=== PATIENT | male | born 1950 | race African-American/Black ===

== ENCOUNTER 2017-07-03 13:07 | Observation (INO) | payer MEDICARE, MEDICAID ==
[2017-07-03 13:38] LABS: #Lymphocytes 1.5 thou/uL (1.20-3.40); #Monocytes 0.5 thou/uL (0.11-0.59); #Neutrophils 3.2 thou/uL (1.40-6.50); %Basophils 0.4 % (0.0-1.0); %Eosinophils 0.8 % (0.0-10.0); %Lymphocytes 28.9 % (21.0-51.0); %Monocytes 8.6 % (0.0-10.0); Mean Platelet Volume 9.6 fL (7.4-10.4); Red Blood Cell (RBC) Count 4.31 mill/uL (4.70-6.10); White Blood Cell (WBC) Count 5.2 thou/uL (4.8-10.8)
--- NOTE | 2017-07-03 13:42 | RAD ---
PORTABLE CHEST: HISTORY: Chest pain. COMPARISON: Comparison is 2-view exam of 05/25/17. FINDINGS: The lungs are clear of infiltrate. Heart is mildly prominent in size. No evidence of vascular conge stion or edema. IMPRESSION: No evidence of acute process. POS: [facility]
[2017-07-03 14:09] LABS: ALT (SGPT) 27 U/L (8-55); AST (SGOT) 34 U/L (5-34); Alkaline Phosphatase 63 U/L (40-150); Anion Gap 11 mmol/L (10-20); BUN (Urea Nitrogen) 14 mg/dL (8.4-25.7); CK (CPK) 75 U/L (30-200); Calc. Creatinine Clearance 0 mL/min (70-130); Calcium 9.1 mg/dL (7.8-10.44); Carbon Dioxide 25 mmol/L (23-31); Chloride 107 mmol/L (98-107); Estimated GFR-MDRD 62; Globulin 3.3 g/dL (2.4-3.5); Protein, Total 6.8 g/dL (5.8-8.1)
[2017-07-03 14:34] LABS: Troponin I 0.034 ng/mL (< 0.028)
[2017-07-03] MEDS ORDERED: Furosemide 40 MG/4 ML VIAL ONE (15:49)
[2017-07-03 16:43] LABS: Acetaminophen Less than 6.0 mcg/mL (10.0-30.0); Salicylate Less than 8.0 mg/dL (15.0-30.0)
[2017-07-03 17:01] LABS: Amphetamine Not Detected (NotDetected); Methadone Not Detected (NotDetected); Methamphetamine Not Detected (NotDetected)
[2017-07-03 17:17] LABS: Troponin I 0.044 ng/mL (< 0.028)
[2017-07-03] MEDS ORDERED: traZODone HCl 50 MG TAB PO PRN (18:14)
[2017-07-03] MEDS ORDERED: Acetaminophen 500 MG TAB PO PRN (18:19)
[2017-07-03] MEDS ORDERED: Nitroglycerin 0.4 MG TAB (25 Tab Bottle) SL PRN (18:22)
[2017-07-03] MEDS ORDERED: methylPREDNISolone Sod Succ/PF 125 MG/2 ML VIAL IVP SCH (18:30)
[2017-07-03] MEDS: Mometasone/Formoterol 120 PUFF INHALER INH SCH (18:33)
[2017-07-03] MEDS: Atorvastatin Calcium 20 MG TAB PO SCH (19:45)
[2017-07-03] MEDS: Enoxaparin Sodium 40 MG/0.4 ML SYRINGE SC SCH (19:46)
[2017-07-03] MEDS: busPIRone HCl 10 MG TAB PO SCH (19:46)
[2017-07-03] MEDS: Gabapentin 300 MG CAP PO SCH (19:47)
[2017-07-03] MEDS: hydrOXYzine 25 MG TAB PO SCH (19:47)
[2017-07-03 20:33] LABS: Troponin I 0.039 ng/mL (< 0.028)
--- NOTE | 2017-07-03 23:47 | HP ---
PRIMARY CARE PHYSICIAN: Dr. Sid Rae. CHIEF COMPLAINT: Shortness of breath and chest pain. HISTORY OF PRESENT ILLNESS: The patient states for the last 1-2 weeks, he has had increasing shortne ss of breath and some substernal chest pain. He has a longstanding heart history including need for AICD placement, which he has delayed several times and has established care with Dr. Forbes on an out patient basis and is being followed by Dr. Osborne on an outpatient basis for his chronic obstructive pu lmonary disease. He states in the last week here, he has attempted a self-management with increase i n Lasix from 40 to 60 mg. He has not noted any lower extremity edema. Denies any fever or chills. Denies any productive sputum, currently. The patient states he continues to have some issues with sd s home health oxygen he normally wears on a p.r.n. basis, predominantly at nighttime. FORMAL REVIEW OF SYSTEMS: No fevers, no chills. Positive shortness of breath with exertion. Positi ve wheeze. Positive tobacco exposure. Patient currently smoking, no productive sputum. No abdomina l pain. Positive chest pain. No lower extremity edema. No dysuria. No urinary frequency. No skin breakdown. REVIEW OF THE PAST FAMILY, MEDICAL AND SOCIAL HISTORY: Includes COPD, hypertension, GERD, osteoarthr itis, seasonal allergies, recurrent, major depression, anxiety, anemia of chronic disease, home healt h oxygen, insomnia, neuropathy of left lower extremity, systolic congestive heart failure, tobacco ab use, opacified pupil right eye, erectile dysfunction, CKD stage 3, history of cocaine abuse and speed abuse, history of opioid dependency and glaucoma. PAST SURGICAL HISTORY: Here in [place], right hand abscess to tendon sheath and osteomyeliti s, status post drainage at the [facility] in [place] on 09/2016 to right thumb. SOCIAL HISTORY: The patient is living with his sister and his children socially. LISTED ALLERGIES: NIACIN. MEDICATIONS AT HOME: Carvedilol 12.5 mg 1 tab p.o. b.i.d., digoxin 125 mcg 1 tab p.o. q. day, baby a spirin 81 mg, trazodone 50 mg at bedtime 1 tab p.o. q. day, pantoprazole 40 mg 1 tab p.o. q. day, esc italopram 10 mg 1 tab p.o. q. day, ferrous sulfate 325 mg 1 tab p.o. q. day, naproxen sodium 500 mg 1 tab p.o. b.i.d. p.r.n. pain, buspirone 15 mg 1 tab p.o. b.i.d., furosemide 40 mg b.i.d. 1 tab p.o. q . day, Advair 250/50 mcg per actuation 1 inhalation p.o. b.i.d., Flonase 50 mcg 1 inhalation per nost ril twice daily, gabapentin 300 mg 1 tab p.o. b.i.d., atorvastatin 20 mg 1 tab p.o. q. day, Klor-Con 20 mEq 1 tab p.o. q. day, Combigan 0.2%-0.5% solution 1 gtt each eye twice daily, Spiriva 18 mcg inha lation q. day and Ventolin 90 mcg 2 puffs p.r.n. shortness of breath. LABORATORY AND IMAGING WORK: White blood cell count of 5.2, hemoglobin of 14.3 and platelet count of 169. D-dimer of 0.3. Sodium of 139, potassium of 4.4, CO2 of 25, creatinine of 1.38 and glucose of 103. AST is 34, ALT is 27, CK-MB of 1.6. BNP of 3100. Troponin 0.034, second troponin 0.044. UDS is negative. No plasma alcohol, acetaminophen or salicylates either. Chest x-ray without acute car diopulmonary events. No evidence of vascular congestion or edema. PHYSICAL EXAMINATION: VITAL SIGNS: Review of vital signs on arrival to the floor, temperature of 97.5, pulse of 62, respir atory rate of 18, oxygen saturation 97% on 2 liters nasal cannula and blood pressure 116/63. GENERAL: The patient is alert and oriented, in no acute distress. HEENT: Head is normocephalic and atraumatic. Extraocular movements are intact. Right pupil is opac ified. Oral mucosa is moist. NECK: Supple. HEART: Regular rate and rhythm. No murmurs auscultated. LUNGS: With bilateral wheezes all lung bunn. No rhonchi, rales or crackles. ABDOMEN: Soft and nontender. Positive bowel sounds throughout. EXTREMITIES: Lower extremities without cyanosis or edema. SKIN: Without breakdown with multiple tattoos. NEUROLOGIC: The patient is alert and oriented x3, no focal deficits. Speech is normal. The patient mostly labile with some depressed mood given social situation regarding family. ASSESSMENT: Chronic obstructive pulmonary disease exacerbation, systolic congestive heart failure, p resent on admission, depression, anxiety, dependent on home oxygen, elevated troponin, chronic kidney disease stage 2-3, tobacco abuse and other illicit drug use. PLAN: The patient has the poor ability to follow up with Pulmonology and Cardiology on an outpatient basis. We will get cardiology's input while he is inpatient. Observation at this point in time, al ternating troponins for any further evaluation. The patient has been scheduled for automatic implant able cardioverter-defibrillator placement 2 times in the past and he has left AMA or not followed up for placement. Last ejection fraction unknown, I believe 15% to 20%. He has received an additional echocardiogram with Dr. Forbes. IV Lasix given in the Emergency Department. His BNP is likely near his baseline given no signs of volume overload on exam during scheduled DuoNebs with IV Solu-Medrol x 1 with initiation of prednisone in the a.m. and continuation of other breathing treatments. Consulti case management for aid with setting up his home oxygen, he states he is out of his portable oxyge n canister. At this point in time, has compressor at home medication and had to seek accommodations to keep the power on due to his family members not being able to pay the bills for the power. Report edly, his sister just got arrested for shoplifting at [facility] regarding additional difficulties of so cial situation at home. If the patient's respiratory status deteriorates, we would consider a consul tation with Pulmonology; has seen Dr. Osborne on outpatient basis recently and if the patient's breathin g status stabilizes and no apparent NC under process, would likely be a candidate for discharge home soon.
[2017-07-04 04:48] LABS: #Lymphocytes 0.5 thou/uL (1.20-3.40); #Monocytes 0.1 thou/uL (0.11-0.59); %Eosinophils 0.2 % (0.0-10.0); %Lymphocytes 11.4 % (21.0-51.0); %Monocytes 2.3 % (0.0-10.0); Hematocrit 43.4 % (42.0-52.0); Mean Platelet Volume 9.9 fL (7.4-10.4); Red Blood Cell (RBC) Count 4.41 mill/uL (4.70-6.10); White Blood Cell (WBC) Count 4.6 thou/uL (4.8-10.8)
[2017-07-04 04:53] LABS: Digoxin Less than 0.15 ng/mL (0.8-2.0)
[2017-07-04 04:54] LABS: ALT (SGPT) 22 U/L (8-55); AST (SGOT) 23 U/L (5-34); Alkaline Phosphatase 66 U/L (40-150); Anion Gap 9 mmol/L (10-20); BUN (Urea Nitrogen) 17 mg/dL (8.4-25.7); Bilirubin, Total 0.9 mg/dL (0.2-1.2); Calc. Creatinine Clearance 51 mL/min (70-130); Calcium 9.1 mg/dL (7.8-10.44); Carbon Dioxide 28 mmol/L (23-31); Chloride 103 mmol/L (98-107); Estimated GFR-MDRD 56; Globulin 3.1 g/dL (2.4-3.5); Protein, Total 6.7 g/dL (5.8-8.1)
[2017-07-04] MEDS: Mometasone/Formoterol 120 PUFF INHALER INH SCH ×2 (06:52→19:53)
[2017-07-04] MEDS ORDERED: Spiriva 18 MCG CAP (Box of 5 Caps) INH SCH (07:00)
[2017-07-04] MEDS: Aspirin 325 MG TAB PO SCH (08:38)
[2017-07-04] MEDS: Carvedilol 6.25 MG TAB PO SCH ×2 (08:39→17:20)
[2017-07-04] MEDS: predniSONE 20 MG TAB PO SCH (08:39)
[2017-07-04] MEDS: Furosemide 20 MG TAB PO SCH ×2 (08:39→15:16)
[2017-07-04] MEDS: Escitalopram Oxalate 10 mg Tablet PO SCH (08:40)
[2017-07-04] MEDS: Digoxin 0.125 MG TAB PO SCH (08:40)
[2017-07-04] MEDS: busPIRone HCl 10 MG TAB PO SCH ×2 (08:42→19:38)
[2017-07-04] MEDS: Gabapentin 300 MG CAP PO SCH ×2 (08:42→19:38)
[2017-07-04] MEDS: Azithromycin 250 MG TAB PO SCH (08:42)
[2017-07-04] MEDS: Potassium Chloride 20 MEQ TAB PO SCH (08:42)
[2017-07-04] MEDS: Brimonidine Tartrate 0.2% Ophth Soln 5 ml Bottle EA EYE SCH (11:48)
[2017-07-04] MEDS: HYDROcodone/Acetaminophen 5/325 mg Tablet PO PRN ×2 (11:48→19:41)
[2017-07-04] MEDS: Timolol 0.5% Ophth Soln 5 ml Bottle EA EYE SCH (11:49)
--- NOTE | 2017-07-04 13:04 | PRG ---
DATE OF SERVICE: 07/04/2017 SUBJECTIVE: The patient is sitting up in bed. Reports improved breathing, but still having shortnes s of breath. He denies chest pain at this time. PHYSICAL EXAMINATION: VITAL SIGNS: Temperature is 97.4, pulse 65, respirations 20, oxygen saturation 96% on 2 liters and b lood pressure 133/77. GENERAL: Alert and oriented, in no acute distress. HEENT: Normocephalic. Pupils equally round and react to light. Extraocular muscles intact. Moist mucous membranes. HEART: Regular rate and rhythm. No murmurs. LUNGS: Positive for mild diffuse wheezes. No rales. ABDOMEN: Soft, nontender, bowel sounds heard throughout. EXTREMITIES: No cyanosis, clubbing or edema. SKIN: No rashes or lesions. LABORATORY DATA: White blood cell count 4.6, hemoglobin 14.6, hematocrit 43.4, platelets 153. Sodium 137, potassium 3.2, chloride 103, carbon dioxide 28, BUN 17, creatinine 1.51, glucose 285, tricia cium 9.1, total bilirubin 0.9, AST 23, ALT 22, alkaline phosphatase 66. CK-MB 1.6, troponin 0.034, 0 .044, 0.039. BNP 3180, total protein 6.7, albumin 3.6, globulin 3.1. Drug screen negative. ASSESSMENT AND PLAN: 1. Chronic obstructive pulmonary disease exacerbation. Continue oral steroids, antibiotics and oxyg en as needed. 2. Chronic systolic congestive heart failure. 3. Chronic kidney disease stage 3. 4. Extensive history of drug use, drug screen was negative on this admission. DISPOSITION: The patient's symptoms on this admission more likely due to COPD exacerbation. However , he does have severe CHF and has been advised to have an AICD placed, but he has deferred. He has s een Dr. Forbes in the past. His BNP is up to greater than 3000 on this admission, which may be contr ibuting to his symptoms, but he does not appear to be fluid overloaded at this time. We have asked C ardiology to evaluate him while he is here.
[2017-07-04 17:26] VITALS: BMI 21.2
[2017-07-04] MEDS: Atorvastatin Calcium 20 MG TAB PO SCH (19:38)
[2017-07-04] MEDS: Enoxaparin Sodium 40 MG/0.4 ML SYRINGE SC SCH (19:38)
[2017-07-04] MEDS: hydrOXYzine 25 MG TAB PO SCH (19:39)
[2017-07-05] MEDS: Mometasone/Formoterol 120 PUFF INHALER INH SCH (07:05)
--- NOTE | 2017-07-05 08:10 | CON ---
DATE OF CONSULTATION: 07/04/2017 HISTORY: Humberto Sandhu is a pleasant 67-year-old black male with history of heart failure for several years. He apparently has syncopal episode 1 year ago in [place], [place]. He has undergone multiple cardiac catheterizations , is already has been told that he did not have any significant coronary artery disease. He also was placed on LifeVest, which he wore up until 4 or 5 months ago. He moved to this area approximately 3 months ago. He now is admitted with shortness of breath and pressure in his chest that seems to be somewhat pleuritic in nature. He had borderline cardiac enzymes and consultation was requested. PAST MEDICAL HISTORY: COPD on home oxygen, hypertension, GERD, arthritis, anxiety, depression, systolic dysfunction, history of cocaine abuse and methamphetamine abuse, glaucoma, chronic kidney disease. OPERATIONS: Drainage of her right hand abscess. MEDICATIONS: At home include carvedilol 12.5 b.i.d. (he stopped lisinopril due to hypotension) buspirone 15 mg daily, Durezol eyedrops, digoxin 0.125 daily, Lexapro 10 mg daily, ferrous sulfate 325 daily, Flovent daily, furosemide 40 mg daily, gabapentin 300 b.i.d., naproxen 500 b.i.d., Protonix 40 daily, KCl 20 mEq daily, and trazodone 50 at bedtime. ALLERGIES: NIACIN. SOCIAL HISTORY: Continues to intermittently smoke. FAMILY HISTORY: Negative for coronary artery disease. PHYSICAL EXAMINATION: VITAL SIGNS: 115/71, pulse 63. HEENT: PERRL. CHEST: Reveal expiratory wheezing bilaterally. CARDIOVASCULAR: S1 and S2 are normal, without any S3, S4 or murmurs. ABDOMEN: Normal bowel sounds, without tenderness, organomegaly. EXTREMITIES: Revealed no clubbing, cyanosis, or edema. NEUROLOGIC: Grossly intact. SKIN: Warm and dry. LABORATORY DATA: EKG revealed normal sinus rhythm, low voltage, possible septal infarction. Sodium 137, potassium 3.2, chloride 103, carbon dioxide 28, BUN is 17, creatinine 1.51, glucose 285, troponin I 0.044, CK-MB is normal. BNP 3180.1, hemoglobin 14.6, hematocrit 43.4, white count 4600, platelets 153, 000. IMPRESSION: 1. Chronic obstructive pulmonary disease exacerbation. 2. Severe left ventricular dysfunction with ejection fraction in the office 1 month ago of 15-20%, arrangements have been made for him to see Dr. Tavares for ICD placement; however, he states that he "chickened out" and does not wish to have an ICD placed. 3. Hypertension. 4. Gastroesophageal reflux disease. 5. Currently, no significant coronary artery disease on catheterizations in the past according to the patient. RECOMMENDATIONS: Mr. Sandhu has apparently canceled when he had ICD scheduled and essentially does not wish to have 1 placed. At the present time, his breathing has improved with intravenous steroids and increased neb treatments. I do not feel that it is minimally elevated, troponin I's need to be further evaluated and probably related to demand ischemia. JONATHAN
[2017-07-05] MEDS: Gabapentin 300 MG CAP PO SCH (08:31)
[2017-07-05] MEDS: Digoxin 0.125 MG TAB PO SCH (08:31)
[2017-07-05] MEDS: Escitalopram Oxalate 10 mg Tablet PO SCH (08:31)
[2017-07-05] MEDS: Furosemide 20 MG TAB PO SCH (08:31)
[2017-07-05] MEDS: Azithromycin 250 MG TAB PO SCH (08:32)
[2017-07-05] MEDS: Aspirin 325 MG TAB PO SCH (08:32)
[2017-07-05] MEDS: Timolol 0.5% Ophth Soln 5 ml Bottle EA EYE SCH (08:32)
[2017-07-05] MEDS: Carvedilol 6.25 MG TAB PO SCH (08:32)
[2017-07-05] MEDS: predniSONE 20 MG TAB PO SCH (08:32)
[2017-07-05] MEDS: busPIRone HCl 10 MG TAB PO SCH (08:32)
[2017-07-05] MEDS: Potassium Chloride 20 MEQ TAB PO SCH (08:32)
[2017-07-05] MEDS: Brimonidine Tartrate 0.2% Ophth Soln 5 ml Bottle EA EYE SCH (08:33)
[2017-07-05 11:34] VITALS: BP 104/72; TEMP 98.6
--- NOTE | 2017-07-05 18:49 | DIS ---
DATE OF DISCHARGE: 07/03/2017 DATE OF DISCHARGE: 07/05/2017 PRIMARY CARE PHYSICIAN: Dr. Sid Rae. ADMISSION DIAGNOSES: 1. Chronic obstructive pulmonary disease exacerbation. 2. Chronic systolic congestive heart failure. 3. Anxiety. 4. Indeterminate troponins. DISCHARGE DIAGNOSES: 1. Chronic obstructive pulmonary disease exacerbation, improved. 2. Chronic systolic congestive heart failure. 3. Chronic kidney disease stage 3. 4. Extensive history of drug use. CONSULTS: Dr. James, Cardiology. PROCEDURES: None. DISCHARGE MEDICATIONS: 1. Continue home medications. 2. Azithromycin 250 mg p.o. q. day for 3 more days. 3. Prednisone 40 mg p.o. q. day for 5 more days. 4. [place] 10/325 mg p.o. b.i.d. p.r.n. severe pain, quantity 15. HOSPITAL COURSE: This is a 67-year-old black male with past medical history of COPD, CHF, CKD, exten sive history of drug use, who presented to the emergency room with shortness of breath for a couple o f weeks. He did have wheezing on exam. He was given IV steroids and continued oral steroids. Prior to discharge, his wheezing resolved as well as his shortness of breath and cough. As for his chronic congestive heart failure, he was not fluid overloaded on this hospital visit. He has been advised to have an AICD placed, but has refused. Dr. James did see him on this hospital admission and again discussed with him his severe heart failure. The patient continues to refuse con tinued treatment for this. DISPOSITION: Stable. DISCHARGE INSTRUCTIONS: 1. Discharged to home. 2. Activity: Ad rashmi. 3. Diet: Heart healthy. 4. Followup: Follow up visit with Dr. Rae in 7-10 days.
== END 2017-07-05 12:45 | disposition home or self-care (01) ==
LOC: ERS 13:07 → 2SW 16:05
PROVIDERS: ADMIT Family Medicine; ATTEND Family Medicine
DX: J44.1 Chronic obstructive pulmonary disease with (acute) exacerbation (principal); I13.0 Hypertensive heart and chronic kidney disease with heart failure and stage 1 through stage 4 chronic kidney disease, or unspecified chronic kidney disease; I50.22 Chronic systolic (congestive) heart failure; N18.3 Chronic kidney disease, stage 3 (moderate); F14.10 Cocaine abuse, uncomplicated; F17.200 Nicotine dependence, unspecified, uncomplicated; M19.90 Unspecified osteoarthritis, unspecified site; K21.9 Gastro-esophageal reflux disease without esophagitis; G47.00 Insomnia, unspecified; Z88.8 Allergy status to other drugs, medicaments and biological substances; Z79.899 Other long term (current) drug therapy
CPT/HCPCS: 71010; 80053 ×2; 80162; 80306; 80307; 82550; 82553; 83880; 84484 ×2; 85025 ×2; 85379; 93005; 94640 ×8; 94760; 96372 ×2; 96374; 96375; 99285; G0378; 36415; J1650; J1940; J2930; J7506; J7620

== ENCOUNTER 2017-07-23 21:38 | Emergency (ER) | payer MEDICARE, MEDICAID ==
[2017-07-23] MEDS ORDERED: Proparacaine 0.5% Opth 15 ML BOT ONE (23:05)
[2017-07-23] MEDS ORDERED: Fluorescein Opthalmic Strip ONE (23:05)
[2017-07-23] MEDS ORDERED: Ketorolac Tromethamine 30 MG/ML VIAL ONE (23:33)
[2017-07-23] MEDS ORDERED: Ciprofloxacin 0.3% Ophth Drops 2.5 ml Bottle EA EYE SCH (23:45)
== END 2017-07-23 23:57 | disposition home or self-care (01) ==
LOC: ERS 21:38
DX: H10.9 Unspecified conjunctivitis (principal); I11.0 Hypertensive heart disease with heart failure; I50.9 Heart failure, unspecified; E78.5 Hyperlipidemia, unspecified; J43.9 Emphysema, unspecified; F41.9 Anxiety disorder, unspecified; F17.210 Nicotine dependence, cigarettes, uncomplicated
CPT/HCPCS: 36415; 71045; 80053; 80306; 80307; 81003; 82550; 82553; 83880; 84484; 85025; 85610; 85730; 93005; 96372; 96374; J1885

== ENCOUNTER 2017-07-25 19:41 | Emergency (ER) | payer MEDICARE, MEDICAID ==
[2017-07-25] MEDS ORDERED: Fluorescein Opthalmic Strip ONE (21:46)
[2017-07-25] MEDS ORDERED: Proparacaine 0.5% Opth 15 ML BOT ONE (21:46)
[2017-07-25] MEDS ORDERED: Ketorolac Tromethamine 30 MG/ML VIAL ONE (21:55)
== END 2017-07-25 22:45 | disposition home or self-care (01) ==
LOC: ERS 19:41
DX: H16.001 Unspecified corneal ulcer, right eye (principal); H10.9 Unspecified conjunctivitis; I11.0 Hypertensive heart disease with heart failure; I50.9 Heart failure, unspecified; J44.9 Chronic obstructive pulmonary disease, unspecified; F41.9 Anxiety disorder, unspecified; F17.210 Nicotine dependence, cigarettes, uncomplicated; E78.5 Hyperlipidemia, unspecified
CPT/HCPCS: 96372; J1885

== ENCOUNTER 2017-08-01 16:13 | Inpatient (IN) | payer MEDICARE, MEDICAID ==
[2017-08-01] MEDS ORDERED: Nitroglycerin 0.4 MG TAB (25 Tab Bottle) ONE (16:34)
[2017-08-01] MEDS ORDERED: Nitroglycerin 50 MG/250 ML BOT 0 ML ONE (16:35)
[2017-08-01 16:39] LABS: #Eosinphils 0.1 thou/uL (0.0-0.7); #Lymphocytes 1.5 thou/uL (1.20-3.40); #Monocytes 0.9 thou/uL (0.11-0.59); #Neutrophils 4.3 thou/uL (1.40-6.50); %Basophils 0.2 % (0.0-1.0); %Eosinophils 1.6 % (0.0-10.0); %Lymphocytes 22.4 % (21.0-51.0); %Monocytes 12.7 % (0.0-10.0); %Neutrophils 63.2 % (42.0-75.0); Hemoglobin 13.5 g/dL (14.0-18.0); Mean Corpuscular HGB CONC 32.5 g/dL (32.0-36.0); Mean Corpuscular Hemoglobin 32.6 pg (27.0-31.0); Mean Platelet Volume 7.5 fL (7.4-10.4); Platelet Count 300 thou/uL (130-400); RBC Distribution Width 12.8 % (11.5-14.5); Red Blood Cell (RBC) Count 4.14 mill/uL (4.70-6.10); White Blood Cell (WBC) Count 6.8 thou/uL (4.8-10.8)
[2017-08-01] MEDS ORDERED: Insulin Regular 300 UNITS/3 ML VIAL ONE (16:43)
[2017-08-01] MEDS ORDERED: Sodium Bicarb 50 MEQ/50 ML Abboject 8.4% SYRINGE ONE (16:43)
[2017-08-01] MEDS ORDERED: Dextrose 50% Abboject 50 ML SYRINGE ONE (16:43)
[2017-08-01] MEDS ORDERED: Calcium Chloride 1 GM/10 ML Abboject SYRINGE ONE (16:43)
[2017-08-01] MEDS ORDERED: Amiodarone In Dextrose 200 ML IVPB SCH ×2 (16:45→18:00)
[2017-08-01] MEDS ORDERED: Calcium Gluc 4.6 MEQ/10 ML (100 MG/ML) ONE (16:46)
[2017-08-01] MEDS ORDERED: Albuterol Sulfate 2.5 mg/3 ml Neb ONE (16:50)
[2017-08-01] MEDS ORDERED: Albuterol Sulfate 2.5 mg/0.5 ml Neb ONE (16:50)
[2017-08-01 16:58] LABS: ALT (SGPT) 23 U/L (8-55); AST (SGOT) 27 U/L (5-34); Albumin 3.9 g/dL (3.4-4.8); Alkaline Phosphatase 68 U/L (40-150); Anion Gap 15 mmol/L (10-20); BUN (Urea Nitrogen) 10 mg/dL (8.4-25.7); Bilirubin, Total 1.4 mg/dL (0.2-1.2); CK (CPK) 166 U/L (30-200); Calc. Creatinine Clearance 0 mL/min (70-130); Calcium 9.5 mg/dL (7.8-10.44); Carbon Dioxide 29 mmol/L (23-31); Chloride 99 mmol/L (98-107); Estimated GFR-MDRD 69; Globulin 3.6 g/dL (2.4-3.5); Glucose 100 mg/dL (80-115); Lipase 11 U/L (8-78); Potassium 3.5 mmol/L (3.5-5.1); Protein, Total 7.5 g/dL (5.8-8.1); Sodium 139 mmol/L (136-145)
[2017-08-01 17:00] LABS: CKMB 2.1 ng/mL (0-6.6); Troponin I 0.064 ng/mL (< 0.028)
[2017-08-01] MEDS ORDERED: Potassium Chloride 20 MEQ/100 ML PREMIX BAG ONE (17:07)
--- NOTE | 2017-08-01 17:13 | RAD ---
CHEST ONE VIEW 08/01/17 HISTORY: Chest pain. COMPARISON: CHEST ONE VIEW 07/23/17. The heart size is enlarged. There are air space opacities in both lung bases. Nodular density is pres ent in the left lung base. No pneumothorax. Right upper lobe and right middle lobe air space opacities are also present. IMPRESSION: 1. Concern for multifocal air space opacities in the lower lobe and right middle lobe. Followup recommended. 2. Cardiomegaly. 3. Nodular density left lung base may represent calcified granuloma versus prominent nipple shad ow. POS: [facility]
[2017-08-01] MEDS ORDERED: CCU Electrolyte Replacement 1 EACH FS SCH (18:00)
[2017-08-01] MEDS ORDERED: cefTRIAXone\\ROCEPHIN 1 GM in Sodium Chloride 0.9% 100 ML IVPB SCH (18:00)
[2017-08-01] MEDS ORDERED: Potassium Phosphate 9 MMOL in Sodium Chloride 0.9% 100 ML IVPB PRN (18:16)
[2017-08-01] MEDS ORDERED: Potassium Phosphate 12 MMOL in Sodium Chloride 0.9% 250 ML 250 ML IV PRN (18:16)
[2017-08-01] MEDS ORDERED: Potassium Phosphate 15 MMOL in Sodium Chloride 0.9% 250 ML 250 ML IV PRN (18:16)
[2017-08-01] MEDS ORDERED: Magnesium 2 GM/NS 0.9% 100 ML 2 GM in Premix Bag 1 BAG IVPB PRN (18:16)
[2017-08-01] MEDS ORDERED: Potassium Chloride 20 MEQ TAB PO PRN (18:16)
[2017-08-01] MEDS ORDERED: CCU ELECTROLYTE REPLACEMENT PROTOCOL FS PRN (18:16)
[2017-08-01] MEDS ORDERED: Magnesium Oxide 400 MG TAB PO PRN ×2 (18:16)
[2017-08-01] MEDS ORDERED: Potassium Chloride 40 MEQ in Sodium Chloride 0.9% 250 ML 250 ML IVPB PRN (18:16)
[2017-08-01] MEDS ORDERED: Ondansetron HCl/PF 4 MG/2 ML Vial IVP PRN (19:42)
[2017-08-01] MEDS ORDERED: D5 1/2 NS w/20 mEq KCL 1,000 ML IV SCH (19:45)
[2017-08-01] MEDS ORDERED: Amiodarone HCl 150 MG, Admixture Fee 1 EACH in Dextrose 5% in Water 100 ML IVPB SCH (19:45)
[2017-08-01] MEDS ORDERED: Nitroglycerin 2% Ointment 1 INCH/1 GM Packet TOP SCH (19:45)
[2017-08-01 19:47] VITALS: BMI 21.7
[2017-08-01] MEDS: Gabapentin 300 MG CAP PO SCH (19:57)
[2017-08-01] MEDS: traZODone HCl 50 MG TAB PO SCH ×2 (19:57→20:13)
[2017-08-01] MEDS: cefTRIAXone\\ROCEPHIN 1 GM, Syringe 0.4 ML in Sterile Water 9.6 ML SLOW IVP SCH (20:29)
[2017-08-01 20:30] LABS: Troponin I 0.059 ng/mL (< 0.028)
--- NOTE | 2017-08-01 20:48 | HP ---
PRIMARY CARE PHYSICIAN: Sid Rae MD CHIEF COMPLAINT: Chest pain, shortness of breath. HISTORY OF PRESENT ILLNESS: This is a 67-year-old gentleman with a long history of coronary artery disease with severely depressed left ventricular ejection fraction, a long history of COPD, history of homelessness, history of drug abuse, who presented to the emergency department with the worsening chest pain and shortness of breath. He has been to the emergency department several times over the past 1 week. He was seen in the ER on 07/23/2017 due to chest pain. He was found to have an abnormal chest x-ray on that visit with evidence of nonspecific densities in the lung bases. He was treated in the ED and sent home. He was to follow up with Dr. Rae, prior to this admission. He states that he had become more and more short of breath at home and not able to manage and now, he is being brought into the hospital for further evaluation. In the emergency department, he was found to have abnormal rhythm. He has a history of severely depressed left ventricular ejection fraction. He was told to wear a LifeVest from Electrophysiology and was planning on having an ICD placed when he decided to refuse that and removed the LifeVest. He understands the possible consequences of not wearing a LifeVest and not having an ICD placed including and he continues to refuse pursuing this at this time. PAST MEDICAL HISTORY: COPD, end-stage coronary artery disease with severely decreased left ventricular, chronic kidney disease stage 3, history of cocaine and amphetamine abuse, history of opioid dependency, history of glaucoma, right eye blindness, depression and anxiety, anemia of chronic disease, neuropathy of the left lower extremity. PAST SURGICAL HISTORY: Abscess of his right hand repair with osteomyelitis status post drainage at the [facility] to his right thumb in 09/2016, repeated cardiac catheterizations. He also states that he was told he needed a stent place, but he refused that as well. MEDICATIONS: Include carvedilol 12.5 mg b.i.d., digoxin 125 mcg daily, aspirin 81 mg daily, trazodone 50 mg at bedtime, pantoprazole 40 mg daily, Lexapro 10 mg daily, ferrous sulfate 325 mg daily, naproxen p.r.n. pain, buspirone 15 mg b.i.d., furosemide 40 mg b.i.d., Advair 250/50 b.i.d., Flonase daily, gabapentin 300 mg b.i.d., atorvastatin 20 mg daily, Klor-Con 20 mEq daily, eyedrops, Spiriva 18 mcg daily. SOCIAL HISTORY: Lives with a roommate. He is single. He does have 3 children. FAMILY HISTORY: Mother , father of possible diabetes, possible blood clot, states he has siblings with heart disease as well. REVIEW OF SYSTEMS: As per the history of present illness. General: Denies any recent fevers, chills. HEENT: Positive blindness in the right eye. Denies congestion. Denies headache. Cardiac: As per the history of present illness. He admits to chest pains, admits to shortness of breath. Positive palpitations, see last cardiac consultation from the last hospitalization in June. Pulmonary: Positive cough, positive shortness of breath, no hemoptysis. Uncertain of TB exposure. Gastrointestinal: No nausea, vomiting, abdominal pain, melena, or hematochezia. Genitourinary: He has a history of a ventral hernia, which causes some pain when he is coughing. Neurologic: Positive history of neuropathy. Psychiatric: Positive depression. Positive anxiety. Positive history of drug use. Musculoskeletal: Positive joint pains. OBJECTIVE: VITAL SIGNS: Temperature is afebrile, heart rate 80-90 and irregular, respirations 15-20, blood pressure 130 over 80s. GENERAL: He is awake and alert. Speech is clear. Mucosa is moist. He has opacity in his right cornea. NECK: Supple. HEART: Irregular with ectopy. LUNGS: With scattered rhonchi, positive for expiratory wheezes. Decreased breath sounds throughout. ABDOMEN: He does have a palpable ventral hernia, soft, nontender, nondistended. No hepatosplenomegaly. EXTREMITIES: No clubbing, cyanosis, or edema. Has 2+ peripheral pulses bilaterally. LABORATORY DATA: White blood cell count 6.8, hemoglobin and hematocrit 13.5 and 41.6 with microcytic indices, platelets of 300. Sodium 139, potassium 3.5, chloride 99, CO2 of 29, BUN and creatinine 10 and 1.27 with a GFR of 69, serum glucose of 100. Lactic acid 2.6, total bilirubin slightly elevated at 1.4, calcium of 9.5. AST and ALT are normal. Creatinine kinase was normal. Troponins are indeterminate of 0.04 and 0.06. Lipase was normal. TSH was normal. Influenza was negative. Chest x-ray compared to 1 week ago, revealed a right upper lobe and right middle lobe airspace opacities concerning for multifocal airspace opacities in the lower lobe and right middle lobe, cardiomegaly. ASSESSMENT: This is a 67-year-old gentleman with end-stage heart disease and severe chronic obstructive pulmonary disease, now with bilateral pneumonia. PLAN: 1. Pneumonia. We will admit due to his severe COPD and episodes of hypoxemia, we will admit him to the ICU. I will continue IV antibiotics, albuterol therapy , as well as steroids. 2. Severe left ventricular dysfunction with ejection fraction of less than 20% , now with arrhythmias. He refuses ICD placement with Dr. Tavares, recently. We will continue with an amiodarone drip as per Dr. Wasserman. 3. Hypertension is stable. We will continue meds. 4. History of gastroesophageal reflux disease. We will continue Protonix prophylactically. 5. Disposition. Will assure a safe place of discharge. He may need placement. CODE STATUS: After a discussion, at this time, the patient desires FULL CODE. MTDD
[2017-08-01] MEDS ORDERED: Amiodarone 200 MG TAB PO SCH (21:00)
[2017-08-01] MEDS ORDERED: FLU VACC TS2017-18 (>65YR) 0.5 ML SYRINGE IM ONE (21:00)
[2017-08-01] MEDS ORDERED: Carvedilol 6.25 MG TAB PO SCH (21:00)
[2017-08-01] MEDS ORDERED: Azithromycin 500 MG in Sodium Chloride 0.9% 250 ML 250 ML IVPB SCH (21:00)
[2017-08-01 21:02] LABS: Lactic Acid 0.9 mmol/L (0.5-2.2)
[2017-08-01] MEDS ORDERED: DOPamine 400 MG/D5W 250 ML 250 ML ONE (21:18)
[2017-08-01] MEDS ORDERED: DOBUTamine 500 mg/250 ml 250 ML ONE (21:19)
[2017-08-01] MEDS ORDERED: Diazepam 10 MG/2 ML SYRINGE IVP SCH (22:15)
[2017-08-01 22:39] LABS: Actual Bicarbonate (HCO3a) 23.1 mEq/L (22-26); Base Excess (BEa) -2.7 mEq/L (0 (+/-) 2.5); CO2 Tension 44.3 mmHg (35.0-45.0); O2 Tension (PaO2) 65.5 mmHg (80.0-100.0); pH, Arterial 7.34 (7.35-7.45)
[2017-08-01 22:40] LABS: Calcium, Ionized 1.1 mmol/L (1.12-1.30); Hematocrit-ABG 36.8 % (42.0-52.0); Hemoglobin (Hb) 12.1 g/dL (14.0-18.0); Puncture Site RRAD
--- NOTE | 2017-08-01 23:51 | RAD ---
CHEST ONE VIEW 08/01/17 HISTORY: Central line placement. COMPARISON: Chest one view same day. FINDINGS: Interval placement of the internal jugular central venous catheter with the tip at the inferior SVC. Worsening right lower and mid lung air space opacities. Heart size is enlarged. IMPRESSION: 1. Worsening air space opacities concerning for pneumonia. 2. Satisfactory position of the central venous catheter without complication. POS: [facility]
[2017-08-02 00:03] LABS: Troponin I 0.061 ng/mL (< 0.028)
[2017-08-02] MEDS: Amiodarone HCl 450 MG, Admixture Fee 1 EACH in Dextrose 5% in Water 250 ML IVPB SCH ×2 (00:22→14:39)
--- NOTE | 2017-08-02 01:09 | CON ---
DATE OF CONSULTATION: 08/01/2017 REASON FOR CONSULTATION: Cardiomyopathy and nonsustained VT. PRIMARY CARE PROVIDER: Dr. Dwayne Herrera. Total critical care time 50 minutes. HISTORY OF PRESENT ILLNESS: Mr. Sandhu is an unfortunate 67-year-old gentleman who was seen and evalu ated by Dr. Emory James in June. He has a history of nonischemic cardiomyopathy. He has ref used ICD placement in the past. He recently presented with increased shortness of breath, and palpit ations. He also has a history of continued cocaine and amphetamine use. He describes PND and orthop ankit. He states he has worn a LifeVest for over 3 months in the past. When it came time for ICD plac ement, he refused. PAST MEDICAL HISTORY: As above including COPD, glaucoma, right eye blindness, neuropathy, anemia. HOME MEDICATIONS: Include carvedilol, digoxin, aspirin, trazodone, pantoprazole, Lexapro, iron sulfa te, naproxen, buspirone, furosemide, Flonase, atorvastatin, and Spiriva. SOCIAL HISTORY: He is single with 3 children. REVIEW OF SYSTEMS: Ten point review of systems is reviewed and as above, otherwise negative. PHYSICAL EXAMINATION: GENERAL: Patient is a pleasant male/female who is in no acute distress. The patient does appear older than stated age. VITAL SIGNS: Blood pressure 121/97, pulse 89, temperature 98.1. NEUROLOGIC: The patient is alert and oriented times 3 with no focal neurologic deficits. HEENT: Sclerae without icterus. Mouth has moist mucous membranes with normal pallor. NECK: No JVD. Carotid upstroke brisk. No bruits bilaterally. LUNGS: Clear to auscultation with unlabored respirations. BACK: No scoliosis or kyphosis. CARDIAC: Regular rate and rhythm with normal S1 and S2. No S3 or S4 noted. No significant rubs, murmurs, thrills, or gallops noted throughout the precordium. PMI is not displa christiana. There is no parasternal heave. ABDOMEN: Soft, nontender, nondistended. No peritoneal signs present. No hepatosplenomegaly. No abnormal striae. EXTREMITIES: 2+ femoral and 2+ dorsalis pedis pulses. No cyanosis, clubbing, or edema. SKIN: No gross abnormalities. PERTINENT LABORATORY DATA: Hemoglobin 13.5. Peak troponin 0.064. Lactic acid 0.9, hemoglobin 13.5, white blood cell count 6.8. ER COURSE: Patient was given a dose of IV amiodarone with improvement in PVCs. He continued to have PVCs while in the ICU and was given additional dose of 150 mg amiodarone. IMPRESSION: 1. Nonischemic cardiomyopathy. 2. Nonsustained ventricular tachycardia. 3. Noncompliance. 4. Cocaine and amphetamine use. RECOMMENDATIONS: Patient has been given a total of 300 mg of amiodarone. We would recommend continu ed amiodarone drip. He would likely benefit from ICD placement. I did discuss this with Mr. Sandhu. He is amenable to ICD placement. We will continue to monitor closely in the ICU. ADDENDUM: I was called 3 hours after and came in to see Mr. Sandhu. He was refusing all treatment. His ABG revealed a pH of 7.3 with CO2 of 44 and pO2 of 65. He stated he was having difficulty breath ing. His lungs appeared clear. He was bradycardic and hypotensive. He did receive a dose of Coreg 12.5 mg x1. This has now been held. He will start dopamine/dobutamine at 5 and 5. I did disc uss continued treatment with Mr. Sandhu. The patient appears ambivalent and not committed to treatmen t. He did state to the nurses he wanted to be DNR, but could not make a decision when I discussed th e same issue with Mr. Sandhu. We will continue treatment. He appears to be of sound mind and at this point, he is able to make his own decisions and will honor his wishes. If he decides to not proceed with any further therapy, we will need to cease. As long as he continues to comply, we will continu e to treat him aggressively.
[2017-08-02] MEDS: DOBUTamine 500 mg/250 ml 500 MG in Premix Bag 1 BAG IVPB SCH ×3 (03:41→21:03)
[2017-08-02 05:39] LABS: #Eosinphils 0.1 thou/uL (0.0-0.7); #Monocytes 0.9 thou/uL (0.11-0.59); #Neutrophils 6.1 thou/uL (1.40-6.50); %Basophils 0.1 % (0.0-1.0); %Eosinophils 0.9 % (0.0-10.0); %Lymphocytes 12.7 % (21.0-51.0); %Monocytes 10.9 % (0.0-10.0); %Neutrophils 75.4 % (42.0-75.0); Hemoglobin 11.4 g/dL (14.0-18.0); Mean Corpuscular HGB CONC 32.1 g/dL (32.0-36.0); Mean Corpuscular Hemoglobin 32.1 pg (27.0-31.0); Mean Platelet Volume 7.9 fL (7.4-10.4); Platelet Count 226 thou/uL (130-400); RBC Distribution Width 12.7 % (11.5-14.5); Red Blood Cell (RBC) Count 3.55 mill/uL (4.70-6.10); White Blood Cell (WBC) Count 8.1 thou/uL (4.8-10.8)
[2017-08-02 05:53] LABS: ALT (SGPT) 23 U/L (8-55); AST (SGOT) 39 U/L (5-34); Albumin 3.3 g/dL (3.4-4.8); Alkaline Phosphatase 100 U/L (40-150); Anion Gap 10 mmol/L (10-20); BUN (Urea Nitrogen) 10 mg/dL (8.4-25.7); Bilirubin, Total 0.9 mg/dL (0.2-1.2); Calc. Creatinine Clearance 71 mL/min (70-130); Calcium 8.7 mg/dL (7.8-10.44); Carbon Dioxide 32 mmol/L (23-31); Chloride 101 mmol/L (98-107); Estimated GFR-MDRD 82; Glucose 128 mg/dL (80-115); Protein, Total 6.3 g/dL (5.8-8.1); Sodium 140 mmol/L (136-145)
[2017-08-02 05:58] LABS: Potassium 2.9 mmol/L (3.5-5.1)
[2017-08-02] MEDS: Potassium Chloride 40 MEQ in Premix Bag 1 BAG IVPB PRN (06:04)
[2017-08-02 06:11] LABS: HIV (1/2) Antibody/Antigen Non-Reactive (NonReactive); HIV 1/2 INDEX 0.21 S/CO (<1.00)
--- NOTE | 2017-08-02 06:46 | OP-2 ---
DATE OF PROCEDURE: 07/22/2017 PROCEDURE: Internal jugular central line placement. INDICATION: Multiple medication administration. We were consulted by Dr. Herrera. PROCEDURE TALENT ADVISOR: Dr. Mejia and Dr. Lida Navas. ATTENDING PHYSICIAN: Dr. Shelton. CONSENT: Consent was obtained from Mr. Sandhu prior to the procedure. Indications, risks and benefit s were explained at length. The procedure was performed emergently and the permission was implied be cause of the emergent nature. PROCEDURE SUMMARY: The [facility] central line insertion practices form was completed by an independent obs erver starting with the first hand wash prior to starting sterile technique. A time-out was massiel philippe. My hands were washed medially prior to procedure. I wore a surgical cap, mask with protective ey ewear, full gown and sterile gloves throughout the procedure. The patient was placed in Trendelenbur g per physician. Right chest region was prepped using chlorhexidine scrub and draped in sterile fash ion using a 3/4 sheet draped in sterile towels. Medial and lateral heads of the sternocleidomastoid muscle were identified as were the carotid pulse. Internal jugular vein was identified using ultraso und. Anesthesia was achieved over the vein using 1% lidocaine using real time out of plain guidance, introducer needle was inserted into the internal jugular vein under direct ultrasound visualization. Venous blood was withdrawn. The syringe was removed and a guidewire was advanced into the introduc er needle. Guidewire was visualized in the internal jugular vein by ultrasound. A small incision wa s made at the skin surface with a scalpel and the introducer needle was exchanged for a dilator over the guidewire. After appropriate dilatation was obtained, the dilator was exchanged over the wire fo r a central venous catheter. The wire was removed and the catheter was sutured in place at 18 cm. A sterile SorbaView shield was placed over the catheter at the insertion site. The patient tolerated the procedure without any hemodynamic compromise. At time of procedure completion, all ports were as pirated and flushed properly. Post-procedure chest x-ray is pending at this time. Estimated blood l oss is 10 mL.
[2017-08-02] MEDS: Timolol 0.5% Ophth Soln 5 ml Bottle EA EYE SCH (08:58)
[2017-08-02] MEDS: Brimonidine Tartrate 0.2% Ophth Soln 5 ml Bottle EA EYE SCH (08:58)
[2017-08-02] MEDS: DIFLUPREDNATE EA EYE SCH (08:58)
[2017-08-02] MEDS: BOT EA EYE SCH (08:58)
[2017-08-02] MEDS: busPIRone HCl 10 MG TAB PO SCH (09:00)
[2017-08-02] MEDS: predniSONE 20 MG TAB PO SCH (09:00)
[2017-08-02] MEDS: Gabapentin 300 MG CAP PO SCH ×2 (09:00→21:04)
[2017-08-02] MEDS: Escitalopram Oxalate 10 mg Tablet PO SCH (09:01)
[2017-08-02] MEDS: Ferrous Sulfate 325 MG TAB PO SCH (09:01)
[2017-08-02] MEDS: Furosemide 40 MG TAB PO SCH (09:01)
[2017-08-02] MEDS: Digoxin 0.125 MG TAB PO SCH (09:01)
--- NOTE | 2017-08-02 11:48 | RAD ---
PORTABLE UPRIGHT FRONTAL CHEST: Date: 08/02/17 COMPARISON: 08/01/17. HISTORY: Pneumonia. FINDINGS: Diffuse nonspecific increased interstitial densities are noted, stable. There is improved aeration wi thin the lateral aspect of the mid right lung zone and in the right lung base. Stable right vascular catheter. Stable prominence of cardiac silhouette. No lobar consolidation or alveolar edema. IMPRESSION: Diffuse nonspecific interstitial prominence. Improved aeration in the mid right lung zone and right l izzy base. POS: [facility]
--- NOTE | 2017-08-02 11:55 | PRG ---
DATE OF SERVICE: 08/02/2017 PRIMARY CARE PHYSICIAN: Sid Rae M.D. SUBJECTIVE: The patient is feeling some better. He denies chest pain. He continues to have cough a nd shortness of breath. He tolerated the procedures last night and is now more agreeable to treatmen t and most therapies. Denied his buspirone this morning, but otherwise is taking all of his medicati ons. OBJECTIVE: VITAL SIGNS: Temperature 98.0, pulse of 75, respirations 22-23, blood pressure 103/66 on dobutamine and dopamine, and pulse ox is 99%. GENERAL: He is awake and alert. He is in no acute distress in bed. HEENT: Mucosa is moist. NECK: Supple. HEART: Regular rate and rhythm with ectopy with a 2/6 systolic ejection murmur. LUNGS: With rhonchi throughout, worse on the left side with expiratory wheezes. ABDOMEN: Soft. EXTREMITIES: With no edema. LABORATORY DATA: White blood cell count 8.1 thousand, hemoglobin and hematocrit 11.4 and 35.5 with m acrocytic indices, and platelets of 226. ABG last night revealed a pH of 7.34, pCO2 of 44, pO2 of 65 . Sodium 140, potassium low at 2.9, chloride 101, CO2 of 32, BUN and creatinine 10 and 1.09 with a G FR of 82. Serum glucose of 128. AST and ALT were normal. Albumin of 3.3. Chest x-ray today is pen ding. ASSESSMENT AND PLAN: 1. This is a 67-year-old gentleman with a history of chronic obstructive pulmonary disease and end-s tage heart disease with severely depressed left ventricular ejection fraction, now with bilateral pne umonia. We will continue antibiotics, albuterol, oxygen therapy and steroids. 2. Severe cardiomyopathy with nonsustained ventricular tachycardia, on amiodarone. I appreciate Dr. Wasserman's evaluation and assistance. I will continue ICU monitoring at this time. 3. Depression and anxiety. We will continue his medications and monitor closely. 4. Noncompliance. I discussed with patient and family the importance of his therapy.
[2017-08-02] MEDS: DOPamine 400 MG/D5W 250 ML 250 ML IVPB SCH (14:09)
--- NOTE | 2017-08-02 19:15 | CON ---
DATE OF CONSULTATION: 08/02/2017 HISTORY OF PRESENT ILLNESS: Mr. Humberto Sandhu is a 67-year-old gentleman who sees Dr. Rae, in [facility], who presented yesterday with chest pain and shortness of breath and grossly purulent sp utum green to yellow. No fever or chills. He carries the diagnoses of COPD, CHF and hypertension, but he states that the pain was left-sided wi th pressure without any nausea or vomiting. X-ray yesterday shows a right-sided infiltrate and cardi omegaly. He was seen by cardiology. Previous history of asthma and COPD, recent TB. PAST MEDICAL HISTORY: CHF, COPD, hypertension and high cholesterol. PAST SURGICAL HISTORY: A cyst in the hand. Multiple eyeshots in the right eye, he is legally blind in the right eye. MEDICINES: Prednisone 40, potassium 20, Protonix 40, Naprosyn, Neurontin 300, Lasix 40, Flovent 50, Lexapro 10, digoxin 0.25, Durezol eye drops and Coreg 12.5. His hospital here in June with diagnosis of chronic systolic failure and renal failure. He was discharged on a tapering dose of prednisone. at that time stated that his EF was measur ed at 15% to 20%. His AICD was planned, but apparently he declined. ALLERGIES: None. REVIEW OF SYSTEMS: Ten-point negative. PHYSICAL EXAMINATION: VITAL SIGNS: O2 sat is 95%, blood pressure 170/70, and respirations 18. CHEST: Reveal bilateral rhonchi, crackles. CARDIAC: S3. No gallop. ABDOMEN: Soft. LABORATORY DATA: White count 8,000, hemoglobin and hematocrit 11 and 35, platelet count is 226. PO2 was 65, pCO2 40, pH 7.37. Electrolytes are normal. Potassium 2.9. BUN and creatinine are normal. Human immunodeficiency virus was done, it was negative. IMPRESSION: 1. Chest pain, respiratory failure and congestive heart failure. 2. Right-sided pneumonia. 3. Chronic obstructive pulmonary disease. 4. Hypertension. 5. High cholesterol. 6. Legally blind, right eye. PLAN: Await input from cardiology. From a pulmonary standpoint of view, empiric antibiotics, neb treatments and steroids. We will follo w while in the ICU. He was started on Dobutrex, probably somewhere down the line, he is probably going to need an AICD as per the previous note, already on prednisone. Neb treatments. We will follow. Please note this is a consultation note, 70-minutes of my time of which 50% was spen t in direct patient care at the bedside.
[2017-08-02] MEDS: cefTRIAXone\\ROCEPHIN 1 GM, Syringe 0.4 ML in Sterile Water 9.6 ML SLOW IVP SCH (20:50)
[2017-08-02] MEDS: Doxycycline 100 MG CAP PO SCH (21:04)
[2017-08-02] MEDS: traZODone HCl 50 MG TAB PO SCH ×2 (21:05→21:13)
[2017-08-03] MEDS: Amiodarone HCl 450 MG, Admixture Fee 1 EACH in Dextrose 5% in Water 250 ML IVPB SCH ×2 (05:42→19:46)
[2017-08-03] MEDS: DOPamine 400 MG/D5W 250 ML 250 ML IVPB SCH (05:42)
[2017-08-03 05:58] LABS: #Lymphocytes 0.7 thou/uL (1.20-3.40); #Monocytes 0.7 thou/uL (0.11-0.59); %Basophils 0.1 % (0.0-1.0); %Eosinophils 0.2 % (0.0-10.0); %Lymphocytes 7.7 % (21.0-51.0); %Monocytes 7.6 % (0.0-10.0); %Neutrophils 84.3 % (42.0-75.0); Hemoglobin 11.4 g/dL (14.0-18.0); Mean Corpuscular HGB CONC 32.2 g/dL (32.0-36.0); Mean Corpuscular Hemoglobin 32.1 pg (27.0-31.0); Mean Corpuscular Volume 99.6 fl (80.0-94.0); Mean Platelet Volume 7.3 fL (7.4-10.4); Platelet Count 225 thou/uL (130-400); RBC Distribution Width 12.4 % (11.5-14.5); Red Blood Cell (RBC) Count 3.55 mill/uL (4.70-6.10); White Blood Cell (WBC) Count 9.5 thou/uL (4.8-10.8)
[2017-08-03 06:15] LABS: ALT (SGPT) 20 U/L (8-55); AST (SGOT) 21 U/L (5-34); Albumin 3.3 g/dL (3.4-4.8); Alkaline Phosphatase 87 U/L (40-150); Anion Gap 11 mmol/L (10-20); BUN (Urea Nitrogen) 9 mg/dL (8.4-25.7); Bilirubin, Total 0.8 mg/dL (0.2-1.2); Calc. Creatinine Clearance 66 mL/min (70-130); Calcium 9.1 mg/dL (7.8-10.44); Carbon Dioxide 31 mmol/L (23-31); Chloride 102 mmol/L (98-107); Estimated GFR-MDRD 77; Globulin 3.1 g/dL (2.4-3.5); Glucose 112 mg/dL (80-115); Potassium 3.5 mmol/L (3.5-5.1); Protein, Total 6.4 g/dL (5.8-8.1); Sodium 140 mmol/L (136-145)
[2017-08-03] MEDS: DOBUTamine 500 mg/250 ml 500 MG in Premix Bag 1 BAG IVPB SCH ×2 (07:21→23:52)
[2017-08-03] MEDS: Timolol 0.5% Ophth Soln 5 ml Bottle EA EYE SCH (08:04)
[2017-08-03] MEDS: Brimonidine Tartrate 0.2% Ophth Soln 5 ml Bottle EA EYE SCH (08:04)
[2017-08-03] MEDS: Furosemide 40 MG TAB PO SCH (08:13)
[2017-08-03] MEDS: predniSONE 20 MG TAB PO SCH (08:13)
[2017-08-03] MEDS: Escitalopram Oxalate 10 mg Tablet PO SCH (08:13)
[2017-08-03] MEDS: Gabapentin 300 MG CAP PO SCH ×2 (08:13→20:48)
[2017-08-03] MEDS: Digoxin 0.125 MG TAB PO SCH (08:13)
[2017-08-03] MEDS: Ferrous Sulfate 325 MG TAB PO SCH (08:13)
[2017-08-03] MEDS: Doxycycline 100 MG CAP PO SCH ×2 (08:14→20:48)
[2017-08-03] MEDS: busPIRone HCl 10 MG TAB PO SCH (08:14)
[2017-08-03] MEDS: DIFLUPREDNATE EA EYE SCH (08:14)
[2017-08-03] MEDS: BOT EA EYE SCH (08:14)
[2017-08-03] MEDS ORDERED: Morphine 4 MG/ML VIAL SLOW IVP PRN (08:50)
[2017-08-03] MEDS: Potassium Chloride 40 MEQ in Premix Bag 1 BAG IVPB PRN (10:18)
--- NOTE | 2017-08-03 17:28 | CON ---
DATE: 08/03/2017 ELECTROPHYSIOLOGY CONSULTATION REFERRING PHYSICIAN: Waldemar Wasserman M.D. I am seeing Mr. Humberto Sandhu at our [facility] ICU as an electrophysiology institutional nutrition consultant. His p roblems are: 1. Nonsustained ventricular tachycardia, now suppressed with amiodarone. 2. Episodes of bradycardia on amiodarone and Coreg, along with hypotension requiring dopamine and do butamine administration. 3. Chronic systolic congestive heart failure with ischemic cardiomyopathy. A. History of multiple catheterizations in the past and coronary artery disease as noted. B. Chronic history of low LVEF with prior recommendations of ICD implant, which he refused at that t alanis. C. Prior history of LifeVest use which was noncompliant with. 4. History of chronic obstructive pulmonary disease. 5. Remote history of drug use with cocaine, opioid dependency. No recent use according to the patie nt. 6. Stage III chronic kidney disease. 7. History of glaucoma and right eye blindness. 8. History of depression and anxiety. ALLERGIES: NIACIN. MEDICATIONS AT HOME: Included potassium chloride, carvedilol 12.5 twice a day, gabapentin, fluticaso ne, furosemide, Durezol, brimonidine, digoxin 125 mcg daily, Naprosyn, Protonix, Lexapro, Zithromax, prednisone, hydrocodone, Tylenol, and [place] daily p.r.n. SUBJECTIVE: Mr. Sandhu came to the ER with symptoms of chest tightness sensation and progressive dysp ankit. He has visited the ER several times over the last week, but mostly was treated as an outpatient and sent home. He at this time was found to have an abnormal rhythm, nonsustained ventricular arrhy thmia runs were noted. He had no stroke-like symptoms, no neurological deficits, no fever, chills or cough. No PND or orthopnea. At this time, rest of 12 point review of systems is noncontributory. OBJECTIVE DATA: VITAL SIGNS: Blood pressure 114/85, heart rate 95, respirations 20. Patient is afebrile. GENERAL: He is alert and oriented man in no apparent distress. NECK: Supple. Jugular veins are slightly distended. CHEST: Coarse with some wheezing. CARDIAC: Heart sounds are regular to rate and rhythm. I cannot hear a murmur or gallop. ABDOMEN: Benign. Bowel sounds are positive. EXTREMITIES: Lower extremities without edema, clubbing or cyanosis. Pulses are adequate. NEUROLOGIC: Patient is nonfocal. MUSCULOSKELETAL: No joint swelling or deformities. SKIN: Without rash. DATABASE AND LABORATORY DATA: The EKG is reviewed revealing sinus rhythm with rate of 108 beats per minute, frequent PVCs are noted, nonspecific intraventricular conduction delay 120 milliseconds are s een. Subsequent EKG is similar with more sinus rhythm, bigeminal PVCs are seen. The third EKG on reveals a sinus rhythm with Q-waves anteriorly, QRS duration of 102 milliseconds, QTC is 445 . Telemetry strips do reveal frequent PVCs and nonsustained ventricular arrhythmia runs are seen as well. LABORATORY DATA: White count of 9.5, hemoglobin 11.4, platelet count is 225, pH 7.34, pCO2 44, pO2 6 5. Sodium 140, potassium 3.5, BUN is 9, creatinine is 1.15, 2120. Chest x-rays from 08/02/2017 reveals diffuse nonspecific interstitial predominant variation of mid ri ght lung zone. ASSESSMENT AND PLAN: Mr. Sandhu is a pleasant 67-year-old man with prior history of congestive heart failure and likely ischemic cardiomyopathy with prior heart catheterization with history carrying end -stage coronary artery disease and also severe reduced left ventricular systolic function. Now he is admitted with progressive dyspnea and nonsustained ventricular arrhythmias and was loaded on amiodar one. He had only borderline troponin changes which could be in keeping with cardiomyopathy process. He has nonsustained acute ischemia. His fluid status is improving with continued diuresis. He is c urrently stabilizing on the initiated amiodarone, but still requiring some dobutamine and dopamine fo r support. Again, discussed the option of pacemaker defibrillator. I will review his elevated ejection fraction , but this gentleman has long-term history of cardiomyopathy and indeed has been recommended to have an ICD implantation in the past. He is more amenable to the idea whereas previously refused. Risks and benefits of the procedure were detailed. I have concerns about infections hence his poor social situation and mentioned pneumothorax which also could be an issue with his COPD, lead dislodgement, a nd appropriate shocks are all detailed. Hopefully he will be able to come off amiodarone and eventua lly has been ideal medication for him. Standard heart failure therapy to continue as before. Hopefully, we will be able to schedule him in near date.
--- NOTE | 2017-08-03 17:39 | PRG ---
DATE OF SERVICE: 08/03/2017 SUBJECTIVE: This morning, he is better. PHYSICAL EXAMINATION: VITAL SIGNS: Pulse 90, blood pressure 130/84, sats are 99%, respirations 24. His I's and O's have b een 3628 in and 4125 out. CHEST: Bilateral crackles. Expiration is prolonged. Minimal wheezing. CARDIAC: S3 gallop. ABDOMEN: Soft. LABORATORY DATA: White count 9000, H&H 11 and 33, platelet count normal. Electrolytes are normal. IMPRESSION: 1. Respiratory failure. 2. Congestive heart failure. 3. Chronic obstructive pulmonary disease. PLAN: 1. Continue Dobutrex. 2. Continue antibiotics. 3. Await input from Cardiology. 4. Will follow.
--- NOTE | 2017-08-03 17:44 | PRG ---
DATE OF SERVICE: 08/03/2017 HISTORY OF PRESENT ILLNESS: The patient remains stable on pressors and amiodarone drip, awaiting pos sible AICD placement, n.p.o. at midnight, echo pending. Dr. Tavares has been consulted. Cardiology and Critical Care following. The patient remained stable on nasal cannula. The patient states he has e ye irritation to his right eye. He has not been able to start all 3 of his eyedrops. He is currentl y missing reportedly Durezol. The patient had a followup with Dr. Davila later this week. We will contact his office for recommendations regarding patient's vision if any substitution needed to be ma de. No other interval concerns per nursing staff. PHYSICAL EXAMINATION: VITAL SIGNS: Heart rate of 86, blood pressure of 113/83, oxygen saturation 100% on 2 liters nasal ca nnula. GENERAL: The patient is alert, oriented, no acute distress. HEENT: Normocephalic, atraumatic. Right sclera injected with opacification of right pupil. Extraoc ular movements intact otherwise. Oral mucosa is moist. Nasal cannula in place. NECK: Supple. HEART: Regular rate and rhythm at time of exam. LUNGS: Coarse breath sounds bilaterally, end expiratory wheezes occasionally. ABDOMEN: Soft, nontender, positive bowel sounds throughout. Right jugular central line in place wit hout exudates or erythema. ABDOMEN: Soft, nontender, positive bowel sounds throughout. EXTREMITIES: Lower extremities without cyanosis or edema. LABORATORY DATA: White blood cell count of 9.5, hemoglobin of 11.4, platelet count of 225, neutrophi ls of 84%, bands 8. Potassium of 3.5, sodium of 140, chloride of 102, CO2 of 31, BUN of 9, creatinin e of 1.1, glucose of 112, calcium of 9.1, total bilirubin of 0.8, AST of 21, ALT of 20, serum albumin of 3.3. HIV antibody is negative. Sputum culture with gram positive. Blood cultures with no growt h to date of central venous peripheral line. ASSESSMENT AND PLAN: Right lobar pneumonia, community acquired; acute respiratory failure on oxygen via nasal cannula, systolic heart failure, severe chronic obstructive pulmonary disease, history of d rug abuse, noncompliance, nonsustained ventricular tachycardia. PLAN: Continue doxycycline and Rocephin for pneumonia on oxygen support for COPD with breathing nisa tments per Pulmonology, scheduled patient on steroids regarding his COPD treatment. The patient has been recommended AICD placement over the last 1-2 years, has been noncompliant and desired not to pro ceed with procedure. He states he is ready to do so now as itself is deteriorating, history of drug abuse including cocaine is recently several months ago. Patient states he has been methamphetamine f ree for the last year and a half, thus partaking cannabinoids and had prior pain contract with myself , which he was terminated secondary to drug abuse and he has received several doses of narcotics from the Emergency Department. At this point in time, we will cover his pain profile with morphine 2 mg q.4 hours. The patient is not known to abuse narcotics in the past. Regarding nonsustained ventricu lar tachycardia, the patient has been controlled on amiodarone drip to help support patient's systoli c heart failure. He has been controlled on dobutamine and management per Cardiology and Critical Car e/Pulmonology. Nursing staff requesting something for constipation, glycerin suppositories as riri lockhart is currently n.p.o. this a.m. p.r.n., may add orals as patient reinitiates diet. Awaiting possible AICD placement at this point in time. Continue the antibiotics and steroids.
[2017-08-03] MEDS: Mometasone/Formoterol 120 PUFF INHALER INH SCH (19:32)
[2017-08-03] MEDS: cefTRIAXone\\ROCEPHIN 1 GM, Syringe 0.4 ML in Sterile Water 9.6 ML SLOW IVP SCH (20:48)
[2017-08-04] MEDS: DOPamine 400 MG/D5W 250 ML 250 ML IVPB SCH (04:24)
[2017-08-04 05:30] LABS: #Lymphocytes 0.9 thou/uL (1.20-3.40); #Monocytes 1.1 thou/uL (0.11-0.59); #Neutrophils 7.9 thou/uL (1.40-6.50); %Basophils 0.1 % (0.0-1.0); %Eosinophils 0.3 % (0.0-10.0); %Lymphocytes 8.9 % (21.0-51.0); %Monocytes 10.6 % (0.0-10.0); %Neutrophils 80.1 % (42.0-75.0); Hemoglobin 10.9 g/dL (14.0-18.0); Mean Corpuscular HGB CONC 32.8 g/dL (32.0-36.0); Mean Corpuscular Hemoglobin 32.9 pg (27.0-31.0); Mean Platelet Volume 8.1 fL (7.4-10.4); Platelet Count 243 thou/uL (130-400); RBC Distribution Width 12.5 % (11.5-14.5); Red Blood Cell (RBC) Count 3.32 mill/uL (4.70-6.10); White Blood Cell (WBC) Count 9.9 thou/uL (4.8-10.8)
[2017-08-04 05:47] LABS: ALT (SGPT) 17 U/L (8-55); AST (SGOT) 16 U/L (5-34); Albumin 3.2 g/dL (3.4-4.8); Alkaline Phosphatase 80 U/L (40-150); Anion Gap 9 mmol/L (10-20); BUN (Urea Nitrogen) 13 mg/dL (8.4-25.7); Bilirubin, Total 0.8 mg/dL (0.2-1.2); Calc. Creatinine Clearance 68 mL/min (70-130); Calcium 9.1 mg/dL (7.8-10.44); Carbon Dioxide 33 mmol/L (23-31); Chloride 100 mmol/L (98-107); Estimated GFR-MDRD 79; Glucose 96 mg/dL (80-115); Potassium 3.9 mmol/L (3.5-5.1); Protein, Total 6.2 g/dL (5.8-8.1); Sodium 138 mmol/L (136-145)
[2017-08-04] MEDS: Amiodarone HCl 450 MG, Admixture Fee 1 EACH in Dextrose 5% in Water 250 ML IVPB SCH (09:01)
[2017-08-04] MEDS: Brimonidine Tartrate 0.2% Ophth Soln 5 ml Bottle EA EYE SCH (09:10)
[2017-08-04] MEDS: Timolol 0.5% Ophth Soln 5 ml Bottle EA EYE SCH (09:10)
[2017-08-04] MEDS: Doxycycline 100 MG CAP PO SCH ×2 (09:11→20:49)
[2017-08-04] MEDS: Furosemide 40 MG TAB PO SCH (09:11)
[2017-08-04] MEDS: Escitalopram Oxalate 10 mg Tablet PO SCH (09:11)
[2017-08-04] MEDS: Digoxin 0.125 MG TAB PO SCH (09:11)
[2017-08-04] MEDS: Ferrous Sulfate 325 MG TAB PO SCH (09:11)
[2017-08-04] MEDS: Gabapentin 300 MG CAP PO SCH ×2 (09:11→20:49)
[2017-08-04] MEDS: BOT EA EYE SCH (09:12)
[2017-08-04] MEDS: DIFLUPREDNATE EA EYE SCH (09:12)
[2017-08-04] MEDS: predniSONE 20 MG TAB PO SCH (09:13)
[2017-08-04] MEDS ORDERED: predniSONE 20 MG TAB PO SCH (09:15)
[2017-08-04] MEDS ORDERED: Amiodarone HCl 450 MG, Admixture Fee 1 EACH in Dextrose 5% in Water 250 ML IVPB SCH (10:26)
[2017-08-04] MEDS ORDERED: Amiodarone 200 MG TAB PO SCH (10:30)
[2017-08-04] MEDS ORDERED: PROPOFOL 200 MG/20 ML VIAL ONE (11:16)
[2017-08-04] MEDS ORDERED: PHENYLEPHRINE-NS 100 MCG/ML 10 ML SYRINGE ONE ×2 (11:16→14:17)
[2017-08-04] MEDS ORDERED: Ondansetron HCl/PF 4 MG/2 ML Vial ONE ×2 (11:16→14:17)
--- NOTE | 2017-08-04 11:59 | PRG ---
DATE OF SERVICE: 08/04/2017 SUBJECTIVE: This morning, awake, alert, responsive. No pain or shortness of breath, but he is still coughing. OBJECTIVE: VITAL SIGNS: Blood pressure 125/87, sats are 99 on 2 liters, respirations 18, pulse 80. I's and O's are 2148 in and 2795 out. CHEST: Reveals bilateral crackles. CARDIAC: Normal S1, S2. No gallops. ABDOMEN: Soft. No masses. LABORATORY DATA: White count 9000, H&H is 10 and 30, platelet count normal. Electrolytes are normal . IMPRESSION: Congestive heart failure, cardiomyopathy, supraventricular tachycardia, chronic obstruct brady pulmonary disease. PLAN: He is going to have an AICD done today. Thereafter, will start weaning some of his medication including his antibiotics. Will follow.
[2017-08-04] MEDS ORDERED: CEFAZOLIN/Water 2 GM/20 ML SYRINGE ONE (13:57)
[2017-08-04] MEDS ORDERED: CEFAZOLIN 1 GM VIAL ONE (13:57)
[2017-08-04] MEDS ORDERED: Gentamicin 80 MG/2 ML VIAL ONE (13:57)
[2017-08-04] MEDS ORDERED: Midazolam HCl 2 mg/2 ml Vial ONE (14:16)
[2017-08-04] MEDS ORDERED: Ketamine 50 MG/ML VIAL ONE (14:16)
[2017-08-04] MEDS ORDERED: Promethazine HCl 25 MG/ML VIAL ONE (14:17)
[2017-08-04] MEDS ORDERED: Propofol 1,000 MG/100 ML VIAL IV ONE (14:17)
[2017-08-04] MEDS: Mometasone/Formoterol 120 PUFF INHALER INH SCH ×2 (16:11→20:39)
[2017-08-04] MEDS: Cephalexin 250 MG CAP PO SCH ×2 (17:35→23:16)
[2017-08-04] MEDS: cefTRIAXone\\ROCEPHIN 1 GM, Syringe 0.4 ML in Sterile Water 9.6 ML SLOW IVP SCH (20:49)
[2017-08-04] MEDS: Amiodarone 200 MG TAB PO SCH (21:03)
--- NOTE | 2017-08-04 21:38 | PRG ---
DATE OF SERVICE: 08/04/2017 Time of exam prior to being taken back to microbiology lab technician. SUBJECTIVE: The patient states he feels comfortable with nasal cannula since been titrated off amiod arone and dobutamine drips and has remained stable per nursing report. Patient states he is willing to go through with the procedure. He has no acute complaints or questions. OBJECTIVE: VITAL SIGNS: Temperature 97.5, pulse of 62, respiratory rate of 16, oxygen saturation of 96% on 2 li ters nasal cannula, blood pressure 106/69. HEENT: Head is normocephalic, atraumatic. Extraocular movements are intact. Pupil opacified right with some inflamed sclerae. Oral mucosa is moist. Nasal cannula in place. NECK: Supple. Right jugular central line placed. HEART: Regular rate and rhythm at time of exam. LUNGS: With coarse breath sounds bilaterally. No active wheezes. ABDOMEN: Soft, nontender, positive bowel sounds throughout. EXTREMITIES: Lower extremities without cyanosis or edema. NEUROLOGIC: The patient is alert and oriented x3, no focal deficits. Speech is normal. LABORATORY DATA: White blood cell count of 9.9, hemoglobin of 10.9 preoperatively, platelets of 243. Sodium 138, potassium of 3.9, chloride of 100, BUN of 13, CO2 of 33, glucose of 79, calcium of 9.1, AST of 16, ALT of 17, albumin of 3.2, blood cultures x2 negative at 48 hours, Normal respiratory fl ora on sputum culture. ASSESSMENT AND PLAN: Community-acquired pneumonia. Continuing antibiotics. Patient has been titrat ed down on steroids, being followed by Pulmonology defaulting their recommendations. Nonsustained ve ntricular tachycardia with severely reduced ejection fraction. Repeat echo showed no blood clots, ej ection fraction 25-29%, likely placement of AICD with Electrophysiology and Cardiology today. The pa chantal's hypokalemia has been resolved. The patient's hypertension has been much improved off dobutam ine drip as above. The patient has continued on his cardiac medications. We will follow up on posto perative period once patient returns to PACU.
[2017-08-05] MEDS ORDERED: Acetaminophen/Codeine 30-300mg Tablet PO PRN (02:30)
[2017-08-05] MEDS: Cephalexin 250 MG CAP PO SCH ×3 (05:11→17:46)
[2017-08-05 05:51] LABS: Anion Gap 10 mmol/L (10-20); BUN (Urea Nitrogen) 17 mg/dL (8.4-25.7); Calc. Creatinine Clearance 60 mL/min (70-130); Calcium 8.9 mg/dL (7.8-10.44); Carbon Dioxide 32 mmol/L (23-31); Chloride 101 mmol/L (98-107); Estimated GFR-MDRD 67; Glucose 86 mg/dL (80-115); Potassium 4.3 mmol/L (3.5-5.1); Sodium 139 mmol/L (136-145)
[2017-08-05] MEDS ORDERED: CEFAZOLIN/Water 2 GM/20 ML SYRINGE ONE (06:45)
[2017-08-05] MEDS: Mometasone/Formoterol 120 PUFF INHALER INH SCH ×2 (07:04→18:15)
[2017-08-05] MEDS: Doxycycline 100 MG CAP PO SCH ×2 (10:07→20:33)
[2017-08-05] MEDS: Amiodarone 200 MG TAB PO SCH ×2 (10:07→20:33)
[2017-08-05] MEDS: Ferrous Sulfate 325 MG TAB PO SCH (10:07)
[2017-08-05] MEDS: Gabapentin 300 MG CAP PO SCH ×2 (10:07→20:33)
[2017-08-05] MEDS: predniSONE 20 MG TAB PO SCH (10:08)
[2017-08-05] MEDS: Digoxin 0.125 MG TAB PO SCH (10:09)
[2017-08-05] MEDS: Escitalopram Oxalate 10 mg Tablet PO SCH (10:09)
[2017-08-05] MEDS: Acetaminophen/Codeine 30-300mg Tablet PO PRN ×2 (10:09→15:35)
[2017-08-05] MEDS: Furosemide 40 MG TAB PO SCH (10:09)
[2017-08-05] MEDS: Timolol 0.5% Ophth Soln 5 ml Bottle EA EYE SCH (10:15)
[2017-08-05] MEDS: DIFLUPREDNATE EA EYE SCH (10:17)
[2017-08-05] MEDS: Brimonidine Tartrate 0.2% Ophth Soln 5 ml Bottle EA EYE SCH (10:17)
[2017-08-05] MEDS: BOT EA EYE SCH (10:17)
--- NOTE | 2017-08-05 10:53 | PRG ---
DATE OF SERVICE: 08/05/2017 REFERRING PHYSICIAN: Dr. Wasserman SUBJECTIVE: Mr. Sandhu is doing well one day after his ICD implant. OBJECTIVE DATA: VITAL SIGNS: The blood pressure is 107/69, heart rate 60, respirations 20, temperature 97.9 degrees Fahrenheit. GENERAL: Alert and oriented man in no apparent distress. NECK: Supple. Jugular veins not distended. CHEST: Coarse, no crackles. CARDIOVASCULAR: Heart sounds are regular to rate and rhythm. No murmur or gallop. ABDOMEN: Benign. Bowel sounds positive. EXTREMITIES: Lower extremities without edema, clubbing or cyanosis. Left precordial ICD insertion site is without reaction. DATABASE: Telemetry strips reveals sinus rhythm, AV conduction. No significant ventricular arrhythmias. The chest x-ray this morning reveals no pneumothorax, questionable RV lead position is seen. Interrogation of the ICD reveals no capture in the RV lead. ASSESSMENT AND PLAN: Mr. Sandhu is a 67-year-old man with prior history of congestive heart failure, chronic ischemic cardiomyopathy. This gentleman underwent dual-chamber ICD implantation yesterday without issues, this morning, though, the RV appears to be dislodged. No other complications noted. Our plan is to reposition the RV lead tomorrow, hence he already ate this am. Risks and benefits detailed. MTDD
--- NOTE | 2017-08-05 11:13 | PRG ---
DATE OF SERVICE: 08/05/2017 He is better. He had an AICD placed in yesterday. Less short of breath. PHYSICAL EXAMINATION: VITAL SIGNS: Blood pressure 107/69, sats 98% on 2 liters, temperature 97. His x-ray shows a small right-sided effusion. He is afebrile. CHEST: Chest revealed decreased breath sounds, no wheezing. CARDIAC: Normal S1-S2. No gallops. ABDOMEN: Soft. No masses. IMPRESSION: 1. Congestive heart failure. 2. Right pleural effusion. 3. Possibly pneumonia. PLAN: He is on doxycycline, low dose prednisone. Disposition as per Cardiology. Home in the next d ay or two.
--- NOTE | 2017-08-05 12:07 | RAD ---
CHEST ONE VIEW: History: CHF. Comparison: 08-01-17 FINDINGS: Heart size upper limits of normal. Right basilar airspace opacity is present. Improving right upper l obe airspace opacity. Right IJ central venous catheter tip near the atrial junction. There is a AICD/defibrillator with leads projecting over the right atrium and right ventricle. This i s new. IMPRESSION: Interval placement of AICD/pacer without complication. POS: [facility]
[2017-08-05] MEDS ORDERED: Albuterol Sulfate 1.25 MG/3 ML NEB NEB SCH (17:00)
[2017-08-05] MEDS: cefTRIAXone\\ROCEPHIN 1 GM, Syringe 0.4 ML in Sterile Water 9.6 ML SLOW IVP SCH (20:33)
[2017-08-05] MEDS: Morphine 4 MG/ML Carpuject SLOW IVP PRN (20:34)
--- NOTE | 2017-08-05 23:21 | PRG ---
DATE OF SERVICE: 08/05/2017 HISTORY OF PRESENT ILLNESS: The patient successfully underwent placement of AICD, however, on interrogation, possible loose lead was found. The patient reports that he will likely go back for reattachment or replacement to our OR likely tomorrow. He has no acute complaints other than some chest wall discomfort postoperatively. PHYSICAL EXAMINATION: VITAL SIGNS: Temperature of 98.2, pulse of 67, respiratory rate of 20, oxygen saturation 97% on 2 liters nasal cannula, blood pressure of 109/68. GENERAL: The patient is alert and oriented, in no acute distress. HEENT: Head is normocephalic, atraumatic. Extraocular movements are intact. Right pupil is opacified with erythematous sclera. A nasal cannula is in place. HEART: Regular rate and rhythm at the time of the exam. LUNGS: Bilateral inspiratory wheezes, expiratory wheezes on auscultation to lungs. ABDOMEN: Soft, nontender, positive bowel sounds throughout. EXTREMITIES: Lower extremities without cyanosis or edema. NEUROLOGIC: The patient is alert and oriented x3, no focal deficits. Speech is normal. ASSESSMENT AND PLAN: 1. Community-acquired pneumonia, continued on antibiotics, breathing treatments , and steroids. Pulmonology is following. 2. Nonsustained ventricular tachycardia and end-stage systolic heart failure, AICD placed, possible need to revise if unable to be interrogated per Cardiology. We will follow their recommendations. MTDD
[2017-08-06] MEDS: Cephalexin 250 MG CAP PO SCH ×5 (01:13→23:43)
[2017-08-06 06:42] LABS: #Lymphocytes 1.2 thou/uL (1.20-3.40); #Neutrophils 7.2 thou/uL (1.40-6.50); %Basophils 0.3 % (0.0-1.0); %Eosinophils 0.4 % (0.0-10.0); %Lymphocytes 12.3 % (21.0-51.0); %Monocytes 10.7 % (0.0-10.0); %Neutrophils 76.3 % (42.0-75.0); Hemoglobin 12.1 g/dL (14.0-18.0); Mean Corpuscular HGB CONC 31.7 g/dL (32.0-36.0); Mean Corpuscular Hemoglobin 32.5 pg (27.0-31.0); Mean Platelet Volume 8.3 fL (7.4-10.4); Platelet Count 288 thou/uL (130-400); RBC Distribution Width 12.6 % (11.5-14.5); Red Blood Cell (RBC) Count 3.71 mill/uL (4.70-6.10); White Blood Cell (WBC) Count 9.4 thou/uL (4.8-10.8)
[2017-08-06 06:59] LABS: ALT (SGPT) 12 U/L (8-55); AST (SGOT) 16 U/L (5-34); Albumin 3.3 g/dL (3.4-4.8); Alkaline Phosphatase 81 U/L (40-150); Anion Gap 16 mmol/L (10-20); BUN (Urea Nitrogen) 17 mg/dL (8.4-25.7); Bilirubin, Total 0.6 mg/dL (0.2-1.2); Calc. Creatinine Clearance 54 mL/min (70-130); Calcium 9.4 mg/dL (7.8-10.44); Carbon Dioxide 29 mmol/L (23-31); Chloride 101 mmol/L (98-107); Estimated GFR-MDRD 60; Globulin 3.3 g/dL (2.4-3.5); Glucose 77 mg/dL (80-115); Protein, Total 6.6 g/dL (5.8-8.1); Sodium 142 mmol/L (136-145)
[2017-08-06] MEDS ORDERED: CEFAZOLIN/Water 2 GM/20 ML SYRINGE ONE (07:24)
[2017-08-06] MEDS ORDERED: Fentanyl 100 MCG/2 ML VIAL ONE (07:25)
[2017-08-06] MEDS: Mometasone/Formoterol 120 PUFF INHALER INH SCH ×2 (08:11→20:02)
--- NOTE | 2017-08-06 08:38 | PRG ---
DATE OF SERVICE: 08/06/2017 HISTORY OF PRESENT ILLNESS: Following interrogation right ventricular lead was dislodged following A ICD placement. The patient is n.p.o. awaiting repositioning of lead later today with Cardiology and Electrophysiology. On telemetry review the patient had 19 beats of ventricular tachycardia just afte r midnight. The patient states he was sleeping, had no symptoms. He has no new concerns this brittni bass Reports he is breathing more easily and feels he has more energy at this point in time. PHYSICAL EXAMINATION: VITAL SIGNS: Temperature of 98.2, pulse of 57, respiratory rate of 18, oxygen saturation 98% on 2 li ters nasal cannula, blood pressure 107/68. LABORATORY DATA: White blood cell count 9.4, hemoglobin 12.1, platelet count of 288, creatinine slig ht elevation to 1.4, sodium 142, potassium 4.0, CO2 of 29, glucose of 77, calcium 9.4, AST of 16, ALT of 12. GENERAL: The patient is alert and oriented, in no acute distress. HEENT: Head is normocephalic, atraumatic. Extraocular movements are intact. Right pupil opacified with sclerae erythematous and inflamed. NECK: Supple. Line in place. Nasal cannula in place. Oral mucosa is moist. HEART: Regular rate and rhythm at time of exam. LUNGS: Bilateral lower lung bunn with end-expiratory wheezes, no rhonchi or rales. ABDOMEN: Soft, nontender, positive bowel sounds throughout. EXTREMITIES: Lower extremities without cyanosis or edema. NEUROLOGIC: The patient is alert and oriented x3, no focal deficits. Speech is normal. ASSESSMENT AND PLAN: 1. Right lobar pneumonia. Patient on oral doxycycline, steroids and breathing treatments. He mary ellen nues to wheeze. He has been also placed on Dulera while inpatient. Pulmonology has been following f rom the ICU. The patient is still requiring low dose of oxygen. We will likely wean following proce dure. 2. Ventricular tachycardia. Repositioning of AICD lead placement today per Cardiology. Disposition and recommendations per Cardiology. Currently on Keflex perioperative period. Maintaine d on oral amiodarone for the time being and digoxin. 3. Systolic congestive heart failure. As above for AICD placement. 4. Chronic obstructive pulmonary disease as above for pneumonia. We will continue to follow.
[2017-08-06] MEDS: predniSONE 20 MG TAB PO SCH (10:07)
[2017-08-06] MEDS: Ferrous Sulfate 325 MG TAB PO SCH (10:07)
[2017-08-06] MEDS: Escitalopram Oxalate 10 mg Tablet PO SCH (10:07)
[2017-08-06] MEDS: Doxycycline 100 MG CAP PO SCH ×2 (10:07→20:59)
[2017-08-06] MEDS: Amiodarone 200 MG TAB PO SCH ×2 (10:07→20:59)
[2017-08-06] MEDS: Gabapentin 300 MG CAP PO SCH ×2 (10:07→20:59)
[2017-08-06] MEDS: Furosemide 40 MG TAB PO SCH (10:08)
[2017-08-06] MEDS: Digoxin 0.125 MG TAB PO SCH (10:08)
[2017-08-06] MEDS: BOT EA EYE SCH (10:09)
[2017-08-06] MEDS: DIFLUPREDNATE EA EYE SCH (10:09)
--- NOTE | 2017-08-06 10:11 | CCL ---
DATE OF PROCEDURE: 08/06/2017 PROCEDURE: ICD lead revision. SURGEON: Dr. Yadiel Tavares REFERRING PHYSICIAN: Dr. Wasserman REASON FOR PROCEDURE: Mr. Sandhu is a 67-year-old man with history of longstanding cardiomyopathy and reduced LVEF who underwent dual-chamber ICD implantation on 08/04/2017, he developed acute RV lead d islodgement. He is here for repositioning of the RV lead. PROCEDURE: The patient received analgesia with Fentanyl and local analgesia with subcutaneous lidoca ine. After prepped and draped the left prepectoral ICD pocket was opened up, the ICD was removed. T he RV lead was also freed up and ------ demonstrated gross dislodgement of the RV lead into the right atrium. Following that, the fixation cord was retracted, the RV lead repositioned to the distal RV upper septum. The testing was performed demonstrating adequate RV testing numbers. The atrial threshold did not require moving, was at 0.5 volts at 0.4 milliseconds, impedance 418, PVs are 1.1, right ventricular threshold 0.75 volts at 0.4 milliseconds, impedance 418, the RVs are 7.4. No new leads were placed at this time. We previously placed 5076-52 right atrium, [id number] RV ana cristina d. Following that, the leads were again reattached to the pacemaker defibrillator. It was again gautam christiana back into the Tyrex antibiotic pouch, antibiotic irrigation was also performed in the pocket. Hem ostasis was obtained and the leads were sutured in place as well. Following that, the device was gautam christiana back into the pocket and was sutured also down to the prepectoral fascia with Ethibond suture. T he wound was closed with 3 layers of Vicryl and Dermabond was applied. Post procedure revealed no ch laura in the cardiac silhouette and adequate lead position. CONCLUSION: 1. Successful repositioning of a dislodged RV pacemaker defibrillator lead. 2. Adequate lead and device function noted post-procedure. 3. No complications appreciated. POS: [facility]
--- NOTE | 2017-08-06 11:24 | PRG ---
DATE OF SERVICE: 08/06/2017 SUBJECTIVE: Mr. Sandhu is doing better this morning, status post AICD. He denies any cough, chest pa in, or shortness of breath. His x-ray yesterday showed pretty much AICD in place, some cardiomegaly and nonspecific right-sided i nfiltrate. OBJECTIVE: CHEST: Reveals decreased breath sounds, no wheezing. CARDIAC: Normal S1, S2. No gallops. ABDOMEN: Soft, no masses. IMPRESSION: 1. Chronic obstructive pulmonary disease. 2. AICD. 3. Congestive heart failure. PLAN: From a Pulmonary standpoint of view, discharge home anytime. Follow with the primary care frederic bowers.
[2017-08-06] MEDS: Morphine 4 MG/ML Carpuject SLOW IVP PRN ×2 (12:38→18:21)
[2017-08-06] MEDS: Ondansetron HCl/PF 4 MG/2 ML Vial SLOW IVP PRN (23:03)
[2017-08-07] MEDS: Cephalexin 250 MG CAP PO SCH ×4 (05:32→17:05)
[2017-08-07] MEDS: Ondansetron HCl/PF 4 MG/2 ML Vial SLOW IVP PRN (05:45)
[2017-08-07] MEDS: Mometasone/Formoterol 120 PUFF INHALER INH SCH ×2 (08:20→19:17)
[2017-08-07] MEDS: BOT EA EYE SCH (08:48)
[2017-08-07] MEDS: DIFLUPREDNATE EA EYE SCH (08:48)
[2017-08-07] MEDS: Ferrous Sulfate 325 MG TAB PO SCH (08:49)
[2017-08-07] MEDS: Furosemide 40 MG TAB PO SCH (08:49)
[2017-08-07] MEDS: Escitalopram Oxalate 10 mg Tablet PO SCH (08:49)
[2017-08-07] MEDS: predniSONE 20 MG TAB PO SCH (08:49)
[2017-08-07] MEDS: Gabapentin 300 MG CAP PO SCH ×2 (08:49→21:13)
[2017-08-07] MEDS: Amiodarone 200 MG TAB PO SCH ×2 (08:49→21:13)
[2017-08-07] MEDS: Digoxin 0.125 MG TAB PO SCH (08:49)
[2017-08-07] MEDS: Doxycycline 100 MG CAP PO SCH ×2 (08:49→21:13)
--- NOTE | 2017-08-07 10:06 | PDOC.CTH ---
<Barbra Horvath - Last Filed: 08/07/17 13:07> Cardiology Progress Note - Subjective EP Progress Note Patient doing well overnight after RV lead repositioned. He reported some nausea with vomiting occurred yesterday but has since resolved. He denies any palpitation, heart racing, or chest pain. - ROS shortness of breath - Objective Vital Signs Temp Pulse Resp BP Pulse Ox 08/07/17 08:20 71 20 96 08/07/17 08:00 98.2 F 68 17 107/68 94 L 08/07/17 07:54 96 08/07/17 07:50 71 20 96 08/07/17 04:00 98.1 F 73 18 111/60 97 Weight 167 lb 08/06/17 08/07/17 08/08/17 06:59 06:59 06:59 Intake Total 1320 960 Output Total 2450 1300 Balance -1130 -340 - Physical Examination General/Neuro: alert & oriented x3, NAD Neck: no JVD present Lungs: unlabored respirations, other: (bilateral wheezes) Heart: RRR Abdomen: no HSM, NT/ND, soft - Labs Result Diagrams: 08/06/17 05:57 08/06/17 05:57 Troponin/CKMB - Assessment/Plan 1. Chronic congestive heart failure, non ischemic cardiomyopathy 2. Non Sustained Ventricular Tachycardia- suppressed with amiodarone, 19 beat VT run overnight on 08/06. Reduce Amiodarone to 200mg daily given underlying pulmonary disease. Hope to DC amio in 1 month 3. Dual chamber ICD inclusion 08/04 with RV lead revision on 08/06- pending device check today to confirm lead placement Ok for discharge from EP. Thank you for allowing us to participate in the care of this patient Discharge planning: Patient will need wound check with EP on 08/13 at 12:30 <Yadiel Tavares - Last Filed: 08/07/17 16:28> Cardiology Progress Note - Objective Vital Signs Temp Pulse Resp BP Pulse Ox 08/07/17 12:00 97.7 F 70 16 106/67 94 L 08/07/17 11:23 76 20 08/07/17 08:20 71 20 96 08/07/17 08:00 98.2 F 68 17 107/68 94 L 08/07/17 07:54 96 08/07/17 07:50 71 20 96 Weight 167 lb 08/06/17 08/07/17 08/08/17 06:59 06:59 06:59 Intake Total 1320 960 Output Total 2450 1300 Balance -1130 -340 - Labs Result Diagrams: 08/06/17 05:57 08/06/17 05:57 Troponin/CKMB CK-MB (CK-2) 2.1 ng/mL (0-6.6) 08/01/17 16:35 Troponin I 0.061 ng/mL (< 0.028) H 08/01/17 22:54 - Assessment/Plan I examined the patient and agree with the plan of Mrs Horvath.
--- NOTE | 2017-08-07 10:41 | PRG ---
DATE OF SERVICE: 08/07/2017 SUBJECTIVE: No shortness of breath. OBJECTIVE: VITAL SIGNS: Sats are 96% on room air, respiratory 20, temperature 98.5, blood pressure 107/68. CHEST: With no wheezing or crackles. CARDIAC: Normal S1, S2, no gallops. ABDOMEN: Soft, no masses. IMPRESSION: 1. Congestive cardiomyopathy status post AICD. 2. Respiratory failure. 3. Pneumonia. PLAN: The patient can be discharged home on present antibiotic. Follow up with primary care shilo hu
[2017-08-07] MEDS ORDERED: Carvedilol 3.125 MG TAB PO SCH (10:45)
[2017-08-07] MEDS: Acetaminophen/Codeine 30-300mg Tablet PO PRN (11:45)
[2017-08-07] MEDS ORDERED: Promethazine 25 MG TAB PO PRN (12:44)
[2017-08-07] MEDS: Carvedilol 3.125 MG TAB PO SCH (17:05)
[2017-08-07] MEDS: Famotidine 20 MG TAB PO SCH (21:13)
--- NOTE | 2017-08-07 23:09 | PRG ---
DATE OF SERVICE: 08/07/2017 HISTORY OF PRESENT ILLNESS: The patient states he had a bout of emesis with large breakfast this mor tony, reports heartburn following. He has had decreased appetite for lunch today. [facility] post-readjustment of right ventricular lead on AICD. AICD was successfully interrogated by [employer] and shown to be working perfectly. Cardiology and Pulmonolog y are happy for the patient to be ready for discharge. The patient has not ambulated significantly t ramon following emesis and interrogation. The patient reports he still is living with sister, has [employer], oxygen via compressor. At this point in time, has been weaned to room air and reports no s hortness of breath at rest. The patient has no other new complaints. PHYSICAL EXAMINATION: VITAL SIGNS: Temperature of 97.7, pulse of 70, respiratory rate of 16, oxygen saturation 94% on room air, blood pressure 106/67. GENERAL: The patient is alert, oriented, in no acute distress. HEENT: He is normocephalic, atraumatic. Right pupil opacified with erythematous sclera. NECK: Supple, nontender. HEART: Regular rate and rhythm at the time of exam. LUNGS: Clear to auscultation bilaterally. ABDOMEN: Soft, nontender. Positive bowel sounds throughout. EXTREMITIES: Lower extremities without cyanosis or edema. NEUROLOGIC: The patient is alert and oriented x3. No focal deficits. Speech is normal. ASSESSMENT AND PLAN: 1. Pneumonia. The patient is currently on oral antibiotics, room air, continuation of breathing raymundo atments and steroids for his baseline chronic obstructive pulmonary disease. The patient still has p .r.n. oxygen largely at night at home and would continue this upon discharge. 2. Ventricular tachycardia. No further reports of beats of V-tach. The patient had 19 beats prior to correct lead placement of AICD, which was interrogated today successfully. Cardiology recommendin g titration of amiodarone down and return to carvedilol. Blood pressure with standing. 3. Nausea and vomiting. We will titrate the patient's diet, cover with nausea medication, increase to Protonix plus Pepcid for additional coverage. If cardiac rehabilitation is unable to walk the pat ient tomorrow, we will have walking program to walk the patient. If the patient walks and eats, like ly will be discharged tomorrow in a.m.
[2017-08-08] MEDS: Acetaminophen/Codeine 30-300mg Tablet PO PRN (00:03)
[2017-08-08] MEDS: Cephalexin 250 MG CAP PO SCH ×3 (00:04→11:11)
[2017-08-08] MEDS: Mometasone/Formoterol 120 PUFF INHALER INH SCH (06:46)
[2017-08-08] MEDS: Escitalopram Oxalate 10 mg Tablet PO SCH (08:17)
[2017-08-08] MEDS: Furosemide 40 MG TAB PO SCH (08:17)
[2017-08-08] MEDS: Gabapentin 300 MG CAP PO SCH (08:17)
[2017-08-08] MEDS: predniSONE 20 MG TAB PO SCH (08:17)
[2017-08-08] MEDS: Ferrous Sulfate 325 MG TAB PO SCH (08:17)
[2017-08-08] MEDS: Famotidine 20 MG TAB PO SCH (08:17)
[2017-08-08] MEDS: Doxycycline 100 MG CAP PO SCH (08:17)
[2017-08-08] MEDS: Digoxin 0.125 MG TAB PO SCH (08:18)
[2017-08-08] MEDS: Amiodarone 200 MG TAB PO SCH (08:18)
[2017-08-08] MEDS: Carvedilol 3.125 MG TAB PO SCH (08:18)
[2017-08-08] MEDS: BOT EA EYE SCH (08:18)
[2017-08-08] MEDS: DIFLUPREDNATE EA EYE SCH (08:18)
[2017-08-08] MEDS ORDERED: Mag-Al 1200 mg/1200 mg/30 ML UDCUP PO SCH (15:00)
[2017-08-08 17:02] VITALS: BP 110/68; TEMP 97.9
--- NOTE | 2017-08-08 21:32 | DIS ---
DATE OF ADMISSION: 08/01/2017 DATE OF DISCHARGE: 08/08/2017 ADMITTING DIAGNOSES: Chest pain, shortness of breath. CONSULTATIONS: 1. Cardiology, Dr. Wasserman, I believe he saw him. 2. Electrophysiology, Dr. Tavares. 3. He also had a diagnosis of pneumonia and had consultation with Dr. Osborne, Pulmonology. DISCHARGE DIAGNOSES: 1. Chronic systolic congestive heart failure with nonischemic cardiomyopathy. 2. He had a nonsustained ventricular tachycardia. 3. He has a lobar pneumonia. PROCEDURE: He had a dual-chamber ICD placed. HOSPITAL COURSE: The patient is a 67-year-old black male, patient of Dr. Rae, with longstanding known history of heart disease as well as COPD and a history of cocaine and amphetamine abuse and op ioid dependency. During the hospital stay, he was found to have runs of SVT. He was put on antibiot ics and at the time of discharge, Dr. Osborne said it was okay just to be on Keflex for the next week. So, his discharge medications were going to be for Keflex 500 mg q.8 hours. He is also going to have Tylenol No. 3 for pain. Of note, Dr. Rae tried to send Tylenol No. 4 and the patient was told by the pharmacy today that that was not in stock, and the patient quickly requested hydrocodone. So, I have sent out a prescription for Tylenol No. 3, which is what he has been getting here in the hosp ital. He also will have a prescription for Protonix 40 mg once a day. His other medications include carvedilol 12.5 mg twice a day, digoxin 0.125 mg daily, aspirin 81 mg daily, iron 325 mg daily, [place] pro 10 mg daily, Lasix 40 mg twice a day. He has an Advair inhaler Diskus at home that he takes a pu ff twice a day, gabapentin 300 mg b.i.d., Lipitor 20 mg daily, potassium 20 mEq daily, Spiriva 18 mcg inhaled daily. The patient is to follow up with Dr. Tavares next , 08/13/2017. He is to call Dr. Rae's office early Thursday and make an appointment for later next week. He is to call Dr. Esperanza gutierrez's office and get an appointment in 2 weeks.
--- NOTE | 2017-08-27 19:05 | EKG ---
Test Reason : STAT Blood Pressure : / mmHG Vent. Rate : 067 BPM Atrial Rate : 067 BPM P-R Int : 174 ms QRS Dur : 102 ms QT Int : 422 ms P-R-T Axes : 027 088 -59 degrees QTc Int : 445 ms Normal sinus rhythm Low voltage QRS Possible Anterolateral infarct , age undetermined T wave abnormality, consider inferior ischemia Abnormal ECG When compared with ECG of 23-JUL-2017 09:39, (Unconfirmed) Premature ventricular complexes are no longer Present Premature supraventricular complexes are no longer Present Incomplete left bundle branch block is no longer Present Borderline criteria for Anterolateral infarct are now Present Confirmed by DR. Booker SUE ([id number]) on 08/27/2017 7:05:02 PM Referred By: Itz RODRIGUEZ Confirmed By:DR. Booker SUE
== END 2017-08-08 15:52 | disposition home or self-care (01) | DRG 245 ==
LOC: ERS 16:13 → CCU 17:20 → 2NO 08-04 15:47
PROVIDERS: ADMIT Family Medicine; ATTEND Family Medicine
PROC: 05HM33Z Insertion of Infusion Device into Right Internal Jugular Vein, Percutaneous Approach (ICD-10-PCS; 2017-08-01)
PROC: B543ZZA Ultrasonography of Right Jugular Veins, Guidance (ICD-10-PCS; 2017-08-01)
PROC: 0JH608Z Insertion of Defibrillator Generator into Chest Subcutaneous Tissue and Fascia, Open Approach (ICD-10-PCS; principal; 2017-08-04)
PROC: 0JH60PZ Insertion of Cardiac Rhythm Related Device into Chest Subcutaneous Tissue and Fascia, Open Approach (ICD-10-PCS; 2017-08-04)
PROC: 02WA3MZ Revision of Cardiac Lead in Heart, Percutaneous Approach (ICD-10-PCS; 2017-08-06)
PROC: 4B02XTZ Measurement of Cardiac Defibrillator, External Approach (ICD-10-PCS; 2017-08-06)
DX: I47.2 Ventricular tachycardia (principal); J96.20 Acute and chronic respiratory failure, unspecified whether with hypoxia or hypercapnia; I50.23 Acute on chronic systolic (congestive) heart failure; J18.9 Pneumonia, unspecified organism; I42.8 Other cardiomyopathies; I13.0 Hypertensive heart and chronic kidney disease with heart failure and stage 1 through stage 4 chronic kidney disease, or unspecified chronic kidney disease; N18.3 Chronic kidney disease, stage 3 (moderate); J44.0 Chronic obstructive pulmonary disease with (acute) lower respiratory infection; T82.120A Displacement of cardiac electrode, initial encounter; I25.10 Atherosclerotic heart disease of native coronary artery without angina pectoris; F41.9 Anxiety disorder, unspecified; F32.9 Major depressive disorder, single episode, unspecified; Y71.3 Surgical instruments, materials and cardiovascular devices (including sutures) associated with adverse incidents; Y92.239 Unspecified place in hospital as the place of occurrence of the external cause; E87.6 Hypokalemia; Z91.14 Patient's other noncompliance with medication regimen; H54.61 Unqualified visual loss, right eye, normal vision left eye; F14.10 Cocaine abuse, uncomplicated; F15.10 Other stimulant abuse, uncomplicated; E87.5 Hyperkalemia; F17.210 Nicotine dependence, cigarettes, uncomplicated
CPT/HCPCS: 33215; 33249; 36415; 36416; 71045; 80048; 80053; 82553; 82805; 83605; 83690; 83735; 84443; 84484; 85025; 87040; 87070; 87205; 87389; 93005; 93010; 93306; 93641; 93798; 94640; 96361; 96374; 96375; A4216; C1721; C1777; C1898; J0282; J0456; J0690; J0696; J1250; J1265; J1580; J1815; J2250; J2270; J2405; J2550; J2704; J3010; J3480; J3490; J7050; J7070; J7506; J7611; J7620

== ENCOUNTER 2017-08-25 15:17 | Emergency (ER) | payer MEDICARE, MEDICAID ==
[2017-08-25 16:18] LABS: #Eosinphils 0.1 thou/uL (0.0-0.7); #Lymphocytes 1.5 thou/uL (1.20-3.40); #Monocytes 0.7 thou/uL (0.11-0.59); #Neutrophils 2.5 thou/uL (1.40-6.50); %Eosinophils 2.9 % (0.0-10.0); %Lymphocytes 30.3 % (21.0-51.0); %Monocytes 14.5 % (0.0-10.0); %Neutrophils 51.3 % (42.0-75.0); Hemoglobin 13.5 g/dL (14.0-18.0); Mean Corpuscular HGB CONC 32.1 g/dL (32.0-36.0); Mean Corpuscular Hemoglobin 32.1 pg (27.0-31.0); Mean Platelet Volume 9.1 fL (7.4-10.4); Platelet Count 169 thou/uL (130-400); RBC Distribution Width 12.9 % (11.5-14.5); Red Blood Cell (RBC) Count 4.21 mill/uL (4.70-6.10); White Blood Cell (WBC) Count 4.8 thou/uL (4.8-10.8)
[2017-08-25 16:39] LABS: ALT (SGPT) 19 U/L (8-55); AST (SGOT) 31 U/L (5-34); Albumin 3.8 g/dL (3.4-4.8); Alkaline Phosphatase 73 U/L (40-150); Anion Gap 13 mmol/L (10-20); BUN (Urea Nitrogen) 14 mg/dL (8.4-25.7); Bilirubin, Total 0.8 mg/dL (0.2-1.2); CK (CPK) 79 U/L (30-200); Calc. Creatinine Clearance 0 mL/min (70-130); Carbon Dioxide 27 mmol/L (23-31); Chloride 104 mmol/L (98-107); Estimated GFR-MDRD 58; Globulin 3.5 g/dL (2.4-3.5); Glucose 89 mg/dL (80-115); Lipase 24 U/L (8-78); Potassium 3.4 mmol/L (3.5-5.1); Protein, Total 7.3 g/dL (5.8-8.1); Sodium 141 mmol/L (136-145)
[2017-08-25 16:42] LABS: CKMB 1.3 ng/mL (0-6.6)
--- NOTE | 2017-08-25 17:05 | RAD ---
CHEST ONE VIEW: 08/25/17 HISTORY: Chest pain. COMPARISON: 08/05/17. FINDINGS: The cardiac silhouette is magnified and enlarged. Pulmonary vasculature is upper limits of normal. Me diastinum is midline with a dual lead left subclavian cardiac electronic device. Linear atelectasis p rojects over the right lung base. Lungs are otherwise hyperinflated. No lobar consolidation or eviden ce of pneumothorax. hospital monitor leads overlie the chest. IMPRESSION: COPD. POS: [facility]
[2017-08-25] MEDS ORDERED: HYDROcodone/Acetaminophen 5/325 mg Tablet ONE (18:45)
--- NOTE | 2017-09-26 15:56 | EKG ---
Test Reason : Blood Pressure : / mmHG Vent. Rate : 063 BPM Atrial Rate : 063 BPM P-R Int : 000 ms QRS Dur : 200 ms QT Int : 566 ms P-R-T Axes : 000 -89 087 degrees QTc Int : 579 ms Ventricular-paced rhythm with frequent atrial-paced complexes in a pattern of bigeminy Abnormal ECG Confirmed by PATRICK BAILEY, SUNDAY ([id number]), associate entertainment editor NATHANIEL BUTCHER ([id number]) on 09/26/2017 3:55:43 PM Referred By: Confirmed By:SUNDAY NGUYEN MD
== END 2017-08-25 18:57 | disposition home or self-care (01) ==
LOC: ERS 15:17
DX: R07.89 Other chest pain (principal); I11.0 Hypertensive heart disease with heart failure; I50.9 Heart failure, unspecified; E78.5 Hyperlipidemia, unspecified; J44.9 Chronic obstructive pulmonary disease, unspecified; F41.9 Anxiety disorder, unspecified; F17.210 Nicotine dependence, cigarettes, uncomplicated; H17.9 Unspecified corneal scar and opacity
CPT/HCPCS: 36415; 71045; 80053; 82550; 82553; 83690; 84484; 85025; 93005

== ENCOUNTER 2017-09-09 12:07 | Inpatient (IN) | payer MEDICARE, MEDICAID ==
[2017-09-09] MEDS ORDERED: methylPREDNISolone Sod Succ/PF 125 MG/2 ML VIAL ONE (12:39)
[2017-09-09 12:54] LABS: #Eosinphils 0.1 thou/uL (0.0-0.7); #Lymphocytes 1.2 thou/uL (1.20-3.40); #Monocytes 0.5 thou/uL (0.11-0.59); #Neutrophils 2.7 thou/uL (1.40-6.50); %Basophils 0.9 % (0.0-1.0); %Eosinophils 2.1 % (0.0-10.0); %Lymphocytes 26.5 % (21.0-51.0); %Monocytes 10.1 % (0.0-10.0); %Neutrophils 60.4 % (42.0-75.0); Mean Corpuscular HGB CONC 31.7 g/dL (32.0-36.0); Mean Corpuscular Hemoglobin 31.2 pg (27.0-31.0); Mean Corpuscular Volume 98.4 fl (80.0-94.0); Mean Platelet Volume 10.3 fL (7.4-10.4); Platelet Count 151 thou/uL (130-400); RBC Distribution Width 12.5 % (11.5-14.5); Red Blood Cell (RBC) Count 4.48 mill/uL (4.70-6.10); White Blood Cell (WBC) Count 4.5 thou/uL (4.8-10.8)
[2017-09-09 13:04] LABS: INR-International Normal Ratio 1.1; Prothrombin Time 13.8 SEC (12.0-14.7)
[2017-09-09 13:23] LABS: CKMB 1.4 ng/mL (0-6.6)
[2017-09-09 13:46] LABS: ALT (SGPT) 28 U/L (8-55); AST (SGOT) 45 U/L (5-34); Albumin 3.8 g/dL (3.4-4.8); Alkaline Phosphatase 84 U/L (40-150); Anion Gap 15 mmol/L (10-20); BUN (Urea Nitrogen) 14 mg/dL (8.4-25.7); Calc. Creatinine Clearance 0 mL/min (70-130); Calcium 8.9 mg/dL (7.8-10.44); Carbon Dioxide 25 mmol/L (23-31); Chloride 102 mmol/L (98-107); Estimated GFR-MDRD 60; Globulin 3.6 g/dL (2.4-3.5); Glucose 145 mg/dL (80-115); Potassium 3.6 mmol/L (3.5-5.1); Protein, Total 7.4 g/dL (5.8-8.1); Sodium 138 mmol/L (136-145)
--- NOTE | 2017-09-09 14:37 | RAD ---
CHEST ONE VIEW: History: 67-year-old male with history of chest pain. FINDINGS: There is cardiomegaly. Increased linear and interstitial markings are noted bilaterally with some mor e confluent parenchymal change in the right lower lung zone, either the right middle lobe and/or righ t lower lobe, new from 2-6-18, certainly raising concern for developing pneumonia. The left lung appe ars stable. No significant pleural effusion although there is slight right costophrenic angle bluntin g. IMPRESSION: New interstitial and alveolar parenchymal changes in the right lower lung zone, either right middle l obe and/or right lower lobe pneumonia with slight right costophrenic angle blunting. Stable chronic c hanges. Stable cardiomegaly. POS: [facility]
[2017-09-09 15:08] LABS: Bilirubin Negative (Negative); Blood, Urine Negative (Negative); Clarity CLOUDY (Clear); Glucose, Urine (Dipstick) Negative (Negative); Leukocyte Negative (Negative); Nitrite Negative (Negative); Protein, Urine (Dipstick) Negative (Neg-Trace); Specific Gravity, Urine 1.008 (1.002-1.036); pH, Urine 6.5 (5.0-9.0)
[2017-09-09] MEDS ORDERED: Furosemide 20 MG/2 ML VIAL ONE (15:34)
[2017-09-09] MEDS ORDERED: Furosemide 40 MG/4 ML VIAL ONE (15:34)
[2017-09-09] MEDS ORDERED: HYDROcodone/Acetaminophen 5/325 mg Tablet ONE (15:34)
[2017-09-09] MEDS ORDERED: Potassium Chloride 20 MEQ TAB ONE (15:34)
[2017-09-09 17:10] LABS: Troponin I 0.044 ng/mL (< 0.028)
[2017-09-09] MEDS ORDERED: Ondansetron ODT 4 MG TAB SL PRN (17:13)
[2017-09-09] MEDS ORDERED: Acetaminophen 325 MG TAB PO PRN (17:13)
[2017-09-09] MEDS ORDERED: Ondansetron HCl/PF 4 MG/2 ML Vial IVP PRN (17:13)
[2017-09-09 17:24] VITALS: BMI 20.7
[2017-09-09] MEDS ORDERED: Prevnar 13-Val Conj/PF 0.5 ML SYRINGE IM ONE (18:45)
[2017-09-09] MEDS ORDERED: FLU VACC TS2017-18 (>65YR) 0.5 ML SYRINGE IM ONE (18:45)
[2017-09-09] MEDS: Mometasone/Formoterol 120 PUFF INHALER INH SCH (19:31)
[2017-09-09 20:13] LABS: Troponin I 0.031 ng/mL (< 0.028)
[2017-09-09] MEDS: Carvedilol 6.25 MG TAB PO SCH (21:27)
[2017-09-09] MEDS: Gabapentin 300 MG CAP PO SCH (21:27)
[2017-09-09] MEDS: cefTRIAXone\\ROCEPHIN 2 GM in Sodium Chloride 0.9% 100 ML IVPB SCH (21:27)
[2017-09-10 05:30] LABS: #Lymphocytes 0.5 thou/uL (1.20-3.40); #Monocytes 0.2 thou/uL (0.11-0.59); %Eosinophils 0.2 % (0.0-10.0); %Lymphocytes 10.4 % (21.0-51.0); %Monocytes 4.8 % (0.0-10.0); %Neutrophils 84.6 % (42.0-75.0); Hemoglobin 12.4 g/dL (14.0-18.0); Mean Corpuscular HGB CONC 32.7 g/dL (32.0-36.0); Mean Corpuscular Hemoglobin 32.2 pg (27.0-31.0); Mean Corpuscular Volume 98.4 fl (80.0-94.0); Platelet Count 134 thou/uL (130-400); RBC Distribution Width 12.2 % (11.5-14.5); Red Blood Cell (RBC) Count 3.85 mill/uL (4.70-6.10); White Blood Cell (WBC) Count 4.7 thou/uL (4.8-10.8)
[2017-09-10 05:37] LABS: ALT (SGPT) 20 U/L (8-55); AST (SGOT) 23 U/L (5-34); Albumin 3.3 g/dL (3.4-4.8); Alkaline Phosphatase 73 U/L (40-150); Anion Gap 11 mmol/L (10-20); BUN (Urea Nitrogen) 14 mg/dL (8.4-25.7); Bilirubin, Total 0.6 mg/dL (0.2-1.2); Calc. Creatinine Clearance 57 mL/min (70-130); Calcium 8.7 mg/dL (7.8-10.44); Carbon Dioxide 27 mmol/L (23-31); Chloride 101 mmol/L (98-107); Estimated GFR-MDRD 68; Globulin 2.9 g/dL (2.4-3.5); Glucose 192 mg/dL (80-115); Potassium 3.3 mmol/L (3.5-5.1); Protein, Total 6.2 g/dL (5.8-8.1); Sodium 136 mmol/L (136-145)
[2017-09-10] MEDS: Furosemide 40 MG/4 ML VIAL SLOW IVP SCH ×2 (05:39→13:34)
--- NOTE | 2017-09-10 05:58 | HP ---
DATE OF SERVICE: 09/09/2017 CHIEF COMPLAINT: Shortness of breath. HISTORY OF PRESENT ILLNESS: The patient is status post AICD placement for systolic CHF. He was supposed to see Dr. James today in office, found to have shortness of breath and instructed him to go emergency department. He has been unable to fill his COPD medication, states he has had no medications this morning including his normal Lasix. The patient is on p.r.n. oxygen at home for COPD, reports somewhat baseline sputum production, but increase in his shortness of breath, some relief with oxygen given in the emergency department and breathing treatment. The patient denies any fevers or chills, any changes in GI. FORMAL REVIEW OF SYSTEMS: No fevers, no chills, no runny nose or congestion. Positive cough, shortness of breath, positive wheeze, no abdominal pain, no diarrhea, no constipation. No lower extremity edema, no headache, no vision changes. Baseline decreased vision in the right eye. Allergies: codeine: puritis Meds: Pantoprazole 40mg Amiodarone 200mg Trazodone 50m prn qhs K-dur 20meq bid Gabapentin 300mg BID Albuterol 90mcg/act 2 puff q6 hr prn wheeze home oxygen 2L NC prn at night/day carvedilol 6.25mg bid breo ellipta 200-25mcg/inh Escitalopram 10mg hydroxyzine 25mg prn qhs furosemide 40mg bid ASA 81mg Past Med/Surg/Social: Right thumb osteomyelitis/abscess drainage. AICD placement Current smoker, hx of cocaine abuse Lives with nephew with poor heating Glaucoma COPD Chronic respiratory failure ED Systolic CHF seasonal allergies recurrent major depression Insomnia CKD III HTN GERD OA Anemia of chronic disease PHYSICAL EXAMINATION: VITAL SIGNS: On arrival to the floor, temperature of 98.3, pulse is 77, respiratory rate 20, oxygen saturation 98% on 2 liters nasal cannula, blood pressure 115/81. LABORATORY DATA: Review of laboratory work, white blood cell count of 4.5, hemoglobin of 4.0, platelet count 151. Neutrophil percent 60.4, INR of 1.1. Troponins x3, 0.04, 0.04, 0.03. BNP elevated at 3195, albumin of 3.8. Sodium of 138, potassium of 3.6, chloride of 102, CO2 of 25, BUN of 14, creatinine of 1.4, glucose of 145, total bilirubin of 1.0. AST of 45, ALT of 28. Urinalysis normal. Chest x-ray in comparison to recent postoperative films possible interstitial and parenchymal changes in the right lower lobe which may represent pneumonia. Other chronic changes regarding COPD are stable. PHYSICAL EXAMINATION: GENERAL: The patient is alert and oriented, no acute distress. HEENT: Head is normocephalic, atraumatic. Extraocular movements are intact. Right pupil is opacified. Nasal cannula in place. Oral mucosa is moist. NECK: Supple. HEART: Regular rate and rhythm, harsh systolic phase. LUNGS: With coarse breath sounds bilaterally. ABDOMEN: Soft, nontender, positive bowel sounds throughout. EXTREMITIES: Lower extremities without cyanosis or edema. NEUROLOGIC: The patient is alert and oriented x3, no focal deficits. Speech is normal. ASSESSMENT AND PLAN: Systolic congestive heart failure exacerbation, converting p.o. Lasix with IV Lasix. The patient missed several doses on an outpatient basis, likely related to increased shortness of breath on presentation. Restarting the patient's home medications regarding chronic obstructive pulmonary disease, unclear of exacerbation at this point in time. We will go ahead and start steroid burst as well as his normal respiratory regimen scheduled DuoNebs. Given possible findings of pneumonia despite no significant disturbance in fever profile, white blood count or left shift, we will cover with Rocephin at this point in time. We will follow patient's need for oxygen saturation and breathing profile. If he continue to remain short of breath, we will repeat x-ray in 1-2 days for progress. The patient is placed on telemetry. If any signs of disturbance on function of pacemaker, we will consult Cardiology. We will notify Dr. Tavares's office that patient is missing his appointment tomorrow. JONATHAN
[2017-09-10] MEDS: Mometasone/Formoterol 120 PUFF INHALER INH SCH ×2 (06:35→18:39)
[2017-09-10] MEDS: Carvedilol 6.25 MG TAB PO SCH ×2 (08:49→21:45)
[2017-09-10] MEDS: Escitalopram Oxalate 10 mg Tablet PO SCH (08:49)
[2017-09-10] MEDS: predniSONE 20 MG TAB PO SCH (08:49)
[2017-09-10] MEDS: Digoxin 0.125 MG TAB PO SCH (08:49)
[2017-09-10] MEDS: Atorvastatin Calcium 20 MG TAB PO SCH (08:49)
[2017-09-10] MEDS: Gabapentin 300 MG CAP PO SCH ×2 (08:49→21:44)
[2017-09-10] MEDS: Aspirin 81 mg Enteric Coated Tablet PO SCH (08:49)
[2017-09-10] MEDS: Amiodarone 200 MG TAB PO SCH (08:49)
[2017-09-10] MEDS: Enoxaparin Sodium 30 MG/0.3 ML SYRINGE SC SCH (08:49)
[2017-09-10] MEDS ORDERED: BOT EA EYE SCH (09:00)
[2017-09-10] MEDS ORDERED: DIFLUPREDNATE EA EYE SCH (09:00)
[2017-09-10] MEDS ORDERED: Brimonidine Tartrate 0.2% Ophth Soln 5 ml Bottle EA EYE SCH (09:00)
[2017-09-10] MEDS ORDERED: Timolol 0.5% Ophth Soln 5 ml Bottle EA EYE SCH (09:00)
[2017-09-10] MEDS: traMADol HCl 50 MG TAB PO PRN ×2 (11:29→21:44)
--- NOTE | 2017-09-10 16:00 | EKG ---
Test Reason : Blood Pressure : / mmHG Vent. Rate : 072 BPM Atrial Rate : 072 BPM P-R Int : 170 ms QRS Dur : 138 ms QT Int : 494 ms P-R-T Axes : -17 -36 203 degrees QTc Int : 540 ms Electronic atrial pacemaker Premature ventricular complexes Left axis deviation Non-specific intra-ventricular conduction block T wave abnormality, consider lateral ischemia Abnormal ECG Confirmed by ROSA DE LA ROSA ([id number]) on 09/10/2017 3:59:34 PM Referred By: MICHAEL Confirmed By:ROSA DE LA ROSA
[2017-09-10] MEDS: Potassium Chloride 20 MEQ TAB PO SCH (16:25)
[2017-09-10] MEDS ORDERED: hydrOXYzine 10 MG/5 ML UDCUP PO SCH (21:00)
[2017-09-10] MEDS: cefTRIAXone\\ROCEPHIN 2 GM in Sodium Chloride 0.9% 100 ML IVPB SCH (22:59)
--- NOTE | 2017-09-10 23:51 | PRG ---
DATE OF SERVICE: 09/10/2017 HISTORY OF PRESENT ILLNESS: The patient was improved breathing following steroids and Lasix, has res ponded well with scheduled breathing treatments. The patient denies any new complaints, was ambulati ng without oxygen around the unit without difficulty. He actually reports some dyspnea 100% oxygen w as slightly improved. Oxygen saturations above 90%. He states he has had difficulty with his living situation, now moved out of the home with his sister into the home with his nephew. He states that the heater does not function well and he was living in a situation, where the temperature was approxi mately 50 degrees on expiration occurred, but states he is much improved in the warmth of the [facility] currently. PHYSICAL EXAMINATION: VITAL SIGNS: Temperature of 97.5, pulse of 80, respiratory rate of 18, oxygen saturation 99% on 1.5 liters nasal cannula, blood pressure 109/80. LABORATORY DATA: White blood cell count of 4.7, hemoglobin 12.4, platelet count of 134, potassium of 3.3, magnesium of 1.8, creatinine of 1.2. Urine culture, no growth. Blood culture, no growth at 24 hours. GENERAL: The patient is alert and oriented, in no acute distress. HEENT: Normocephalic, atraumatic. Extraocular movements are intact. Right pupil is opacified. Ora l mucosa is moist. NECK: Supple. CARDIOVASCULAR: Heart regular rate and rhythm. No murmurs auscultated. Pacemaker in place to the l eft anterior chest wall. ABDOMEN: Soft, nontender, positive bowel sounds throughout. EXTREMITIES: Lower extremities without cyanosis or edema. NEUROLOGIC: The patient alert and oriented x3, no focal deficits. Speech is normal. ASSESSMENT AND PLAN: Systolic congestive heart failure, COPD, chronic bronchitis, suspected pneumoni a present on admission. Continuing Lasix, transition to oral. Continue breathing treatments, steroi ds, and Rocephin. Following up chest x-ray in a.m. We will consult case management to see if there is any assistance with his living situation available, but the patient likely nearing discharge jama kaplan tomorrow.
[2017-09-11 05:35] LABS: Anion Gap 13 mmol/L (10-20); BUN (Urea Nitrogen) 22 mg/dL (8.4-25.7); Calc. Creatinine Clearance 52 mL/min (70-130); Calcium 8.8 mg/dL (7.8-10.44); Carbon Dioxide 28 mmol/L (23-31); Chloride 100 mmol/L (98-107); Estimated GFR-MDRD 57; Glucose 166 mg/dL (80-115); Hemoglobin A1c 4.4 % (4.0-6.0); Potassium 3.5 mmol/L (3.5-5.1); Sodium 137 mmol/L (136-145)
[2017-09-11] MEDS: Mometasone/Formoterol 120 PUFF INHALER INH SCH (07:05)
[2017-09-11] MEDS ORDERED: Furosemide 40 MG TAB PO SCH (07:30)
--- NOTE | 2017-09-11 08:02 | RAD ---
PA AND LATERAL VIEWS CHEST: HISTORY: COPD, CHF. FINDINGS/IMPRESSION: Comparison is made with the exam of 09/09/17. Left-sided pacing device remains in place. The heart is enlarged. Chronic changes are seen. No lob ar consolidation, pneumothoraces, or emily pulmonary edema are identified. Small pleural effusions m ay be present. There are postop changes in the lower cervical spine. POS: [facility]
--- NOTE | 2017-09-11 08:10 | PQF ---
CLINICAL DOCUMENTATION IMPROVEMENT CLARIFICATION FORM: ICD-10 Updated PLEASE DO AN ADDENDUM TO THE PROGRESS NOTE WITH ANY DOCUMENTATION UPDATES OR ADDITIONS AND CARRY THROUGH TO DC SUMMARY. THANK YOU. DATE: 09/11 ATTN: DR. KEILY RODRIGUEZ Please exercise your independent, professional judgment in responding to the clarification form. Clinical indicators are provided on the bottom of this form for your review. Please check appropriate box(s): [ ] Pneumonia secondary to (specify organism / underlying disease) [ x ] Simple Pneumonia (community acquired - nosocomial) [ ] Bronchopneumonia [ ] Pneumonia of unknown etiology [ ] Other diagnosis [ ] Unable to determine For continuity of documentation, please document condition throughout progress notes and discharge summary. Thank You. CLINICAL INDICATORS - SIGNS / SYMPTOMS / LABS PHYSICIAN H&P DOCUMENTATION 09/09: IMAGING DATA: POSSIBLE INTERSTITIAL AND PARENCHYMAL CHANGES IN THE RLL WHICH MAY REPRESENT PNEUMONIA. ASSESSMENT & PLAN: GIVEN POSSIBLE FINDINGS OF PNEUMONIA DESPITE NO SIGNIFICANT DISTURBANCE IN FEVER PROFILE, WBC OR LEFT SHIFT, WE WILL COVER W/ROCEPHIN AT THIS POINT IN TIME. PROGRESS NOTE 09/10: ASSESSMENT & PLAN: ...SUSPECTED PNEUMONIA, PRESENT ON ADMISSION. ...CONTINUE BREATHING TREATMENTS, STEROIDS, & ROCEPHIN. RISK FACTORS COPD TOBACCO DEPENDENCE TREATMENTS: IV ANTIBIOTIC (ROCEPHIN 09/09 - PRESENT) RESPIRATORY TREATMENTS THANK YOU! Tabitha (This form is maintained as a part of the permanent medical record) 2014 [employer]. All Rights Reserved Tabitha Leger RN, BSN [email or web address] Office: [phone] [facility]
[2017-09-11] MEDS: Digoxin 0.125 MG TAB PO SCH (08:58)
[2017-09-11] MEDS: Atorvastatin Calcium 20 MG TAB PO SCH (08:59)
[2017-09-11] MEDS: Escitalopram Oxalate 10 mg Tablet PO SCH (08:59)
[2017-09-11] MEDS: predniSONE 20 MG TAB PO SCH (08:59)
[2017-09-11] MEDS: Gabapentin 300 MG CAP PO SCH (08:59)
[2017-09-11] MEDS: Aspirin 81 mg Enteric Coated Tablet PO SCH (09:00)
[2017-09-11] MEDS: Potassium Chloride 20 MEQ TAB PO SCH (09:00)
[2017-09-11] MEDS: Carvedilol 6.25 MG TAB PO SCH (09:00)
[2017-09-11] MEDS ORDERED: Brimonidine Tartrate 0.2% Ophth Soln 5 ml Bottle R EYE SCH (09:00)
[2017-09-11] MEDS: Enoxaparin Sodium 30 MG/0.3 ML SYRINGE SC SCH (09:01)
[2017-09-11] MEDS: Amiodarone 200 MG TAB PO SCH (09:01)
[2017-09-11] MEDS: traMADol HCl 50 MG TAB PO PRN (12:57)
[2017-09-11 13:11] VITALS: BP 118/86; TEMP 97.1
--- NOTE | 2017-09-13 22:44 | DIS ---
DATE OF ADMISSION: 09/09/2017 DATE OF DISCHARGE: 09/11/2017 CHIEF COMPLAINT: Shortness of breath. HISTORY OF PRESENT ILLNESS: On admission, the patient states he had acute increase in shortness of b reath. Has chronic respiratory failure secondary to chronic obstructive pulmonary disease and systol ic congestive heart failure, recently had AICD placed successfully in the last hospital admission in the last 2 months. Reports she has a transition from her sister living with this nephew, has poor ea ting and social situation, was unable to get access to his medications on pharmacy refill. This a.m. missed his a.m. dose of breathing treatment as well as Lasix, presented to emergency department, req uiring oxygen. He has home oxygen. HOSPITAL COURSE: Chest x-ray showed possible right lower lobe pneumonia and was treated with Rocephi n. Repeat chest x-ray, much improved. The patient continued on breathing treatments, steroids, IV L asix transitioned back to oral, potassium was replaced. Elevated troponin secondary to heart strain was stable. The patient additionally has a stable chronic kidney disease stage 3. The patient was t olerating ambulation around the unit without difficulty without oxygen prior to discharge. Discharge d home with Augmentin. DISCHARGE DIET: Heart healthy. DISCHARGE MEDICATIONS: Augmentin in addition to current home medications. The patient will follow up with myself, Sid Rae M.D., and PCP in the clinic in 7-10 days. Harjit zeng up with Cardiology and Pulmonology next month. The patient has been noncompliant with cardiac rehabilitation, states he does not have the funds or ride available to attend them. DISCHARGE CONDITION: Stable.
--- NOTE | 2017-10-03 14:22 | EKG ---
Test Reason : Blood Pressure : / mmHG Vent. Rate : 069 BPM Atrial Rate : 069 BPM P-R Int : 152 ms QRS Dur : 124 ms QT Int : 454 ms P-R-T Axes : 000 104 227 degrees QTc Int : 486 ms Normal sinus rhythm Lateral infarct , age undetermined Abnormal ECG Confirmed by SHELLY CANTU M.D. ([id number]), assignment desk editor NATHANIEL BUTCHER ([id number]) on 10/03/2017 2:21:35 PM Referred By: Confirmed By:SHELLY CANTU M.D.
== END 2017-09-11 15:53 | disposition home or self-care (01) | DRG 291 ==
LOC: ERS 12:07 → 2NO 15:27
PROVIDERS: ADMIT Family Medicine; ATTEND Family Medicine
DX: I13.0 Hypertensive heart and chronic kidney disease with heart failure and stage 1 through stage 4 chronic kidney disease, or unspecified chronic kidney disease (principal); J18.9 Pneumonia, unspecified organism; N17.9 Acute kidney failure, unspecified; J96.10 Chronic respiratory failure, unspecified whether with hypoxia or hypercapnia; Z99.81 Dependence on supplemental oxygen; N18.3 Chronic kidney disease, stage 3 (moderate); I50.23 Acute on chronic systolic (congestive) heart failure; J42 Unspecified chronic bronchitis; Z95.810 Presence of automatic (implantable) cardiac defibrillator; Z88.5 Allergy status to narcotic agent; Z79.82 Long term (current) use of aspirin; F17.210 Nicotine dependence, cigarettes, uncomplicated; F14.11 Cocaine abuse, in remission; H40.9 Unspecified glaucoma; F32.9 Major depressive disorder, single episode, unspecified; J30.2 Other seasonal allergic rhinitis; G47.00 Insomnia, unspecified; K21.9 Gastro-esophageal reflux disease without esophagitis; M19.90 Unspecified osteoarthritis, unspecified site; D63.8 Anemia in other chronic diseases classified elsewhere; E78.5 Hyperlipidemia, unspecified; F41.9 Anxiety disorder, unspecified
CPT/HCPCS: 36415; 71045; 71046; 80048; 80053; 81003; 82553; 83036; 83735; 83880; 84484; 85025; 85610; 87040; 87086; 87804; 90471; 90682; 93005; 93010; 94640; 96361; 96374; 96375; A4216; G0008; J0696; J1650; J1940; J2930; J7050; J7506; J7620; Q2036

== ENCOUNTER 2017-10-02 20:56 | Inpatient (IN) | payer MEDICARE, MEDICAID ==
[2017-10-02 21:25] LABS: #Eosinphils 0.1 thou/uL (0.0-0.7); #Lymphocytes 1.1 thou/uL (1.20-3.40); #Monocytes 0.6 thou/uL (0.11-0.59); #Neutrophils 2.8 thou/uL (1.40-6.50); %Basophils 0.6 % (0.0-1.0); %Eosinophils 1.1 % (0.0-10.0); %Lymphocytes 24.1 % (21.0-51.0); %Monocytes 13.6 % (0.0-10.0); %Neutrophils 60.5 % (42.0-75.0); Hemoglobin 12.9 g/dL (14.0-18.0); Mean Corpuscular HGB CONC 33.3 g/dL (32.0-36.0); Mean Corpuscular Hemoglobin 31.6 pg (27.0-31.0); Mean Corpuscular Volume 95.1 fl (80.0-94.0); Mean Platelet Volume 8.8 fL (7.4-10.4); Platelet Count 198 thou/uL (130-400); RBC Distribution Width 12.5 % (11.5-14.5); Red Blood Cell (RBC) Count 4.09 mill/uL (4.70-6.10); White Blood Cell (WBC) Count 4.6 thou/uL (4.8-10.8)
[2017-10-02] MEDS ORDERED: Albuterol Sulfate 2.5 mg/0.5 ml Neb ONE (21:41)
[2017-10-02 21:42] LABS: ALT (SGPT) 23 U/L (8-55); AST (SGOT) 35 U/L (5-34); Albumin 3.8 g/dL (3.4-4.8); Alkaline Phosphatase 75 U/L (40-150); Anion Gap 14 mmol/L (10-20); BUN (Urea Nitrogen) 14 mg/dL (8.4-25.7); Bilirubin, Total 1.1 mg/dL (0.2-1.2); CK (CPK) 86 U/L (30-200); Calc. Creatinine Clearance 0 mL/min (70-130); Calcium 8.7 mg/dL (7.8-10.44); Carbon Dioxide 25 mmol/L (23-31); Chloride 105 mmol/L (98-107); Estimated GFR-MDRD 69; Globulin 3.3 g/dL (2.4-3.5); Glucose 96 mg/dL (80-115); Potassium 3.3 mmol/L (3.5-5.1); Protein, Total 7.1 g/dL (5.8-8.1); Sodium 141 mmol/L (136-145)
[2017-10-02 21:49] LABS: CKMB 1.2 ng/mL (0-6.6); Troponin I 0.042 ng/mL (< 0.028)
--- NOTE | 2017-10-02 21:51 | RAD ---
FRONTAL RADIOGRAPH CHEST: 10/02/17 COMPARISON: 09/09/17. HISTORY: COPD, CHF, dyspnea. FINDINGS: Heart and mediastinal contours are stable. cardiac silhouette is prominent. Stable dual lead AICD not ed. No pneumothorax noted. There is increased linear density in the right lung base which may signify volume loss or mild infilt rate. IMPRESSION: Mild increased linear density in the right lung base as above. No lobar consolidation or alveolar torey ma. POS: EMILY
[2017-10-02] MEDS ORDERED: Nitroglycerin 2% Ointment 1 INCH/1 GM Packet ONE (22:08)
[2017-10-03 00:44] LABS: Troponin I 0.041 ng/mL (< 0.028)
[2017-10-03 00:52] VITALS: BMI 21.1
[2017-10-03] MEDS ORDERED: Ondansetron HCl/PF 4 MG/2 ML Vial IVP PRN (00:52)
[2017-10-03] MEDS ORDERED: Acetaminophen 325 MG TAB PO PRN (00:52)
[2017-10-03] MEDS ORDERED: Ondansetron ODT 4 MG TAB SL PRN (00:52)
[2017-10-03] MEDS ORDERED: Albuterol Sulfate 2.5 mg/3 ml Neb NEB PRN (00:52)
[2017-10-03] MEDS ORDERED: Aspirin 325 MG TAB PO SCH (09:00)
[2017-10-03] MEDS ORDERED: Prevnar 13-Val Conj/PF 0.5 ML SYRINGE IM ONE (09:00)
[2017-10-03] MEDS ORDERED: PROVENTIL INHALER 6.7 G (200 INHALATIONS) INH PRN (09:51)
[2017-10-03] MEDS ORDERED: Amiodarone 200 MG TAB PO SCH (11:30)
[2017-10-03] MEDS ORDERED: Ferrous Sulfate 325 MG TAB PO SCH (11:30)
[2017-10-03] MEDS ORDERED: Timolol 0.5% Ophth Soln 5 ml Bottle EA EYE SCH (11:30)
[2017-10-03] MEDS ORDERED: Escitalopram Oxalate 10 mg Tablet PO SCH (11:30)
[2017-10-03] MEDS ORDERED: Lisinopril 2.5 MG TAB PO SCH (11:30)
[2017-10-03] MEDS ORDERED: Potassium Chloride 20 MEQ TAB PO SCH (11:30)
[2017-10-03] MEDS ORDERED: Aspirin 81 mg Enteric Coated Tablet PO SCH (11:30)
[2017-10-03] MEDS ORDERED: Brimonidine Tartrate 0.2% Ophth Soln 5 ml Bottle EA EYE SCH (11:30)
[2017-10-03] MEDS ORDERED: Carvedilol 6.25 MG TAB PO SCH (11:30)
[2017-10-03] MEDS ORDERED: Gabapentin 300 MG CAP PO SCH (11:30)
--- NOTE | 2017-10-03 13:36 | HP ---
DATE OF ADMISSION: 10/03/2017 PRIMARY CARE PHYSICIAN: Dr. Sid Rae. CHIEF COMPLAINT: Cough and shortness of breath. HISTORY OF PRESENT ILLNESS: This is a 67-year-old gentleman with known COPD, known coronary artery d isease with end-stage cardiomyopathy, had a recent admission in 08/2017 for shortness of breath. He underwent AICD placement at that time. 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 Due to these conditions, his breathing worsened. He states he has had 3 days of worsening cough and shortness of breath. Last night, he had chest pain, which improved with nitroglycerin and presented to the emergency department. The patient is feeling some better no w after neb treatments. He states that he has a nebulizer at home, which he borrows from his nephew and uses about once a week. He is ruling out for an MT with no changes in his cardiac enzymes. Agree with admission for improvement of his breathing status and for social service evaluation. PAST MEDICAL HISTORY: 1. COPD is followed by Pulmonary. 2. Cardiomyopathy, status post AICD placement, followed by Dr. James. 3. Glaucoma. 4. Chronic respiratory failure. 5. Systolic congestive heart failure. 6. Major depression. 7. Chronic kidney disease, stage 3. 8. Hypertension. 9. Anemia of chronic disease. 10. Osteoarthritis. 11. Gastroesophageal reflux disease. MEDICATIONS: Include pantoprazole 40 mg daily, amiodarone 200 mg, trazodone 50 mg at bedtime p.r.n. sleep, K-Dur 20 mEq b.i.d., gabapentin 300 mg b.i.d., albuterol p.r.n., home oxygen at bedtime, carve dilol 6.25 mg b.i.d., Breo Ellipta 200/25 b.i.d., Lexapro 10 mg daily, hydroxyzine at bedtime p.r.n., furosemide 40 mg b.i.d., aspirin 81 mg daily. ALLERGIES: CODEINE. FAMILY HISTORY: Noncontributory. SOCIAL HISTORY: Remote smoking history. PAST SURGICAL HISTORY: Abscess with right hand repair due to osteomyelitis, had surgery 09/2016 at [facility], repeated cardiac catheterizations. REVIEW OF SYSTEMS: As per the history of present illness. General: He denies any recent fevers, ch ills, or recent illness. HEENT: Positive blindness in his right eye. Denies congestion. Denies he adache. Cardiac: As per the history of present illness. No palpitations. See last cardiac consult ation. Pulmonary: Positive cough, positive shortness of breath, no hemoptysis. Gastrointestinal: No nausea, vomiting, abdominal pain, melena, hematochezia. Genitourinary: History of ventral hernia , which causes some pain with coughing. Neurologic: No weakness, seizures, or syncope. PHYSICAL EXAMINATION: VITAL SIGNS: Temperature 98.5, pulse is 72, respirations 20, blood pressure 121/84, pulse ox is 100% on 2 liters nasal cannula. GENERAL: He is awake and alert with conversational dyspnea. NECK: Supple. Mucosa is moist. HEART: Regular rate and rhythm with 2/6 systolic ejection murmur. LUNGS: With decreased breath sounds. Positive expiratory wheezes, poor aeration. ABDOMEN: Soft, nontender. Positive ventral hernia with straining, but no rebound, no guarding. EXTREMITIES: No clubbing, cyanosis, or edema. A 2+ peripheral pulses. LABORATORY DATA: White blood cell count 4600, hemoglobin hematocrit 12.9 and 38.9 with macrocytic in dices, platelets of 198. Sodium 141, potassium 3.3, chloride 105, CO2 of 25, BUN and creatinine 14 a nd 1.26 with a GFR of 69, calcium of 8.7. Liver enzymes are normal. Troponin I 0.042, 0.041, 0.040. Chest x-ray revealed mild increased linear density in the right lung base. No other changes. ASSESSMENT AND PLAN: This is a 67-year-old gentleman with multiple medical problems, now with, 1. Exacerbation of his chronic obstructive pulmonary disease. We will continue nebulizer treatments . We will start IV steroids, oral antibiotics due to chronic obstructive pulmonary disease exacerbat ion. 2. Cardiomyopathy, stable. He ruled out for a myocardial infarction. It seems like his pains are m ore related to his lung disease due to worsening pain with cough and with position changes. We will continue amiodarone and aspirin. 3. Hypertension. We will continue his hypertensive. 4. Deep vein thrombosis prevention. We will start subcutaneous Lovenox. 5. Poor home conditions. I will consult case management for evaluation for home health. We will co nsider Adult Protective Services if necessary after their evaluation.
[2017-10-03] MEDS: Furosemide 40 MG TAB PO SCH (15:19)
[2017-10-03] MEDS: Mometasone/Formoterol 120 PUFF INHALER INH SCH (19:05)
[2017-10-03] MEDS: traZODone HCl 50 MG TAB PO SCH ×2 (20:53→20:57)
[2017-10-03] MEDS: Carvedilol 6.25 MG TAB PO SCH (20:54)
[2017-10-03] MEDS: Gabapentin 300 MG CAP PO SCH (20:54)
[2017-10-03] MEDS ORDERED: Furosemide 40 MG TAB PO SCH (21:00)
[2017-10-04 05:22] LABS: #Lymphocytes 0.4 thou/uL (1.20-3.40); #Monocytes 0.2 thou/uL (0.11-0.59); #Neutrophils 4.4 thou/uL (1.40-6.50); %Lymphocytes 7.8 % (21.0-51.0); %Neutrophils 88.1 % (42.0-75.0); Mean Corpuscular HGB CONC 31.7 g/dL (32.0-36.0); Mean Corpuscular Hemoglobin 31.1 pg (27.0-31.0); Mean Corpuscular Volume 98.2 fl (80.0-94.0); Mean Platelet Volume 9.2 fL (7.4-10.4); Platelet Count 188 thou/uL (130-400); RBC Distribution Width 12.3 % (11.5-14.5); Red Blood Cell (RBC) Count 3.87 mill/uL (4.70-6.10); White Blood Cell (WBC) Count 4.9 thou/uL (4.8-10.8)
[2017-10-04 05:45] LABS: ALT (SGPT) 19 U/L (8-55); AST (SGOT) 19 U/L (5-34); Albumin 3.3 g/dL (3.4-4.8); Alkaline Phosphatase 64 U/L (40-150); Anion Gap 13 mmol/L (10-20); BUN (Urea Nitrogen) 16 mg/dL (8.4-25.7); Bilirubin, Total 0.6 mg/dL (0.2-1.2); Calc. Creatinine Clearance 54 mL/min (70-130); Calcium 8.9 mg/dL (7.8-10.44); Carbon Dioxide 23 mmol/L (23-31); Chloride 102 mmol/L (98-107); Estimated GFR-MDRD 62; Globulin 2.9 g/dL (2.4-3.5); Glucose 311 mg/dL (80-115); Potassium 3.3 mmol/L (3.5-5.1); Protein, Total 6.2 g/dL (5.8-8.1); Sodium 135 mmol/L (136-145)
[2017-10-04] MEDS: Ferrous Sulfate 325 MG TAB PO SCH (07:40)
[2017-10-04] MEDS: Enoxaparin Sodium 40 MG/0.4 ML SYRINGE SC SCH (07:40)
[2017-10-04] MEDS: Aspirin 81 mg Enteric Coated Tablet PO SCH (07:40)
[2017-10-04] MEDS: Furosemide 40 MG TAB PO SCH ×2 (07:41→14:48)
[2017-10-04] MEDS: Amiodarone 200 MG TAB PO SCH (07:41)
[2017-10-04] MEDS: Carvedilol 6.25 MG TAB PO SCH ×2 (07:41→20:04)
[2017-10-04] MEDS: Atorvastatin Calcium 20 MG TAB PO SCH (07:42)
[2017-10-04] MEDS: Lisinopril 2.5 MG TAB PO SCH (07:42)
[2017-10-04] MEDS: Potassium Chloride 20 MEQ TAB PO SCH (07:42)
[2017-10-04] MEDS: Escitalopram Oxalate 10 mg Tablet PO SCH (07:42)
[2017-10-04] MEDS: Gabapentin 300 MG CAP PO SCH ×2 (07:42→20:04)
[2017-10-04] MEDS: Timolol 0.5% Ophth Soln 5 ml Bottle EA EYE SCH (07:50)
[2017-10-04] MEDS: Brimonidine Tartrate 0.2% Ophth Soln 5 ml Bottle EA EYE SCH (07:51)
[2017-10-04] MEDS: Mometasone/Formoterol 120 PUFF INHALER INH SCH ×2 (07:54→19:30)
[2017-10-04] MEDS ORDERED: BOT EA EYE SCH (09:00)
[2017-10-04] MEDS ORDERED: traZODone HCl 50 MG TAB PO SCH (09:00)
[2017-10-04] MEDS ORDERED: Ferrous Sulfate 325 MG TAB PO SCH (09:00)
[2017-10-04] MEDS ORDERED: DIFLUPREDNATE EA EYE SCH (09:00)
[2017-10-04] MEDS ORDERED: HumaLOG 300 UNITS/3 ML VIAL SC PRN (09:09)
--- NOTE | 2017-10-04 09:48 | PRG ---
DATE OF SERVICE: 10/04/2017 SUBJECTIVE: The patient has some improvement, but very little. He still continues to be short of br eath with walking to the bathroom and back. It takes him several minutes to catch his breath. He co mplains of cough, no fevers or chills. No nausea or vomiting. No longer has chest pain. He has fabiana e improvement with nebulizer treatments, but still does not have nebulizer at home. He is still conc erned about going home due to his living conditions. He states that he is not sure if the house is g oing to continue to stand. He is sleeping on the floor on blankets and carpets. States he has holes in his wall, awaiting Social Service Evaluation. PHYSICAL EXAMINATION: VITAL SIGNS: Temperature 98.2, pulse of 71, respirations 20, blood pressure 116/78, pulse ox 99% on 2 liters. GENERAL: He is awake and alert. Positive for conversational dyspnea. He is short of breath in his bed after walking to the bathroom and taking a shower. HEENT: Mucosa is moist. NECK: Supple. HEART: Distant. Regular rate and rhythm. LUNGS: With decreased breath sounds, prolonged inspiratory stage and shortened expirations, bilatera l wheezes, rare rhonchi. ABDOMEN: Flat, soft, nontender, nondistended. EXTREMITIES: No edema. LABORATORY DATA: Sodium 135, potassium 3.3, chloride 102, CO2 of 23, BUN and creatinine 16 and 1.38 with GFR of 62. Serum glucose was elevated at 311, again troponin I's are indeterminate. White bloo d cell count 4,900, hemoglobin and hematocrit 12.0 and 38 with macrocytic indices, platelets of 188. ASSESSMENT AND PLAN: 1. This is a 67-year-old gentleman with known severe chronic obstructive pulmonary disease, ischemic cardiomyopathy with decreased ejection fraction, admitted for chronic obstructive pulmonary disease exacerbation. 2. We will continue IV steroids, oral antibiotics, nebulizer treatments and oxygen therapy. I will consult Pulmonary for evaluation for further treatment. 3. Cardiomyopathy is stable status post automated implantable cardioverter-defibrillator placement. 4. Hypertension. We will continue medications and monitor. 5. Deep venous thrombosis prevention with subcutaneous Lovenox. 6. Anemia, chronic, microcytic. Continue to monitor. 7. Chronic kidney disease stage 2. We will monitor closely. 8. Disposition: Due to his poor home conditions and recurrent admissions, we will have case managem ent to do an evaluation and possible rehab placement versus home health. Consider Adult Protective S ervices if his living conditions are unsafe.
[2017-10-04] MEDS: predniSONE 20 MG TAB PO SCH (17:36)
--- NOTE | 2017-10-04 18:55 | CON ---
DATE OF CONSULTATION: 10/04/2017 Humberto Sandhu is a 67-year-old gentleman with severe COPD, congestive heart failure, recently had an AICD placed, and continues to smoke up to a half pack a day, presents with increased shortness of br eath. No chest pain, chills, sweats. Coughing up some relatively clear sputum. PAST MEDICAL HISTORY: Well and extensively outlined in his most recent hospital admission. Pertinent for CHF, pacemaker inserted and AICD, hypertension, high cholesterol, tobacco abuse, hypert ension, COPD, chronic bronchitis. Previous surgeries, recent AICD . MEDICATIONS: From home includes trazodone 50, hydroxyzine 25, potassium, Protonix, lisinopril, Levaq uin 500, gabapentin, Breo, Durezol eye drops for glaucoma, amiodarone 100. This admission, we started on steroids, Dulera, but no nebulizer treatments. ALLERGIES: He is allergic to CODEINE and NIACIN. Other additional previous surgery includes multiple surgeries on his eye. REVIEW OF SYSTEMS: Otherwise, extensive 10-point negative. Please note I reviewed his x-rays personally. PHYSICAL EXAMINATION: VITAL SIGNS: Sats 99 on 2 liters, respiratory rate 20, temperature 98, blood pressure 150/84. CHEST: Decreased breath sounds, no wheezing. CARDIAC: Normal S1 and S2, no gallops. ABDOMEN: Soft. No masses. LABORATORY DATA: Creatinine 1.38. X-ray shows no obvious infiltrates. White count 4000. IMPRESSION: 1. Chronic obstructive pulmonary disease excerebration with bronchitis. 2. Ongoing tobacco abuse. 3. Cardiomyopathy. 4. Legally blind. PLAN: I added Simona to his present treatment. Once again long-term counseling regarding his tobacco abuse issues. We will follow while in the hospital. This is a consultation note 70 minutes of which 50% was spent with direct patient care.
[2017-10-04] MEDS: traZODone HCl 50 MG TAB PO SCH (20:04)
[2017-10-05] MEDS: predniSONE 20 MG TAB PO SCH ×4 (00:42→18:19)
[2017-10-05 06:16] LABS: Anion Gap 16 mmol/L (10-20); BUN (Urea Nitrogen) 20 mg/dL (8.4-25.7); Calc. Creatinine Clearance 60 mL/min (70-130); Calcium 9.2 mg/dL (7.8-10.44); Carbon Dioxide 23 mmol/L (23-31); Chloride 104 mmol/L (98-107); Estimated GFR-MDRD 70; Glucose 140 mg/dL (80-115); Potassium 3.7 mmol/L (3.5-5.1); Sodium 139 mmol/L (136-145)
[2017-10-05] MEDS: Mometasone/Formoterol 120 PUFF INHALER INH SCH ×2 (07:07→18:29)
[2017-10-05] MEDS: Amiodarone 200 MG TAB PO SCH (08:10)
[2017-10-05] MEDS: Furosemide 40 MG TAB PO SCH ×2 (08:10→14:18)
[2017-10-05] MEDS: Escitalopram Oxalate 10 mg Tablet PO SCH (08:10)
[2017-10-05] MEDS: Atorvastatin Calcium 20 MG TAB PO SCH (08:10)
[2017-10-05] MEDS: Potassium Chloride 20 MEQ TAB PO SCH (08:10)
[2017-10-05] MEDS: Lisinopril 2.5 MG TAB PO SCH (08:12)
[2017-10-05] MEDS: Ferrous Sulfate 325 MG TAB PO SCH (08:13)
[2017-10-05] MEDS: Aspirin 81 mg Enteric Coated Tablet PO SCH (08:13)
[2017-10-05] MEDS: Carvedilol 6.25 MG TAB PO SCH ×2 (08:14→21:53)
[2017-10-05] MEDS: Timolol 0.5% Ophth Soln 5 ml Bottle EA EYE SCH (08:15)
[2017-10-05] MEDS: Enoxaparin Sodium 40 MG/0.4 ML SYRINGE SC SCH (08:15)
[2017-10-05] MEDS: Brimonidine Tartrate 0.2% Ophth Soln 5 ml Bottle EA EYE SCH (08:16)
[2017-10-05] MEDS: Gabapentin 300 MG CAP PO SCH ×2 (08:22→21:55)
--- NOTE | 2017-10-05 09:46 | PRG ---
DATE OF SERVICE: 10/05/2017 Humberto Sandhu is doing better. He is less short of breath, less coughing. PHYSICAL EXAMINATION: VITAL SIGNS: Blood pressure is 101/73, sats 96% on room air, respiration 24, temperature 98. CHEST: Chest revealed decreased breath sounds, no wheezing. CARDIAC: Normal S1-S2. No gallops. ABDOMEN: Soft, no masses. LABORATORY: Electrolytes are normal. IMPRESSION: 1. Congestive heart failure. 2. Chronic obstructive pulmonary disease exacerbation. 3. Ongoing tobacco abuse. PLAN: PT, nebs, diuretics. Supportive care. I will follow.
[2017-10-05] MEDS ORDERED: Acetaminophen 500 MG TAB PO PRN (17:46)
[2017-10-05] MEDS: traZODone HCl 50 MG TAB PO SCH (21:55)
[2017-10-06] MEDS: predniSONE 20 MG TAB PO SCH ×2 (00:05→05:36)
[2017-10-06] MEDS: Mometasone/Formoterol 120 PUFF INHALER INH SCH (07:10)
[2017-10-06] MEDS: Amiodarone 200 MG TAB PO SCH (08:11)
[2017-10-06] MEDS: Ferrous Sulfate 325 MG TAB PO SCH (08:11)
[2017-10-06] MEDS: Aspirin 81 mg Enteric Coated Tablet PO SCH (08:12)
[2017-10-06] MEDS: Brimonidine Tartrate 0.2% Ophth Soln 5 ml Bottle EA EYE SCH (08:12)
[2017-10-06] MEDS: Atorvastatin Calcium 20 MG TAB PO SCH (08:12)
[2017-10-06] MEDS: Carvedilol 6.25 MG TAB PO SCH (08:13)
[2017-10-06] MEDS: Furosemide 40 MG TAB PO SCH ×2 (08:14→14:43)
[2017-10-06] MEDS: Escitalopram Oxalate 10 mg Tablet PO SCH (08:14)
[2017-10-06] MEDS: Enoxaparin Sodium 40 MG/0.4 ML SYRINGE SC SCH (08:14)
[2017-10-06] MEDS: Potassium Chloride 20 MEQ TAB PO SCH (08:15)
[2017-10-06] MEDS: Gabapentin 300 MG CAP PO SCH (08:15)
[2017-10-06] MEDS: Lisinopril 2.5 MG TAB PO SCH (08:15)
[2017-10-06] MEDS: Timolol 0.5% Ophth Soln 5 ml Bottle EA EYE SCH (08:17)
--- NOTE | 2017-10-06 08:56 | PRG ---
DATE OF SERVICE: 10/05/2017 HISTORY OF PRESENT ILLNESS: The patient states he still has some chest tightness and some pain aroun d his pacemaker site and soreness. He reports he is breathing comfortably at rest on room air. Stil l slightly short of breath when up and about and has no new complaints. OBJECTIVE: VITAL SIGNS: Temperature of 97.9, pulse of 78, respiratory rate of 18, oxygen saturation of 97% on r oom air, and blood pressure of 109/82. LABORATORY DATA: Sodium 139, potassium of 3.7, CO2 of 23, creatinine of 1.25, and glucose of 114. PHYSICAL EXAMINATION: GENERAL: The patient is alert and oriented, in no acute distress. HEENT: Normocephalic, atraumatic. Extraocular movements are intact. Right pupil is opacified. NECK: Supple. HEART: Regular rate and rhythm. No murmurs are auscultated. LUNGS: End-expiratory wheezes bilaterally. No rubs or rhonchi. ABDOMEN: Soft, nontender, positive bowel sounds throughout. EXTREMITIES: Lower extremities without cyanosis or edema. NEUROLOGIC: The patient is alert and oriented x3. Normal speech. Moving all extremities. ASSESSMENT AND PLAN: Chronic obstructive pulmonary disease exacerbation, deconditioning, congestive heart failure, systolic, status post AICD placement. Continuing steroids, breathing treatments, and Levaquin. Continue patient's cardiac medications including Lipitor, baby aspirin, Lasix, potassium r eplacement, atenolol, and amiodarone. Plan to discontinue amiodarone approximately one month perico fr om AICD placement, which is coming quickly. Patient is compliant with his carvedilol outpatient. Frank cornejo with pending inpatient rehabilitation evaluation. Otherwise, possible home with home health is not accepted. Given patient reports of poor living conditions including roof and catherine issues, m ay consider Adult Protective Services consultation and the report. The patient was amicable to this, case management, following up with the patient in a.m. We will follow up the report and make an [place] Protective Services report not already done.
--- NOTE | 2017-10-06 10:12 | PRG ---
DATE OF SERVICE: 10/06/2017 This morning he is better. The patient said he is not ready to go home. PHYSICAL EXAMINATION: VITAL SIGNS: Stable. Blood pressure 113/78, sats 96% on room air, temperature 99. CHEST: No wheezing or crackles. HEART: Normal S1, S2. IMPRESSION: 1. Congestive heart failure. 2. Chronic obstructive pulmonary disease exacerbation, much improved. DISPOSITION: Home anytime. Pulmonary will follow at a distance.
[2017-10-06 14:42] VITALS: BP 123/87; TEMP 97.4
[2017-10-07] MEDS ORDERED: predniSONE 20 MG TAB PO SCH (09:00)
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
--- NOTE | 2017-10-24 21:16 | EKG ---
Test Reason : Blood Pressure : / mmHG Vent. Rate : 077 BPM Atrial Rate : 076 BPM P-R Int : 170 ms QRS Dur : 122 ms QT Int : 450 ms P-R-T Axes : 065 -50 002 degrees QTc Int : 509 ms Sinus rhythm Left axis deviation Septal infarct , age undetermined Non-specific intra-ventricular conduction delay Abnormal ECG Confirmed by ALISIA BAILEY, SHEY ([id number]), editorial manager NATHANIEL BUTCHER ([id number]) on 10/24/2017 9:15:50 PM Referred By: Confirmed By:SHEY CRUMP MD
== END 2017-10-06 16:35 | DRG 190 ==
LOC: ERS 20:56 → 2SW 22:30 → OBSVTOIN 10-03 09:47 → ONC 10-03 11:37
PROVIDERS: ADMIT Family Medicine; ATTEND Family Medicine
PROC: 3E0234Z Introduction of Serum, Toxoid and Vaccine into Muscle, Percutaneous Approach (ICD-10-PCS; principal; 2017-10-03)
DX: J44.1 Chronic obstructive pulmonary disease with (acute) exacerbation (principal); J96.20 Acute and chronic respiratory failure, unspecified whether with hypoxia or hypercapnia; I13.0 Hypertensive heart and chronic kidney disease with heart failure and stage 1 through stage 4 chronic kidney disease, or unspecified chronic kidney disease; I50.22 Chronic systolic (congestive) heart failure; D50.9 Iron deficiency anemia, unspecified; F17.210 Nicotine dependence, cigarettes, uncomplicated; D63.1 Anemia in chronic kidney disease; F32.9 Major depressive disorder, single episode, unspecified; I25.10 Atherosclerotic heart disease of native coronary artery without angina pectoris; I25.5 Ischemic cardiomyopathy; Z95.810 Presence of automatic (implantable) cardiac defibrillator; N18.3 Chronic kidney disease, stage 3 (moderate); K21.9 Gastro-esophageal reflux disease without esophagitis; Z59.1 Inadequate housing; H54.61 Unqualified visual loss, right eye, normal vision left eye; Z23 Encounter for immunization
CPT/HCPCS: 36415; 71045; 80048; 80053; 82553; 83735; 84484; 85025; 90471; 90670; 93005; 94640; 99406; G0009; G8978-GP-CI; G8979-GP-CI; G8980-GP-CI; G8987-GO-CJ; G8988-GO-CI; J1650; J2920; J7506; J7611; J7620

== ENCOUNTER 2017-11-03 13:34 | Emergency (ER) | payer MEDICARE, MEDICAID ==
[2017-11-03 14:36] LABS: Hemoglobin 13.4 g/dL (14.0-18.0); Mean Corpuscular HGB CONC 32.8 g/dL (32.0-36.0); Mean Corpuscular Hemoglobin 31.2 pg (27.0-31.0); Platelet Count 214 thou/uL (130-400); RBC Distribution Width 12.7 % (11.5-14.5); White Blood Cell (WBC) Count 6.2 thou/uL (4.8-10.8)
[2017-11-03] MEDS ORDERED: Morphine 4 MG/ML VIAL ONE (14:48)
[2017-11-03] MEDS ORDERED: Ondansetron ODT 4 MG TAB ONE (14:48)
[2017-11-03 14:54] LABS: Eosinophils 2 % (0-10); Lymphocytes 24 % (21-51); MDiff Complete? YES; Monocytes 6 % (0-10); Neutrophil 68 % (42-75); PLT Morphology Comment Appears Adequate
[2017-11-03 14:56] LABS: ALT (SGPT) 23 U/L (8-55); AST (SGOT) 23 U/L (5-34); Albumin 3.9 g/dL (3.4-4.8); Alkaline Phosphatase 80 U/L (40-150); Anion Gap 13 mmol/L (10-20); BUN (Urea Nitrogen) 17 mg/dL (8.4-25.7); Bilirubin, Total 0.9 mg/dL (0.2-1.2); CK (CPK) 51 U/L (30-200); Calc. Creatinine Clearance 0 mL/min (70-130); Calcium 9.6 mg/dL (7.8-10.44); Carbon Dioxide 26 mmol/L (23-31); Chloride 99 mmol/L (98-107); Estimated GFR-MDRD 73; Globulin 3.3 g/dL (2.4-3.5); Glucose 91 mg/dL (80-115); Lipase 94 U/L (8-78); Potassium 4.1 mmol/L (3.5-5.1); Protein, Total 7.2 g/dL (5.8-8.1); Sodium 134 mmol/L (136-145)
--- NOTE | 2017-11-03 14:59 | RAD ---
UPRIGHT PORTABLE CHEST 1 VIEW: Date: 11/03/17 HISTORY: 67-year-old male with history of dyspnea. COMPARISON: 10/02/17. FINDINGS: Left ICD. Monitor leads overlie the chest. Minimal cardiomegaly. Horizontal linear and parenchymal ch anges in the lung bases, stable from prior study. No confluent pneumonia, overt edema, or other acute process. IMPRESSION: Stable horizontal linear and parenchymal changes in the lung bases. Mild increased markings bilateral ly. Mild cardiomegaly. No significant new process. POS: CHRISTOPHER
[2017-11-03 15:07] LABS: Troponin I 0.016 ng/mL (< 0.028)
[2017-11-03] MEDS ORDERED: ISOVUE-370 76%-LOCM 1 ML ONE (16:12)
[2017-11-03] MEDS ORDERED: Iopamidol 370 76% 50 ML VIAL FS ONE (16:12)
[2017-11-03 17:22] LABS: Bilirubin Negative (Negative); Blood, Urine Negative (Negative); Clarity CLEAR (Clear); Glucose, Urine (Dipstick) Negative (Negative); Leukocyte Negative (Negative); Nitrite Negative (Negative); Protein, Urine (Dipstick) Negative (Neg-Trace); Specific Gravity, Urine 1.007 (1.002-1.036)
--- NOTE | 2017-11-03 20:09 | CT ---
CT OF THE ABDOMEN AND PELVIS WITH IV AND ENTERIC CONTRAST: 11/03/17 INDICATION: Middle abdominal pain for four days without nausea, vomiting and diarrhea. The patient has a history of being constipated. COMPARISON: None. FINDINGS: There is mild to moderate cardiomegaly. There is some subsegmental volume loss within both lower lobe s. There is partial visualization of pacemaker wires involving the right ventricle. There is some fatty infiltration of the liver. Respiratory motion artifact slightly limits evaluation of the upper abdomen. The adrenal glands and visualized kidneys appear within normal limits. There a re scattered vascular calcifications involving the abdominal and iliac vasculature. There is slight prominence of some loops of jejunum within the left upper quadrant which can be relat ed to enteric contrast filling; however, mild enteritis can have a similar appearance. There is a mil d amount of retained stool within the colon. No drainable fluid collection is evident. There is a nor mal appendix in the right lower quadrant of the abdomen. A small medicinal tablet is seen within the region of the cecum. The prostate is enlarged measuring 6.5 cm. There is dextroscoliosis of the lumbar spine. There is a bone island within the left aspect of L4. Th ere is partial sacralization of L5. 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 IMPRESSION: 1. Some slight distention of loops of small bowel within the left lower quadrant can reflect a m ild enteritis. No drainable fluid collection is evident. 2. Small amount of retained stool within the colon. 3. Mild fatty liver. 4. Prostate enlargement. 5. 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 POS: CHRISTOPHER
--- NOTE | 2017-11-05 19:58 | HP ---
HISTORY OF PRESENT ILLNESS: Humberto Sandhu is a 67-year-old male patient who moved here from [facility]. He has been sober for a year and a half with a past history of heroin addiction. He has s topped using drugs on his own. He had poor living conditions and was placed in [facility] recent admission. The patient has a cardiomyopathy, 15%-20% by recent echocardiogram, has been seei ng Dr. Forbes. The patient reports to have had a normal cardiac catheterization, but these records c annot be obtained from the [facility] as the patient does not remember which hospital this was perfo rmed. He presents with a supraumbilical mass that is bothersome to him. On exam, it seems to be a h ernia mass, but it is fixed and does not change with Valsalva. Recent CAT scan of the abdomen and pe lvis at [facility] two days ago was obtained and I do not appreciate a hernia mass on that C T scan. CAT scan was otherwise unremarkable. I have talked to Dr. Marilu Forbes who will see him in the office and obtain a cardiac stress test prior to undergoing exploration of his supraumbilical mi dline excising what is suspected to be a soft tissue mass, but repairing a small hernia hopefully und er IV sedation, local anesthesia as an outpatient. The patient has a history of reported CKD, but hi s renal function is normal on recent admission. The patient was escorted to Dr. Forbes's office to s chedule cardiac imaging preoperatively. PAST MEDICAL HISTORY: COPD; history of cardiomyopathy with AICD, followed by Dr. Marilu Forbes; deion estive heart failure, 15%-20% ejection fraction; hypertension; GERD; past history of drug abuse, sobe r for one and half years; history of V-tach nonsustained, amiodarone controlled; recently status post AICD lead replacement. TOBACCO: Half pack per day. ALLERGIES: CODEINE. MEDICATIONS: Furosemide 40 mg twice a day, Durezol one drop each eye daily, Combigan eyedrops b.i.d. , Lexapro 10 mg a day, ferrous sulfate 325 daily, Protonix 40 mg a day, aspirin 81 mg a day, atorvast atin 20 mg a day, lisinopril 2.5 mg daily, albuterol inhaler as needed, hydroxyzine, amiodarone 100 m g daily, carvedilol 6.25 mg b.i.d., Breo Ellipta 200/25 daily, gabapentin 300 mg b.i.d. REVIEW OF SYSTEMS: Ten-point noncontributory otherwise. The patient is followed by Dr. Rae. PHYSICAL EXAMINATION: VITAL SIGNS: Weight 168 pounds, height 73 inches, blood pressure 97/55, pulse 83, temperature 97 deg jon. HEAD, EARS, EYES, NOSE, AND THROAT: Unremarkable. LUNGS: Clear to auscultation. CARDIAC: Regular rate and rhythm without murmur or gallop. AICD, left chest. ABDOMEN: Soft, thin, nontender, no palpable mass except up from supraumbilical two fingerbreadths ab ove the umbilicus, is a soft tissue mass, it is slightly tender, it does not change with Valsalva sta nding. EXTREMITIES: Unremarkable. ASSESSMENT AND PLAN: 1. Soft tissue mass, supraumbilical. This is painful. He desires excision. We will obtain cardiac clearance. Once cardiac clearance is obtained, we will plan exploration, IV sedation, local anesthe ruchi, and hopefully general anesthetic will not be necessary, but we will await cardiac clearance. 2. Cardiomyopathy, 15%-20% ejection fraction, echocardiogram, 07/2017. I will await cardiac clearan ce from Dr. Forbes outpatient prior to initiating surgery treatment. 3. Nonsustained ventricular tachycardia, amiodarone control. 4. Automated implantable cardioverter defibrillator, left chest. 5. History of heroin addiction, avoid narcotics perioperatively.
--- NOTE | 2017-12-12 22:13 | EKG ---
Test Reason : E Blood Pressure : / mmHG Vent. Rate : 070 BPM Atrial Rate : 070 BPM P-R Int : 172 ms QRS Dur : 118 ms QT Int : 440 ms P-R-T Axes : 107 -46 056 degrees QTc Int : 475 ms Normal sinus rhythm Left axis deviation Pulmonary disease pattern Septal infarct , age undetermined Abnormal ECG Confirmed by PATRICK SANTOS D.O. ([id number]), material expeditor NATHANIEL BUTCHER ([id number]) on 12/12/2017 10:13:15 PM Referred By: VIRAJ Confirmed By:PATRICK SANTOS D.O.
== END 2017-11-03 19:59 | disposition home or self-care (01) ==
LOC: ERS 13:34
DX: K59.00 Constipation, unspecified (principal); E78.5 Hyperlipidemia, unspecified; I10 Essential (primary) hypertension; J44.9 Chronic obstructive pulmonary disease, unspecified; F41.9 Anxiety disorder, unspecified; F17.210 Nicotine dependence, cigarettes, uncomplicated; Z79.899 Other long term (current) drug therapy; Z79.891 Long term (current) use of opiate analgesic
CPT/HCPCS: 36415; 71045; 74177; 80053; 81003; 82550; 82553; 83690; 83880; 84484; 85025; 93005; 96374; J2270; Q0162

== ENCOUNTER 2018-05-14 06:36 | Day surgery (SDC) | payer MEDICARE, MEDICAID ==
[2018-05-13 12:43] VITALS: BMI 23.5
[~2018-05-14 06:36] MED LIST: Prevnar 13-Val Conj/PF 0.5 ML SYRINGE IM ONE
[2018-05-14 08:18] VITALS: BP 99/77; TEMP 97
[2018-05-14] MEDS ORDERED: Iopamidol-M 300 61% 15 ML VIAL ONE (10:46)
--- NOTE | 2018-05-14 12:27 | RAD ---
CERVICAL MYELOGRAM: Date: 05/14/18 INDICATION: Cervical pain. Prior cervical fusion procedure at C5-6. FINDINGS: Entry Level Management views show anterior plate and screws transfixing C5-6 with interbody fusion at this level. Dege nerative changes are prominent at C3-4 and C4-5. 15 mL Isovue-300M was injected into the spinal canal through a 22 gauge spinal needle at the L1 level under fluoroscopic observation. Patient was placed head-down and contrast flowed into the cervical c anal and confirmed with fluoroscopy. See post myelogram CT cervical spine for further characterization. EXPOSURE: Fluoro time: 3.4 minutes. 812 mGy*cm^2. PROCEDURE NOTE: The patient was placed prone on the fluoro table. The lower back was prepped and draped in a sterile manner. The patient has degenerative change in the lumbar spine with rotary scoliosis. Oblique positi on was necessary to straighten the vertebral bodies. The L1 level was chosen for puncture. Local anes thesia was administered with lidocaine and bicarb. A 22 gauge spinal needle was used to enter the spi nal canal using a paramidline approach from the left under fluoroscopic guidance. Clear CSF was recov ered. Isovue-300M was then injected under fluoroscopic observation. Patient was tilted head-down to a llow contrast to flow into the cervical spinal canal. The patient tolerated the procedure well and there were no problems or complications. The patient was sent to CT following the procedure for post myelogram CT cervical spine. POS: [facility]
--- NOTE | 2018-05-14 12:32 | CT ---
POST MYELOGRAM CT CERVICAL SPINE: Technique: Multiple axial tomograms were obtained though the cervical spine following a cervical myel ogram procedure. Indications: Cervical pain and radiculopathy. Post fusion procedure at C5-6 with degenerative changes in the cervical spine noted on wood heel attacher films. FINDINGS: Cervical vertebrae show moderate degenerative change. There is loss of disc space at C3-4 and C4-5 wi th anterior osteophytes. Slight anterolisthesis at C3-4 measured at approximately 3 mm. Minimal poste rior listhesis at C4-5 measured at 1-2 mm. Prior anterior fusion procedure at C5-6 with anterior plate and screws and interbody fusion. C2-3: Posterior disc bulge and spondylosis flattens the thecal sac and efface the anterior subarachno id space. No significant cord impingement. C3-4: Mild anterolisthesis as noted above with posterior disc bulge and spondylosis flattening the th ecal sac and effacing the anterior subarachnoid space. Mild foraminal stenosis secondary to facet and uncinate hypertrophy. C4-5: Posterior disc bulge and spondylosis is present. Diffuse disc bulge is slightly more pronounced paracentrally to the right and does impinge on the anterior cord producing slight flattening of the cord. Mild bilateral foraminal narrowing secondary to uncinate hypertrophy. C5-6: Posterior fusion. There is prominent bony spondylosis at C5-6 which impinges on the anterior co rd producing indentation of the anterior cord centrally. No significant foraminal stenosis. C6-7: Disc bulge and spondylosis impinge on the anterior cord. No significant foraminal stenosis. IMPRESSION: Post-operative and degenerative changes of the cervical spine. Disc bulge and spondolytic changes are prominent at C3-4, C4-5, and C6-7. There is impingement on the cord with foraminal stenosis as descr ibed above. Spondylosis at C5-6 at the site of prior fusion impinges on the cord, best appreciated o n axial images. POS: [facility]
== END 2018-05-14 10:10 | disposition home or self-care (01) ==
LOC: RAD 06:36
PROVIDERS: ATTEND Neurological Surgery
PROC: B01B1ZZ Fluoroscopy of Spinal Cord using Low Osmolar Contrast (ICD-10-PCS; principal; 2018-05-14)
DX: M47.22 Other spondylosis with radiculopathy, cervical region (principal); M50.11 Cervical disc disorder with radiculopathy, high cervical region; M48.02 Spinal stenosis, cervical region; M25.78 Osteophyte, vertebrae; J44.9 Chronic obstructive pulmonary disease, unspecified; K21.9 Gastro-esophageal reflux disease without esophagitis; M19.90 Unspecified osteoarthritis, unspecified site; F33.9 Major depressive disorder, recurrent, unspecified; E78.5 Hyperlipidemia, unspecified; G47.00 Insomnia, unspecified; F17.200 Nicotine dependence, unspecified, uncomplicated; I11.0 Hypertensive heart disease with heart failure; I50.9 Heart failure, unspecified; Z79.82 Long term (current) use of aspirin; Z79.899 Other long term (current) drug therapy; Z88.5 Allergy status to narcotic agent; Z98.1 Arthrodesis status; Z95.810 Presence of automatic (implantable) cardiac defibrillator
CPT/HCPCS: 62302; 72126

== ENCOUNTER 2018-06-18 21:17 | Inpatient (IN) | payer MEDICARE, MEDICAID ==
[2018-06-18] MEDS ORDERED: Albuterol Sulfate 2.5 mg/3 ml Neb ONE (22:04)
[2018-06-18 23:25] LABS: #Eosinphils 0.1 thou/uL (0.0-0.7); #Lymphocytes 1.2 thou/uL (1.20-3.40); #Monocytes 0.4 thou/uL (0.11-0.59); #Neutrophils 4.3 thou/uL (1.40-6.50); %Basophils 0.8 % (0.0-1.0); %Eosinophils 1.7 % (0.0-10.0); %Lymphocytes 19.8 % (21.0-51.0); %Monocytes 5.9 % (0.0-10.0); %Neutrophils 71.8 % (42.0-75.0); Hemoglobin 14.9 g/dL (14.0-18.0); Mean Corpuscular HGB CONC 34.9 g/dL (32.0-36.0); Mean Corpuscular Hemoglobin 33.9 pg (27.0-31.0); Mean Platelet Volume 9.5 fL (7.4-10.4); Platelet Count 131 thou/uL (130-400); RBC Distribution Width 12.4 % (11.5-14.5); Red Blood Cell (RBC) Count 4.39 mill/uL (4.70-6.10); White Blood Cell (WBC) Count 5.9 thou/uL (4.8-10.8)
--- NOTE | 2018-06-18 23:28 | RAD ---
SINGLE VIEW OF THE CHEST: 06/18/18 COMPARISON: 11/03/17 HISTORY: Shortness of breath that began yesterday. FINDINGS: Single view of the chest shows an enlarged cardiomediastinal silhouette. The pacemaker is unchanged i n position. There is no evidence of consolidation, mass, or pleural effusion. Hardware is seen in th e cervical spine. IMPRESSION: Cardiomegaly without evidence of acute cardiopulmonary disease. POS: H
[2018-06-18 23:47] LABS: ALT (SGPT) 28 U/L (8-55); AST (SGOT) 37 U/L (5-34); Albumin 4.2 g/dL (3.4-4.8); Alkaline Phosphatase 74 U/L (40-150); Anion Gap 14 mmol/L (10-20); BUN (Urea Nitrogen) 20 mg/dL (8.4-25.7); Bilirubin, Total 1.5 mg/dL (0.2-1.2); CK (CPK) 286 U/L (30-200); Calc. Creatinine Clearance 0 mL/min (70-130); Calcium 9.3 mg/dL (7.8-10.44); Carbon Dioxide 23 mmol/L (23-31); Chloride 105 mmol/L (98-107); Estimated GFR-MDRD 58; Globulin 3.7 g/dL (2.4-3.5); Glucose 108 mg/dL (80-115); Potassium 4.4 mmol/L (3.5-5.1); Protein, Total 7.9 g/dL (5.8-8.1); Sodium 138 mmol/L (136-145)
[2018-06-18 23:51] LABS: CKMB 4.2 ng/mL (0-6.6)
[2018-06-19] LABS: Troponin I 0.033 ng/mL (< 0.028)
[2018-06-19 03:34] LABS: Troponin I 0.025 ng/mL (< 0.028)
[2018-06-19 05:11] VITALS: BMI 23.6
[2018-06-19 07:11] LABS: Troponin I 0.032 ng/mL (< 0.028)
[2018-06-19 11:01] VITALS: BP 111/83; TEMP 98
--- NOTE | 2018-06-19 18:30 | HP ---
CHIEF COMPLAINT: Shortness of breath. HISTORY OF PRESENT ILLNESS: This is a 68-year-old black male patient of Dr. Sid Rae, who came to the emergency room in COPD exacerbation. Emergency room doctor noted that the patient had not been able to get his nebulizer medicines that he was prescribed by Dr. Rae, and when he went into exacerbation, all he had was an albuterol metered-dose inhaler and was not able to get good response from that. In the emergency room, he underwent several nebs and IV Solu-Medrol and they wanted him admitted for closer observation overnight. PAST MEDICAL HISTORY: Positive for COPD, hypertension, and systolic congestive heart failure. He is on home oxygen as needed. He has GERD and osteoarthritis. He has had severe depression in the past. He has chronic kidney disease, stage 3. He has a history of pupil abnormality of his right eye. He is also a recovered addict of multiple drugs including cocaine. PAST SURGICAL HISTORY: He had a neck surgery by Dr. Browne. He has had a right wrist surgery. He also had an AICD placed in July of this last year by Dr. Forbes. MEDICATIONS: 1. He is on carvedilol 6.25 mg twice a day. 2. Lasix 40 mg twice a day. 3. Potassium 20 mEq daily. 4. He takes tramadol 50 mg q.6 hours p.r.n. 5. He is on a nasal spray of fluticasone daily. 6. He is on ferrous sulphate 325 mg daily. 7. He is on Durezol 0.5% eye drop to his left eye twice a day. 8. He is on Travatan eye drop to left eye once a day. 9. He is on brimonidine eye drop to the left eye three times a day. 10. He is on Protonix 40 mg orally daily. 11. He is on gabapentin 300 mg twice a day. 12. He is on Lexapro 10 mg daily. 13. He is on hydroxyzine 25 mg twice a day. 14. He is on Lipitor 20 mg once a day. 15. He is on amiodarone 100 mg daily. SOCIAL HISTORY: He lives alone. Currently, not . He used to be in [employer] business in [place] and has since retried from that. FAMILY HISTORY: Relatively unknown. Both parents are , and he does not know of any diseases that they might have had. He does have siblings with hypertension, some heart disease, and one had a stroke. REVIEW OF SYSTEMS: Upon arriving to the hospital, he was short of breath, but did not have any fever, chills, or constipation. Vision is stable for him. No trouble chewing or swallowing. Denies any hemoptysis, just a terrible cough and feeling like he could not catch his breath. He denies any nausea or vomiting. No hematemesis. No melena. Denies any changes in bowel or bladder habits. Denies any abdominal pain. Denies any dysuria or hematuria. Denies any paresis or paresthesias. Denies any feelings of depression or anxiety. No suicidal or homicidal ideations. He denies any auditory or visual hallucinations. PHYSICAL EXAMINATION: VITAL SIGNS: On arrival in the ER, temperature 97.8, pulse 69, respirations 18, and blood pressure is 114/71. GENERAL: He is currently in no acute distress, sitting on the edge of the bed and walking around the room without any difficulty. Talking in full sentences. No respiratory difficulty. HEENT: Cranium is normocephalic and atraumatic. The right eye is clouded over, nonfunctional. Left eye pupil is reactive. Sclerae are clear, anicteric. Mucosa is pink and moist. NECK: Supple. No JVD. No bruits. No thyromegaly. Slightly decreased range of motion of the cervical spine. LUNGS: Show minimal wheezing, but good ventilatory effort. No rales or rhonchi. HEART: S1 and S2 with no rubs, murmurs, or gallops. ABDOMEN: Soft, nontender, and nondistended. No hepatosplenomegaly. Bowel sounds are hypoactive. EXTREMITIES: Show good palpable pulses in all four extremities. There is no paresis or paresthesias. Able to move all extremities easily. He does walk with a cane for a slight muscle weakness in, I believe, his right lower extremity. NEUROLOGIC: Other than the vision in the right eye and the paraesthesia in his right leg, he is grossly intact cranial nerves 2 through 12. LABORATORY DATA: His lab work on admission, white count was normal at 5.9, hemoglobin 14.9, hematocrit 42.5, and platelets are 131. Chemistries showed a sodium of 138, potassium 4.4, chloride 105, bicarbonate 23, BUN 20, creatinine 1.46. His glucose is only 108. AST is 137, ALT is 28. Creatine kinase slightly elevated at 286. Troponin was initially 0.03, second one was 0.025, and next one was 0.03. His beta natriuretic peptide is elevated at 1911, but his recent one just weeks ago was over 2000. ADMISSION DIAGNOSES: Chronic obstructive pulmonary disease exacerbation with known congestive heart failure, hypertension, hyperlipidemia, and chronic renal disease. PLAN: Plan is to admit him, use nebs throughout the course of the night and send him home quickly when he is able. Job ID: [id number]
--- NOTE | 2018-06-20 04:39 | DIS ---
DATE OF ADMISSION: 06/19/2018 DATE OF DISCHARGE: 06/19/2018 ADMIT DIAGNOSIS: Chronic obstructive pulmonary disease exacerbation. DISCHARGE DIAGNOSIS: Chronic obstructive pulmonary disease exacerbation. HOSPITAL COURSE: The patient is a 68-year-old black male, patient of Dr. Sid Rae, who came into the emergency with respiratory distress and was given multiple neb treatments and Solu-Medrol IV, was found to be much improved, but wanted to hold overnight from the ER doctor. They saw that his BNP was elevated, but it has actually improved from what it had been in the past recently, so came back to 1900, but it was 2100 few weeks or months prior. At time of discharge, the patient is no longer in any respiratory distress, breathing easily. He did state that the prescription that Dr. Rae had sent for him earlier in the week to the [facility], he could not pickup for some reason, he gave a couple of reasons; one being cost and the other one being [facility] mentioned that their machine was down, I am not sure what the specifics are of that, so I resent his prescription for the DuoNebs to the [facility] and he is informed of that. The patient will resume all his home medications and he will follow up with Dr. Rae early this week as he has an appointment already set to see him on 06/24. Job ID: [id number]
[2018-06-20] MEDS ORDERED: Prevnar 13-Val Conj/PF 0.5 ML SYRINGE IM ONE (09:00)
== END 2018-06-19 11:53 | disposition home or self-care (01) | DRG 191 ==
LOC: ERS 21:17 → ERHOLD 06-19 01:06 → IMCU/EMU 06-19 05:09
PROVIDERS: ADMIT Family Medicine; ATTEND Family Medicine
DX: J44.1 Chronic obstructive pulmonary disease with (acute) exacerbation (principal); I50.22 Chronic systolic (congestive) heart failure; I13.0 Hypertensive heart and chronic kidney disease with heart failure and stage 1 through stage 4 chronic kidney disease, or unspecified chronic kidney disease; J44.9 Chronic obstructive pulmonary disease, unspecified; I10 Essential (primary) hypertension; N18.3 Chronic kidney disease, stage 3 (moderate); M19.90 Unspecified osteoarthritis, unspecified site; Z99.81 Dependence on supplemental oxygen; F14.10 Cocaine abuse, uncomplicated; Z95.810 Presence of automatic (implantable) cardiac defibrillator; Z79.899 Other long term (current) drug therapy; Z79.82 Long term (current) use of aspirin; Z79.51 Long term (current) use of inhaled steroids
CPT/HCPCS: 36415; 71045; 80053; 82553; 83880; 84484; 85025; 93005; 94644; J7611

== ENCOUNTER 2018-07-15 21:52 | Observation (INO) | payer MEDICARE, MEDICAID ==
[2018-07-15] MEDS ORDERED: methylPREDNISolone Sod Succ/PF 125 MG/2 ML VIAL ONE (22:36)
--- NOTE | 2018-07-15 22:36 | RAD ---
SINGLE VIEW OF THE CHEST: 07/15/18 COMPARISON: 06/18/18 HISTORY: Dyspnea and chest pain. FINDINGS: Single view of the chest shows an enlarged but stable cardiomediastinal silhouette. The pacemaker is unchanged in position. There is no evidence of consolidation, mass, or pleural effusion. Hardware is seen in the cervical spine. IMPRESSION: No evidence of acute cardiopulmonary disease. POS: [facility]
[2018-07-15 23:15] LABS: #Eosinphils 0.1 thou/uL (0.0-0.7); #Lymphocytes 1.8 thou/uL (1.20-3.40); #Monocytes 0.9 thou/uL (0.11-0.59); #Neutrophils 5.3 thou/uL (1.40-6.50); %Basophils 0.6 % (0.0-1.0); %Eosinophils 1.1 % (0.0-10.0); %Lymphocytes 21.8 % (21.0-51.0); %Monocytes 10.3 % (0.0-10.0); %Neutrophils 65.7 % (42.0-75.0); Hemoglobin 14.7 g/dL (14.0-18.0); Mean Corpuscular HGB CONC 34.2 g/dL (32.0-36.0); Mean Corpuscular Hemoglobin 32.2 pg (27.0-31.0); Mean Corpuscular Volume 94.2 fL (78.0-98.0); Mean Platelet Volume 10.4 fL (7.4-10.4); Platelet Count 131 thou/uL (130-400); RBC Distribution Width 11.6 % (11.5-14.5); Red Blood Cell (RBC) Count 4.56 mill/uL (4.70-6.10)
[2018-07-15 23:20] LABS: ALT (SGPT) 31 U/L (8-55); AST (SGOT) 33 U/L (5-34); Albumin 4.1 g/dL (3.4-4.8); Alkaline Phosphatase 72 U/L (40-150); Anion Gap 12 mmol/L (10-20); BUN (Urea Nitrogen) 23 mg/dL (8.4-25.7); Bilirubin, Total 1.3 mg/dL (0.2-1.2); Calc. Creatinine Clearance 0 mL/min (70-130); Carbon Dioxide 25 mmol/L (23-31); Chloride 104 mmol/L (98-107); Estimated GFR-MDRD 50; Globulin 3.5 g/dL (2.4-3.5); Glucose 89 mg/dL (80-115); Potassium 3.4 mmol/L (3.5-5.1); Protein, Total 7.6 g/dL (5.8-8.1); Sodium 138 mmol/L (136-145)
[2018-07-15 23:40] LABS: CKMB 2.8 ng/mL (0-6.6)
[2018-07-16 02:31] LABS: Troponin I 0.041 ng/mL (< 0.028)
[2018-07-16 05:25] LABS: Troponin I 0.042 ng/mL (< 0.028)
[2018-07-16] MEDS ORDERED: Acetaminophen 500 MG TAB PO PRN (08:28)
[2018-07-16] MEDS ORDERED: hydrOXYzine 25 MG TAB PO PRN (08:33)
[2018-07-16] MEDS ORDERED: TRAVOPROST OP SCH (09:00)
[2018-07-16] MEDS: Ipratropium Bromide 2.5 ml Neb NEB SCH ×3 (11:02→23:21)
[2018-07-16] MEDS: Atropine Sulfate 1% Ophth Soln 5 ml Bottle EA EYE SCH ×4 (11:54→21:46)
[2018-07-16] MEDS ORDERED: predniSONE 20 MG TAB ONE (12:01)
[2018-07-16] MEDS: Amiodarone 200 MG TAB PO SCH (12:12)
[2018-07-16] MEDS: Atorvastatin Calcium 20 MG TAB PO SCH (12:12)
[2018-07-16] MEDS: Carvedilol 6.25 MG TAB PO SCH ×2 (12:13→21:44)
[2018-07-16] MEDS: Brimonidine Tartrate 0.2% Ophth Soln 5 ml Bottle EA EYE SCH (12:13)
[2018-07-16] MEDS: cefTRIAXone\\ROCEPHIN 2 GM in Sodium Chloride 0.9% 100 ML IVPB SCH (12:14)
[2018-07-16] MEDS: Ferrous Sulfate 325 MG TAB PO SCH (12:14)
--- NOTE | 2018-07-16 12:14 | HP ---
PRIMARY CARE PHYSICIAN: The patient's PCP is myself, Dr. Sid Rae. CHIEF COMPLAINT: Shortness of breath and weakness. HISTORY OF PRESENT ILLNESS: The patient lives at [facility] following discharge from [facility]. The patient states he has been out of his Lasix for approximately the last week and is complaining that his fellow residents are not sharing their Lasix, unclear why staff have not helped him facilitate refills. The patient's last three hospital admissions have all been secondary to the patient's inability to get medications at home. The patient has a difficult social situation as he had falling out with his relatives. Interestingly, the patient had ran away from [facility], where additional relatives live, the day before he was supposed to have his AICD placed approximately a couple years ago and established with myself. The patient finally did have AICD placed earlier this year, but has had multiple admissions secondary to medication cessation since he has been discharged from half-way. The patient then had an Adult Protective Services consultation prior to being placed in [facility] given his living situation with poor living conditions such as open breeze to outside, where his landlord did not fix that. He states that several family members have since moved into the room that he was in and have also struggled with respiratory status. At this point in time, the patient feels more comfortable following IV Solu-Medrol as well as breathing treatments. No note of Lasix being given. He was given an 81 mg of aspirin in the emergency department. The patient has not transitioned to floor yet. Review of past medical, social, and surgical history; ALLERGIES: INCLUDE CODEINE AND NIACIN. PAST MEDICAL HISTORY: The patient has COPD, hypertension, GERD, osteoarthritis, seasonal allergies, recurrent major depression, history of anemia secondary to chronic disease, hyperlipidemia, on home oxygen therapy p.r.n. at night, chronic pain. 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 MEDICATIONS: Include; 1. Albuterol sulfate rescue inhaler two puffs p.r.n. q.6 hours for cough and wheeze. 2. Incruse Ellipta one puff once daily. 3. Breo Ellipta one puff daily, high dose 200-25 mcg. 4. Aspirin 81 mg enteric-coated. 5. Amiodarone 100 mg once daily. 6. Pantoprazole 40 mg once daily. 7. Escitalopram 10 mg once daily. 8. Tessalon Perles 100 mg p.r.n. for cough. 9. Spironolactone 25 mg once daily. 10. Atorvastatin 20 mg once daily. 11. Potassium chloride 10 mEq once daily. 12. Carvedilol 6.25 mg twice daily. 13. Lasix 40 mg 1.5 tablets twice daily, total of 60 mg per dose. 14. Gabapentin 300 mg twice daily. 15. Hydroxyzine 25 mg p.r.n. for anxiety, panic, and sleep insomnia. 16. The patient has DuoNebs q.6 hours p.r.n. for exacerbation of cough and wheeze. PAST SURGICAL HISTORY: The patient has had prior neck surgery, prior hand surgery for osteomyelitis of right hand, ICD placement in July of 2017. SOCIAL HISTORY: The patient is currently not a smoker, living at [facility] with poor family support. LABORATORY DATA: Review of laboratory work; white blood cell count of 8.0, hemoglobin 14.7, platelet count 131. Sodium 138, potassium 3.4, chloride 104, creatinine of 1.66, estimated GFR of 50, calcium of 9.0, T bilirubin of 1.3, AST of 33, ALT of 31, BNP of 1397, albumin 4.1, troponins of 0.04, 0.04, 0.04 x3. REVIEW OF SYSTEMS: The patient denies any current chest pain at bedside. He is not short of breath on room air. He states he does have chills and some baseline muscle and joint pain. Denies any fevers. Reports positive for cough and wheeze, worsening. Denies any lower extremity edema. PHYSICAL EXAMINATION: VITAL SIGNS: On review of vital signs, not available in emergency department. GENERAL: The patient is alert and oriented, in no acute distress. HEENT: Head is normocephalic and atraumatic. Extraocular movements are intact. Right pupil is opacified. No nasal cannula in place. The patient is comfortable breathing. No retractions. HEART: Regular rate and rhythm. No murmurs auscultated. LUNGS: Right lower base with crackles to rhonchi. Left, clear. The patient is laying on his right side at the time of exam. ABDOMEN: Soft and nontender. Positive bowel sounds throughout. EXTREMITIES: Lower extremities without cyanosis or edema. The patient is alert and oriented x3. No focal deficits. Speech is normal. ASSESSMENT AND PLAN: Chronic obstructive pulmonary disease and congestive heart failure exacerbation. We will restart the patient's Lasix. Agree with a steroid burst. We will cover with p.r.n. and scheduled breathing treatments as well as antibiotic. We will attempt to contact [facility] with Case Management's help to see why the patient is not getting his refills and bouncing back to the emergency department and admission. We have struggled with this patient over the last three months with his refills since discharge from [facility]. The patient stabilizes very quickly; however, I do recognize the patient's intermediate troponin, however, given his severely reduced ejection fraction requiring automated implantable cardioverter-defibrillator placement and his chronic kidney disease stage 3, this is likely his chronic baseline strain. I will continue to follow however. Job ID: [id number]
[2018-07-16] MEDS: predniSONE 20 MG TAB PO SCH (12:15)
[2018-07-16] MEDS: Spironolactone 25 MG TAB PO SCH (12:15)
[2018-07-16] MEDS: Finasteride 5 MG TAB PO SCH (12:15)
[2018-07-16] MEDS: Gabapentin 300 MG CAP PO SCH ×2 (12:15→21:44)
[2018-07-16] MEDS: Latanoprost 0.005% Ophth Soln 2.5 ml Bottle EA EYE SCH (12:15)
[2018-07-16] MEDS: Timolol 0.5% Ophth Soln 5 ml Bottle EA EYE SCH (12:15)
[2018-07-16 14:25] LABS: Troponin I 0.023 ng/mL (< 0.028)
[2018-07-16 15:07] VITALS: BMI 23.8
[2018-07-16] MEDS: Furosemide 40 MG/4 ML VIAL SLOW IVP SCH ×2 (15:42→15:43)
[2018-07-16] MEDS: Azithromycin 500 MG in Sodium Chloride 0.9% 250 ML 250 ML IVPB SCH (15:44)
[2018-07-16] MEDS: Mometasone/Formoterol 120 PUFF INHALER INH SCH (19:12)
[2018-07-17 05:13] LABS: #Lymphocytes 0.9 thou/uL (1.20-3.40); #Monocytes 0.8 thou/uL (0.11-0.59); #Neutrophils 10.6 thou/uL (1.40-6.50); %Basophils 0.1 % (0.0-1.0); %Eosinophils 0.2 % (0.0-10.0); %Lymphocytes 7.3 % (21.0-51.0); %Monocytes 6.7 % (0.0-10.0); %Neutrophils 85.8 % (42.0-75.0); Hemoglobin 13.6 g/dL (14.0-18.0); Mean Corpuscular HGB CONC 33.6 g/dL (32.0-36.0); Mean Corpuscular Hemoglobin 32.1 pg (27.0-31.0); Mean Corpuscular Volume 95.3 fL (78.0-98.0); Mean Platelet Volume 9.8 fL (7.4-10.4); Platelet Count 144 thou/uL (130-400); RBC Distribution Width 11.7 % (11.5-14.5); Red Blood Cell (RBC) Count 4.25 mill/uL (4.70-6.10); White Blood Cell (WBC) Count 12.4 thou/uL (4.8-10.8)
[2018-07-17 05:47] LABS: ALT (SGPT) 25 U/L (8-55); AST (SGOT) 20 U/L (5-34); Albumin 3.5 g/dL (3.4-4.8); Alkaline Phosphatase 66 U/L (40-150); Anion Gap 14 mmol/L (10-20); BUN (Urea Nitrogen) 28 mg/dL (8.4-25.7); Bilirubin, Total 0.7 mg/dL (0.2-1.2); Calc. Creatinine Clearance 58 mL/min (70-130); Carbon Dioxide 22 mmol/L (23-31); Chloride 104 mmol/L (98-107); Estimated GFR-MDRD 60; Globulin 3.1 g/dL (2.4-3.5); Glucose 154 mg/dL (80-115); Potassium 3.9 mmol/L (3.5-5.1); Protein, Total 6.6 g/dL (5.8-8.1); Sodium 136 mmol/L (136-145)
[2018-07-17] MEDS: Furosemide 40 MG/4 ML VIAL SLOW IVP SCH ×2 (06:19→15:05)
[2018-07-17] MEDS ORDERED: Spiriva 18 MCG CAP (Box of 5 Caps) INH SCH (07:00)
[2018-07-17] MEDS: Ipratropium Bromide 2.5 ml Neb NEB SCH ×3 (07:22→19:46)
[2018-07-17] MEDS: Mometasone/Formoterol 120 PUFF INHALER INH SCH ×2 (07:30→19:46)
[2018-07-17] MEDS: cefTRIAXone\\ROCEPHIN 2 GM in Sodium Chloride 0.9% 100 ML IVPB SCH (09:15)
[2018-07-17] MEDS: Finasteride 5 MG TAB PO SCH (09:28)
[2018-07-17] MEDS: predniSONE 20 MG TAB PO SCH (09:28)
[2018-07-17] MEDS: Amiodarone 200 MG TAB PO SCH (09:29)
[2018-07-17] MEDS: Atorvastatin Calcium 20 MG TAB PO SCH (09:29)
[2018-07-17] MEDS: Gabapentin 300 MG CAP PO SCH ×2 (09:29→20:23)
[2018-07-17] MEDS: Potassium Chloride 10 MEQ TAB PO SCH (09:29)
[2018-07-17] MEDS: Spironolactone 25 MG TAB PO SCH (09:29)
[2018-07-17] MEDS: Carvedilol 6.25 MG TAB PO SCH ×2 (09:30→20:23)
[2018-07-17] MEDS: Ferrous Sulfate 325 MG TAB PO SCH (09:30)
[2018-07-17] MEDS: Timolol 0.5% Ophth Soln 5 ml Bottle EA EYE SCH (09:31)
[2018-07-17] MEDS: Brimonidine Tartrate 0.2% Ophth Soln 5 ml Bottle EA EYE SCH (09:31)
[2018-07-17] MEDS: Latanoprost 0.005% Ophth Soln 2.5 ml Bottle EA EYE SCH (09:32)
[2018-07-17] MEDS: Atropine Sulfate 1% Ophth Soln 5 ml Bottle EA EYE SCH (09:52)
[2018-07-17] MEDS: Azithromycin 500 MG in Sodium Chloride 0.9% 250 ML 250 ML IVPB SCH (11:27)
[2018-07-18] MEDS: Ipratropium Bromide 2.5 ml Neb NEB SCH ×3 (00:54→13:00)
[2018-07-18 05:32] LABS: Troponin I 0.028 ng/mL (< 0.028)
[2018-07-18] MEDS: Furosemide 40 MG/4 ML VIAL SLOW IVP SCH ×2 (06:11→14:03)
[2018-07-18] MEDS: Mometasone/Formoterol 120 PUFF INHALER INH SCH (07:53)
[2018-07-18] MEDS: Timolol 0.5% Ophth Soln 5 ml Bottle EA EYE SCH (10:18)
[2018-07-18] MEDS: Latanoprost 0.005% Ophth Soln 2.5 ml Bottle EA EYE SCH (10:18)
[2018-07-18] MEDS: Brimonidine Tartrate 0.2% Ophth Soln 5 ml Bottle EA EYE SCH (10:18)
[2018-07-18] MEDS: Finasteride 5 MG TAB PO SCH (10:19)
[2018-07-18] MEDS: Potassium Chloride 10 MEQ TAB PO SCH (10:20)
[2018-07-18] MEDS: Carvedilol 6.25 MG TAB PO SCH (10:20)
[2018-07-18] MEDS: predniSONE 20 MG TAB PO SCH (10:20)
[2018-07-18] MEDS: cefTRIAXone\\ROCEPHIN 2 GM in Sodium Chloride 0.9% 100 ML IVPB SCH (10:21)
[2018-07-18] MEDS: Spironolactone 25 MG TAB PO SCH (10:21)
[2018-07-18] MEDS: Ferrous Sulfate 325 MG TAB PO SCH (10:21)
[2018-07-18] MEDS: Amiodarone 200 MG TAB PO SCH (10:21)
[2018-07-18] MEDS: Atorvastatin Calcium 20 MG TAB PO SCH (10:21)
[2018-07-18] MEDS: Gabapentin 300 MG CAP PO SCH (10:21)
[2018-07-18] MEDS: Azithromycin 500 MG in Sodium Chloride 0.9% 250 ML 250 ML IVPB SCH (11:04)
[2018-07-18 11:54] VITALS: BP 106/77; TEMP 98.3
--- NOTE | 2018-07-19 02:42 | DIS ---
DATE OF ADMISSION: 07/16/2018 DATE OF DISCHARGE: 07/17/2018 ADMIT DIAGNOSES: Chronic obstructive pulmonary disease exacerbation and congestive heart failure exacerbation with social service complications. PRIMARY CARE PHYSICIAN: Sid Rae MD HISTORY OF PRESENT ILLNESS: This is a 68-year-old male who resides at individual apartments at [place]. He had difficulty obtaining his medicines because he could not get to the pharmacy after his discharge from the previous rehab he was in, one of the local nursing homes for rehab, and could not get to the pharmacy, ran out of medicines and then ended up in the ER with shortness of breath. He was easily diuresed. His nebulizer treatments were reinstated and he was doing well by the time of discharge. The discussion per Dr. Rae was then he would eventually need to change to a pharmacy that will deliver such as [facility]. Being it is a weekend, [facility] is not opened and it is also holiday not sure when that will able to start that process. The other issue was that he was evidently when they discharged him from the last rehab, not sure which snf it was either [facility] or [facility], but he was told that they had accidently instead of discharging him, they declared him and the social work case manager caseworker protective services here in the hospital thinks that has been corrected as we can pull up his account now which show that he has Medicaid. So, the plan today is to discharge him back to home with his sister, who was his econometrician to have her go and corn picker his Lasix and his medicines that he is needing at the [facility], which is where he is typically getting his medicines and then to follow up with Dr. Rae in the next week or so and get medicines switch over to a delivery pharmacy. The patient also is interested in going [facility], so we will start that process as well. Job ID: [id number]
== END 2018-07-18 14:21 | disposition home or self-care (01) ==
LOC: ERS 21:52 → ERHOLD 07-16 00:34 → 2SW 07-16 14:43
PROVIDERS: ADMIT Family Medicine; ATTEND Family Medicine
DX: J44.1 Chronic obstructive pulmonary disease with (acute) exacerbation (principal); I13.0 Hypertensive heart and chronic kidney disease with heart failure and stage 1 through stage 4 chronic kidney disease, or unspecified chronic kidney disease; E11.22 Type 2 diabetes mellitus with diabetic chronic kidney disease; N18.3 Chronic kidney disease, stage 3 (moderate); I50.20 Unspecified systolic (congestive) heart failure; D63.1 Anemia in chronic kidney disease; K21.9 Gastro-esophageal reflux disease without esophagitis; E78.5 Hyperlipidemia, unspecified; E11.40 Type 2 diabetes mellitus with diabetic neuropathy, unspecified; M19.90 Unspecified osteoarthritis, unspecified site; F32.9 Major depressive disorder, single episode, unspecified; F14.10 Cocaine abuse, uncomplicated; H40.9 Unspecified glaucoma; H54.61 Unqualified visual loss, right eye, normal vision left eye; G47.00 Insomnia, unspecified; Z88.5 Allergy status to narcotic agent; Z88.8 Allergy status to other drugs, medicaments and biological substances; Z95.810 Presence of automatic (implantable) cardiac defibrillator; Z79.82 Long term (current) use of aspirin; Z79.51 Long term (current) use of inhaled steroids; Z79.899 Other long term (current) drug therapy; Z98.890 Other specified postprocedural states
CPT/HCPCS: 71045; 80053 ×2; 82553; 83880; 84484 ×4; 85025 ×2; 87804 ×2; 93005; 94640 ×7; 94664; 96365; 96366 ×2; 96367; 96374; 96375 ×2; 96376 ×2; 99285; G0378 ×2; 36415; J0456; J0696; J1940; J2930; J7050; J7506; J7620

== ENCOUNTER 2018-07-19 10:07 | Emergency (ER) | payer MEDICARE, MEDICAID ==
--- NOTE | 2018-07-19 11:20 | RAD ---
RIGHT ANKLE RADIOGRAPHS 3 VIEWS: DATE: 07/19/2018. PROVIDED CHISTI Right ankle pain. FINDINGS: There is a focus of mineralization overlying the dorsal aspects of the talonavicular joint on the lat eral view that could reflect age-indeterminate avulsion fracture. No additional potential fracture i s evident. Alignment appears anatomic. Joint spaces appear preserved. Small plantar calcaneal enth esophyte. IMPRESSION: Small focus of ossification overlies the dorsal aspects of the talonavicular joint that may reflect a n age indeterminate avulsion fracture. POS: [facility]
[2018-07-19] MEDS ORDERED: HYDROcodone/Acetaminophen 5/325 mg Tablet ONE (11:53)
[2018-07-19] MEDS ORDERED: Ketorolac Tromethamine 30 MG/ML VIAL ONE (11:53)
== END 2018-07-19 12:39 | disposition home or self-care (01) ==
LOC: ERS 10:07
DX: S92.151A Displaced avulsion fracture (chip fracture) of right talus, initial encounter for closed fracture (principal); E78.5 Hyperlipidemia, unspecified; I11.0 Hypertensive heart disease with heart failure; I50.9 Heart failure, unspecified; J44.9 Chronic obstructive pulmonary disease, unspecified; F41.9 Anxiety disorder, unspecified; F17.210 Nicotine dependence, cigarettes, uncomplicated; W01.0XXA Fall on same level from slipping, tripping and stumbling without subsequent striking against object, initial encounter
CPT/HCPCS: 96372; J1885

== ENCOUNTER 2018-07-21 09:59 | Emergency (ER) | payer MEDICARE, OTHER ==
[2018-07-21] MEDS ORDERED: Ketorolac Tromethamine 30 MG/ML VIAL ONE (10:21)
== END 2018-07-21 11:36 | disposition home or self-care (01) ==
LOC: ERS 09:59
DX: M79.671 Pain in right foot (principal); E78.5 Hyperlipidemia, unspecified; I11.0 Hypertensive heart disease with heart failure; I50.9 Heart failure, unspecified; J44.9 Chronic obstructive pulmonary disease, unspecified; F41.9 Anxiety disorder, unspecified; F17.210 Nicotine dependence, cigarettes, uncomplicated
CPT/HCPCS: 96372; J1885

== ENCOUNTER 2018-10-29 15:11 | Inpatient (IN) | payer MEDICARE, MEDICAID ==
[2018-10-29 15:38] LABS: #Lymphocytes 1.2 thou/uL (1.20-3.40); #Monocytes 0.8 thou/uL (0.11-0.59); #Neutrophils 4.4 thou/uL (1.40-6.50); %Basophils 0.6 % (0.0-1.0); %Eosinophils 0.7 % (0.0-10.0); %Lymphocytes 18.6 % (21.0-51.0); %Neutrophils 68.2 % (42.0-75.0); Hemoglobin 15.3 g/dL (14.0-18.0); Mean Corpuscular HGB CONC 34.5 g/dL (32.0-36.0); Mean Corpuscular Hemoglobin 33.1 pg (27.0-31.0); Mean Corpuscular Volume 95.9 fL (78.0-98.0); Mean Platelet Volume 9.6 fL (7.4-10.4); Platelet Count 177 thou/uL (130-400); Red Blood Cell (RBC) Count 4.62 mill/uL (4.70-6.10); White Blood Cell (WBC) Count 6.4 thou/uL (4.8-10.8)
[2018-10-29 16:06] LABS: ALT (SGPT) 37 U/L (8-55); AST (SGOT) 37 U/L (5-34); Albumin 4.3 g/dL (3.4-4.8); Alkaline Phosphatase 72 U/L (40-150); Anion Gap 16 mmol/L (10-20); BUN (Urea Nitrogen) 26 mg/dL (8.4-25.7); Bilirubin, Total 1.6 mg/dL (0.2-1.2); Calc. Creatinine Clearance 0 mL/min (70-130); Calcium 9.4 mg/dL (7.8-10.44); Carbon Dioxide 24 mmol/L (23-31); Chloride 99 mmol/L (98-107); Estimated GFR-MDRD 39; Globulin 3.3 g/dL (2.4-3.5); Glucose 115 mg/dL (80-115); Lipase 17 U/L (8-78); Potassium 3.6 mmol/L (3.5-5.1); Protein, Total 7.6 g/dL (5.8-8.1); Sodium 135 mmol/L (136-145)
--- NOTE | 2018-10-29 18:33 | RAD ---
Chest one view HISTORY: Headache. Dyspnea. COMPARISON: 07/15/2018. FINDINGS: Cardiac silhouette is magnified by projection. Pulmonary vasculature is unremarkable. Media stinum is midline with a dual lead left subclavian cardiac electronic device and postoperative changes of the cervical spine. Lungs remain hyperinflated. Linear atelectasis at the lung bases. No l obar consolidation or evidence of pneumothorax. IMPRESSION: Pulmonary hyperinflation and other chronic-type findings are stable. No active cardiopulm onary abnormalities are demonstrated.
[2018-10-29] MEDS ORDERED: Ondansetron PF 4 MG/2 ML Vial ONE (18:46)
[2018-10-29 19:01] LABS: CKMB 1.8 ng/mL (0-6.6)
[2018-10-29] MEDS ORDERED: Aspirin 81 mg Enteric Coated Tablet ONE (19:55)
[2018-10-29 20:20] LABS: Bilirubin Negative (Negative); Blood, Urine Negative (Negative); Clarity CLEAR (Clear); Glucose, Urine (Dipstick) Negative (Negative); Leukocyte Negative (Negative); Nitrite Negative (Negative); Protein, Urine (Dipstick) Negative (Neg-Trace); Specific Gravity, Urine 1.008 (1.002-1.036); pH, Urine 6.5 (5.0-9.0)
[2018-10-29 21:25] LABS: Troponin I 0.069 ng/mL (< 0.028)
[2018-10-29] MEDS ORDERED: Acetaminophen 500 MG TAB ONE (21:31)
[2018-10-30 00:42] VITALS: BMI 23.8
[2018-10-30 00:42] LABS: Troponin I 0.067 ng/mL (< 0.028)
[2018-10-30] MEDS ORDERED: Sodium Chloride 0.9% 500 ML IVPB SCH (04:00)
[2018-10-30] MEDS ORDERED: hydrOXYzine 25 MG TAB PO PRN (04:29)
[2018-10-30] MEDS ORDERED: PROVENTIL INHALER 6.7 G (200 INHALATIONS) INH PRN (04:29)
[2018-10-30] MEDS: DOPamine 400 MG/D5W 250 ML 250 ML IVPB SCH ×2 (04:29→20:34)
[2018-10-30] MEDS ORDERED: Polyethylene Glycol 3350 17 GM Packet PO PRN (04:29)
[2018-10-30 06:00] LABS: Anion Gap 13 mmol/L (10-20); BUN (Urea Nitrogen) 26 mg/dL (8.4-25.7); Calc. Creatinine Clearance 42 mL/min (70-130); Calcium 8.4 mg/dL (7.8-10.44); Carbon Dioxide 25 mmol/L (23-31); Chloride 100 mmol/L (98-107); Estimated GFR-MDRD 42; Glucose 71 mg/dL (80-115); Potassium 3.4 mmol/L (3.5-5.1); Sodium 135 mmol/L (136-145)
--- NOTE | 2018-10-30 06:30 | HP ---
PRIMARY CARE PHYSICIAN: Dr. Sid Rae. CHIEF COMPLAINT: Episode of chest pain, recent episode of low blood pressure. HISTORY OF PRESENT ILLNESS: This is a 68-year-old gentleman with a long history of congestive heart failure, hypertension, COPD, chronic kidney disease, past history of cocaine abuse, noncompliance and homelessness, presents to the emergency department with episodes of chest pain. Looking back at his outpatient notes, the patient has had several episodes of low blood pressure, some shortness of breath on and off, episodes of congestive heart failure exacerbation. Recently had an echocardiogram in July 2018 with severely reduced left ventricular ejection fraction of 15% to 20%. He underwent an AICD placement by Dr. Tavares. He had been discussing with Dr. Rae as an outpatient for his low blood pressure. Recently had his diuretics changed from furosemide to torsemide by Dr. Forbes. He was seen in the emergency department last night with complaints of chest pain. His cardiac enzymes were at his baseline. His BNP was improved from before. He did have some improvement in his symptoms after a fluid bolus of 500 mL of normal saline. He is now denying any chest pain or shortness of breath. I was called to the floor due to his blood pressure being 76 systolic. The patient continues to be asymptomatic. He had some improvement with fluids and holding his morning diuresis. He denies chest pain or shortness of breath at this time. PAST MEDICAL HISTORY: COPD, hypertension, gastroesophageal reflux disease, osteoarthritis, history of allergies, history of recurrent major depression, anemia of chronic disease, hyperlipidemia, oxygen therapy at home, chronic pain, history of cocaine abuse, chronic kidney disease stage 3, chronic systolic heart failure, history of glaucoma, neuropathy. MEDICATIONS: Include, 1. Albuterol inhaler q.6 p.r.n. 2. Breo inhaler b.i.d. 3. Aspirin 81 mg daily. 4. Amiodarone 100 mg daily. 5. Pantoprazole 40 mg daily. 6. Lexapro 10 mg daily. 7. Tessalon Perles 100 mg p.r.n. 8. Spironolactone 25 mg daily. 9. Atorvastatin 20 mg daily. 10. Potassium chloride 10 mEq once daily. 11. Carvedilol 3.125 mg twice a day. New medicine is, 1. Torsemide twice a day, but he is unsure of dosage. 2. Gabapentin 300 mg b.i.d. 3. Hydroxyzine 25 mg t.i.d. p.r.n. anxiety. 4. DuoNebs p.r.n. cough and wheeze. PAST SURGICAL HISTORY: Neck surgery, hand surgery for osteomyelitis of the right hand, ICD placement in July of 2017. SOCIAL HISTORY: Currently nonsmoking, living at [facility]. Poor family support. In the past, had been living in [place], then in [place] and had to run away from [place] due to living situation there. REVIEW OF SYSTEMS: As per the history of present illness. HEENT: Positive vision loss in his right eye. Positive history of glaucoma. Denies congestion or runny nose at this time. Denies headache. CARDIAC: Denies chest pain now. History of chest pain or shortness of breath. PULMONARY: History of COPD. No cough or shortness of breath now. GI: No nausea, vomiting, abdominal pain. : Denies dysuria or hematuria. NEUROLOGIC: Positive weakness. Positive neuropathy. PHYSICAL EXAMINATION: VITAL SIGNS: Temperature 97.8, pulse of 74, respirations 16, blood pressure now 90/55, pulse ox 95% on 1 L nasal cannula. GENERAL: He is awake and alert, in no acute distress. He is comfortable in bed. HEENT: Mucosa is dry. NECK: Supple. HEART: Distant, but regular rate and rhythm. LUNGS: With decreased breath sounds. No wheeze, rales, or rhonchi. ABDOMEN: Soft. No hepatosplenomegaly. EXTREMITIES: No edema. LABORATORY DATA: White blood cell count 6400, hemoglobin and hematocrit 15.3 and 44.3, platelets of 177. Sodium 135, potassium 3.6, chloride 99, CO2 of 24, BUN and creatinine 26 and 2.09 with a GFR of 39, serum glucose of 115, calcium of 9.4, AST and ALT are stable. Troponin I 0.075, 0.069, 0.067. BNP of 426, where his baseline has been over 1000. Chest x-ray last night revealed pulmonary hyperinflation. Chronic findings are stable. ASSESSMENT AND PLAN: This is a 68-year-old gentleman with multiple medical problems including chronic congestive heart failure with decreased left ventricular ejection fraction, now admitted with chest pain and low blood pressure. 1. Chest pain. He is ruling out for myocardial infarction. We will recheck echocardiogram and consult Cardiology for further evaluation. 2. Severe hypotension. Holding his blood pressure medicines and diuretics. He has received a total of 1 L of fluid bolus. I will start low-dose dopamine. There is no bed availability in the ICU. We will continue to monitor on telemetry since he is clinically stable. . We will monitor closely. Recheck chest x-ray and BNP in the morning. 3. Cardiomyopathy with decreased left ventricular ejection fraction. I will likely need to restart his carvedilol and possibly a lower dose of his torsemide. We will continue to follow cautiously. 4. Stage 3 chronic kidney disease, likely worsened due to prerenal component. We will recheck labs in the morning. He appears to be slightly fluid depleted at this time. 5. Glaucoma. We will continue his medications. 6. Anxiety. Continue his antianxiety medicines and hydroxyzine p.r.n. 7. Gastrointestinal protection with pantoprazole. Job ID: [id number] MTDD
[2018-10-30] MEDS: Mometasone/Formoterol 120 PUFF INHALER INH SCH ×2 (09:15→19:46)
[2018-10-30] MEDS: Ondansetron PF 4 MG/2 ML Vial IVP PRN ×2 (09:15→20:34)
--- NOTE | 2018-10-30 09:17 | RAD ---
Chest AP view INDICATION: CHF COMPARISON: October 29, 2018 FINDINGS:The heart size is normal. No acute osseous abnormality is evident. Dual-lead pacemaker is u nchanged in position. Mild hyperinflation is stable. Bibasilar scarring is stable. IMPRESSION: Stable mild hyperinflation. Suspected scarring involving the lung bases are stable.
[2018-10-30] MEDS: Atropine Sulfate 1% Ophth Soln 5 ml Bottle EA EYE SCH ×3 (10:35→17:45)
[2018-10-30] MEDS: Brimonidine Tartrate 0.2% Ophth Soln 5 ml Bottle EA EYE SCH (10:35)
[2018-10-30] MEDS: Timolol 0.5% Ophth Soln 5 ml Bottle EA EYE SCH (10:36)
[2018-10-30] MEDS: Aspirin 81 mg Enteric Coated Tablet PO SCH (11:11)
[2018-10-30] MEDS: Amiodarone 200 MG TAB PO SCH (11:11)
[2018-10-30] MEDS: Escitalopram Oxalate 10 mg Tablet PO SCH (11:12)
[2018-10-30] MEDS: Loratadine 10 MG TAB PO SCH (11:12)
[2018-10-30] MEDS: Atorvastatin Calcium 20 MG TAB PO SCH (11:12)
[2018-10-30] MEDS: Multivitamin W/ Minerals 1 TAB PO SCH (11:12)
[2018-10-30] MEDS: Gabapentin 300 MG CAP PO SCH ×2 (11:12→20:33)
--- NOTE | 2018-10-30 13:28 | CON ---
DATE OF CONSULTATION: 10/30/2018 INDICATION FOR CONSULTATION/HISTORY OF PRESENT ILLNESS: A 68-year-old gentleman with a history of known nonischemic cardiomyopathy with severe decrease in left ventricular systolic function, who underwent an AICD implant in July and also had a lead revision of the right ventricular lead. He has had a long history of his cardiomyopathy, most likely due to history of illicit drug use in the past with cocaine and amphetamines. He has been having hypotension for quite some time. He has been followed by the [facility]. His medications have been adjusted and recently had further decrease in his Coreg and also increase in his diuretics, were changed to a different diuretic, but he said the doses, which was increased. He presents with nausea, vomiting, and hypotension. Also some chest discomfort. He has been having occasional cough. At this time, he is very comfortable. He may have had some dehydration. He does have chronic kidney disease, but his creatinine is slightly elevated at 1.96 and on admission, it was 2.09. His usual creatinine is somewhere around 1.5 down the average and he maybe slightly over diuresed after changing the diuretics and also with associated nausea, vomiting, and diarrhea. His cardiac enzymes are indeterminate, but most likely associated with his cardiomyopathy and I suspect he has chronically elevated cardiac enzymes. On review of his other visits, he has always had slightly elevated troponin I. At this time, he is comfortable. Echocardiogram has again been performed. Ejection fraction still remains less than 20%. The full report will follow. At this time, he is otherwise comfortable. Blood pressure has improved. His blood pressure now is 96/61 and early was 81/50. On review of the records from the [facility], he has always had systolic hypotension due to his severe cardiomyopathy and also associated with some of his medications. PAST MEDICAL HISTORY: Rather extensive for the end-stage severe cardiomyopathy and COPD. History of hypertension in the past, but now he is hypotensive. He has a history of gastroesophageal reflux disease. He has hypercholesterolemia, history of glaucoma, gastroesophageal reflux disease, anxiety, and a multitude of other medical issues and he is also status post AICD implant. He has had hand surgery and neck surgery. SOCIAL HISTORY: He continued to abuse marijuana. His last cocaine abuse was quite sometime ago. He said he had no longer smokes cigarettes after several months, but continues to smoke marijuana. He lives at [facility]. ALLERGIES: HE IS ALLERGIC TO CODEINE, DULOXETINE, AND MIRTAZAPINE WELL NIACIN. FAMILY HISTORY: Noncontributory. REVIEW OF SYSTEMS: A 12-point review of systems is relatively unremarkable except for what is noted in the history of present illness with the nausea, vomiting, diarrhea, and occasional chest discomfort and cough. PRESENT MEDICATIONS: Include; 1. Amiodarone 100 mg a day. 2. Aspirin 81 mg a day. 3. Lipitor 20 mg a day. 4. He is on ophthalmic drops. 5. He takes Lexapro. 6. Neurontin. 7. Claritin. 8. Multivitamins. 9. Protonix. 10. Nasal spray. 11. He is also on inhalers. 12. Atarax as needed. 13. Zofran as needed. 14. MiraLAX as needed. 15. He had also been on carvedilol 6.25 mg, it has been decreased down to 3.125 mg. 16. He has been on Lasix, has been changed recently to I believe another diuretic, torsemide, I think he was taking 60 mg a day. At this time, the diuretics have been held as well as the Coreg and he has been placed on dopamine to increase the blood pressure. PHYSICAL EXAMINATION: GENERAL: Reveals a well-developed, well-nourished gentleman, who is in no acute distress at this time. VITAL SIGNS: Blood pressure is 96/61, respiratory rate is 18, he is afebrile, and heart rate is 68. HEENT: Shows the head to be normocephalic and atraumatic. NECK: Carotid pulses are present, but are somewhat decreased. CHEST: His chest is actually clear, but he has late inspiratory wheezing throughout. CARDIOVASCULAR: Heart sounds are distant. I do not hear an S3 nor an S4. I do not hear any significant murmurs. He does have a well-healed surgical incision underneath the left infraclavicular area after an AICD implant. The incision is well healed. ABDOMEN: Soft and nontender. Positive bowel sounds are present. EXTREMITIES: Show no clubbing or cyanosis. Pedal pulses are decreased. Popliteal pulses are present, but are also decreased. NEUROLOGIC: He appears to be intact. LABORATORY DATA: Noted for the troponin I, which was a 0.075 on admission and is now 0.067. His BNP was 306. BUN was 26 with a creatinine 1.96 and potassium 3.4. Hemoglobin 15.3. EKG shows a normal sinus rhythm with interventricular conduction abnormality. He does have T-wave inversion in the inferolateral leads. I am uncertain if this is a change in his previous EKGs. We will try to evaluate his older EKGs to see if there has been any changes. I would not suspect though since he has a history of nonischemic cardiomyopathy. He has had several cardiac catheterizations in the past, has been told his coronaries were within normal limits. IMPRESSION AND PLAN: 1. Congestive heart failure exacerbation with most likely associated likely hypotension. He has hypertension with cardiomyopathy. He may be over diuresed. I would agree with the dopamine. We will hold off on his Coreg and diuretics at this time. The blood pressure should stabilize. He has chronic hypotension. 2. Chronic obstructive pulmonary disease. Unfortunately, he continues to smoke marijuana. He has chronic bronchitis. He continues to have wheezing. We will continue with his nebulizer treatments. 3. History of hypertension, which is now hypotensive associated with cardiomyopathy and medications. The patient is legally blind. 4. Chronic kidney disease. It appears to be worsening at this time, but hopefully this will improve after some volume replacement and better perfusion using dopamine. At this time, chest x-ray did not show any acute changes. I will continue to monitor the patient with you. We may need to decrease his diuretics on discharge. We will try to continue with his carvedilol. He also been on spironolactone. He may need to continue this medicine also, we will see how he does for his blood pressure is concerned. Job ID: [id number]
[2018-10-31] MEDS: Latanoprost 0.005% Ophth Soln 2.5 ml Bottle EA EYE SCH (03:01)
[2018-10-31] MEDS: Atropine Sulfate 1% Ophth Soln 5 ml Bottle EA EYE SCH ×4 (03:01→16:26)
[2018-10-31 05:43] LABS: #Eosinphils 0.1 thou/uL (0.0-0.7); #Lymphocytes 1.4 thou/uL (1.20-3.40); #Monocytes 0.6 thou/uL (0.11-0.59); #Neutrophils 3.4 thou/uL (1.40-6.50); %Basophils 0.5 % (0.0-1.0); %Monocytes 10.6 % (0.0-10.0); %Neutrophils 61.9 % (42.0-75.0); Hemoglobin 13.4 g/dL (14.0-18.0); Mean Corpuscular Hemoglobin 32.7 pg (27.0-31.0); Mean Corpuscular Volume 99.1 fL (78.0-98.0); Platelet Count 139 thou/uL (130-400); RBC Distribution Width 11.9 % (11.5-14.5); Red Blood Cell (RBC) Count 4.11 mill/uL (4.70-6.10); White Blood Cell (WBC) Count 5.4 thou/uL (4.8-10.8)
[2018-10-31 06:01] LABS: Anion Gap 13 mmol/L (10-20); BUN (Urea Nitrogen) 17 mg/dL (8.4-25.7); Calc. Creatinine Clearance 51 mL/min (70-130); Calcium 8.7 mg/dL (7.8-10.44); Carbon Dioxide 24 mmol/L (23-31); Chloride 101 mmol/L (98-107); Estimated GFR-MDRD 51; Glucose 135 mg/dL (80-115); Potassium 3.3 mmol/L (3.5-5.1); Sodium 135 mmol/L (136-145)
[2018-10-31] MEDS: Escitalopram Oxalate 10 mg Tablet PO SCH (09:05)
[2018-10-31] MEDS: Amiodarone 200 MG TAB PO SCH (09:05)
[2018-10-31] MEDS: Gabapentin 300 MG CAP PO SCH ×2 (09:05→21:59)
[2018-10-31] MEDS: Aspirin 81 mg Enteric Coated Tablet PO SCH (09:05)
[2018-10-31] MEDS: Multivitamin W/ Minerals 1 TAB PO SCH (09:05)
[2018-10-31] MEDS: Atorvastatin Calcium 20 MG TAB PO SCH (09:05)
[2018-10-31] MEDS: Brimonidine Tartrate 0.2% Ophth Soln 5 ml Bottle EA EYE SCH (09:07)
[2018-10-31] MEDS: Loratadine 10 MG TAB PO SCH (09:08)
[2018-10-31] MEDS: Timolol 0.5% Ophth Soln 5 ml Bottle EA EYE SCH (09:08)
[2018-10-31] MEDS: Mometasone/Formoterol 120 PUFF INHALER INH SCH ×2 (09:17→18:55)
[2018-10-31] MEDS: Potassium Chloride 20 MEQ TAB PO SCH (16:25)
--- NOTE | 2018-10-31 18:32 | PDOC.CTH ---
Cardiology Progress Note - Subjective The pt seen and examined. No overnight events. No cardiac complaints. - Objective Vital Signs Temp Pulse Resp BP Pulse Ox 10/31/18 16:00 98.9 F 65 20 85/59 L 92 L 10/31/18 12:00 98.6 F 67 16 100/64 92 L 10/31/18 09:10 102/72 10/31/18 09:08 67 10/31/18 08:00 95 10/31/18 07:58 98.8 F 67 16 75/55 L 95 Weight 182 lb 2 oz 10/30/18 10/31/18 11/01/18 06:59 06:59 06:59 Intake Total 2637 1140 Output Total 1840 835 Balance 797 305 - Physical Examination General/Neuro: alert & oriented x3 Neck: no JVD present Lungs: CTA Heart: RRR Abdomen: soft Extremities: other: (No edema) - Telemetry Telemetry Rhythm: SR - Labs Result Diagrams: 10/31/18 05:23 10/31/18 05:23 Troponin/CKMB CK-MB (CK-2) 1.8 ng/mL (0-6.6) 10/29/18 15:19 Troponin I 0.067 ng/mL (< 0.028) H 10/30/18 00:00 - Assessment/Plan 1. Hypotension 2/2 severe end stage CMY with EF 15-20% - S/p AICD placement; Dopamine is off now. cont. to monitor 2. Acute on Chronic Systolic HF - stable with RA; Not on BBlocker or JEANNIE/ARB 2/ 2 hypotensive 3. Hx of V tach - stable with Amiodarone 4. COPD - stable with RA 5. Hyperlipidemia - Not on statin 6. CKD stage 3 - stable 7. GERD - 8. Ilicit drug abuse - MAR reviewed Pt. seen and eval. by me. I agree with the A/P by the DRY BOX TENDER. * Escobar's pt Review of Systems - Review of Systems Constitutional: reports: no symptoms reported EENTM: reports: no symptoms reported Respiratory: reports: no symptoms reported Cardiac (ROS): reports: no symptoms reported ABD/GI: reports: no symptoms reported : reports: no symptoms reported Musculoskeletal: reports: no symptoms reported
[2018-11-01 05:56] LABS: Anion Gap 12 mmol/L (10-20); BUN (Urea Nitrogen) 15 mg/dL (8.4-25.7); Calc. Creatinine Clearance 59 mL/min (70-130); Calcium 8.4 mg/dL (7.8-10.44); Carbon Dioxide 26 mmol/L (23-31); Chloride 102 mmol/L (98-107); Estimated GFR-MDRD 60; Glucose 102 mg/dL (80-115); Potassium 3.6 mmol/L (3.5-5.1); Sodium 136 mmol/L (136-145)
[2018-11-01] MEDS: Mometasone/Formoterol 120 PUFF INHALER INH SCH (07:43)
[2018-11-01] MEDS: Latanoprost 0.005% Ophth Soln 2.5 ml Bottle EA EYE SCH (08:31)
[2018-11-01] MEDS: Atropine Sulfate 1% Ophth Soln 5 ml Bottle EA EYE SCH ×2 (08:31→09:03)
[2018-11-01] MEDS: Atorvastatin Calcium 20 MG TAB PO SCH (09:02)
[2018-11-01] MEDS: Aspirin 81 mg Enteric Coated Tablet PO SCH (09:02)
[2018-11-01] MEDS: Potassium Chloride 20 MEQ TAB PO SCH (09:02)
[2018-11-01] MEDS: Gabapentin 300 MG CAP PO SCH (09:02)
[2018-11-01] MEDS: Multivitamin W/ Minerals 1 TAB PO SCH (09:02)
[2018-11-01] MEDS: Loratadine 10 MG TAB PO SCH (09:02)
[2018-11-01] MEDS: Amiodarone 200 MG TAB PO SCH (09:02)
[2018-11-01] MEDS: Brimonidine Tartrate 0.2% Ophth Soln 5 ml Bottle EA EYE SCH (09:03)
[2018-11-01] MEDS: Timolol 0.5% Ophth Soln 5 ml Bottle EA EYE SCH (09:04)
[2018-11-01] MEDS: Escitalopram Oxalate 10 mg Tablet PO SCH (09:04)
--- NOTE | 2018-11-01 09:20 | PRG ---
DATE OF SERVICE: 10/31/2018 PRIMARY CARE PHYSICIAN: Sid Rae MD SUBJECTIVE: The patient is feeling better. He denies chest pain. Denies shortness of breath. Denies lightheadedness. He did have an episode of 5-beat V-tach yesterday when he refused to take his amiodarone. Otherwise, he states that he is feeling much better today than he has last few weeks. He has a good appetite. No nausea or vomiting. Positive bowel movements. He is ambulating in the friedman without difficulty. OBJECTIVE: VITAL SIGNS: Temperature 98.8, pulse of 67 to 79, respirations 16, blood pressure 75/55 to 100/67, and pulse ox is 95% on room air. GENERAL: He is awake and alert, in no acute distress. Speech is clear. HEENT: Mucosa is moist. NECK: Supple. HEART: Regular rate and rhythm, but distant. LUNGS: Clear bilaterally. EXTREMITIES: No edema. LABORATORY DATA: White blood cell count 5400, hemoglobin and hematocrit 13.4 and 40.7, platelets of 139. Sodium 135, potassium 3.3, chloride 101, CO2 of 24, BUN and creatinine are 17 and 1.64 with GFR of 51, serum glucose of 135, BNP of 306. Chest x-ray yesterday revealed hyperinflation, no sign of failure. ASSESSMENT AND PLAN: This is a 68-year-old gentleman with a history of cardiomyopathy with severely decreased left ventricular ejection fraction, noncompliance, admitted with chest pain and hypotension. 1. Chest pain. Long history of coronary artery disease. No sign of acute myocardial infarction. Appreciate Cardiology evaluation. 2. Cardiomyopathy with decreased left ventricular ejection fraction, appears to be stable, likely not to be able to restart his beta jose due to his hypotension. 3. Severe hypotension improved after fluids and IV dopamine as well as holding his antihypertensives and diuretics. He appears to be back at his baseline at this point. We will give a trial off dopamine and continue to monitor his blood pressure closely. He is asymptomatic even when his blood pressure drops. 4. Stage 3 chronic kidney disease, improved with fluid resuscitation. 5. Noncompliance. Discussed with the patient about the importance of taking his medications as directed. He states that he will take all of his medicines now. 6. Disposition. Hopefully, he will be able to discharge back to [place] tomorrow if he remained stable off dopamine drip. Job ID: [id number]
[2018-11-01 11:16] VITALS: BP 91/65; TEMP 97.5
--- NOTE | 2018-11-01 12:04 | PRG ---
DATE OF SERVICE: 11/01/2018 ADDENDUM: Mr. Sandhu appears to not have any idea what medicines he is taking for his heart. The pharmacy was called, it is a very confused mixture of medicines. It is not clear what he is actually taking. He will be discharged on the following, 1. Coreg 6.25 mg twice a day. 2. Torsemide 20 mg a day. 3. Losartan 25 mg a day. 4. Potassium 20 mEq a day. 5. Amiodarone 100 mg a day. 6. Aspirin 81 mg a day. The patient will be asked to bring all medicines with him to followups. Hopefully, he will be compliant with medications. Otherwise, long-term prognosis is poor with this degree of left ventricular dysfunction. Job ID: [id number]
--- NOTE | 2018-11-01 12:57 | DIS ---
DATE OF ADMISSION: 10/29/2018 DATE OF DISCHARGE: 11/01/2018 PRIMARY CARE PHYSICIAN: Sid Rae MD CHIEF COMPLAINT: Nausea, vomiting, and diarrhea. HISTORY OF PRESENT ILLNESS: The patient had several days of nausea, vomiting, and diarrhea. He called my office on Thursday. Stated he had not had any urination in 24 hours. He was instructed to go to the emergency department. [facility] and has interim home health. The patient was found to be grossly dehydrated with acute on chronic renal insufficiency. The patient has baseline history of systolic congestive heart failure status post AICD placement, and COPD has been stabilized since he has had his medications changed to [facility]. He had multiple hospitalizations over the winter, where he ran out of his medications and has poor family support. He was recently changed from furosemide by his occupational health nurse supervisor, Dr. James, to torsemide 3 tablets 20 mg daily. Traditionally has been on spironolactone as well, 25 mg daily. This along with nausea, vomiting, diarrhea causes the patient's decompensation. He responded well to IV fluids and holding his Lasix. No signs of volume overload prior to discharge. Instructed Home Health to do weekly weights, reporting any changes in weight, 5 pounds. Additionally, hold diuretics for additional 48 hours and then restart them. The patient has followup with myself, I believe the of this month. The patient will keep that. DISCHARGE CONDITION: Fair. Discharge back to assisted living. DISCHARGE DIET: Heart healthy. FOLLOWUP: Follow up with [facility]F Clinic as able once off home health. DISCHARGE MEDICATIONS: Include: 1. Carvedilol 3.125 mg twice daily. 2. ProAir 90 mcg p.r.n. two puffs for cough, wheeze. 3. Potassium chloride 10 mEq daily. 4. Hydroxyzine 25 mg p.r.n. twice daily for anxiety. 5. Gabapentin 600 mg twice daily. 6. Breo Ellipta 200-25 mcg daily. 7. Incruse Ellipta 62.5 mcg once daily. 8. Escitalopram 10 mg daily. 9. Atorvastatin 20 mg daily. 10. Baby aspirin 81 mg daily. 11. Losartan 25 mg daily. 12. Amiodarone 100 mg daily. 13. Torsemide and spironolactone as above, to be reinstituted in 2 further days. 14. The patient to restart his home glaucoma medications including Travatan 0.004% solution one drop in each eye daily. 15. Brimonidine tartrate 0.15% solution each eye 3 times a day. 16. Durezol 0.05% emulsion to each eye twice daily. 17. For a very short period of time, the patient was on pressors, however, has been stable without additional IV bolus for approximately 24 hours prior to discharge. The patient was ambulated with walking program. Job ID: [id number]
[2018-11-01] MEDS ORDERED: Carvedilol 6.25 MG TAB PO SCH (17:00)
[2018-11-02] MEDS ORDERED: Potassium Chloride 20 MEQ TAB PO SCH (08:00)
[2018-11-02] MEDS ORDERED: Losartan 25 MG TAB PO SCH (09:00)
[2018-11-02] MEDS ORDERED: Torsemide 20 MG TAB PO SCH (09:00)
== END 2018-11-01 16:30 | disposition home health service (06) | DRG 291 ==
LOC: ERS 15:11 → 2SE 20:08
PROVIDERS: ADMIT Family Medicine; ATTEND Family Medicine
PROC: 3E033XZ Introduction of Vasopressor into Peripheral Vein, Percutaneous Approach (ICD-10-PCS; principal; 2018-10-29)
DX: I13.0 Hypertensive heart and chronic kidney disease with heart failure and stage 1 through stage 4 chronic kidney disease, or unspecified chronic kidney disease (principal); I50.23 Acute on chronic systolic (congestive) heart failure; N17.9 Acute kidney failure, unspecified; J44.9 Chronic obstructive pulmonary disease, unspecified; E86.0 Dehydration; I25.10 Atherosclerotic heart disease of native coronary artery without angina pectoris; Z95.810 Presence of automatic (implantable) cardiac defibrillator; N18.3 Chronic kidney disease, stage 3 (moderate); D63.1 Anemia in chronic kidney disease; Z99.81 Dependence on supplemental oxygen; E78.00 Pure hypercholesterolemia, unspecified; I95.9 Hypotension, unspecified; G89.29 Other chronic pain; I42.8 Other cardiomyopathies; F41.9 Anxiety disorder, unspecified; Z91.14 Patient's other noncompliance with medication regimen; H40.9 Unspecified glaucoma; F15.188 Other stimulant abuse with other stimulant-induced disorder; M19.90 Unspecified osteoarthritis, unspecified site; R19.7 Diarrhea, unspecified; R11.2 Nausea with vomiting, unspecified; H54.8 Legal blindness, as defined in USA; E78.5 Hyperlipidemia, unspecified; K21.9 Gastro-esophageal reflux disease without esophagitis; Z88.8 Allergy status to other drugs, medicaments and biological substances; Z79.82 Long term (current) use of aspirin
CPT/HCPCS: 36415; 71045; 80048; 80053; 81003; 82550; 82553; 83690; 83880; 84484; 85025; 93005; 93306; 94640; 94664; 94760; 96361; 96374; J1265; J2405; J7620

== ENCOUNTER 2018-11-16 16:55 | Inpatient (IN) | payer MEDICARE, MEDICAID ==
[2018-11-16 18:31] LABS: #Basophils 0.1 thou/uL (0.0-0.2); #Eosinphils 0.1 thou/uL (0.0-0.7); #Lymphocytes 1.6 thou/uL (1.20-3.40); #Monocytes 0.8 thou/uL (0.11-0.59); #Neutrophils 4.8 thou/uL (1.40-6.50); %Basophils 1.2 % (0.0-1.0); %Lymphocytes 21.3 % (21.0-51.0); %Monocytes 10.4 % (0.0-10.0); %Neutrophils 66.1 % (42.0-75.0); Hemoglobin 16.6 g/dL (14.0-18.0); Mean Corpuscular HGB CONC 31.9 g/dL (32.0-36.0); Mean Corpuscular Hemoglobin 31.4 pg (27.0-31.0); Mean Corpuscular Volume 98.5 fL (78.0-98.0); Mean Platelet Volume 9.5 fL (7.4-10.4); Platelet Count 210 thou/uL (130-400); RBC Distribution Width 12.5 % (11.5-14.5); Red Blood Cell (RBC) Count 5.28 mill/uL (4.70-6.10); White Blood Cell (WBC) Count 7.3 thou/uL (4.8-10.8)
--- NOTE | 2018-11-16 18:34 | RAD ---
EXAM: CHEST ONE VIEW PORTABLE: 11/16/18 HISTORY: Shortness of breath. COMPARISON: 10/29/2018. FINDINGS: Left ICD. Monitor leads overlie the chest. Horizontal linear and parenchymal changes in the lung base s probably subsegmental atelectasis. No confluent pneumonia or overt edema. IMPRESSION: Left ICA. Horizontal linear and parenchymal changes in the lung bases, probably subsegmental atelecta sis. No evidence of pneumonia or acute edema. Atherosclerosis of the aorta. POS: RRE
[2018-11-16 18:49] LABS: ALT (SGPT) 36 U/L (8-55); AST (SGOT) 41 U/L (5-34); Albumin 5.1 g/dL (3.4-4.8); Alkaline Phosphatase 83 U/L (40-150); Anion Gap 21 mmol/L (10-20); BUN (Urea Nitrogen) 28 mg/dL (8.4-25.7); Bilirubin, Total 1.5 mg/dL (0.2-1.2); Calc. Creatinine Clearance 0 mL/min (70-130); Calcium 10.6 mg/dL (7.8-10.44); Carbon Dioxide 26 mmol/L (23-31); Chloride 95 mmol/L (98-107); Estimated GFR-MDRD 31; Glucose 91 mg/dL (80-115); Protein, Total 9.1 g/dL (5.8-8.1); Sodium 138 mmol/L (136-145)
[2018-11-16] MEDS ORDERED: Ondansetron PF 4 MG/2 ML Vial ONE ×2 (19:00→19:21)
[2018-11-16] MEDS ORDERED: methylPREDNISolone Sod Succ/PF 125 MG/2 ML VIAL ONE ×2 (19:00→19:21)
[2018-11-16 19:11] LABS: CKMB 1.2 ng/mL (0-6.6)
[2018-11-16] MEDS ORDERED: Furosemide 40 MG/4 ML VIAL ONE (20:12)
[2018-11-16] MEDS ORDERED: Aspirin Chewable 81 MG TAB ONE (20:12)
[2018-11-16 20:47] LABS: Bilirubin Negative (Negative); Blood, Urine Negative (Negative); Clarity CLEAR (Clear); Glucose, Urine (Dipstick) Negative (Negative); Leukocyte Negative (Negative); Nitrite Negative (Negative); Protein, Urine (Dipstick) Negative (Neg-Trace); Specific Gravity, Urine 1.006 (1.002-1.036); Urobilinogen 0.2 mg/dL (0.2-1.0)
[2018-11-16 22:27] LABS: Troponin I 0.075 ng/mL (< 0.028)
[2018-11-17 01:24] LABS: Troponin I 0.055 ng/mL (< 0.028)
[2018-11-17] MEDS ORDERED: PROVENTIL INHALER 6.7 G (200 INHALATIONS) INH PRN (07:56)
[2018-11-17] MEDS ORDERED: Acetaminophen 500 MG TAB PO PRN (07:59)
[2018-11-17] MEDS ORDERED: Bisacodyl 5 MG TAB PO PRN (07:59)
[2018-11-17] MEDS ORDERED: Benzonatate 100 MG CAP PO PRN (07:59)
[2018-11-17] MEDS ORDERED: Ondansetron ODT 4 MG TAB PO PRN (07:59)
[2018-11-17] MEDS ORDERED: Ondansetron PF 4 MG/2 ML Vial IVP PRN (07:59)
[2018-11-17] MEDS ORDERED: UMECLIDINIUM BROMIDE INH SCH (09:00)
[2018-11-17] MEDS ORDERED: Non-Formulary Item 1 EACH (Fluticasone/Vilanterol [Breo Ellipta] 1 INH) IH SCH (09:00)
[2018-11-17] MEDS ORDERED: Non-Formulary Item 1 EACH (Umeclidinium Bromide [Incruse Ellipta] 1 INH) IH SCH (09:00)
[2018-11-17] MEDS ORDERED: Non-Formulary Item 1 EACH (Gabapentin [Gabapentin] 600 MG) PO SCH (09:00)
[2018-11-17] MEDS ORDERED: predniSONE 20 MG TAB ONE (09:13)
[2018-11-17] MEDS: predniSONE 20 MG TAB PO SCH (09:23)
[2018-11-17] MEDS: Amiodarone 200 MG TAB PO SCH (09:23)
[2018-11-17] MEDS: Atorvastatin Calcium 20 MG TAB PO SCH (09:24)
[2018-11-17] MEDS: Gabapentin 300 MG CAP PO SCH ×2 (09:24→20:43)
[2018-11-17] MEDS: Aspirin 81 mg Enteric Coated Tablet PO SCH (09:24)
[2018-11-17] MEDS: Escitalopram Oxalate 10 mg Tablet PO SCH (09:24)
[2018-11-17 12:54] LABS: Anion Gap 20 mmol/L (10-20); BUN (Urea Nitrogen) 38 mg/dL (8.4-25.7); Calc. Creatinine Clearance 0 mL/min (70-130); Calcium 9.8 mg/dL (7.8-10.44); Carbon Dioxide 22 mmol/L (23-31); Chloride 96 mmol/L (98-107); Estimated GFR-MDRD 27; Glucose 134 mg/dL (80-115); Magnesium 2.4 mg/dL (1.6-2.6); Phosphorus 4.9 mg/dL (2.3-4.7); Potassium 3.7 mmol/L (3.5-5.1); Sodium 134 mmol/L (136-145)
[2018-11-17 12:56] LABS: Troponin I 0.076 ng/mL (< 0.028)
--- NOTE | 2018-11-17 13:56 | HP ---
The patient's PCP is myself, Dr. Sid Rae. CHIEF COMPLAINT: Shortness of breath. HISTORY OF PRESENT ILLNESS: The patient states that he was noticing increasing shortness of breath. He has a longstanding history of systolic heart failure, status post AICD placement and COPD. The patient states that being followed by the [facility]F Clinic. He contacted [facility], and was instructed to get an additional dose of Lasix. However, he stated that his traditional 40 mg of Lasix is not causing him to pee. He was recently swapped over to torsemide from furosemide without any benefit. His dry weights have slowly elevated up. The patient had a recent hospital admission with hypotension where majority of his blood pressure medications were removed. The patient was down to amiodarone and Coreg at his half dose prior to when he was a month ago. Blood pressures per assisted living 107/90. In the emergency department, it trended slightly down to 107/70. The patient states that when he was given an IV dose of Lasix 40 mg that he only peed one time in the last interval of 12 hours, remains in the emergency department, pending admission from last night. The patient states he did produce additional sputum production. However, once on oxygen and received breathing treatments and steroids, this morning he feels his lungs are clear. He states he is without any chest pain or shortness of breath at rest. On review of past medical, social, and surgical history; COPD, hypertension, GERD, osteoarthritis, major depression, anemia of chronic disease, hyperlipidemia, on home oxygen, chronic pain, history of illicit substance abuse including cocaine, CKD, stage 2 to 3, chronic systolic heart failure, glaucoma, diabetic neuropathy, echocardiogram was performed on last admission 10/30/2018, which showed ejection fraction of 15% to 20%. REVIEW OF SYSTEMS: No fevers. No chills. Positive cough. Positive shortness of breath. Chest pain prior to admission was positive, however, no longer at rest. Positive productive sputum. No runny nose or congestion. No headaches. No vision changes. Past his baseline, difficulty of vision of right eye. No diarrhea. No constipation. Positive nausea. No emesis. No abdomen pain. No lower extremity edema. No confusion. No headache. PHYSICAL EXAMINATION: VITAL SIGNS: Pulse was 75, blood pressure 107/70, and oxygen saturation of 98% on 2 L nasal cannula. GENERAL: The patient is alert and oriented, in no acute distress. HEENT: Head is normocephalic and atraumatic. Extraocular movements are intact. The right pupil is opacified at baseline. NECK: Supple. Nasal cannula in place. HEART: Regular rate and rhythm at the time of exam. No murmurs auscultated. LUNGS: Clear to auscultation bilaterally. No rubs, wheezes, or rhonchi. Lung bases are also clear. ABDOMEN: Soft, nontender. Positive bowel sounds throughout. EXTREMITIES: Lower extremities without cyanosis or edema. NEUROLOGIC: The patient is alert and oriented x3. No focal deficits. Speech is normal. REVIEW OF LABORATORY WORK: White blood cell count of 7.3, hemoglobin of 16.6, MCV of 98, platelet count of 210, neutrophil percent of 66. Sodium of 134, potassium of 4.0, CO2 of 26, BUN of 28, creatinine of 2.5, estimated GFR of 31, glucose of 91, calcium of 10.6, bilirubin of 1.5, AST of 41, and albumin of 5.1. Troponin x3 0.06, 0.07, and 0.05. BNP of 762. Regarding the patient's historical creatinine, 1 year ago 1.2 at baseline, this past fall risen to around 1.6, at discharge from last hospital admission 1.4. Urinalysis unremarkable. IMAGING DATA: Chest x-ray without signs of pneumonia. ASSESSMENT AND PLAN: Congestive heart failure exacerbation, systolic, acute kidney injury on chronic obstructive pulmonary disease, elevated troponin, hypertension, chronic pain, continuing on the patient's gabapentin and the SSRI. Holding blood pressure medications and diuretics at this point in time. Consulting Cardiology and Nephrology for recommendations on diuresis. We will likely need much higher dose of Lasix to compensate for his recent decline in renal function, which I suspect is secondary to hypotension, even though the patient has been taken off ACEs and ARBs and down dosed to simply low-dose Coreg. He still remains hypotensive likely signifying poor output from his heart. The patient states verbally that he was going to undergo on Thursday a readjustment of his automated implantable cardioverter-defibrillator, a wire placement, which may possibly be done as inpatient if Cardiology deems necessary. We will trend troponins in the meantime, continuing standard respiratory medications. The patient does not appear to be in a chronic obstructive pulmonary disease exacerbation this admission. We will not cover with antibiotics at this point in time. If the patient's spikes fever or lung sounds get worse or increase in productive sputum, we will cover with antibiotic. Job ID: [id number]
[2018-11-17 14:54] VITALS: BMI 22.6
[2018-11-17] MEDS: Mometasone/Formoterol 120 PUFF INHALER INH SCH (18:41)
--- NOTE | 2018-11-18 01:11 | CON ---
DATE OF CONSULTATION: 11/17/2018 CONSULTING PHYSICIAN: Dr. Rae. REASON FOR CONSULT: Acute kidney injury. REASON FOR ADMISSION: Shortness of breath. HISTORY OF PRESENT ILLNESS: A 68-year-old male with history of COPD, CHF, hyperlipidemia, hypertension, came to the hospital with shortness of breath, has been evaluated for CHF. The patient has been treated with CHF clinic. Also, he was found to have elevated creatinine and Nephrology was consulted. The patient is feeling better. He is short of breath with minimal exertion in his normal state, but denies any change from that. No chest pain or palpitation. No fever or chills. No nausea or vomiting. No diarrhea. No skin rash. No fever or chills. PAST MEDICAL HISTORY: Positive for CHF, hyperlipidemia, hypertension, COPD. PAST SURGICAL HISTORY: Cyst removal from right hand, pacemaker, and AICD placement. HOME MEDICATIONS: Include; 1. Lipitor. 2. Lasix. 3. Breo. 4. Carvedilol. 5. Ellipta. 6. Torsemide. 7. Spironolactone. 8. Klor-Con. 9. Pantoprazole. 10. Lisinopril. 11. Gabapentin. 12. Aspirin. 13. Amiodarone. 14. Albuterol. ALLERGIES: CODEINE, DULOXETINE, MIRTAZAPINE, NIACIN. SOCIAL HISTORY: No smoking, alcohol, or illicit drug abuse. FAMILY HISTORY: No history of kidney disease. REVIEW OF SYSTEMS: CONSTITUTIONAL: Negative for weight loss or gain, ability to conduct usual activities. SKIN: Negative for rash, itching. EYES: Negative for double vision, pain. ENT/MOUTH: Negative for nose bleeding, neck stiffness, pain, tenderness. CARDIOVASCULAR: Negative for palpitations, dyspnea on exertion, orthopnea. RESPIRATORY: Negative for shortness of breath, wheezing, cough, hemoptysis, fever or night sweats. GASTROINTESTINAL: Negative for poor appetite, abdominal pain, heartburn, nausea, vomiting, constipation, or diarrhea. GENITOURINARY: Negative for urgency, frequency, dysuria, nocturia. MUSCULOSKELETAL: Negative for pain, swelling. NEUROLOGIC/PSYCHIATRIC: Negative for anxiety, depression. ALLERGY/IMMUNOLOGIC: Negative for skin rash, bleeding tendency. PHYSICAL EXAMINATION: General: Reveals a well-built male, in no apparent distress. VITAL SIGNS: Temperature , pulse 71, respiratory rate 18, blood pressure 91/67. HEENT: Atraumatic, normocephalic. Oral mucosa is normal. NECK: Supple. CV: S1 and S2 heard. Rate and rhythm regular. RESPIRATORY: Clear. ABDOMEN: Soft. MUSCULOSKELETAL: 1+ edema. DERMATOLOGIC: No skin rash. NEUROLOGIC: Alert, awake. PSYCHIATRIC: Mood and affect normal. LABORATORY DATA: Hemoglobin 16.6. Potassium is 3.7, BUN is 38, creatinine is 2.8, bicarb is 22. BNP 762. ASSESSMENT AND PLAN: 1. Acute kidney injury on chronic kidney disease, stage 4, seems to be from cardiorenal syndrome. The patient seems euvolemic to me. I would recommend holding the diuretics, limiting fluid intake and salt intake and agree with holding JEANNIE inhibitor. 2. Cardiorenal syndrome. Follow with Cardiology . 3. Hyponatremia. Limit fluid intake. 4. Metabolic acidosis. 5. Mildly elevated troponin. 6. Elevated BNP. 7. Edema, controlled. 8. Hypotension. 9. Severe cardiomyopathy with EF of 10% to 15%. Long-term prognosis guarded. I would recommend holding diuretics for a day or so to monitor the renal function. Limit fluid intake. Avoid nephrotoxins. Renally dose all the medications. Medications reviewed. We will follow. Thank you for the consult. Job ID: [id number]
--- NOTE | 2018-11-18 02:32 | CON ---
DATE OF CONSULTATION: HISTORY OF PRESENT ILLNESS: Mr. Humberto Sandhu is a 68-year-old black male with long-standing history of nonischemic cardiomyopathy. He apparently has had cardiac catheterization in the past that did not reveal any significant coronary artery disease. For months in late 2016, he was encouraged to undergo ICD placement; however, he "chickened out." Ultimately, he underwent placement of a dual- chamber ICD. There was right ventricular lead dislodgement and this had to be repositioned. He most recently was admitted on October 29 with nausea, vomiting, and acute renal insufficiency. There was some question as to which medications he was actually taking. Ultimately, he was discharged and he states that [facility] has switched him to torsemide; however, this does not allow a good diuresis. On his last admission, his ejection fraction was 15% to 20% He now is admitted with increased shortness of breath and sputum production. He denies any chest discomfort. He has had chronically elevated troponin I's. PAST MEDICAL HISTORY: COPD, hypertension, GERD, hyperlipidemia, substance abuse including cocaine and methamphetamines, chronic kidney disease, diabetes. MEDICATIONS: 1. Albuterol 2 puffs q.6 hours p.r.n. 2. Amiodarone 100 daily. 3. Aspirin 325 daily. 4. Atorvastatin 20 daily. 5. Carvedilol 3.125 b.i.d. 6. Lexapro 10 mg daily. 7. Ferrous sulfate 325 daily. 8. Breo Ellipta one puff daily. 9. Furosemide 60 b.i.d., however, this has been changed to torsemide. 10. Gabapentin 600 b.i.d. 11. Atarax 25 PRN b.i.d. 12. Lisinopril 2.5 daily. 13. Cozaar 25 daily. 14. Protonix 40 daily. 15. KCl 10 mEq daily. 16. Spironolactone 25 daily. 17. Incruse Ellipta one puff daily. ALLERGIES: CODEINE, CYMBALTA, REMERON, AND NIACIN. SOCIAL HISTORY: He continues to smoke marijuana, apparently stopped smoking cigarettes. He does not drink. REVIEW OF SYSTEMS: Twelve-point review of systems is otherwise unremarkable. PHYSICAL EXAMINATION: VITAL SIGNS: Blood pressure 91/65, pulse of 71. HEENT: PERRL. NECK: Supple. CHEST: Reveals decreased breath sounds at the right base. CARDIOVASCULAR: S1 and S2 normal without any S3, S4, or murmurs. ABDOMEN: Normal bowel sounds without tenderness or organomegaly. EXTREMITIES: Revealed no clubbing, cyanosis, or edema. NEUROLOGIC: Grossly intact. DIAGNOSTIC STUDIES: EKG reveals normal sinus rhythm with left bundle-branch block pattern with QRS of 134 milliseconds. LABORATORY DATA: Hemoglobin 16.6, hematocrit 52.0, white count 7300, platelets 210,000. Sodium 134, potassium 3.7, chloride 96, carbon dioxide 22, BUN 38, creatinine 2.89. At the time of discharge of last admission 10 days ago, his creatinine was 1.58. Troponin-I is up to 0.076. BNP 762.8. IMPRESSION: 1. Increased shortness of breath and sputum production consistent with chronic obstructive pulmonary disease exacerbation. 2. With his elevated creatinine over his baseline, he may be somewhat dry. 3. Nonischemic cardiomyopathy. His last ejection fraction of 15% to 20%. Normal coronary arteries according to the patient from several catheterizations in the past. 4. Status post dual-chamber ICD. He has had a wide-complex QRS of 134 milliseconds. The patient states that he is to have an upgrade to biventricular ICD on November 19. 5. Hypertension, although blood pressure is low at times now. 6. Hypercholesterolemia. PLAN: [facility] will be performed to check on his volume status, but I doubt that he is significantly volume overloaded. He does have chronically elevated troponin I's and history of numerous cardiac catheterizations in the past with normal coronary arteries. The mildly elevated troponin-I's do not need to be further evaluated. We will follow the patient with you. Job ID: [id number] [facility]
[2018-11-18 06:09] LABS: Anion Gap 16 mmol/L (10-20); BUN (Urea Nitrogen) 48 mg/dL (8.4-25.7); Calc. Creatinine Clearance 29 mL/min (70-130); Calcium 9.1 mg/dL (7.8-10.44); Carbon Dioxide 25 mmol/L (23-31); Chloride 96 mmol/L (98-107); Estimated GFR-MDRD 28; Glucose 128 mg/dL (80-115); Potassium 3.3 mmol/L (3.5-5.1); Sodium 134 mmol/L (136-145)
[2018-11-18] MEDS: Mometasone/Formoterol 120 PUFF INHALER INH SCH (06:43)
[2018-11-18] MEDS ORDERED: Prevnar 13-Val Conj/PF 0.5 ML SYRINGE IM ONE (09:00)
--- NOTE | 2018-11-18 09:22 | PRG ---
DATE OF SERVICE: 11/18/2018 SUBJECTIVE: Mr. Sandhu was admitted to the hospital last night with some shortness of breath. There is no evidence of any congestive heart failure on the OptiVol. Again, he is confused about his medicines. OBJECTIVE: VITAL SIGNS: Blood pressure today is 99/73, pulse 74. LUNGS: Clear. CARDIAC: Normal S1, normal S2. OptiVol shows he is not in heart failure. ABDOMEN: Soft and nontender. EXTREMITIES: There is no edema. ASSESSMENT: 1. Severe cardiomyopathy. 2. He is scheduled for biventricular pacemaker defibrillator upgrade tomorrow. Okay with me to be released home to come in tomorrow for a device change. It is listed that he is taking spironolactone would not give him that medicine in view of his renal failure. 3. Congestive heart failure, cardiomyopathy, severe, but compensated. 4. Wide-complex rhythm. PLAN: He is scheduled for biventricular pacemaker defibrillator upgrade tomorrow. Job ID: [id number]
[2018-11-18] MEDS: predniSONE 20 MG TAB PO SCH (09:36)
[2018-11-18] MEDS: Gabapentin 300 MG CAP PO SCH (09:37)
[2018-11-18] MEDS: Amiodarone 200 MG TAB PO SCH (09:37)
[2018-11-18] MEDS: Escitalopram Oxalate 10 mg Tablet PO SCH (09:37)
[2018-11-18] MEDS: Atorvastatin Calcium 20 MG TAB PO SCH (09:37)
[2018-11-18] MEDS: Aspirin 81 mg Enteric Coated Tablet PO SCH (09:37)
[2018-11-18 11:31] VITALS: BP 101/70; TEMP 97.9
[2018-11-18] MEDS ORDERED: Amiodarone 200 MG TAB PO SCH (12:00)
--- NOTE | 2018-11-18 17:31 | PRG ---
DATE OF SERVICE: 11/18/2018 SUBJECTIVE: Patient was seen and examined at bedside and overnight events noted. Patient denies any shortness of breath or chest pain or palpitation. No history of nausea or vomiting or diarrhea or fever or chills or cramps. OBJECTIVE: GENERAL: This is a well-built male, in no apparent distress. VITAL SIGNS: Temperature 97.9. . HEENT: Atraumatic, normocephalic. Oral mucosa is moist. NECK: Supple. CARDIOVASCULAR: S1, S2 heard. Rate and rhythm regular. RESPIRATORY: Clear to auscultation. GASTROINTESTINAL: Abdomen is soft. MUSCULOSKELETAL: No tenderness. No edema. DERMATOLOGIC: No skin rash. NEUROLOGIC: Alert and awake and oriented x3. No focal neurologic deficits. Moving all the extremities. PSYCHIATRIC: Mood and affect normal. LABORATORY DATA: Potassium is 3.3, BUN is 40, and creatinine is 2.7. ASSESSMENT AND PLAN: 1. Acute kidney injury on chronic kidney disease, stage 4. 2. Cardiorenal syndrome. 3. Metabolic acidosis. 4. Elevated BNP. 5. Hypertension. 6. Monitor labs. Job ID: [id number]
--- NOTE | 2018-11-19 11:44 | DIS ---
DATE OF ADMISSION: 11/16/2018 DATE OF DISCHARGE: 11/18/2018 PRIMARY CARE PHYSICIAN: Sid Rae MD ADMITTING DIAGNOSIS: Shortness of breath and chest pain. HISTORY OF PRESENT ILLNESS: On admission, the patient presented to the emergency department for worsening sputum production, cough, shortness of breath and chest pain, has end-stage systolic heart failure status post AICD placement, reported to potentially be undergoing a lead movement of his AICD to get better concordant firing front and back wall to produce slightly better ejection fraction currently at 15% to 20% on last admission last month. The patient states that he has been followed by the CHF clinic, received an extra injection of Lasix as well as told to take an extra dose because he seemed to be slightly volume overloaded on his weights. However, this did not produce any urination. The patient was given a dose of IV Lasix in the emergency department and was also found to produce only one urination. The patient verbalized understanding during his hospital stay regarding his kidneys not working as they had previously. He had acute kidney injury last hospitalization and removal of the majority of his blood pressure medications except for carvedilol. He was maintained on amiodarone for heart rhythm maintenance. However, Nephrology was consulted and did confirm the patient seemed to be in cardiorenal syndrome as patient has struggled with hypotension recently. Dr. Forbes was consulted and did not feel patient needed any intervention given he had several heart catheterizations for indeterminate troponins and has no current coronary artery disease. This is all related to patient's congestive heart failure in his opinion and would benefit from lead placement change of his AICD on an outpatient basis on 11/19/[address] Tavares, confirmed with Dr. Tavares's office that the patient is stable to be seen on an outpatient basis rather than inpatient, as planned to undergo outpatient replacement change. Nephrology recommended complete removal of blood pressure medications as well as holding of any JEANNIE or ARB even though patient's ejection fraction is less than 40%, and place patient on fluid restriction and remove any diuretics at this point in time to monitor for patient's creatinine changer fixer time. When speaking with the patient, he states he would not at this point want to go on hospice but would if needed, want at least a trial of hemodialysis before he made up his final decision if that is what he would like to do if his kidneys continue to fail given his poor output of his heart producing hypotension and acute kidney injury on top of his chronic. The patient's COPD was at baseline. He takes p.r.n. oxygen at home, continued his breathing treatments. There is no need for antibiotics as chest x-ray was clear, as well as exam at bedside. DISCHARGE CONDITION: Guarded. DISCHARGE FOLLOWUP: Follow up with Dr. Tavares the next day, 11/19/2018; myself, 7 days; Dr. Forbes, 1-2 weeks plus Jennifer in the next 3-4 weeks. We will follow up on repeat BMP or CMP next week with Home Health. The patient will return to assisted living. Ambulate as tolerated. Oxygen as tolerated at night. Fluid restriction diet, heart healthy, 1500 mL daily. Job ID: [id number]
== END 2018-11-18 15:38 | disposition home health service (06) | DRG 683 ==
LOC: ERS 16:55 → ERHOLD 19:55 → 2NO 11-17 13:49
PROVIDERS: ADMIT Family Medicine; ATTEND Family Medicine
DX: N17.9 Acute kidney failure, unspecified (principal); I13.0 Hypertensive heart and chronic kidney disease with heart failure and stage 1 through stage 4 chronic kidney disease, or unspecified chronic kidney disease; E87.1 Hypo-osmolality and hyponatremia; E87.2 Acidosis; I42.8 Other cardiomyopathies; I50.22 Chronic systolic (congestive) heart failure; N18.4 Chronic kidney disease, stage 4 (severe); J44.9 Chronic obstructive pulmonary disease, unspecified; K21.9 Gastro-esophageal reflux disease without esophagitis; M19.90 Unspecified osteoarthritis, unspecified site; F32.9 Major depressive disorder, single episode, unspecified; E78.5 Hyperlipidemia, unspecified; G89.29 Other chronic pain; H40.9 Unspecified glaucoma; E11.40 Type 2 diabetes mellitus with diabetic neuropathy, unspecified; E11.22 Type 2 diabetes mellitus with diabetic chronic kidney disease; Z95.810 Presence of automatic (implantable) cardiac defibrillator; Z79.82 Long term (current) use of aspirin; Z88.5 Allergy status to narcotic agent; Z88.8 Allergy status to other drugs, medicaments and biological substances
CPT/HCPCS: 36415; 71045; 80048; 80053; 81003; 82553; 83735; 83880; 84100; 84484; 85025; 93005; 94640; 96361; 96374; 96375; J1940; J2405; J2930; J7512; J7620

== ENCOUNTER 2019-02-11 15:37 | Emergency (ER) | payer MEDICARE, MEDICAID ==
[2019-02-11 16:06] LABS: #Eosinphils 0.1 thou/uL (0.0-0.7); #Lymphocytes 1.5 thou/uL (1.20-3.40); #Monocytes 0.5 thou/uL (0.11-0.59); #Neutrophils 3.6 thou/uL (1.40-6.50); %Basophils 0.3 % (0.0-1.0); %Eosinophils 1.4 % (0.0-10.0); %Lymphocytes 26.1 % (21.0-51.0); %Monocytes 9.3 % (0.0-10.0); %Neutrophils 62.9 % (42.0-75.0); Hemoglobin 15.4 g/dL (14.0-18.0); Mean Corpuscular HGB CONC 34.5 g/dL (32.0-36.0); Mean Corpuscular Hemoglobin 31.8 pg (27.0-31.0); Mean Corpuscular Volume 92.3 fL (78.0-98.0); Mean Platelet Volume 10.1 fL (7.4-10.4); Platelet Count 156 thou/uL (130-400); RBC Distribution Width 12.1 % (11.5-14.5); Red Blood Cell (RBC) Count 4.83 mill/uL (4.70-6.10); White Blood Cell (WBC) Count 5.8 thou/uL (4.8-10.8)
[2019-02-11 16:26] LABS: ALT (SGPT) 27 U/L (8-55); AST (SGOT) 38 U/L (5-34); Alkaline Phosphatase 68 U/L (40-150); Anion Gap 15 mmol/L (10-20); BUN (Urea Nitrogen) 15 mg/dL (8.4-25.7); Bilirubin, Total 1.6 mg/dL (0.2-1.2); Calc. Creatinine Clearance 0 mL/min (70-130); Calcium 9.5 mg/dL (7.8-10.44); Carbon Dioxide 20 mmol/L (23-31); Chloride 107 mmol/L (98-107); Estimated GFR-MDRD 59; Globulin 3.6 g/dL (2.4-3.5); Glucose 135 mg/dL (80-115); Lipase 21 U/L (8-78); Potassium 3.8 mmol/L (3.5-5.1); Protein, Total 7.6 g/dL (5.8-8.1); Sodium 138 mmol/L (136-145)
[2019-02-11] MEDS ORDERED: HYDROcodone/Acetaminophen 10/325 mg Tablet ONE (17:47)
[2019-02-11] MEDS ORDERED: HYDROcodone/Acetaminophen 5/325 mg Tablet ONE (17:56)
[2019-02-11] MEDS ORDERED: Ondansetron PF 4 MG/2 ML Vial ONE (17:56)
[2019-02-11 19:05] LABS: Bilirubin Negative (Negative); Blood, Urine Negative (Negative); Clarity Clear (Clear); Glucose, Urine (Dipstick) Normal (Negative); Leukocyte Negative Leu/uL (Negative); Nitrite Negative (Negative); Protein, Urine (Dipstick) 30 mg/dL (Neg-Trace); Squamous Epithelial 0-3 HPF (0-3); Urobilinogen 3 mg/dL (Less than 2)
[2019-02-11 19:10] LABS: Bacteria/HPF None Seen HPF (None Seen); Sperm/HPF 4+ HPF (None Seen); WBC/HPF 0-3 HPF (0-3)
== END 2019-02-11 20:20 | disposition home or self-care (01) ==
LOC: ERS 15:37
DX: R11.2 Nausea with vomiting, unspecified (principal); R19.7 Diarrhea, unspecified; I11.0 Hypertensive heart disease with heart failure; I50.9 Heart failure, unspecified; J44.9 Chronic obstructive pulmonary disease, unspecified; F17.210 Nicotine dependence, cigarettes, uncomplicated; F41.9 Anxiety disorder, unspecified
CPT/HCPCS: 36415; 80053; 81003; 81015; 82274; 83690; 85025; 87045; 87046; 87324; 87449; 87899; 93005; 96361; 96374; J2405

== ENCOUNTER 2019-04-08 16:22 | Emergency (ER) | payer MEDICARE, OTHER ==
[2019-04-08 16:53] LABS: #Eosinphils 0.1 thou/uL (0.0-0.7); #Lymphocytes 1.1 thou/uL (1.20-3.40); #Monocytes 0.9 thou/uL (0.11-0.59); #Neutrophils 5.9 thou/uL (1.40-6.50); %Basophils 0.2 % (0.0-1.0); %Eosinophils 0.7 % (0.0-10.0); %Lymphocytes 14.2 % (21.0-51.0); %Monocytes 11.1 % (0.0-10.0); %Neutrophils 73.8 % (42.0-75.0); Hemoglobin 14.8 g/dL (14.0-18.0); Mean Corpuscular Hemoglobin 31.3 pg (27.0-31.0); Mean Corpuscular Volume 94.8 fL (78.0-98.0); Mean Platelet Volume 9.1 fL (7.4-10.4); Platelet Count 214 thou/uL (130-400); RBC Distribution Width 12.3 % (11.5-14.5); Red Blood Cell (RBC) Count 4.74 mill/uL (4.70-6.10)
--- NOTE | 2019-04-08 16:55 | RAD ---
EXAM: Portable chest PROVIDED CLINICAL HISTORY: Chest pain COMPARISON: 11/16/2018 FINDINGS: Cardiac and mediastinal silhouette is unchanged in appearance. Left subclavian cardiac pacing device is again noted with lead tips overlying the expected locations of RA, RV and coronary sinus. Bibasilar subsegmental atelectatic changes are demonstrated. No focal consolidation, pleural fluid or pneumothorax evident. IMPRESSION: No evidence for an acute cardiopulmonary process.
[2019-04-08 17:16] LABS: ALT (SGPT) 17 U/L (8-55); AST (SGOT) 28 U/L (5-34); Albumin 4.2 g/dL (3.4-4.8); Alkaline Phosphatase 73 U/L (40-150); Anion Gap 18 mmol/L (10-20); BUN (Urea Nitrogen) 18 mg/dL (8.4-25.7); Bilirubin, Total 1.1 mg/dL (0.2-1.2); CK (CPK) 86 U/L (30-200); Calc. Creatinine Clearance 0 mL/min (70-130); Calcium 9.2 mg/dL (7.8-10.44); Carbon Dioxide 20 mmol/L (23-31); Chloride 102 mmol/L (98-107); Estimated GFR-MDRD 45; Globulin 3.4 g/dL (2.4-3.5); Glucose 109 mg/dL (80-115); Lipase 24 U/L (8-78); Protein, Total 7.6 g/dL (5.8-8.1); Sodium 136 mmol/L (136-145)
[2019-04-08 17:36] LABS: CKMB 1.1 ng/mL (0-6.6)
[2019-04-08] MEDS ORDERED: Lidocaine 1% w/Epinephrine 1:100K 20 ML VIAL ONE (18:17)
--- NOTE | 2019-04-09 12:12 | EKG ---
Test Reason : Blood Pressure : / mmHG Vent. Rate : 078 BPM Atrial Rate : 078 BPM P-R Int : 122 ms QRS Dur : 156 ms QT Int : 470 ms P-R-T Axes : 013 060 -43 degrees QTc Int : 535 ms Electronic ventricular pacemaker Confirmed by PATRICK SANTOS D.O. ([id number]), health editor TOMY NDIAYE ([id number]) on 04/09/2019 12:12:14 PM Referred By: Confirmed By:PATRICK SANTOS D.O.
== END 2019-04-08 20:06 ==
LOC: ERS 16:22
DX: L02.211 Cutaneous abscess of abdominal wall (principal); L03.116 Cellulitis of left lower limb; I11.0 Hypertensive heart disease with heart failure; I50.9 Heart failure, unspecified; E78.5 Hyperlipidemia, unspecified; E78.00 Pure hypercholesterolemia, unspecified; J44.9 Chronic obstructive pulmonary disease, unspecified; F41.9 Anxiety disorder, unspecified; F17.210 Nicotine dependence, cigarettes, uncomplicated
CPT/HCPCS: 71045; 80053; 82550; 82553; 83690; 84484; 85025; 93005; J2001

== ENCOUNTER 2019-04-08 23:49 | Emergency (ER) | payer MEDICARE, OTHER ==
[2019-04-09 00:22] LABS: #Eosinphils 0.1 thou/uL (0.0-0.7); #Lymphocytes 1.3 thou/uL (1.20-3.40); #Neutrophils 6.8 thou/uL (1.40-6.50); %Basophils 0.2 % (0.0-1.0); %Eosinophils 0.7 % (0.0-10.0); %Lymphocytes 14.3 % (21.0-51.0); %Monocytes 11.1 % (0.0-10.0); %Neutrophils 73.8 % (42.0-75.0); Hemoglobin 13.6 g/dL (14.0-18.0); Mean Corpuscular HGB CONC 33.3 g/dL (32.0-36.0); Mean Corpuscular Hemoglobin 30.9 pg (27.0-31.0); Mean Corpuscular Volume 92.7 fL (78.0-98.0); Mean Platelet Volume 9.2 fL (7.4-10.4); Platelet Count 198 thou/uL (130-400); RBC Distribution Width 12.1 % (11.5-14.5); Red Blood Cell (RBC) Count 4.42 mill/uL (4.70-6.10); White Blood Cell (WBC) Count 9.3 thou/uL (4.8-10.8)
[2019-04-09 00:44] LABS: ALT (SGPT) 15 U/L (8-55); AST (SGOT) 21 U/L (5-34); Alkaline Phosphatase 67 U/L (40-150); Anion Gap 13 mmol/L (10-20); BUN (Urea Nitrogen) 20 mg/dL (8.4-25.7); Calc. Creatinine Clearance 0 mL/min (70-130); Calcium 9.2 mg/dL (7.8-10.44); Carbon Dioxide 24 mmol/L (23-31); Chloride 100 mmol/L (98-107); Estimated GFR-MDRD 38; Globulin 3.3 g/dL (2.4-3.5); Glucose 94 mg/dL (80-115); Potassium 3.4 mmol/L (3.5-5.1); Protein, Total 7.3 g/dL (5.8-8.1); Sodium 134 mmol/L (136-145)
[2019-04-09] MEDS ORDERED: Clindamycin/D5W 600 mg/50 ml Premix Bag ONE (01:11)
[2019-04-09 01:18] LABS: CKMB 1.2 ng/mL (0-6.6)
== END 2019-04-09 01:52 | disposition left against medical advice (07) ==
LOC: ERS 23:49
DX: I11.0 Hypertensive heart disease with heart failure (principal); I50.9 Heart failure, unspecified; N17.9 Acute kidney failure, unspecified; I95.9 Hypotension, unspecified; R79.89 Other specified abnormal findings of blood chemistry; E78.5 Hyperlipidemia, unspecified; E78.00 Pure hypercholesterolemia, unspecified; J44.9 Chronic obstructive pulmonary disease, unspecified; F41.9 Anxiety disorder, unspecified; F17.210 Nicotine dependence, cigarettes, uncomplicated; Z79.899 Other long term (current) drug therapy
CPT/HCPCS: 36415; 80053; 82553; 83605; 83880; 84484; 93005; J3490

== ENCOUNTER 2019-04-09 12:14 | Inpatient (IN) | payer MEDICARE, MEDICAID ==
[2019-04-09 13:06] LABS: #Lymphocytes 1.1 thou/uL (1.20-3.40); #Neutrophils 5.3 thou/uL (1.40-6.50); %Basophils 0.3 % (0.0-1.0); %Eosinophils 0.5 % (0.0-10.0); %Lymphocytes 14.3 % (21.0-51.0); %Monocytes 13.3 % (0.0-10.0); %Neutrophils 71.6 % (42.0-75.0); Hemoglobin 13.7 g/dL (14.0-18.0); Mean Corpuscular HGB CONC 32.9 g/dL (32.0-36.0); Mean Corpuscular Hemoglobin 31.1 pg (27.0-31.0); Mean Corpuscular Volume 94.6 fL (78.0-98.0); Mean Platelet Volume 8.9 fL (7.4-10.4); Platelet Count 183 thou/uL (130-400); White Blood Cell (WBC) Count 7.4 thou/uL (4.8-10.8)
--- NOTE | 2019-04-09 13:10 | RAD ---
EXAM: Portable chest PROVIDED CLINICAL HISTORY: Generalized weakness COMPARISON: 04/08/2019 FINDINGS: Significant interval change with respect to the prior examination is not apparent. IMPRESSION: As above.
[2019-04-09 13:30] LABS: ALT (SGPT) 17 U/L (8-55); AST (SGOT) 21 U/L (5-34); Albumin 4.2 g/dL (3.4-4.8); Alkaline Phosphatase 70 U/L (40-150); Anion Gap 15 mmol/L (10-20); BUN (Urea Nitrogen) 22 mg/dL (8.4-25.7); Bilirubin, Total 1.3 mg/dL (0.2-1.2); Calc. Creatinine Clearance 0 mL/min (70-130); Calcium 9.1 mg/dL (7.8-10.44); Carbon Dioxide 26 mmol/L (23-31); Chloride 98 mmol/L (98-107); Estimated GFR-MDRD 40; Glucose 94 mg/dL (80-115); Potassium 3.3 mmol/L (3.5-5.1); Protein, Total 7.2 g/dL (5.8-8.1); Sodium 136 mmol/L (136-145)
[2019-04-09 13:51] LABS: CKMB 1.4 ng/mL (0-6.6)
[2019-04-09] MEDS ORDERED: Aspirin Chewable 81 MG TAB ONE (13:57)
[2019-04-09] MEDS ORDERED: Nitroglycerin 2% Ointment 1 INCH/1 GM Packet ONE (13:57)
[2019-04-09] MEDS ORDERED: Furosemide 20 MG/2 ML VIAL ONE (14:45)
[2019-04-09] MEDS ORDERED: Potassium Chloride 20 MEQ TAB ONE (14:45)
[2019-04-09 14:47] LABS: Bilirubin Negative (Negative); Blood, Urine Negative (Negative); Clarity Clear (Clear); Glucose, Urine (Dipstick) Normal (Negative); Leukocyte Negative Leu/uL (Negative); Nitrite Negative (Negative); Protein, Urine (Dipstick) Negative (Neg-Trace); Urobilinogen Normal mg/dL (Less than 2)
[2019-04-09] MEDS ORDERED: Ondansetron PF 4 MG/2 ML Vial IVP PRN (16:43)
[2019-04-09] MEDS ORDERED: Ondansetron ODT 4 MG TAB SL PRN (16:43)
[2019-04-09 16:46] LABS: Troponin I 0.031 ng/mL (< 0.028)
[2019-04-09 20:12] LABS: Troponin I 0.031 ng/mL (< 0.028)
[2019-04-10] MEDS ORDERED: Vancomycin HCl 1 GM in Premix Bag 1 BAG IVPB SCH (14:00)
[2019-04-10] MEDS: Furosemide 20 MG/2 ML VIAL SLOW IVP SCH (14:54)
--- NOTE | 2019-04-10 16:14 | HP ---
CHIEF COMPLAINT: Shortness of breath. HISTORY OF PRESENT ILLNESS: This is a 69-year-old black male who came in to the ER for shortness of breath and chest discomfort. He initially came in the night before around 11 o'clock and midnight, and was going to be admitted, but then left AMA, and then came back later that afternoon said he had an emergency and had to run. He also has wounds on the left side of his abdomen and left upper thigh, that were fluctuant and abscessed and they were drained in the ER. Cultures were pending. The patient was just admitted and discharged in the hospital in November of this year for a CHF exacerbation. PAST MEDICAL HISTORY: Positive for CHF, COPD, hypertension, GERD, arthritis, major depression, anemia of chronic disease, hyperlipidemia, on and off O2 supplementation need, history of chronic renal disease stage 2 to 3, history of drug use including cocaine, history of glaucoma, diabetic neuropathy. Echos performed in October of this year showed an ejection fraction of 15% to 20%. PAST SURGICAL HISTORY: No listing of surgical history. ALLERGIES: 1. CODEINE. 2. CYMBALTA. 3. REMERON. 4. NIACIN. MEDICATIONS: 1. Entresto 49/51 one twice a day. 2. Amiodarone 100 mg daily. 3. Protonix 40 mg daily. 4. 325 mg aspirin daily. 5. Iron 325 daily. 6. Gabapentin 600 mg twice a day. 7. He is supposed to have a Breo Ellipta outside of here. I do not see that currently on his med list. 8. He had also been prescribed Lexapro 10 mg a day prior, but I do not see that on his current med list. 9. He had been prescribed carvedilol 3.125 twice a day. I do not see that on his current med list. 10. He had been on atorvastatin 20 mg a day. I do not see that on his current med list. So there are several medicines that he had been prescribed in the past that he is not taking currently and that also includes spironolactone 25 mg daily. SOCIAL HISTORY: The patient still engages in marijuana abuse. Denies alcohol. Denies current smoking of regular cigarettes. REVIEW OF SYSTEMS: He denies any fever or chills. Denied any troubles with visions, troubles with chewing or swallowing. No headache. Denies any hemoptysis. Denies any nausea, vomiting, diarrhea, constipation, abdominal pain, melena, or hematochezia. Denies any dysuria or hematuria. Denies any paresis or paresthesias. Denies any auditory or visual hallucinations. No homicidal or suicidal ideations. Denies any depressive symptoms. IMAGING STUDIES: On his current visit, his chest x-ray was done in the ER. PHYSICAL EXAMINATION: VITAL SIGNS: Showed a temperature of 98.2, pulse in the 70s, respiratory rate 14 to 20, saturating 95% on room air. BP is in 90s/60s. GENERAL: On exam, he is alert, awake, pleasant, oriented x3, conversive, cooperative, lying in bed comfortably, able to reposition without any difficulty. Does state he is hungry. HEENT: Shows a clotted right eye. Otherwise, mucosa is pink and not pale, moist. He has dental caries. NECK: Supple. No JVD. No bruits. No thyromegaly. HEART: S1, S2. No rubs, murmurs, or gallops. I am not appreciating any heaves or lifts. LUNGS: Clear to auscultation bilaterally. No rales, rhonchi, or wheezes. ABDOMEN: Soft, nontender, nondistended. Bowel sounds are hypoactive. He does have a covered dressing over an abscess and cellulitis in his left lower abdomen closer to the flank. MUSCULOSKELETAL: The erythema was outlined with a marker in the ER and that erythema is now well inside the marker. Same for a similar situation on his left upper thigh. Dressing in place and the erythema is well inside the marker that was placed around the original site of erythema in the ER. GENITOURINARY: Deferred. EXTREMITIES: Palpable pulses in all four extremities. No cyanosis, clubbing, or edema. LABORATORY DATA: White count 7.4, hemoglobin is 13.7, platelet count is a 182,000, neutrophils 71.5%, lymphocytes at 14.3%. Chemistries shows sodium 136, potassium 3.3, chloride 98, bicarb 26, BUN is 22, creatinine is 2.04, GFR is 40. AST is 21, ALT is 17, CK-MB 1.4. His troponin was initially 0.37, but then became 0.31 x2. His beta natriuretic peptide is 738. Serum albumin is normal at 4.2. normal at 3.0. His urine was uneventful with no evidence of infection and no protein leakage. ASSESSMENT: Congestive heart failure exacerbation with cellulitis with known stage II possibly III chronic renal disease and chronic obstructive pulmonary disease and hypertension and significant congestive heart failure, systolic, with a last known ejection fraction of 15% to 20% from spring of this year. PLAN: Admit. Give him some diuresis and he is on vanc. Awaiting for the culture results and we will switch to p.o.'s once we have those. Dr. Rae will assume after the weekend. Job ID: [id number]
[2019-04-10] MEDS: Gabapentin 300 MG CAP PO SCH (21:16)
[2019-04-10] MEDS: Sacubitril 49 MG/Valsartan 51 MG TABLET PO SCH (21:18)
[2019-04-11] MEDS: Furosemide 20 MG/2 ML VIAL SLOW IVP SCH ×2 (05:45→13:02)
[2019-04-11 05:49] LABS: #Eosinphils 0.1 thou/uL (0.0-0.7); #Lymphocytes 1.1 thou/uL (1.20-3.40); #Monocytes 0.6 thou/uL (0.11-0.59); #Neutrophils 2.6 thou/uL (1.40-6.50); %Basophils 0.7 % (0.0-1.0); %Eosinophils 1.5 % (0.0-10.0); %Lymphocytes 24.9 % (21.0-51.0); %Monocytes 13.1 % (0.0-10.0); %Neutrophils 59.8 % (42.0-75.0); Hemoglobin 12.7 g/dL (14.0-18.0); Mean Corpuscular HGB CONC 32.2 g/dL (32.0-36.0); Mean Corpuscular Hemoglobin 30.4 pg (27.0-31.0); Mean Corpuscular Volume 94.3 fL (78.0-98.0); Mean Platelet Volume 8.9 fL (7.4-10.4); Platelet Count 173 thou/uL (130-400); RBC Distribution Width 11.7 % (11.5-14.5); Red Blood Cell (RBC) Count 4.18 mill/uL (4.70-6.10); White Blood Cell (WBC) Count 4.4 thou/uL (4.8-10.8)
[2019-04-11 06:09] LABS: Anion Gap 10 mmol/L (10-20); BUN (Urea Nitrogen) 16 mg/dL (8.4-25.7); CRP (Inflammatory) 1.96 mg/dL (= or < 0.5); Calc. Creatinine Clearance 63 mL/min (70-130); Calcium 8.7 mg/dL (7.8-10.44); Carbon Dioxide 25 mmol/L (23-31); Chloride 103 mmol/L (98-107); Estimated GFR-MDRD 65; Glucose 149 mg/dL (80-115); Potassium 3.2 mmol/L (3.5-5.1); Sodium 135 mmol/L (136-145)
[2019-04-11] MEDS ORDERED: Magnesium 2 GM/50 ML 2 GM in Premix Bag 1 BAG IVPB SCH (07:15)
[2019-04-11] MEDS ORDERED: Potassium Chloride 20 MEQ TAB PO SCH (09:00)
[2019-04-11] MEDS: Sacubitril 49 MG/Valsartan 51 MG TABLET PO SCH (10:46)
[2019-04-11] MEDS: Gabapentin 300 MG CAP PO SCH ×2 (10:47→20:53)
[2019-04-11] MEDS: Aspirin 325 mg Enteric Coated Tablet PO SCH ×2 (10:47→10:48)
[2019-04-11] MEDS: Potassium Chloride 20 MEQ TAB PO SCH (10:48)
[2019-04-11] MEDS: Amiodarone 200 MG TAB PO SCH (10:48)
[2019-04-11] MEDS: Ferrous Sulfate 325 MG TAB PO SCH (10:48)
[2019-04-11] MEDS ORDERED: Acetaminophen 500 MG TAB PO PRN (12:41)
[2019-04-11] MEDS: Ipratropium Bromide 2.5 ml Neb NEB SCH ×3 (12:52→23:05)
[2019-04-11] MEDS: cefTRIAXone\\ROCEPHIN 2 GM in Sodium Chloride 0.9% 100 ML IVPB SCH (12:58)
[2019-04-11] MEDS: HYDROcodone/Acetaminophen 10/325 mg Tablet PO PRN ×2 (12:59→20:53)
[2019-04-11 13:35] LABS: Vancomycin, Trough 8.3 ug/mL
[2019-04-11] MEDS: Vancomycin HCl 1.5 GM in Sodium Chloride 0.9% 250 ML 300 ML IVPB SCH (15:00)
[2019-04-11] MEDS: Carvedilol 3.125 MG TAB PO SCH (17:51)
[2019-04-11] MEDS: Mometasone/Formoterol 120 PUFF INHALER INH SCH (18:45)
[2019-04-11 19:01] LABS: Amphetamine Not Detected (NotDetected); Barbiturates Screen Not Detected (NotDetected); Benzodiazepine Screen Not Detected (NotDetected); Cocaine Metabolite Screen Not Detected (NotDetected); Medtox Control Line Valid? VALID (VALID); Medtox Reader # READER 4; Methadone Not Detected (NotDetected); Methamphetamine Not Detected (NotDetected); Opiate Screen Detected (NotDetected); Oxycodone Screen Not Detected (NotDetected); Phencyclidine (PCP) Not Detected (NotDetected); THC/Cannabinoid Screen Detected (NotDetected); Tricyclic Screen Not Detected (NotDetected)
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
--- NOTE | 2019-04-11 21:30 | CON ---
DATE OF CONSULTATION: HISTORY OF PRESENT ILLNESS: Humberto Sandhu is a 69-year-old black male who is followed with Dr. Forbes in the past. He has a longstanding history of nonischemic cardiomyopathy. Apparently, he had a cardiac catheterization in the past, which did not reveal any significant coronary artery disease. It took some time to convince him to undergo ICD placement because he "chickened out." Dual-chamber ICD was placed and ultimately he had right ventricular lead dislodgement and that had to be repositioned. He then developed left bundle-branch block and ultimately he underwent upgrade to a biventricular ICD. This was sometime in November. He states that his breathing and energy level did improve after that. He now is admitted with increased shortness of breath. It is of note that, he was on carvedilol 3.125 b.i.d. in the past that is not amongst his current medicines. His last ejection fraction was 15% to 20%. PAST MEDICAL HISTORY: COPD, hypertension, GERD, hyperlipidemia, substance abuse including cocaine and methamphetamines, chronic kidney disease, diabetes. ALLERGIES: CODEINE, CYMBALTA, REMERON, AND NIACIN. CURRENT MEDICATIONS: 1. Amiodarone 100 mg daily. 2. Entresto 49/51 b.i.d. 3. Aspirin 325 daily. 4. Ferrous sulfate 325 daily. 5. Gabapentin 600 mg b.i.d. 6. Pantoprazole 40 daily. 7. He also was placed on torsemide 20 mg every day according to the [facility] records, but again this is not amongst his current medications. SOCIAL HISTORY: He continues to smoke marijuana. He stopped smoking cigarettes. He does not drink. REVIEW OF SYSTEMS: A 12-point review of systems is otherwise unremarkable. PHYSICAL EXAMINATION: VITAL SIGNS: Blood pressure 109/68, pulse of 68. HEENT: PERRL. NECK: Supple. CHEST: Clear. CARDIAC: S1 and S2 normal without any S3, S4, or murmurs. ABDOMEN: Normal bowel sounds without tenderness. EXTREMITIES: Reveal no clubbing, cyanosis, or edema. NEUROLOGIC: Grossly intact. SKIN: Warm and dry. LABORATORY DATA: EKG reveals atrial sensing, biventricular pacing. Hemoglobin 12.7, hematocrit 39.4, white count 4400, platelets 173,000. Sodium 135, potassium 3.2, chloride 103, carbon dioxide 25, BUN 16, creatinine 1.33. Troponin I 0.031 (chronically elevated troponin I). BNP 1077.4. IMPRESSION: 1. Nonischemic cardiomyopathy. Torsemide and carvedilol are not amongst his current medications. 2. Status post upgrade to biventricular ICD. 3. Hypertension. 4. Hypercholesterolemia. PLAN: [facility] will be performed to re-evaluate his volume status. His creatinine is much lower than previously, probably because he is not on the torsemide. Currently, he is on Lasix 20 mg IV b.i.d. since being admitted. Also carvedilol has been restarted. We will follow the patient with you. Job ID: [id number] MTDD
[2019-04-12] MEDS: Furosemide 20 MG/2 ML VIAL SLOW IVP SCH ×2 (05:36→13:52)
[2019-04-12 06:12] LABS: Eosinophils 3 % (0-10); Hemoglobin 13.4 g/dL (14.0-18.0); Lymphocytes 21 % (21-51); MDiff Complete? YES; Mean Corpuscular HGB CONC 33.4 g/dL (32.0-36.0); Mean Corpuscular Volume 92.8 fL (78.0-98.0); Mean Platelet Volume 10.1 fL (7.4-10.4); Metamyelocyte 1 % (0-0); Monocytes 11 % (0-10); Neutrophil 64 % (42-75); Platelet Count 147 thou/uL (130-400); Platelet Morphology Comment Appears Adequate; RBC Distribution Width 11.8 % (11.5-14.5); Red Blood Cell (RBC) Count 4.33 mill/uL (4.70-6.10); White Blood Cell (WBC) Count 5.1 thou/uL (4.8-10.8)
[2019-04-12 06:17] LABS: Anion Gap 13 mmol/L (10-20); BUN (Urea Nitrogen) 15 mg/dL (8.4-25.7); Calc. Creatinine Clearance 60 mL/min (70-130); Carbon Dioxide 22 mmol/L (23-31); Chloride 103 mmol/L (98-107); Estimated GFR-MDRD 59; Glucose 90 mg/dL (80-115); Potassium 3.8 mmol/L (3.5-5.1); Sodium 134 mmol/L (136-145)
[2019-04-12] MEDS: Ipratropium Bromide 2.5 ml Neb NEB SCH ×3 (06:43→18:35)
[2019-04-12] MEDS: Mometasone/Formoterol 120 PUFF INHALER INH SCH ×2 (06:50→18:42)
[2019-04-12] MEDS: Gabapentin 300 MG CAP PO SCH ×2 (08:46→20:59)
[2019-04-12] MEDS: Aspirin 325 mg Enteric Coated Tablet PO SCH (08:46)
[2019-04-12] MEDS: Carvedilol 3.125 MG TAB PO SCH ×2 (08:46→18:12)
[2019-04-12] MEDS: Amiodarone 200 MG TAB PO SCH (08:47)
[2019-04-12] MEDS: Ferrous Sulfate 325 MG TAB PO SCH (08:47)
[2019-04-12] MEDS: Potassium Chloride 20 MEQ TAB PO SCH (08:47)
[2019-04-12] MEDS: HYDROcodone/Acetaminophen 10/325 mg Tablet PO PRN ×2 (08:50→13:59)
[2019-04-12] MEDS: cefTRIAXone\\ROCEPHIN 2 GM in Sodium Chloride 0.9% 100 ML IVPB SCH (13:52)
[2019-04-12] MEDS: Vancomycin HCl 1.5 GM in Sodium Chloride 0.9% 250 ML 300 ML IVPB SCH (14:51)
--- NOTE | 2019-04-12 17:41 | PRG ---
DATE OF SERVICE: 04/12/2019 HISTORY OF PRESENT ILLNESS: After making medication changes recommended by congestive heart failure nurse, Cardiology had no further recommendations. I do agree long-term patient would be better served on torsemide and Entresto; however, blood pressures were not tolerating that, did not make formal recommendation to change to torsemide instead of furosemide while inpatient. We will default to any further medication changes to Cardiology from that standpoint. The patient has been slowly weaned off nasal cannula except for while he is sleeping, which is his baseline at home given his COPD and CHF history. White blood cell count of 5.1 this morning, hemoglobin of 13.4. Creatinine of 1.4, sodium of 134, potassium improved with replacement yesterday of 3.8. UDS did come back with positive cannabinoids, opiates. The patient did report that he got a prescription from Dr. Serrano's office regarding Tylenol No. 3s. Does have a history of codeine intolerance. Does report that he sometimes will see things, which were improved by "taking narcotics." PHYSICAL EXAMINATION: VITAL SIGNS: Temperature of 97.7, pulse of 61, respiratory rate of 18, oxygen saturation 94% on room air, and blood pressure 113/70. GENERAL: The patient is alert and oriented, in no acute distress. HEENT: Head is normocephalic and atraumatic. Extraocular movements are intact. Oral mucosa is moist. Eye exam, his right pupil is opacified, which is his baseline. NECK: Supple. HEART: Regular rate and rhythm. AICD is intact to left chest wall. LUNGS: Clear to auscultation bilaterally. No rubs or wheezes. ABDOMEN: Soft, nontender. Positive bowel sounds throughout. Left abdomen wound continues without fluctuance, is still indurated and heme-crusted. Left thigh, no longer producing purulent material. No erythema or induration extending much improved following Rocephin initiation yesterday. Gauze overlay intact to both areas prior to examination. NEUROLOGIC: The patient is alert and oriented x3. No focal deficits. Speech is normal. ASSESSMENT AND PLAN: 1. Congestive heart failure exacerbation abscess to soft tissue of abdomen and thigh. 2. Chronic kidney disease, stage 3. 3. Chronic obstructive pulmonary disease. 4. Hypokalemia. 5. Hypotension, slow improvement on all fronts. Continuing vancomycin and Rocephin for another 24 hours, likely change to oral agent for 24 hours prior to discharge following that. As above, we would default to any further medication changes recommended by Cardiology. Otherwise, planning to discharge the patient to home on prior home medications and follow up with [facility]. The patient appears to be baseline regarding his chronic obstructive pulmonary disease history with p.r.n. oxygen at night. Does report that his dry weight is typically several pounds lower than what it is currently. We will continue to follow along. Job ID: [id number]
[2019-04-13] MEDS: Ipratropium Bromide 2.5 ml Neb NEB SCH ×4 (00:13→18:20)
[2019-04-13 05:28] LABS: Anion Gap 15 mmol/L (10-20); BUN (Urea Nitrogen) 15 mg/dL (8.4-25.7); Calc. Creatinine Clearance 52 mL/min (70-130); Calcium 9.2 mg/dL (7.8-10.44); Carbon Dioxide 23 mmol/L (23-31); Chloride 103 mmol/L (98-107); Estimated GFR-MDRD 54; Glucose 102 mg/dL (80-115); Potassium 4.2 mmol/L (3.5-5.1); Sodium 137 mmol/L (136-145)
[2019-04-13] MEDS: Furosemide 20 MG/2 ML VIAL SLOW IVP SCH ×2 (06:07→13:31)
[2019-04-13] MEDS: Mometasone/Formoterol 120 PUFF INHALER INH SCH ×2 (07:09→18:22)
[2019-04-13] MEDS: Potassium Chloride 20 MEQ TAB PO SCH (08:58)
[2019-04-13] MEDS: Gabapentin 300 MG CAP PO SCH ×2 (08:59→20:52)
[2019-04-13] MEDS: Aspirin 325 mg Enteric Coated Tablet PO SCH (08:59)
[2019-04-13] MEDS: Ferrous Sulfate 325 MG TAB PO SCH (08:59)
[2019-04-13] MEDS: Amiodarone 200 MG TAB PO SCH (08:59)
[2019-04-13] MEDS: HYDROcodone/Acetaminophen 10/325 mg Tablet PO PRN ×2 (09:01→13:47)
--- NOTE | 2019-04-13 13:25 | PRG ---
DATE OF SERVICE: 04/13/2019 SUBJECTIVE: Mr. Sandhu states he is feeling okay, but his oxygen saturations are low at times. He is receiving intravenous antibiotics as well as intravenous furosemide. OBJECTIVE: VITAL SIGNS: Blood pressure 103/66, pulse 70 and it is regular. LUNGS: Clear. CARDIAC: Normal S1 and normal S2. ABDOMEN: Soft and nontender. EXTREMITIES: There is no edema. ASSESSMENT: 1. Congestive heart failure, systolic, chronic, with severely depressed left ventricular function. 2. Cellulitis. 3. Relatively low blood pressure. PLAN: 1. Try to resume Entresto at least at low dose tomorrow. 2. Continue IV diuretics. 3. We will follow with you. Job ID: [id number]
[2019-04-13] MEDS: cefTRIAXone\\ROCEPHIN 2 GM in Sodium Chloride 0.9% 100 ML IVPB SCH (13:28)
[2019-04-13 13:52] LABS: Vancomycin, Trough 16.8 ug/mL
[2019-04-13] MEDS: Vancomycin HCl 1.5 GM in Sodium Chloride 0.9% 250 ML 300 ML IVPB SCH (15:00)
[2019-04-13] MEDS: Sulfameth/Trimethoprim DS 800-160mg TAB PO SCH (20:52)
[2019-04-13] MEDS: Cephalexin 250 MG CAP PO SCH (20:52)
--- NOTE | 2019-04-13 23:54 | PRG ---
DATE OF SERVICE: 04/13/2019 HISTORY OF PRESENT ILLNESS: The patient continues slow progress regarding diuretics. Cardiology is recommending shift back to [facility] from [facility]. The patient has struggled with hypotensive episodes throughout hospitalization. The patient is using p.r.n. oxygen while sleeping, which is at baseline at home. Regarding his COPD and CHF status, the patient has no additional acute complaints. Denies any fevers. Reports his wounds are progressing with wound care slowly. No new drainage per patient. PHYSICAL EXAMINATION: VITAL SIGNS: Temperature of 98.0, pulse of 65, oxygen saturation of 92% on room air, blood pressure 104/65, respiratory rate of 18. GENERAL: The patient is alert and oriented, in no acute distress. HEENT: Head is normocephalic and atraumatic. Extraocular movements are intact. Opacified pupil to right side at the patient's baseline. Oral mucosa is moist. NECK: Supple. HEART: Regular rate and rhythm at the time of exam. No murmurs auscultated. No rubs or wheezes to lungs bilaterally. ABDOMEN: Soft other than induration surrounding the abscess site to left abdomen. Induration only. No fluctuance. I and D was performed. It is heme-crusted with no active exudates. Left thigh without any extending erythema, pallor, or induration. Bandages still intact from last change. Yesterday, he had no further purulent discharge. The patient denies any discharge with wound care changing today. Creatinine of 1.5, potassium of 4.2, sodium 137. ASSESSMENT AND PLAN: Congestive heart failure exacerbation, chronic obstructive pulmonary disease, hypotension, abscess with soft tissue cellulitis infection. The patient is progressing slowly, but steadily. The patient is continued on Lasix, likely will be discharged with home torsemide. Returning back to [facility] as long as blood pressures keep up. We will plan to bridge patient this evening on orals with Bactrim and Keflex for both strep and staph coverage as no blood cultures grew out anything. We will look to hopefully deescalate IV antibiotics tomorrow after additional doses, potentially look at discharge if the patient is stable on Thursday. Continuing Dulera and DuoNeb p.r.n. regarding COPD and p.r.n. oxygen at night and while sleeping. Currently using hydrocodone for pain control with wound care. The patient is on baseline of gabapentin regarding chronic pain, given his multiple histories of drug abuse including cocaine, most currently cannabinoids. Have no plans to continue on outpatient basis narcotics. Job ID: [id number]
[2019-04-14] MEDS: Ipratropium Bromide 2.5 ml Neb NEB SCH ×4 (00:17→18:47)
[2019-04-14 04:48] LABS: #Eosinphils 0.1 thou/uL (0.0-0.7); #Lymphocytes 1.2 thou/uL (1.20-3.40); #Monocytes 0.6 thou/uL (0.11-0.59); #Neutrophils 3.4 thou/uL (1.40-6.50); %Basophils 0.2 % (0.0-1.0); %Eosinophils 2.3 % (0.0-10.0); %Lymphocytes 23.1 % (21.0-51.0); %Monocytes 10.5 % (0.0-10.0); %Neutrophils 63.9 % (42.0-75.0); Hemoglobin 12.6 g/dL (14.0-18.0); Mean Corpuscular HGB CONC 33.8 g/dL (32.0-36.0); Mean Corpuscular Hemoglobin 31.9 pg (27.0-31.0); Mean Corpuscular Volume 94.4 fL (78.0-98.0); Mean Platelet Volume 9.9 fL (7.4-10.4); Platelet Count 142 thou/uL (130-400); RBC Distribution Width 11.8 % (11.5-14.5); Red Blood Cell (RBC) Count 3.95 mill/uL (4.70-6.10); White Blood Cell (WBC) Count 5.3 thou/uL (4.8-10.8)
[2019-04-14 05:05] LABS: Anion Gap 11 mmol/L (10-20); BUN (Urea Nitrogen) 15 mg/dL (8.4-25.7); Calc. Creatinine Clearance 60 mL/min (70-130); Calcium 8.8 mg/dL (7.8-10.44); Carbon Dioxide 24 mmol/L (23-31); Chloride 103 mmol/L (98-107); Estimated GFR-MDRD 63; Glucose 86 mg/dL (80-115); Potassium 3.9 mmol/L (3.5-5.1); Sodium 134 mmol/L (136-145)
[2019-04-14] MEDS: Furosemide 20 MG/2 ML VIAL SLOW IVP SCH ×2 (05:43→17:10)
[2019-04-14] MEDS: Mometasone/Formoterol 120 PUFF INHALER INH SCH ×2 (07:29→18:50)
[2019-04-14] MEDS ORDERED: Potassium Chloride 20 MEQ TAB PO SCH (08:00)
[2019-04-14] MEDS: Sulfameth/Trimethoprim DS 800-160mg TAB PO SCH ×2 (08:15→20:40)
[2019-04-14] MEDS: Gabapentin 300 MG CAP PO SCH ×2 (08:16→20:40)
[2019-04-14] MEDS: Cephalexin 250 MG CAP PO SCH ×2 (08:16→20:39)
[2019-04-14] MEDS: Aspirin 325 mg Enteric Coated Tablet PO SCH (08:17)
[2019-04-14] MEDS: Ferrous Sulfate 325 MG TAB PO SCH (08:17)
[2019-04-14] MEDS: Amiodarone 200 MG TAB PO SCH (08:17)
[2019-04-14] MEDS: HYDROcodone/Acetaminophen 10/325 mg Tablet PO PRN ×2 (11:22→20:43)
[2019-04-14] MEDS: Vancomycin HCl 1.5 GM in Sodium Chloride 0.9% 250 ML 300 ML IVPB SCH (13:21)
--- NOTE | 2019-04-14 18:00 | PRG ---
DATE OF SERVICE: 04/14/2019 HISTORY OF PRESENT ILLNESS: The patient continues to have labile blood pressures, not fully tolerating Entresto at this point in time, although ordered. He still requiring nasal cannula when sleeping p.r.n., although no documented desaturations at this point in time. The patient appears at his baseline for CHF and COPD. Case Management is working for wound care with interim home health orders as well as continued physical therapy evaluation. The patient resides at [place] at this point in time. Plan to return the patient there. The patient's wounds are progressing well to left abdomen and thigh. The patient has tolerated oral Bactrim and Keflex at this point in time transitioning from IV Rocephin and vancomycin. Review of vital signs; O2 saturations of 93% on room air, temperature of 97.9, pulse of 64, respiratory rate of 16, and blood pressure 109/72. Creatinine of 1.3, sodium of 134, and potassium of 3.9. PHYSICAL EXAMINATION: GENERAL: The patient is alert and oriented, in no acute distress. HEENT: Head is normocephalic and atraumatic. Extraocular movements are intact. Right pupil is opacified. Nasal cannula in place at the time of my exam. Oral mucosa is moist. NECK: Supple. HEART: Regular rate and rhythm at the time of exam. No murmurs auscultated. LUNGS: Clear to auscultation bilaterally. No rubs or wheezes. ABDOMEN: Soft and nontender. Positive bowel sounds throughout. SKIN: Left abdomen wound site with softening and induration. No fluctuance. No erythema or pallor. Heme crust and dressing overlying intact. Left thigh with no extending erythema, pallor, or induration. Wound covered with gauze and intact. EXTREMITIES: Lower extremities without cyanosis or edema. NEUROLOGIC: The patient alert and oriented x3. No focal deficits. Speech is normal. ASSESSMENT AND PLAN: Congestive heart failure exacerbation. The patient returning back toward baseline, although remains hypotensive, not fully tolerating his quality metric medications such as Entresto. He has not been able to tolerate beta jose secondarily as well. Per Cardiology rather have the patient on Entresto than beta-jose. I would rather have the patient on torsemide on outpatient basis than furosemide, currently transitioning from furosemide IV to oral. The patient's kidneys remain fragile, chronic kidney disease stage 3. We will transition vancomycin to oral agents, Bactrim and Keflex as above. The patient's hypokalemia is resolved, although given trend may discharge the patient on 40 mEq daily. Chronic obstructive pulmonary disease appears at baseline. Continuing Dulera and p.r.n. breathing treatments. The patient appears to be using his home Incruse at bedside, although Spiriva has been ordered. If the patient's blood pressure tolerates Entresto, likely discharge tomorrow. Job ID: [id number]
--- NOTE | 2019-04-14 19:16 | PRG ---
DATE OF SERVICE: 04/14/2019 SUBJECTIVE: Mr. Sandhu is feeling better. His breathing is improved. OBJECTIVE: VITAL SIGNS: His blood pressure 109/72, pulse 64 and regular. LUNGS: Clear. CARDIAC: Normal S1, normal S2. ASSESSMENT: 1. Cellulitis. 2. Congestive heart failure, systolic, chronic, improved. PLAN: Continue current medical regimen. He is now on oral diuretics. Job ID: [id number]
[2019-04-15] MEDS: Ipratropium Bromide 2.5 ml Neb NEB SCH ×4 (00:21→19:25)
[2019-04-15] MEDS: HYDROcodone/Acetaminophen 10/325 mg Tablet PO PRN (05:58)
[2019-04-15] MEDS: Furosemide 20 MG TAB PO SCH ×2 (05:59→14:42)
[2019-04-15] MEDS: Mometasone/Formoterol 120 PUFF INHALER INH SCH ×2 (06:46→19:25)
[2019-04-15] MEDS: Amiodarone 200 MG TAB PO SCH (09:44)
[2019-04-15] MEDS: Sulfameth/Trimethoprim DS 800-160mg TAB PO SCH ×2 (09:44→21:08)
[2019-04-15] MEDS: Gabapentin 300 MG CAP PO SCH ×2 (09:44→21:07)
[2019-04-15] MEDS: Potassium Chloride 20 MEQ TAB PO SCH (09:44)
[2019-04-15] MEDS: Aspirin 325 mg Enteric Coated Tablet PO SCH (09:44)
[2019-04-15] MEDS: Ferrous Sulfate 325 MG TAB PO SCH (09:44)
[2019-04-15] MEDS: Cephalexin 250 MG CAP PO SCH ×2 (09:52→21:42)
--- NOTE | 2019-04-15 10:18 | PRG ---
DATE OF SERVICE: 04/15/2019 SUBJECTIVE: Mr. Sandhu is breathing well. He has no chest pain or pressure, but he states he is really having a lot trouble voiding. OBJECTIVE: VITAL SIGNS: Blood pressure 110/69, pulse 63 and regular. LUNGS: Clear. CARDIAC: Normal S1, normal S2. ASSESSMENT: 1. Congestive heart failure, systolic, chronic, stable. 2. Cellulitis, being treated. 3. Difficulty voiding. PLAN: 1. Check urinary residual. 2. Back on initial home dose of Entresto. 3. Tolerating diuretics well. No further recommendations from a cardiac standpoint. Job ID: [id number]
[2019-04-15 10:30] LABS: Bacteria/HPF None Seen HPF (None Seen); Bilirubin Negative (Negative); Blood, Urine Negative (Negative); Clarity Clear (Clear); Glucose, Urine (Dipstick) Normal (Negative); Leukocyte Negative Leu/uL (Negative); Nitrite Negative (Negative); Protein, Urine (Dipstick) Negative (Neg-Trace); RBC/HPF 0-3 HPF (0-3); Squamous Epithelial None Seen HPF (0-3); Urobilinogen Normal mg/dL (Less than 2); WBC/HPF 0-3 HPF (0-3)
[2019-04-15] MEDS ORDERED: Tamsulosin HCl 0.4 MG CAP PO SCH (10:54)
[2019-04-15] MEDS: Zolpidem Tartrate 5 MG TAB PO SCH (21:08)
[2019-04-16] MEDS: Ipratropium Bromide 2.5 ml Neb NEB SCH ×4 (01:19→19:14)
[2019-04-16 05:16] LABS: #Eosinphils 0.1 thou/uL (0.0-0.7); #Lymphocytes 1.6 thou/uL (1.20-3.40); #Monocytes 0.7 thou/uL (0.11-0.59); #Neutrophils 4.6 thou/uL (1.40-6.50); %Basophils 0.4 % (0.0-1.0); %Eosinophils 1.8 % (0.0-10.0); %Lymphocytes 23.1 % (21.0-51.0); %Monocytes 10.1 % (0.0-10.0); %Neutrophils 64.6 % (42.0-75.0); Mean Corpuscular HGB CONC 33.6 g/dL (32.0-36.0); Mean Corpuscular Hemoglobin 31.5 pg (27.0-31.0); Mean Corpuscular Volume 93.8 fL (78.0-98.0); Mean Platelet Volume 9.8 fL (7.4-10.4); Platelet Count 180 thou/uL (130-400); RBC Distribution Width 12.2 % (11.5-14.5); Red Blood Cell (RBC) Count 4.43 mill/uL (4.70-6.10); White Blood Cell (WBC) Count 7.1 thou/uL (4.8-10.8)
[2019-04-16 05:55] LABS: ALT (SGPT) 18 U/L (8-55); AST (SGOT) 26 U/L (5-34); Albumin 3.8 g/dL (3.4-4.8); Alkaline Phosphatase 71 U/L (40-110); Anion Gap 16 mmol/L (10-20); BUN (Urea Nitrogen) 21 mg/dL (8.4-25.7); Bilirubin, Total 0.9 mg/dL (0.2-1.2); Calc. Creatinine Clearance 40 mL/min (70-130); Carbon Dioxide 21 mmol/L (23-31); Chloride 101 mmol/L (98-107); Estimated GFR-MDRD 41; Glucose 82 mg/dL (80-115); Potassium 4.7 mmol/L (3.5-5.1); Protein, Total 7.8 g/dL (5.8-8.1); Sodium 133 mmol/L (136-145)
[2019-04-16] MEDS: Mometasone/Formoterol 120 PUFF INHALER INH SCH ×2 (08:00→19:16)
[2019-04-16] MEDS ORDERED: Furosemide 40 MG TAB PO SCH (09:00)
[2019-04-16] MEDS ORDERED: Furosemide 20 MG TAB PO SCH (09:00)
[2019-04-16] MEDS: Cephalexin 250 MG CAP PO SCH ×2 (09:15→21:11)
[2019-04-16] MEDS: Potassium Chloride 20 MEQ TAB PO SCH (09:16)
[2019-04-16] MEDS: Amiodarone 200 MG TAB PO SCH (09:16)
[2019-04-16] MEDS: Gabapentin 300 MG CAP PO SCH ×2 (09:16→21:11)
[2019-04-16] MEDS: Sulfameth/Trimethoprim DS 800-160mg TAB PO SCH ×2 (09:16→21:11)
[2019-04-16] MEDS: Tamsulosin HCl 0.4 MG CAP PO SCH (09:16)
[2019-04-16] MEDS: Ferrous Sulfate 325 MG TAB PO SCH (09:16)
[2019-04-16] MEDS: Aspirin 325 mg Enteric Coated Tablet PO SCH (09:17)
[2019-04-16 13:47] LABS: Anion Gap 15 mmol/L (10-20); BUN (Urea Nitrogen) 23 mg/dL (8.4-25.7); Calc. Creatinine Clearance 38 mL/min (70-130); Calcium 9.1 mg/dL (7.8-10.44); Carbon Dioxide 22 mmol/L (23-31); Chloride 101 mmol/L (98-107); Estimated GFR-MDRD 39; Glucose 102 mg/dL (80-115); Sodium 133 mmol/L (136-145)
[2019-04-16] MEDS: Zolpidem Tartrate 5 MG TAB PO SCH (21:12)
--- NOTE | 2019-04-16 23:22 | PRG ---
DATE OF SERVICE: 04/16/2019 HISTORY OF PRESENT ILLNESS: The patient's creatinine elevated following urinary obstruction, which resolved with Mcgraw catheter. His blood pressures remained low after titrating to Entresto b.i.d. and continuation on Lasix. The patient states he feels much better, however, after taking an Ambien and getting a good night's sleep. We are attempting to discontinue Mcgraw later today and see if the patient needs a catheterization again. Vital signs; temperature of 98.0, pulse of 87, respiratory rate of 16, oxygen saturation 99% on 2 L nasal cannula while sleeping, and blood pressure 100/68. Creatinine trended following urinary obstruction from 1.3 to 1.96 to 2.0 this afternoon. PHYSICAL EXAMINATION: GENERAL: The patient is alert and oriented, in no acute distress. HEENT: Head is normocephalic and atraumatic. Extraocular movements are intact. Right pupil is opacified. Oral mucosa is moist. NECK: Supple. HEART: Regular rate and rhythm at time of exam. No murmurs are auscultated. LUNGS: Clear to auscultation bilaterally. No rubs or wheezes. ABDOMEN: Soft, nontender. Positive bowel sounds throughout. Resolved erythema and induration of both abdomen and left thigh wounds. Dressing intact over incision and drainage sites. No evidence beyond mild serous discharge present. LOWER EXTREMITIES: Without cyanosis or edema. NEUROLOGIC: The patient is alert and oriented x3. No focal deficits. Speech is normal. ASSESSMENT AND PLAN: Cellulitis, largely resolved. We will complete out antibiotic course over the weekend and then discontinue antibiotics. Attempting to separate Entresto and Lasix out, but we will trend the creatinine. Hopefully, we will be able to titrate BP medications as well as Lasix back up and discharge the patient hopefully in the next two days. If renal function is not improving, may look at consulting Nephrology or Urology depending on the patient retaining any further urine. I feel Mcgraw catheter has alleviated the patient's acute kidney injury as far as causes. The patient will be discharged with home health, physical therapy, wound care, and nursing back to [place] unless he decompensates further. The patient has systolic heart failure with AICD in place and chronic kidney disease, stage 3 at baseline. Job ID: [id number]
[2019-04-17] MEDS: Ipratropium Bromide 2.5 ml Neb NEB SCH ×4 (00:14→18:19)
[2019-04-17 05:26] LABS: Anion Gap 18 mmol/L (10-20); BUN (Urea Nitrogen) 27 mg/dL (8.4-25.7); Calc. Creatinine Clearance 34 mL/min (70-130); Calcium 8.6 mg/dL (7.8-10.44); Carbon Dioxide 16 mmol/L (23-31); Chloride 102 mmol/L (98-107); Estimated GFR-MDRD 34; Glucose 135 mg/dL (80-115); Potassium 4.8 mmol/L (3.5-5.1); Sodium 131 mmol/L (136-145)
[2019-04-17] MEDS: Mometasone/Formoterol 120 PUFF INHALER INH SCH ×2 (06:46→18:18)
[2019-04-17] MEDS: Ferrous Sulfate 325 MG TAB PO SCH (08:23)
[2019-04-17] MEDS: Midodrine HCl 5 MG TAB PO SCH ×3 (08:23→20:22)
[2019-04-17] MEDS: Aspirin 325 mg Enteric Coated Tablet PO SCH (08:24)
[2019-04-17] MEDS: Gabapentin 300 MG CAP PO SCH ×2 (08:24→20:23)
[2019-04-17] MEDS: Amiodarone 200 MG TAB PO SCH (08:24)
[2019-04-17] MEDS: Sulfameth/Trimethoprim DS 800-160mg TAB PO SCH ×2 (08:24→20:23)
[2019-04-17] MEDS: Furosemide 40 MG/4 ML VIAL SLOW IVP SCH ×2 (08:24→08:46)
[2019-04-17] MEDS: Potassium Chloride 20 MEQ TAB PO SCH (08:24)
[2019-04-17] MEDS: Tamsulosin HCl 0.4 MG CAP PO SCH (08:24)
[2019-04-17] MEDS: Furosemide 80 MG TAB PO SCH (08:56)
[2019-04-17] MEDS: HYDROcodone/Acetaminophen 10/325 mg Tablet PO PRN ×2 (08:59→20:30)
[2019-04-17] MEDS: Cephalexin 250 MG CAP PO SCH ×2 (09:43→20:22)
[2019-04-17 13:39] LABS: Anion Gap 16 mmol/L (10-20); BUN (Urea Nitrogen) 30 mg/dL (8.4-25.7); Calc. Creatinine Clearance 29 mL/min (70-130); Calcium 9.2 mg/dL (7.8-10.44); Carbon Dioxide 19 mmol/L (23-31); Chloride 100 mmol/L (98-107); Estimated GFR-MDRD 28; Glucose 135 mg/dL (80-115); Sodium 130 mmol/L (136-145)
--- NOTE | 2019-04-17 18:13 | ULT ---
RENAL ULTRASOUND: History: Acute renal insufficiency. FINDINGS: Real-time imaging of the right and left kidneys were performed. Right kidney measures 9.9 and the lef t kidney 8.5 cm in size. No signs of cysts, mass, or obstruction. The bladder is not distended as there is a catheter in place. The prostate appears somewhat enlarged. IMPRESSION: Mild cortical thinning in both kidneys. No obstruction or mass. POS: CHRISTOPHER
--- NOTE | 2019-04-17 19:13 | PRG ---
DATE OF SERVICE: 04/17/2019 HISTORY OF PRESENT ILLNESS: The patient required in and out catheterization overnight, was unable to tolerate discontinue of Mcgraw even despite initiation of tamsulosin. Creatinine is worsening. The patient states he still feels fine, but verbalizes understanding that it is difficult for him to urinate without Mcgraw catheter. Verbalized understanding regarding Nephrology and Urology workups prior to discharge. The patient's blood pressure continues to be labile on the low side. The patient did tolerate all of his medications today with the addition of midodrine with regard to his Entresto and Lasix. Vital signs; temperature of 97.6, pulse of 61, respiratory rate of 20, oxygen saturation 93% on room air, and blood pressure of 93/60. Sodium 131, potassium of 4.8, creatinine of 2.3, rechecked at 1 o'clock today went up to 2.7. Renal ultrasound was ordered per Nephrology's recommendations. No acute obstruction or masses. Mild cortical thinning bilaterally. PHYSICAL EXAMINATION: GENERAL: The patient is alert and oriented, in no acute distress. HEENT: Head is normocephalic and atraumatic. Extraocular movements are intact. Right pupil is opacified, which is his baseline. Oral mucosa is moist. NECK: Supple. HEART: Regular rate and rhythm. No murmurs auscultated. LUNGS: Clear to auscultation bilaterally. No rubs or wheezes. ABDOMEN: Soft and nontender. Positive bowel sounds throughout. No palpable bladder. EXTREMITIES: Lower extremities without cyanosis or edema. Wounds are well covered. Dressings intact in abdomen and left thigh. No extending erythema, pallor, or fluctuance. NEUROLOGIC: The patient is alert and oriented x3. No focal deficits. Speech is normal. ASSESSMENT AND PLAN: Congestive heart failure exacerbation, abscess, chronic kidney disease stage 3 with acute renal insufficiency on top of that, chronic obstructive pulmonary disease, hypokalemia which is currently resolved, hypotension improved with midodrine, urinary obstruction treating with Mcgraw catheter. I feel acute renal insufficiency is likely secondary to obstruction from prostate, but cannot rule out acute cardiorenal syndrome seeking Nephrology's input there and likely, we will send the patient home with Mcgraw catheter to be established with Urology. Hopefully, he can be evaluated while inpatient and see if they agree with current management to follow up outpatient. We will continue to trend creatinine otherwise and continue current medications. Goal of possible to have the patient tolerating Lasix twice daily and Entresto twice daily. We will see if can titrate tomorrow. We will continue tamsulosin, otherwise the time being. The patient's lungs are at his baseline with p.r.n. oxygen at night. We will look to discontinue antibiotics likely tomorrow as completion of therapy. Job ID: [id number]
[2019-04-17] MEDS: Zolpidem Tartrate 5 MG TAB PO SCH (20:23)
--- NOTE | 2019-04-17 20:51 | CON ---
DATE OF CONSULTATION: REASON FOR CONSULTATION: Elevated creatinine. HISTORY OF PRESENT ILLNESS: This is a very pleasant 69-year-old gentleman, who presented to the hospital for shortness of breath on April 09. His creatinine baseline was 2, improved to 1.3 and has increased to 2.7 today. The patient has been hypotensive on and off. The patient did not receive any nephrotoxic medication. PAST MEDICAL HISTORY: Include CHF, COPD, GERD, arthritis, depression, anemia, CKD, glaucoma, diabetic neuropathy, EF 50%. ALLERGIES: REVIEWED. HOME MEDICATIONS: List reviewed. HOSPITAL MEDICATIONS: Reviewed. REVIEW OF SYSTEMS: A 15-point review of system was performed and negative except for positives noted above. GENERAL: HEAD: NECK: No swelling or lumps. NOSE: No epistaxis or discharge. EYES: No diplopia or pain. RESPIRATORY: CARDIOVASCULAR: GASTROINTESTINAL: /TABLE FILLER: MUSCULOSKELETAL: No joint pain. NEUROPSYCHIATRIC SYSTEMS: No suicidal ideation. No ideation. SKIN: Denies any rash or ulcer. CONSTITUTIONAL: No fever or chills. PHYSICAL EXAMINATION: GENERAL: The patient is awake and alert. VITAL SIGNS: Afebrile, pulse 75, breathing 16, blood pressure 90/60. GENERAL APPEARANCE AND MENTAL STATUS: Fair. HEAD/NECK: Normocephalic. Atraumatic. EYES: EOMI. No deformity. EARS: Clear. No ulcers. NOSE: Intact. No lesions. MOUTH: Clear. No discharge. THROAT: Clear. No exudate. LUNGS: Clear. No crackles. CARDIAC: S1, S2. No rub. ABDOMEN: Benign. Bowel sounds positive. GENITALIA/RECTUM: Mcgraw absent. BACK/EXTREMITIES: Edema 0+. NEUROLOGICAL: Alert and motor intact. SKIN: LYMPHATICS: LABORATORY DATA: Creatinine is 2.7. ASSESSMENT AND PLAN: 1. Acute kidney injury with chronic kidney disease, most likely due to decreased effective arterial blood volume. No indication for dialysis. The patient has cardiorenal syndrome. We will follow renal imaging. 2. Hypertension, stable. 3. Anemia, stable. 4. Medication based on GFR appropriate. 5. No indication for dialysis. Job ID: [id number]
[2019-04-18] MEDS: Ipratropium Bromide 2.5 ml Neb NEB SCH ×6 (00:14→23:37)
[2019-04-18 05:18] LABS: Anion Gap 16 mmol/L (10-20); BUN (Urea Nitrogen) 40 mg/dL (8.4-25.7); Calc. Creatinine Clearance 22 mL/min (70-130); Calcium 8.8 mg/dL (7.8-10.44); Carbon Dioxide 19 mmol/L (23-31); Chloride 99 mmol/L (98-107); Estimated GFR-MDRD 21; Glucose 94 mg/dL (80-115); Potassium 4.7 mmol/L (3.5-5.1); Sodium 129 mmol/L (136-145)
[2019-04-18] MEDS: Mometasone/Formoterol 120 PUFF INHALER INH SCH ×2 (07:40→18:55)
[2019-04-18] MEDS: Gabapentin 300 MG CAP PO SCH ×2 (07:55→20:20)
[2019-04-18] MEDS: Furosemide 80 MG TAB PO SCH (07:56)
[2019-04-18] MEDS: Amiodarone 200 MG TAB PO SCH (07:56)
[2019-04-18] MEDS: Tamsulosin HCl 0.4 MG CAP PO SCH (07:56)
[2019-04-18] MEDS: Potassium Chloride 20 MEQ TAB PO SCH (07:56)
[2019-04-18] MEDS: Aspirin 325 mg Enteric Coated Tablet PO SCH (07:56)
[2019-04-18] MEDS: Ferrous Sulfate 325 MG TAB PO SCH (07:57)
[2019-04-18] MEDS: Midodrine HCl 5 MG TAB PO SCH ×3 (07:57→20:20)
--- NOTE | 2019-04-18 09:21 | PRG ---
DATE OF SERVICE: 04/18/2019 HISTORY OF PRESENT ILLNESS: The patient continues to sleep well with adventism of Ambien as continuing to tolerate once daily Entresto and Lasix. However, the patient failed trial off Mcgraw catheter for urinary obstruction, and Mcgraw catheter was replaced. Ultrasound of kidneys was performed and largely unremarkable with consultation by Nephrology. Urology consultation for likely prostate obstruction is pending, however for the time being, the patient appears to be stable from a urinary standpoint with Mcgraw catheter. The patient has no acute complaints overnight. Dressings to abdomen and thigh wound are intact. The patient denies any fevers or chills. With regard to the patient's COPD, p.r.n. oxygen and evening overall napping continues, however, the patient has slept without it last night, and he appears to be at his baseline regarding his COPD without any significant sputum production. Temperature of 97.8, pulse of 69, respiratory rate of 18, oxygen saturation 95% on room air, and blood pressure of 92/60. LABORATORY WORK: Sodium of 129; potassium of 4.7; BUN of 40, up from 30; creatinine 3.5, up from 2.7; and glucose of 94. PHYSICAL EXAMINATION: GENERAL: The patient is alert and oriented, in no acute distress. HEENT: Head is normocephalic and atraumatic. Extraocular movements are intact. Right pupil is opacified, followed by Dr. Serrano for this. Oral mucosa is moist. HEART: Regular rate and rhythm at time of exam. No murmurs are auscultated. LUNGS: Clear to auscultation bilaterally. No rubs or wheezes. ABDOMEN: Protuberant, soft, and nontender. Positive bowel sounds throughout. Left lower abdomen wound dressing intact, no induration, pallor, or erythema surrounding. Left thigh wound with dressing intact, no erythema, pallor, or induration surrounding. : Mcgraw catheter in place. EXTREMITIES: Lower extremities without cyanosis or edema. NEUROLOGIC: The patient is alert and oriented x3. No focal deficits. Speech is normal. ASSESSMENT AND PLAN: 1. Currently, the patient is transitioned from simple congestive heart failure exacerbation and cardiorenal syndrome with acute renal insufficiency on chronic, the patient's baseline prior this year was chronic kidney disease stage 3. The patient has completed 1 week of antibiotic course between IV vancomycin and Rocephin, transitioned to Keflex and Bactrim, have discontinued today with no signs of fever. Wound simply needs to be closed status post I and D on abscess from emergency department on admission. 2. Chronic obstructive pulmonary disease, the patient is on Dulera and Spiriva equivalent, I believe, the patient is taking his Anoro from home at bedside or continued p.r.n. breathing treatments and nightly oxygen p.r.n. 1 to 2 L. The patient remains largely hypotensive secondary to the cardiorenal syndrome and a severely reduced ejection fraction. The patient does have an automatic implantable cardioverter-defibrillator placement in the last year, which appears to be functioning normally. Cardiology's wishes were to get on b.i.d. Entresto, however, his blood pressure was not holding, currently tolerating once daily, did initiate low-dose midodrine to see if he would continue to tolerate, may consider increasing to twice daily Entresto if the patient's blood pressure will tolerate and Nephrology agrees. 3. Urinary obstruction, pending consultation from Urology. At this point in time, the patient appears to be stable on Mcgraw catheter, failed trial of discontinued Mcgraw catheter, required an in and out and then Mcgraw was replaced. The patient does not need any other causes for his cardiorenal syndrome to worsen. At this point in time from, yesterday, Dr. Esparza was not recommending need for hemodialysis, the patient verbalized understanding regarding trend of the patient's kidney function. He states he is unsure if he would want dialysis in the future, but would think about it. He was in this position in the hospitalization earlier this year in October to November, I believe. His answer at that point in time was he would have to try the dialysis before he would see if you would continue it. The patient is on tamsulosin for suspected benign prostatic hyperplasia with obstructive symptoms. 4. 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 The patient states he last got his narcotics that were found on UDS on admission from Dr. Serrano's office. I did not call Dr. Serrano's office to verify, however, he did report that the cannabis found on admission was from his brother. The patient's sister has been found to abuse other patients' narcotics, so for disposition planning would recommend limited controlled substances. For this point in time while inpatient using hydrocodone which the patient has done well with. He does have a listed allergy of codeine. However, the patient is taking this prior to wound care changes. DISPOSITION: We will still need to trend creatinine and see if Nephrology, Urology have any further recommendations for plan. If not, may be a candidate for short-term SNF placement to continue monitoring of renal function, continue wound care. This patient will need daily blood draws for some time going forward. We are coming upon the transition from [facility] to [facility], will check out with Dr. Rust later today after speaking with Dr. Edwards, medical billing representative for transition orders. Job ID: [id number]
--- NOTE | 2019-04-18 10:28 | PRG ---
DATE OF SERVICE: 04/18/2019 SUBJECTIVE: Patient was seen and examined at bedside and overnight events noted. Patient denies any shortness of breath or chest pain or palpitation. No history of nausea or vomiting or diarrhea or fever or chills or cramps. OBJECTIVE: GENERAL: This is a well-built male, in no apparent distress. VITAL SIGNS: Temperature 97.9. Heart rate 69. Respiratory rate 18. Blood pressure 92/60. HEENT: Atraumatic, normocephalic. Oral mucosa is moist NECK: Supple. CARDIOVASCULAR: S1, S2 heard. Rate and rhythm regular. RESPIRATORY: Clear to auscultation. GASTROINTESTINAL: Abdomen is soft. MUSCULOSKELETAL: No tenderness. No edema. DERMATOLOGIC: No skin rash. NEUROLOGIC: Alert and awake and oriented X3. No focal neurologic deficits. Moving all the extremities. PSYCHIATRIC: Mood and affect normal. LABORATORY DATA: Potassium 4.7, BUN is 40, and creatinine is 3.5. ASSESSMENT AND PLAN: 1. Acute kidney injury on chronic kidney disease stage 4. Creatinine getting worse. Allergies to medications. We will hold Entresto. Recommend holding Lasix for a few days. 2. Continue on midodrine. We will hold Entresto and also Bactrim for now. 3. Use Lasix p.r.n. 4. Cardiorenal syndrome as above. 5. Anemia. 6. Hypotension. 7. No acute indication for dialysis where creatinine is getting worse, so to hold Lasix with close monitoring. Use Lasix p.r.n. Hold Entresto and Bactrim. Job ID: [id number]
[2019-04-18 11:35] VITALS: BMI 23.0
[2019-04-19] MEDS: Zolpidem Tartrate 5 MG TAB PO SCH ×2 (02:34→20:16)
[2019-04-19] MEDS: Mometasone/Formoterol 120 PUFF INHALER INH SCH ×2 (06:55→17:51)
[2019-04-19] MEDS: Ipratropium Bromide 2.5 ml Neb NEB SCH ×3 (06:56→17:53)
[2019-04-19] MEDS: Potassium Chloride 20 MEQ TAB PO SCH (08:07)
[2019-04-19] MEDS: Midodrine HCl 5 MG TAB PO SCH ×3 (08:07→20:15)
[2019-04-19] MEDS: Tamsulosin HCl 0.4 MG CAP PO SCH (08:08)
[2019-04-19] MEDS: Amiodarone 200 MG TAB PO SCH (08:08)
[2019-04-19] MEDS: Aspirin 325 mg Enteric Coated Tablet PO SCH (08:08)
[2019-04-19] MEDS: Ferrous Sulfate 325 MG TAB PO SCH (08:08)
[2019-04-19 08:50] LABS: Anion Gap 18 mmol/L (10-20); BUN (Urea Nitrogen) 50 mg/dL (8.4-25.7); Calc. Creatinine Clearance 21 mL/min (70-130); Calcium 9.5 mg/dL (7.8-10.44); Carbon Dioxide 19 mmol/L (23-31); Chloride 102 mmol/L (98-107); Estimated GFR-MDRD 19; Glucose 110 mg/dL (80-115); Potassium 5.8 mmol/L (3.5-5.1); Sodium 133 mmol/L (136-145)
[2019-04-19] MEDS: HYDROcodone/Acetaminophen 10/325 mg Tablet PO PRN (15:03)
[2019-04-19] MEDS ORDERED: Sodium Chloride 0.9% 1,000 ML IV SCH (17:00)
--- NOTE | 2019-04-19 17:12 | PRG ---
DATE OF SERVICE: 04/19/2019 SUBJECTIVE: Patient was seen and examined at bedside and overnight events noted. Patient denies any shortness of breath or chest pain or palpitation. No history of nausea or vomiting or diarrhea or fever or chills or cramps. OBJECTIVE: GENERAL: This is a well-built male, in no apparent distress. VITAL SIGNS: Temperature 98.1. Heart rate 67. Respiratory rate 16. Blood pressure 104/72. HEENT: Atraumatic, normocephalic. Oral mucosa is moist NECK: Supple. CARDIOVASCULAR: S1, S2 heard. Rate and rhythm regular. RESPIRATORY: Clear to auscultation. GASTROINTESTINAL: Abdomen is soft. MUSCULOSKELETAL: No tenderness. No edema. DERMATOLOGIC: No skin rash. NEUROLOGIC: Alert and awake and oriented X3. No focal neurologic deficits. Moving all the extremities. PSYCHIATRIC: Mood and affect normal. LABORATORY DATA: Potassium is 5.8, BUN is 50, and creatinine is 3.83. ASSESSMENT AND PLAN: 1. Acute kidney injury on chronic kidney disease stage 4. Creatinine getting worse. 2. Edema. We will hold Lasix. 3. Cardiorenal syndrome. 4. Anemia. 5. Hypertension. 6. Hyperkalemia. We will medically treat it. Limit fluid intake. Avoid nephrotoxins and we will continue to hold nephrotoxins including Entresto and Lasix for now. Job ID: [id number]
--- NOTE | 2019-04-20 00:52 | CON ---
DATE OF CONSULTATION: 04/19/2019 CHIEF COMPLAINT: Shortness of breath. HISTORY OF PRESENT ILLNESS: Mr. Sandhu is a very pleasant 69-year-old gentleman with past medical history of cardiomyopathy and chronic kidney disease, who presents to [facility] on 04/09/2019, with shortness of breath. The patient was diagnosed of having congestive heart failure with acute exacerbation and was admitted to medical unit with telemetry for further evaluation. The patient's previous ejection fraction was reported at 15%. Cardiology consultation was requested, please see full consultation and progress notes for details. Cardiology recommending diuretic therapy. The patient with renal insufficiency, Nephrology consultation was requested, please see full consultation and progress notes for details. The patient was adequately diuresed, though he developed acute kidney injury on chronic kidney disease and Nephrology recommending cessation of diuretic therapy and nephrotoxins. Internal Medicine consultation was requested on 04/19/2019, as the patient was transferred to hospital admitting service. I found the patient on the medical unit. He is lying in bed, in no apparent distress. The patient is breathing well on room air. The patient has a Mcgraw catheter in place, and he states that it is causing him discomfort and he would like it removed. I informed the patient that Mcgraw catheter is in place as he has been aggressively diuresed and urine that is unable to be voided can backup on his kidneys and worsen renal function and his renal function is already severely impaired. The patient's family at bedside, many questions were asked, all answered in detail. PAST MEDICAL HISTORY: Congestive heart failure, chronic kidney disease, hypertension, atrial fibrillation, BPH, frequent episodes of obstructive uropathy, insomnia, and osteoarthritis. HOME MEDICATIONS: 1. Sacubitril/valsartan one tablet p.o. b.i.d. 2. Aspirin 325 mg one tablet p.o. daily. 3. Amiodarone 100 mg one tablet p.o. daily. 4. Protonix 40 mg one tablet p.o. daily. 5. Ferrous sulfate 325 mg one tablet p.o. daily. 6. Gabapentin 600 mg one tablet p.o. b.i.d. ALLERGIES: CODEINE, DULOXETINE, MIRTAZAPINE, AND NIACIN. REVIEW OF SYSTEMS: A 10-point review of systems was performed and negative aside from what was mentioned in history of present illness. PHYSICAL EXAMINATION: VITAL SIGNS: Blood pressure 104/72, O2 saturation 95% on room air, respirations 16, pulse was 67, and temperature 98.1 degrees. GENERAL APPEARANCE: The patient is well developed, well nourished, alert, and cooperative. The patient appears in no acute distress. HEENT: Head is normocephalic and atraumatic. Pupils are equally round and reactive to light and accommodation. External auditory canals and tympanic membranes are clear. Hearing is grossly intact. Oral cavities/tonsils are without inflammation or exudates. CARDIAC: S1 and S2 present. No appreciated murmurs. No rubs. No gallops. LUNGS: Clear to auscultation bilaterally. No wheezes, rales, or rhonchi. ABDOMEN: Soft, nontender, nondistended without focal guarding or rigidity. No appreciated masses. MUSCULOSKELETAL: Adequate alignment of spine. Range of motion intact to spine and extremities grossly. No appreciated erythema or tenderness of the joints. EXTREMITIES: No significant peripheral edema. Peripheral pulses intact. NEUROLOGIC: Cranial nerves 2 through 12 are grossly intact. Strength and sensation are symmetric and intact bilaterally. SKIN: Skin is normal in color, texture, and turgor without lesions or rashes. PSYCHIATRIC: Mental examination revealed the patient is oriented to person, place, and time. The patient is able to demonstrate good judgment and reason. No hallucinations, abnormal affect, or abnormal behaviors were observed. LABORATORY DATA: WBC 7.1, RBC 4.4, hemoglobin 14.0, hematocrit 41.6, and platelets of 180. Sodium 133, potassium 5.8, chloride 102, carbon dioxide 19, anion gap of 18, blood urea nitrogen 50, creatinine 3.8, estimated GFR 19, glucose 110, and calcium 9.5. Urinalysis is negative for infection or blood. Toxicology positive for opiates and cannabinoids. RADIOGRAPHIC IMAGING: Renal ultrasound: Impression; mild cortical thinning in both kidneys. No obstruction or mass - please see full report for details. ASSESSMENT/PLAN: 1. Acute kidney injury on chronic kidney disease. Nephrology consultation, recommendations appreciated. Please see full consultation and progress notes from Nephrology. The patient with aggressive diuresis for heart failure exacerbation, now with acute kidney injury. Diuretic therapy has been suspended per Nephrology. Nephrotoxic medications have been stopped including Bactrim and gabapentin, which have been shown to cause problems in renal insufficiency. The patient on fluid restrictions. We will continue to monitor and if does not significantly improve, the patient may require hemodialysis. There are no statin indications for dialysis at this time. 2. Congestive heart failure with acute exacerbation. The patient's ejection fraction is 15%, at baseline. Cardiology consultation requested, please see full consultation and progress notes for details. Cardiology recommending no acute interventions further at this time. The patient has been effectively diuresed and is now breathing well on room air. Once renal function is normalized, the patient may be evaluated for discharge home. 3. Obstructive uropathy. Mcgraw catheter in place. The patient on BPH medications already. Mcgraw catheter relieving obstruction, and there are no obvious hydronephrosis or masses seen on renal ultrasound. 4. Hypotension, on chronic midodrine. 5. Gastroesophageal reflux disease, on Protonix. 6. Chronic iron-deficiency anemia, on iron replacement therapy. 7. Neuropathy. 8. Osteoarthritis. 9. Insomnia. 10. BPH. Greater than 70 minutes spent coordinating care and admitting process. Job ID: [id number]
[2019-04-20] MEDS: Ipratropium Bromide 2.5 ml Neb NEB SCH ×2 (01:11→06:39)
[2019-04-20] MEDS: Mometasone/Formoterol 120 PUFF INHALER INH SCH (06:36)
[2019-04-20 07:44] LABS: Anion Gap 15 mmol/L (10-20); BUN (Urea Nitrogen) 39 mg/dL (8.4-25.7); Calc. Creatinine Clearance 30 mL/min (70-130); Calcium 9.1 mg/dL (7.8-10.44); Carbon Dioxide 22 mmol/L (23-31); Chloride 104 mmol/L (98-107); Estimated GFR-MDRD 30; Glucose 94 mg/dL (80-115); Sodium 136 mmol/L (136-145)
[2019-04-20] MEDS: Ferrous Sulfate 325 MG TAB PO SCH (09:02)
[2019-04-20] MEDS: Tamsulosin HCl 0.4 MG CAP PO SCH (09:02)
[2019-04-20] MEDS: Midodrine HCl 5 MG TAB PO SCH (09:03)
[2019-04-20] MEDS: Aspirin 325 mg Enteric Coated Tablet PO SCH (09:05)
[2019-04-20] MEDS: Amiodarone 200 MG TAB PO SCH (09:05)
--- NOTE | 2019-04-20 10:55 | PQF ---
DATE: 04-19-19 ATTN: DR. KEILY RODRIGUEZ Please exercise your independent, professional judgment in responding to the clarification form. Clinical indicators are provided on the bottom of this form for your review Please check appropriate box(s): [ ] Hyponatremia please specify etiology, if known [ x ] Insignificant Lab Values [ ] Other diagnosis [ ] Unable to determine In addition, please specify: Present on Admission (POA): [ ] Yes [ ] No [ x ] Unable to determine CLINICAL INDICATORS - SIGNS / SYMPTOMS / LABS: SODIUM: 04-11-19: 135 04-12-19: 134 04-14-19: 134 04-16-19: 133 04-16-19: 133 04-17-19: 131 04-18-19: 129 04-19-19: 133 RISK FACTORS: CONSULT NOTE DR. WILKS 04-18-19: FANG WITH CKD TREATMENTS: MONITORING LABS 04-09-19 TO 04-19-19 ER NOTES 04-09-19: NS IVF (This form is maintained as a part of the permanent medical record) 2014 [employer] All Rights Reserved [email or web address] Office: [phone] [employer]
--- NOTE | 2019-04-20 11:15 | PRG ---
DATE OF SERVICE: 04/20/2019 SUBJECTIVE: Patient was seen and examined at bedside and overnight events noted. Patient denies any shortness of breath or chest pain or palpitation. No history of nausea or vomiting or diarrhea or fever or chills or cramps. OBJECTIVE: GENERAL: This is a well-built male, in no apparent distress. VITAL SIGNS: Temperature 97.8. Heart rate 76. Respiratory rate 20. Blood pressure 95/53. HEENT: Atraumatic, normocephalic. Oral mucosa is moist NECK: Supple. CARDIOVASCULAR: S1, S2 heard. Rate and rhythm regular. RESPIRATORY: Clear to auscultation. GASTROINTESTINAL: Abdomen is soft. MUSCULOSKELETAL: No tenderness. No edema. DERMATOLOGIC: No skin rash. NEUROLOGIC: Alert and awake and oriented X3. No focal neurologic deficits. Moving all the extremities. PSYCHIATRIC: Mood and affect normal. LABORATORY DATA: Potassium 5.0, BUN is 39, and creatinine is 2.6. ASSESSMENT AND PLAN: 1. Acute kidney injury, much better. 2. Chronic kidney disease, stage 3. 3. Edema. 4. Cardiorenal syndrome. 5. Anemia. 6. Hypertension. 7. Hyperkalemia, better. Limit potassium intake. Potassium stopped. Renal function is better. Avoid nephrotoxins. We will follow. Job ID: [id number]
[2019-04-20 13:11] VITALS: BP 122/79; TEMP 98.1
--- NOTE | 2019-04-21 02:08 | DIS ---
DATE OF ADMISSION: 04/09/2019 DATE OF DISCHARGE: 04/20/2019 REASON FOR HOSPITALIZATION: Shortness of breath. SIGNIFICANT FINDINGS: The patient was found to be in acute on chronic congestive heart failure. The patient also developed acute kidney injury. PROCEDURES PERFORMED/TREATMENTS RENDERED: The patient received appropriate medical therapy by Internal Medicine, Cardiology, and Nephrology - please see full consultation and progress notes for full details. CONDITION ON DISCHARGE: Stable. SPECIFIC INSTRUCTIONS FOR THE PATIENT/FAMILY: 1. The patient is recommended to take all medications as directed, to be re-evaluated by primary care physician in the next 5 to 7 days. 2. The patient recommended to monitor his water intake and all fluids and consume no more than 1.5 L in a day. 3. The patient is recommended to take control of his congestive heart failure to avoid future exacerbations. 4. The patient recommended to return to acute care hospital immediately if signs or symptoms return, worsen, or any other new symptoms occur. HOME MEDICATIONS: 1. Aspirin 325 mg one tablet p.o. daily. 2. Amiodarone 100 mg one tablet p.o. daily. 3. Protonix 40 mg one tablet p.o. daily. 4. Ferrous sulfate 325 mg one tablet p.o. daily. 5. Tamsulosin 0.45 mg one tablet p.o. daily. 6. Entresto 49/51 one tablet p.o. b.i.d. 7. Dulera two puffs p.o. b.i.d. 8. Midodrine 2.5 mg one tablet p.o. t.i.d. 9. Acetaminophen 1000 mg one tablet p.o. q.6 hours p.r.n. pain. 10. Lasix 20 mg one tablet p.o. daily. HOSPITAL COURSE: Mr. Sandhu is a pleasant 69-year-old gentleman who presented to [facility] on 04/10/2019, please see full history and physical and consultation notes from specialists for full details. The patient was diagnosed with acute congestive heart failure with unknown ejection fraction of 15%. The patient was evaluated by Cardiology and placed on appropriate diuretic and cardiomyopathy regimen. With maximum medical therapy, the patient's shortness of breath did improve and he was weaned off all supplemental oxygen. The patient receiving diuretic therapy for several days. Did develop acute kidney injury and a Nephrology consultation was requested, please see full consultation and progress notes for details. Cardiology and Nephrology in agreement that the patient was adequately diuresed and diuretic therapy was suspended. The patient was recommended safe for discharge by all specialists on 04/20/2019. The patient does have a history of benign prostate hypertrophy and has had episodes of urinary obstruction in the past. For this, the patient did require a Mcgraw catheter and this allowed adequate diuresis of the patient. Mcgraw catheter was removed on 04/20/2019 per Nephrology and the patient had successful voiding challenge. He was able to void without difficulties and the urinary bladder was confirmed to be draining on postvoid residuals. The patient was recommended safe for discharge with close followup in the outpatient setting. The patient recommended to follow up with primary care physician in the next 5 to 7 days. The patient recommended to follow up with Cardiology in the next 1 to 2 weeks. The patient recommended to follow up with Nephrology in the next 1 to 2 weeks. The patient recommended to return to acute care hospital immediately if signs or symptoms return, worsen, or any other new symptoms occur. TIME SPENT: Greater than 37 minutes spent coordinating care and discharge process for this patient. Job ID: [id number]
== END 2019-04-20 13:31 | disposition home health service (06) | DRG 291 ==
LOC: ERS 12:14 → 2NO 15:00 → T4-A 04-15 18:50
PROVIDERS: ADMIT Family Medicine; ATTEND Family Medicine
DX: I13.0 Hypertensive heart and chronic kidney disease with heart failure and stage 1 through stage 4 chronic kidney disease, or unspecified chronic kidney disease (principal); I50.23 Acute on chronic systolic (congestive) heart failure; L03.311 Cellulitis of abdominal wall; L03.116 Cellulitis of left lower limb; L02.416 Cutaneous abscess of left lower limb; N17.9 Acute kidney failure, unspecified; N18.4 Chronic kidney disease, stage 4 (severe); N13.8 Other obstructive and reflux uropathy; L02.211 Cutaneous abscess of abdominal wall; I42.8 Other cardiomyopathies; E78.5 Hyperlipidemia, unspecified; E78.00 Pure hypercholesterolemia, unspecified; J44.9 Chronic obstructive pulmonary disease, unspecified; F41.9 Anxiety disorder, unspecified; K21.9 Gastro-esophageal reflux disease without esophagitis; M19.90 Unspecified osteoarthritis, unspecified site; D63.1 Anemia in chronic kidney disease; E11.22 Type 2 diabetes mellitus with diabetic chronic kidney disease; E11.40 Type 2 diabetes mellitus with diabetic neuropathy, unspecified; E87.6 Hypokalemia; I95.9 Hypotension, unspecified; F32.9 Major depressive disorder, single episode, unspecified; H40.9 Unspecified glaucoma; G47.00 Insomnia, unspecified; N40.1 Benign prostatic hyperplasia with lower urinary tract symptoms; E87.5 Hyperkalemia; Z88.8 Allergy status to other drugs, medicaments and biological substances; Z95.1 Presence of aortocoronary bypass graft; Z95.810 Presence of automatic (implantable) cardiac defibrillator; Z88.5 Allergy status to narcotic agent; Z88.1 Allergy status to other antibiotic agents; Z87.891 Personal history of nicotine dependence; Z79.82 Long term (current) use of aspirin; Z79.899 Other long term (current) drug therapy
CPT/HCPCS: 10061; 36415; 71045; 76770; 80048; 80053; 80202; 80306; 81001; 81003; 82550; 82553; 83605; 83690; 83735; 83880; 84484; 85025; 86140; 87040; 93005; 93290; 93798; 94640; 94760; 96365; 96375; 99214; G0463; J0696; J1940; J2001; J3370; J3475; J3490; J7050; J7620

== ENCOUNTER 2019-04-27 13:28 | Inpatient (IN) | payer MEDICARE, MEDICAID ==
[2019-04-27 14:31] LABS: #Lymphocytes 1.2 thou/uL (1.20-3.40); #Monocytes 0.6 thou/uL (0.11-0.59); #Neutrophils 3.2 thou/uL (1.40-6.50); %Basophils 0.5 % (0.0-1.0); %Eosinophils 0.8 % (0.0-10.0); %Lymphocytes 23.3 % (21.0-51.0); %Monocytes 11.6 % (0.0-10.0); %Neutrophils 63.8 % (42.0-75.0); Hemoglobin 13.4 g/dL (14.0-18.0); Mean Corpuscular HGB CONC 33.7 g/dL (32.0-36.0); Mean Corpuscular Hemoglobin 31.8 pg (27.0-31.0); Mean Corpuscular Volume 94.4 fL (78.0-98.0); Mean Platelet Volume 8.4 fL (7.4-10.4); Platelet Count 221 thou/uL (130-400); RBC Distribution Width 12.3 % (11.5-14.5); Red Blood Cell (RBC) Count 4.21 mill/uL (4.70-6.10)
[2019-04-27 14:53] LABS: ALT (SGPT) 18 U/L (8-55); AST (SGOT) 22 U/L (5-34); Alkaline Phosphatase 69 U/L (40-110); Anion Gap 14 mmol/L (10-20); BUN (Urea Nitrogen) 30 mg/dL (8.4-25.7); Bilirubin, Total 0.6 mg/dL (0.2-1.2); Calc. Creatinine Clearance 0 mL/min (70-130); Calcium 8.9 mg/dL (7.8-10.44); Carbon Dioxide 19 mmol/L (23-31); Chloride 106 mmol/L (98-107); Estimated GFR-MDRD 56; Globulin 3.6 g/dL (2.4-3.5); Glucose 87 mg/dL (80-115); Protein, Total 7.6 g/dL (5.8-8.1); Sodium 135 mmol/L (136-145)
[2019-04-27 15:15] LABS: CKMB 1.5 ng/mL (0-6.6)
[2019-04-27 15:16] LABS: Bilirubin Negative (Negative); Blood, Urine Negative (Negative); Clarity Clear (Clear); Glucose, Urine (Dipstick) Normal (Negative); Leukocyte Negative Leu/uL (Negative); Nitrite Negative (Negative); Protein, Urine (Dipstick) Negative (Neg-Trace); Urobilinogen Normal mg/dL (Less than 2)
--- NOTE | 2019-04-27 15:47 | RAD ---
PORTABLE CHEST: 04/27/19 HISTORY: Syncope. COMPARISON: 04/09/19 study. Heart size appears slightly enlarged with a pacemaker present. Some linear scarring in the lung bases . No focal infiltrates. IMPRESSION: Linear scarring in both lung bases with some mild cardiomegaly. No acute changes. Stable chest. POS: [facility]
[2019-04-27] MEDS ORDERED: Senokot S 8.6-50 MG TAB PO PRN (17:07)
[2019-04-27] MEDS ORDERED: Acetaminophen 325 MG TAB PO PRN (17:07)
[2019-04-27 17:51] LABS: Troponin I 0.012 ng/mL (< 0.028)
[2019-04-27 18:17] VITALS: BMI 23.8
[2019-04-27] MEDS: Famotidine 20 MG TAB PO SCH (20:53)
[2019-04-27 20:56] LABS: Troponin I 0.037 ng/mL (< 0.028)
--- NOTE | 2019-04-28 03:41 | HP ---
PRIMARY CARE PHYSICIAN: Dr. Rae. CHIEF COMPLAINT: Syncope. HISTORY OF PRESENT ILLNESS: Mr. Sandhu is a very pleasant 69-year-old male, who reported to the emergency room via EMS after he had a syncopal episode in the hallway of the PCP's office. The patient reports that his medications were filled wrong at the pharmacy and he went to his PCP to get the issue corrected. The patient reports that he took the wrong medications on Thursday. The patient reports that he was recently discharged from this facility. Record showed that he was admitted on 04/09/2019 and discharged on 04/20/2019. He was here for acute on chronic congestive heart failure and acute kidney injury. His last echocardiogram done in October of 2018, showed an EF of 15% to 20%; diastolic dysfunction, has a pacemaker AICD, left atrium moderately dilated, mild mitral regurgitation, mild aortic regurgitation, mild tricuspid regurgitation. He was discharged on 04/20 with following medications; 1. Aspirin 325 mg p.o. once a day. 2. Amiodarone 100 mg p.o. once a day. 3. Protonix 40 mg p.o. once a day. 4. Ferrous sulfate 325 p.o. daily. 5. Flomax 0.4 p.o. daily. 6. Entresto 49/51 one tab p.o. b.i.d. 7. Dulera two puffs p.o. b.i.d. 8. Midodrine 2.5 mg p.o. t.i.d. 9. Tylenol 1000 mg q.6 hours as needed. 10. Lasix 20 mg p.o. tablet daily. The patient went to his PCP, Dr. Rae on discharge. Dr. Rae has the following medications on his home med list from the office that he brought with him today. 1. Ondansetron 4 mg p.o. once a day p.r.n. nausea. 2. Amiodarone 100 mg p.o. once a day. 3. Lasix 20 mg p.o. tablet daily once a day. 4. Midodrine 2.5 mg one tablet three times a day. 5. Flomax 0.4 mg once a day. 6. Aspirin 325 mg p.o. once a day. 7. Protonix 40 mg p.o. once a day. 8. Tylenol Extra Strength 500 mg q.6 hours as needed. 9. Breo Ellipta 200/25 one puff once a day. 10. Incruse Ellipta 62.5 one inhalation once a day. 11. ProAir HFA two puffs q.4 hours as needed. 12. DuoNeb inhalation q.6 hours as needed. There is no mention of restarting his Entresto. ALLERGIES: CODEINE AND NIACIN. REVIEW OF SYSTEMS: The patient reports syncope. Denies any other symptoms. All systems reviewed and are negative unless mentioned in the HPI. PHYSICAL EXAMINATION: VITAL SIGNS: Blood pressure 104/76, pulse is 69, respirations are 14, temperature is 98.4, and pO2 sats are 100% on room air. CONSTITUTIONAL: The patient is alert and oriented to person, place, and time. There is no apparent distress. HEENT: Head is atraumatic and normocephalic. Eyes, pupils are equally round and reactive to light. Extraocular muscles are intact. ENT; mouth exam is normal. Mucous membranes are moist. NECK: Normal range of motion. Trachea is midline. RESPIRATORY: Chest breath sounds are clear. Chest expansion is equal. CARDIOVASCULAR: Regular rate and rhythm. Heart sounds are normal. ABDOMEN: Nontender. Bowel sounds are heard. BACK: Normal range of motion. No CVA tenderness. EXTREMITIES: Upper extremities; normal inspection, normal range of motion. Radial pulses are normal. Lower extremities; normal inspection, normal range of motion. Pedal pulses are equal. No edema is noted. NEUROLOGIC: The patient is oriented to person, place, and time. Speech is normal. SKIN: Warm, dry, and normal in color. LABORATORY DATA: EKG in the emergency room shows normal sinus rhythm, beats per minute 73 with short MS and occasional PVCs, conduction with nonspecific intraventricular conduction delay, axis is right. ST segments and T-waves are normal. Chest x-ray shows linear scarring in both lung bases with some mild cardiomegaly and no acute changes. Urine was negative. Troponin was indeterminate at 0.040. Sodium is little low at 135, carbon dioxide 19, BUN 30, creatinine 1.52. Creatinine actually is improved from the last time, it was checked yesterday on the 8th at 1.72 and on 04/20/2019, it was 2.61. PLAN/ASSESSMENT: 1. Syncope. In the context, I think there were some issues reconciling medications, what he was discharged on 04/20 is not what he is currently supposed to be taking per Dr. Rae's office. The patient does have an EF of known 15% to 20%. We have asked Cardiology to consult to help with straighten out the home medications if he is supposed to be on something different than what is listed currently by his PCP's office. Last echo was done in October. We have asked to have his AICD interrogated. We will repeat lab values in the morning. We will check orthostatic vitals. 2. History of some anemia. We will continue the iron tablets. 3. History of orthostatic hypotension. Restart the midodrine. 4. Deep venous thrombosis and gastrointestinal prophylaxis have been started. 5. Case was discussed with Dr. Bucio, who agrees with plan. Job ID: [id number]
[2019-04-28 04:32] LABS: #Eosinphils 0.1 thou/uL (0.0-0.7); #Lymphocytes 1.1 thou/uL (1.20-3.40); #Monocytes 0.5 thou/uL (0.11-0.59); #Neutrophils 2.2 thou/uL (1.40-6.50); %Basophils 0.5 % (0.0-1.0); %Eosinophils 2.1 % (0.0-10.0); %Lymphocytes 28.6 % (21.0-51.0); %Monocytes 12.9 % (0.0-10.0); %Neutrophils 55.9 % (42.0-75.0); Hemoglobin 12.7 g/dL (14.0-18.0); Mean Corpuscular HGB CONC 33.6 g/dL (32.0-36.0); Mean Corpuscular Hemoglobin 31.7 pg (27.0-31.0); Mean Corpuscular Volume 94.4 fL (78.0-98.0); Mean Platelet Volume 8.4 fL (7.4-10.4); Platelet Count 209 thou/uL (130-400); RBC Distribution Width 12.2 % (11.5-14.5)
[2019-04-28 04:54] LABS: Anion Gap 10 mmol/L (10-20); BUN (Urea Nitrogen) 23 mg/dL (8.4-25.7); Calc. Creatinine Clearance 65 mL/min (70-130); Calcium 8.5 mg/dL (7.8-10.44); Carbon Dioxide 24 mmol/L (23-31); Chloride 105 mmol/L (98-107); Estimated GFR-MDRD 68; Glucose 89 mg/dL (80-115); Potassium 3.6 mmol/L (3.5-5.1); Sodium 135 mmol/L (136-145)
[2019-04-28] MEDS ORDERED: FLU VACC TS2019-20(65YR UP)/PF 180 MCG/0.5 ML SYRINGE IM ONE (09:00)
[2019-04-28] MEDS: Famotidine 20 MG TAB PO SCH ×2 (10:00→19:50)
[2019-04-28] MEDS ORDERED: Zolpidem Tartrate 5 MG TAB PO PRN (12:11)
[2019-04-28] MEDS ORDERED: Tamsulosin HCl 0.4 MG CAP PO SCH (13:00)
[2019-04-28] MEDS ORDERED: Aspirin 325 MG TAB PO SCH (13:00)
[2019-04-28] MEDS ORDERED: Furosemide 20 MG TAB PO SCH (13:00)
[2019-04-28] MEDS ORDERED: Amiodarone 200 MG TAB PO SCH (13:00)
[2019-04-28] MEDS ORDERED: Sacubitril 49 MG/Valsartan 51 MG TABLET PO SCH (13:00)
[2019-04-28] MEDS ORDERED: Ferrous Sulfate 325 MG TAB PO SCH (13:00)
[2019-04-28] MEDS: Midodrine HCl 5 MG TAB PO SCH ×2 (16:05→21:01)
[2019-04-28] MEDS ORDERED: Calcium Carbonate 500 MG ChewTAB PO PRN (18:22)
--- NOTE | 2019-04-28 18:38 | PRG ---
DATE OF SERVICE: 04/28/2019 SUBJECTIVE: Mr. Sandhu with an episode of orthostatic hypotension and syncope yesterday. There are no dysrhythmias on the monitor. There may have been some confusion about how he is taking his medicines. He has a lot of trouble keeping him straight it appears. OBJECTIVE: VITAL SIGNS: Blood pressure 113/71 and pulse 74. LUNGS: Clear. CARDIAC: Normal S1 and normal S2. ABDOMEN: Soft and nontender. EXTREMITIES: No edema. ASSESSMENT: 1. Advanced dilated cardiomyopathy. 2. Orthostatic hypotension. PLAN: 1. I would stop furosemide. 2. If the medicines can be unchanged, okay to me to be released home tomorrow. Job ID: [id number]
[2019-04-28] MEDS: Mag-Al 1200 mg/1200 mg/30 ML UDCUP PO PRN (18:44)
--- NOTE | 2019-04-28 18:58 | PRG ---
DATE OF SERVICE: 04/28/2019 SUBJECTIVE: A 69-year-old male with recent hospitalization for congestive heart failure, presented to the hospital after a syncopal episode in the hallway of the PCP's office. Please note that the patient was not taking his medications appropriately. He denies any chest discomfort, shortness of breath, or palpitations at this time. No fever or chills reported. He denies any hematemesis or melena. REVIEW OF SYSTEMS: As discussed above. Telemetry monitoring by my review showed paced rhythm. OBJECTIVE: VITAL SIGNS: Temperature 98.1, pulse of 65, respirations of 14, blood pressure of 117/69. Orthostatic vitals were negative. O2 saturation 99% on room air. GENERAL: A 69-year-old male, in no apparent distress. LUNGS: Clear to auscultation bilaterally. No wheezing, rales, or rhonchi. HEART: S1 and S2 present. Regular rate and rhythm. ABDOMEN: Soft, nontender. Bowel sounds present. EXTREMITIES: No calf tenderness. NEUROLOGIC: Grossly nonfocal. LABORATORY FINDINGS: WBC 4.0 with hemoglobin 12.7, hematocrit 37.7, platelet 209. Creatinine on admission 1.52, repeat was 1.27. Sodium 135. Troponin 0.040 with normal CK-MB. CURRENT MEDICATIONS: Reviewed. IMPRESSION: 1. Syncopal episode secondary to hypotension. Please note, the patient was not taking his medication appropriately. 2. Chronic systolic and diastolic heart failure, ejection fraction 15% to 20% range, status post AICD. 3. Chronic hypotension, on midodrine. 4. Acute kidney injury on chronic kidney disease stage 2. 5. Hyponatremia. 6. Type 2 myocardial infarction. 7. Chronic anemia. 8. Benign prostatic hypertrophy. 9. Paroxysmal atrial fibrillation, on amiodarone. 10. Gastroesophageal reflux disease. 11. Chronic insomnia. PLAN: We will resume his home medications including amiodarone, aspirin, ferrous sulfate, midodrine, Protonix, Entresto, and Flomax. Cardiology has been consulted. We will recheck labs in a.m. We will consult cardiac rehab. Orthostatic vitals have been negative. Plan was discussed with the patient and the family at the bedside, they stated understanding. Job ID: [id number]
[2019-04-28] MEDS: Donnatal Elixir 16.2 MG/5 ML UDCUP PO PRN (21:01)
--- NOTE | 2019-04-28 21:02 | CT ---
CT Abdomen Pelvis W Con History: Severe abdominal pain Comparison: CT abdomen and pelvis October 2017 Findings: Mild scarring lung bases. No pericardial effusion. Left ventricular dilatation. Liver is unremarkable as well as the gallbladder and spleen. Mild pancreatic atrophy. Prostate is enlarged. No hydronephrosis. Celiac trunk and superior mesenteric arteries are patent. Mi ld tortuosity of the aorta following the curvature of the spine with moderate dextro scoliosis thoracolumbar spine. Avascular necrosis both femoral heads without articular surface depression. There is unformed stool within the ascending colon. The appendix is visualized and is normal. No free intraperitoneal gas or fluid. No retroperitoneal periaortic adenopathy. There is a focal high -grade 50-60% stenosis proximal right femoral artery for a length of 3 mm. Impression: No acute inflammatory process within the abdomen or pelvis.
[2019-04-28] MEDS: Sacubitril 49 MG/Valsartan 51 MG TABLET PO SCH (21:49)
--- NOTE | 2019-04-28 23:34 | PDOC.EVN ---
Event Note - Event Note Event Note: Patient seen due to complaints of severe abdominal pain. he states had started earlier and progressed through the night. His abdominal exam was benign, good bowel sounds, soft, diffusely tender. CT scan of the abdomen was done and is negative. Will defer further work-up to the day team.
[2019-04-29] MEDS: Donnatal Elixir 16.2 MG/5 ML UDCUP PO PRN (00:55)
[2019-04-29] MEDS ORDERED: Ketorolac Tromethamine 30 MG/ML VIAL ONE (01:22)
[2019-04-29 05:51] LABS: ALT (SGPT) 16 U/L (8-55); AST (SGOT) 18 U/L (5-34); Albumin 3.6 g/dL (3.4-4.8); Alkaline Phosphatase 65 U/L (40-110); Anion Gap 11 mmol/L (10-20); BUN (Urea Nitrogen) 19 mg/dL (8.4-25.7); Bilirubin, Total 0.8 mg/dL (0.2-1.2); Calc. Creatinine Clearance 60 mL/min (70-130); Calcium 8.5 mg/dL (7.8-10.44); Carbon Dioxide 23 mmol/L (23-31); Chloride 103 mmol/L (98-107); Estimated GFR-MDRD 63; Globulin 3.2 g/dL (2.4-3.5); Glucose 102 mg/dL (80-115); Potassium 3.6 mmol/L (3.5-5.1); Protein, Total 6.8 g/dL (5.8-8.1); Sodium 133 mmol/L (136-145)
[2019-04-29] MEDS ORDERED: Tamsulosin HCl 0.4 MG CAP PO SCH (09:00)
[2019-04-29] MEDS ORDERED: Ferrous Sulfate 325 MG TAB PO SCH (09:00)
[2019-04-29] MEDS ORDERED: Furosemide 20 MG TAB PO SCH (09:00)
[2019-04-29] MEDS: Aspirin 325 MG TAB PO SCH ×2 (09:42→11:28)
[2019-04-29] MEDS: Famotidine 20 MG TAB PO SCH ×2 (09:43→20:48)
[2019-04-29] MEDS: Amiodarone 200 MG TAB PO SCH (09:43)
[2019-04-29] MEDS: Midodrine HCl 5 MG TAB PO SCH ×3 (09:44→20:47)
[2019-04-29] MEDS: Sacubitril 49 MG/Valsartan 51 MG TABLET PO SCH (09:44)
[2019-04-29] MEDS ORDERED: Dicyclomine 10 MG CAP PO PRN (10:08)
[2019-04-29] MEDS ORDERED: Simethicone Chewable 80 MG TAB PO PRN (10:08)
[2019-04-29 11:00] LABS: Lactic Acid 1.1 mmol/L (0.5-2.2)
[2019-04-29] MEDS: Morphine 2 MG/ML SYRINGE SLOW IVP PRN ×2 (14:09→22:39)
--- NOTE | 2019-04-29 15:20 | PRG ---
DATE OF SERVICE: 04/29/2019 Mr. Humberto Sandhu was hypotensive, just sitting today, 87/60, dropped to 80/60 standing. Recommended decreasing Entresto dose to 24/ twice a day. He cannot tolerate beta-blockers due to hypotension. He is on midodrine also to help the blood pressure and he is asked to be on tamsulosin to help empty his bladder. Long-term prognosis is guarded to poor. The patient is released home at this point. Diagnosis of orthostatic hypotension secondary to severe cardiomyopathy and medical therapy. Job ID: [id number]
[2019-04-29] MEDS: Tamsulosin HCl 0.4 MG CAP PO SCH (20:48)
--- NOTE | 2019-04-29 21:51 | PDOC.HOSPP ---
- Subjective Encounter Date: 04/29/19 Encounter Time: 08:00 Subjective: Patient seen and examined for Syncope. Overnight events noted. RUQ abd pain improving. - Objective Vital Signs & Weight: Vital Signs (12 hours) Temp Pulse Pulse Pulse Resp BP BP 04/29/19 20:48 04/29/19 19:36 98.4 F 56 L 14 04/29/19 15:55 97.1 F L 68 16 04/29/19 12:00 98.5 F 69 16 04/29/19 10:38 66 66 98/66 99/69 BP Pulse Ox Pulse Ox 04/29/19 20:48 97 04/29/19 19:36 103/67 97 04/29/19 15:55 106/74 99 04/29/19 12:00 106/77 97 04/29/19 10:38 97 Weight Weight 180 lb 14.4 oz I&O: 04/28/19 04/29/19 04/30/19 06:59 06:59 06:59 Intake Total 240 1310 720 Output Total 300 1250 550 Balance -60 60 170 Result Diagrams: 04/28/19 04:26 04/29/19 05:09 Radiology Reviewed by me: Yes (CT abd - neg) EKG Reviewed by me: Yes (Tele paced) Hospitalist ROS - Review of Systems Respiratory: denies: cough, dry, shortness of breath, hemoptysis, SOB with excertion, pleuritic pain, sputum, wheezing, other Cardiovascular: denies: chest pain, palpitations, orthopnea, paroxysmal noc. dyspnea, edema, light headedness, other Gastrointestinal: reports: abdominal pain. denies: nausea, vomiting, diarrhea, constipation, melena, hematochezia - Medication Medications: Active Medications Generic Name Dose Route Start Last Admin Trade Name Freq PRN Reason Stop Dose Admin Acetaminophen 650 mg 04/27/19 17:07 04/28/19 18:13 Tylenol PO 650 mg Q4H PRN Administration Headache/Fever/Mild Pain (1-3) Al Hydroxide/Mg Hydroxide 30 ml 04/28/19 18:22 04/28/19 18:44 Maalox PO 30 ml Q6H PRN Administration Heartburn or Indigestion Amiodarone HCl 100 mg 04/29/19 09:00 04/29/19 09:43 Cordarone PO 100 mg DAILY MOOK Administration Aspirin 325 mg 04/29/19 09:00 04/29/19 11:28 Aspirin PO 325 mg DAILY MOOK Administration Calcium Carbonate 1,000 mg 04/28/19 18:22 04/28/19 18:45 Tums PO 1,000 mg Q4H PRN Administration Heartburn or Indigestion Dicyclomine HCl 10 mg 04/29/19 10:08 04/29/19 11:28 Bentyl PO 10 mg QID PRN Administration GI spasm Famotidine 20 mg 04/27/19 21:00 04/29/19 20:48 Pepcid PO 20 mg BID MOOK Administration Midodrine 2.5 mg 04/28/19 15:00 04/29/19 20:47 Proamatine PO 2.5 mg TID MOOK Administration Morphine Sulfate 2 mg 04/28/19 20:15 04/29/19 14:09 Morphine SLOW IVP 2 mg Q4H PRN Administration Moderate Pain (4-6) Sacubitril/Valsartan 1 tab 04/29/19 21:00 04/29/19 20:48 Entresto 24 Mg-26 Mg Tablet PO 1 tab BID MOOK Administration Simethicone 80 mg 04/29/19 10:08 04/29/19 11:28 Mylicon Chewable PO 80 mg PCHS PRN Administration Gas Pain Sodium Chloride 10 ml 04/27/19 17:07 04/29/19 14:11 Flush - Normal Saline IVF 10 ml PRN PRN Administration Saline Flush Tamsulosin HCl 0.4 mg 04/29/19 21:00 04/29/19 20:48 Flomax PO 0.4 mg HS MOOK Administration Zolpidem Tartrate 5 mg 04/28/19 12:11 04/28/19 21:04 Ambien PO 5 mg HS PRN Administration Insomnia - Exam General Appearance: NAD Neck: supple, no JVD Heart: RRR, no gallops Respiratory: CTAB, no rales Gastrointestinal: soft, non-distended, normal bowel sounds, no guarding, no rigidity Gastrointestinal - other findings: mild RUQ tend Extremities: no cyanosis Hosp A/P - Plan IMPRESSION: 1. Syncopal episode secondary to hypotension. (patient was not taking his medication appropriately.) 2. Abd pain - ?etio - CT abd neg, labs ok 3. Chronic systolic and diastolic heart failure, ejection fraction 15% to 20% range, s/p AICD. 4. Acute kidney injury on chronic kidney disease stage 5. Hyponatremia. 6. Type 2 myocardial infarction. 7. Chronic anemia. 8. Benign prostatic hypertrophy. 9. Paroxysmal atrial fibrillation, on amiodarone. 10. Gastroesophageal reflux disease. 11. Chronic insomnia. 12. Chronic hypotension, on midodrine. PLAN: Check RUQ USG AM labs Change Flomax to HS Consider reducing Entresto dose Cont other meds
[2019-04-30 04:24] LABS: #Eosinphils 0.1 thou/uL (0.0-0.7); #Lymphocytes 1.4 thou/uL (1.20-3.40); #Monocytes 0.5 thou/uL (0.11-0.59); #Neutrophils 1.9 thou/uL (1.40-6.50); %Basophils 1.1 % (0.0-1.0); %Eosinophils 2.5 % (0.0-10.0); %Lymphocytes 35.4 % (21.0-51.0); %Monocytes 12.6 % (0.0-10.0); %Neutrophils 48.4 % (42.0-75.0); Hemoglobin 12.3 g/dL (14.0-18.0); Mean Corpuscular HGB CONC 33.7 g/dL (32.0-36.0); Mean Corpuscular Hemoglobin 31.4 pg (27.0-31.0); Mean Corpuscular Volume 93.4 fL (78.0-98.0); Mean Platelet Volume 8.7 fL (7.4-10.4); Platelet Count 189 thou/uL (130-400); RBC Distribution Width 12.1 % (11.5-14.5); Red Blood Cell (RBC) Count 3.91 mill/uL (4.70-6.10)
[2019-04-30 04:41] LABS: ALT (SGPT) 15 U/L (8-55); AST (SGOT) 18 U/L (5-34); Albumin 3.4 g/dL (3.4-4.8); Alkaline Phosphatase 57 U/L (40-110); Anion Gap 13 mmol/L (10-20); BUN (Urea Nitrogen) 17 mg/dL (8.4-25.7); Bilirubin, Total 0.7 mg/dL (0.2-1.2); Calc. Creatinine Clearance 61 mL/min (70-130); Calcium 8.5 mg/dL (7.8-10.44); Carbon Dioxide 22 mmol/L (23-31); Chloride 105 mmol/L (98-107); Estimated GFR-MDRD 64; Globulin 3.1 g/dL (2.4-3.5); Glucose 94 mg/dL (80-115); Potassium 3.5 mmol/L (3.5-5.1); Protein, Total 6.5 g/dL (5.8-8.1); Sodium 136 mmol/L (136-145)
--- NOTE | 2019-04-30 07:39 | ULT ---
Sonogram right upper quadrant HISTORY: Right upper quadrant pain. FINDINGS: Echogenic stones with shadowing are present within the incompletely distended gallbladder. Patient was reportedly tender over the gallbladder fossa at the time of the exam. Common duct is dilated at 1.0 cm. No internal stones are reliably demonstrated. Liver is unremarkable. No free fluid in the abdomen. IMPRESSION: Cholelithiasis. Findings of acute cholecystitis include positive sonographic Smalls sign and dilated common bile duct. Clinical correlation regarding other signs and symptoms of acute cholecystitis is required
[2019-04-30] MEDS: Piperacillin/Tazobactam 3.375 GM in Sodium Chloride 0.9% 100 ML IVPB SCH ×3 (09:59→22:12)
[2019-04-30] MEDS: Amiodarone 200 MG TAB PO SCH (11:09)
[2019-04-30] MEDS: Midodrine HCl 5 MG TAB PO SCH ×3 (11:10→22:14)
[2019-04-30] MEDS: Famotidine 20 MG TAB PO SCH ×2 (11:10→22:15)
--- NOTE | 2019-04-30 11:57 | CON ---
DATE OF CONSULTATION: 04/30/2019 CHIEF COMPLAINT: Abdominal pain. HISTORY OF PRESENT ILLNESS: This is a 69-year-old male who presented with abdominal pain and syncope, seen in the emergency room where he was found to have upper abdominal pain. He had an ultrasound showing gallstones and evidence of acute cholecystitis. He also has a dilated common bile duct at 1 cm. He did not have gallbladder wall thickening or pericholecystic fluid. I have been consulted for cholecystectomy. Please note, he has a history of severe cardiomyopathy and is hypotensive even on standing and he has been seen by Dr. Forbes during this hospitalization. His pain is slightly improved today. PAST MEDICAL HISTORY: Includes severe cardiomyopathy, diastolic heart dysfunction, BPH, and GERD. PAST SURGICAL HISTORY: Includes neck surgery and pacemaker. ALLERGIES: CODEINE, DULOXETINE, MIRTAZAPINE, AND NIACIN. MEDICATIONS: Medicines taken daily, see long list. PHYSICAL EXAMINATION: VITAL SIGNS: Blood pressure is 96/62, pulse 69, respirations are 20. He is afebrile. HEENT: Sclerae anicteric. Oropharynx clear. NECK: No lymphadenopathy. CHEST: Coarse breath sounds. HEART: Regular rate. ABDOMEN: Soft. He is slightly tender in the upper abdomen. No abdominal or inguinal hernias. EXTREMITIES: No ischemic or edema to extremities. LABORATORY DATA: White blood cell count is 4, hemoglobin 12, and platelet count is 189. Sodium 136, potassium 3.5, and creatinine 1.35. Liver function tests are normal. Ultrasound shows gallstones. ASSESSMENT: 1. Ultrasound showing gallstones with pain in the right upper quadrant on exam, but no secondary signs of cholecystitis. He does have a dilated common bile duct. 2. Severe cardiomyopathy. PLAN: There would be no plans for surgery in Mr. Sandhu. He is not a candidate for surgery. If his symptoms persist, I would recommend that we place order for CT-guided cholecystostomy tube. Due to his significant end-stage heart disease and poor prognosis, he is never going to be a candidate for an operative procedure for his gallbladder. We will follow on an as-needed basis. Job ID: [id number]
[2019-04-30] MEDS: Morphine 2 MG/ML SYRINGE SLOW IVP PRN (20:48)
--- NOTE | 2019-04-30 21:52 | PDOC.HOSPP ---
- Subjective Encounter Date: 04/30/19 Encounter Time: 09:30 Subjective: Patient seen and examined for Syncope. RUQ pain improving. No nausea. No other complaints. No overnight events - Objective Vital Signs & Weight: Vital Signs (12 hours) Temp Pulse Pulse Pulse Resp BP BP 04/30/19 16:05 97.7 F 69 18 04/30/19 13:05 88 72 92/68 04/30/19 11:25 96.9 F L 44 L 20 123/71 04/30/19 10:00 BP BP Pulse Ox Pulse Ox Pulse Ox 04/30/19 16:05 99/64 96 04/30/19 13:05 98 97 04/30/19 11:25 100/66 96/63 99 04/30/19 10:00 95 Weight Weight 179 lb 12.8 oz I&O: 04/29/19 04/30/19 05/01/19 06:59 06:59 06:59 Intake Total 9190 002 8169 Output Total 1250 1425 625 Balance 60 -465 430 Result Diagrams: 04/30/19 04:05 04/30/19 04:05 EKG Reviewed by me: Yes (Tele paced) Hospitalist ROS - Review of Systems Respiratory: denies: cough, dry, shortness of breath, hemoptysis, SOB with excertion, pleuritic pain, sputum, wheezing, other Cardiovascular: denies: chest pain, palpitations, orthopnea, paroxysmal noc. dyspnea, edema, light headedness, other - Medication Medications: Active Medications Generic Name Dose Route Start Last Admin Trade Name Freq PRN Reason Stop Dose Admin Acetaminophen 650 mg 04/27/19 17:07 04/28/19 18:13 Tylenol PO 650 mg Q4H PRN Administration Headache/Fever/Mild Pain (1-3) Al Hydroxide/Mg Hydroxide 30 ml 04/28/19 18:22 04/28/19 18:44 Maalox PO 30 ml Q6H PRN Administration Heartburn or Indigestion Amiodarone HCl 100 mg 04/29/19 09:00 04/30/19 11:09 Cordarone PO 100 mg DAILY MOOK Administration Aspirin 325 mg 04/29/19 09:00 04/29/19 11:28 Aspirin PO 325 mg DAILY MOOK Administration Calcium Carbonate 1,000 mg 04/28/19 18:22 04/28/19 18:45 Tums PO 1,000 mg Q4H PRN Administration Heartburn or Indigestion Dicyclomine HCl 10 mg 04/29/19 10:08 04/29/19 11:28 Bentyl PO 10 mg QID PRN Administration GI spasm Famotidine 20 mg 04/27/19 21:00 04/30/19 11:10 Pepcid PO 20 mg BID MOOK Administration Piperacillin Sod/Tazobactam 100 mls @ 200 mls/hr 04/30/19 09:00 04/30/19 14: 44 Sod 3.375 gm/ Sodium Chloride IVPB 100 mls 0300,0900,1500,2100 MOOK Administration Midodrine 2.5 mg 04/28/19 15:00 04/30/19 15:47 Proamatine PO Not Given TID MOOK Morphine Sulfate 2 mg 04/28/19 20:15 04/30/19 20:48 Morphine SLOW IVP 2 mg Q4H PRN Administration Moderate Pain (4-6) Pantoprazole Sodium 40 mg 04/29/19 09:00 04/30/19 11:11 Protonix PO 40 mg DAILY MOOK Administration Sacubitril/Valsartan 1 tab 04/29/19 21:00 04/30/19 11:34 Entresto 24 Mg-26 Mg Tablet PO 1 tab BID MOOK Administration Simethicone 80 mg 04/29/19 10:08 04/29/19 11:28 Mylicon Chewable PO 80 mg PCHS PRN Administration Gas Pain Sodium Chloride 10 ml 04/27/19 17:07 04/29/19 14:11 Flush - Normal Saline IVF 10 ml PRN PRN Administration Saline Flush Tamsulosin HCl 0.4 mg 04/29/19 21:00 04/29/19 20:48 Flomax PO 0.4 mg HS MOOK Administration Zolpidem Tartrate 5 mg 04/28/19 12:11 04/28/19 21:04 Ambien PO 5 mg HS PRN Administration Insomnia - Exam General Appearance: NAD Neck: supple, no JVD Heart: RRR, no gallops Respiratory: CTAB, no rales Gastrointestinal: soft, non-distended, normal bowel sounds, no guarding, no rigidity Gastrointestinal - other findings: minimal RUQ tenderness Hosp A/P - Plan DVT proph w/SCDs IMPRESSION: 1. Syncopal episode secondary to hypotension. (patient was not taking his medication appropriately.) 2. ?Acute Cholecystitis with Cholelithiasis 3. Chronic systolic and diastolic heart failure, ejection fraction 15% to 20% range, s/p AICD. 4. Acute kidney injury on chronic kidney disease stage 5. Hyponatremia. 6. Type 2 myocardial infarction. 7. Chronic anemia. 8. Benign prostatic hypertrophy. 9. Paroxysmal atrial fibrillation, on amiodarone. 10. Gastroesophageal reflux disease. 11. Chronic insomnia. 12. Chronic hypotension, on midodrine. PLAN: Gen surg consult Add IV Zosyn Cont Entresto and other meds AM labs
[2019-04-30] MEDS: Tamsulosin HCl 0.4 MG CAP PO SCH (22:18)
[2019-05-01] MEDS: Piperacillin/Tazobactam 3.375 GM in Sodium Chloride 0.9% 100 ML IVPB SCH ×4 (02:49→21:51)
[2019-05-01 06:42] LABS: Eosinophils 2 % (0-10); Hemoglobin 12.5 g/dL (14.0-18.0); Lymphocytes 34 % (21-51); MDiff Complete? YES; Mean Corpuscular HGB CONC 34.1 g/dL (32.0-36.0); Mean Corpuscular Hemoglobin 31.6 pg (27.0-31.0); Mean Corpuscular Volume 92.6 fL (78.0-98.0); Mean Platelet Volume 9.3 fL (7.4-10.4); Monocytes 14 % (0-10); Neutrophil 50 % (42-75); Platelet Count 174 thou/uL (130-400); RBC Distribution Width 12.2 % (11.5-14.5); Red Blood Cell (RBC) Count 3.96 mill/uL (4.70-6.10); White Blood Cell (WBC) Count 3.6 thou/uL (4.8-10.8)
[2019-05-01 06:52] LABS: ALT (SGPT) 15 U/L (8-55); AST (SGOT) 20 U/L (5-34); Albumin 3.4 g/dL (3.4-4.8); Alkaline Phosphatase 55 U/L (40-110); Anion Gap 12 mmol/L (10-20); BUN (Urea Nitrogen) 14 mg/dL (8.4-25.7); Bilirubin, Total 0.8 mg/dL (0.2-1.2); Calc. Creatinine Clearance 55 mL/min (70-130); Calcium 8.6 mg/dL (7.8-10.44); Carbon Dioxide 22 mmol/L (23-31); Chloride 105 mmol/L (98-107); Estimated GFR-MDRD 59; Globulin 3.3 g/dL (2.4-3.5); Glucose 74 mg/dL (80-115); Lipase 30 U/L (8-78); Potassium 3.6 mmol/L (3.5-5.1); Protein, Total 6.7 g/dL (5.8-8.1); Sodium 135 mmol/L (136-145)
[2019-05-01] MEDS: Amiodarone 200 MG TAB PO SCH (10:02)
[2019-05-01] MEDS: Famotidine 20 MG TAB PO SCH ×2 (10:03→21:52)
[2019-05-01] MEDS: Aspirin 325 MG TAB PO SCH (10:03)
[2019-05-01] MEDS: Midodrine HCl 5 MG TAB PO SCH ×3 (10:04→21:52)
--- NOTE | 2019-05-01 12:51 | PDOC.HOSPP ---
- Subjective Encounter Date: 05/01/19 Encounter Time: 12:40 Subjective: f/u s/p syncope likely iatrogenic and abd pain with cholelithiasis on Zosyn. Gen surgery recommending conservative mgmt and no surgical intervention due to severe cardiomyopathy. - Objective Vital Signs & Weight: Vital Signs (12 hours) Temp Pulse Resp BP BP BP BP 05/01/19 11:30 97.8 F 77 18 87/55 L 88/56 L 99/61 05/01/19 07:44 97.0 F L 72 12 89/58 L 05/01/19 02:57 97.6 F 62 18 98/71 Pulse Ox 05/01/19 11:30 97 05/01/19 07:44 97 05/01/19 02:57 96 Weight Weight 174 lb I&O: 04/30/19 05/01/19 05/02/19 06:59 06:59 06:59 Intake Total 960 1055 Output Total 1425 625 Balance -465 430 Result Diagrams: 05/01/19 05:04 05/01/19 05:04 Additional Labs: Laboratory Tests 04/27/19 04/28/19 04/29/19 14:20 04:26 05:09 Hgb 13.4 L 12.7 L Creatinine 1.37 H Lactic Acid Lipase 04/29/19 04/29/19 04/30/19 10:26 10:26 04:05 Hgb Creatinine 1.35 H Lactic Acid 1.1 Lipase 35 04/30/19 05/01/19 04:05 05:04 Hgb 12.3 L Creatinine Lactic Acid Lipase 30 EKG Reviewed by me: Yes (Tele - V-paced) Hospitalist ROS - Medication Medications: Active Medications Generic Name Dose Route Start Last Admin Trade Name Freq PRN Reason Stop Dose Admin Acetaminophen 650 mg 04/27/19 17:07 04/28/19 18:13 Tylenol PO 650 mg Q4H PRN Administration Headache/Fever/Mild Pain (1-3) Al Hydroxide/Mg Hydroxide 30 ml 04/28/19 18:22 04/28/19 18:44 Maalox PO 30 ml Q6H PRN Administration Heartburn or Indigestion Amiodarone HCl 100 mg 04/29/19 09:00 05/01/19 10:02 Cordarone PO 100 mg DAILY MOOK Administration Aspirin 325 mg 04/29/19 09:00 05/01/19 10:03 Aspirin PO 325 mg DAILY MOOK Administration Calcium Carbonate 1,000 mg 04/28/19 18:22 04/28/19 18:45 Tums PO 1,000 mg Q4H PRN Administration Heartburn or Indigestion Dicyclomine HCl 10 mg 04/29/19 10:08 04/29/19 11:28 Bentyl PO 10 mg QID PRN Administration GI spasm Famotidine 20 mg 04/27/19 21:00 05/01/19 10:03 Pepcid PO 20 mg BID MOOK Administration Piperacillin Sod/Tazobactam 100 mls @ 200 mls/hr 04/30/19 09:00 05/01/19 10: 02 Sod 3.375 gm/ Sodium Chloride IVPB 100 mls 0300,0900,1500,2100 MOOK Administration Midodrine 2.5 mg 04/28/19 15:00 05/01/19 10:04 Proamatine PO 2.5 mg TID MOOK Administration Morphine Sulfate 2 mg 04/28/19 20:15 04/30/19 20:48 Morphine SLOW IVP 2 mg Q4H PRN Administration Moderate Pain (4-6) Pantoprazole Sodium 40 mg 04/29/19 09:00 05/01/19 10:04 Protonix PO 40 mg DAILY MOOK Administration Sacubitril/Valsartan 1 tab 04/29/19 21:00 05/01/19 10:04 Entresto 24 Mg-26 Mg Tablet PO 1 tab BID MOOK Administration Simethicone 80 mg 04/29/19 10:08 04/29/19 11:28 Mylicon Chewable PO 80 mg PCHS PRN Administration Gas Pain Sodium Chloride 10 ml 04/27/19 17:07 04/29/19 14:11 Flush - Normal Saline IVF 10 ml PRN PRN Administration Saline Flush Tamsulosin HCl 0.4 mg 04/29/19 21:00 04/30/19 22:18 Flomax PO 0.4 mg HS MOOK Administration Zolpidem Tartrate 5 mg 04/28/19 12:11 04/28/19 21:04 Ambien PO 5 mg HS PRN Administration Insomnia - Exam General Appearance: NAD Eye: PERRL, anicteric sclera ENT: normocephalic atraumatic, no oropharyngeal lesions Neck: supple, symmetric, no JVD, no thyromegaly, no lymphadenopathy Heart: RRR, no gallops, no rubs, normal peripheral pulses Respiratory: no wheezes Respiratory - other findings: diminished in bases Gastrointestinal: soft, non-distended, normal bowel sounds Gastrointestinal - other findings: mild TTP in mid-epigastric region Extremities: no cyanosis, no clubbing, no edema Skin: normal turgor, no lesions Neurological: cranial nerve grossly intact, no new deficit Musculoskeletal: normal tone, generalized weakness Psychiatric: normal affect, A&O x 3 Hosp A/P (1) Syncope due to orthostatic hypotension Code(s): I95.1 - ORTHOSTATIC HYPOTENSION Status: Acute Plan: Stable currently, continue Midodrine, serial BP monitoring, adjust BP regimen as clinically indicated (2) Acute cholecystitis Code(s): K81.0 - ACUTE CHOLECYSTITIS Status: Acute Plan: Suspected, continue Zosyn, pain control, appreciate Gen surgery recs, no plan for surgical intervention due to Cardiomyopathy (3) Acute kidney injury superimposed on chronic kidney disease Code(s): N17.9 - ACUTE KIDNEY FAILURE, UNSPECIFIED; N18.9 - CHRONIC KIDNEY DISEASE, UNSPECIFIED Status: Acute Plan: Improved, avoid nephrotoxic meds and limit contrast exposure (4) Paroxysmal atrial fibrillation Code(s): I48.0 - PAROXYSMAL ATRIAL FIBRILLATION Status: Acute Plan: SR and V-pacing - Plan plan discussed w/ family, continue antibiotics, licensed social worker, out of bed/ ambulate, DVT proph w/SCDs Stable currently Continue Zosyn IV OOB/ambulate D/C Morphine Sulfate Start Tramadol AM lab: CMP, CBC
[2019-05-01] MEDS ORDERED: traMADol HCl 50 MG TAB PO PRN (13:03)
[2019-05-01] MEDS: Tamsulosin HCl 0.4 MG CAP PO SCH (21:52)
[2019-05-01] MEDS: Mag-Al 1200 mg/1200 mg/30 ML UDCUP PO PRN (23:44)
[2019-05-02] MEDS: Piperacillin/Tazobactam 3.375 GM in Sodium Chloride 0.9% 100 ML IVPB SCH ×4 (02:15→21:18)
[2019-05-02 06:00] LABS: #Eosinphils 0.1 thou/uL (0.0-0.7); #Lymphocytes 1.3 thou/uL (1.20-3.40); #Monocytes 0.5 thou/uL (0.11-0.59); %Basophils 0.5 % (0.0-1.0); %Eosinophils 2.5 % (0.0-10.0); %Lymphocytes 33.2 % (21.0-51.0); %Monocytes 11.7 % (0.0-10.0); %Neutrophils 52.1 % (42.0-75.0); Hemoglobin 11.7 g/dL (14.0-18.0); Mean Corpuscular HGB CONC 34.1 g/dL (32.0-36.0); Mean Corpuscular Hemoglobin 32.2 pg (27.0-31.0); Mean Corpuscular Volume 94.3 fL (78.0-98.0); Mean Platelet Volume 8.4 fL (7.4-10.4); Platelet Count 176 thou/uL (130-400); RBC Distribution Width 12.2 % (11.5-14.5); Red Blood Cell (RBC) Count 3.64 mill/uL (4.70-6.10); White Blood Cell (WBC) Count 3.8 thou/uL (4.8-10.8)
[2019-05-02 06:21] LABS: ALT (SGPT) 14 U/L (8-55); AST (SGOT) 18 U/L (5-34); Albumin 3.3 g/dL (3.4-4.8); Alkaline Phosphatase 51 U/L (40-110); Anion Gap 11 mmol/L (10-20); BUN (Urea Nitrogen) 15 mg/dL (8.4-25.7); Bilirubin, Total 0.6 mg/dL (0.2-1.2); Calc. Creatinine Clearance 51 mL/min (70-130); Calcium 8.2 mg/dL (7.8-10.44); Carbon Dioxide 22 mmol/L (23-31); Chloride 107 mmol/L (98-107); Estimated GFR-MDRD 52; Glucose 87 mg/dL (80-115); Potassium 3.6 mmol/L (3.5-5.1); Protein, Total 6.3 g/dL (5.8-8.1); Sodium 136 mmol/L (136-145)
[2019-05-02] MEDS: Famotidine 20 MG TAB PO SCH ×2 (09:53→21:20)
[2019-05-02] MEDS: Amiodarone 200 MG TAB PO SCH (09:54)
[2019-05-02] MEDS: Aspirin 325 MG TAB PO SCH (09:54)
[2019-05-02] MEDS: Midodrine HCl 5 MG TAB PO SCH ×3 (09:55→21:19)
[2019-05-02] MEDS ORDERED: guaiFENesin/Dextromethorphan 10 ML UDCUP PO PRN (11:24)
[2019-05-02] MEDS: Guaifenesin DM 100-10/5 ML UDCUP PO PRN (14:30)
--- NOTE | 2019-05-02 17:50 | PDOC.HOSPP ---
- Subjective Encounter Date: 05/02/19 Encounter Time: 17:45 Subjective: f/u for acute cholecystitis tx conservatively with Zosyn. No planned surgical intervention due to cardiomyopathy. States some cough/SOB and uses home inhalers. Quit smoking 1 year ago. - Objective Vital Signs & Weight: Vital Signs (12 hours) Temp Pulse Resp BP BP BP BP 05/02/19 15:18 97.6 F 64 20 96/68 05/02/19 10:57 97.7 F 59 L 17 91/61 05/02/19 08:28 98.0 F 75 18 98/70 95/66 99/63 Pulse Ox 05/02/19 15:18 97 05/02/19 10:57 94 L 05/02/19 08:28 98 Weight Weight 179 lb I&O: 05/01/19 05/02/19 05/03/19 06:59 06:59 06:59 Intake Total 1055 1796 Output Total 625 1600 Balance 430 196 Result Diagrams: 05/02/19 05:35 05/02/19 05:35 Additional Labs: Laboratory Tests 04/27/19 04/28/19 04/29/19 14:20 04:26 05:09 Hgb 13.4 L 12.7 L Creatinine 1.37 H Lactic Acid Lipase 04/29/19 04/29/19 04/30/19 10:26 10:26 04:05 Hgb Creatinine 1.35 H Lactic Acid 1.1 Lipase 35 04/30/19 05/01/19 04:05 05:04 Hgb 12.3 L Creatinine Lactic Acid Lipase 30 EKG Reviewed by me: Yes (Tele - V-pacing) Hospitalist ROS - Medication Medications: Active Medications Generic Name Dose Route Start Last Admin Trade Name Freq PRN Reason Stop Dose Admin Acetaminophen 650 mg 04/27/19 17:07 04/28/19 18:13 Tylenol PO 650 mg Q4H PRN Administration Headache/Fever/Mild Pain (1-3) Al Hydroxide/Mg Hydroxide 30 ml 04/28/19 18:22 05/01/19 23:44 Maalox PO 30 ml Q6H PRN Administration Heartburn or Indigestion Amiodarone HCl 100 mg 04/29/19 09:00 05/02/19 09:54 Cordarone PO 100 mg DAILY MOOK Administration Aspirin 325 mg 04/29/19 09:00 05/02/19 09:54 Aspirin PO 325 mg DAILY MOOK Administration Calcium Carbonate 1,000 mg 04/28/19 18:22 04/28/19 18:45 Tums PO 1,000 mg Q4H PRN Administration Heartburn or Indigestion Dicyclomine HCl 10 mg 04/29/19 10:08 04/29/19 11:28 Bentyl PO 10 mg QID PRN Administration GI spasm Famotidine 20 mg 04/27/19 21:00 05/02/19 09:53 Pepcid PO 20 mg BID MOOK Administration Guaifenesin/Dextromethorphan 10 ml 05/02/19 14:22 05/02/19 14:30 Robitussin Dm PO 10 ml Q6H PRN Administration Cough Piperacillin Sod/Tazobactam 100 mls @ 200 mls/hr 04/30/19 09:00 05/02/19 14: 30 Sod 3.375 gm/ Sodium Chloride IVPB 100 mls 0300,0900,1500,2100 MOOK Administration Midodrine 2.5 mg 04/28/19 15:00 05/02/19 15:15 Proamatine PO 2.5 mg TID MOOK Administration Pantoprazole Sodium 40 mg 04/29/19 09:00 05/02/19 09:55 Protonix PO 40 mg DAILY MOOK Administration Sacubitril/Valsartan 1 tab 04/29/19 21:00 05/02/19 09:55 Entresto 24 Mg-26 Mg Tablet PO 1 tab BID MOOK Administration Simethicone 80 mg 04/29/19 10:08 04/29/19 11:28 Mylicon Chewable PO 80 mg PCHS PRN Administration Gas Pain Sodium Chloride 10 ml 04/27/19 17:07 04/29/19 14:11 Flush - Normal Saline IVF 10 ml PRN PRN Administration Saline Flush Tamsulosin HCl 0.4 mg 04/29/19 21:00 05/01/19 21:52 Flomax PO 0.4 mg HS MOOK Administration Tramadol HCl 50 mg 05/01/19 13:03 05/01/19 21:54 Ultram PO 50 mg Q6H PRN Administration Moderate Pain (4-6) Zolpidem Tartrate 5 mg 04/28/19 12:11 04/28/19 21:04 Ambien PO 5 mg HS PRN Administration Insomnia - Exam General Appearance: NAD, awake alert Eye: PERRL, anicteric sclera ENT: normocephalic atraumatic, no oropharyngeal lesions Neck: supple, symmetric, no JVD, no thyromegaly, no lymphadenopathy Heart: RRR, no gallops, no rubs, normal peripheral pulses Respiratory: wheezes Respiratory - other findings: few coarse sounds in bases bilat Gastrointestinal: soft, non-tender, non-distended, normal bowel sounds, no palpable masses, no guarding Extremities: no cyanosis, no clubbing, no edema Skin: normal turgor, no lesions Neurological: cranial nerve grossly intact, no new deficit Musculoskeletal: normal tone, generalized weakness Psychiatric: normal affect, A&O x 3 Hosp A/P (1) Syncope due to orthostatic hypotension Code(s): I95.1 - ORTHOSTATIC HYPOTENSION Status: Acute Plan: Hold all antihypertensives, may need to titrate Entrest, continue Midodrine 2.5mg TID (2) Acute cholecystitis Code(s): K81.0 - ACUTE CHOLECYSTITIS Status: Acute Plan: Suspected, continue Zosyn, conservative mgmt, no surgical intervention recommended (3) Acute kidney injury superimposed on chronic kidney disease Code(s): N17.9 - ACUTE KIDNEY FAILURE, UNSPECIFIED; N18.9 - CHRONIC KIDNEY DISEASE, UNSPECIFIED Status: Acute Plan: Slow improvement, avoid nephrotoxic meds and limit contrast, serial creatinine (4) Paroxysmal atrial fibrillation Code(s): I48.0 - PAROXYSMAL ATRIAL FIBRILLATION Status: Acute Plan: V-paced, continue ASA/Amiodarone - Plan continue antibiotics, PT/OT, social work specialist, out of bed/ambulate, DVT proph w/ SCDs Stable currently Continue Zosyn IV OOB/ambulate D/C Morphine Sulfate Start Tramadol AM lab: CMP, CBC Likely home in 24h to [place]
[2019-05-02] MEDS: Mometasone/Formoterol 120 PUFF INHALER INH SCH (18:52)
[2019-05-02] MEDS: Tamsulosin HCl 0.4 MG CAP PO SCH (21:20)
[2019-05-03] MEDS: Piperacillin/Tazobactam 3.375 GM in Sodium Chloride 0.9% 100 ML IVPB SCH ×4 (03:03→21:07)
[2019-05-03] MEDS: Guaifenesin DM 100-10/5 ML UDCUP PO PRN ×3 (03:10→17:58)
[2019-05-03 05:34] LABS: Anion Gap 12 mmol/L (10-20); BUN (Urea Nitrogen) 11 mg/dL (8.4-25.7); Calc. Creatinine Clearance 53 mL/min (70-130); Calcium 7.9 mg/dL (7.8-10.44); Carbon Dioxide 19 mmol/L (23-31); Chloride 108 mmol/L (98-107); Estimated GFR-MDRD 55; Glucose 136 mg/dL (80-115); Potassium 3.2 mmol/L (3.5-5.1); Sodium 136 mmol/L (136-145)
[2019-05-03] MEDS: Mometasone/Formoterol 120 PUFF INHALER INH SCH ×2 (07:09→18:54)
[2019-05-03] MEDS: Aspirin 325 MG TAB PO SCH (09:35)
[2019-05-03] MEDS: Famotidine 20 MG TAB PO SCH ×2 (09:35→21:07)
[2019-05-03] MEDS: Midodrine HCl 5 MG TAB PO SCH (09:35)
[2019-05-03] MEDS: Amiodarone 200 MG TAB PO SCH (09:35)
[2019-05-03] MEDS ORDERED: Potassium Chloride 20 MEQ TAB PO SCH (11:15)
--- NOTE | 2019-05-03 18:20 | PDOC.HOSPP ---
- Subjective Encounter Date: 05/03/19 Encounter Time: 09:00 Subjective: f/u for acute cholecystitis managed with IV abx. Feels better overall. Less SOB today. BP low per nursing overnight but asymptomatic. - Objective Vital Signs & Weight: Vital Signs (12 hours) Temp Pulse Resp BP BP BP BP 05/03/19 15:32 97.8 F 77 23 H 87/61 L 87/65 L 89/61 L 05/03/19 14:11 76 14 05/03/19 11:33 109/48 L 82/63 L 85/54 L 05/03/19 11:13 97.9 F 80 16 85/58 L 05/03/19 10:24 73 16 05/03/19 07:30 98.2 F 62 18 83/54 L 05/03/19 07:10 Pulse Ox 05/03/19 15:32 97 05/03/19 14:11 98 05/03/19 11:33 05/03/19 11:13 97 05/03/19 10:24 97 05/03/19 07:30 98 05/03/19 07:10 96 Weight Weight 181 lb 9.6 oz I&O: 05/02/19 05/03/19 05/04/19 06:59 06:59 06:59 Intake Total 1796 1250 Output Total 1600 1400 Balance 196 -150 Result Diagrams: 05/02/19 05:35 05/03/19 04:39 Additional Labs: Laboratory Tests 04/27/19 04/28/19 04/29/19 14:20 04:26 05:09 Hgb 13.4 L 12.7 L Creatinine 1.37 H Lactic Acid Lipase 04/29/19 04/29/19 04/30/19 10:26 10:26 04:05 Hgb Creatinine 1.35 H Lactic Acid 1.1 Lipase 35 04/30/19 05/01/19 04:05 05:04 Hgb 12.3 L Creatinine Lactic Acid Lipase 30 EKG Reviewed by me: Yes (Tele - SR) Hospitalist ROS - Medication Medications: Active Medications Generic Name Dose Route Start Last Admin Trade Name Freq PRN Reason Stop Dose Admin Acetaminophen 650 mg 04/27/19 17:07 04/28/19 18:13 Tylenol PO 650 mg Q4H PRN Administration Headache/Fever/Mild Pain (1-3) Al Hydroxide/Mg Hydroxide 30 ml 04/28/19 18:22 05/01/19 23:44 Maalox PO 30 ml Q6H PRN Administration Heartburn or Indigestion Albuterol/Ipratropium 3 ml 05/02/19 19:00 05/03/19 14:11 Duoneb NEB 3 ml [id number] MOOK Administration Amiodarone HCl 100 mg 04/29/19 09:00 05/03/19 09:35 Cordarone PO 100 mg DAILY MOOK Administration Aspirin 325 mg 04/29/19 09:00 05/03/19 09:35 Aspirin PO 325 mg DAILY MOOK Administration Calcium Carbonate 1,000 mg 04/28/19 18:22 04/28/19 18:45 Tums PO 1,000 mg Q4H PRN Administration Heartburn or Indigestion Dicyclomine HCl 10 mg 04/29/19 10:08 04/29/19 11:28 Bentyl PO 10 mg QID PRN Administration GI spasm Famotidine 20 mg 04/27/19 21:00 05/03/19 09:35 Pepcid PO 20 mg BID MOOK Administration Guaifenesin/Dextromethorphan 10 ml 05/02/19 14:22 05/03/19 17:58 Robitussin Dm PO 10 ml Q6H PRN Administration Cough Piperacillin Sod/Tazobactam 100 mls @ 200 mls/hr 04/30/19 09:00 05/03/19 15: 31 Sod 3.375 gm/ Sodium Chloride IVPB 100 mls 0300,0900,1500,2100 MOOK Administration Mometasone Furoate/Formoterol Fumar 2 puff 05/02/19 18:30 05/03/19 07:09 Dulera 200 Mcg/5 Mcg Inhaler INH Not Given BID-RT MOOK Pantoprazole Sodium 40 mg 04/29/19 09:00 05/03/19 09:35 Protonix PO 40 mg DAILY MOOK Administration Sacubitril/Valsartan 1 tab 04/29/19 21:00 05/03/19 09:35 Entresto 24 Mg-26 Mg Tablet PO 1 tab BID MOOK Administration Simethicone 80 mg 04/29/19 10:08 04/29/19 11:28 Mylicon Chewable PO 80 mg PCHS PRN Administration Gas Pain Sodium Chloride 10 ml 04/27/19 17:07 04/29/19 14:11 Flush - Normal Saline IVF 10 ml PRN PRN Administration Saline Flush Tamsulosin HCl 0.4 mg 04/29/19 21:00 05/02/19 21:20 Flomax PO 0.4 mg HS MOOK Administration Tramadol HCl 50 mg 05/01/19 13:03 05/01/19 21:54 Ultram PO 50 mg Q6H PRN Administration Moderate Pain (4-6) Zolpidem Tartrate 5 mg 04/28/19 12:11 04/28/19 21:04 Ambien PO 5 mg HS PRN Administration Insomnia - Exam General Appearance: NAD, awake alert Eye: anicteric sclera ENT: normocephalic atraumatic, no oropharyngeal lesions Neck: supple, symmetric, no JVD, no thyromegaly, no lymphadenopathy Heart: RRR, no gallops, no rubs, normal peripheral pulses Respiratory: CTAB Respiratory - other findings: few scattered rhonchi Gastrointestinal: soft, non-tender, non-distended, normal bowel sounds, no palpable masses Extremities: no cyanosis, no clubbing, no edema Skin: normal turgor, no lesions Neurological: cranial nerve grossly intact, no new deficit Musculoskeletal: normal tone, generalized weakness Psychiatric: normal affect, A&O x 3 Hosp A/P (1) Syncope due to orthostatic hypotension Code(s): I95.1 - ORTHOSTATIC HYPOTENSION Status: Acute Plan: Increase Midodrine 5mg TID (2) Acute cholecystitis Code(s): K81.0 - ACUTE CHOLECYSTITIS Status: Acute Plan: Continue IV Zosyn another 24h (3) Acute kidney injury superimposed on chronic kidney disease Code(s): N17.9 - ACUTE KIDNEY FAILURE, UNSPECIFIED; N18.9 - CHRONIC KIDNEY DISEASE, UNSPECIFIED Status: Acute Plan: Improved slowly, continue to avoid nephrotoxic meds and limit contrast (4) Paroxysmal atrial fibrillation Code(s): I48.0 - PAROXYSMAL ATRIAL FIBRILLATION Status: Acute - Plan continue antibiotics, PT/OT, addiction social worker, out of bed/ambulate, DVT proph w/ SCDs Stable currently Continue Zosyn IV OOB/ambulate D/C Morphine Sulfate Start Tramadol Repeat Orthostatic vitals Likely home in 24h to [place]
[2019-05-03] MEDS: Tamsulosin HCl 0.4 MG CAP PO SCH (21:07)
[2019-05-04] MEDS: Piperacillin/Tazobactam 3.375 GM in Sodium Chloride 0.9% 100 ML IVPB SCH ×2 (03:04→09:32)
[2019-05-04] MEDS: Mometasone/Formoterol 120 PUFF INHALER INH SCH (07:12)
--- NOTE | 2019-05-04 08:48 | PRG ---
DATE OF SERVICE: 05/04/2019 SUBJECTIVE: Mr. Sandhu is doing well. No chest pain or pressure. Yesterday, he was taken off the midodrine. OBJECTIVE: VITAL SIGNS: Blood pressure 95/57 earlier and most recently 104/67 and pulse 77. LUNGS: Clear. CARDIAC: Normal S1 and normal S2. ASSESSMENT: 1. Advanced congestive heart failure systolic, chronic, nonischemic cardiomyopathy. 2. Previous defibrillator. 3. History of orthostatic hypotension. 4. The patient has a lot of trouble being compliant with his medications, trouble keeping them straight. PLAN: 1. He has been taken off the midodrine. 2. The only heart medicine at this time is Entresto 24/ twice a day. 3. He takes tamsulosin 0.4 mg at bedtime. Otherwise, he cannot urinate. He cannot tolerate beta blockers due to hypotension. Hopefully, can be able to tolerate this low dose of Entresto. We have not given him any diuretics at this point, if he gets a little bit volume depleted, he has syncope. Long-term prognosis appears guarded to poor. The patient also has not been very compliant and in terms of keeping his medicines straight. Okay to me to be released home. Job ID: [id number]
[2019-05-04] MEDS: Amiodarone 200 MG TAB PO SCH (09:33)
--- NOTE | 2019-05-04 09:33 | DIS ---
DATE OF ADMISSION: 04/29/2019 DATE OF DISCHARGE: 05/03/2019 DISCHARGE DIAGNOSES: 1. Status post syncopal episode secondary to orthostatic hypotension, likely iatrogenic. 2. Acute cholecystitis, mild with cholelithiasis, medically managed. 3. 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 4. Acute kidney injury on chronic kidney disease stage 3. 5. Chronic orthostatic hypotension. CONSULTATIONS: 1. Dr. Forbes with Cardiology Service. 2. Dr. Collins with General Surgery Service. PERTINENT LABORATORY AND X-RAY FINDINGS: Creatinine ranged between 1.27 to 1.60. Estimated GFR ranged between 52 to 68. Magnesium level 2.0. Troponin I ranged between 0.012 to 0.040. CBC showed a white blood cell count ranged between 3.6 to 5.0, hemoglobin ranged between 11.7 to 13.4. Portable chest x-ray dated 04/27/2019, showed bibasilar scarring with mild cardiomegaly. CT of the abdomen and pelvis dated 04/28/2019, showed no acute inflammatory process within the abdomen or pelvis. Abdominal ultrasound dated 04/30/2019, showed cholelithiasis with findings suggestive of acute cholecystitis without common bile duct obstruction. HOSPITAL COURSE: The patient was initially admitted to the telemetry unit after presenting status post syncopal episode. The patient with a chronic history of orthostatic hypotension, on chronic midodrine. The patient underwent extensive evaluation including metabolic and radiographic imaging. The patient was discontinued on Lasix and decreased on Entresto to 24/26 mg b.i.d. The patient was also increased on midodrine to 5 mg t.i.d. The patient was also evaluated for potential mild acute cholecystitis including General Surgery consultation. The patient was not deemed an appropriate candidate for any surgical intervention due to his severe cardiomyopathy and high risk of complications with surgical intervention. The patient was placed on IV Zosyn throughout the hospital course and clinically stabilized without return of abdominal pain. The patient was advanced to regular oral intake and tolerated without difficulty. The patient was noted with labile blood pressures including hypotension, however, remained essentially asymptomatic during the hospital course. Current recommendations are to continue midodrine titrated to clinical response. I have examined the patient at time of discharge and discussed followup instructions. The patient verbalized understanding and in agreement, ready for discharge on 05/03/2019. DISCHARGE MEDICATIONS: 1. Amiodarone 100 mg p.o. daily. 2. Aspirin 325 mg p.o. daily. 3. Ferrous sulfate 325 mg p.o. daily. 4. Protonix 40 mg p.o. daily. 5. Ambien 5 mg p.o. at bedtime. 6. Ciprofloxacin 500 mg p.o. b.i.d. x7 days. 7. Flagyl 500 mg p.o. t.i.d. x7 days. 8. DuoNeb 3 mL nebulized q.4 hours p.r.n. 9. Midodrine 5 mg p.o. t.i.d. 10. Dulera 2 puffs inhaled b.i.d. 11. Entresto 24/26 mg 1 tablet p.o. b.i.d. 12. Flomax 0.4 mg p.o. daily. FOLLOWUP: The patient may follow up with his primary care provider, Dr. Sid Rae within 7 days of discharge. The patient will follow up with the [facility] after discharge. CONDITION ON DISCHARGE: Fair. ACTIVITY: Ad-rashmi. Rolling walker for ambulation. DIET: Heart healthy. CODE STATUS: Full. DISPOSITION: Discharged to [facility] Living with Home Health Services with [facility] on 05/03/2019. TIME SPENT: Total time preparing and coordinating discharge, 35 minutes. Job ID: [id number]
[2019-05-04] MEDS: Famotidine 20 MG TAB PO SCH (09:36)
[2019-05-04] MEDS: Aspirin 325 MG TAB PO SCH (09:36)
[2019-05-04 11:20] VITALS: BP 103/68; TEMP 97.4
--- NOTE | 2019-05-05 08:00 | PQF ---
LAZARUS DAVALOS CHARLES DO [id number] CLINICAL DOCUMENTATION CLARIFICATION FORM: POST DISCHARGE Addendum to original discharge summary date: ____ Late entry note date: __ DATE: 05-05-2019 ATTN:Eric Lindsay Please exercise your independent, professional judgment in responding to the clarification form. Clinical indicators are provided on the bottom of this form for your review Can you please specify whether Type 2 myocardial infarction is ruled in or ruled out during this encounter? Please check appropriate box(s) to clarify if the following diagnosis has been ruled in or ruled out: Type 2 myocardial infarction [ ] Ruled in diagnosis [ ] Continue to treat [ ] Resolved [ x ] Ruled out diagnosis [ ] Cannot rule out diagnosis [ ] Other diagnosis please specify: [ ] Unable to determine For continuity of documentation, please document condition throughout progress notes and discharge summary. Thank You. CLINICAL INDICATORS: HP 04/[address] Griffith reported to ER after he had a syncopal episode PN 04/[address] Forbes advanced dilated cardiomyopathy PN 04/[address] Rust Type 2 myocardial infarction PN 04/[address] Rust syncopal episode secondary to hypotension DS 05/[address] Pantojachronic combined systolic and diastolic CHF RISK FACTOR: HP 04/28 AICD HP 04/28-CHF PN 04/28- Dilated cardiomyopathy PN 04/28- Paroxysmal afib PN 04/28- CKD TREATMENTS: PN- Cardio Consult Imaging- Chest Xray MAR 04/28 Amiodarone 100 mg PO MAR 04/28 Morphine 2 mg IV (This form is maintained as a part of the permanent medical record) 2014 [employer] All Rights Reserved [email or web address] [not provided] MTDD
--- NOTE | 2019-05-05 09:08 | DIS ---
DATE OF ADMISSION: 04/29/2019 DATE OF DISCHARGE: 05/04/2019 ADDENDUM: HOSPITAL COURSE: The patient's discharge was held for approximately 24 hours for blood pressure monitoring in the context of orthostatic hypotension. The patient was discontinued on midodrine to assess blood pressure response for approximately 24 hours. The patient's blood pressure did remain essentially stable with current levels at 104/67. The patient has remained asymptomatic and Cardiology is recommending discontinuation of midodrine for home. The patient continues on Entresto 24/26 mg b.i.d. and will continue indefinitely. Due to the patient's hypotension, the patient is unable to tolerate beta-jose therapy or diuretics with overall guarded prognosis. The patient has remained clinically stable and I have examined the patient at the time of discharge and discussed followup instructions. The patient verbalized understanding and agreement and ready for discharge on 05/04/2019. Please see dictated discharge summary 05/03/2019 for full details and medication reconciliation. Please note midodrine has been discontinued. Job ID: [id number]
== END 2019-05-04 15:15 | DRG 315 ==
LOC: ERS 13:28 → 2SW 17:42 → OBSVTOIN 04-29 12:37 → 2NO 04-30 20:14
PROVIDERS: ADMIT Internal Medicine; ATTEND Internal Medicine
DX: I95.89 Other hypotension (principal); I42.0 Dilated cardiomyopathy; I50.42 Chronic combined systolic (congestive) and diastolic (congestive) heart failure; I13.0 Hypertensive heart and chronic kidney disease with heart failure and stage 1 through stage 4 chronic kidney disease, or unspecified chronic kidney disease; N17.9 Acute kidney failure, unspecified; E87.1 Hypo-osmolality and hyponatremia; K80.00 Calculus of gallbladder with acute cholecystitis without obstruction; E78.5 Hyperlipidemia, unspecified; E78.00 Pure hypercholesterolemia, unspecified; J42 Unspecified chronic bronchitis; F41.9 Anxiety disorder, unspecified; F17.210 Nicotine dependence, cigarettes, uncomplicated; D63.1 Anemia in chronic kidney disease; N40.0 Benign prostatic hyperplasia without lower urinary tract symptoms; N18.3 Chronic kidney disease, stage 3 (moderate); I48.0 Paroxysmal atrial fibrillation; K21.9 Gastro-esophageal reflux disease without esophagitis; F51.04 Psychophysiologic insomnia; K83.8 Other specified diseases of biliary tract; Z88.5 Allergy status to narcotic agent; Z88.8 Allergy status to other drugs, medicaments and biological substances; Z79.899 Other long term (current) drug therapy; Z79.82 Long term (current) use of aspirin; Z95.810 Presence of automatic (implantable) cardiac defibrillator; Z23 Encounter for immunization
CPT/HCPCS: 36415; 36416; 71045; 74177; 76705; 80048; 80053; 81003; 82553; 83605; 83690; 83735; 84484; 85025; 90471; 90662; 93005; 93798; G0008; J1885; J2270; J2543; J3490; J7620

== ENCOUNTER 2019-06-17 11:50 | Emergency (ER) | payer MEDICARE, MEDICAID ==
[2019-06-17 12:33] LABS: #Basophils 0.1 thou/uL (0.0-0.2); #Eosinphils 0.1 thou/uL (0.0-0.7); #Lymphocytes 1.1 thou/uL (1.20-3.40); #Monocytes 0.5 thou/uL (0.11-0.59); #Neutrophils 3.1 thou/uL (1.40-6.50); %Basophils 1.6 % (0.0-1.0); %Eosinophils 1.7 % (0.0-10.0); %Lymphocytes 22.9 % (21.0-51.0); %Monocytes 10.7 % (0.0-10.0); Hemoglobin 14.1 g/dL (14.0-18.0); Mean Corpuscular HGB CONC 32.6 g/dL (32.0-36.0); Mean Corpuscular Hemoglobin 31.4 pg (27.0-31.0); Mean Corpuscular Volume 96.4 fL (78.0-98.0); Mean Platelet Volume 9.6 fL (7.4-10.4); Platelet Count 168 thou/uL (130-400); RBC Distribution Width 12.4 % (11.5-14.5); Red Blood Cell (RBC) Count 4.47 mill/uL (4.70-6.10); White Blood Cell (WBC) Count 4.9 thou/uL (4.8-10.8)
--- NOTE | 2019-06-17 12:51 | RAD ---
Chest AP view INDICATION: Chest pain COMPARISON: April 27, 2019 FINDINGS: Lungs:Stable bibasilar scarring. Cardiac silhouette:The cardiomediastinal silhouette appears within normal limits. Pulmonary vasculature:Normal Pleural spaces:No pleural effusion or pneumothorax is demonstrated. Upper abdomen:No abnormality seen. Osseous structures: Osteonecrosis of both humeral heads is stable. There is scattered degenerative an d osteoarthritic change present. Additional findings:Stable AICD. IMPRESSION: No acute cardiopulmonary abnormality.
[2019-06-17 13:12] LABS: ALT (SGPT) 27 U/L (8-55); AST (SGOT) 35 U/L (5-34); Alkaline Phosphatase 75 U/L (40-110); Anion Gap 14 mmol/L (10-20); BUN (Urea Nitrogen) 11 mg/dL (8.4-25.7); Bilirubin, Total 0.7 mg/dL (0.2-1.2); Calc. Creatinine Clearance 0 mL/min (70-130); Calcium 8.7 mg/dL (7.8-10.44); Carbon Dioxide 27 mmol/L (23-31); Chloride 105 mmol/L (98-107); Estimated GFR-MDRD 62; Globulin 3.2 g/dL (2.4-3.5); Glucose 105 mg/dL (80-115); Lipase 21 U/L (8-78); Potassium 3.7 mmol/L (3.5-5.1); Protein, Total 7.2 g/dL (5.8-8.1); Sodium 142 mmol/L (136-145)
[2019-06-17] MEDS ORDERED: Furosemide 20 MG/2 ML VIAL ONE (15:48)
== END 2019-06-17 16:33 | disposition home or self-care (01) ==
LOC: ERS 11:50
DX: I11.0 Hypertensive heart disease with heart failure (principal); I50.9 Heart failure, unspecified; E78.5 Hyperlipidemia, unspecified; E78.00 Pure hypercholesterolemia, unspecified; J44.9 Chronic obstructive pulmonary disease, unspecified; F41.9 Anxiety disorder, unspecified; F17.210 Nicotine dependence, cigarettes, uncomplicated; Z79.899 Other long term (current) drug therapy; Z79.51 Long term (current) use of inhaled steroids; Z79.82 Long term (current) use of aspirin
CPT/HCPCS: 36415; 71045; 80053; 83690; 83880; 84484; 85025; 93005; 96374; J1940

== ENCOUNTER 2019-07-29 11:43 | Inpatient (IN) | payer MEDICARE, MEDICAID ==
[2019-07-29 12:34] LABS: Hemoglobin 13.2 g/dL (14.0-18.0); Mean Corpuscular HGB CONC 33.3 g/dL (32.0-36.0); Mean Corpuscular Hemoglobin 31.5 pg (27.0-31.0); Mean Corpuscular Volume 94.6 fL (78.0-98.0); Mean Platelet Volume 10.3 fL (7.4-10.4); Platelet Count 122 thou/uL (130-400); RBC Distribution Width 11.9 % (11.5-14.5); Red Blood Cell (RBC) Count 4.21 mill/uL (4.70-6.10); White Blood Cell (WBC) Count 3.5 thou/uL (4.8-10.8)
[2019-07-29] MEDS ORDERED: predniSONE 20 MG TAB ONE (12:51)
[2019-07-29 12:54] LABS: ALT (SGPT) 26 U/L (8-55); AST (SGOT) 39 U/L (5-34); Albumin 3.8 g/dL (3.4-4.8); Alkaline Phosphatase 67 U/L (40-110); Anion Gap 10 mmol/L (10-20); BUN (Urea Nitrogen) 12 mg/dL (8.4-25.7); Band 2 % (5-11); Bilirubin, Total 1.6 mg/dL (0.2-1.2); Calc. Creatinine Clearance 0 mL/min (70-130); Calcium 8.4 mg/dL (7.8-10.44); Carbon Dioxide 27 mmol/L (23-31); Chloride 104 mmol/L (98-107); Estimated GFR-MDRD 58; Globulin 2.7 g/dL (2.4-3.5); Glucose 99 mg/dL (80-115); Large Platelets SLIGHT; Lymphocytes 9 % (21-51); MDiff Complete? YES; Monocytes 17 % (0-10); Neutrophil 58 % (42-75); Platelet Morphology Comment Appears Decreased; Potassium 3.2 mmol/L (3.5-5.1); Protein, Total 6.5 g/dL (5.8-8.1); RBC Morphology Normal; Reactive Lymphocytes 12 % (0-10); Sodium 138 mmol/L (136-145)
--- NOTE | 2019-07-29 13:02 | RAD ---
PORTABLE CHEST 1 VIEW: DATE: 07/29/2019. TIME: 12:21 PM. HISTORY: Cough. FINDINGS: Comparison is made with the exam of 06/17/2019. Left side AICD remains in place. The heart size is stable. The aorta is tortuous. The lungs are ex panded with stable chronic changes. No focal areas of consolidation, pneumothoraces, or pleural effu sions are seen. There is no evidence of emily pulmonary edema. IMPRESSION: No acute process. POS: TPC
[2019-07-29] MEDS ORDERED: Albuterol Sulfate 2.5 mg/3 ml Neb ONE ×2 (13:25)
[2019-07-29] MEDS ORDERED: Albuterol Sulfate 2.5 mg/0.5 ml Neb ONE (13:25)
[2019-07-29] MEDS ORDERED: Furosemide 100 MG/10 ML VIAL ONE (13:32)
[2019-07-29] MEDS ORDERED: Ketorolac Tromethamine 30 MG/ML VIAL ONE (13:32)
[2019-07-29] MEDS ORDERED: Potassium Chloride 20 MEQ TAB ONE (13:32)
[2019-07-29] MEDS ORDERED: cefTRIAXone\\ROCEPHIN 2 GM VIAL ONE (13:32)
[2019-07-29] MEDS ORDERED: Sodium Chloride 0.9% 100 ML ONE (13:32)
--- NOTE | 2019-07-29 15:18 | PDOC.HHP ---
Hospitalist HPI - History of Present Illness shortness of breath, coughing for the past 3 days History of Present Illness: 69yo M w/ MHx of COPD and CHFrEF (15-20%, AICD in place) presents to the hospital with shortness of breath and cough for the past week. Started having dry cough about a week ago, and three days ago started producing sputum and becoming progressively short of breath. Endorses taking all medications but has history of nonadherence and based on external records, didn't have enough refills to renew all medications. ED Course: In the ED, was supplemented with oxygen, received respiratory treatments, prednisone and was started on azithromycin. Hospitalist ROS - Review of Systems Constitutional: denies: fever, chills, sweats, weakness, malaise, other Eyes: denies: pain, vision change, conjunctivae inflammation, eyelid inflammation, redness, other ENT: denies: ear pain, ear discharge, nose pain, nose discharge, nose congestion , mouth pain, mouth swelling, throat pain, throat swelling, other Respiratory: reports: cough, shortness of breath, sputum. denies: dry, hemoptysis, SOB with excertion, pleuritic pain, wheezing, other Cardiovascular: denies: chest pain, palpitations, orthopnea, paroxysmal noc. dyspnea, edema, light headedness, other Gastrointestinal: denies: nausea, vomiting, abdominal pain, diarrhea, constipation, melena, hematochezia, other Genitourinary: denies: dysuria, frequency, incontinence, hematuria, retention, other Musculoskeletal: denies: neck pain, shoulder pain, arm pain, back pain, hand pain, leg pain, foot pain, other Neurological: denies: weakness, numbness, incoordination, change in speech, confusion, seizures, other All other systems reviewed; all pertinent +/- noted in HPI/Subj Hospitalist History - Past Medical History Cardiac: reports: AFIB, CHF, Syncope Pulmonary: reports: COPD [employer]: denies: no pertinent history, Carpal Tunnel Syndrome, CVA, Dementia, Migraine, Peripheral neuropathy, Seizure, TIA, Vertigo, Other Gastrointestinal: reports: GERD. denies: no pertinent history, Constipation, Diverticulosis, GI bleed, Gastritis, Hemorrhoids, Inflam bowel disease, Irritable bowel disease, Peptic ulcer disease, Other Heme/Onc: reports: Iron deficiency anemia. denies: no pertinent history, Anemia NOS, B12 deficiency, Cancer, Hemochromatosis, Sickle cell disease, Sickle cell trait, Other Hepatobiliary: denies: no pertinent history, Cirrhosis, Cholelithiasis, Hep A/B/ C, Other Psych: reports: Addictions. denies: no pertinent history, Anxiety, Bipolar, Depression, Panic, Psychosis, Schizophrenia, Other Renal/: reports: Acute renal failure - Past Surgical History Past Surgical History: reports: Other Other Surgical History: AICD placement - Family History Family History: reports: hypertension - Social History Smoking Status: Former smoker Tobacco Type: cigarettes Alcohol: reports: Rare Drugs: reports: marijuana Living Situation: Alone Domestic Violence: Negative - Exam General Appearance: NAD, awake alert ENT: normocephalic atraumatic, no oropharyngeal lesions, moist mucosa Neck: supple, symmetric, no JVD Heart: RRR, no murmur, no gallops, no rubs, normal peripheral pulses Heart - other findings: left upper thorax scar where AICD placed; no signs of infection Respiratory: no wheezes, no tachypnea Respiratory - other findings: reduced breath sounds throughout; minimal right lower field inspiratory ral Gastrointestinal: soft, non-tender, non-distended, normal bowel sounds, no palpable masses, no hepatomegaly, no splenomegaly, no bruit Extremities: no cyanosis, no clubbing, no edema Musculoskeletal: normal tone, normal strength, no muscle wasting Hospitalist Results - Labs Result Diagrams: 07/29/19 12:24 07/29/19 12:24 Lab results: WBC 3.5 thou/uL (4.8-10.8) L 07/29/19 12:24 Hgb 13.2 g/dL (14.0-18.0) L 07/29/19 12:24 Hct 39.8 % (42.0-52.0) L 07/29/19 12:24 MCV 94.6 fL (78.0-98.0) 07/29/19 12:24 Plt Count 122 thou/uL (130-400) L 07/29/19 12:24 Band Neuts % (Manual) 2 % (5-11) L 07/29/19 12:24 Sodium 138 mmol/L (136-145) 07/29/19 12:24 Potassium 3.2 mmol/L (3.5-5.1) L 07/29/19 12:24 Chloride 104 mmol/L (98-107) 07/29/19 12:24 Carbon Dioxide 27 mmol/L (23-31) 07/29/19 12:24 BUN 12 mg/dL (8.4-25.7) 07/29/19 12:24 Creatinine 1.47 mg/dL (0.7-1.3) H 07/29/19 12:24 Glucose 99 mg/dL (80-115) 07/29/19 12:24 Calcium 8.4 mg/dL (7.8-10.44) 07/29/19 12:24 Total Bilirubin 1.6 mg/dL (0.2-1.2) H 07/29/19 12:24 AST 39 U/L (5-34) H 07/29/19 12:24 ALT 26 U/L (8-55) 07/29/19 12:24 Alkaline Phosphatase 67 U/L (40-110) 07/29/19 12:24 Troponin I 0.021 ng/mL (< 0.028) 07/29/19 12:24 B-Natriuretic Peptide 1232.5 pg/mL (0-100) H 07/29/19 12:24 Serum Total Protein 6.5 g/dL (5.8-8.1) 07/29/19 12:24 Albumin 3.8 g/dL (3.4-4.8) 07/29/19 12:24 - Radiology Interpretation Chest x-ray Status: image reviewed by la Hospitalist H&P A/P - Problem (1) COPD exacerbation Code(s): J44.1 - CHRONIC OBSTRUCTIVE PULMONARY DISEASE W (ACUTE) EXACERBATION Status: Acute Assessment and Plan: likely due to viral pneumonia or medication nonadherence improved after treatment in the ED -continue prednisone, azithromycin, respiratory treatments (2) Heart failure with reduced ejection fraction, NYHA class IV Code(s): I50.20 - UNSPECIFIED SYSTOLIC (CONGESTIVE) HEART FAILURE Status: Acute Assessment and Plan: EF 15-20 (10/2019) but euvolemic on exam -previously on midodrine and lasix but held due to low blood pressure and orthostatic hypotension -increased BNP likely due to sacubitril and cannot be used to guide therapy -continue home meds -follow I/O -monitor for signs and symptoms of decompensation (3) Orthostatic hypotension Code(s): I95.1 - ORTHOSTATIC HYPOTENSION Status: Acute Assessment and Plan: patient recently taken off midodrine after orthostatic hypotension resolved -will assess patient's orthostats prior to discharge
[2019-07-29 15:42] VITALS: BMI 24.3
[2019-07-29] MEDS ORDERED: Azithromycin 500 MG VIAL ONE (15:52)
[2019-07-29] MEDS: predniSONE 20 MG TAB PO SCH ×2 (16:24→16:52)
[2019-07-29 17:37] LABS: #Lymphocytes 0.2 thou/uL (1.20-3.40); #Monocytes 0.1 thou/uL (0.11-0.59); #Neutrophils 2.7 thou/uL (1.40-6.50); %Basophils 1.3 % (0.0-1.0); %Eosinophils 0.2 % (0.0-10.0); %Lymphocytes 5.5 % (21.0-51.0); %Monocytes 4.5 % (0.0-10.0); %Neutrophils 88.6 % (42.0-75.0); Hemoglobin 13.3 g/dL (14.0-18.0); Mean Corpuscular HGB CONC 32.8 g/dL (32.0-36.0); Mean Corpuscular Hemoglobin 31.1 pg (27.0-31.0); Mean Platelet Volume 10.4 fL (7.4-10.4); Platelet Count 119 thou/uL (130-400); RBC Distribution Width 11.8 % (11.5-14.5); Red Blood Cell (RBC) Count 4.27 mill/uL (4.70-6.10); White Blood Cell (WBC) Count 3.1 thou/uL (4.8-10.8)
[2019-07-29 17:50] LABS: Anion Gap 16 mmol/L (10-20); BUN (Urea Nitrogen) 12 mg/dL (8.4-25.7); Calc. Creatinine Clearance 51 mL/min (70-130); Calcium 8.4 mg/dL (7.8-10.44); Carbon Dioxide 21 mmol/L (23-31); Chloride 103 mmol/L (98-107); Estimated GFR-MDRD 51; Glucose 193 mg/dL (80-115); Sodium 137 mmol/L (136-145)
[2019-07-29 17:54] LABS: Potassium 2.9 mmol/L (3.5-5.1)
[2019-07-29] MEDS ORDERED: Potassium Chloride 20 MEQ TAB PO SCH (18:15)
[2019-07-29] MEDS: Ipratropium Bromide 2.5 ml Neb NEB SCH (19:20)
[2019-07-29 20:31] LABS: Amphetamine Not Detected (NotDetected); Barbiturates Screen Not Detected (NotDetected); Benzodiazepine Screen Not Detected (NotDetected); Cocaine Metabolite Screen Not Detected (NotDetected); Medtox Control Line Valid? VALID (VALID); Medtox Reader # READER 4; Methadone Not Detected (NotDetected); Methamphetamine Not Detected (NotDetected); Opiate Screen Not Detected (NotDetected); Oxycodone Screen Not Detected (NotDetected); Phencyclidine (PCP) Not Detected (NotDetected); THC/Cannabinoid Screen Detected (NotDetected); Tricyclic Screen Not Detected (NotDetected)
[2019-07-29] MEDS: Zolpidem Tartrate 5 MG TAB PO SCH (20:43)
[2019-07-29] MEDS: Heparin 5,000 UNITS/ML VIAL SC SCH (20:43)
[2019-07-29] MEDS: Acetaminophen 325 MG TAB PO PRN (22:12)
[2019-07-30] MEDS: Ipratropium Bromide 2.5 ml Neb NEB SCH ×4 (00:36→18:23)
[2019-07-30] MEDS ORDERED: Potassium Chloride 20 MEQ TAB PO SCH (02:00)
[2019-07-30 06:40] LABS: Anion Gap 15 mmol/L (10-20); BUN (Urea Nitrogen) 16 mg/dL (8.4-25.7); Calc. Creatinine Clearance 54 mL/min (70-130); Calcium 8.5 mg/dL (7.8-10.44); Carbon Dioxide 21 mmol/L (23-31); Chloride 105 mmol/L (98-107); Estimated GFR-MDRD 55; Glucose 110 mg/dL (80-115); Magnesium 1.9 mg/dL (1.6-2.6); Potassium 4.7 mmol/L (3.5-5.1); Sodium 136 mmol/L (136-145)
[2019-07-30] MEDS: Amiodarone 200 MG TAB PO SCH (08:48)
[2019-07-30] MEDS: Heparin 5,000 UNITS/ML VIAL SC SCH ×2 (08:48→20:16)
[2019-07-30] MEDS: Aspirin 325 MG TAB PO SCH (08:48)
[2019-07-30] MEDS: Tamsulosin HCl 0.4 MG CAP PO SCH (08:48)
[2019-07-30] MEDS: Azithromycin 250 MG TAB PO SCH (08:48)
[2019-07-30] MEDS: Ferrous Sulfate 325 MG TAB PO SCH (08:48)
--- NOTE | 2019-07-30 10:08 | PDOC.HOSPP ---
- Subjective Encounter Date: 07/30/19 Encounter Time: 07:00 Subjective: No overnight events. This morning, feels better overall and is breathing well on room air. However, endorses dyspnea on ambulation that is worse than baseline. - Objective Vital Signs & Weight: Vital Signs (12 hours) Temp Pulse Resp BP Pulse Ox 07/30/19 07:21 84 15 100 07/30/19 03:52 98.3 F 81 18 115/76 96 07/30/19 00:36 82 16 100 07/30/19 00:16 97.6 F 70 18 111/79 97 Weight Weight 184 lb 1 oz I&O: 07/29/19 07/30/19 07/31/19 06:59 06:59 06:59 Intake Total 490 Output Total 325 Balance 165 Result Diagrams: 07/29/19 17:19 07/30/19 06:10 Hospitalist ROS - Review of Systems Constitutional: denies: fever, chills, sweats, weakness, malaise, other Respiratory: reports: cough, dry, SOB with excertion Cardiovascular: denies: chest pain, palpitations, orthopnea, paroxysmal noc. dyspnea, edema, light headedness, other Gastrointestinal: denies: nausea, vomiting, abdominal pain, diarrhea, constipation, melena, hematochezia, other Genitourinary: denies: dysuria, frequency, incontinence, hematuria, retention, other Neurological: denies: weakness, numbness, incoordination, change in speech, confusion, seizures, other - Medication Medications: Active Medications Generic Name Dose Route Start Last Admin Trade Name Freq PRN Reason Stop Dose Admin Acetaminophen 650 mg 07/29/19 21:42 07/29/19 22:12 Tylenol PO 650 mg Q4H PRN Administration Pain Amiodarone HCl 100 mg 07/30/19 09:00 07/30/19 08:48 Cordarone PO 100 mg DAILY MOOK Administration Aspirin 325 mg 07/30/19 09:00 07/30/19 08:48 Aspirin PO 325 mg DAILY MOOK Administration Azithromycin 500 mg 07/30/19 09:00 07/30/19 08:48 Zithromax PO 500 mg DAILY MOOK Administration Ferrous Sulfate 325 mg 07/30/19 09:00 07/30/19 08:48 Feosol PO 325 mg DAILY MOOK Administration Heparin Sodium (Porcine) 5,000 units 07/29/19 21:00 07/30/19 08:48 Heparin SC Not Given BID [facility] Ipratropium [place] 2.5 ml 07/29/19 19:00 07/30/19 07:21 Atrovent NEB 2.5 ml [id number] MOOK Administration Pantoprazole Sodium 40 mg 07/30/19 09:00 07/30/19 08:48 Protonix PO 40 mg DAILY MOOK Administration Sacubitril/Valsartan 1 tab 07/29/19 21:00 07/30/19 08:57 Entresto 24 Mg-26 Mg Tablet PO Not Given BID MOOK Tamsulosin HCl 0.4 mg 07/30/19 09:00 07/30/19 08:48 Flomax PO 0.4 mg DAILY MOOK Administration Zolpidem Tartrate 5 mg 07/29/19 21:00 07/29/19 20:43 Ambien PO 5 mg HS MOOK Administration - Exam General Appearance: NAD, awake alert Heart: RRR, no murmur, no gallops, no rubs, normal peripheral pulses Respiratory: normal chest expansion, no tachypnea, rales, wheezes Gastrointestinal: soft, non-tender, non-distended, normal bowel sounds, no palpable masses, no hepatomegaly, no splenomegaly, no bruit Hosp A/P (1) COPD exacerbation Code(s): J44.1 - CHRONIC OBSTRUCTIVE PULMONARY DISEASE W (ACUTE) EXACERBATION Status: Acute Plan: patient improving; breathing and saturating well on RA -on ambulation, shortness of breath worse than baseline continue azithro, prednisone (d2); continue breathing treatments (2) Heart failure with reduced ejection fraction, NYHA class IV Code(s): I50.20 - UNSPECIFIED SYSTOLIC (CONGESTIVE) HEART FAILURE Status: Chronic Plan: euvolemic; no signs or symptoms of decompensation continue home medications (3) Orthostatic hypotension Code(s): I95.1 - ORTHOSTATIC HYPOTENSION Status: Acute Plan: patient not endorsing lightheadedness on ambulation -will continue to monitor
[2019-07-30] MEDS ORDERED: Furosemide 20 MG TAB PO SCH (15:00)
[2019-07-30] MEDS: Zolpidem Tartrate 5 MG TAB PO SCH (20:25)
[2019-07-31] MEDS: Ipratropium Bromide 2.5 ml Neb NEB SCH ×3 (00:34→12:23)
[2019-07-31] MEDS: Acetaminophen 325 MG TAB PO PRN (04:38)
[2019-07-31] MEDS: Azithromycin 250 MG TAB PO SCH (09:42)
[2019-07-31] MEDS: Amiodarone 200 MG TAB PO SCH (09:43)
[2019-07-31] MEDS: Tamsulosin HCl 0.4 MG CAP PO SCH (09:43)
[2019-07-31] MEDS: Aspirin 325 MG TAB PO SCH (09:43)
[2019-07-31] MEDS: Heparin 5,000 UNITS/ML VIAL SC SCH (09:43)
[2019-07-31] MEDS: Ferrous Sulfate 325 MG TAB PO SCH (09:44)
[2019-07-31 13:56] VITALS: BP 120/65; TEMP 98.5
--- NOTE | 2019-08-01 10:43 | DIS ---
DATE OF ADMISSION: 07/29/2019 DATE OF DISCHARGE: 07/31/2019 HOSPITAL COURSE: Mr. Sandhu is a 69-year-old male with a history of COPD and medications, who presented with shortness of breath and cough for the past week. He started having a dry cough about a week ago when 3 days prior to presentation started producing sputum and becoming progressively short of breath and thus taking all medications, but has history of nonadherence and based on external records, did not have enough refills to renew all medications. In the ED, he was commenced with oxygen, received respiratory treatments, and treatment for COPD exacerbation was started with prednisone and azithromycin. During the following couple of days, the patient improved. He was hemodynamically stable, breathing, and saturating well on room air. Prior to discharge, he was breathing and saturating well while ambulating and did not require supplementary oxygen. PHYSICAL EXAMINATION: VITAL SIGNS: Unremarkable. GENERAL APPEARANCE: In no apparent distress. Awake and alert. HEART: Regular rate and rhythm. No murmurs. No gallop. No rubs. No peripheral edema. RESPIRATORY: No wheezing or tachypnea. There were reduced breath sounds throughout with minimal right lower filed inspiratory rales. GI: Soft, nontender, nondistended. Normal bowel sounds. EXTREMITIES: There was no cyanosis or clubbing. MUSCULOSKELETAL: Normal tone. Normal strength. No muscle wasting. IMPRESSION AND PLAN: This is a 69-year-old male, who presents with chronic obstructive pulmonary disease exacerbation. 1. Chronic obstructive pulmonary disease exacerbation likely due to viral pneumonia medications nonadherence, was treated with azithromycin and prednisone and improved after the second hospital day, was discharged, hemodynamically stable, breathing and saturating well during the ambulation. Plan; continue prednisone and azithromycin for 4 more days. The patient extensively educated regarding his respiratory treatment as well as medication adherence. The patient's family also communicated regarding importance of adherence and followup appointments with primary care physician and log buncher. 1. Heart failure with reduced ejection fraction, NYHA class IV. Based on echo from October of 2018, his ejection fraction was about 15% to 20%. However, the patient was euvolemic throughout hospital stay. Previously, on midodrine and Lasix, but held it due to low blood pressure and orthostatic hypotension. On presentation, had increased BNP, but likely due to sacubitril, BNP during treatment with sacubitril cannot guide treatment. During this inpatient stay, the patient did not show signs of hypervolemia and did not require Lasix treatment. The plan was the patient was educated regarding treatment with Lasix only when had signs of hypervolemia. The patient was scheduled for followup appointment with his log buncher. 1. Orthostatic hypotension. The patient was recently taken off midodrine after orthostatic hypotension resolved. During hospital stay, the patient did not exhibit any signs of orthostatic hypotension, lightheadedness, or presyncope. The plan is to continue current medications with p.r.n. Lasix, which the patient and his log buncher will decide whether to continue or discontinue. Job ID: [id number]
== END 2019-07-31 13:49 | disposition home health service (06) | DRG 190 ==
LOC: ERS 11:43 → T4-B 15:35
PROVIDERS: ADMIT Internal Medicine; ATTEND Internal Medicine
DX: J44.1 Chronic obstructive pulmonary disease with (acute) exacerbation (principal); J12.9 Viral pneumonia, unspecified; I50.22 Chronic systolic (congestive) heart failure; I11.0 Hypertensive heart disease with heart failure; J44.0 Chronic obstructive pulmonary disease with (acute) lower respiratory infection; Z95.810 Presence of automatic (implantable) cardiac defibrillator; I48.91 Unspecified atrial fibrillation; K21.9 Gastro-esophageal reflux disease without esophagitis; Z87.891 Personal history of nicotine dependence; I95.1 Orthostatic hypotension; Z91.14 Patient's other noncompliance with medication regimen
CPT/HCPCS: 36415; 71045; 80048; 80053; 80306; 83735; 83880; 84484; 85025; 93005; 94640; 94644; 94660; 96365; 96375; J0456; J0696; J1644; J1885; J1940; J3490; J7512; J7611; J7620

== ENCOUNTER 2019-07-31 23:42 | Observation (INO) | payer MEDICARE, MEDICAID ==
[2019-07-31] MEDS ORDERED: Albuterol Sulfate 2.5 mg/0.5 ml Neb ONE (23:53)
[2019-07-31] MEDS ORDERED: Albuterol Sulfate 2.5 mg/3 ml Neb ONE (23:53)
[2019-08-01 00:28] LABS: #Lymphocytes 1.2 thou/uL (1.20-3.40); #Monocytes 0.5 thou/uL (0.11-0.59); #Neutrophils 2.1 thou/uL (1.40-6.50); %Basophils 0.5 % (0.0-1.0); %Eosinophils 0.9 % (0.0-10.0); %Lymphocytes 31.8 % (21.0-51.0); %Monocytes 13.2 % (0.0-10.0); %Neutrophils 53.6 % (42.0-75.0); Hemoglobin 13.6 g/dL (14.0-18.0); Mean Corpuscular HGB CONC 32.7 g/dL (32.0-36.0); Mean Corpuscular Hemoglobin 31.9 pg (27.0-31.0); Mean Corpuscular Volume 97.4 fL (78.0-98.0); Mean Platelet Volume 9.8 fL (7.4-10.4); Platelet Count 117 thou/uL (130-400); RBC Distribution Width 11.9 % (11.5-14.5); Red Blood Cell (RBC) Count 4.27 mill/uL (4.70-6.10); White Blood Cell (WBC) Count 3.9 thou/uL (4.8-10.8)
[2019-08-01 00:50] LABS: ALT (SGPT) 21 U/L (8-55); AST (SGOT) 29 U/L (5-34); Albumin 3.8 g/dL (3.4-4.8); Alkaline Phosphatase 64 U/L (40-110); Anion Gap 13 mmol/L (10-20); BUN (Urea Nitrogen) 16 mg/dL (8.4-25.7); Bilirubin, Total 1.4 mg/dL (0.2-1.2); Calc. Creatinine Clearance 0 mL/min (70-130); Calcium 8.4 mg/dL (7.8-10.44); Carbon Dioxide 25 mmol/L (23-31); Chloride 105 mmol/L (98-107); Estimated GFR-MDRD 53; Glucose 94 mg/dL (80-115); Potassium 3.8 mmol/L (3.5-5.1); Protein, Total 6.8 g/dL (5.8-8.1); Sodium 139 mmol/L (136-145)
[2019-08-01 01:11] LABS: CKMB 2.7 ng/mL (0-6.6)
[2019-08-01] MEDS ORDERED: Furosemide 40 MG/4 ML VIAL ONE (01:20)
[2019-08-01] MEDS ORDERED: Albuterol Sulfate 2.5 mg/3 ml Neb NEB PRN (02:25)
[2019-08-01 02:39] VITALS: BMI 24.0
[2019-08-01] MEDS ORDERED: Acetaminophen 325 MG TAB PO PRN (02:51)
[2019-08-01] MEDS ORDERED: Senokot S 8.6-50 MG TAB PO PRN (02:51)
[2019-08-01] MEDS ORDERED: Zolpidem Tartrate 5 MG TAB PO PRN (02:52)
[2019-08-01 04:25] LABS: #Lymphocytes 0.8 thou/uL (1.20-3.40); #Monocytes 0.5 thou/uL (0.11-0.59); #Neutrophils 2.7 thou/uL (1.40-6.50); %Basophils 0.4 % (0.0-1.0); %Eosinophils 0.8 % (0.0-10.0); %Lymphocytes 20.6 % (21.0-51.0); %Monocytes 11.8 % (0.0-10.0); %Neutrophils 66.5 % (42.0-75.0); Hemoglobin 13.2 g/dL (14.0-18.0); Mean Corpuscular HGB CONC 33.6 g/dL (32.0-36.0); Mean Corpuscular Volume 95.5 fL (78.0-98.0); Mean Platelet Volume 10.2 fL (7.4-10.4); Platelet Count 124 thou/uL (130-400); RBC Distribution Width 11.7 % (11.5-14.5); Red Blood Cell (RBC) Count 4.13 mill/uL (4.70-6.10)
[2019-08-01 04:45] LABS: Anion Gap 14 mmol/L (10-20); BUN (Urea Nitrogen) 15 mg/dL (8.4-25.7); Calc. Creatinine Clearance 55 mL/min (70-130); Calcium 8.3 mg/dL (7.8-10.44); Carbon Dioxide 25 mmol/L (23-31); Chloride 102 mmol/L (98-107); Estimated GFR-MDRD 57; Glucose 96 mg/dL (80-115); Sodium 138 mmol/L (136-145)
[2019-08-01 04:51] LABS: Troponin I 0.017 ng/mL (< 0.028)
--- NOTE | 2019-08-01 05:38 | HP ---
CHIEF COMPLAINT: Shortness of breath. HISTORY OF PRESENT ILLNESS: The patient is a very pleasant 69-year-old male with a history of systolic heart failure, COPD, and hypertension, who presents to the hospital with worsening shortness of breath. The patient was recently discharged from the hospital on 07/31, comes right back into the hospital with complaints of worsening shortness of breath. He denies any chest tightness, any nausea, vomiting, or diarrhea. The patient was seen in the ER and was noted to have a significantly elevated BNP, mildly elevated troponins, and chest x-ray indicated significant amount of pulmonary edema. PAST MEDICAL HISTORY: 1. He has a history of heart failure, systolic. 2. Hyperlipidemia. 3. COPD. 4. Hypertension. 5. Chronic bronchitis and high cholesterolemia. PAST SURGICAL HISTORY: He has had an AICD placed. He has had cyst removed from his hand . SOCIAL HISTORY: He denies any alcohol use. He is a former smoker. Smoked about 2 packs a day. Denies any recreational drug use. He is a full code, lives with his family. ALLERGIES: HE HAS ALLERGIES TO CODEINE, DULOXETINE, MIRTAZAPINE, AND NIACIN. MEDICATIONS: He is on, 1. Lasix 20 mg daily. 2. Pantoprazole 40 mg daily. 3. Aspirin 81 mg daily. 4. Amiodarone 100 mg daily. 5. Entresto 24-26 one p.o. b.i.d. 6. Iron 325 daily. 7. Gabapentin 600 mg b.i.d. 8. Tamsulosin 0.4 twice a day. REVIEW OF SYSTEMS: All negative except for the ones mentioned above in the HPI. PHYSICAL EXAMINATION: VITAL SIGNS: Temperature of 98.6, 99% on 2 L, 93 pulse rate, and blood pressure 119/89. GENERAL: He is awake, alert, and oriented x3. Does not appear in distress. HEENT: Normocephalic and atraumatic. No lymphadenopathy noted. Pupils are equal and reactive to light. CV: S1 and S2 present. No murmurs, rubs, or gallops. LUNGS: He has significant rhonchi heard all over. No wheezing heard. ABDOMEN: Soft and nontender. Bowel sounds are present x2. EXTREMITIES: No edema. Pedal pulses are present x2. NEUROVASCULAR: There are no focal deficits noted. SKIN: No cuts, lesions, or bruises noted. LABORATORY RESULTS: Sodium of 139, potassium of 3.8, BUN of 16, and creatinine of 1.58. His BNP is 2195. His troponin is 0.070. His hematology; WBCs of 4.0, hemoglobin of 13.2, hematocrit of 39.5, and his platelets are 124. He did have a chest x-ray, according to my interpretation appears to have significant pulmonary vascular congestions bilaterally. ASSESSMENT AND PLAN: The patient is a very pleasant 69-year-old male, who presents to the hospital with complaints of shortness of breath. 1. Shortness of breath, most likely secondary to [id number] systolic heart failure. His last echocardiogram was in October of 2018. A repeat echocardiogram at that time. His ejection fraction was 15% to 20%, and he had some mild mitral regurgitation and mild aortic regurgitation. I will start him on some IV diuretics. Also, I will also continue to treat his possible chronic obstructive pulmonary disease exacerbation that he was recently discharged from the hospital with some IV steroids and also DuoNeb. 2. Mildly elevated troponins. Again, I will check an echocardiogram for better evaluation. Currently, the patient does not have any chest pain. He did have some chest pain earlier. 3. Chronic kidney disease, stage 3, stable. Continue to monitor. 4. Hypertension. We will continue home medications. 5. DVT prophylaxis, we will put the patient on SCDs or a subcu Lovenox. Job ID: [id number]
[2019-08-01] MEDS ORDERED: Mometasone/Formoterol 120 PUFF INHALER INH SCH (06:30)
[2019-08-01 07:37] LABS: Troponin I 0.073 ng/mL (< 0.028)
--- NOTE | 2019-08-01 08:30 | RAD ---
CHEST 1 VIEW: Date: 08/01/2019 HISTORY: Shortness of breath. COMPARISON: 07/29/2019. FINDINGS: There is some increased bilateral vascular congestion with some interstitial changes developing in th e infrahilar regions and lung bases becoming somewhat more prominent than the prior study. No new con fluent pneumonia or overt edema. IMPRESSION: Worsening increased markings bilaterally and bilateral vascular congestion. No new confluent pneumoni a. Less inspiratory effort. Continue short-term follow-up. POS: TPC
[2019-08-01] MEDS ORDERED: Furosemide 40 MG/4 ML VIAL SLOW IVP SCH (09:00)
[2019-08-01] MEDS ORDERED: Enoxaparin Sodium 40 MG/0.4 ML SYRINGE SC SCH (09:00)
[2019-08-01] MEDS ORDERED: Ferrous Sulfate 325 MG TAB PO SCH (09:00)
[2019-08-01] MEDS ORDERED: Aspirin 325 MG TAB PO SCH (09:00)
[2019-08-01] MEDS ORDERED: predniSONE 50 MG TAB PO SCH (09:00)
[2019-08-01] MEDS ORDERED: Tamsulosin HCl 0.4 MG CAP PO SCH (09:00)
[2019-08-01] MEDS ORDERED: Potassium Chloride 20 MEQ TAB PO SCH (09:00)
[2019-08-01] MEDS ORDERED: methylPREDNISolone Sod Succ 40 MG VIAL IVP SCH (09:00)
[2019-08-01] MEDS ORDERED: Amiodarone 200 MG TAB PO SCH (09:00)
[2019-08-01 11:58] VITALS: BP 112/77; TEMP 97.5
--- NOTE | 2019-08-02 10:45 | DIS ---
DATE OF ADMISSION: 08/01/2019 DATE OF DISCHARGE: 08/01/2019 DISCHARGE DIAGNOSES: 1. Acute on chronic systolic congestive heart failure. 2. Shortness of breath. 3. Mildly elevated troponins, chronic, not quality audit representative of an acute change. 4. Chronic kidney disease stage 3. 5. Hypertension. HISTORY: The patient is a 69-year-old male, who has just been in the hospital with what appeared to be COPD exacerbation and was discharged home. States he was only there for a few hours when he felt increasing shortness of breath and returned to the hospital where he had an emergency room evaluation, which included a chest x-ray which showed some increased markings consistent with vascular congestion. He had an elevated BNP over 1999. He was felt to have acute on chronic systolic congestive heart failure with a known prior ejection fraction of about 15% to 20%. He was diuresed in the emergency department and was very rapidly feeling substantially better. He was observed through the day, had stable vital signs, felt comfortable getting up and around and had a followup appointment in the [facility] that same afternoon and was felt to be stable for discharge. PHYSICAL EXAMINATION: VITAL SIGNS: At time of discharge, temperature 97.5, pulse 73 to 90, respirations 22, O2 saturation 97% on room air, BP 112/77. GENERAL: He was awake and alert. HEART: Regular. LUNGS: Clear. ABDOMEN: Benign. DISPOSITION: The patient is discharged to home. He is to be on a heart healthy, low-sodium diet. ACTIVITY: As tolerated. He will continue with his usual home medications with no changes. He will follow up with Sid Rae in 7 days. He has an appointment with Lindsey Lenz at the [facility] this afternoon. They can follow up with Dr. Marilu Forbes as well. He can return to the hospital at anytime should he have the need to do so. Job ID: [id number]
== END 2019-08-01 12:21 | disposition home or self-care (01) ==
LOC: ERS 23:42 → 2SW 08-01 02:18
PROVIDERS: ADMIT Internal Medicine; ATTEND Internal Medicine
DX: R06.02 Shortness of breath (principal); I13.0 Hypertensive heart and chronic kidney disease with heart failure and stage 1 through stage 4 chronic kidney disease, or unspecified chronic kidney disease; I50.20 Unspecified systolic (congestive) heart failure; N18.3 Chronic kidney disease, stage 3 (moderate); J42 Unspecified chronic bronchitis; E78.5 Hyperlipidemia, unspecified; E78.00 Pure hypercholesterolemia, unspecified; Z95.810 Presence of automatic (implantable) cardiac defibrillator; Z79.82 Long term (current) use of aspirin; Z79.899 Other long term (current) drug therapy; Z87.891 Personal history of nicotine dependence; Z88.5 Allergy status to narcotic agent; Z88.8 Allergy status to other drugs, medicaments and biological substances
CPT/HCPCS: 71045; 80048; 80053; 82553; 83880; 84484 ×2; 85025 ×2; 93290; 94640 ×3; 96372; 96374; 96375; 96376; 99285; 99406; G0378 ×2; G0463; 36415; 99214; J1650; J1940; J2920; J7611; J7620

== ENCOUNTER 2019-08-30 09:12 | Emergency (ER) | payer MEDICARE, OTHER ==
--- NOTE | 2019-08-30 10:24 | RAD ---
EXAM: Single view of the chest HISTORY: Nausea vomiting and diarrhea COMPARISON: 08/01/2019 FINDINGS: Single view of the chest shows an enlarged but stable cardiomediastinal silhouette. The pa cemaker is unchanged in position. There is atelectasis in the left lung base. There is no evidence of consolidation, mass, or pleural effusion. Hardware seen in the cervical spine. IMPRESSION: Cardiomegaly
[2019-08-30 10:29] LABS: ALT (SGPT) 20 U/L (8-55); AST (SGOT) 29 U/L (5-34); Albumin 4.1 g/dL (3.4-4.8); Alkaline Phosphatase 70 U/L (40-110); Anion Gap 16 mmol/L (10-20); BUN (Urea Nitrogen) 24 mg/dL (8.4-25.7); Bilirubin, Total 1.6 mg/dL (0.2-1.2); Calc. Creatinine Clearance 0 mL/min (70-130); Calcium 9.2 mg/dL (7.8-10.44); Carbon Dioxide 20 mmol/L (23-31); Chloride 106 mmol/L (98-107); Estimated GFR-MDRD 56; Glucose 90 mg/dL (80-115); Lipase 22 U/L (8-78); Potassium 4.4 mmol/L (3.5-5.1); Protein, Total 7.1 g/dL (5.8-8.1); Sodium 138 mmol/L (136-145)
[2019-08-30 10:32] LABS: #Lymphocytes 0.9 thou/uL (1.20-3.40); #Monocytes 0.6 thou/uL (0.11-0.59); #Neutrophils 6.2 thou/uL (1.40-6.50); %Basophils 0.3 % (0.0-1.0); %Eosinophils 0.6 % (0.0-10.0); %Lymphocytes 11.5 % (21.0-51.0); %Monocytes 7.1 % (0.0-10.0); %Neutrophils 80.5 % (42.0-75.0); Hemoglobin 14.8 g/dL (14.0-18.0); Mean Corpuscular HGB CONC 32.7 g/dL (32.0-36.0); Mean Corpuscular Hemoglobin 32.3 pg (27.0-31.0); Mean Platelet Volume 9.9 fL (7.4-10.4); Platelet Count 145 thou/uL (130-400); RBC Distribution Width 12.6 % (11.5-14.5); Red Blood Cell (RBC) Count 4.56 mill/uL (4.70-6.10); White Blood Cell (WBC) Count 7.7 thou/uL (4.8-10.8)
[2019-08-30 11:39] LABS: Clarity Clear (Clear)
[2019-08-30 11:40] LABS: Bilirubin Negative (Negative); Blood, Urine Negative (Negative); Glucose, Urine (Dipstick) Normal (Negative); Leukocyte Negative Leu/uL (Negative); Nitrite Negative (Negative); Protein, Urine (Dipstick) 10 mg/dL (Neg-Trace); Urobilinogen 3 mg/dL (Less than 2)
--- NOTE | 2019-09-03 17:02 | EKG ---
Test Reason : Blood Pressure : / mmHG Vent. Rate : 075 BPM Atrial Rate : 075 BPM P-R Int : 000 ms QRS Dur : 192 ms QT Int : 478 ms P-R-T Axes : 104 151 -45 degrees QTc Int : 533 ms Ventricular-paced rhythm with occasional Premature ventricular complexes Abnormal ECG Confirmed by JESS GENTILE [id number]), editorial clerk TOMY NDIAYE ([id number]) on 09/03/2019 5:01:32 PM Referred By: Confirmed By:JESS GENTILE
== END 2019-08-30 12:36 | disposition home or self-care (01) ==
LOC: ERS 09:12
DX: I47.2 Ventricular tachycardia (principal); J44.9 Chronic obstructive pulmonary disease, unspecified; E78.5 Hyperlipidemia, unspecified; E78.00 Pure hypercholesterolemia, unspecified; F41.9 Anxiety disorder, unspecified; F17.210 Nicotine dependence, cigarettes, uncomplicated; I11.0 Hypertensive heart disease with heart failure; I50.9 Heart failure, unspecified; Z79.899 Other long term (current) drug therapy; Z79.82 Long term (current) use of aspirin; Z79.51 Long term (current) use of inhaled steroids
CPT/HCPCS: 36415; 71045; 80053; 81003; 83690; 84484; 85025; 93005

== ENCOUNTER 2019-10-03 10:01 | Day surgery (SDC) | payer MEDICARE, MEDICAID ==
[2019-09-30 08:30] VITALS: BMI 24.3
[~2019-10-03 10:01] MED LIST changes: +Lidocaine 1% PF 5 ML VIAL ONE; +PROPOFOL 200 MG/20 ML VIAL ONE; -Prevnar 13-Val Conj/PF 0.5 ML SYRINGE IM ONE
--- NOTE | 2019-10-03 12:34 | OP ---
DATE OF PROCEDURE: 10/03/2019 PROCEDURES PERFORMED: 1. Colonoscopy with biopsy. 2. Polypectomy. 3. Submucosal injection. INDICATIONS FOR PROCEDURE: Screening for malignant neoplasm of the colon, positive Cologuard. DESCRIPTION OF PROCEDURE: After the risks and benefits of the procedure were explained to the patient, including risks of bleeding, infection, perforation, reactions to anesthesia, aspiration, and/or pain, informed consent was obtained. The patient was then taken to the endoscopy suite where he was placed in the left lateral decubitus position followed by introduction of deep sedation via propofol and anesthesia support. Once adequate sedation was adequately sedated, a digital rectal examination was performed followed by introduction of the standard colonoscope, which was then advanced to the terminal ileum without difficulty. The quality of the prep was poor with a large amount of retained solid stool seen in the cecum, ascending, transverse, and sigmoid colons, limiting visualization of the colonic mucosa. The patient tolerated the procedure well with no immediate perioperative complications. Upon conclusion of the procedure, all equipment was removed from the patient and he was transferred to Day Stay in satisfactory condition. FINDINGS: Digital rectal exam: Normal findings were seen on external examination. Colon findings: Normal-appearing mucosa was seen within the terminal ileum as well as at the ileocecal valve; however, a large amount of retained solid stool was seen in the cecum, ascending colon, transverse colon, and sigmoid colon, significantly limiting visualization of the colonic mucosa including visualization of the appendiceal orifice. Of the mucosa seen, normal-appearing mucosa was seen within the cecum and the proximal ascending colon; however, a large polypoid mass was seen in the distal ascending colon, measuring approximately 3 to 4 cm in diameter and extending between more than one fold within the colon itself. Given the increased size and situation of this particular polypoid mass, endoscopic resection was unfeasible. Therefore, multiple biopsies were taken of this mass and placed in a specimen jar for further evaluation. Submucosal injection with Grace ink/spot was then performed at both the proximal and distal ends of the polypoid mass for further evaluation/surgical resection. Normal-appearing mucosa was then seen in the transverse colon. Three polyps, measuring 4 to 6 mm in size, were seen in the descending colon and completely removed with hot snare polypectomy. They were retrieved and placed in a specimen jar for evaluation. Two additional polyps, measuring 1 to 2 mm in size, were seen in the descending colon and fulgurated using the tip of the monopolar probe. Again, retained stool was seen within the sigmoid colon, but otherwise normal-appearing mucosa in this region. Normal-appearing mucosa was then seen within the rectum with small internal hemorrhoids seen on rectal retroflexion. IMPRESSION: 1. A 3 to 4 cm ascending colonic mass, concerning for malignancy, status post biopsy and tattoo placement. 2. Three 4 to 6 mm descending colon polyps, status post hot snare polypectomy. 3. Two additional 1 to 2 mm descending colon polyps, status post fulguration with monopolar probe. 4. Small internal hemorrhoids. 5. Retained solid stool seen in the cecum, ascending, transverse, and sigmoid colon, limiting visualization. RECOMMENDATIONS: 1. We will follow up on the biopsy results and the polypectomy results. 2. Given the increased size of the ascending colonic polyp, he will most likely need surgical resection. I will order CT scans of the chest, abdomen, and pelvis today for possible staging for possible colonic malignancy and referral to the colorectal surgeon for possible resection if nonmetastatic. 3. Would hold any anticoagulation for the next 48 hours given the biopsies and polypectomies performed today. 4. Would repeat the colonoscopy in 6 to 12 months to complete visualization of the colonic mucosa for any additional polyps. 5. Would recommend a higher fiber diet given the presence of internal hemorrhoids. Job ID: [id number]
[2019-10-03] MEDS ORDERED: Iopamidol 370 76% 100 ML VIAL ONE (13:37)
--- NOTE | 2019-10-03 14:25 | CT ---
CT OF THE CHEST, ABDOMEN AND PELVIS WITH IV CONTRAST INDICATION: Staging evaluation for colon cancer COMPARISON: CT the abdomen and pelvis dated April 28, 2019 FINDINGS: CHEST: Lungs: There is scattered paraseptal and centrilobular emphysema. There is subsegmental atelectasis i nvolving both lower lobes Pleural space: No effusion. Mediastinum: No pathologically enlarged lymph nodes are evident. Axilla: No pathologically enlarged lymph nodes. ABDOMEN: Liver: No focal lesion. Gallbladder: Cholelithiasis Pancreas: Normal. Adrenal glands: Normal. Spleen: Normal. Kidneys and ureters: Normal. No hydronephrosis. Vasculature: There are mild vascular calcifications seen involving the visualized vasculature. Lymph nodes:No lymphadenopathy. Free fluid in abdomen:No free fluid is evident. PELVIS: Small and large bowel: There is a mild amount retained stool within the sigmoid colon and rectum. Sma ll bowel is of normal caliber Appendix:Normal Bladder: Normal. Rectal and perirectal soft tissues:Normal. Reproductive structures: Prostate is enlarged measuring 6.4 cm Free fluid in pelvis: No free fluid is evident. Lymphadenopathy pelvis: No lymphadenopathy is evident. Osseous structures: There is osteonecrosis of both femoral heads, right greater than left without jabari dence of subchondral collapse. There is dextroscoliosis of the lumbar spine. There is a bone island within the left aspect of L4. No suspicious osteolytic or osteoblastic lesion is identified. There is healed rib deformities involving the posterior left 10th and 11th ribs. There is scattered degenerative and osteoarthritic changes. Soft tissues:Normal. IMPRESSION: 1. No CT evidence of metastatic disease in the chest, abdomen or pelvis. 2. Moderate emphysema 3. Cholelithiasis. 4. Prostate enlargement. 5. Osteonecrosis of both femoral heads without evidence of subchondral collapse
== END 2019-10-03 14:52 | disposition home or self-care (01) ==
LOC: SDC 10:01
PROVIDERS: ATTEND Internal Medicine
PROC: 0DBK8ZX Excision of Ascending Colon, Via Natural or Artificial Opening Endoscopic, Diagnostic (ICD-10-PCS; principal; 2019-10-03)
PROC: 0DBM8ZX Excision of Descending Colon, Via Natural or Artificial Opening Endoscopic, Diagnostic (ICD-10-PCS; 2019-10-03)
PROC: 0D5M8ZZ Destruction of Descending Colon, Via Natural or Artificial Opening Endoscopic (ICD-10-PCS; 2019-10-03)
PROC: 3E0H8GC Introduction of Other Therapeutic Substance into Lower GI, Via Natural or Artificial Opening Endoscopic (ICD-10-PCS; 2019-10-03)
DX: D12.2 Benign neoplasm of ascending colon (principal); D12.4 Benign neoplasm of descending colon; K64.8 Other hemorrhoids; K59.09 Other constipation; F41.9 Anxiety disorder, unspecified; J45.909 Unspecified asthma, uncomplicated; N40.0 Benign prostatic hyperplasia without lower urinary tract symptoms; I13.0 Hypertensive heart and chronic kidney disease with heart failure and stage 1 through stage 4 chronic kidney disease, or unspecified chronic kidney disease; N18.9 Chronic kidney disease, unspecified; I50.9 Heart failure, unspecified; I25.2 Old myocardial infarction; K21.9 Gastro-esophageal reflux disease without esophagitis; E78.00 Pure hypercholesterolemia, unspecified; Z86.73 Personal history of transient ischemic attack (TIA), and cerebral infarction without residual deficits; Z87.891 Personal history of nicotine dependence; Z79.82 Long term (current) use of aspirin; Z79.899 Other long term (current) drug therapy; Z88.5 Allergy status to narcotic agent; Z88.8 Allergy status to other drugs, medicaments and biological substances
CPT/HCPCS: 36415; 71260; 74177; 82565; 88305; J2001; J2704; Q9967

== ENCOUNTER 2019-10-05 15:56 | Emergency (ER) | payer MEDICARE, MEDICAID ==
[2019-10-05 17:10] LABS: Bilirubin Negative (Negative); Blood, Urine 1+ (Negative); Clarity Clear (Clear); Glucose, Urine (Dipstick) Normal (Negative); Leukocyte 25 Leu/uL (Negative); Nitrite Negative (Negative); Protein, Urine (Dipstick) 10 mg/dL (Neg-Trace); RBC/HPF 0-3 HPF (0-3); Squamous Epithelial None Seen HPF (0-3)
[2019-10-05 17:28] LABS: #Eosinphils 0.1 thou/uL (0.0-0.7); #Lymphocytes 1.2 thou/uL (1.20-3.40); #Monocytes 0.4 thou/uL (0.11-0.59); #Neutrophils 2.7 thou/uL (1.40-6.50); %Basophils 0.7 % (0.0-1.0); %Eosinophils 1.3 % (0.0-10.0); %Lymphocytes 27.3 % (21.0-51.0); %Monocytes 8.6 % (0.0-10.0); %Neutrophils 62.1 % (42.0-75.0); Hemoglobin 13.4 g/dL (14.0-18.0); Mean Corpuscular HGB CONC 33.5 g/dL (32.0-36.0); Mean Corpuscular Hemoglobin 32.4 pg (27.0-31.0); Mean Corpuscular Volume 96.8 fL (78.0-98.0); Mean Platelet Volume 9.9 fL (7.4-10.4); Platelet Count 148 thou/uL (130-400); Red Blood Cell (RBC) Count 4.14 mill/uL (4.70-6.10); White Blood Cell (WBC) Count 4.3 thou/uL (4.8-10.8)
[2019-10-05 17:41] LABS: Bacteria/HPF Rare-Few HPF (None Seen); Sperm/HPF 3+ HPF (None Seen)
[2019-10-05 17:48] LABS: ALT (SGPT) 22 U/L (8-55); AST (SGOT) 27 U/L (5-34); Albumin 3.8 g/dL (3.4-4.8); Alkaline Phosphatase 58 U/L (40-110); Anion Gap 14 mmol/L (10-20); BUN (Urea Nitrogen) 13 mg/dL (8.4-25.7); Bilirubin, Total 1.1 mg/dL (0.2-1.2); Calc. Creatinine Clearance 0 mL/min (70-130); Calcium 8.8 mg/dL (7.8-10.44); Carbon Dioxide 23 mmol/L (23-31); Chloride 104 mmol/L (98-107); Estimated GFR-MDRD 49; Globulin 2.8 g/dL (2.4-3.5); Glucose 153 mg/dL (80-115); Protein, Total 6.6 g/dL (5.8-8.1); Sodium 138 mmol/L (136-145)
== END 2019-10-05 19:46 | disposition home or self-care (01) ==
LOC: ERS 15:56
DX: K62.5 Hemorrhage of anus and rectum (principal); E78.5 Hyperlipidemia, unspecified; E78.00 Pure hypercholesterolemia, unspecified; I10 Essential (primary) hypertension; J44.9 Chronic obstructive pulmonary disease, unspecified; F17.210 Nicotine dependence, cigarettes, uncomplicated; F41.9 Anxiety disorder, unspecified
CPT/HCPCS: 36415; 80053; 81003; 81015; 82274; 85025; 86850; 86900; 86901; 99283

== ENCOUNTER 2019-11-12 00:18 | Emergency (ER) | payer MEDICARE, OTHER ==
[2019-11-12] MEDS ORDERED: Ondansetron PF 4 MG/2 ML Vial ONE ×2 (00:35→01:47)
[2019-11-12 00:50] LABS: #Lymphocytes 0.9 thou/uL (1.20-3.40); #Monocytes 0.8 thou/uL (0.11-0.59); #Neutrophils 7.4 thou/uL (1.40-6.50); %Basophils 0.3 % (0.0-1.0); %Eosinophils 0.4 % (0.0-10.0); %Lymphocytes 9.4 % (21.0-51.0); %Monocytes 8.9 % (0.0-10.0); %Neutrophils 80.9 % (42.0-75.0); Hemoglobin 15.6 g/dL (14.0-18.0); Mean Corpuscular HGB CONC 33.3 g/dL (32.0-36.0); Mean Corpuscular Hemoglobin 31.7 pg (27.0-31.0); Mean Corpuscular Volume 95.2 fL (78.0-98.0); Mean Platelet Volume 9.1 fL (7.4-10.4); Platelet Count 184 thou/uL (130-400); RBC Distribution Width 11.4 % (11.5-14.5); Red Blood Cell (RBC) Count 4.92 mill/uL (4.70-6.10); White Blood Cell (WBC) Count 9.1 thou/uL (4.8-10.8)
[2019-11-12 01:12] LABS: ALT (SGPT) 16 U/L (8-55); AST (SGOT) 22 U/L (5-34); Albumin 4.2 g/dL (3.4-4.8); Alkaline Phosphatase 66 U/L (40-110); Anion Gap 16 mmol/L (10-20); BUN (Urea Nitrogen) 15 mg/dL (8.4-25.7); Bilirubin, Total 1.1 mg/dL (0.2-1.2); Calc. Creatinine Clearance 0 mL/min (70-130); Calcium 9.4 mg/dL (7.8-10.44); Carbon Dioxide 19 mmol/L (23-31); Chloride 106 mmol/L (98-107); Estimated GFR-MDRD 47; Globulin 3.5 g/dL (2.4-3.5); Glucose 120 mg/dL (80-115); Lipase 26 U/L (8-78); Potassium 3.2 mmol/L (3.5-5.1); Protein, Total 7.7 g/dL (5.8-8.1); Sodium 138 mmol/L (136-145)
--- NOTE | 2019-11-12 08:42 | CT ---
PRELIMINARY REPORT/DIRECT RADIOLOGY/EMERGENTY AFTER-HOURS PROCEDURE CT abdomen and pelvis without contrast: Comparison: None Findings: Linear densities in volume loss in the lung bases. Cholelithiasis. No evidence of cholecystitis or biliary obstruction. No hydronephrosis or symptomatic urinary calculus. The margins of the pancreas are indistinct. There may be mild edema around the pancreas. The solid organs are otherwise unremarkable within the limits of a noncontrast study. No bowel obstruction, free fluid, free air, abscess or diverticulitis. Small umbilical hernia contains only fat. Atherosclerosis. No aneurysm. Enlarged prostate gland. Normal size urinary bladder. Normal appendix. Degenerative change in the lumbar spine with convex right scoliosis. Impression: Possible pancreatitis. No significant fluid collection. Slightly nodular liver. Correlate clinically for liver disease. Scarring or subsegmental atelectasis in the lung bases. FINAL REPORT: FINDINGS: I agree with the preliminary report provided. 1. There is some reticulation surrounding the liver which may reflect sequellae of a mild pancreatiti s. Recommend correlation with the clinical examination and laboratory evaluation. 2. Cholelithiasis. 3. Prostate enlargement. 4. Osteonecrosis of both femoral heads. 5. Dextroscoliosis of the lumbar spine with bone island at the L4 vertebral body. POS: [facility]
== END 2019-11-12 03:30 | disposition home or self-care (01) ==
LOC: ERS 00:18
DX: R11.2 Nausea with vomiting, unspecified (principal); J44.9 Chronic obstructive pulmonary disease, unspecified; F17.210 Nicotine dependence, cigarettes, uncomplicated; E78.5 Hyperlipidemia, unspecified; E78.00 Pure hypercholesterolemia, unspecified; I11.0 Hypertensive heart disease with heart failure; I50.9 Heart failure, unspecified; Z79.899 Other long term (current) drug therapy; Z79.82 Long term (current) use of aspirin
CPT/HCPCS: 36415; 74176; 80053; 83605; 83690; 85025; 96361; 96374; 96376; J2405

== ENCOUNTER 2019-11-30 05:58 | Day surgery (SDC) | payer MEDICARE, MEDICAID ==
[2019-11-28 11:34] VITALS: BMI 24.3
[2019-11-30] MEDS ORDERED: Lidocaine 1% (PF) 30 ML VIAL ONE (08:58)
[2019-11-30] MEDS ORDERED: Iopamidol 370 76% 100 ML VIAL ONE (09:15)
[2019-11-30] MEDS ORDERED: traMADol HCl 50 MG TAB PO PRN (10:37)
[2019-11-30] MEDS ORDERED: Acetaminophen/Codeine 30-300mg Tablet PO PRN ×2 (10:37)
[2019-11-30] MEDS ORDERED: Nitroglycerin 0.4 MG TAB (25 Tab Bottle) SL PRN (10:37)
[2019-11-30] MEDS ORDERED: Sodium Chloride 0.9% 1,000 ML IV SCH (10:37)
--- NOTE | 2019-12-01 04:02 | DIS ---
DATE OF ADMISSION: 11/30/2019 DATE OF DISCHARGE: 11/30/2019 HOSPITAL COURSE: Mr. Sandhu underwent outpatient cardiac catheterization today, reveals ejection fraction is 15%. The end-diastolic pressure is 26. He has a severe global hypokinesis. He has 40% to 50% mid LAD lesion, 40% to 50% mid right coronary lesion. These are nonobstructive and are not the source of his severe cardiomyopathy. ASSESSMENT: 1. Severe cardiomyopathy. 2. Nonobstructive coronary artery disease. 3. Preoperative evaluation. PLAN: The patient will be at increased risk for complications from a cardiac standpoint with surgery. If the patient absolutely needs the surgery in an essential fashion, surgery could be done. He would not be prohibitive risk as he does not have ischemic coronary lesions, but there will be some increased risk of congestive heart failure or hypotension perioperatively, especially postoperatively. We will discuss with Dr. Adhikari. Job ID: [id number]
== END 2019-11-30 15:32 | disposition home or self-care (01) ==
LOC: CCL 05:58
PROVIDERS: ATTEND Internal Medicine Cardiovascular Disease
PROC: 4A023N7 Measurement of Cardiac Sampling and Pressure, Left Heart, Percutaneous Approach (ICD-10-PCS; principal; 2019-11-30)
PROC: B2111ZZ Fluoroscopy of Multiple Coronary Arteries using Low Osmolar Contrast (ICD-10-PCS; 2019-11-30)
DX: I25.10 Atherosclerotic heart disease of native coronary artery without angina pectoris (principal); I42.9 Cardiomyopathy, unspecified; I13.0 Hypertensive heart and chronic kidney disease with heart failure and stage 1 through stage 4 chronic kidney disease, or unspecified chronic kidney disease; N18.3 Chronic kidney disease, stage 3 (moderate); I50.22 Chronic systolic (congestive) heart failure; E78.00 Pure hypercholesterolemia, unspecified; F32.9 Major depressive disorder, single episode, unspecified; I44.7 Left bundle-branch block, unspecified; I47.1 Supraventricular tachycardia; I48.0 Paroxysmal atrial fibrillation; E87.6 Hypokalemia; Z79.82 Long term (current) use of aspirin; Z79.899 Other long term (current) drug therapy; Z88.8 Allergy status to other drugs, medicaments and biological substances; Z88.5 Allergy status to narcotic agent
CPT/HCPCS: 76942; 93458; C1769; J1644; J2001; Q9967

== ENCOUNTER 2019-12-16 06:31 | Outpatient (CLI) | payer MEDICARE, MEDICAID, OTHER ==
[2019-12-16 14:05] LABS: #Eosinphils 0.1 thou/uL (0.0-0.7); #Lymphocytes 1.3 thou/uL (1.20-3.40); #Monocytes 0.5 thou/uL (0.11-0.59); #Neutrophils 3.3 thou/uL (1.40-6.50); %Basophils 0.7 % (0.0-1.0); %Eosinophils 1.4 % (0.0-10.0); %Lymphocytes 25.3 % (21.0-51.0); %Monocytes 9.8 % (0.0-10.0); %Neutrophils 62.8 % (42.0-75.0); Hemoglobin 15.1 g/dL (14.0-18.0); Mean Corpuscular HGB CONC 31.8 g/dL (32.0-36.0); Mean Corpuscular Hemoglobin 31.6 pg (27.0-31.0); Mean Corpuscular Volume 99.3 fL (78.0-98.0); Mean Platelet Volume 10.7 fL (7.4-10.4); Platelet Count 146 thou/uL (130-400); RBC Distribution Width 12.1 % (11.5-14.5); Red Blood Cell (RBC) Count 4.77 mill/uL (4.70-6.10); White Blood Cell (WBC) Count 5.3 thou/uL (4.8-10.8)
[2019-12-16 14:09] LABS: Hemoglobin A1c 4.5 % (4.0-6.0)
[2019-12-16 14:25] LABS: Anion Gap 16 mmol/L (10-20); BUN (Urea Nitrogen) 15 mg/dL (8.4-25.7); Calc. Creatinine Clearance 0 mL/min (70-130); Calcium 9.4 mg/dL (7.8-10.44); Carbon Dioxide 26 mmol/L (23-31); Chloride 103 mmol/L (98-107); Estimated GFR-MDRD 47; Glucose 114 mg/dL (80-115); Potassium 3.8 mmol/L (3.5-5.1); Sodium 141 mmol/L (136-145)
--- NOTE | 2019-12-16 15:15 | RAD ---
PA AND LATERAL VIEWS CHEST: HISTORY: Preoperative evaluation. COMPARISON: 08/30/2009. FINDINGS: A left-sided pacing device remains in place. The heart size is borderline. The aorta is tortuous. The lungs are expanded without lobar consolidation, pneumothoraces, or pleural effusions. Postop jatinder nges of metallic hardware in the lower cervical spine were again seen. IMPRESSION: No acute process. POS: [facility]
[2019-12-16 17:52] LABS: SARS-CoV-2 MS2 Positive; SARS-CoV-2 N Gene Negative; SARS-CoV-2 S Gene Negative; SARS-CoV-2 orf1ab Negative
== END 2019-12-16 06:32 | disposition home or self-care (01) ==
LOC: LABBT 06:31
PROVIDERS: ATTEND Specialist
DX: Z01.818 Encounter for other preprocedural examination (principal); Z11.59 Encounter for screening for other viral diseases; K63.89 Other specified diseases of intestine
CPT/HCPCS: 71046; 80048; 83036; 85025; 93005; U0003; 87635; 93010

== ENCOUNTER 2019-12-30 15:48 | Emergency (ER) | payer MEDICARE, MEDICAID ==
[~2019-12-30 15:48] MED LIST changes: +Iopamidol 370 76% 50 ML VIAL FS ONE; +Iopamidol-370 76% 500 ML 1 ML ONE; -Lidocaine 1% PF 5 ML VIAL ONE; -PROPOFOL 200 MG/20 ML VIAL ONE
--- NOTE | 2019-12-30 17:07 | RAD ---
SINGLE VIEW OF THE CHEST: Comparison: 12-20-2019 History: Swelling and chest pain. FINDINGS: Single view of the chest shows an enlarged but stable cardiomediastinal silhouette. The pacemaker is unchanged in position. There is no evidence of consolidation, mass, or pleural effusion. The central line has been removed. Hardware is seen in the cervical spine. IMPRESSION: Cardiomegaly without evidence of acute cardiopulmonary disease. POS: [facility]
[2019-12-30 17:13] LABS: Hemoglobin 13.4 g/dL (14.0-18.0); Mean Corpuscular HGB CONC 31.4 g/dL (32.0-36.0); Mean Corpuscular Hemoglobin 30.5 pg (27.0-31.0); Mean Corpuscular Volume 97.3 fL (78.0-98.0); Mean Platelet Volume 9.2 fL (7.4-10.4); Platelet Count 208 thou/uL (130-400); RBC Distribution Width 12.1 % (11.5-14.5); Red Blood Cell (RBC) Count 4.39 mill/uL (4.70-6.10)
[2019-12-30] MEDS ORDERED: Fentanyl 100 MCG/2 ML VIAL ONE (17:25)
[2019-12-30 17:35] LABS: Eosinophils 5 % (0-10); Lymphocytes 34 % (21-51); MDiff Complete? YES; Monocytes 5 % (0-10); Neutrophil 55 % (42-75); Platelet Clumps SLIGHT; Platelet Morphology Comment Appears Adequate; RBC Morphology Normal
[2019-12-30 17:54] LABS: ALT (SGPT) 15 U/L (8-55); AST (SGOT) 24 U/L (5-34); Albumin 3.9 g/dL (3.4-4.8); Alkaline Phosphatase 51 U/L (40-110); Anion Gap 13 mmol/L (10-20); BUN (Urea Nitrogen) 15 mg/dL (8.4-25.7); Bilirubin, Total 0.6 mg/dL (0.2-1.2); CK (CPK) 120 U/L (30-200); Calc. Creatinine Clearance 0 mL/min (70-130); Calcium 8.8 mg/dL (7.8-10.44); Carbon Dioxide 23 mmol/L (23-31); Chloride 105 mmol/L (98-107); Estimated GFR-MDRD 49; Globulin 3.5 g/dL (2.4-3.5); Glucose 88 mg/dL (80-115); Lipase 20 U/L (8-78); Potassium 3.9 mmol/L (3.5-5.1); Protein, Total 7.4 g/dL (5.8-8.1); Sodium 137 mmol/L (136-145)
[2019-12-30 18:16] LABS: CKMB 1.1 ng/mL (0-6.6)
--- NOTE | 2019-12-30 18:41 | CT ---
CT ABDOMEN WITH CONTRAST CT PELVIS WITH CONTRAST: DATE: 12/30/2019 HISTORY: 69-year-old male with left abdominal pain and swelling, and bloody diarrhea COMPARISON: 11/12/2019 TECHNIQUE: IV injection of iodinated contrast media: administered. Oral contrast media:Administered FINDINGS: Rim calcified 13 mm gallstone in proximal gallbladder body near neck. No excessive gallbladder lumen distention. Dextroscoliosis of lumbar spine and multilevel high-grade degenerative disc disease. Osteoblastic les ion at left side of one of the lower lumbar vertebral bodies, unchanged. Atherosclerosis without aneurysm of abdominal aorta. No major pathology identified involving liver, kidneys, spleen, adrenals , or pancreas. New finding of truncation of the ascending colon, now with suture line. The anastomosed distal ileum is dilated up to 3.5 cm distally, including at the anastomosis, but tapers p roximally 2 small caliber. Rest of the small bowel is normal in caliber. Redundant sigmoid colon. No evidence of colonic diverticulitis. No pleural effusion, ascites, or pneumoperitoneum. Very enlarg ed prostate gland superiorly displaces the bladder base. The bladder is filled with more urine on the current CT compared to the previous, and this reveals a approximately 1.5 cm soft tissue attenuat ion nodule at midline at the bladder base, at the interface between the urinary bladder and prostate gland. IMPRESSION: 1) status post right hemicolectomy 2) benign prostatic hyperplasia (BPH). The presence of this does not necessarily rule out prostate ca ncer. 3) small round 1.5 cm nodule at the interface between urinary bladder and prostate gland. Possibiliti es include superior extension of the BPH, prostate cancer, and bladder cancer. Recommend urology consultation. 4) lumbar spondylosis and scoliosis. 5) no acute findings
[2019-12-30 19:01] LABS: Bilirubin Negative (Negative); Blood, Urine Negative (Negative); Clarity Clear (Clear); Glucose, Urine (Dipstick) Normal (Negative); Leukocyte Negative Leu/uL (Negative); Nitrite Negative (Negative); Protein, Urine (Dipstick) Negative (Neg-Trace); Urobilinogen Normal mg/dL (Less than 2)
[2019-12-30 19:43] LABS: Lactic Acid 0.7 mmol/L (0.5-2.2)
== END 2019-12-30 20:11 | disposition left against medical advice (07) ==
LOC: ERS 15:48
DX: G89.18 Other acute postprocedural pain (principal); R10.84 Generalized abdominal pain; I11.0 Hypertensive heart disease with heart failure; I50.9 Heart failure, unspecified; E78.5 Hyperlipidemia, unspecified; J44.9 Chronic obstructive pulmonary disease, unspecified; E78.00 Pure hypercholesterolemia, unspecified; Z87.891 Personal history of nicotine dependence
CPT/HCPCS: 36415; 71045; 74177; 80053; 81003; 82550; 82553; 83605; 83690; 84484; 85025; 86850; 86900; 86901; 87040; 87086; 93005; 96361; 96374; J3010

== ENCOUNTER 2019-12-30 20:29 | Observation (INO) | payer MEDICARE, MEDICAID ==
[2019-12-30 22:38] LABS: Troponin I 0.034 ng/mL (< 0.028)
[2019-12-30 23:25] VITALS: BMI 24.6
[2019-12-30] MEDS: Dextrose 5 %-0.45 % NaCl 1,000 ML IV SCH (23:30)
--- NOTE | 2019-12-31 01:31 | CON ---
DATE OF CONSULTATION: CHIEF COMPLAINT: Abdominal pain. HISTORY OF PRESENT ILLNESS: This is a 69-year-old male, who 10 days ago underwent a laparoscopic right hemicolectomy for colon cancer. He was discharged 6 days ago. He said that 4 days ago he started having abdominal pain and abdominal swelling. No nausea or vomiting. His bowels are functioning well. He had a bowel movement. Passed flatus today. He denies fever. The pain is described as constant and located primarily in the upper abdomen, but it migrates to lower. He was hypotensive in the emergency room, but responded to fluids. PAST MEDICAL HISTORY: COPD, congestive heart failure, hypertension, gastroesophageal reflux, hyperlipidemia, home O2, depression. PAST SURGICAL HISTORY: He has had ICD pacemaker placement, hand surgery, and recent colon surgery. MEDICATIONS: 1. ProAir. 2. Iron. 3. Tamsulosin. 4. Albuterol. 5. Aspirin. 6. Entresto. 7. Lasix. 8. Protonix. 9. Gabapentin. SOCIAL HISTORY: He uses marijuana. No alcohol. Former smoker. ALLERGIES: TO NIACIN AND CODEINE. FAMILY HISTORY: Noncontributory. PHYSICAL EXAMINATION: VITAL SIGNS: Temperature 97.5, pulse 71, blood pressure 110/81. GENERAL: He is awake, alert, lying on his side. HEENT: Unremarkable. LUNGS: Clear. HEART: Regular rate and rhythm. ABDOMEN: Somewhat distended. He has a healing incision in right upper quadrant and several laparoscopic incisions. I do not feel any hernias. He has bowel sounds present. LABORATORY DATA: His white count is 5, H and H 13 and 42, platelet count 208. Electrolytes fine. Troponin is elevated at 0.034. CT scan of the abdomen shows no free air. No free fluid. A little bit of dilatation of the terminal ileum, gallstone. ASSESSMENT: Hypotensive episode, worrisome for cardiac origin. I am not entirely sure what is causing his abdominal pain. I do not see evidence of a catastrophic surgical abdomen. PLAN: I recommend medical evaluation and admission. We will follow. Job ID: [id number]
[2019-12-31] MEDS ORDERED: HYDROcodone/Acetaminophen 5/325 mg Tablet PO PRN ×2 (01:34)
--- NOTE | 2019-12-31 02:01 | HP ---
CHIEF COMPLAINT: Postoperative abdominal pain. HISTORY OF PRESENT ILLNESS: Mr. Sandhu is a 69-year-old male who recently underwent colectomy by Dr. Adhikari, presents to the emergency room with abdominal pain that started postoperatively, got worse today. The patient came to the emergency room earlier today, and initially he was hypotensive with systolic blood pressure in the 70s, the patient was given an IV fluid bolus, blood pressure improved. CT of the abdomen showed postoperative changes and incidental lesion between the bladder and the prostate. The patient signed against medical advice because he said that he has to go to something at his house. He came back with persistence of the abdominal pain. ED nurse practitioner discussed the case with Dr. Adhikari, surgeon, who advised to admit the patient under Medical Service, and consult the surgeon incident response coordinator for further management. Incidentally, the patient had troponin of 0.03. The patient denies chest pain. The patient has a history of congestive heart failure, COPD, hypertension, pacemaker/AICD. The patient is being admitted to hospital for further management. PAST MEDICAL HISTORY: 1. Congestive heart failure. 2. Pacemaker/AICD. 3. Hyperlipidemia. 4. Hypertension. 5. COPD. 6. Colonic malignancy/precancerous? PAST SURGICAL HISTORY: 1. Recent hemicolectomy. 2. AICD/pacemaker. 3. Cyst removed from the right hand. SOCIAL HISTORY: Denies alcohol drinking. He smokes cigarettes. He is a former smoker. Quit smoking one year ago. FAMILY HISTORY: Reviewed and noncontributory. HOME MEDICATIONS: Please see home medication reconciliation form for updated medications. ALLERGIES: ALLERGIC TO CODEINE, DULOXETINE, MIRTAZAPINE, NIACIN. REVIEW OF SYSTEMS: Review of 14 systems negative except what is mentioned in the history of present illness. PHYSICAL EXAMINATION: GENERAL: The patient is awake, alert, in moderate distress. VITAL SIGNS: Blood pressure currently is 90/55, pulse is 71, respiratory rate is 17, temperature 97.5, oxygen saturations 98% on room air. HEAD AND NECK: Normocephalic and atraumatic. NECK: Supple. No JVD. CHEST: Fair bilateral air entry. HEART: Distant heart sounds. ABDOMEN: Mildly distended with lower abdominal tenderness. Bowel sounds present. NEUROLOGIC: Awake, alert, oriented x3. No focal deficits. PSYCH: Unable to assess. EXTREMITIES: No clubbing, no cyanosis. LABORATORY DATA: WBC 5.0, hemoglobin 13.4, platelets 208. Sodium is 137, potassium 3.9, BUN is 15, creatinine is 1.7. Troponin 0.03. BNP 1952. CT abdomen and pelvis as mentioned above in the history of present illness. ASSESSMENT: 1. Acute abdominal pain, postoperative. 2. Recent hemicolectomy. 3. Indeterminate troponin, denies chest pain. 4. Borderline low blood pressure. 5. Congestive heart failure. 6. Pacemaker/automatic implantable cardioverter-defibrillator. 7. Chronic obstructive pulmonary disease. 8. History of hypertension. 9. Bladder/prostate lesion, significant? PLAN: 1. Admit to IMCU. Case was discussed with the ED. We will upgrade him to IMCU to monitor for symptoms and low blood pressure. 2. We will give another fluid IV bolus for low blood pressure. 3. Surgeon consulted for evaluation and further management. The ED staff consulted with Dr. Adhikari who advised to consult surgeon incident response coordinator. 4. Pain management with close monitoring of vital signs and pulse oximetry. The patient requires high dose of IV opiates. 5. Keep the patient n.p.o. for now. 6. Serial troponins. 7. Reconcile home medications. 8. DVT prophylaxis as appropriate. 9. Expected length of stay at least 1 midnight if patient is stable and cleared by surgeon. Job ID: [id number]
[2019-12-31 07:50] VITALS: BP 101/77
[2019-12-31] MEDS ORDERED: Aspirin 325 mg Enteric Coated Tablet PO SCH (09:00)
[2019-12-31] MEDS ORDERED: Famotidine/PF 20 mg/2ml Vial SLOW IVP SCH (09:00)
[2019-12-31 09:51] LABS: #Eosinphils 0.1 thou/uL (0.0-0.7); #Lymphocytes 1.1 thou/uL (1.20-3.40); #Monocytes 0.4 thou/uL (0.11-0.59); #Neutrophils 2.2 thou/uL (1.40-6.50); %Basophils 0.4 % (0.0-1.0); %Eosinophils 3.8 % (0.0-10.0); %Lymphocytes 27.8 % (21.0-51.0); %Monocytes 9.2 % (0.0-10.0); %Neutrophils 58.8 % (42.0-75.0); Hemoglobin 12.2 g/dL (14.0-18.0); Mean Corpuscular HGB CONC 32.4 g/dL (32.0-36.0); Mean Corpuscular Hemoglobin 31.3 pg (27.0-31.0); Mean Corpuscular Volume 96.6 fL (78.0-98.0); Mean Platelet Volume 9.2 fL (7.4-10.4); Platelet Count 205 thou/uL (130-400); White Blood Cell (WBC) Count 3.8 thou/uL (4.8-10.8)
--- NOTE | 2019-12-31 10:00 | PRG ---
DATE OF SERVICE: 12/31/2019 SUBJECTIVE: The patient states he is feeling a lot better. Pain is better. No nausea or vomiting. His bowels are working. He is hungry, wants to be fed. OBJECTIVE: VITAL SIGNS: On exam, temperature 97.4, pulse 61, blood pressure 101/77. GENERAL: He looks good. LUNGS: Clear. ABDOMEN: Soft, nondistended, and nontender. Good bowel sounds. The incision is healing well. ASSESSMENT: Doing well. PLAN: Clear liquids, advance as tolerated. Discharge when stable from medical service. Job ID: [id number]
[2019-12-31 10:15] LABS: ALT (SGPT) 11 U/L (8-55); AST (SGOT) 17 U/L (5-34); Albumin 3.4 g/dL (3.4-4.8); Alkaline Phosphatase 44 U/L (40-110); Anion Gap 13 mmol/L (10-20); BUN (Urea Nitrogen) 11 mg/dL (8.4-25.7); Bilirubin, Total 0.7 mg/dL (0.2-1.2); Calc. Creatinine Clearance 59 mL/min (70-130); Calcium 7.9 mg/dL (7.8-10.44); Carbon Dioxide 24 mmol/L (23-31); Chloride 107 mmol/L (98-107); Estimated GFR-MDRD 60; Globulin 2.7 g/dL (2.4-3.5); Glucose 85 mg/dL (80-115); Potassium 3.7 mmol/L (3.5-5.1); Protein, Total 6.1 g/dL (5.8-8.1); Sodium 140 mmol/L (136-145)
[2019-12-31 10:16] LABS: Troponin I 0.044 ng/mL (< 0.028)
[2019-12-31] MEDS: Dextrose 5 %-0.45 % NaCl 1,000 ML IV SCH (11:27)
[2019-12-31 12:34] VITALS: TEMP 96.9
--- NOTE | 2019-12-31 14:19 | CON ---
DATE OF CONSULTATION: 12/31/2019 REASON FOR CONSULTATION: Bladder mass. CHIEF COMPLAINT: Abdominal pain. HISTORY OF PRESENT ILLNESS: This is a 69-year-old male who is 11 days out from laparoscopic right hemicolectomy for colon cancer. He was readmitted yesterday for pain and abdominal swelling. CT scan was obtained, showing enlarged prostate with small mass emanating from the prostate at the bladder neck. In speaking to the patient, his pain is much improved today and he is tolerating regular diet. He tells me that he has no urinary symptoms under normal conditions. Episode of post-op retention this past fall after cholecystectomy. He is currently taking tamsulosin. No history of gross hematuria. No family history of prostate cancer. Seen by me after his episode of retention. PAST MEDICAL HISTORY: 1. CHF. 2. Hypertension. 3. Hyperlipidemia. 4. Depression. 5. Reflux. 6. COPD. SURGICAL HISTORY: 1. Colectomy as above. 2. Hand surgery. 3. Pacemaker. MEDICATIONS: Reviewed, pertinent for tamsulosin. SOCIAL HISTORY: Former smoker. No substance abuse. ALLERGIES: NIACIN AND CODEINE. FAMILY HISTORY: Reviewed, negative for prostate cancer. REVIEW OF SYSTEMS: Ten-point review of systems is negative except as mentioned above. PHYSICAL EXAMINATION: VITAL SIGNS: Afebrile, vitals stable overnight. GENERAL: No acute distress, conversant. HEAD: Normocephalic and atraumatic. NECK: Supple. Trachea midline. EYES: Extraocular movements intact. Sclerae are nonicteric. LUNGS: Breathing unlabored. Symmetric chest expansion. HEART: Regular rate and rhythm. ABDOMEN: No appreciable distention. Mild tenderness to palpation. Laparoscopic incision is healing well. No suprapubic or flank tenderness. : Normal phallus and testicles. Prostate exam deferred until time of cystoscopy. EXTREMITIES: Without clubbing, cyanosis, or edema. NEUROLOGIC: Alert and oriented x3. PSYCHIATRIC: Normal mood and affect. LABORATORY VALUES: Reviewed this morning. White count 3.8 and hemoglobin 12.2. Creatinine 1.43. Urinalysis negative for blood. IMAGING STUDIES: Reviewed, showing enlarged prostate with what appears to be a median lobe protruding into the bladder, although bladder pathology certainly cannot be entirely excluded. ASSESSMENT AND PLAN: Enlarged prostate with lower urinary tract symptoms, possible bladder mass. The patient has no history of gross hematuria or microscopic hematuria on recent urinalysis. I see no reason to proceed with emergent cystoscopy. This is very likely a median lobe protruding from the prostate into the bladder; however, cystoscopy will be performed in my office around 3 weeks from now to ensure that this is indeed the case. TIME SPENT: Greater than 50 minutes spent in the patient's care. Job ID: [id number] MTDD
--- NOTE | 2019-12-31 21:11 | DIS ---
DATE OF ADMISSION: 12/30/2019 DATE OF DISCHARGE: 12/31/2019 DISCHARGE DIAGNOSES: 1. Abdominal pain, postoperative. 2. Hypertension. 3. Systolic congestive heart failure, chronic. 4. Chronic obstructive pulmonary disease. DISCHARGE MEDICATIONS: 1. Amiodarone 100 mg orally daily. 2. Aspirin 325 mg orally daily. 3. Lexapro 10 mg orally daily. 4. Ferrous sulfate 325 mg orally daily. 5. Breo Ellipta 200/25 mcg inhaled daily. 6. Lasix 30 mg orally daily for edema. 7. [place] 5 one tablet q.4 hours as needed for pain. 8. DuoNeb 3 mL q.4 hours as needed shortness of breath or wheezing. 9. Pantoprazole 40 mg orally daily. 10. Entresto 24 mg/26 mg tablet orally twice daily. 11. Tamsulosin 0.4 mg orally daily. 12. Ambien 5 mg orally nightly as needed for insomnia. HISTORY OF PRESENT ILLNESS AND BRIEF HOSPITAL COURSE: The patient is a 69-year-old male with history of COPD, nonobstructive coronary artery disease, cardiomyopathy with low ejection fraction, and recent laparoscopic right hemicolectomy for colon cancer, who presented to the hospital with complaints of abdominal pain that he has been experiencing since his surgery. He was also found to be borderline hypotensive. The patient was managed with gentle IV hydration leading to improvement in his blood pressure. Surgery Service consulted and CT scan of the abdomen and pelvis was performed, which did not show any acute abnormalities. The patient's diet was advanced gradually and he was cleared to be discharged by Surgery as his pain is not explained by any acute abnormality. His troponin level was found to be slightly elevated at 0.034, which is chronic for him given his low EF. Recommend outpatient followup with PCP in 1 week. Job ID: [id number]
== END 2019-12-31 12:50 | disposition home or self-care (01) ==
LOC: ERS 20:29 → IMCU/EMU 21:31
PROVIDERS: ADMIT Surgery; ATTEND Surgery
DX: G89.18 Other acute postprocedural pain (principal); R10.10 Upper abdominal pain, unspecified; I11.0 Hypertensive heart disease with heart failure; I50.22 Chronic systolic (congestive) heart failure; J44.9 Chronic obstructive pulmonary disease, unspecified; E78.5 Hyperlipidemia, unspecified; K21.9 Gastro-esophageal reflux disease without esophagitis; I95.9 Hypotension, unspecified; F32.9 Major depressive disorder, single episode, unspecified; N40.1 Benign prostatic hyperplasia with lower urinary tract symptoms; I25.10 Atherosclerotic heart disease of native coronary artery without angina pectoris; I42.9 Cardiomyopathy, unspecified; Z87.891 Personal history of nicotine dependence; Z79.82 Long term (current) use of aspirin; Z79.899 Other long term (current) drug therapy; Z88.5 Allergy status to narcotic agent; Z88.8 Allergy status to other drugs, medicaments and biological substances; Z90.49 Acquired absence of other specified parts of digestive tract; Z95.810 Presence of automatic (implantable) cardiac defibrillator
CPT/HCPCS: 71045; 74177; 80053 ×2; 81003; 82550; 82553; 83605; 83690; 84484 ×3; 85025 ×2; 86850; 86900; 86901; 87040; 87086; 93005; 96360; 96361; 96374; 99284; G0378 ×3; 36415; J3010; Q9967; S0028

== ENCOUNTER 2020-01-16 18:31 | Emergency (ER) | payer MEDICARE, MEDICAID ==
[~2020-01-16 18:31] MED LIST changes: +Iopamidol 370 76% 100 ML VIAL ONE; -Iopamidol 370 76% 50 ML VIAL FS ONE; -Iopamidol-370 76% 500 ML 1 ML ONE
[2020-01-16] MEDS ORDERED: Ibuprofen 800 MG TAB ONE (20:29)
[2020-01-16 20:43] LABS: #Eosinphils 0.1 thou/uL (0.0-0.7); #Lymphocytes 1.2 thou/uL (1.20-3.40); #Monocytes 0.6 thou/uL (0.11-0.59); #Neutrophils 3.8 thou/uL (1.40-6.50); %Basophils 0.7 % (0.0-1.0); %Eosinophils 1.5 % (0.0-10.0); %Monocytes 9.7 % (0.0-10.0); %Neutrophils 67.1 % (42.0-75.0); Hemoglobin 12.7 g/dL (14.0-18.0); Mean Corpuscular HGB CONC 33.4 g/dL (32.0-36.0); Mean Corpuscular Hemoglobin 32.5 pg (27.0-31.0); Mean Corpuscular Volume 97.2 fL (78.0-98.0); Mean Platelet Volume 10.2 fL (7.4-10.4); Platelet Count 160 thou/uL (130-400); RBC Distribution Width 12.7 % (11.5-14.5); Red Blood Cell (RBC) Count 3.89 mill/uL (4.70-6.10); White Blood Cell (WBC) Count 5.7 thou/uL (4.8-10.8)
[2020-01-16] MEDS ORDERED: Morphine 2 MG/ML SYRINGE ONE (20:45)
[2020-01-16 21:13] LABS: ALT (SGPT) 15 U/L (8-55); AST (SGOT) 19 U/L (5-34); Albumin 3.8 g/dL (3.4-4.8); Alkaline Phosphatase 66 U/L (40-110); Anion Gap 12 mmol/L (10-20); BUN (Urea Nitrogen) 14 mg/dL (8.4-25.7); Calc. Creatinine Clearance 0 mL/min (70-130); Calcium 8.9 mg/dL (7.8-10.44); Carbon Dioxide 24 mmol/L (23-31); Chloride 105 mmol/L (98-107); Estimated GFR-MDRD 57; Globulin 3.1 g/dL (2.4-3.5); Glucose 86 mg/dL (80-115); Potassium 3.4 mmol/L (3.5-5.1); Protein, Total 6.9 g/dL (5.8-8.1); Sodium 138 mmol/L (136-145)
[2020-01-16] MEDS ORDERED: Ondansetron PF 4 MG/2 ML Vial ONE (21:27)
--- NOTE | 2020-01-16 22:33 | CT ---
CT Abdomen Pelvis W Con History: Abdominal pain Comparison: CT abdomen and pelvis December 30, 2019 Findings: Small right pleural effusion. Linear atelectasis within both lung bases. Left lower lobe bu lla. There is cholelithiasis. Mild atrophy of the pancreas. Aortic contour is nonaneurysmal. No dilated loops of large or small bowel. Ileocolic anastomosis is i ntact. Prostate is enlarged. Small fat-containing umbilical hernia. No free intraperitoneal gas or fluid. No hydronephrosis. Mild dextro scoliosis lumbar spine, degenerative in nature. Bone island of L4. 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 Impression: 1. Low-grade stranding in the right subhepatic space likely postsurgical in nature and less likely se quelae of cholecystitis of the gallbladder is not distended and there is new surgical scar along the right lower quadrant of the abdomen. 2. Cholelithiasis. 3. No evidence for bowel obstruction. Intact ileocolic anastomosis. 4. Small right pleural effusion and bibasilar atelectasis.
== END 2020-01-16 23:47 | disposition home or self-care (01) ==
LOC: ERS 18:31
DX: R10.31 Right lower quadrant pain (principal); R10.11 Right upper quadrant pain; E78.5 Hyperlipidemia, unspecified; E78.00 Pure hypercholesterolemia, unspecified; I10 Essential (primary) hypertension; J44.9 Chronic obstructive pulmonary disease, unspecified; F17.210 Nicotine dependence, cigarettes, uncomplicated; Z79.82 Long term (current) use of aspirin; Z79.899 Other long term (current) drug therapy
CPT/HCPCS: 36415; 74177; 80053; 85025; 93005; 96374; 96375; J2270; J2405; Q9967

== ENCOUNTER 2020-02-16 00:27 | Emergency (ER) | payer MEDICARE, MEDICAID ==
[2020-02-16] MEDS ORDERED: Ondansetron PF 4 MG/2 ML Vial ONE (01:01)
[2020-02-16] MEDS ORDERED: Albuterol 200 PUFF (6.7GM INHALER) ONE (01:01)
[2020-02-16 01:35] LABS: #Eosinphils 0.1 thou/uL (0.0-0.7); #Lymphocytes 0.7 thou/uL (1.20-3.40); #Monocytes 0.7 thou/uL (0.11-0.59); #Neutrophils 4.5 thou/uL (1.40-6.50); %Basophils 0.7 % (0.0-1.0); %Eosinophils 2.1 % (0.0-10.0); %Lymphocytes 11.8 % (21.0-51.0); %Monocytes 11.5 % (0.0-10.0); Mean Corpuscular HGB CONC 33.9 g/dL (32.0-36.0); Mean Corpuscular Hemoglobin 32.2 pg (27.0-31.0); Mean Corpuscular Volume 94.9 fL (78.0-98.0); Mean Platelet Volume 10.3 fL (7.4-10.4); Platelet Count 193 thou/uL (130-400); Red Blood Cell (RBC) Count 3.73 mill/uL (4.70-6.10); White Blood Cell (WBC) Count 6.1 thou/uL (4.8-10.8)
[2020-02-16 01:57] LABS: ALT (SGPT) 11 U/L (8-55); AST (SGOT) 17 U/L (5-34); Albumin 3.7 g/dL (3.4-4.8); Alkaline Phosphatase 59 U/L (40-110); Anion Gap 12 mmol/L (10-20); BUN (Urea Nitrogen) 13 mg/dL (8.4-25.7); Calc. Creatinine Clearance 0 mL/min (70-130); Calcium 8.6 mg/dL (7.8-10.44); Carbon Dioxide 23 mmol/L (23-31); Chloride 106 mmol/L (98-107); Estimated GFR-MDRD 62; Globulin 3.2 g/dL (2.4-3.5); Glucose 90 mg/dL (80-115); Potassium 3.2 mmol/L (3.5-5.1); Protein, Total 6.9 g/dL (5.8-8.1); Sodium 138 mmol/L (136-145)
--- NOTE | 2020-02-16 07:49 | RAD ---
Final report by Dr. Monet Emergency after-hours study RADIOGRAPH CHEST ONE VIEW RADIOGRAPH ABDOMEN 2 VIEWS: DATE: 02/16/2020 HISTORY: 70-year-old male with dyspnea, nausea, vomiting, and chills. COMPARISON: 12/30/2019 Chest radiograph. No recent abdominal radiograph. FINDINGS: New small focal nodular density with ill-defined margins at right lower lung zone. Left subclavian AI CD remains. Ectasia and tortuosity of thoracic aorta. New small bilateral pleural effusions. No pulmonary edema. No pneumothorax. Possible hyperinflation suggestive of COPD. Cardiac size upper limi ts of normal. Mild pulmonary venous congestion. Nonobstructive bowel gas pattern. There are air-fluid levels in some nondilated bowel loops. No pneum operitoneum. Dextroscoliosis of lumbar spine with high-grade lumbar spondylosis. No evidence of organomegaly. No major disagreement with preliminary report by direct radiology. IMPRESSION: 1) new small bilateral pleural effusions. 2) new small focal nodular infiltrate versus fluid trapped in fissure on the right. Recommend follow- up. 3) no evidence of bowel obstruction
== END 2020-02-16 05:27 | disposition home or self-care (01) ==
LOC: ERS 00:27
DX: J44.1 Chronic obstructive pulmonary disease with (acute) exacerbation (principal); I11.0 Hypertensive heart disease with heart failure; I50.9 Heart failure, unspecified; E78.5 Hyperlipidemia, unspecified; E78.00 Pure hypercholesterolemia, unspecified; F17.210 Nicotine dependence, cigarettes, uncomplicated; Z79.899 Other long term (current) drug therapy
CPT/HCPCS: 74022; 80053; 85025; 93005; 96361; 96374; J2405

== ENCOUNTER 2020-02-18 14:02 | Inpatient (IN) | payer MEDICARE, MEDICAID ==
[2020-02-18 14:32] LABS: #Eosinphils 0.1 thou/uL (0.0-0.7); #Lymphocytes 0.9 thou/uL (1.20-3.40); #Monocytes 0.6 thou/uL (0.11-0.59); #Neutrophils 4.9 thou/uL (1.40-6.50); %Basophils 0.5 % (0.0-1.0); %Eosinophils 1.3 % (0.0-10.0); %Monocytes 9.7 % (0.0-10.0); %Neutrophils 74.6 % (42.0-75.0); Hemoglobin 12.2 g/dL (14.0-18.0); Mean Corpuscular Hemoglobin 32.3 pg (27.0-31.0); Mean Corpuscular Volume 95.2 fL (78.0-98.0); Mean Platelet Volume 9.1 fL (7.4-10.4); Platelet Count 201 thou/uL (130-400); Red Blood Cell (RBC) Count 3.78 mill/uL (4.70-6.10); White Blood Cell (WBC) Count 6.5 thou/uL (4.8-10.8)
--- NOTE | 2020-02-18 14:42 | RAD ---
XR Chest 1 View Portable History: Dyspnea Comparison: Radiograph prior day Findings: Progressive consolidation right lower lobe. Also left lower lobe airspace opacities. No pne umothorax. Cardiac device is similar. Impression: Progressive consolidation of the lower lobes.
[2020-02-18] MEDS ORDERED: Albuterol 200 PUFF (6.7GM INHALER) ONE (14:48)
[2020-02-18] MEDS ORDERED: cefTRIAXone\\ROCEPHIN 2 GM VIAL ONE (15:05)
[2020-02-18] MEDS ORDERED: Dexamethasone 10 MG/ML VIAL ONE (15:05)
[2020-02-18] MEDS ORDERED: Azithromycin 500 MG VIAL ONE (15:06)
[2020-02-18 15:08] LABS: ALT (SGPT) 10 U/L (8-55); AST (SGOT) 16 U/L (5-34); Albumin 3.7 g/dL (3.4-4.8); Alkaline Phosphatase 61 U/L (40-110); Anion Gap 12 mmol/L (10-20); BUN (Urea Nitrogen) 11 mg/dL (8.4-25.7); Bilirubin, Total 1.2 mg/dL (0.2-1.2); CK (CPK) 98 U/L (30-200); Calc. Creatinine Clearance 0 mL/min (70-130); Calcium 8.4 mg/dL (7.8-10.44); Carbon Dioxide 23 mmol/L (23-31); Chloride 107 mmol/L (98-107); Estimated GFR-MDRD 62; Globulin 2.9 g/dL (2.4-3.5); Glucose 120 mg/dL (80-115); Potassium 3.4 mmol/L (3.5-5.1); Protein, Total 6.6 g/dL (5.8-8.1); Sodium 139 mmol/L (136-145)
[2020-02-18 15:20] LABS: CKMB 0.9 ng/mL (0-6.6)
--- NOTE | 2020-02-18 17:10 | HP ---
PRIMARY CARE PHYSICIAN: Dr. Humberto Rae. REASON FOR ADMISSION: CHF and COPD exacerbation. HISTORY OF PRESENT ILLNESS: A 70-year-old male, who has end-stage cardiomyopathy with EF 15% to 20% as well as diastolic dysfunction, who has AICD in place. The patient came to the emergency room for evaluation of increasing shortness of breath. The patient reports that he has chronic shortness of breath, but for last 2 to 3 days, he is experiencing more short of breath. He does not have any lower extremity edema, but he has orthopnea and sometimes PND. The patient always has dyspnea on exertion. He denies any chest pain, palpitations, nausea, vomiting, syncope, or dizziness. In the emergency room, the patient's blood pressure was marginal 104/75, and he was tachypneic. He was saturating 96% on room air, and he has no lower extremity edema. Routine blood test done today in the emergency room showed elevated BNP with BNP 3413.2 which was double than previous. His troponin is also in indeterminate range. This patient has been evaluated with cardiac catheterization in November 2019. At that time, the patient was found with nonobstructive CAD, and medical therapy was recommended. The patient reports that he is taking medication as prescribed. In the emergency room today, x-ray of chest is showing progressive consolidation of lower lobes. COVID-19 test has been sent from the emergency room. The patient also has increasing shortness of breath. The patient does not have any classic exposure with COVID. REVIEW OF SYSTEMS: CONSTITUTIONAL: Negative for weight loss or gain, ability to conduct usual activities. SKIN: Negative for rash, itching. EYES: Negative for double vision, pain. ENT/MOUTH: Negative for nose bleeding, neck stiffness, pain, tenderness. CARDIOVASCULAR: Negative for palpitations, dyspnea on exertion, orthopnea. RESPIRATORY: Negative for shortness of breath, wheezing, cough, hemoptysis, fever or night sweats. GASTROINTESTINAL: Negative for poor appetite, abdominal pain, heartburn, nausea, vomiting, constipation, or diarrhea. GENITOURINARY: Negative for urgency, frequency, dysuria, nocturia. MUSCULOSKELETAL: Negative for pain, swelling. NEUROLOGIC/PSYCHIATRIC: Negative for anxiety, depression. ALLERGY/IMMUNOLOGIC: Negative for skin rash, bleeding tendency. All review of systems reviewed with the patient, but negative except as mentioned in the HPI. PAST MEDICAL HISTORY: 1. Nonischemic cardiomyopathy with EF 15% to 20%. 2. Chronic systolic and diastolic heart failure. 3. Hypertension. 4. Dyslipidemia. 5. Benign enlargement of prostate. 6. COPD. PAST SURGICAL HISTORY: 1. Cyst removed from right hand. 2. AICD placement. 3. Intestinal surgery. PAST PSYCHIATRIC HISTORY: Anxiety and depression. SOCIAL HISTORY: The patient has a history of marijuana abuse. He denies any current alcohol abuse. He denies any smoking. FAMILY HISTORY: No strong family history of premature coronary artery disease, stroke, or cancer. EMERGENCY ROOM COURSE: Reviewed. Medications given in the emergency room: 1. Dexamethasone 10 mg. 2. Rocephin 2 g. 3. Azithromycin 500 mg. 4. Proventil HFA 2 puffs. CURRENT HOME MEDICATIONS: 1. Lasix 40 mg daily. 2. Aspirin 81 mg daily. 3. Flomax 0.4 mg daily. 4. Amiodarone 100 mg p.o. daily. 5. Breo Ellipta inhalation daily. 6. Ventolin inhaler q.6 hourly p.r.n. 7. Entresto one tablet twice daily. 8. Aspirin 325 mg p.o. daily. 9. Lexapro 10 mg daily. 10. DuoNeb q.6 hourly. 11. [place] 5 one tablet q.4 hourly p.r.n. 12. Protonix 40 mg p.o. daily. 13. Ferrous sulfate 325 mg p.o. daily. ALLERGIES: 1. CODEINE. 2. CYMBALTA. 3. REMERON. 4. NIACIN. PHYSICAL EXAMINATION: VITAL SIGNS: Blood pressure 104/75, pulse 76, respiratory rate 25, temperature 98.9, saturation 96% on room air. Weight 81.6 kg. GENERAL: The patient is currently alert, awake, chronically ill, in no obvious acute distress. HEENT: Head; normocephalic, atraumatic. Eyes; pupils are round and reactive to light. Extraocular muscle intact. 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 ENT; oropharynx within normal limits. Moist mucous membranes. Pallor mucous membranes. No pharyngeal erythema. No exudate. NECK: Elevated JVD noted. No thyromegaly. No carotid bruit. LUNGS: Bibasilar rales noted, air entry reduced at bases, tachypnea noted, no accessory muscles of respiration in use. CARDIAC: S1 and S2 appear regular, systolic murmur noted, no gallop, no rub. ABDOMEN: Soft, bowel sounds present, nontender, nondistended. No organomegaly. No mass. BACK: Unremarkable. No CVA tenderness. EXTREMITIES: Upper extremities, passive movement of all joints normal. Lower extremities; no edema, good distal pulsation. SKIN: No skin rash. HEMATOLOGICAL: No lymphadenopathy. PSYCHIATRIC: Normal affect. SIGNIFICANT LABORATORY DATA: EKG showing pacemaker rhythm. Chest x-ray showing progressive consolidation of lower lobes. CBC: WBC 6.5, hemoglobin 12.2, platelets 201. BMP: Sodium 139, potassium 3.4, chloride 107, carbon dioxide 23, BUN 11, creatinine 1.38, glucose 120, calcium 8.4. LFT: AST 16, ALT 10, alkaline phosphatase 61, albumin 3.7. CK 98, CK-MB was 0.9, troponin I is 0.051, BNP 3413. ASSESSMENT AND PLAN: 1. Bilateral consolidation, suspecting bacterial versus viral. We will do COVID-19 screening test to rule out COVID pneumonia. We will treat with empiric cefepime and doxycycline 100 mg p.o. twice daily. Follow up on culture results. 2. Demand ischemia, type 2 myocardial infarction. We will do serial cardiac enzymes x2 to rule out acute coronary syndrome. Telemetry admission. Continue aspirin 325 mg p.o. daily. 3. Acute on chronic systolic and diastolic congestive heart failure. The patient has currently relatively low blood pressure. I doubt the patient will tolerate any significant medication, and that is why we will consult Cardiology to consider dobutamine drip on him to improve inotropic function. At this point, we will continue the Lasix 20 mg IV b.i.d. If blood pressure permits, then we will continue with Entresto. We will repeat labs tomorrow. We will monitor input/output chart and replace electrolytes accordingly. 4. Hypokalemia. We will continue to give potassium chloride 40 mEq p.o. one time dose, and we will repeat labs tomorrow including magnesium. 5. Chronic obstructive pulmonary disease exacerbation. We will continue the patient's home inhaler, DuoNeb q.6 hourly, and dexamethasone 6 mg p.o. daily. 6. Chronic kidney disease stage 3. We will monitor renal function. 7. Benign enlargement of prostate. We will continue Flomax 0.4 mg p.o. daily. 8. Chronic anemia. Continue ferrous sulfate 325 mg p.o. daily. 9. Gastroesophageal reflux disease. Continue Protonix 40 mg p.o. daily. 10. Anxiety and depression. Continue Lexapro 10 mg p.o. daily. 11. Deep venous thrombosis prophylaxis, heparin 5000 units subcu twice daily. 12. Gastrointestinal prophylaxis, Protonix 40 mg p.o. daily. CODE STATUS: The patient is full code. DISPOSITION PLAN: Based on clinical course. Plan of care discussed with the patient in detail. Job ID: [id number]
[2020-02-18] MEDS ORDERED: DOBUTamine 500 mg/250 ml 250 ML ONE (17:15)
[2020-02-18] MEDS ORDERED: hydrALAZINE 20 MG/ML VIAL SLOW IVP PRN (17:24)
[2020-02-18] MEDS ORDERED: Loratadine 10 MG TAB PO PRN (17:24)
[2020-02-18] MEDS ORDERED: HYDROcodone/Acetaminophen 5/325 mg Tablet PO PRN (17:24)
[2020-02-18] MEDS ORDERED: Loperamide HCl 2 MG CAP PO PRN ×2 (17:24)
[2020-02-18] MEDS ORDERED: Diabetic Tussin 200 MG/10 ML UDCUP PO PRN (17:24)
[2020-02-18] MEDS ORDERED: Calcium Carbonate 500 MG ChewTAB PO PRN (17:24)
[2020-02-18] MEDS ORDERED: Bisacodyl 10 MG SUPP PR PRN ×2 (17:24)
[2020-02-18] MEDS ORDERED: Cepastat Lozenges 1 LOZ PO PRN (17:24)
[2020-02-18] MEDS ORDERED: Zolpidem Tartrate 5 MG TAB PO PRN (17:24)
[2020-02-18] MEDS ORDERED: Sodium Chloride 0.65% Nasal 44 ML BOT EA NARE PRN (17:24)
[2020-02-18] MEDS ORDERED: Potassium Chloride 20 MEQ TAB PO SCH (17:24)
[2020-02-18] MEDS ORDERED: Senokot S 8.6-50 MG TAB PO PRN (17:24)
[2020-02-18] MEDS ORDERED: DOBUTamine 500 mg/250 ml 250 ML IVPB SCH (17:30)
[2020-02-18 17:55] LABS: Troponin I 0.043 ng/mL (< 0.028)
[2020-02-18 17:57] LABS: SARS-CoV-2 NAA Rapid Test Not Detected (NotDetected)
[2020-02-18] MEDS ORDERED: Potassium Chloride 20 MEQ TAB ONE (18:46)
[2020-02-18] MEDS ORDERED: Acetaminophen 325 MG TAB ONE (20:10)
[2020-02-18] MEDS: Acetaminophen 325 MG TAB PO PRN (20:13)
[2020-02-18 20:17] LABS: Bacteria/HPF None Seen HPF (None Seen); Bilirubin Negative (Negative); Blood, Urine Negative (Negative); Clarity Clear (Clear); Glucose, Urine (Dipstick) Normal (Negative); Ketone, Urine Negative (Negative); Leukocyte Negative Leu/uL (Negative); Nitrite Negative (Negative); Protein, Urine (Dipstick) Negative (Neg-Trace); RBC/HPF 0-3 HPF (0-3); Specific Gravity, Urine 1.015 (1.002-1.036); Squamous Epithelial None Seen HPF (0-3); WBC/HPF 0-3 HPF (0-3)
[2020-02-18 20:38] LABS: Troponin I 0.037 ng/mL (< 0.028)
[2020-02-19] MEDS: Mometasone 200 MCG/Formoterol 5 MCG 120 PUFF INHALER INH SCH ×3 (04:11→19:14)
[2020-02-19] MEDS: Ipratropium Bromide 2.5 ml Neb NEB SCH ×5 (04:12→19:11)
[2020-02-19 04:42] LABS: #Lymphocytes 0.3 thou/uL (1.20-3.40); #Monocytes 0.1 thou/uL (0.11-0.59); #Neutrophils 3.2 thou/uL (1.40-6.50); %Eosinophils 0.2 % (0.0-10.0); %Lymphocytes 8.1 % (21.0-51.0); %Monocytes 3.8 % (0.0-10.0); %Neutrophils 87.9 % (42.0-75.0); Hemoglobin 11.2 g/dL (14.0-18.0); Mean Corpuscular HGB CONC 31.9 g/dL (32.0-36.0); Mean Corpuscular Volume 94.2 fL (78.0-98.0); Mean Platelet Volume 9.9 fL (7.4-10.4); Platelet Count 205 thou/uL (130-400); RBC Distribution Width 11.9 % (11.5-14.5); Red Blood Cell (RBC) Count 3.74 mill/uL (4.70-6.10); White Blood Cell (WBC) Count 3.6 thou/uL (4.8-10.8)
[2020-02-19] MEDS: Cefepime 1 GM in Sodium Chloride 0.9% 100 ML IVPB SCH ×2 (04:49→16:13)
[2020-02-19] MEDS: Doxycycline 100 MG CAP PO SCH ×3 (04:54→21:26)
[2020-02-19] MEDS: Heparin 5,000 UNITS/ML VIAL SC SCH ×3 (04:54→21:26)
[2020-02-19 05:08] LABS: Anion Gap 12 mmol/L (10-20); BUN (Urea Nitrogen) 12 mg/dL (8.4-25.7); Calc. Creatinine Clearance 58 mL/min (70-130); Calcium 8.5 mg/dL (7.8-10.44); Carbon Dioxide 24 mmol/L (23-31); Chloride 105 mmol/L (98-107); Estimated GFR-MDRD 64; Glucose 252 mg/dL (80-115); Magnesium 1.9 mg/dL (1.6-2.6); Potassium 3.6 mmol/L (3.5-5.1); Sodium 137 mmol/L (136-145)
[2020-02-19] MEDS: Furosemide 20 MG/2 ML VIAL SLOW IVP SCH ×2 (05:21→13:14)
[2020-02-19] MEDS: Dexamethasone 4 MG TAB PO SCH (09:39)
[2020-02-19] MEDS: Amiodarone 200 MG TAB PO SCH (09:40)
[2020-02-19] MEDS: Ferrous Sulfate 325 MG TAB PO SCH (09:40)
[2020-02-19] MEDS: Escitalopram Oxalate 10 mg Tablet PO SCH (09:41)
[2020-02-19] MEDS: Aspirin 325 MG TAB PO SCH (09:41)
[2020-02-19] MEDS: Tamsulosin HCl 0.4 MG CAP PO SCH (09:41)
--- NOTE | 2020-02-19 11:07 | PDOC.HOSPP ---
- Subjective Encounter Date: 02/19/20 Encounter Time: 07:00 Subjective: Patient seen and examined bedside today, no overnight event, no new complaint, he is feeling better than yesterday, - Objective Vital Signs & Weight: Vital Signs (12 hours) Temp Pulse Resp BP Pulse Ox 02/19/20 09:37 99 02/19/20 07:24 97.6 F 71 13 109/77 99 02/19/20 06:38 63 12 02/19/20 06:35 63 12 02/19/20 05:15 97.9 F 77 18 110/78 02/19/20 04:13 99 02/19/20 03:00 99 02/19/20 02:05 97.8 F 83 24 H 115/80 99 Weight Weight 174 lb 1.6 oz I&O: 02/18/20 02/19/20 02/20/20 06:59 06:59 06:59 Output Total 600 Balance -600 Result Diagrams: 02/19/20 04:09 02/19/20 04:09 EKG Reviewed by me: Yes Hospitalist ROS - Review of Systems Constitutional: denies: fever, chills, sweats, weakness, malaise, other Respiratory: reports: shortness of breath, SOB with excertion. denies: cough, dry, hemoptysis, pleuritic pain, sputum, wheezing, other Cardiovascular: denies: chest pain, palpitations, orthopnea, paroxysmal noc. dyspnea, edema, light headedness, other Gastrointestinal: denies: nausea, vomiting, abdominal pain, diarrhea, constipation, melena, hematochezia, other Genitourinary: denies: dysuria, frequency, incontinence, hematuria, retention, other Musculoskeletal: denies: neck pain, shoulder pain, arm pain, back pain, hand pain, leg pain, foot pain, other Skin: denies: rash, lesions, kenn, bruising, other - Medication Medications: Active Medications Generic Name Dose Route Start Last Admin Trade Name Freq PRN Reason Stop Dose Admin Acetaminophen 650 mg 02/18/20 17:24 02/18/20 20:13 Tylenol PO 650 mg Q4H PRN Administration Headache/Fever/Mild Pain (1-3) Amiodarone HCl 100 mg 02/19/20 09:00 02/19/20 09:40 Cordarone PO 100 mg DAILY MOOK Administration Aspirin 325 mg 02/19/20 09:00 02/19/20 09:41 Aspirin PO 325 mg DAILY MOOK Administration Dexamethasone 6 mg 02/19/20 08:00 02/19/20 09:39 Decadron PO 6 mg QAM-WM MOOK Administration Doxycycline Hyclate 100 mg 02/18/20 21:00 02/19/20 09:42 Vibramycin PO 100 mg BID MOOK Administration Escitalopram Oxalate 10 mg 02/19/20 09:00 02/19/20 09:41 Lexapro PO 10 mg DAILY MOOK Administration Ferrous Sulfate 325 mg 02/19/20 08:00 02/19/20 09:40 Feosol PO 325 mg QAM-WM [facility] Administration Furosemide 20 mg 02/19/20 06:00 02/19/20 05:21 Lasix SLOW IVP 20 mg 0600,1400 MOOK Administration Heparin Sodium (Porcine) 5,000 units 02/18/20 21:00 02/19/20 09:42 Heparin SC 5,000 units BID MOOK Administration Cefepime HCl 1 gm/ Sodium 100 mls @ 200 mls/hr 02/19/20 03:00 02/19/20 04:49 Chloride IVPB 100 mls 0300,1500 MOOK Administration Ipratropium [place] 2.5 ml 02/18/20 19:00 02/19/20 06:35 Atrovent NEB 2.5 ml [id number] MOOK Administration Mometasone Furoate/Formoterol Fumar 2 puff 02/18/20 18:30 02/19/20 06:38 Dulera 200 Mcg/5 Mcg Inhaler INH 2 puff BID-RT MOOK Administration Pantoprazole Sodium 40 mg 02/19/20 09:00 02/19/20 09:41 Protonix PO 40 mg DAILY MOOK Administration Sacubitril/Valsartan 1 tab 02/18/20 21:00 02/19/20 09:41 Entresto 24 Mg-26 Mg Tablet PO 1 tab BID MOOK Administration Tamsulosin HCl 0.4 mg 02/19/20 09:00 02/19/20 09:41 Flomax PO 0.4 mg DAILY MOOK Administration - Exam General Appearance: NAD, awake alert Eye: PERRL, anicteric sclera ENT: normocephalic atraumatic, no oropharyngeal lesions Neck: supple, symmetric, no thyromegaly, JVD Heart: RRR, no murmur, no gallops, no rubs Respiratory: no wheezes, no ronchi, rales Respiratory - other findings: Basal rales noted Gastrointestinal: soft, non-tender, non-distended, normal bowel sounds Extremities: no cyanosis, no clubbing, no edema Skin: normal turgor, no lesions Neurological: no focal deficits Musculoskeletal: normal tone, normal strength Psychiatric: normal affect, normal behavior Hosp A/P - Plan old records reviewed/req, continue antibiotics, respiratory therapy Assessment Bilateral consolidation community-acquired pneumonia Demand ischemia due to type II myocardial infarction Acute on chronic systolic and diastolic congestive heart failure exacerbation, Nonischemic cardiomyopathy with AICD in place Hypokalemia COPD exacerbation CKD stage III Benign enlargement of prostate Chronic anemia Gastroesophageal reflux disease Anxiety and depression Plan COVID-19 test is negative, patient is on empiric cefepime and doxycycline for pneumonia Troponin remained stable, Continue Lasix, cardiac medication as tolerated based on his hemodynamics Cardiology has been consulted Potassium has been replaced and corrected His TSH is very low so there so I will check free T4 and free T3
[2020-02-19 11:44] LABS: Free T4 (Free Thyroxine) 1.35 ng/dL (0.70-1.48)
--- NOTE | 2020-02-19 13:02 | CON ---
DATE OF CONSULTATION: 02/19/2020 REASON FOR CONSULTATION: Heart failure. PRIMARY CONSUMER MARKETING ANALYST: Dr. Julius Forbes. HISTORY OF PRESENT ILLNESS: Mr. Sandhu is a pleasant, 70-year-old, gentleman, who comes to the hospital for shortness of breath. He has a history of nonischemic cardiomyopathy, EF at around 15% to 20%, AICD was placed in 2018. He admits to eating a little more salt than normal. He has been getting more short of breath in the last few days with PND and orthopnea. He came in and was found to have a very elevated BNP, so he was admitted for heart failure exacerbation, diuresed overnight, and already feeling better, still not quite back to baseline though. PAST MEDICAL HISTORY: 1. Nonischemic cardiomyopathy, EF at 15% to 20%. 2. Hypertension. 3. Hyperlipidemia. 4. BPH. 5. COPD. SURGICAL HISTORY: 1. Cyst removed from right hand. 2. AICD placement in 2018. 3. Hemicolectomy for nonresectable polyp. SOCIAL HISTORY: Multiple different drug uses in the past, thought to be cause for his cardiomyopathy, currently only uses marijuana. No tobacco or alcohol. FAMILY HISTORY: Noncontributory. OUTPATIENT MEDICATIONS: 1. Incruse Ellipta inhalations daily. 2. Tamsulosin. 3. Entresto 24/26 b.i.d. 4. Pantoprazole 40 mg a day. 5. DuoNebs p.r.n. 6. Lasix 30 mg a day p.r.n. 7. Breo Ellipta. 8. Ferrous sulfate. 9. Aspirin 325 a day. 10. Amiodarone 100 mg a day. 11. Ambien p.r.n. ALLERGIES: 1. CODEINE. 2. CYMBALTA. 3. REMERON. 4. NIACIN. REVIEW OF SYSTEMS: A 12-point review of systems was done and was found to be negative other than stated in the history of present illness. PHYSICAL EXAMINATION: VITAL SIGNS: Temperature 97.5, pulse 67, respiratory rate 20, saturating 98% on 2 L nasal cannula, blood pressure 106/77. GENERAL: Awake, alert, and oriented x3, in no distress. HEENT: Normocephalic and atraumatic. NECK: Supple with JVD up to about 12 cm of water. LUNGS: Have mild crackles at bases. CARDIOVASCULAR: S1 and S2. No S3 or S4. There is a grade 2/6 systolic murmur at the right upper sternal border. ABDOMEN: Soft. Positive bowel sounds. EXTREMITIES: No edema. SKIN: Warm and dry. LABORATORY DATA: Laboratory work was reviewed. CBC with a white count of 6, hemoglobin of 12, hematocrit of 36, and platelet count of 201. Chemistries were unremarkable. Creatinine was 1.38 on admission, 1.35 after diuresis. Troponin was 0.05, 0.04, 0.03, consistent with demand ischemia. Free T4 and free T3 were normal. TSH was low. UA was unremarkable. COVID PCR was not detected. Chest x-ray on admission, bilateral lower lobe consolidation versus edema. ASSESSMENT: 1. Acute on chronic systolic heart failure. 2. Substance abuse. 3. Presence of an AICD. PLAN: 1. Continue IV diuresis. 2. IV antibiotics per primary team. 3. Continue home regimen with amiodarone and aspirin as well as sacubitril. 4. No obvious AICD therapies delivered as far as he can tell. We will interrogate defibrillator. Thank you for letting us participate in the care of your patient. Dr. James , his primary pcat instructor will follow up in the morning. Job ID: [id number] [facility]
[2020-02-19 13:47] LABS: Amphetamine Not Detected (NotDetected); Benzodiazepine Screen Not Detected (NotDetected); Cocaine Metabolite Screen Not Detected (NotDetected); Medtox Reader # READER 4; Methadone Not Detected (NotDetected); Methamphetamine Not Detected (NotDetected); Opiate Screen Not Detected (NotDetected); Phencyclidine (PCP) Not Detected (NotDetected); THC/Cannabinoid Screen Detected (NotDetected); Tricyclic Screen Not Detected (NotDetected)
[2020-02-19 13:48] LABS: Barbiturates Screen Not Detected (NotDetected); Medtox Control Line Valid? VALID (VALID); Oxycodone Screen Not Detected (NotDetected)
[2020-02-19] MEDS: Acetaminophen 325 MG TAB PO PRN (21:26)
[2020-02-19] MEDS: Metoclopramide HCl 10 MG/2 ML VIAL IVP PRN (21:29)
[2020-02-20] MEDS: Ipratropium Bromide 2.5 ml Neb NEB SCH ×4 (00:13→18:18)
[2020-02-20] MEDS: Cefepime 1 GM in Sodium Chloride 0.9% 100 ML IVPB SCH ×2 (03:41→15:08)
[2020-02-20] MEDS: Furosemide 20 MG/2 ML VIAL SLOW IVP SCH ×2 (05:55→13:46)
[2020-02-20] MEDS: Mometasone 200 MCG/Formoterol 5 MCG 120 PUFF INHALER INH SCH ×2 (06:47→18:13)
[2020-02-20] MEDS: Escitalopram Oxalate 10 mg Tablet PO SCH (09:26)
[2020-02-20] MEDS: Amiodarone 200 MG TAB PO SCH (09:26)
[2020-02-20] MEDS: Dexamethasone 4 MG TAB PO SCH (09:26)
[2020-02-20] MEDS: Ferrous Sulfate 325 MG TAB PO SCH (09:26)
[2020-02-20] MEDS: Tamsulosin HCl 0.4 MG CAP PO SCH (09:26)
[2020-02-20] MEDS: Heparin 5,000 UNITS/ML VIAL SC SCH ×2 (09:27→21:18)
[2020-02-20] MEDS: Aspirin 325 MG TAB PO SCH (09:27)
[2020-02-20] MEDS: Doxycycline 100 MG CAP PO SCH ×2 (09:27→21:17)
--- NOTE | 2020-02-20 10:21 | PDOC.HOSPP ---
- Subjective Encounter Date: 02/20/20 Encounter Time: 07:10 Subjective: Patient seen and examined bedside today, patient feeling much better, he is still on 2 to 3 L nasal cannula oxygen, - Objective Vital Signs & Weight: Vital Signs (12 hours) Temp Pulse Resp BP Pulse Ox 02/20/20 07:20 93 L 02/20/20 07:00 97.8 F 75 18 97/68 93 L 02/20/20 03:39 97.8 F 68 18 105/79 98 02/20/20 00:13 96 02/19/20 23:49 97.8 F 69 22 H 94/69 96 Weight Weight 176 lb 8 oz I&O: 02/19/20 02/20/20 02/21/20 06:59 06:59 06:59 Intake Total 720 780 Output Total 1300 1060 Balance -580 -280 Result Diagrams: 02/19/20 04:09 02/19/20 04:09 EKG Reviewed by me: Yes Hospitalist ROS - Review of Systems Constitutional: denies: fever, chills, sweats, weakness, malaise, other Eyes: denies: pain, vision change, conjunctivae inflammation, eyelid inflammation, redness, other ENT: denies: ear pain, ear discharge, nose pain, nose discharge, nose congestion , mouth pain, mouth swelling, throat pain, throat swelling, other Respiratory: reports: shortness of breath, SOB with excertion. denies: cough, dry, hemoptysis, pleuritic pain, sputum, wheezing, other Cardiovascular: denies: chest pain, palpitations, orthopnea, paroxysmal noc. dyspnea, edema, light headedness, other Gastrointestinal: denies: nausea, vomiting, abdominal pain, diarrhea, constipation, melena, hematochezia, other Genitourinary: denies: dysuria, frequency, incontinence, hematuria, retention, other Musculoskeletal: denies: neck pain, shoulder pain, arm pain, back pain, hand pain, leg pain, foot pain, other - Medication Medications: Active Medications Generic Name Dose Route Start Last Admin Trade Name Freq PRN Reason Stop Dose Admin Acetaminophen 650 mg 02/18/20 17:24 02/19/20 21:26 Tylenol PO 650 mg Q4H PRN Administration Headache/Fever/Mild Pain (1-3) Amiodarone HCl 100 mg 02/19/20 09:00 02/20/20 09:26 Cordarone PO 100 mg DAILY MOOK Administration Aspirin 325 mg 02/19/20 09:00 02/20/20 09:27 Aspirin PO 325 mg DAILY MOOK Administration Dexamethasone 6 mg 02/19/20 08:00 02/20/20 09:26 Decadron PO 6 mg QAM-WM MOOK Administration Doxycycline Hyclate 100 mg 02/18/20 21:00 02/20/20 09:27 Vibramycin PO 100 mg BID MOOK Administration Escitalopram Oxalate 10 mg 02/19/20 09:00 02/20/20 09:26 Lexapro PO 10 mg DAILY MOOK Administration Ferrous Sulfate 325 mg 02/19/20 08:00 02/20/20 09:26 Feosol PO 325 mg QAM-WM [facility] Administration Furosemide 20 mg 02/19/20 06:00 02/20/20 05:55 Lasix SLOW IVP 20 mg 0600,1400 MOOK Administration Heparin Sodium (Porcine) 5,000 units 02/18/20 21:00 02/20/20 09:27 Heparin SC 5,000 units BID [facility] Administration Cefepime HCl 1 gm/ Sodium 100 mls @ 200 mls/hr 02/19/20 03:00 02/20/20 03:41 Chloride IVPB 100 mls 0300,1500 MOOK Administration Ipratropium [place] 2.5 ml 02/18/20 19:00 02/20/20 06:48 Atrovent NEB Not Given [id number] [facility] Metoclopramide HCl 5 mg 02/18/20 17:24 02/19/20 21:29 Reglan IVP 5 mg Q6H PRN Administration Nausea/Vomiting Mometasone Furoate/Formoterol Fumar 2 puff 02/18/20 18:30 02/20/20 06:47 Dulera 200 Mcg/5 Mcg Inhaler INH 2 puff BID-RT [facility] Administration Pantoprazole Sodium 40 mg 02/19/20 09:00 02/20/20 09:26 Protonix PO 40 mg DAILY MOOK Administration Sacubitril/Valsartan 1 tab 02/18/20 21:00 02/20/20 09:26 Entresto 24 Mg-26 Mg Tablet PO 1 tab BID [facility] Administration Tamsulosin HCl 0.4 mg 02/19/20 09:00 08/03/20 09:26 Flomax PO 0.4 mg DAILY MOOK Administration - Exam General Appearance: NAD, awake alert Eye: PERRL, anicteric sclera ENT: normocephalic atraumatic, no oropharyngeal lesions Neck: supple, symmetric, no JVD, no thyromegaly Heart: RRR, no murmur, no gallops, no rubs Respiratory: no wheezes, no ronchi Respiratory - other findings: Bibasilar rales reduced Gastrointestinal: soft, non-tender, non-distended, normal bowel sounds Extremities: no cyanosis, no clubbing, no edema Skin: normal turgor, no lesions Neurological: no focal deficits Musculoskeletal: normal tone, normal strength Psychiatric: normal affect, normal behavior Hosp A/P - Plan old records reviewed/req Assessment Bilateral consolidation community-acquired pneumonia Demand ischemia due to type II myocardial infarction Acute on chronic systolic and diastolic congestive heart failure exacerbation, Nonischemic cardiomyopathy with AICD in place Hypokalemia COPD exacerbation CKD stage III Benign enlargement of prostate Chronic anemia Gastroesophageal reflux disease Anxiety and depression Plan Continue cefepime and doxycycline empirically Continue amiodarone Continue Lasix Continue respiratory therapy Continue Decadron Echocardiography reviewed consistent with 10 to 15% EF, cardiology will follow up on this patient and decide further treatment plan If patient continues to do well then expecting discharge in next 24 to 48 hours.
[2020-02-20 10:34] VITALS: BMI 22.9
[2020-02-20] MEDS: Metoclopramide HCl 10 MG/2 ML VIAL IVP PRN (21:17)
[2020-02-20] MEDS: Acetaminophen 325 MG TAB PO PRN (21:25)
[2020-02-21] MEDS: Ipratropium Bromide 2.5 ml Neb NEB SCH ×2 (00:07→07:01)
[2020-02-21] MEDS: Cefepime 1 GM in Sodium Chloride 0.9% 100 ML IVPB SCH (04:15)
[2020-02-21] MEDS: Furosemide 20 MG/2 ML VIAL SLOW IVP SCH (06:23)
[2020-02-21] MEDS: Mometasone 200 MCG/Formoterol 5 MCG 120 PUFF INHALER INH SCH (07:00)
[2020-02-21 07:23] VITALS: TEMP 97.3
--- NOTE | 2020-02-21 08:40 | PRG ---
DATE OF SERVICE: 02/21/2020 SUBJECTIVE: Mr. Sandhu states he is feeling fine. No chest pain. He is not short of breath. OBJECTIVE: VITAL SIGNS: Blood pressure 109/76, pulse 70 and it is regular. LUNGS: Clear anteriorly and posteriorly. CARDIAC: Normal S1, normal S2. There is no murmur, rub, or gallop. ABDOMEN: Soft, nontender. PERTINENT LABORATORY DATA: Creatinine on the 2nd was 1.35. ASSESSMENT: 1. Nonischemic cardiomyopathy. 2. Congestive heart failure systolic, acute on chronic, improved. 3. Renal insufficiency. 4. History of arrhythmias. PLAN: 1. Okay with me to be released home. 2. Clinically stable. 3. Continue current medical regimen. Was unable to tolerate beta blockers previously due to hypotension. Job ID: [id number]
[2020-02-21] MEDS ORDERED: Aspirin Chewable 81 MG TAB PO SCH (09:00)
[2020-02-21] MEDS: Ferrous Sulfate 325 MG TAB PO SCH (09:23)
[2020-02-21] MEDS: Amiodarone 200 MG TAB PO SCH (09:23)
[2020-02-21] MEDS: Dexamethasone 4 MG TAB PO SCH (09:23)
[2020-02-21] MEDS: Doxycycline 100 MG CAP PO SCH (09:24)
[2020-02-21] MEDS: Tamsulosin HCl 0.4 MG CAP PO SCH (09:24)
[2020-02-21] MEDS: Escitalopram Oxalate 10 mg Tablet PO SCH (09:24)
[2020-02-21] MEDS: Heparin 5,000 UNITS/ML VIAL SC SCH (09:24)
--- NOTE | 2020-02-21 09:43 | PDOC.HOSPP ---
- Subjective Encounter Date: 02/21/20 Encounter Time: 07:20 Subjective: Patient seen and examined. No new complaints. No overnight events - Objective Vital Signs & Weight: Vital Signs (12 hours) Temp Pulse Resp BP BP Pulse Ox 02/21/20 07:30 95 02/21/20 07:21 97.3 F L 69 18 109/76 96 02/21/20 03:36 98.0 F 68 16 106/70 99 02/21/20 00:10 100 02/20/20 23:12 98.1 F 70 24 H 107/78 98 Weight Admit Weight 176 lb 1.6 oz Weight 174 lb 14.4 oz I&O: 02/20/20 02/21/20 02/22/20 06:59 06:59 06:59 Intake Total 720 1620 300 Output Total 1300 2585 200 Balance -580 -965 100 Result Diagrams: 02/19/20 04:09 02/19/20 04:09 EKG Reviewed by me: Yes Hospitalist ROS - Review of Systems ENT: denies: ear pain, ear discharge, nose pain, nose discharge, nose congestion , mouth pain, mouth swelling, throat pain, throat swelling, other Respiratory: denies: cough, dry, shortness of breath, hemoptysis, SOB with excertion, pleuritic pain, sputum, wheezing, other Cardiovascular: denies: chest pain, palpitations, orthopnea, paroxysmal noc. dyspnea, edema, light headedness, other Gastrointestinal: denies: nausea, vomiting, abdominal pain, diarrhea, constipation, melena, hematochezia, other Genitourinary: denies: dysuria, frequency, incontinence, hematuria, retention, other Musculoskeletal: denies: neck pain, shoulder pain, arm pain, back pain, hand pain, leg pain, foot pain, other - Medication Medications: Active Medications Generic Name Dose Route Start Last Admin Trade Name Freq PRN Reason Stop Dose Admin Acetaminophen 650 mg 02/18/20 17:24 02/20/20 21:25 Tylenol PO 650 mg Q4H PRN Administration Headache/Fever/Mild Pain (1-3) Amiodarone HCl 100 mg 02/19/20 09:00 02/21/20 09:23 Cordarone PO 100 mg DAILY MOOK Administration Aspirin 81 mg 02/21/20 09:00 02/21/20 09:24 Aspirin Chewable PO 81 mg DAILY MOOK Administration Dexamethasone 6 mg 02/19/20 08:00 02/21/20 09:23 Decadron PO 6 mg QAM-WM MOOK Administration Doxycycline Hyclate 100 mg 02/18/20 21:00 02/21/20 09:24 Vibramycin PO 100 mg BID MOOK Administration Escitalopram Oxalate 10 mg 02/19/20 09:00 02/21/20 09:24 Lexapro PO 10 mg DAILY MOOK Administration Ferrous Sulfate 325 mg 02/19/20 08:00 02/21/20 09:23 Feosol PO 325 mg QAM-WM MOOK Administration Furosemide 20 mg 02/19/20 06:00 02/21/20 06:23 Lasix SLOW IVP 20 mg 0600,1400 [facility] Administration Heparin Sodium (Porcine) 5,000 units 02/18/20 21:00 02/21/20 09:24 Heparin SC 5,000 units BID MOOK Administration Cefepime HCl 1 gm/ Sodium 100 mls @ 200 mls/hr 02/19/20 03:00 02/21/20 04:15 Chloride IVPB 100 mls 0300,1500 [facility] Administration Ipratropium [place] 2.5 ml 02/18/20 19:00 02/21/20 07:01 Atrovent NEB Not Given [id number] [facility] Metoclopramide HCl 5 mg 02/18/20 17:24 02/20/20 21:17 Reglan IVP 5 mg Q6H PRN Administration Nausea/Vomiting Mometasone Furoate/Formoterol Fumar 2 puff 02/18/20 18:30 02/21/20 07:00 Dulera 200 Mcg/5 Mcg Inhaler INH 2 puff BID-RT [facility] Administration Pantoprazole Sodium 40 mg 02/19/20 09:00 02/21/20 09:24 Protonix PO 40 mg DAILY [facility] Administration Sacubitril/Valsartan 1 tab 02/18/20 21:00 02/20/20 21:17 Entresto 24 Mg-26 Mg Tablet PO 1 tab BID [facility] Administration Tamsulosin HCl 0.4 mg 02/19/20 09:00 02/21/20 09:24 Flomax PO 0.4 mg DAILY MOOK Administration - Exam General Appearance: NAD, awake alert Eye: PERRL, anicteric sclera ENT: normocephalic atraumatic, no oropharyngeal lesions Neck: supple, symmetric, no JVD, no thyromegaly Heart: RRR, no murmur, no gallops, no rubs Respiratory: CTAB, no wheezes, no rales, no ronchi Gastrointestinal: soft, non-tender, non-distended, normal bowel sounds Extremities: no cyanosis, no clubbing Skin: normal turgor, no lesions Neurological: no focal deficits Musculoskeletal: normal tone, normal strength Psychiatric: normal affect, normal behavior Hosp A/P - Plan old records reviewed/req Assessment Bilateral consolidation community-acquired pneumonia Demand ischemia due to type II myocardial infarction Acute on chronic systolic and diastolic congestive heart failure exacerbation, Nonischemic cardiomyopathy with AICD in place Hypokalemia COPD exacerbation CKD stage III Benign enlargement of prostate Chronic anemia Gastroesophageal reflux disease Anxiety and depression Plan Today we will change to Lasix 20 mg p.o. twice daily Doxycycline for 5 more days Cardiology cleared him for discharge Medically stable for discharge
[2020-02-21 09:52] VITALS: BP 107/66
--- NOTE | 2020-02-21 11:30 | DIS ---
DATE OF ADMISSION: 02/18/2020 DATE OF DISCHARGE: 02/21/2020 PRIMARY CARE PHYSICIAN: Dr. Humberto Rae. DISCHARGE DISPOSITION: Home. PRIMARY DISCHARGE DIAGNOSES: 1. Fbpjz-th-qkvdyng respiratory failure with hypoxia. 2. Yfngd-lh-yyzayca obstructive pulmonary disease exacerbation. 3. Gpfpw-dn-gqxhcwy systolic and diastolic congestive heart failure. 4. Pneumonia, community acquired. SECONDARY DISCHARGE DIAGNOSES: 1. Known ischemic cardiomyopathy. 2. Paroxysmal atrial fibrillation. 3. Chronic obstructive pulmonary disease. 4. Chronic systolic and diastolic heart failure. 5. Medication noncompliance. 6. Normocytic normochromic anemia. 7. Chronic kidney disease, stage 2. 8. Demand ischemia, type 2. 9. Marijuana abuse. PRIMARY PROCEDURE/OPERATION: None. RADIOLOGICAL INVESTIGATION: 1. Chest x-ray on admission showed pulmonary vascular congestion and consolidation of lower lobe. 2. Echocardiography showed ejection fraction 10% to 15%, diastolic dysfunction, moderate aortic regurgitation, and pulmonary hypertension. SIGNIFICANT LABORATORY DATA: WBC 3.6, hemoglobin 11.2, platelet 205. Sodium 137, potassium 3.6, BUN 12, creatinine 1.35, calcium 8.5, magnesium 1.9. Troponin 0.037. Thyroid function test unremarkable. Urine drug screen positive for cannabinoids. COVID 19 test came back negative. DISCHARGE MEDICATIONS: 1. DuoNeb q.4 hourly. 2. Amiodarone 100 mg p.o. daily. 3. Aspirin 325 mg p.o. daily. 4. Doxycycline 100 mg twice daily for 5 days. 5. Ferrous sulfate 325 mg p.o. daily. 6. Breo Ellipta 1 inhalation daily. 7. Lasix 20 mg b.i.d. 8. Protonix 40 mg p.o. daily. 9. Entresto 1 tablet twice daily. 10. Flomax 0.4 mg p.o. daily. 11. Incruse Ellipta 1 inhalation daily. 12. Ambien 5 mg p.o. at bedtime. 13. Coreg 3.125 mg half tablet twice daily. 14. Decadrom 4 mg po daily for 5 days CONTRAINDICATION: None. CODE STATUS: Full code. INPATIENT CHIEF ARSON DIVISION: Cardiology group was consulted while in hospital. TEST RESULTS PENDING ON DISCHARGE: None. DISCHARGE PLAN: Post hospital, the patient will follow up with Cardiology. HOSPITAL COURSE: This is a 70-year-old male who was admitted by me. Please see my HPI for further details. The patient was having increasing shortness of breath. In the emergency room, chest x-ray showed pulmonary vascular congestion and bilateral consolidation and that is why we did a zurita-19 test, which came back negative. While in the hospital, he was given cefepime and doxycycline and on discharge, we changed to doxycycline. He was also having increasing shortness of breath and that is why we started on the Lasix and the patient's condition significantly improved. Cardiology evaluated this patient while in the hospital and Cardiology cleared him for discharge. I have seen and examined the patient at bedside today. Please see my progress note from today for more details. All new medication prescription sent to his pharmacy. Job ID: [id number] MTDD
== END 2020-02-21 10:58 | disposition home health service (06) | DRG 280 ==
LOC: ERS 14:02 → ERHOLD 17:02 → 2SE 02-19 02:15
PROVIDERS: ADMIT Internal Medicine; ATTEND Internal Medicine
DX: I13.0 Hypertensive heart and chronic kidney disease with heart failure and stage 1 through stage 4 chronic kidney disease, or unspecified chronic kidney disease (principal); J96.21 Acute and chronic respiratory failure with hypoxia; I21.A1 Myocardial infarction type 2; I50.43 Acute on chronic combined systolic (congestive) and diastolic (congestive) heart failure; J18.9 Pneumonia, unspecified organism; J44.1 Chronic obstructive pulmonary disease with (acute) exacerbation; J44.0 Chronic obstructive pulmonary disease with (acute) lower respiratory infection; Z20.828 Contact with and (suspected) exposure to other viral communicable diseases; I25.5 Ischemic cardiomyopathy; I48.0 Paroxysmal atrial fibrillation; D63.1 Anemia in chronic kidney disease; K21.9 Gastro-esophageal reflux disease without esophagitis; E87.6 Hypokalemia; N18.3 Chronic kidney disease, stage 3 (moderate); N40.0 Benign prostatic hyperplasia without lower urinary tract symptoms; E78.00 Pure hypercholesterolemia, unspecified; I42.8 Other cardiomyopathies; F12.10 Cannabis abuse, uncomplicated; I27.20 Pulmonary hypertension, unspecified; F41.9 Anxiety disorder, unspecified; F32.9 Major depressive disorder, single episode, unspecified; Z91.14 Patient's other noncompliance with medication regimen; Z79.82 Long term (current) use of aspirin; Z79.51 Long term (current) use of inhaled steroids; Z79.899 Other long term (current) drug therapy; Z88.1 Allergy status to other antibiotic agents; Z88.5 Allergy status to narcotic agent; Z88.8 Allergy status to other drugs, medicaments and biological substances; Z95.810 Presence of automatic (implantable) cardiac defibrillator; Z87.891 Personal history of nicotine dependence
CPT/HCPCS: 36415; 71045; 74022; 80048; 80053; 80306; 81001; 82550; 82553; 83735; 83880; 84439; 84443; 84481; 84484; 84550; 85025; 87040; 93005; 93306; 93798; 94640; 94664; 96361; 96365; 96366; 96367; 96374; 96375; J0456; J0692; J0696; J1100; J1250; J1644; J1940; J2405; J2765; J3490; J8540; U0002

== ENCOUNTER 2020-03-16 21:40 | Emergency (ER) | payer MEDICARE, MEDICAID ==
[2020-03-16 22:58] LABS: Hemoglobin 13.4 g/dL (14.0-18.0); Mean Corpuscular HGB CONC 32.1 g/dL (32.0-36.0); Mean Corpuscular Hemoglobin 31.8 pg (27.0-31.0); Mean Corpuscular Volume 99.3 fL (78.0-98.0); Mean Platelet Volume 9.6 fL (7.4-10.4); Platelet Count 200 thou/uL (130-400); RBC Distribution Width 13.5 % (11.5-14.5); Red Blood Cell (RBC) Count 4.21 mill/uL (4.70-6.10); White Blood Cell (WBC) Count 6.7 thou/uL (4.8-10.8)
[2020-03-16 23:13] LABS: ALT (SGPT) 24 U/L (8-55); AST (SGOT) 38 U/L (5-34); Albumin 3.8 g/dL (3.4-4.8); Alkaline Phosphatase 79 U/L (40-110); Anion Gap 15 mmol/L (10-20); BUN (Urea Nitrogen) 15 mg/dL (8.4-25.7); Bilirubin, Total 0.7 mg/dL (0.2-1.2); Calc. Creatinine Clearance 0 mL/min (70-130); Calcium 8.9 mg/dL (7.8-10.44); Carbon Dioxide 20 mmol/L (23-31); Chloride 105 mmol/L (98-107); Estimated GFR-MDRD 43; Glucose 89 mg/dL (80-115); Potassium 4.7 mmol/L (3.5-5.1); Protein, Total 7.8 g/dL (5.8-8.1); Sodium 135 mmol/L (136-145)
[2020-03-16 23:23] LABS: Lymphocytes 23 % (21-51); MDiff Complete? YES; Monocytes 12 % (0-10); Neutrophil 65 % (42-75)
[2020-03-16 23:29] LABS: CKMB 1.2 ng/mL (0-6.6)
--- NOTE | 2020-03-17 07:47 | RAD ---
PORTABLE CHEST: Date: 03/16/2020 PROVIDED CLINICAL HISTORY: Dyspnea. FINDINGS: Comparison with 02/18/2020. Cardiac and mediastinal silhouette is unchanged in appearance. Left subclavian cardiac pacing device is redemonstrated in similar position. Vascular calcifications again noted involving the aortic arch. Interval improvement in air space disease at the right lung base. Persistent bibasilar probable subs egmental atelectatic change. No pleural fluid or pneumothorax apparent. IMPRESSION: No definite evidence for an acute cardiopulmonary process. POS: DEVON
== END 2020-03-17 00:53 | disposition home or self-care (01) ==
LOC: ERS 21:40
DX: I95.9 Hypotension, unspecified (principal); E78.00 Pure hypercholesterolemia, unspecified; I11.0 Hypertensive heart disease with heart failure; I50.9 Heart failure, unspecified; E78.5 Hyperlipidemia, unspecified; J44.9 Chronic obstructive pulmonary disease, unspecified; F41.9 Anxiety disorder, unspecified; F17.210 Nicotine dependence, cigarettes, uncomplicated; Z79.82 Long term (current) use of aspirin; Z79.899 Other long term (current) drug therapy
CPT/HCPCS: 71045; 80053; 82553; 83880; 84484; 85025; 93005

== ENCOUNTER 2020-05-22 17:40 | Emergency (ER) | payer MEDICARE, MEDICAID ==
[2020-05-22 18:04] LABS: #Eosinphils 0.1 thou/uL (0.0-0.7); #Lymphocytes 1.1 thou/uL (1.20-3.40); #Monocytes 0.4 thou/uL (0.11-0.59); #Neutrophils 2.8 thou/uL (1.40-6.50); %Basophils 0.9 % (0.0-1.0); %Eosinophils 1.2 % (0.0-10.0); %Lymphocytes 25.3 % (21.0-51.0); %Monocytes 9.5 % (0.0-10.0); %Neutrophils 63.1 % (42.0-75.0); Hemoglobin 13.5 g/dL (14.0-18.0); Mean Corpuscular HGB CONC 32.3 g/dL (32.0-36.0); Mean Corpuscular Hemoglobin 31.3 pg (27.0-31.0); Mean Corpuscular Volume 96.9 fL (78.0-98.0); Mean Platelet Volume 9.5 fL (7.4-10.4); Platelet Count 150 thou/uL (130-400); RBC Distribution Width 11.9 % (11.5-14.5); Red Blood Cell (RBC) Count 4.31 mill/uL (4.70-6.10); White Blood Cell (WBC) Count 4.4 thou/uL (4.8-10.8)
[2020-05-22 18:26] LABS: ALT (SGPT) 26 U/L (8-55); AST (SGOT) 28 U/L (5-34); Alkaline Phosphatase 65 U/L (40-110); Anion Gap 18 mmol/L (10-20); BUN (Urea Nitrogen) 15 mg/dL (8.4-25.7); Bilirubin, Total 0.8 mg/dL (0.2-1.2); CK (CPK) 145 U/L (30-200); Calc. Creatinine Clearance 0 mL/min (70-130); Calcium 8.5 mg/dL (7.8-10.44); Carbon Dioxide 22 mmol/L (23-31); Chloride 105 mmol/L (98-107); Estimated GFR-MDRD 45; Globulin 2.9 g/dL (2.4-3.5); Glucose 121 mg/dL (80-115); Potassium 3.8 mmol/L (3.5-5.1); Protein, Total 6.9 g/dL (5.8-8.1); Sodium 141 mmol/L (136-145)
[2020-05-22 18:47] LABS: CKMB 1.7 ng/mL (0-6.6)
--- NOTE | 2020-05-26 11:54 | EKG ---
Test Reason : Blood Pressure : / mmHG Vent. Rate : 070 BPM Atrial Rate : 070 BPM P-R Int : 118 ms QRS Dur : 172 ms QT Int : 472 ms P-R-T Axes : 102 242 019 degrees QTc Int : 509 ms Atrial-sensed ventricular-paced rhythm Abnormal ECG Confirmed by CLARKE BENITEZ M.D. ([id number]), newspaper photo editor TOMY NDIAYE ([id number]) on 05/26/2020 11:54:28 AM Referred By: Confirmed By:CLARKE BENITEZ M.D.
== END 2020-05-22 20:46 | disposition home or self-care (01) ==
LOC: ERS 17:40
DX: I95.9 Hypotension, unspecified (principal); I11.0 Hypertensive heart disease with heart failure; I50.9 Heart failure, unspecified; E78.5 Hyperlipidemia, unspecified; E78.00 Pure hypercholesterolemia, unspecified; J44.9 Chronic obstructive pulmonary disease, unspecified; F41.9 Anxiety disorder, unspecified; F17.210 Nicotine dependence, cigarettes, uncomplicated; Z79.899 Other long term (current) drug therapy; Z79.82 Long term (current) use of aspirin; Z79.51 Long term (current) use of inhaled steroids
CPT/HCPCS: 80053; 82550; 82553; 84484; 85025; 93005

== ENCOUNTER 2020-06-03 19:30 | Outpatient (CLI) | payer MEDICARE, MEDICAID | END 2020-06-03 19:31 | disposition home or self-care (01) | LOC: SLEEPLAB 19:30 | PROVIDERS: ATTEND Family Medicine | DX: G47.33 Obstructive sleep apnea (adult) (pediatric) (principal); R53.83 Other fatigue; G31.84 Mild cognitive impairment of uncertain or unknown etiology; R06.83 Snoring; J44.9 Chronic obstructive pulmonary disease, unspecified; I50.9 Heart failure, unspecified; F32.9 Major depressive disorder, single episode, unspecified; G47.31 Primary central sleep apnea | CPT/HCPCS: 95811 ==

== ENCOUNTER 2020-06-07 15:34 | Emergency (ER) | payer MEDICARE, OTHER ==
[2020-06-07 22:57] LABS: SARS-CoV-2 MS2 Positive; SARS-CoV-2 N Gene Negative; SARS-CoV-2 S Gene Negative; SARS-CoV-2 by NAA Not Detected (NotDetected); SARS-CoV-2 orf1ab Negative
== END 2020-06-07 16:03 | disposition home or self-care (01) ==
LOC: ERS 15:34
DX: Z20.828 Contact with and (suspected) exposure to other viral communicable diseases (principal)
CPT/HCPCS: 99283; U0003; 87635

== ENCOUNTER 2020-06-29 09:09 | Emergency (ER) | payer MEDICARE, MEDICAID ==
--- NOTE | 2020-06-29 09:32 | RAD ---
XR Chest 1 View Portable HISTORY: Dyspnea COMPARISON: 04/13/2020 FINDINGS: The heart size is enlarged. Left-sided defibrillator device remains in place. The aorta is tortuous. Chronic parenchymal changes are again seen. No pneumothoraces, lobar consolidation or pleural effusions are identified. IMPRESSION: No radiographic evidence of acute cardiopulmonary process.
[2020-06-29 10:15] LABS: #Eosinphils 0.1 thou/uL (0.0-0.7); #Monocytes 0.4 thou/uL (0.11-0.59); #Neutrophils 3.1 thou/uL (1.40-6.50); %Basophils 0.9 % (0.0-1.0); %Eosinophils 1.8 % (0.0-10.0); %Lymphocytes 21.9 % (21.0-51.0); %Monocytes 9.1 % (0.0-10.0); %Neutrophils 66.3 % (42.0-75.0); Hemoglobin 13.1 g/dL (14.0-18.0); Mean Corpuscular HGB CONC 31.8 g/dL (32.0-36.0); Mean Corpuscular Hemoglobin 31.9 pg (27.0-31.0); Mean Platelet Volume 10.4 fL (7.4-10.4); Platelet Count 156 thou/uL (130-400); RBC Distribution Width 12.6 % (11.5-14.5); White Blood Cell (WBC) Count 4.7 thou/uL (4.8-10.8)
[2020-06-29 10:37] LABS: ALT (SGPT) 15 U/L (8-55); AST (SGOT) 21 U/L (5-34); Albumin 3.8 g/dL (3.4-4.8); Alkaline Phosphatase 64 U/L (40-110); Anion Gap 16 mmol/L (10-20); BUN (Urea Nitrogen) 16 mg/dL (8.4-25.7); CK (CPK) 153 U/L (30-200); Calc. Creatinine Clearance 0 mL/min (70-130); Calcium 8.4 mg/dL (7.8-10.44); Carbon Dioxide 21 mmol/L (23-31); Chloride 107 mmol/L (98-107); Globulin 3.1 g/dL (2.4-3.5); Glucose 140 mg/dL (80-115); Potassium 3.8 mmol/L (3.5-5.1); Protein, Total 6.9 g/dL (5.8-8.1); Sodium 140 mmol/L (136-145)
[2020-06-29] MEDS ORDERED: Furosemide 40 MG/4 ML VIAL ONE (11:40)
[2020-06-29] MEDS ORDERED: methylPREDNISolone Sod Succ/PF 125 MG/2 ML VIAL ONE (11:40)
[2020-06-29] MEDS ORDERED: Albuterol 200 PUFF (6.7GM INHALER) ONE (11:43)
== END 2020-06-29 13:20 | disposition home or self-care (01) ==
LOC: ERS 09:09
DX: I11.0 Hypertensive heart disease with heart failure (principal); I50.9 Heart failure, unspecified; I25.2 Old myocardial infarction; Z86.73 Personal history of transient ischemic attack (TIA), and cerebral infarction without residual deficits; J44.9 Chronic obstructive pulmonary disease, unspecified; Z79.82 Long term (current) use of aspirin; Z79.51 Long term (current) use of inhaled steroids; Z79.899 Other long term (current) drug therapy
CPT/HCPCS: 36415; 71045; 80053; 82550; 83880; 84484; 85025; 93005; 96374; 96375; J1940; J2930

== ENCOUNTER 2020-07-12 15:07 | Emergency (ER) | payer MEDICARE, MEDICAID | END 2020-07-12 19:19 | disposition home or self-care (01) | LOC: ERS 15:07 | DX: J44.9 Chronic obstructive pulmonary disease, unspecified (principal); I11.0 Hypertensive heart disease with heart failure; I50.9 Heart failure, unspecified; I25.2 Old myocardial infarction; Z79.82 Long term (current) use of aspirin; Z79.51 Long term (current) use of inhaled steroids; Z79.899 Other long term (current) drug therapy | CPT/HCPCS: 99283 ==

== ENCOUNTER 2020-07-22 16:47 | Inpatient (IN) | payer MEDICARE, MEDICAID ==
[2020-07-22 18:01] LABS: #Eosinphils 0.1 thou/uL (0.0-0.7); #Monocytes 0.4 thou/uL (0.11-0.59); #Neutrophils 2.7 thou/uL (1.40-6.50); %Basophils 0.1 % (0.0-1.0); %Eosinophils 1.2 % (0.0-10.0); %Lymphocytes 22.9 % (21.0-51.0); %Monocytes 9.5 % (0.0-10.0); %Neutrophils 66.3 % (42.0-75.0); Hemoglobin 12.2 g/dL (14.0-18.0); Mean Corpuscular HGB CONC 32.9 g/dL (32.0-36.0); Mean Corpuscular Hemoglobin 32.1 pg (27.0-31.0); Mean Corpuscular Volume 97.6 fL (78.0-98.0); Mean Platelet Volume 9.2 fL (7.4-10.4); Platelet Count 180 thou/uL (130-400); RBC Distribution Width 12.2 % (11.5-14.5); Red Blood Cell (RBC) Count 3.81 mill/uL (4.70-6.10); White Blood Cell (WBC) Count 4.1 thou/uL (4.8-10.8)
[2020-07-22 18:26] LABS: ALT (SGPT) 12 U/L (8-55); AST (SGOT) 30 U/L (5-34); Albumin 3.9 g/dL (3.4-4.8); Alkaline Phosphatase 61 U/L (40-110); Anion Gap 17 mmol/L (10-20); BUN (Urea Nitrogen) 18 mg/dL (8.4-25.7); Calc. Creatinine Clearance 0 mL/min (70-130); Calcium 8.4 mg/dL (7.8-10.44); Carbon Dioxide 20 mmol/L (23-31); Chloride 109 mmol/L (98-107); Globulin 3.5 g/dL (2.4-3.5); Glucose 140 mg/dL (80-115); Potassium 4.2 mmol/L (3.5-5.1); Protein, Total 7.4 g/dL (5.8-8.1); Sodium 142 mmol/L (136-145)
[2020-07-22 18:29] LABS: Bacteria/HPF None Seen HPF (None Seen); Bilirubin Negative (Negative); Blood, Urine 1+ (Negative); Clarity Clear (Clear); Glucose, Urine (Dipstick) Normal (Negative); Ketone, Urine Negative (Negative); Leukocyte Negative Leu/uL (Negative); Nitrite Negative (Negative); Protein, Urine (Dipstick) Negative (Neg-Trace); Specific Gravity, Urine 1.008 (1.002-1.036); Squamous Epithelial None Seen HPF (0-3); Urobilinogen Normal mg/dL (Less than 2); WBC/HPF 0-3 HPF (0-3); pH, Urine 6.5 (5.0-9.0)
[2020-07-22 18:44] LABS: CKMB 1.8 ng/mL (0-6.6)
--- NOTE | 2020-07-22 19:07 | RAD ---
CHEST ONE VIEW: History: Increasing shortness of breath, Covid positive. Comparison: 06-29-2020 FINDINGS: Left ICD. Minimal cardiomegaly. Patchy increased linear and interstitial markings bilaterally with so me patchy alveolar opacity changes in the right mid and lower lung zones, slightly more prominent in the midlung zone than on the prior 06-29-2020 study. These findings are nonspecific and certainly cou ld represent changes of some congestive heart failure although co-existent Covid pneumonia, particula rly in the right lung, could have a very similar appearance. IMPRESSION: Patchy parenchymal changes, particularly in the mid and lower lung zone region on the right side. Thi s certainly could represent some acute Covid pneumonia showing slight progression from the prior stud y. Stable appearing left chest. POS: RRE
[2020-07-22] MEDS ORDERED: Furosemide 40 MG/4 ML VIAL ONE (19:23)
[2020-07-22] MEDS ORDERED: Aspirin Chewable 81 MG TAB ONE (19:23)
--- NOTE | 2020-07-22 21:32 | PDOC.HHP ---
Hospitalist HPI - History of Present Illness Shortness of breath History of Present Illness: This is a 70-year-old male patient with a history of heart failure with reduced ejection fractionlast EF 10 to 15%, COPD , GERD, stroke, coronary artery disease status post stent, intestinal resection for unclear etiology who presents with shortness of breath of a couple of days duration. Patient notes worsening shortness of breath with orthopnea, abdominal distention but no significant swelling of his feet. Patient has a history of hypertension and heart failure no chest pain adherent to his medications. At presentation his blood pressure was 98/75, pulse 82, temperature 98.6, saturation 96% on room air. His troponin was 0.045, BNP was 2803 from a baseline of thousand and 31, creatinine elevated at 1.66 however around his baseline, WBC 4.1 and chest x-ray showed patchy infiltrations in the mid and lower zone region on the right which was thought could represent Covid pneumonia. His last Covid test was on 06/07/2020 which was negative. Covid test here is pending. He was given aspirin 324 mg and Lasix 80 mg with significant diuresis with some improvement in his symptoms. Hospitalist ROS - Review of Systems Constitutional: denies: fever, chills, sweats, weakness ENT: denies: ear pain, ear discharge, nose pain Respiratory: reports: cough, shortness of breath, SOB with excertion. denies: hemoptysis Cardiovascular: denies: chest pain, palpitations, orthopnea, paroxysmal noc. dyspnea Gastrointestinal: reports: abdominal pain, constipation. denies: nausea, vomiting, diarrhea Genitourinary: denies: dysuria, frequency, incontinence, hematuria Neurological: denies: weakness, numbness, incoordination, change in speech Hospitalist History - Past Medical History Cardiac: reports: CAD, CHF Heme/Onc: reports: Iron deficiency anemia. denies: no pertinent history, Anemia NOS, B12 deficiency, Cancer, Hemochromatosis, Sickle cell disease, Sickle cell trait, Other Psych: reports: Addictions. denies: no pertinent history, Anxiety, Bipolar, Psychosis, Schizophrenia, Other Renal/: reports: Acute renal failure - Past Surgical History Past Surgical History: reports: Other - Social History Smoking Status: Former smoker Alcohol: reports: Rare Drugs: reports: marijuana Living Situation: With Family Activity level: uses cane/walker - Exam General Appearance: awake alert General - other findings: Is mild respiratory distress ENT: normocephalic atraumatic, no oropharyngeal lesions Neck: supple, symmetric, no JVD, no thyromegaly Heart: RRR, no murmur, no gallops, no rubs Respiratory - other findings: Scattered wheezing, adequate air movement bilaterally Gastrointestinal: soft, normal bowel sounds, no guarding, no rigidity, tender to palpation (Mainly epigastric. No rebound tenderness or guarding), distended (Slightly distended) Extremities: no cyanosis, no clubbing, no edema Neurological: cranial nerve grossly intact, no weakness, no focal deficits Psychiatric: normal affect, normal behavior, A&O x 3 Hospitalist Results - Labs Result Diagrams: 07/22/20 17:50 07/22/20 17:02 Lab results: WBC 4.1 thou/uL (4.8-10.8) L 07/22/20 17:50 Hgb 12.2 g/dL (14.0-18.0) L 07/22/20 17:50 Hct 37.2 % (42.0-52.0) L 07/22/20 17:50 MCV 97.6 fL (78.0-98.0) 07/22/20 17:50 Plt Count 180 thou/uL (130-400) 07/22/20 17:50 Neutrophils % 66.3 % (42.0-75.0) 07/22/20 17:50 Sodium 142 mmol/L (136-145) 07/22/20 17:02 Potassium 4.2 mmol/L (3.5-5.1) 07/22/20 17:02 Chloride 109 mmol/L (98-107) H 07/22/20 17:02 Carbon Dioxide 20 mmol/L (23-31) L 07/22/20 17:02 BUN 18 mg/dL (8.4-25.7) 07/22/20 17:02 Creatinine 1.66 mg/dL (0.7-1.3) H 07/22/20 17:02 Glucose 140 mg/dL (80-115) H 07/22/20 17:02 Calcium 8.4 mg/dL (7.8-10.44) 07/22/20 17:02 Total Bilirubin 1.0 mg/dL (0.2-1.2) 07/22/20 17:02 AST 30 U/L (5-34) 07/22/20 17:02 ALT 12 U/L (8-55) 07/22/20 17:02 Alkaline Phosphatase 61 U/L (40-110) 07/22/20 17:02 CK-MB (CK-2) 1.8 ng/mL (0-6.6) 07/22/20 17:03 Troponin I 0.045 ng/mL (< 0.028) H 07/22/20 20:03 B-Natriuretic Peptide 2803.8 pg/mL (0-100) H 07/22/20 17:50 Serum Total Protein 7.4 g/dL (5.8-8.1) 07/22/20 17:02 Albumin 3.9 g/dL (3.4-4.8) 07/22/20 17:02 Urine Ketones Negative mg/dL (Negative) 07/22/20 17:50 Urine Blood 1+ (Negative) A 07/22/20 17:50 Urine Nitrite Negative (Negative) 07/22/20 17:50 Ur Leukocyte Esterase Negative Neal/uL (Negative) 07/22/20 17:50 Urine RBC 11-20 HPF (0-3) A 07/22/20 17:50 Urine WBC 0-3 HPF (0-3) 07/22/20 17:50 Ur Squamous Epith Cells None Seen HPF (0-3) 07/22/20 17:50 Urine Bacteria None Seen HPF (None Seen) 07/22/20 17:50 Hospitalist H&P A/P - Plan Plan: This a 70-year-old male patient with a history of heart failure with severely reduced EF, status post stent and AICD, bowel resection, COPD who presents with worsening shortness of breath likely secondary to heart failure exacerbation. Acute hypoxic respiratory failure Secondary to heart failure exacerbation also possible COPD exacerbation Covid test however also pending. As needed oxygen Pulmonology consult if worsens. Acute heart failure exacerbation Severely reduced EF of 10 to 15% Diuresis, monitor electrolytes, input output monitoring Cardiology consult in a.m. COPD Possible exacerbation Start some steroids Breathing treatments Monitor Abdominal pain Unclear etiology Has history of bowel resection and GERD We will do a KUB check lipase CT abdomen if indicated. VT prophylaxisLovenox CODE STATUSfull code
--- NOTE | 2020-07-22 22:00 | RAD ---
EXAM: XR Abdomen 1 View/KUB PROVIDED CLINICAL HISTORY: Abdominal pain and distention. COMPARISON: 02/16/2020 FINDINGS: Cardiac AICD leads again overlie the cardiac silhouette. Cardiac silhouette is magnified by projectio n but does appear enlarged. There are linear densities again seen in the right midlung zone and right lung base which were better assessed on chest x-ray obtained earlier today. The bowel gas patte rn is nonspecific. No suspicious calcifications are seen. Right convex rotoscoliosis thoracolumbar spine is again present. IMPRESSION: 1. Nonspecific bowel gas pattern. 2. Persistent linear and patchy interstitial densities right midlung zone and right lung base better evaluated on chest x-ray obtained earlier today.
[2020-07-22] MEDS ORDERED: Sodium Chloride 0.9% (PF) 10 ML VIAL FS PRN (22:15)
[2020-07-22] MEDS ORDERED: Pantoprazole 40 MG VIAL IVP SCH (22:30)
[2020-07-23 00:04] VITALS: BMI 24.1
[2020-07-23] MEDS ORDERED: Pantoprazole 40 MG VIAL ONE (00:04)
[2020-07-23 00:42] LABS: CKMB 1.6 ng/mL (0-6.6)
[2020-07-23 01:38] LABS: SARS-CoV-2 NAA Rapid Test Not Detected (NotDetected)
[2020-07-23 05:18] LABS: #Basophils 0.1 thou/uL (0.0-0.2); #Eosinphils 0.1 thou/uL (0.0-0.7); #Lymphocytes 1.4 thou/uL (1.20-3.40); #Monocytes 0.5 thou/uL (0.11-0.59); #Neutrophils 2.5 thou/uL (1.40-6.50); %Basophils 1.3 % (0.0-1.0); %Eosinophils 1.7 % (0.0-10.0); %Lymphocytes 30.4 % (21.0-51.0); %Monocytes 10.4 % (0.0-10.0); %Neutrophils 56.1 % (42.0-75.0); Hemoglobin 11.7 g/dL (14.0-18.0); Mean Corpuscular HGB CONC 30.6 g/dL (32.0-36.0); Mean Corpuscular Volume 97.9 fL (78.0-98.0); Mean Platelet Volume 9.3 fL (7.4-10.4); Platelet Count 183 thou/uL (130-400); RBC Distribution Width 12.3 % (11.5-14.5); Red Blood Cell (RBC) Count 3.91 mill/uL (4.70-6.10); White Blood Cell (WBC) Count 4.5 thou/uL (4.8-10.8)
[2020-07-23 05:39] LABS: Anion Gap 16 mmol/L (10-20); BUN (Urea Nitrogen) 15 mg/dL (8.4-25.7); Calc. Creatinine Clearance 53 mL/min (70-130); Calcium 8.2 mg/dL (7.8-10.44); Carbon Dioxide 23 mmol/L (23-31); Chloride 106 mmol/L (98-107); Glucose 79 mg/dL (80-115); Magnesium 1.9 mg/dL (1.6-2.6); Potassium 3.4 mmol/L (3.5-5.1); Sodium 142 mmol/L (136-145)
[2020-07-23] MEDS ORDERED: Enoxaparin Sodium 40 MG/0.4 ML SYRINGE ONE (08:57)
[2020-07-23] MEDS ORDERED: Pantoprazole 40 MG VIAL IVP SCH ×2 (09:00)
[2020-07-23] MEDS: Enoxaparin Sodium 40 MG/0.4 ML SYRINGE SC SCH (09:00)
[2020-07-23] MEDS ORDERED: Amiodarone 200 MG TAB PO SCH (09:15)
[2020-07-23] MEDS ORDERED: Furosemide 40 MG/4 ML VIAL SLOW IVP SCH (09:30)
[2020-07-23] MEDS ORDERED: Furosemide 40 MG/4 ML VIAL ONE (09:51)
[2020-07-23] MEDS ORDERED: Tamsulosin HCl 0.4 MG CAP PO SCH (10:00)
--- NOTE | 2020-07-23 10:53 | PDOC.HOSPP ---
- Subjective Encounter Date: 07/23/20 Encounter Time: 10:51 Subjective: Patient seen and examined. No new complaints. No overnight events. He says he is feeling much better than when he came in last night. He says he can lay flat and breath better. Still endorses chronic non productive cough, denies feeling SOB or wheezing. Says he is ready to go home. Denies fever or chills. Denies chest pain or heart palpitations. Says he has had UOP of 1500mls since admission to ER. Denies any dysuria or hematuria. Denies abominal pain, N/V. Says he is going to have BM when I leave the room. - Objective Vital Signs & Weight: Weight Weight 182 lb 15.739 oz Result Diagrams: 07/23/20 05:00 07/23/20 05:00 Hospitalist ROS - Review of Systems Constitutional: denies: fever, chills Respiratory: reports: cough (chronic), dry. denies: shortness of breath, hemoptysis, sputum Cardiovascular: denies: chest pain, palpitations, edema Gastrointestinal: denies: nausea, vomiting, abdominal pain, diarrhea, constipation, melena, hematochezia Genitourinary: denies: dysuria, hematuria Neurological: denies: weakness All other systems reviewed; all pertinent +/- noted in HPI/Subj - Medication Medications: Active Medications Generic Name Dose Route Start Last Admin Trade Name Freq PRN Reason Stop Dose Admin Amiodarone HCl 200 mg 07/23/20 09:15 07/23/20 09:53 Amiodarone 200 Mg Tab PO 07/23/20 12:00 200 mg NOW MOOK Administration Enoxaparin Sodium 40 mg 07/23/20 09:00 07/23/20 09:00 Enoxaparin Sodium 40 Mg/0.4 Ml Syringe SC 40 mg 0900 MOOK Administration Furosemide 40 mg 07/23/20 09:30 07/23/20 09:53 Furosemide 40 Mg/4 Ml Vial SLOW IVP 07/23/20 14:00 40 mg NOW MOOK Administration Sacubitril/Valsartan 1 tab 07/23/20 10:00 07/23/20 09:53 Sacubitril 24mg/Valsartan 26mg Tab PO 07/23/20 12:00 1 tab NOW MOOK Administration Tamsulosin HCl 0.4 mg 07/23/20 10:00 07/23/20 09:53 Tamsulosin Hcl 0.4 Mg Cap PO 07/23/20 12:00 0.4 mg NOW MOOK Administration - Exam General Appearance: NAD, awake alert. negative: ill appearing Eye: anicteric sclera ENT: normocephalic atraumatic Heart: RRR, no gallops, no rubs, normal peripheral pulses, III/IV Heart - other findings: paced on tele strip Respiratory: no wheezes, no tachypnea, rales (diminished lower lobes, fine rales) Gastrointestinal: soft, non-tender, normal bowel sounds, no guarding, no rigidity Extremities: no cyanosis, no edema Skin: no rashes Neurological: no focal deficits Psychiatric: normal affect, A&O x 3 Hosp A/P (1) Acute respiratory failure with hypoxia Code(s): J96.01 - ACUTE RESPIRATORY FAILURE WITH HYPOXIA Status: Acute (2) CHF exacerbation Code(s): I50.9 - HEART FAILURE, UNSPECIFIED Status: Acute (3) COPD exacerbation Code(s): J44.1 - CHRONIC OBSTRUCTIVE PULMONARY DISEASE W (ACUTE) EXACERBATION Status: Acute (4) Abdominal pain Code(s): R10.9 - UNSPECIFIED ABDOMINAL PAIN Status: Acute (5) CAD (coronary artery disease) Code(s): I25.10 - ATHSCL HEART DISEASE OF [place] CORONARY ARTERY W/O ANG PCTRS Status: Chronic (6) Hypertension Code(s): I10 - ESSENTIAL (PRIMARY) HYPERTENSION Status: Chronic (7) History of CVA (cerebrovascular accident) Code(s): Z86.73 - PRSNL HX OF TIA (TIA), AND CEREB INFRC W/O RESID DEFICITS Status: Chronic (8) Peripheral neuropathy Code(s): G62.9 - POLYNEUROPATHY, UNSPECIFIED Status: Chronic (9) GERD (gastroesophageal reflux disease) Code(s): K21.9 - GASTRO-ESOPHAGEAL REFLUX DISEASE WITHOUT ESOPHAGITIS Status: Chronic (10) BPH (benign prostatic hyperplasia) Code(s): N40.0 - BENIGN PROSTATIC HYPERPLASIA WITHOUT LOWER URINRY TRACT SYMP Status: Chronic - Plan 70/M with PMH CHF, COPD, CAD presents for dyspnea. Patient will be admitted t elemetry floor, inpatient status. Expected length of stay greater than 2 midnights. #Acute respiratory failure with hypoxia Improved. A: SPO2 100% on 2 LNC with NL RR. Wean supplemental oxygen. #CHF exacerbation Chronic, severe with EF 10 to 15%, s/p AICD Review EKG, V paced 80 bpm's Troponins flat, chronically elevated at baseline. BNP 2803, significantly elevated compared to previous readings, on Entresto. Received Lasix 40 mg IVP in ED last night. No documented UOP in [employer]. Patient reports 1500 mils UOP. Just received second dose Lasix 40 mg IVP Add 1500 mL fluid restriction to HH diet. Daily weights. Cardiology consult pending. Cardiac rehab consultation pending. Takes unk. dose potassium at home, start K 20mEq daily. #COPD exacerbation Suspected. A: No wheezing on assessment, NAD. Continue Dulera with nebs scheduled/as needed. Wean supplemental oxygen as tolerated. #Abdominal pain Resolved. Upon assessment, patient had urge to have a BM. #CAD Status post stents. Continue full dose aspirin daily per home medication regimen. #Hypertension Upon assessment, normotensive. Reports discontinuing antihypertensives previously. Reports taking midodrine twice daily. We will restart home dose of midodrine. #History of CVA No residual deficits. Continue full dose aspirin. #Peripheral neuropathy Chronic, stable. Continue home dose gabapentin 50 mg daily. #GERD Chronic, stable. Continue home dose Protonix. BPH Chronic, stable. Continue home dose Flomax. Continue Lovenox for DVT prophylaxis. Continue Protonix for GI prophylaxis. CODE STATUS is full code. Discussed the case with attending physician, Dr. Edwards.
[2020-07-23] MEDS ORDERED: Midodrine HCl 5 MG TAB PO SCH (11:00)
[2020-07-23] MEDS ORDERED: Gabapentin 100 MG CAP PO SCH (11:00)
[2020-07-23] MEDS ORDERED: Potassium Chloride 20 MEQ TAB PO SCH (11:00)
[2020-07-23] MEDS ORDERED: Potassium Chloride 20 MEQ TAB ONE (12:26)
--- NOTE | 2020-07-23 14:59 | CON ---
DATE OF CONSULTATION: REASON FOR CONSULTATION: Acute on chronic systolic heart failure. PRIMARY MUSEUM ASSISTANT: Marilu Forebs MD HISTORY OF PRESENT ILLNESS: Mr. Sandhu is a 70-year-old gentleman, who states over the last several days, he has had increase in shortness of breath. He denies significant lower extremity edema, PND, or orthopnea. No chest pain or pressure noted. He states there has been some intermittent compliant with the diet. He does have a previous history of cardiomyopathy and has an ICD placed. CURRENT HOME MEDICATIONS: 1. Multivitamin. 2. Spiriva. 3. Gabapentin. 4. Tamsulosin. 5. Aspirin. 6. Iron. 7. Amiodarone. 8. Lasix. 9. Midodrine. 10. Pantoprazole. PAST MEDICAL HISTORY: Chronic kidney disease, erectile dysfunction, neuropathy, osteomyelitis, insomnia, anemia, hyperlipidemia, hypertension, depression, osteoarthritis, COPD, chronic systolic heart failure, ICD placement, hand surgery. SOCIAL HISTORY: No current tobacco or alcohol use. ALLERGIES: NIACIN. REVIEW OF SYSTEMS: Ten-point review of systems is reviewed and as above, otherwise negative. PHYSICAL EXAMINATION: GENERAL: Patient is a pleasant 70-year-old gentleman, who is in no acute distress. The patient appears their stated age. VITAL SIGNS: Blood pressure 96/50, heart rate 80, respirations 20. NEUROLOGIC: The patient is alert and oriented x3 with no focal neurologic deficits. HEENT: Sclerae without icterus. Mouth has moist mucous membranes with normal pallor. NECK: No JVD. Carotid upstroke brisk. No bruits bilaterally. LUNGS: Crackles noted bilaterally, worse on right versus left. BACK: No scoliosis or kyphosis. CARDIAC: Regular rate and rhythm with normal S1 and S2. No S3 or S4 noted. No significant rubs, murmurs, thrills, or gallops noted throughout the precordium. PMI is not displaced. There is no parasternal heave. ABDOMEN: Soft, nontender, nondistended. No peritoneal signs present. No hepatosplenomegaly. No abnormal striae. EXTREMITIES: 2+ femoral and 2+ dorsalis pedis pulses. No cyanosis, clubbing, or edema. SKIN: No gross abnormalities. LABORATORY DATA: White blood cell count 4.5, hemoglobin 11.7, hematocrit 38.3. Potassium 3.4, creatinine 1.53. Peak troponin 0.045. BNP of 2803. EKG shows paced rhythm. IMPRESSION: 1. [id number] systolic heart failure. 2. Previous history of noncompliance. 3. Hypertension. 4. Hyperlipidemia. RECOMMENDATIONS: Mr. Sandhu states he is feeling better, but still somewhat short of breath. He has received Lasix with some improvement. He would like to receive further Lasix and would like to go home. We will leave at the discretion of primary team. Can try and monitor this as an outpatient. He does have a previous history of angio performed on 11/30/2019, and was found to have no significant coronary artery disease, worse lesion, was estimated 40% to 50% in the mid LAD and 40% to 50% in the mid right coronary artery. LVEF is estimated at 15%. He is currently on Entresto at home and we will continue. We will also consider beta-jose therapy in addition to continuing amiodarone therapy. Job ID: [id number]
[2020-07-23] MEDS: Midodrine HCl 5 MG TAB PO SCH ×2 (16:05→20:28)
[2020-07-23] MEDS: Mometasone 200 MCG/Formoterol 5 MCG 120 PUFF INHALER INH SCH (19:11)
[2020-07-24 05:01] LABS: Magnesium 1.9 mg/dL (1.6-2.6); Phosphorus 3.1 mg/dL (2.3-4.7)
[2020-07-24] MEDS: Mometasone 200 MCG/Formoterol 5 MCG 120 PUFF INHALER INH SCH (07:27)
[2020-07-24] MEDS ORDERED: Potassium Chloride 20 MEQ TAB PO SCH (08:00)
[2020-07-24] MEDS: Midodrine HCl 5 MG TAB PO SCH (08:41)
[2020-07-24] MEDS: Enoxaparin Sodium 40 MG/0.4 ML SYRINGE SC SCH (08:42)
[2020-07-24] MEDS ORDERED: Gabapentin 100 MG CAP PO SCH ×2 (09:00)
[2020-07-24] MEDS ORDERED: Non-Formulary Item 1 EACH (Umeclidinium Bromide [Incruse Ellipta] 62.5 MCG Blst.W.Dev) IH SCH (09:00)
[2020-07-24] MEDS ORDERED: Aspirin 325 MG TAB PO SCH (09:00)
[2020-07-24] MEDS ORDERED: Tamsulosin HCl 0.4 MG CAP PO SCH (09:00)
[2020-07-24] MEDS ORDERED: FLU VACC QS2020-21(65YR UP)/PF 240 MCG/0.7 ML SYRINGE IM ONE (09:00)
[2020-07-24] MEDS ORDERED: Non-Formulary Item 1 EACH (Fluticasone/Vilanterol [Breo Ellipta 200-25 Mcg Inh] 1 EACH Bl IH SCH (09:00)
[2020-07-24 10:30] LABS: Anion Gap 16 mmol/L (10-20); BUN (Urea Nitrogen) 18 mg/dL (8.4-25.7); Calc. Creatinine Clearance 54 mL/min (70-130); Calcium 8.6 mg/dL (7.8-10.44); Carbon Dioxide 19 mmol/L (23-31); Chloride 104 mmol/L (98-107); Glucose 97 mg/dL (80-115); Potassium 3.6 mmol/L (3.5-5.1); Sodium 135 mmol/L (136-145)
[2020-07-24] MEDS ORDERED: hydrOXYzine 25 MG TAB PO PRN (10:40)
[2020-07-24] MEDS ORDERED: hydrOXYzine 25 MG TAB PO SCH (10:45)
--- NOTE | 2020-07-24 12:28 | RAD ---
CHEST 1 VIEW: HISTORY: Shortness of breath. COMPARISON: Radiograph 07/22/2020. FINDINGS: Heart size is enlarged. Enlarging right layering pleural effusion. Moderate left layering pleural e ffusion. AICD/pacer leads are similar. No pneumothorax. IMPRESSION: Enlarging pleural effusions. POS: H
[2020-07-24] MEDS ORDERED: Furosemide 20 MG/2 ML VIAL SLOW IVP SCH (13:00)
--- NOTE | 2020-07-24 13:13 | PRG ---
DATE OF SERVICE: 07/24/2020 SUBJECTIVE: Mr. Sandhu is breathing better today, feels better, not having trouble breathing. OBJECTIVE: VITAL SIGNS: Blood pressure 97/70, pulse 80. LUNGS: Clear. CARDIAC: Normal S1, normal S2. ABDOMEN: Soft, nontender. EXTREMITIES: There is no edema. ASSESSMENT: 1. Near end-stage heart disease, currently out of heart failure. 2. History of orthostatic hypotension. 3. History of ventricular arrhythmias. 4. History of defibrillator implantation. PLAN: 1. He will take Entresto twice a day. 2. Lasix 40 mg a day. 3. Potassium 20 mEq a day. 4. Midodrine 2.5 mg three times a day. 5. No beta-blockers due to hypotension. 6. Okay to be released to home. 7. Aspirin 81 mg a day for long-term prognosis obviously poor. The patient has a lot of trouble taking medicines he has difficulty reading the instructions. He has a friend, who is helping him the medicines for him to take however. Job ID: [id number]
[2020-07-24] MEDS ORDERED: Midodrine HCl 5 MG TAB PO SCH (15:00)
[2020-07-24 15:23] VITALS: BP 101/61; TEMP 98.4
--- NOTE | 2020-07-24 18:44 | PDOC.CPN ---
- Subjective Date: 07/24/20 Time: 13:00 Interval history: Patient up walking in hallway. No complaints. Denies SOB. - Review of Systems General: denies: fever/chills, weight/appetite/sleep changes, night sweats, fatigue Respiratory: denies: cough, congestion, shortness of breath, exercise intolerance Cardiovascular: denies: chest pain, palpitation, edema, paroxysmal nocturnal dyspnea, orthopnea Gastrointestinal: denies: nausea, vomiting, diarrhea, constipation, abd pain, GI bleeding Musculoskeletal: denies: pain, tenderness, stiffness, swelling, arthr itis/arthralgias Neurological: denies: numbness, syncope, seizure, weakness - Objective Allergies/Adverse Reactions: Allergies Allergy/AdvReac Type Severity Reaction Status Date / Time codeine Allergy Mild Verified 02/19/20 05:06 duloxetine [From Cymbalta] Allergy Verified 02/19/20 05:06 mirtazapine [From Remeron] Allergy Verified 02/19/20 05:06 niacin Allergy Verified 02/19/20 05:06 Visit Medications: Current Medications Albuterol/Ipratropium (Ipratropium/Albuterol Sulfate 3 Ml Neb) 3 ml NEB [id number] PRN PRN Reason: SOB &/or Wheezing Albuterol/Ipratropium (Ipratropium/Albuterol Sulfate 3 Ml Neb) 3 ml NEB [id number] [facility] Last Admin: 07/24/20 13:57 Dose: 3 ml Documented by: Aspirin (Aspirin Chewable 81 Mg Tab) 81 mg PO DAILY [facility] Enoxaparin Sodium (Enoxaparin Sodium 40 Mg/0.4 Ml Syringe) 40 mg SC 0900 [facility] Last Admin: 07/24/20 08:42 Dose: 40 mg Documented by: Furosemide (Furosemide 40 Mg Tab) 40 mg PO DAILY[facility] Gabapentin (Gabapentin 100 Mg Cap) 100 mg PO DAILY [facility] Last Admin: 07/24/20 09:31 Dose: 100 mg Documented by: Hydroxyzine HCl (Hydroxyzine 25 Mg Tab) 25 mg PO BID PRN PRN Reason: Anxiety Midodrine (Midodrine Hcl 5 Mg Tab) 5 mg PO TID [facility] Last Admin: 07/24/20 14:16 Dose: 5 mg Documented by: Mometasone Furoate/Formoterol Fumar (Mometasone 200 Mcg/Formoterol 5 Mcg 120 Puff Inhaler) 2 puff INH BID-RT [facility] Last Admin: 07/24/20 07:27 Dose: 2 puff Documented by: Pantoprazole Sodium (Pantoprazole 40 Mg Tab) 40 mg PO DAILY [facility] Last Admin: 07/24/20 08:42 Dose: 40 mg Documented by: Potassium Chloride (Potassium Chloride 20 Meq Tab) 20 meq PO QAM-WM [facility] Last Admin: 07/24/20 08:40 Dose: 20 meq Documented by: Sacubitril/Valsartan (Sacubitril 24mg/Valsartan 26mg Tab) 0.5 tab PO BID [facility] Sodium Chloride (Sodium Chloride 0.9% (Pf) 10 Ml Vial) 10 ml FS PRN PRN PRN Reason: RECONSTITUTION Vital Signs & Weight: Vital Signs Temp Pulse Pulse Pulse Resp BP BP 07/24/20 15:19 98.4 F 80 16 07/24/20 13:57 82 18 07/24/20 12:00 97.6 F 79 21 H 07/24/20 10:05 82 80 99/73 93/77 07/24/20 08:41 07/24/20 08:30 97.5 F L 81 16 07/24/20 07:26 80 20 BP Pulse Ox 07/24/20 15:19 101/61 96 07/24/20 13:57 95 07/24/20 12:00 97/70 97 07/24/20 10:05 07/24/20 08:41 100 07/24/20 08:30 91/70 100 07/24/20 07:26 99 Weight 178 lb 1.6 oz - Physical Exam General: alert & oriented x3, appears well, no apparent distress HEENT: mucus membranes moist Neck: supple neck Cardiac: regular rate and rhythm Lungs: clear to auscultation, normal breath sounds Neuro: grossly intact Abdomen: soft, non-tender Extremities: no cyanosis, no clubbing Skin: clear Musculoskeletal: no pain - Labs Result Diagrams: 07/23/20 05:00 07/24/20 09:54 Troponin/CKMB CK-MB (CK-2) 1.6 ng/mL (0-6.6) 07/22/20 23:07 Troponin I 0.043 ng/mL (< 0.028) H 07/22/20 23:07 - Assessment/Plan Assessment/Plan: 1. Acute on chronic systolic CHF 2. hypotension Patient appears stable overall. BP low today, but chronically low. Now on Entresto. Will lower dosage to 1/2 tab BID. Increase Midodrine to 5mg TID. Lasix held earlier today due to hypotension, but will go ahead and give. Ok for discharge tomorrow AM.
[2020-07-25] MEDS ORDERED: Furosemide 40 MG TAB PO SCH (07:30)
[2020-07-25] MEDS ORDERED: Aspirin 325 MG TAB PO SCH (09:00)
[2020-07-25] MEDS ORDERED: Aspirin Chewable 81 MG TAB PO SCH (09:00)
--- NOTE | 2020-07-27 18:46 | PDOC.DS.DS ---
Provider - Provider Date of Admission: 07/22/20 19:47 Date of Discharge: 07/24/20 Admitting Provider: Migue Wu MD Consultations: Cardiology Primary Care Physician: Sid Rae MD Course - Hospital Course Hospital Course: 70/M with PMH CHF, COPD, CAD presents for dyspnea. Is found to have some acute on chronic hypoxic respiratory failure. He appeared to be in an acute exacerbation of congestive heart failure. Patient had an ejection fraction of 10 to 15% with AICD in place. He was started on diuretics with IV Lasix. He had a fluid restriction. Cardiology was consulted. He improved with the diuresis. Was felt there was also a significant COPD exacerbation component. He was continued on steroids, nebulizer treatments. Once he was breathing better he was felt to be stable for discharge from the perspective of cardiolog y. Resuscitation Status: 07/22/20 21:07 Resuscitation Status Routine Resuscitation Status: FULL: Full Resuscitation - Labs Lab Results: 07/23/20 05:00 07/24/20 09:54 - Physical Exam Vitals: Weight Weight 178 lb 1.6 oz Physical Exam: The patient was seen and examined on the day of discharge. Problem - Problem (1) Acute on chronic respiratory failure with hypoxia Code(s): J96.21 - ACUTE AND CHRONIC RESPIRATORY FAILURE WITH HYPOXIA Status: Acute (2) Acute on chronic systolic CHF (congestive heart failure) Code(s): I50.23 - ACUTE ON CHRONIC SYSTOLIC (CONGESTIVE) HEART FAILURE Status: Acute (3) Abdominal pain Code(s): R10.9 - UNSPECIFIED ABDOMINAL PAIN Status: Acute (4) COPD exacerbation Code(s): J44.1 - CHRONIC OBSTRUCTIVE PULMONARY DISEASE W (ACUTE) EXACERBATION Status: Acute (5) Orthostatic hypotension Code(s): I95.1 - ORTHOSTATIC HYPOTENSION Status: Acute (6) Paroxysmal atrial fibrillation Code(s): I48.0 - PAROXYSMAL ATRIAL FIBRILLATION Status: Acute (7) CAD (coronary artery disease) Code(s): I25.10 - ATHSCL HEART DISEASE OF [place] CORONARY ARTERY W/O ANG PCTRS Status: Chronic (8) Hypertension Code(s): I10 - ESSENTIAL (PRIMARY) HYPERTENSION Status: Chronic - Time spent with Patient (mins): 30 Plan - Discharge Medications Prescriptions: Sacubitril/Valsartan [Entresto 24 mg-26 mg Tablet] 0.5 tab PO BID #60 tab Potassium Chloride [K-Dur] 20 meq PO QAM-WM #30 tab Home Medications: Medication Instructions Recorded Confirmed Type Ipratropium/Albuterol Sulfate 3 ml NEB [id number] PRN #2 neb 07/31/19 07/23/20 Rx [DuoNeb] Aspirin [Adult Low Dose Aspirin EC] 81 mg PO DAILY 07/23/20 07/23/20 History Fluticasone/Vilanterol [Breo 1 inhaler IH DAILY 07/23/20 07/23/20 History Ellipta 200-25 Mcg INH] Furosemide [Lasix] 2 tab PO DAILY 07/23/20 07/23/20 History Gabapentin [Neurontin] 50 mg PO DAILY 07/23/20 07/23/20 History Midodrine HCl [ProAmatine] 2.5 mg PO TID 07/23/20 07/23/20 History Ventolin HFA Inhaler 2 puff IH PRN PRN 07/23/20 07/23/20 History Aspirin Chewable [Aspirin Chewable 81 mg PO DAILY tab 07/24/20 Rx Tablet] Potassium Chloride [K-Dur] 20 meq PO QAM-WM #30 tab 07/24/20 Rx Sacubitril/Valsartan [Entresto 24 0.5 tab PO BID #60 tab 07/24/20 Rx mg-26 mg Tablet] hydrOXYzine [Atarax] 25 mg PO BID PRN tab 07/24/20 Rx Allergies: codeine Allergy (Mild, Verified 02/19/20 05:06) duloxetine [From Cymbalta] Allergy (Verified 02/19/20 05:06) mirtazapine [From Remeron] Allergy (Verified 02/19/20 05:06) niacin Allergy (Verified 02/19/20 05:06) Additional comments: Patient has a history of orthostatic hypotension and therefore was not placed on beta-blockers - Discharge Instructions Activity:: Activity as Tolerated Nourishment:: Heart Healthy Diet, Low Sodium Diet - Follow up Plan Referrals: Cardiac Rehab - [facility] [Outside] - 7 Days (Your doctor has ordered outpatient cardiac rehab for you to begin within 1-2 weeks after you go home from the hospital. The location nearest to you is the [facility]. The front office in [place] will call you in 3-5 days to get you scheduled for your evaluation. If you do not receive a call, please reach out to us at [phone] and request an appointment. ) Sid Rae MD [Primary Care Provider] - 7 Days (Call and set up an appointment within 7 days) Marilu Forbes MD [Active] - 7 Days (Call the office for appointment in 7 days) Disposition: HOME Quality - Care Measures CORE MEASURES:: HF
--- NOTE | 2020-08-04 13:57 | EKG ---
Test Reason : Blood Pressure : / mmHG Vent. Rate : 080 BPM Atrial Rate : 416 BPM P-R Int : 172 ms QRS Dur : 172 ms QT Int : 492 ms P-R-T Axes : 133 234 009 degrees QTc Int : 567 ms AV dual-paced rhythm Abnormal ECG Confirmed by DARINEL MEJIA DO ([id number]), content editor TOMY NDIAYE ([id number]) on 08/04/2020 1:57:32 PM Referred By: Confirmed By:DARINEL MEJIA DO
== END 2020-07-24 18:25 | disposition home or self-care (01) | DRG 291 ==
LOC: ERS 16:47 → ERHOLD 19:47 → 2NO 07-23 18:38
PROVIDERS: ADMIT Student in an Organized Health Care Education/Training Program; ATTEND Internal Medicine
DX: I13.0 Hypertensive heart and chronic kidney disease with heart failure and stage 1 through stage 4 chronic kidney disease, or unspecified chronic kidney disease (principal); J96.01 Acute respiratory failure with hypoxia; I50.23 Acute on chronic systolic (congestive) heart failure; J44.1 Chronic obstructive pulmonary disease with (acute) exacerbation; Z20.822 Contact with and (suspected) exposure to COVID-19; F41.9 Anxiety disorder, unspecified; K21.9 Gastro-esophageal reflux disease without esophagitis; I25.10 Atherosclerotic heart disease of native coronary artery without angina pectoris; G62.9 Polyneuropathy, unspecified; N40.0 Benign prostatic hyperplasia without lower urinary tract symptoms; G47.00 Insomnia, unspecified; N18.9 Chronic kidney disease, unspecified; M19.90 Unspecified osteoarthritis, unspecified site; F32.9 Major depressive disorder, single episode, unspecified; D64.9 Anemia, unspecified; E78.5 Hyperlipidemia, unspecified; N52.9 Male erectile dysfunction, unspecified; I42.9 Cardiomyopathy, unspecified; Z99.81 Dependence on supplemental oxygen; Z95.810 Presence of automatic (implantable) cardiac defibrillator; Z95.5 Presence of coronary angioplasty implant and graft; I25.2 Old myocardial infarction; Z86.73 Personal history of transient ischemic attack (TIA), and cerebral infarction without residual deficits; Z88.6 Allergy status to analgesic agent; Z88.8 Allergy status to other drugs, medicaments and biological substances; Z79.82 Long term (current) use of aspirin; Z79.899 Other long term (current) drug therapy; Z87.891 Personal history of nicotine dependence; Z79.51 Long term (current) use of inhaled steroids
CPT/HCPCS: 0240U; 36415; 51701; 71045; 74018; 80048; 80053; 81003; 81015; 82553; 83690; 83735; 83880; 84100; 84484; 85025; 93005; 93798; 94760; 96374; 97139; C9113; J1650; J1940; J7620

== ENCOUNTER 2020-07-29 05:44 | Emergency (ER) | payer MEDICARE, OTHER ==
[2020-07-29] MEDS ORDERED: Ondansetron PF 4 MG/2 ML Vial ONE (06:44)
[2020-07-29 07:34] LABS: #Lymphocytes 0.4 thou/uL (1.20-3.40); #Monocytes 0.5 thou/uL (0.11-0.59); %Basophils 0.1 % (0.0-1.0); %Eosinophils 0.5 % (0.0-10.0); %Lymphocytes 10.2 % (21.0-51.0); %Monocytes 13.5 % (0.0-10.0); %Neutrophils 75.7 % (42.0-75.0); Hemoglobin 11.7 g/dL (14.0-18.0); Mean Corpuscular HGB CONC 33.4 g/dL (32.0-36.0); Mean Corpuscular Hemoglobin 33.1 pg (27.0-31.0); Mean Platelet Volume 9.1 fL (7.4-10.4); Platelet Count 137 thou/uL (130-400); RBC Distribution Width 12.1 % (11.5-14.5); Red Blood Cell (RBC) Count 3.55 mill/uL (4.70-6.10)
--- NOTE | 2020-07-29 08:08 | RAD ---
RADIOGRAPH CHEST 1 VIEW: DATE: 07/29/2020 TIME: 6:26 AM HISTORY: 70-year-old male with history of pneumonia. Malaise. COMPARISON: 07/24/2020 FINDINGS AICD with left-sided generator. Mild patchy-streaky pulmonary densities at the bases of bilateral low er lobes. Unchanged on the left. Slight worsening on right with partial silhouetting of right cardiac border suggestive of involvement of right middle lobe. No pneumothorax. Uncertain whether or not there is pleural effusion, especially on the right. IMPRESSION: 1. Nonspecific mild pulmonary parenchymal densities at the bilateral lung bases, favored to represent subsegmental atelectasis. 2. Mild interval worsening of aeration of the right lung base. 3. Probable small right pleural effusion. A lateral view would be useful.
[2020-07-29 08:10] LABS: ALT (SGPT) 13 U/L (8-55); AST (SGOT) 20 U/L (5-34); Alkaline Phosphatase 59 U/L (40-110); Anion Gap 15 mmol/L (10-20); BUN (Urea Nitrogen) 14 mg/dL (8.4-25.7); Bilirubin, Total 1.5 mg/dL (0.2-1.2); Calc. Creatinine Clearance 0 mL/min (70-130); Calcium 8.5 mg/dL (7.8-10.44); Carbon Dioxide 25 mmol/L (23-31); Chloride 102 mmol/L (98-107); Globulin 2.7 g/dL (2.4-3.5); Glucose 94 mg/dL (80-115); Protein, Total 6.7 g/dL (5.8-8.1); Sodium 138 mmol/L (136-145)
[2020-07-29 09:50] LABS: CKMB 1.1 ng/mL (0-6.6)
== END 2020-07-29 09:48 | disposition home or self-care (01) ==
LOC: ERS 05:44
DX: J44.9 Chronic obstructive pulmonary disease, unspecified (principal); I11.0 Hypertensive heart disease with heart failure; I50.9 Heart failure, unspecified; Z79.899 Other long term (current) drug therapy; Z79.82 Long term (current) use of aspirin; I25.2 Old myocardial infarction
CPT/HCPCS: 36415; 71045; 80053; 82553; 83880; 84484; 85025; 93005; 96374; J2405

== ENCOUNTER 2020-08-03 11:30 | Inpatient (IN) | payer MEDICARE, MEDICAID ==
[~2020-08-03 11:30] MED LIST changes: +Heparin 1,000 UNITS/ML VIAL ONE; -Iopamidol 370 76% 100 ML VIAL ONE
[2020-08-03 12:09] LABS: #Basophils 0.1 thou/uL (0.0-0.2); #Lymphocytes 0.3 thou/uL (1.20-3.40); #Monocytes 0.3 thou/uL (0.11-0.59); #Neutrophils 3.5 thou/uL (1.40-6.50); %Basophils 1.7 % (0.0-1.0); %Eosinophils 0.1 % (0.0-10.0); %Lymphocytes 7.7 % (21.0-51.0); %Monocytes 7.9 % (0.0-10.0); %Neutrophils 82.6 % (42.0-75.0); Hemoglobin 11.7 g/dL (14.0-18.0); Mean Corpuscular Hemoglobin 31.7 pg (27.0-31.0); Mean Corpuscular Volume 95.9 fL (78.0-98.0); Mean Platelet Volume 9.7 fL (7.4-10.4); Platelet Count 134 thou/uL (130-400); RBC Distribution Width 12.2 % (11.5-14.5); White Blood Cell (WBC) Count 4.2 thou/uL (4.8-10.8)
[2020-08-03] MEDS ORDERED: DOBUTamine 500 mg/250 ml 250 ML IVPB SCH (12:15)
--- NOTE | 2020-08-03 12:24 | RAD ---
EXAM: CHEST ONE VIEW HISTORY: Shortness of breath. COMPARISON: 07/29/2020 FINDINGS: Triple lead left subclavian AICD device remains in place. Cardiac silhouette is enlarged. Linear dens ities are seen at the left lung base which may represent mild scarring or atelectasis. There are patchy parenchymal densities seen in the right midlung zone and right lung base worrisome for areas o f pneumonitis. No other interval change. IMPRESSION: 1. Findings suggestive of pneumonitis in the right midlung zone and right lung base. Follow-up to res olution is recommended. 2. Cardiomegaly.
[2020-08-03 12:30] LABS: ALT (SGPT) 20 U/L (8-55); AST (SGOT) 39 U/L (5-34); Albumin 4.1 g/dL (3.4-4.8); Alkaline Phosphatase 59 U/L (40-110); Anion Gap 16 mmol/L (10-20); BUN (Urea Nitrogen) 18 mg/dL (8.4-25.7); Bilirubin, Total 1.8 mg/dL (0.2-1.2); Calc. Creatinine Clearance 48 mL/min (70-130); Calcium 8.6 mg/dL (7.8-10.44); Carbon Dioxide 24 mmol/L (23-31); Chloride 100 mmol/L (98-107); Globulin 3.3 g/dL (2.4-3.5); Glucose 95 mg/dL (80-115); Potassium 4.2 mmol/L (3.5-5.1); Protein, Total 7.4 g/dL (5.8-8.1); Sodium 136 mmol/L (136-145)
[2020-08-03 12:52] LABS: CKMB 2.5 ng/mL (0-6.6)
[2020-08-03] MEDS ORDERED: DOBUTamine 500 mg/250 ml 250 ML ONE (13:03)
[2020-08-03] MEDS ORDERED: Senokot S 8.6-50 MG TAB PO PRN (14:20)
[2020-08-03] MEDS ORDERED: Ondansetron PF 4 MG/2 ML Vial IVP PRN (14:20)
[2020-08-03 15:27] LABS: Troponin I 0.216 ng/mL (< 0.028)
[2020-08-03] MEDS ORDERED: Furosemide 40 MG/4 ML VIAL SLOW IVP SCH (17:00)
--- NOTE | 2020-08-03 17:32 | CON ---
DATE OF CONSULTATION: 08/03/2020 REASON FOR CONSULTATION: Advanced congestive heart failure. HISTORY OF PRESENT ILLNESS: Mr. Sandhu is a very pleasant 70-year-old gentleman with nonischemic cardiomyopathy, is beginning progressively more short of breath despite medications, also has a history of hypotension on medicines, unable to tolerate anything else other than low-dose heart failure medicines. He has been admitted multiple times with this. He has undergone cardiac catheterization in the past showing it is a nonischemic cardiomyopathy. The catheterization was done at another town before he moving to this area. Now, he gets to the point where he is short of breath with minimal exertion and cannot lay down flat. He is refractory to medication that the oral diuretics are not effective. He has come in for intravenous dobutamine infusion and to see if he is a candidate for Milrinone. No chest pain or pressure but has intense fatigue with any type of exertion. He says he really cannot do much of anything anymore and feels short of breath when he tries to lay flat. MEDICATIONS: At home, he has a lot of trouble keeping medicines straight, but most recent list indicates Entresto half tablet twice a day low dose due to low blood pressure, furosemide 40 mg a day, midodrine 2.5 mg three times a day has been instituted as he had recurrent hypotensive episodes symptomatic, inhaled bronchodilators. ALLERGIES: TO CODEINE, NIACIN, MIRTAZAPINE. PAST SURGICAL HISTORY: He had a gallbladder removed in December of 2019. He has had a defibrillator implanted. He has cardiac catheterization done in November of 2019, ejection fraction 15%, end-diastolic pressure 26, nonobstructive coronary artery disease. REVIEW OF SYSTEMS: CONSTITUTIONAL: Positive for weakness, fatigue, and progressive lack of energy. VISION: No changes. HEARING: No changes. PULMONARY: No cough or wheezing. GASTROINTESTINAL: No nausea, vomiting, or diarrhea. SKIN: No rashes. NEUROLOGIC: No unilateral weakness or numbness. PHYSICAL EXAMINATION: GENERAL: This is a pleasant gentleman, currently resting comfortably, but he says he is short of breath with any activity. VITAL SIGNS: Not currently charted, but tend to run in the mid 90s. Pulse is in the 90s, it is atrial sensed, ventricular paced. NECK: Neck veins are slightly distended. LUNGS: Clear anteriorly and posteriorly. CARDIAC: Normal S1, normal S2. I do not hear murmur, rub, or gallop. ABDOMEN: Soft and nontender. EXTREMITIES: No clubbing or cyanosis. He has no edema. PERTINENT LABORATORY DATA: Creatinine is 1.73 which is near his baseline. ASSESSMENT: Nonischemic cardiomyopathy with progressive symptoms refractory to medication with ejection fraction of 15%. PLAN: He is on intravenous dobutamine. Dr. Avery was going to see him to see if he may be a candidate for a Milrinone. Unfortunately, however, his blood pressure tends to run low. He has been unable to tolerate beta blockers in the past due to hypotension and recurrent syncopal episodes. Prognosis is guarded to poor. The patient is well aware of this. Chest x-ray does show pulmonary vascular congestion and cardiomegaly in a biventricular pacemaker defibrillator. Job ID: [id number] [facility]
--- NOTE | 2020-08-03 17:47 | HP ---
CHIEF COMPLAINT: Shortness of breath and weight gain of 7 pounds in 3 days. HISTORY OF PRESENT ILLNESS: A 70-year-old male with a history of end-stage CHF, status post pacer and defibrillator placement and Life Alert, presenting with worsening of his shortness of breath and discharged recently after being treated for CHF and COPD, presenting with an acute CHF exacerbation along with chronic hypoxic respiratory failure. He states that he is compliant in taking his diuretics at home, blue pill and another pill. He is not peeing as much as he used to do. He feels that his pills are not working anymore. He gained about 7 pounds in 3 days. Simply worsening of shortness of breath without productive cough and fever. The patient lives alone. Just recently discharged on July 24 after managed for CHF. I talked to Dr. Forbes and we will put him on dobutamine at 5 mcg/kg per minute and admit him in the tele for further management of his acute on chronic end-stage CHF exacerbation. REVIEW OF SYSTEMS: 13-point review of systems reviewed with the patient, pertinents are in the history of present illness. Rest are negative including no fever, chills, productive cough. No headache, blurriness, tingling, numbness in his extremities. No nausea, vomiting, abdominal pain, constipation, diarrhea, hematuria, dysuria, or hematochezia. He is blind in his right eye. PAST MEDICAL HISTORY: End-stage CHF, coronary artery disease, hypertension, CVA, COPD, history of GI bleed. PAST SURGICAL HISTORY: Pacemaker and defibrillator, status post stent in June 2020. SOCIAL HISTORY: The patient lives alone. He uses marijuana but no alcohol. ALLERGIES: TO SULFATE, DULOXETINE, MIRTAZAPINE, AND NIACIN. MEDICATIONS: 1. Lasix 40 mg daily. 2. Aspirin 81 mg daily. 3. Flomax 0.4 mg once a day. 4. Gabapentin 100 mg daily. 5. Breo Ellipta 200/25 mcg inhalation once a day. 6. Ventolin 90 mcg aerosol inhaler daily. 7. Midodrine 2.5 mg three times a day. 8. DuoNeb 0.5 to 3 mg/3 mL inhalation as needed. PHYSICAL EXAMINATION: VITAL SIGNS: His temperature is 98.9, pulse 80, blood pressure 106/80, saturating 98% with 2 L oxygen by nasal cannula. GENERAL: The patient is in mild respiratory distress and he is having short of breath while talking, but nontoxic appearing. He does have 2+ pitting edema in his lower extremities. ABDOMEN: Slightly distended with ongoing anasarca. HEENT: Right eye is legally blind. Left eye with clear vision. No conjunctivitis noted. NECK: JVD present. CARDIOVASCULAR: Regular rate and rhythm with no murmurs. PULMONARY: Fine rales appreciated in the mid lung zones. He has moderate air entry with both anterior and posterior auscultation. ABDOMEN: Protuberant and distended, but bowel sounds, no rigidity noted. No guarding. EXTREMITIES: 2+ pitting edema. PSYCHIATRIC: Appropriate mood and affect. NEUROLOGIC: No focal deficits. LABORATORY DATA: His creatinine is 1.73. Rest of the CMP panel in the normal range. BNP 3979. His troponin 0.02 x2. His hemoglobin 11.7, platelet 235. EKG, paced rhythm with dual-chamber electronic pacer. Heart rate 80. Chest x-ray, small pleural effusion on the right lower side. IMPRESSION AND PLAN: 1. This is a 70-year-old male with end-stage heart disease, status post pacer and defibrillator placement and chronic respiratory failure on home oxygen, presenting with the acute on chronic systolic CHF exacerbation. The patient will be admitted in the tele. We will start him on dobutamine at 5 mcg/kg per minute. Continue with the oxygen by nasal cannula. Strict in and output, daily weight. 2. Troponin elevation probably secondary to exacerbation. Continue his cardiac medications. 3. Chronic obstructive pulmonary disease seems to be at a stable stage. We will continue with his home regimen of bronchodilators. 4. Chronic kidney disease stage 3-4. Creatinine seems to be at baseline without worsening. Avoid nephrotoxic agents. 5. Anemia of chronic disease. 6. DVT prophylaxis. Heparin b.i.d. 7. He had an echo done in February 2020 showing EF of 15% with grade 3 diastolic dysfunction and concentric left ventricular hypertrophy with moderate mitral regurgitation and aortic regurgitation. Right ventricular systolic pressure at [address] to [address] Forbes. Given his advanced stage of heart condition, it is also appropriate to consult Palliative as well. He needs cardiac rehab upon discharge. The patient lives alone. Job ID: [id number] [facility]
[2020-08-03] MEDS ORDERED: Furosemide 40 MG/4 ML VIAL ONE (18:23)
[2020-08-03 19:01] LABS: Troponin I 0.203 ng/mL (< 0.028)
[2020-08-03] MEDS: Mometasone 200 MCG/Formoterol 5 MCG 120 PUFF INHALER INH SCH (19:15)
[2020-08-03 21:34] VITALS: BMI 24.0
[2020-08-03] MEDS: methylPREDNISolone Sod Succ 40 MG VIAL IVP SCH (22:00)
[2020-08-03] MEDS: Famotidine/PF 20 mg/2ml Vial SLOW IVP SCH (22:00)
[2020-08-03] MEDS: Heparin 5,000 UNITS/ML VIAL SC SCH (22:00)
[2020-08-03] MEDS: Non-Formulary Item 1 EACH (Midodrine Hcl [Proamatine] 2.5 MG Tab) PO SCH ×2 (22:13→22:32)
[2020-08-03] MEDS ORDERED: Escitalopram Oxalate 10 mg Tablet PO SCH (22:15)
[2020-08-03] MEDS ORDERED: rOPINIRole HCl 1 MG TAB PO SCH (22:15)
[2020-08-03] MEDS: hydrOXYzine 25 MG TAB PO PRN (22:32)
[2020-08-03] MEDS ORDERED: ALPRAZolam 0.25 MG TAB PO SCH (23:45)
[2020-08-04 05:29] LABS: Anion Gap 18 mmol/L (10-20); BUN (Urea Nitrogen) 17 mg/dL (8.4-25.7); Calc. Creatinine Clearance 56 mL/min (70-130); Calcium 8.3 mg/dL (7.8-10.44); Carbon Dioxide 23 mmol/L (23-31); Chloride 99 mmol/L (98-107); Glucose 106 mg/dL (80-115); Potassium 3.7 mmol/L (3.5-5.1); Sodium 136 mmol/L (136-145)
[2020-08-04] MEDS: Furosemide 40 MG/4 ML VIAL SLOW IVP SCH ×2 (05:33→14:02)
[2020-08-04 05:56] LABS: Hemoglobin 11.3 g/dL (14.0-18.0); Mean Corpuscular HGB CONC 33.4 g/dL (32.0-36.0); Mean Corpuscular Hemoglobin 32.2 pg (27.0-31.0); Mean Corpuscular Volume 96.3 fL (78.0-98.0); Red Blood Cell (RBC) Count 3.52 mill/uL (4.70-6.10); White Blood Cell (WBC) Count 3.5 thou/uL (4.8-10.8)
[2020-08-04 05:58] LABS: #Lymphocytes 0.3 thou/uL (1.20-3.40); #Monocytes 0.1 thou/uL (0.11-0.59); #Neutrophils 3.1 thou/uL (1.40-6.50); %Eosinophils 0.1 % (0.0-10.0); %Lymphocytes 7.9 % (21.0-51.0); %Monocytes 2.6 % (0.0-10.0); %Neutrophils 89.5 % (42.0-75.0); Mean Platelet Volume 9.7 fL (7.4-10.4); Platelet Count 119 thou/uL (130-400); Platelet Morphology Comment Appears Decreased
--- NOTE | 2020-08-04 07:07 | CON ---
DATE OF CONSULTATION: 08/03/2020 SERVICE: Advanced Heart failure transplant cardiology Initial Consult. REASON FOR CONSULT: Acute on chronic heart failure management. HISTORY OF PRESENT ILLNESS: Mr. Humberot Sandhu, 70-year-old gentleman with known heart failure with reduced ejection fraction with EF about 15%, presented with combination of severe shortness of breath, worsening heart failure symptoms, and hypotension. About a month ago, he could not walk more than 50 yards. However, at that time, he was able to ambulate around his house to take care of activities of daily living. He began to have about a month worth of increasing shortness of breath and increasing fatigue and inability to maintain blood pressure. He progressed to the point where chewing food will cause severe shortness of breath. Talking will cause short of breath. Any little movement will cause shortness of breath. He only can walk a few steps. After a few steps, he would have to rest. At nighttime, he has a great difficulty going to sleep. He needs to sleep at 45 degree angle or higher. After he falls asleep, he will wake up very short of breath, needing to sit up. This nightly PND has been ongoing for 2 weeks now. So combination of severe shortness of breath, cannot even take a few steps, cannot sleep, eventually led him to seek care. [facility]. He was given intramuscular Lasix. He said that he felt better and the fluid went away for a while. But then, he reaccumulated. He said, he has about a 7-pound gain from 179 pounds to 186 pounds in less than a week. He also said that he normally takes Lasix 40 mg daily, but then he has increased to 160 mg of Lasix total even that was not enough. He has low systolic blood pressure about 90 mmHg. As a result, his betablocker was discontinued and Midodrine was started at outpatient. PAST MEDICAL HISTORY: 1. Heart failure with reduced ejection fraction, EF about 15% from February,. 2. Nonischemic cardiomyopathy. It was reported that coronary artery angiogram was done in 2019. It did not show significant contributing coronary artery disease. 3. Past history of hypertension, but now, he is hypotensive. 4. History of stroke. 5. Severe COPD. 6. Chronic renal insufficiency. SOCIAL HISTORY: 1. He smoked for 50 years, but quit in 2017. 2. He denies any alcohol use. 3. He admits to illicit drug use. He says that he smokes marijuana about every other day. 4. He lives alone at [facility]. However, his sister who comes every day helps him with cooking and cleaning. He also has a very supportive son. FAMILY HISTORY: His father of myocardial infarction at about age 55. His mother of myocardial infarction at age 55. He has 13 siblings. He had a sister who of heart failure, a brother who of heart failure, and a niece, who of cardiac condition. There were no other true heart failure or myocardial infarction history associated with a strong family history of cardiac disease. REVIEW OF SYSTEMS: GENERAL: He is progressively weak, but there is no fever or chills, please see HPI. HEENT: He has no change in vision, hearing and swallowing. However, he is blind in his right eye. PULMONARY: Please see HPI. CARDIAC: He does complain of palpitation. He said that he had sustained palpitations last night and that caused quite a bit discomfort and shortness of breath. GI: There is no nausea, vomiting, but he earlier stated that eating food will cause severe shortness of breath. : There is no change. He is able to urinate on his own. MUSCULOSKELETAL: There is no complaint of joint or muscle pains. INTEGUMENT: There is no new skin breakdown. NEUROLOGIC: There is no new focal deficits or weaknesses. ALLERGIES: CODEINE, DULOXETINE, MIRTAZAPINE, AND NIACIN. CURRENT MEDICATIONS: 1. Albuterol ipratropium nebs q.4 hours p.r.n. 2. Aspirin 81 mg daily. 3. Dobutamine currently at 5 mcg/kg per minute. 4. Pepcid 20 mg daily. 5. Lasix 40 mg IV b.i.d. 6. Gabapentin 50 mg daily. 7. Dulera at 200 mcg/5 mcg inhaler two puffs b.i.d. 8. Midodrine 2.5 mg t.i.d. 9. K-Dur at 20 mEq p.o. daily. PHYSICAL EXAMINATION: VITAL SIGNS: Heart rate 90, blood pressure 105/75, oxygen saturation about 98% on 2-3 L oxygen by nasal cannula. GENERAL: He looks very fatigued, reclining with mild discomfort. He is visibly short of breath with conversation. HEENT: Show EOMI, but then there is scar and opaque look of the right eye. His right eye is blind. Oropharynx; he has no teeth, but the mucosa is moist. NECK: His JVP is elevated about 12 cm. PULMONARY: There is coarse breath sounds and bilateral wheeze with tight air movement. There are also bibasilar crackles. He has sign of asthma exacerbation along with mild pulmonary edema. CARDIAC: Regular rate and rhythm. Normal S1, S2. It is difficult to hear all the heart sounds due to the loud tight lung sounds. There is 2/6 holosystolic murmur near the apex. ABDOMEN: Soft, nontender. Positive bowel sounds. He said that his abdomen is still more distended. EXTREMITIES: Lower extremities; there is about 0.5 cm pitting edema from his feet to about 2/3rd of which was knee. There is also a bit of pitting edema about his thighs. LABORATORY VALUES: White cell count 4.2, hemoglobin 11.7, platelet at 134. His chemistry values showed that sodium is 136, potassium 4.2, bicarbonate 24, BUN 18, creatinine 1.73, total bilirubin is 1.8, AST is 39. His BNP is 3979.8, so essentially is 3980. He has mildly elevated troponin first at about 0.5, but decreased down to 0.203. His albumin is 4.1. His echocardiogram from March 16, 2020 was reviewed. 1. He has a dilated left ventricle at least 6.2 cm. 2. LVEF 15%. 3. There is moderate mitral regurgitation. 4. There is severe stage III diastolic dysfunction with restrictive filling pattern. 5. There is mild to moderate aortic regurgitation. 6. His right ventricle appeared to have normal size and essentially normal function, that does suggest that he can benefit from LVAD. ASSESSMENT: 70-year-old gentleman has 2 severe problems. He currently resides at the [place] [employer] likely stage D and [place] Heart Association class IV heart failure with reduced ejection fraction. He has severe systolic and diastolic dysfunctions. It is a nonischemic cardiomyopathy. He is decompensated and somewhat volume overloaded. He will need inotropic support. At this point in time with severity of heart failure, he does not have much long to live. The only reasonable choice if he wants to live is left ventricular assistive device implantation. At first, he does not seem to be a good candidate. However, he appeared to have a very supportive family where his sister comes in every day. His son who is the power of commercial attorney has said that they were having no difficulty finding family member to stay with him for 6 weeks. His son's name is Fadi Vega, his #[phone]. They do want to pursue the left ventricular assistive device and save his father's life. Besides this severe heart failure, he seemed to be also experiencing a COPD exacerbation with tight lung sounds, wheeze. This will also need to be treated. Please see and follow my recommendations. RECOMMENDATIONS: 1. Agree with dobutamine at 5 mcg/kg per minute. 2. Agree with furosemide 40 mg IV at least b.i.d., he may need more in the future. 3. His presentation before dobutamine with systolic blood pressure of 90. This is too low blood pressure for milrinone. Thus he cannot use that for now. May consider in the future. 4. With his strong family support and desire to live, it would be a good idea to refer him to a center that can evaluate for left ventricular assistive device. 5. Please do an echocardiogram. We would need to see if his right ventricle has decreased function since last February, this would foreign exchange student coordinator. 6. Please provide Solu-Medrol 40 mg IV b.i.d. to treat his COPD exacerbation. 7. Please do a noncontrast CT of the chest because the chest x-ray is showing pneumonitis pattern. This could be more than just heart failure. 8. Please ensure COVID-19 PCR test is done. The chest x-ray of possible pneumonitis and severe shortness of breath suggest that COVID-19 is possible. So this will also need to be checked. Also, it will be a barrier or enabling test for other center to evaluate him for left ventricular assistive device. 9. If his blood pressure goes down, please increase dobutamine to 7.5 mcg/hour per minute. If that is not enough, he will need to be moved to ICU at that point, central line needs to be inserted and norepinephrine will need to be added. 10. I will initiate transfer for left ventricular assist device evaluation. This may or may not be possible, but we will give a try. It has been a pleasure taking care of Matilda Humberto Sandhu. If you have any questions, please give me a call. The total visitation time is 75 minutes. Job ID: [id number] MTDD
[2020-08-04] MEDS: Mometasone 200 MCG/Formoterol 5 MCG 120 PUFF INHALER INH SCH ×2 (07:18→19:28)
[2020-08-04] MEDS ORDERED: Potassium Chloride 20 MEQ TAB PO SCH (08:00)
[2020-08-04] MEDS ORDERED: Gabapentin 100 MG CAP PO SCH (09:00)
[2020-08-04] MEDS ORDERED: Sodium Chloride 0.9% 10 ML ONE (09:21)
[2020-08-04] MEDS: Escitalopram Oxalate 10 mg Tablet PO SCH (10:17)
[2020-08-04] MEDS: Aspirin 81 mg Enteric Coated Tablet PO SCH (10:17)
[2020-08-04] MEDS: methylPREDNISolone Sod Succ 40 MG VIAL IVP SCH (10:18)
[2020-08-04] MEDS: Famotidine/PF 20 mg/2ml Vial SLOW IVP SCH ×2 (10:18→21:19)
[2020-08-04] MEDS: Heparin 5,000 UNITS/ML VIAL SC SCH (10:20)
[2020-08-04] MEDS ORDERED: Magnesium 2 GM/50 ML 2 GM in Premix Bag 1 BAG IVPB SCH (10:30)
[2020-08-04] MEDS ORDERED: Amiodarone 200 MG TAB PO SCH (10:30)
[2020-08-04] MEDS ORDERED: Gabapentin 300 MG CAP PO SCH (10:45)
[2020-08-04] MEDS: Non-Formulary Item 1 EACH (Midodrine Hcl [Proamatine] 2.5 MG Tab) PO SCH ×2 (11:05→17:48)
[2020-08-04] MEDS: DOBUTamine 500 mg/250 ml 250 ML IVPB SCH (14:00)
[2020-08-04 15:51] LABS: SARS-CoV-2 PCR NAA for Saliva DETECTED (NotDetected)
[2020-08-04] MEDS ORDERED: Sterile Water 10 ML VIAL FS SCH (17:00)
[2020-08-04] MEDS: Potassium Chloride 20 MEQ TAB PO SCH (17:03)
--- NOTE | 2020-08-04 18:51 | PDOC.HOSPP ---
- Subjective Encounter Date: 08/04/20 Subjective: Patient says he feels okay today. Says he is breathing significantly better than he was when he initially presented. - Objective Vital Signs & Weight: Vital Signs (12 hours) Temp Pulse Resp BP Pulse Ox 08/04/20 16:00 94 L 08/04/20 15:18 97.5 F L 80 17 105/73 94 L 08/04/20 13:35 99 20 08/04/20 12:00 97.8 F 81 16 98/70 934 H 08/04/20 08:00 95 08/04/20 07:55 97.8 F 86 18 105/74 94 L Weight Weight 180 lb 8.937 oz I&O: 08/03/20 08/04/20 08/05/20 06:59 06:59 06:59 Intake Total 750 240 Output Total 1250 1600 Balance -500 -1360 Result Diagrams: 08/04/20 04:39 08/04/20 04:39 Hospitalist ROS - Medication Medications: Active Medications Generic Name Dose Route Start Last Admin Trade Name Freq PRN Reason Stop Dose Admin Albuterol/Ipratropium 3 ml 08/03/20 14:25 08/03/20 22:47 Ipratropium/Albuterol Sulfate 3 Ml Neb NEB 3 ml Q4H PRN Administration SOB &/or Wheezing Albuterol/Ipratropium 3 ml 08/04/20 13:00 08/04/20 13:35 Ipratropium/Albuterol Sulfate 3 Ml Neb NEB 3 ml [id number] MOOK Administration Aspirin 81 mg 08/04/20 09:00 08/04/20 10:17 Aspirin 81 Mg Enteric Coated Tablet PO 81 mg DAILY MOOK Administration Escitalopram Oxalate 10 mg 08/04/20 09:00 08/04/20 10:17 Escitalopram Oxalate 10 Mg Tablet PO 10 mg DAILY MOOK Administration Famotidine 20 mg 08/03/20 21:00 08/04/20 10:18 Famotidine/Pf 20 Mg/2ml Vial SLOW IVP 20 mg Q12HR MOOK Administration Heparin Sodium (Porcine) 5,000 units 08/03/20 21:00 08/04/20 10:20 Heparin 5,000 Units/Ml Vial SC 5,000 units BID MOOK Administration Hydroxyzine HCl 25 mg 08/03/20 21:57 08/03/20 22:32 Hydroxyzine 25 Mg Tab PO 25 mg BIDPRN PRN Administration Anxiety Dobutamine HCl/Dextrose 250 mls @ 12.656 mls/hr 08/03/20 15:15 08/04/20 14:00 Dobutamine 500 Mg/250 Ml IVPB 250 mls INF MOOK Administration Protocol 5 MCG/KG/MIN Mometasone Furoate/Formoterol Fumar 2 puff 08/03/20 18:30 08/04/20 07:18 Mometasone 200 Mcg/Formoterol 5 Mcg 120 Puff Inhaler INH 2 puff BID-RT MOOK Administration Non-Formulary Medication 2.5 mg 08/03/20 15:00 08/04/20 17:48 Midodrine Hcl [Proamatine] PO Not Given TID MOOK Potassium Chloride 20 meq 08/04/20 17:00 08/04/20 17:03 Potassium Chloride 20 Meq Tab PO 20 meq BID-WM MOOK Administration Sterile Water 20 ml 08/04/20 17:00 08/04/20 17:04 Sterile Water 10 Ml Vial FS 08/04/20 19:00 20 ml NOW MOOK Administration - Exam General Appearance: NAD, awake alert Heart: RRR, no gallops, no rubs Respiratory: rales Respiratory - other findings: Diminished Gastrointestinal: soft (Bases), non-tender, non-distended, normal bowel sounds Extremities: no cyanosis, no clubbing, no edema Skin: normal turgor Neurological: no focal deficits Musculoskeletal: generalized weakness Psychiatric: normal affect Hosp A/P (1) Pneumonia due to COVID-19 virus Code(s): U07.1 - COVID-19; J12.82 - PNEUMONIA DUE TO CORONAVIRUS DISEASE 2019 Status: Acute (2) Acute on chronic systolic CHF (congestive heart failure) Code(s): I50.23 - ACUTE ON CHRONIC SYSTOLIC (CONGESTIVE) HEART FAILURE Status: Acute (3) Acute respiratory failure with hypoxia Code(s): J96.01 - ACUTE RESPIRATORY FAILURE WITH HYPOXIA Status: Acute (4) CAD (coronary artery disease) Code(s): I25.10 - ATHSCL HEART DISEASE OF [place] CORONARY ARTERY W/O ANG PCTRS Status: Chronic (5) GERD (gastroesophageal reflux disease) Code(s): K21.9 - GASTRO-ESOPHAGEAL REFLUX DISEASE WITHOUT ESOPHAGITIS Status: Chronic (6) History of CVA (cerebrovascular accident) Code(s): Z86.73 - PRSNL HX OF TIA (TIA), AND CEREB INFRC W/O RESID DEFICITS Status: Chronic (7) Hypertension Code(s): I10 - ESSENTIAL (PRIMARY) HYPERTENSION Status: Chronic (8) Peripheral neuropathy Code(s): G62.9 - POLYNEUROPATHY, UNSPECIFIED Status: Chronic (9) BPH (benign prostatic hyperplasia) Code(s): N40.0 - BENIGN PROSTATIC HYPERPLASIA WITHOUT LOWER URINRY TRACT SYMP Status: Chronic - Plan Acute hypoxic respiratory failure: Secondary to CHF exacerbation and COVID-19 pneumonia: Continue supplemental oxygen as needed. COVID-19 pneumonia: New diagnosis as of today. Somewhat difficult to ascertain the original onset of symptoms given his underlying congestive heart failure. Appears to be within the window of treatment with Remdesivir. Discussed with ID. Will initiate remdesivir protocol. We will obtain inflammatory markers and initiate vitamin therapy as well. We will DC the heparin and changed to Lovenox at enhanced dosing as the patient's renal function appears to be very adequate. Acute on chronic systolic congestive heart failure: Underlying cardiomyopathy with EF 15%. Followed by Dr. Avery. Continue dobutamine drip. Working on arranging transfer to a facility where an LVAD may be an option for him. Covid diagnosis is complicated that. Continue with diuresis. Patient indicates he is feeling somewhat better from that perspective. COPD: Will change his methylprednisolone to the Decadron. Continue with bronchodilators as needed.
[2020-08-04] MEDS ORDERED: Albuterol 200 PUFF (6.7GM INHALER) INH PRN (19:45)
[2020-08-04] MEDS ORDERED: REMDESIVIR (EUA) 200 MG in Sodium Chloride 0.9% 250 ML 210 ML IV SCH (20:00)
[2020-08-04] MEDS ORDERED: methylPREDNISolone Sod Succ 40 MG VIAL IVP SCH (21:00)
[2020-08-04] MEDS: hydrOXYzine 25 MG TAB PO PRN (21:07)
[2020-08-04] MEDS: Amiodarone 200 MG TAB PO SCH (21:08)
[2020-08-04] MEDS: rOPINIRole HCl 1 MG TAB PO SCH (21:10)
[2020-08-04] MEDS: Gabapentin 300 MG CAP PO SCH (21:12)
[2020-08-04] MEDS: Enoxaparin Sodium 40 MG/0.4 ML SYRINGE SC SCH (21:18)
[2020-08-04] MEDS: Midodrine HCl 5 MG TAB PO SCH (23:28)
[2020-08-05 05:09] LABS: #Lymphocytes 0.2 thou/uL (1.20-3.40); #Monocytes 0.4 thou/uL (0.11-0.59); #Neutrophils 4.2 thou/uL (1.40-6.50); %Basophils 0.4 % (0.0-1.0); %Eosinophils 0.1 % (0.0-10.0); %Lymphocytes 4.7 % (21.0-51.0); %Monocytes 8.4 % (0.0-10.0); %Neutrophils 86.5 % (42.0-75.0); Hemoglobin 11.2 g/dL (14.0-18.0); Mean Corpuscular HGB CONC 32.7 g/dL (32.0-36.0); Mean Corpuscular Hemoglobin 31.5 pg (27.0-31.0); Mean Corpuscular Volume 96.2 fL (78.0-98.0); Mean Platelet Volume 9.7 fL (7.4-10.4); Platelet Count 132 thou/uL (130-400); Red Blood Cell (RBC) Count 3.57 mill/uL (4.70-6.10); White Blood Cell (WBC) Count 4.9 thou/uL (4.8-10.8)
[2020-08-05 05:34] LABS: Anion Gap 17 mmol/L (10-20); BUN (Urea Nitrogen) 21 mg/dL (8.4-25.7); Calc. Creatinine Clearance 54 mL/min (70-130); Calcium 8.6 mg/dL (7.8-10.44); Carbon Dioxide 24 mmol/L (23-31); Chloride 99 mmol/L (98-107); Glucose 142 mg/dL (80-115); Magnesium 2.3 mg/dL (1.6-2.6); Potassium 3.9 mmol/L (3.5-5.1); Sodium 136 mmol/L (136-145)
[2020-08-05 05:51] LABS: Ferritin 387.09 ng/mL (22-322)
[2020-08-05] MEDS: Albuterol 200 PUFF (6.7GM INHALER) INH SCH ×4 (05:59→18:39)
[2020-08-05] MEDS: Gabapentin 300 MG CAP PO SCH ×2 (08:37→21:57)
[2020-08-05] MEDS: Dexamethasone 6 MG in Sodium Chloride 0.9% 50 ML IVPB SCH (08:37)
[2020-08-05] MEDS: Amiodarone 200 MG TAB PO SCH ×2 (08:37→21:58)
[2020-08-05] MEDS: Aspirin 81 mg Enteric Coated Tablet PO SCH (08:38)
[2020-08-05] MEDS: Potassium Chloride 20 MEQ TAB PO SCH ×2 (08:38→16:49)
[2020-08-05] MEDS: Midodrine HCl 5 MG TAB PO SCH (08:38)
[2020-08-05] MEDS: Bumetanide 1 MG TAB PO SCH ×2 (08:38→16:49)
[2020-08-05] MEDS: Escitalopram Oxalate 10 mg Tablet PO SCH (08:39)
[2020-08-05] MEDS: Enoxaparin Sodium 40 MG/0.4 ML SYRINGE SC SCH ×2 (08:39→21:56)
[2020-08-05] MEDS: Famotidine/PF 20 mg/2ml Vial SLOW IVP SCH ×2 (08:40→21:57)
[2020-08-05] MEDS: DOBUTamine 500 mg/250 ml 250 ML IVPB SCH (08:47)
--- NOTE | 2020-08-05 09:17 | PRG ---
DATE OF SERVICE: 08/04/2020 SUBJECTIVE: Mr. Sandhu had a good night. Dobutamine and IV Lasix seem to work. He said he is feeling better, feeling stronger. Solu-Medrol was also given. He said he is breathing better today too. However, he did have an episode of severe shortness of breath last night. Other than that, there are no other major developments. Of note, he said that the night before admission, he had quite a bit of palpitations that made him really short of breath. As such, we will need to interrogate his AICD to see what happened. REVIEW OF SYSTEMS: GENERAL: There is no fever, chills, productive cough. HEENT: There is no change in vision, hearing, or swallowing. PULMONARY: Please see HPI. He does have shortness of breath, is better today. CARDIAC: There is no chest pain or syncope. GI: There is no nausea, vomiting, diarrhea. : It was reported that he has quite a bit of urine retention, around 600 mL. He may need to have a Mcgraw placed in the near future. MUSCULOSKELETAL: There is no muscle or joint pains. INTEGUMENT: There are no skin breakdowns. NEUROLOGIC: There are no new focal deficits or weaknesses. CURRENT MEDICATIONS: Include, 1. Aspirin 81 mg daily. 2. Dobutamine currently at 5 mcg/kg/min. 3. Lexapro 10 mg daily. 4. Pepcid 20 mg IV q.12 hours. 5. Lasix 40 mg IV b.i.d. 6. Gabapentin 600 mg b.i.d. 7. Heparin 5000 units subcu b.i.d. 8. Solu-Medrol 40 mg IV q.12 hours. 9. Dulera 200/5 mcg b.i.d. 10. K-Dur 20 mEq daily. 11. Ropinirole 1 mg q.h.s. Telemetry was reviewed. He has a mixed rhythm, some sinus, some paced, some A sensed V paced, some Bi-V paced. There is at least one episode of 5-beat run of wide-complex tachycardia. He has frequent PVCs. There is at least one run of fast pacing. This could be ATP or pace-induced tachycardia; the interrogation will have to settle this. PHYSICAL EXAMINATION: VITAL SIGNS: His systolic pressure ranged between 105 to 117, diastolic pressure between 74 and 89. His recorded in's and out's of about 750 in and 1290 out. GENERAL: He is alert and conversational, still short of breath, breathing rapidly while at 45 degrees, but he does look much more relaxed today and less short of breath than yesterday. HEENT: EOMI. Oropharynx is benign. He has no teeth. NECK: His JVP about 10 cm with positive hepatojugular reflux. PULMONARY: He has decreased breath sounds, tight air soundings. There is still expiratory wheeze, is less today than yesterday. There is decreased breath sounds at bases. There may be a bit of crackles at the left base. CARDIAC: Mostly regular in rate and rhythm. There is occasional irregularity. There is 3/6 holosystolic murmur at the apex with radiation to the left axilla. This corresponds to mitral regurgitation. ABDOMEN: Mildly distended, soft, nontender. Positive bowel sounds. EXTREMITIES: He has only slight edema from feet to about quarter way up to the ankles. LABORATORY VALUES: Today are white cell count 3.5, hemoglobin 11.3, platelets at 119. His chemistry today shows a sodium of 136, potassium 3.7, bicarb 23, BUN 17, creatinine has improved to 1.43. There is no magnesium. Echocardiogram was done today and briefly reviewed: 1. LVEF is estimated at about 15%. 2. There is moderate mitral regurgitation. 3. There is severe grade 3 diastolic dysfunction with restrictive filling pattern. 4. His right ventricle is normal size, but low normal function. 5. Pressure gradient across the tricuspid valve about 48. 6. His IVC is dilated, however, it does collapse with inspiration, so that will give him a CVP of about 10 to 15, so that would give his total RVSP of at least 58, so I would estimate his RVSP is about 60. ASSESSMENT: 70-year-old gentleman has 2 severe diseases. He likely is experiencing a chronic obstructive pulmonary disease exacerbation. We will need to increase his steroids a bit and make sure that he gets DuoNeb.However, his presenting shortness of breath is out of proportion to his volume status. He also has appearance of pneumonitis on chest X-Ray; therefore, Covid-19 is still possibility. We will need to follow-up on his Covid-19 test today. He also most likely resides in [place] Heart Association stage D, [place] Heart Association class 4 heart failure with reduced ejection fraction. It is nonischemic cardiomyopathy. He has combined systolic and diastolic dysfunctions. His cardiac output has improved on dobutamine at 5 mcg/kg/min. He is less volume overloaded today. So, Lasix 40 mg IV b.i.d. is sufficient. However, his recent history of palpitations, lots of ectopy seen on the monitor. There was at least one short run of 4 to 5 beats of wide-complex tachycardia, suggests that he has underlying arrhythmia. This could be atrial fibrillation. He may also have proximal ventricular tachycardia as these are all very likely with his nonischemic cardiomyopathy, so this will need to be addressed. With dobutamine on board, the ectopy will get worse. Please see the following for my recommendations. PROCEDURE: Interrogation of WIRE PRODUCTS INSPECTOR-D (Defibrillator with Bi-V pacing "cardiac resynchronization therapy") - [employer] [place] [id number] WIRE PRODUCTS INSPECTOR-D; SN [id number] - since 07/02/2020 - -PHYSICAL DESIGN ENGINEER 25%, -VS 1.3%, AP-PHYSICAL DESIGN ENGINEER 66%, AP=VS 4.3% - PVC at 3.3% - AFIB episodes in Apr-May 2020 and Jun-Jul 2020 RECOMMENDATIONS: 1. Please follow magnesium daily. 2. Give magnesium sulfate 2 g IV one dose now. 3. Increase frequency of K-Dur to 20 mEq b.i.d. because we need to keep the potassium above 4. 4. Increase Solu-Medrol to 60 mg IV q.12 hours for 3 days and then stop. 5. Use DuoNebs q.6 hours by RT. This is to clear his lungs. 6. There is no midodrine right now, but please discontinue midodrine for now. Midodrine can cause increase vascular resistance that makes his heart failure worse. If we can go with dobutamine only, that will help him a lot. 7. Discontinue IV Lasix after today because he is going toward euvolemia and the echocardiogram today showed that his IVC actually collapses with inspiration. Thus, it is not that much volume overload at all at this point. 8. Tomorrow, I will start Bumex 1 mg p.o. b.i.d. 9. Start amiodarone 400 mg p.o. b.i.d. for 5 gram load. 10. Please check a baseline TSH. 11. I will begin request for transfer process. 12. From the review of echocardiogram, it is apparent that his right ventricle can support a left ventricular assist device. It has been a pleasure taking care of Mr. Sandhu. It you have any questions, please give me a call. The total visitation time is about 50 minutes. Job ID: [id number] MTDD
[2020-08-05] MEDS: hydrOXYzine 25 MG TAB PO PRN (09:21)
--- NOTE | 2020-08-05 11:31 | PRG ---
DATE OF SERVICE: 08/05/2020 SERVICE: Advanced Heart Failure Cardiology Consult Service. SUBJECTIVE: Mr. Humberto Sandhu's coronavirus test turned positive. He is out of proportion severe shortness of breath with respect to heart failure findings and his chest x-ray is more consistent with pneumonitis triggering the test. The test came back positive and the following history was done. On July 30, he developed severe shortness of breath, cough, fever, some nausea, vomiting, diarrhea, and diffuse joint pains. He was seen at that time, but coronavirus test was not done. He was discharged from the ER or obs at that time. After discharge, his symptoms did not get better. It became worse. That is the reason why he went to Dr. Forbes's office on . He also then went to [facility]. The combination of the severe symptoms was what caused this hospital admission. With this more detailed history and positive coronavirus test and chest x-ray findings, this showed that he probably had new coronavirus infection about July 30. He is feeling better today. Combination of dobutamine, diuretics, steroid and DuoNeb helped. He is feeling better. He is breathing easier and he also has increased energy level. He is able to eat and he does not have loose bowel movements right now. However, he has a Mcgraw catheter inserted due to inability to urinate. He complains of leak around the Mcgraw. REVIEW OF SYSTEMS: GENERAL: There is no fever or chills. There is still some cough. HEENT: There is no change in vision, hearing, or swallowing. PULMONARY: He is less short of breath today. CARDIAC: There is no complaint of palpitation, chest pain, or syncope. GASTROINTESTINAL: He is able to eat. There is no complaint of diarrhea today. GENITOURINARY: Please see HPI. MUSCULOSKELETAL: There is no new muscle or joint pains. INTEGUMENT: There is no new skin breakdown. NEUROLOGIC: There are no focal deficits or weaknesses. MEDICATIONS: Include, 1. Albuterol q.6 hours. 2. Amiodarone 400 mg b.i.d. 3. Aspirin 81 mg daily. 4. Bumex 1 mg b.i.d. 5. Dexamethasone 6 mg daily. 6. Dobutamine at 5 mcg/kg/minute. 7. Enoxaparin 40 mg subcutaneous twice a day. 8. Lexapro 10 mg daily. 9. Pepcid 20 mg IV twice a day. 10. Gabapentin 600 mg b.i.d. 11. Midodrine 2.5 mg t.i.d. 12. Dulera 200/5 mcg combination b.i.d. 13. K-Dur 20 mEq twice a day. 14. Remdesivir 100 mg in 250 mL once a day. 15. Ropinirole 1 mg daily. OBJECTIVE: TELEMETRY: Reviewed. He is in A-sensed V-paced most of the time. Since starting the amiodarone, his PVCs has greatly decreased in frequency. There is no more episodes of wide-complex tachycardia. VITAL SIGNS: His current vitals are heart rate 83, blood pressure 106/75. He is on 3 L of oxygen by nasal cannula, saturating at 95%. GENERAL: He is alert and conversational, sitting comfortably in bed, eating his breakfast. He does look better today. HEENT: Show EOMI. His right eye is blind. Oropharynx, there are no teeth. NECK: His JVP is about 11 cm. Positive hepatojugular reflux. PULMONARY: He has better air movement today, less wheezing. There are still slight bibasilar crackles. CARDIAC: Regular rate and rhythm with normal S1 and S2, with occasional irregularity. There is about 1/6 holosystolic murmur at the apex. It is difficult to hear because I am using isolation stethoscope. ABDOMEN: Soft, nontender. Positive bowel sounds. EXTREMITIES: Lower extremities, they are without edema today. LABORATORY VALUES: Today, white cell count 4.9, hemoglobin 11.2, platelet count 132. There are only 4.7% lymphocytes, thus he has lymphopenia. Chemistry shows sodium 136, potassium 3.9, chloride 99, bicarb 24, BUN 21, creatinine 1.5, magnesium 2.3, ferritin 387, and C-reactive protein is 3.03. His BNP has decreased from 3979 down to 3191, so there is significant decrease in BNP. ASSESSMENT: 70-year-old gentleman has a principal admission diagnosis of COVID-19 pneumonia with combination of increasing shortness of breath, nausea, vomiting, diarrhea, chest x-ray findings, and past coronavirus test showed that this occurred on July 30, 2020. At this point, he is living with sequela. Unfortunately, monoclonal antibody was not given at that time. Since he is admitted now, we will need to do the best we can. He also has likely [place] Heart Association stage D and [place] Class Association class 4 heart failure with reduced ejection fraction. It is due to nonischemic cardiomyopathy. He has both systolic and diastolic dysfunction. He also has paroxysmal atrial fibrillation. This was confirmed yesterday with AICD-CRTD interrogation. He does have some occasional wide complex tachycardia on the telemetry. He says he will need definitive therapy. With coronavirus, this will be delayed. Conversation took place with [facility]. Here is the plan. If he continues to deteriorate, [facility] will take him if we cannot manage him here. If he cannot be weaned off dobutamine on day #10, then we will seek transfer to [facility] on day #10 with clearing of coronavirus. If he is able to titrate off dobutamine or Milrinone by day #10, then [facility] will take him as outpatient on day #28. Please see the following for my recommendations. RECOMMENDATIONS: 1. Please place PICC for long-term dobutamine or Milrinone infusion. 2. Decrease amiodarone dose to 200 mg twice every 12 hours. 3. Start Eliquis 5 mg p.o. q.12 hours after PICC has been placed. This is due to that there is spontaneous contrast that you can see on echocardiogram, and history of atrial fibrillation and heart failure. 4. If possible, fluid restriction to 2 L per day. 5. Discontinue midodrine. We need to find out what dobutamine can do by itself and we also need to find out if he can tolerate Milrinone. Having midodrine on board, it will not help. 6. May discontinue Mcgraw catheter if needed. 7. Please consider reinitiating Xanax p.r.n. for panic attack or sudden onset of severe shortness of breath. I have informed his sister, Veronica Sandhu. Ms. Sandhu has seen the patient daily. Thus, she has been exposed to coronavirus. I also told him to inform all the family members who has been exposed to him for the last 2 weeks. They need to quarantine themselves and get tested for coronavirus. It has been a pleasure taking care of Mr. Sandhu. If any questions, please give me a call. The total visitation time is about 60 minutes. This includes multiple conversations with family member, coordinating care with [facility], directly performing history and physical, and counseling. Job ID: [id number] [facility]
--- NOTE | 2020-08-05 12:51 | CON ---
DATE OF CONSULTATION: REQUESTING PHYSICIAN: Augustine Edwards MD REASON FOR CONSULTATION: Urinary retention. HISTORY OF PRESENT ILLNESS: Mr. Sandhu is a 70-year-old male with history of end-stage CHF, status post pacemaker and defibrillator placement as well as a Life Alert, who presented with worsening shortness of breath after being recently discharged. The patient also reported decreased urine output. He was admitted. He ended up being COVID positive and developed pneumonia. The patient's urine output was low, and therefore, they elected to place a Mcgraw catheter, at which point 600 mL of yellow urine was drained. Urology was consulted for the urinary retention. Prior to this, the patient states he has had some voiding difficulty recently, but this has not been chronic. He denies any previous history of surgery on his prostate. He does take Flomax 0.4 mg daily. The patient sees Dr. Dudley as an outpatient and recently saw him. He has no other complaints. REVIEW OF SYSTEMS: Full 12-point review of systems was performed and is negative other than that mentioned in HPI. PAST MEDICAL HISTORY: End-stage CHF, coronary artery disease, hypertension, CVA, COPD, and history of GI bleed. PAST SURGICAL HISTORY: Pacemaker, defibrillator placement. SOCIAL HISTORY: He lives alone. Uses marijuana. No alcohol. ALLERGIES: SULFATE, DULOXETINE, MIRTAZAPINE, AND NIACIN. MEDICATIONS: 1. Lasix. 2. Aspirin. 3. Flomax. 4. Gabapentin. 5. Breo Ellipta. 6. Ventolin. 7. Midodrine. 8. DuoNeb. PHYSICAL EXAMINATION: VITAL SIGNS: Temperature is 98.9, pulse 80, blood pressure 106/80, oxygen saturation 98% on 2 L nasal cannula. GENERAL: He is alert and oriented x3. In no apparent distress. HEENT: Normocephalic, atraumatic. NECK: Supple. No masses or lymphadenopathy. CARDIOVASCULAR: Regular rate and rhythm. PULMONARY: Breathing unlabored. ABDOMEN: Slightly distended with anasarca, nontender. GENITOURINARY: Mcgraw catheter is in place, draining yellow urine. EXTREMITIES: 2+ bilateral lower extremity pitting edema. NEUROLOGIC: No focal deficits. PSYCHIATRIC: Normal mood. Appropriate affect. LABORATORY DATA: White blood cell count 4.9, hemoglobin 11.2, hematocrit 34.4, and platelets 132. Sodium 136, potassium 3.9, chloride 99, bicarb 24, BUN 21, and creatinine 1.5. ASSESSMENT: A 70-year-old male with BPH, incomplete bladder emptying, and urinary retention. PLAN: At this point, the patient's Mcgraw catheter can remain in place. He has had some leakage around the Mcgraw catheter, likely secondary to bladder spasms. We will start Levsin for this. The patient sees Dr. Dudley as an outpatient for his BPH. His Mcgraw catheter can remain in place until he is able to see Dr. Dudley as an outpatient for further evaluation and management of this. Job ID: [id number]
[2020-08-05] MEDS: Mometasone 200 MCG/Formoterol 5 MCG 120 PUFF INHALER INH SCH ×2 (14:06→16:49)
--- NOTE | 2020-08-05 16:20 | PDOC.HOSPP ---
- Subjective Encounter Date: 08/05/20 Encounter Time: 13:00 Subjective: F/u : heart failure The patient states he feels better. Two day sago, he was hardly able to ambulate to the bedroom door, but now he can walk around the room a few times. He has a mild dry cough . Patient is interested in fixing his heart if needed at another hospital, states he is not ready to "" yet THe patient states he smokes marijuana daily, cigarettes occasionally and no alcohol. THe patient was asking for a joint and whether this contributed to his heart failure - Objective Vital Signs & Weight: Vital Signs (12 hours) Temp Pulse Resp BP Pulse Ox 08/05/20 11:30 98.6 F 93 24 H 111/83 96 08/05/20 07:55 98.5 F 83 20 106/75 96 Weight Weight 180 lb 8.937 oz I&O: 08/04/20 08/05/20 08/06/20 06:59 06:59 06:59 Intake Total 750 1687 Output Total 1250 2700 Balance -500 -1013 Result Diagrams: 08/05/20 04:05 08/05/20 04:05 Hospitalist ROS - Review of Systems Constitutional: denies: fever, chills - Medication Medications: Active Medications Generic Name Dose Route Start Last Admin Trade Name Mario PRN Reason Stop Dose Admin Albuterol Sulfate 2 puff 08/05/20 01:00 08/05/20 13:59 Albuterol 200 Puff (6.7gm Inhaler) INH 2 puff [id number] MOOK Administration Aspirin 81 mg 08/04/20 09:00 08/05/20 08:38 Aspirin 81 Mg Enteric Coated Tablet PO 81 mg DAILY MOOK Administration Bumetanide 1 mg 08/05/20 07:30 08/05/20 08:38 Bumetanide 1 Mg Tab PO 1 mg BID-AC MOOK Administration Enoxaparin Sodium 40 mg 08/04/20 21:00 08/05/20 08:39 Enoxaparin Sodium 40 Mg/0.4 Ml Syringe SC 08/06/20 11:00 40 mg 0900,2100 MOOK Administration Escitalopram Oxalate 10 mg 08/04/20 09:00 08/05/20 08:39 Escitalopram Oxalate 10 Mg Tablet PO 10 mg DAILY MOOK Administration Famotidine 20 mg 08/03/20 21:00 08/05/20 08:40 Famotidine/Pf 20 Mg/2ml Vial SLOW IVP 20 mg Q12HR MOOK Administration Gabapentin 600 mg 08/04/20 21:00 08/05/20 08:37 Gabapentin 300 Mg Cap PO 600 mg BID MOOK Administration Hydroxyzine HCl 25 mg 08/03/20 21:57 08/05/20 09:21 Hydroxyzine 25 Mg Tab PO 25 mg BIDPRN PRN Administration Anxiety Dobutamine HCl/Dextrose 250 mls @ 12.656 mls/hr 08/03/20 15:15 08/05/20 08:47 Dobutamine 500 Mg/250 Ml IVPB 250 mls INF MOOK Administration Protocol 5 MCG/KG/MIN Dexamethasone 6 mg/ Sodium 50.6 mls @ 100 mls/hr 08/05/20 09:00 08/05/20 08:37 Chloride IVPB 50.6 mls DAILY MOOK Administration Mometasone Furoate/Formoterol Fumar 2 puff 08/03/20 18:30 08/05/20 14:06 Mometasone 200 Mcg/Formoterol 5 Mcg 120 Puff Inhaler INH Not Given BID-RT MOOK Potassium Chloride 20 meq 08/04/20 17:00 08/05/20 08:38 Potassium Chloride 20 Meq Tab PO 20 meq BID-WM MOOK Administration Ropinirole HCl 1 mg 08/04/20 21:00 08/04/20 21:10 Ropinirole Hcl 1 Mg Tab PO 1 mg QPM MOOK Administration - Exam General Appearance: NAD, awake alert Eye: PERRL, anicteric sclera ENT: normocephalic atraumatic, no oropharyngeal lesions Neck: no JVD Heart: RRR, no murmur, no gallops, no rubs Respiratory: CTAB, no wheezes, no rales, no ronchi Gastrointestinal: soft, non-tender, non-distended, normal bowel sounds Gastrointestinal - other findings: pastrana in place Extremities: no cyanosis, no clubbing, no edema Skin: normal turgor, no lesions, no rashes Neurological: cranial nerve grossly intact, normal sensation to touch, no weakness Musculoskeletal: normal tone, normal strength, no muscle wasting Psychiatric: A&O x 3 Hosp A/P - Plan Chest X ray: pneumonitis right mid lung base and lung zone THis is a 70 year old male with past medical history of systolic CHF, presenting with worsening shortness of breath and decreased urine output. He also gained 7 pounds. #Acute hypoxic respiratory failure secondary to COVID pneumonia and acute systolic and diastolic heart failure #Moderate aortic and mitral regurgitation - the patient is on dobutamine drip. PICC line will be placed for long-term dobutamine/milrinone infusion. Midodrine discontinued - continue dexamethasone and remdesivir History of pacer/defibrillator - amiodarone reduced to 200 mg bid - continue eliquis Restless leg syndrome - continue ropinirole Anemia - Hb 11.2, stable CKD - creatinine 1.50, stable currently , will monitior Urine retention with history of BPH - pastrana catheter in place. Continue until he sees. Dr. Dudley as an outpatient - continue levsin for bladder spasms
[2020-08-05] MEDS ORDERED: REMDESIVIR (EUA) 100 MG in Sodium Chloride 0.9% 250 ML 230 ML IV SCH (20:00)
[2020-08-05] MEDS: rOPINIRole HCl 1 MG TAB PO SCH ×2 (21:57→21:58)
[2020-08-05] MEDS: REMDESIVIR (EUA) 100 MG in Sodium Chloride 0.9% 100 ML IV SCH (21:58)
[2020-08-06] MEDS: Albuterol 200 PUFF (6.7GM INHALER) INH SCH ×4 (01:02→17:21)
[2020-08-06 04:51] LABS: #Lymphocytes 0.4 thou/uL (1.20-3.40); #Monocytes 0.5 thou/uL (0.11-0.59); #Neutrophils 7.3 thou/uL (1.40-6.50); %Basophils 0.1 % (0.0-1.0); %Eosinophils 0.2 % (0.0-10.0); %Monocytes 5.7 % (0.0-10.0); Hemoglobin 11.1 g/dL (14.0-18.0); Mean Corpuscular Hemoglobin 31.7 pg (27.0-31.0); Mean Corpuscular Volume 98.9 fL (78.0-98.0); Mean Platelet Volume 9.5 fL (7.4-10.4); Platelet Count 157 thou/uL (130-400); Red Blood Cell (RBC) Count 3.51 mill/uL (4.70-6.10); White Blood Cell (WBC) Count 8.2 thou/uL (4.8-10.8)
[2020-08-06 05:19] LABS: Anion Gap 18 mmol/L (10-20); BUN (Urea Nitrogen) 25 mg/dL (8.4-25.7); Calc. Creatinine Clearance 51 mL/min (70-130); Calcium 8.7 mg/dL (7.8-10.44); Carbon Dioxide 24 mmol/L (23-31); Chloride 100 mmol/L (98-107); Glucose 146 mg/dL (80-115); Potassium 3.7 mmol/L (3.5-5.1); Sodium 138 mmol/L (136-145)
[2020-08-06] MEDS: Mometasone 200 MCG/Formoterol 5 MCG 120 PUFF INHALER INH SCH ×2 (05:48→17:21)
[2020-08-06] MEDS: DOBUTamine 500 mg/250 ml 250 ML IVPB SCH (06:37)
[2020-08-06] MEDS: Bumetanide 1 MG TAB PO SCH ×2 (07:45→17:21)
[2020-08-06] MEDS: Amiodarone 200 MG TAB PO SCH ×2 (07:45→21:15)
[2020-08-06] MEDS: Aspirin 81 mg Enteric Coated Tablet PO SCH (07:45)
[2020-08-06] MEDS: Escitalopram Oxalate 10 mg Tablet PO SCH (07:45)
[2020-08-06] MEDS: Potassium Chloride 20 MEQ TAB PO SCH ×2 (07:46→17:21)
[2020-08-06] MEDS: Enoxaparin Sodium 40 MG/0.4 ML SYRINGE SC SCH (07:46)
[2020-08-06] MEDS: Gabapentin 300 MG CAP PO SCH ×2 (07:46→21:14)
[2020-08-06] MEDS: Famotidine/PF 20 mg/2ml Vial SLOW IVP SCH ×2 (07:46→21:15)
[2020-08-06] MEDS ORDERED: Potassium Chloride 20 MEQ TAB PO SCH (10:00)
[2020-08-06] MEDS ORDERED: Magnesium Oxide 400 MG TAB PO SCH (10:15)
--- NOTE | 2020-08-06 10:46 | PRG ---
DATE OF SERVICE: 08/06/2020 SUBJECTIVE: Mr. Humberto Sandhu had a good day. He said he is breathing easy. He has higher energy level. The only time he felt bad was when he tried to wash his face. There is no nausea, vomiting, or diarrhea. He still said there is some urine leaking around his Mcgraw catheter. Overall, he said generally, he is doing good, much much better than prior to admission. His sister was informed about coronavirus status. Her name is Veronica Sandhu. She will needs a letter to her employer about her brother being tested positive and she has been taking care of him, that she will need to be quarantined for 14 days as well as all other close contacts he had. REVIEW OF SYSTEMS: GENERAL: There is good energy level. There is no fever. HEENT: There is no change in vision, hearing, or swallowing. PULMONARY: Please see HPI. CARDIAC: There is no chest pains or syncope. GI: There is no nausea, vomiting, diarrhea. : He still has leaks around a Mcgraw catheter. MUSCULOSKELETAL: There is no complaint of joint pain or muscular pains. INTEGUMENT: There is no new skin breakdown. NEUROLOGIC: There are no new focal deficits or weaknesses. MEDICATIONS: Include: 1. Albuterol q.6 hours. 2. Amiodarone 200 mg b.i.d. 3. Apixaban 5 mg b.i.d. after the PICC line has been inserted. 4. Aspirin 81 mg daily. 5. Dexamethasone 6 mg daily. 6. Dobutamine at 5 mcg/kg/minute. 7. Enoxaparin. This will need to be discontinued. 8. Lexapro 10 mg daily. 9. Pepcid 20 mg IV q.12 hours. 10. Gabapentin 600 mg b.i.d. 11. Dulera 200 mcg/5 mcg b.i.d. 12. Potassium chloride in terms of K-Dur 20 mEq b.i.d. 13. Remdesivir 100 mg IV. 14. Ropinirole I mg each night. His telemetry was reviewed. He has a mixed rhythm. He is A sensed V paced, A paced V paced. There is some PVC. At 6:30 this morning, there is an 18-beat run of wide-complex tachycardia with variable rate between 105 and 154. Thus, this could be atrial fibrillation with aberrancy or paroxysmal ventricular tachycardia. By the irregularity, it is most likely to be atrial fibrillation with aberrancy. PHYSICAL EXAMINATION: VITALS: Consist of heart rate 80, blood pressure 113/72. He is oxygen saturating at 97% on 2 L of oxygen by nasal cannula, so this is an improvement. GENERAL: He is alert and conversational, sitting comfortably in the bed, eating breakfast. HEENT: Show EOMI. There is a right eye blindness. Oropharynx benign with moist mucosa. NECK: JVP about 11 cm. Positive hepatojugular reflux. LUNGS: There is good air movement at upper lung bunn. There are diminished breath sounds and slight crackles at the left base. CARDIAC: Mostly regular rhythm. There is occasional irregularity. There is 2/6 holosystolic murmur near the apex with radiation to the left axilla. ABDOMEN: Soft, nontender. Positive bowel sounds. EXTREMITIES: Lower extremities are without edema. LABORATORY VALUES: White cell count 8.2, hemoglobin 11.1, platelets 157. His chemistry shows sodium 138, potassium 3.7, bicarb at 24, BUN 25, creatinine 1.56. His magnesium is at 2.0. ASSESSMENT: This 70-year-old gentleman has two severe illnesses. First, his chief admission cause is COVID-19 pneumonia. He is now receiving remdesivir and dexamethasone for this. We will need to monitor him closely for at least ten days. He can turn worse. With the long-standing heart failure, this could be a very difficult case. He also has [place] Heart Association stage D, [place] heart Association class 4 heart failure with reduced ejection fraction. This has combined systolic and diastolic function with EF about 15%. He is currently on dobutamine at 5 mcg/kg/minute. Even so, he looks better. His blood pressure is much better than at home. He said at home his blood pressure is about 80s with midodrine. With dobutamine and without midodrine, his systolic blood pressure has been about 100 to 110. He feels better with this. However, long-term davis, he will likely need a left ventricular assist device. The current plans are, if he deteriorates, we will request emergent transfer to [facility]. If he still requires dobutamine at day 10, at that point, we will request transfer to [facility]. If we are able to titrate off dobutamine after day 10, then he will see [facility] on day 28. He also has paroxysmal atrial fibrillation that needs better control. He also has chronic renal insufficiency with acute exacerbations. We will need to watch out for this. Please see the following for my recommendations. RECOMMENDATIONS 1. Increase amiodarone to 400 mg q.12 hours to complete 5 g level and after that amiodarone should decrease to 200 mg daily. 2. Please give K-Dur 20 mEq p.o. one dose now. 3. Please increase dobutamine to 6 mcg/kg per minute after PICC. 4. Please initiate magnesium oxide 400 mg p.o. b.i.d. 5. Depending on the lab values tomorrow, we may change his diuretics to give his renal function a chance to recover. It has been a pleasure taking care of Mr. Sandhu. If you have a question, please give me a call. Duration of the total visit today is 45 minutes. Job ID: [id number] [facility]
[2020-08-06] MEDS: Dexamethasone 6 MG in Sodium Chloride 0.9% 50 ML IVPB SCH (11:01)
--- NOTE | 2020-08-06 14:29 | PDOC.HOSPP ---
- Subjective Encounter Date: 08/06/20 Encounter Time: 09:00 Subjective: F/u: COVID The patient is on 2L nasal cannula saturating 97%. He has minimal cough. His shortness of breath has improved. He is anxious about getting his PICC line today - Objective Vital Signs & Weight: Vital Signs (12 hours) Temp Pulse Resp BP Pulse Ox 08/06/20 11:35 98 F 89 24 H 102/74 97 08/06/20 08:00 98.4 F 80 20 113/72 97 08/06/20 03:33 98.3 F 86 16 112/75 93 L Weight Weight 179 lb 4.8 oz I&O: 08/05/20 08/06/20 08/07/20 06:59 06:59 06:59 Intake Total 1687 2132.8 Output Total 2700 2825 800 Balance -1013 -692.2 -800 Result Diagrams: 08/06/20 04:25 08/06/20 04:25 Hospitalist ROS - Review of Systems Constitutional: denies: fever, chills - Medication Medications: Active Medications Generic Name Dose Route Start Last Admin Trade Name Freq PRN Reason Stop Dose Admin Albuterol Sulfate 2 puff 08/05/20 01:00 08/06/20 11:01 Albuterol 200 Puff (6.7gm Inhaler) INH 2 puff [id number] MOOK Administration Aspirin 81 mg 08/04/20 09:00 08/06/20 07:45 Aspirin 81 Mg Enteric Coated Tablet PO 81 mg DAILY MOOK Administration Bumetanide 1 mg 08/05/20 07:30 08/06/20 07:45 Bumetanide 1 Mg Tab PO 1 mg BID-AC MOOK Administration Escitalopram Oxalate 10 mg 08/04/20 09:00 08/06/20 07:45 Escitalopram Oxalate 10 Mg Tablet PO 10 mg DAILY MOOK Administration Famotidine 20 mg 08/03/20 21:00 08/06/20 07:46 Famotidine/Pf 20 Mg/2ml Vial SLOW IVP 20 mg Q12HR MOOK Administration Gabapentin 600 mg 08/04/20 21:00 08/06/20 07:46 Gabapentin 300 Mg Cap PO 600 mg BID MOOK Administration Hydroxyzine HCl 25 mg 08/03/20 21:57 08/05/20 09:21 Hydroxyzine 25 Mg Tab PO 25 mg BIDPRN PRN Administration Anxiety Dobutamine HCl/Dextrose 250 mls @ 15.187 mls/hr 08/03/20 15:15 08/06/20 06:37 Dobutamine 500 Mg/250 Ml IVPB 250 mls INF MOOK Administration Protocol 6 MCG/KG/MIN Dexamethasone 6 mg/ Sodium 50.6 mls @ 100 mls/hr 08/05/20 09:00 08/06/20 11:01 Chloride IVPB 50.6 mls DAILY MOOK Administration Remdesivir 100 mg/ Sodium 100 mls @ 100 mls/hr 08/05/20 20:00 08/05/20 21:58 Chloride IV 08/08/20 20:59 100 mls 2000 MOOK Administration Mometasone Furoate/Formoterol Fumar 2 puff 08/03/20 18:30 08/06/20 05:48 Mometasone 200 Mcg/Formoterol 5 Mcg 120 Puff Inhaler INH 2 puff BID-RT MOOK Administration Potassium Chloride 20 meq 08/04/20 17:00 08/06/20 07:46 Potassium Chloride 20 Meq Tab PO 20 meq BID-WM MOOK Administration Ropinirole HCl 1 mg 08/04/20 21:00 08/05/20 21:58 Ropinirole Hcl 1 Mg Tab PO Not Given QPM MOOK - Exam General Appearance: NAD, awake alert Eye: PERRL, anicteric sclera ENT: normocephalic atraumatic, no oropharyngeal lesions Neck: no JVD Heart: RRR, no murmur, no gallops, no rubs Respiratory: CTAB, no wheezes, no rales, no ronchi Gastrointestinal: soft, non-tender, non-distended, normal bowel sounds Extremities: no edema Hosp A/P - Plan Chest X ray: pneumonitis right mid lung base and lung zone THis is a 70 year old male with past medical history of systolic CHF, presenting with worsening shortness of breath and decreased urine output. He also gained 7 pounds. #Acute hypoxic respiratory failure secondary to COVID pneumonia and acute systolic and diastolic heart failure #Moderate aortic and mitral regurgitation - the patient is on dobutamine drip. Dose to be increased to 6 mcg/kg per minute . PICC Line placed today. Plan to wean off dobutamine, but if still requiring this after ten days, plan to transfer to [facility] per Dr. Avery for LVAD placement - continue dexamethasone and remdesivir #History of pacer/defibrillator #Paroxysmal atrial fibrillation - increase amiodarone to 400 mg q12 hours per Dr. Avery - continue eliquis Restless leg syndrome - continue ropinirole Anemia - Hb 11.2, stable CKD - creatinine 1.56, stable currently , will monitior Urine retention with history of BPH - pastrana catheter in place. Continue until he sees. Dr. Dudley as an outpatient - continue levsin for bladder spasms
--- NOTE | 2020-08-06 14:39 | SPC ---
Right upper extremity PICC placement sonographic guided HISTORY: Heart failure. FINDINGS: After explaining the procedure and answering all questions, the right upper extremity was p repped and draped in usual sterile fashion. Sterile technique, buffered local anesthesia, sonographic guidance, and a 22-gauge needle were used t o carefully access the right brachial vein. Standard technique was used to place the tip of a 5 [place] single lumen PICC so that the tip lies at the level of the superior vena cava. Catheter was flushed and secured externally. Patient tolerated the procedure well and was returned in unchanged condition. IMPRESSION : Right upper extremity PICC is ready for use.
--- NOTE | 2020-08-06 15:37 | PQF ---
CLINICAL DOCUMENTATION CLARIFICATION FORM Dear Dr. Earnestine Balnton Date: 08/06/2020 1520 Please exercise your independent, professional judgment in responding to the clarification form. Clinical indicators are provided on the bottom of this form for your review. Please check appropriate box(es): AMI TYPE: [ ] Type 1 NV (NSTEMI) [X ] Type 2 NV (T2MI) secondary to: [ ] hypertension [ ] arrhythmia [ ] renal failure [ ] heart failure [ X other [ ] Insignificant Lab Values [ ] Acute non-ischemic myocardial injury in the absence of NV [ ] Unstable Angina [ ] ACS [ ] Other: [ ] Takotsubo syndrome [ ] Other diagnosis [ ] Unable to determine In addition, please specify: Present on Admission (POA): [ ] Yes [ ] No [ ] Unable to determine For continuity of documentation, please document condition throughout progress notes and discharge summary. Thank You. To be completed by CDI/Coding staff for physician review: CLINICAL INDICATORS - SIGNS / SYMPTOMS / LABS / RESULTS AND LOCATION IN EMR 08/03 Troponin I 0.252, 0.216, 0.203 Sent from senior statistical programmer office for SOB, Final ED DX: CHF exacerbation (ED report) 08/03 RISKS / RESULTS AND LOCATION IN EMR Paroxysmal Atrial Fibrillation, Acute hypoxic Respiratory Failure , Covid Pneumonia, Acute Systolic / Diastolic Congestive Heart Failure( PN/Franny) 08/06 Hx CAD, HTN( H&P/Gurusamy) 08/03 TREATMENTS / RESULTS AND LOCATION IN EMR Serial Troponin ( 08/03) Supplemental Oxygen( 08/03 present) Cardiac consult ( Leidy/ /08/03) Thank you! CDS Signature: Rizwana Anderson RN Phone #: [phone] Date:08/06/20 1358 This is a permanent part of the Medical Record [facility]
[2020-08-06] MEDS: REMDESIVIR (EUA) 100 MG in Sodium Chloride 0.9% 100 ML IV SCH (21:13)
[2020-08-06] MEDS: Acetaminophen 325 MG TAB PO PRN (21:14)
[2020-08-06] MEDS: Magnesium Oxide 400 MG TAB PO SCH (21:15)
[2020-08-06] MEDS: Apixaban 5 MG TAB PO SCH (21:15)
[2020-08-06] MEDS: rOPINIRole HCl 1 MG TAB PO SCH (21:16)
[2020-08-06] MEDS ORDERED: Hyoscyamine Sulfate SL 0.125 mg Tablet PO PRN (22:09)
[2020-08-06] MEDS: hydrOXYzine 25 MG TAB PO PRN (23:20)
[2020-08-07] MEDS: Albuterol 200 PUFF (6.7GM INHALER) INH SCH ×4 (00:42→18:42)
[2020-08-07] MEDS: DOBUTamine 500 mg/250 ml 250 ML IVPB SCH (05:29)
[2020-08-07] MEDS: Mometasone 200 MCG/Formoterol 5 MCG 120 PUFF INHALER INH SCH ×2 (05:29→18:42)
[2020-08-07 05:30] LABS: #Lymphocytes 0.5 thou/uL (1.20-3.40); #Monocytes 0.7 thou/uL (0.11-0.59); #Neutrophils 5.4 thou/uL (1.40-6.50); %Eosinophils 0.2 % (0.0-10.0); %Lymphocytes 7.5 % (21.0-51.0); %Neutrophils 81.3 % (42.0-75.0); Hemoglobin 11.8 g/dL (14.0-18.0); Mean Corpuscular HGB CONC 31.7 g/dL (32.0-36.0); Mean Corpuscular Hemoglobin 30.9 pg (27.0-31.0); Mean Corpuscular Volume 97.4 fL (78.0-98.0); Mean Platelet Volume 9.4 fL (7.4-10.4); Platelet Count 185 thou/uL (130-400); RBC Distribution Width 11.9 % (11.5-14.5); Red Blood Cell (RBC) Count 3.81 mill/uL (4.70-6.10); White Blood Cell (WBC) Count 6.6 thou/uL (4.8-10.8)
[2020-08-07 05:52] LABS: Anion Gap 21 mmol/L (10-20); BUN (Urea Nitrogen) 31 mg/dL (8.4-25.7); Calc. Creatinine Clearance 47 mL/min (70-130); Carbon Dioxide 26 mmol/L (23-31); Glucose 143 mg/dL (80-115); Magnesium 2.1 mg/dL (1.6-2.6); Potassium 4.8 mmol/L (3.5-5.1)
[2020-08-07 06:04] LABS: Chloride 99 mmol/L (98-107); Sodium 141 mmol/L (136-145)
[2020-08-07] MEDS: Bumetanide 1 MG TAB PO SCH (08:17)
[2020-08-07] MEDS: Dexamethasone 6 MG in Sodium Chloride 0.9% 50 ML IVPB SCH (08:17)
[2020-08-07] MEDS: Magnesium Oxide 400 MG TAB PO SCH ×2 (08:17→21:10)
[2020-08-07] MEDS: Amiodarone 200 MG TAB PO SCH ×2 (08:18→21:10)
[2020-08-07] MEDS: Gabapentin 300 MG CAP PO SCH ×2 (08:18→21:07)
[2020-08-07] MEDS: Potassium Chloride 20 MEQ TAB PO SCH (08:18)
[2020-08-07] MEDS: Apixaban 5 MG TAB PO SCH ×2 (08:18→21:10)
[2020-08-07] MEDS: Escitalopram Oxalate 10 mg Tablet PO SCH (08:19)
[2020-08-07] MEDS: Aspirin 81 mg Enteric Coated Tablet PO SCH (08:19)
[2020-08-07] MEDS: Famotidine/PF 20 mg/2ml Vial SLOW IVP SCH (08:20)
[2020-08-07] MEDS: Acetaminophen 325 MG TAB PO PRN ×2 (08:39→21:08)
[2020-08-07] MEDS ORDERED: DOBUTamine 500 mg/250 ml 250 ML IVPB SCH ×2 (09:15→16:15)
--- NOTE | 2020-08-07 09:44 | PRG ---
DATE OF SERVICE: 08/07/2020 SERVICE: Advanced Heart Failure Cardiology Consult Service SUBJECTIVE: Mr. Humberto Sandhu continues to do well. He said that he is breathing easy. He noticed that his oxygen saturations are increasing. In fact, he said his oxygen saturation is about 96% to 97% on room air now. He feels better. However, he still has a continuous cough. He said that his cough now is productive. He complains of urine leaking around his Mcgraw catheter. He also has pain around that region. REVIEW OF SYSTEMS: GENERAL: There is no fever or chills. HEENT: There is no change in vision, hearing, or swallowing. PULMONARY: Please see HPI. CARDIAC: There are no chest pains or syncope. GI: There is no nausea, vomiting, diarrhea. : Please see HPI. MUSCULOSKELETAL: There is no joint or muscle pains. INTEGUMENTARY: There is no new skin breakdown. NEUROLOGIC: There are no focal deficits or weaknesses. CURRENT MEDICATIONS: 1. Albuterol every 6 hours. 2. Amiodarone 400 mg twice a day. 3. Apixaban, which is the Eliquis 5 mg b.i.d. 4. Aspirin 81 mg daily. 5. Bumex 1 mg twice a day. 6. Dexamethasone 6 mg daily. 7. Dobutamine currently at 5 mcg/kg/minute. 8. Lexapro at 10 mg daily. 9. Pepcid 20 mg IV q.12 hours. 10. Gabapentin 600 mg b.i.d. 11. Magnesium oxide 400 mg b.i.d. 12. Dulera 200 mcg/5 mcg combination 2 puffs b.i.d. 13. Potassium chloride/K-Dur at 20 mEq b.i.d. 14. Remdesivir 100 mg daily. 15. Ropinirole 1 mg each night. PHYSICAL EXAMINATION: VITAL SIGNS: Telemetry was reviewed. He is at a mixed kind of rhythm. He has an A-sensed and V-paced. He also has A-paced, and V-paced. There were 2 episodes of wide-complex tachycardia between 5 and 6 o'clock this morning. The first one was about 7 beats. The second one is about 4 beats. His systolic blood pressure has been consistently above 100. Right now, his heart rate is 71, blood pressure 111/73, and is on 2 L of oxygen producing about 97% to 98% oxygen saturation. GENERAL: He is alert and conversational, appeared to be relaxed. HEENT: Show EOMI. Right eye blindness. Oropharynx is benign with moist mucosa. NECK: JVP was about 10 cm. Negative hepatojugular reflux. PULMONARY: There is good air movement without wheezing today. There are no crackles today. CARDIAC: Regular rate and rhythm with occasional irregularity. There is a 2/6 holosystolic murmur at the apex. ABDOMEN: Soft, nontender. Positive bowel sounds. EXTREMITIES: Lower extremities without edema. Palpable dorsalis pedis pulses. LABORATORY VALUES: White cell count 6.6, hemoglobin 11.8, platelet count 185. His percent neutrophils increased slightly at 7.5%. His chemistry shows sodium of 141, potassium 4.8, chloride 99, bicarb at 26, BUN at 31, and creatinine at 1.71. His BNP has decreased to 2678. His magnesium is 2.1. ASSESSMENT: Mr. Humberto Sandhu, 70-year-old male, is stable from 2 severe illnesses. He has COVID-19 pneumonia. He is being treated with remdesivir and dexamethasone. He also is being treated for his COPD with albuterol and Dulera. This seemed to be sufficient. His oxygen saturation has been increasing. 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 He has both systolic and diastolic dysfunctions. His cardiac output is still insufficient. Perhaps, he is a little bit overdiuresed with creatinine climbing and BUN climbing. Thus, we need to slow down or hold his diuretic for a day. He also has some arrhythmia. I will make an attempt to switch from dobutamine over to milrinone. This would allow addition of beta jose and be less arrhythmogenic. If he can tolerate Milrinone, that will be much better long course of action. He has productive cough and pain with urination, so other reasons need to be checked. We need to make sure he is not getting a secondary bacterial infection. We will also need to make sure he is not developing urinary tract infection. Please see the following for my recommendations. RECOMMENDATIONS: 1. Discontinue Bumex. 2. Discontinue K-Dur. 3. Decrease dobutamine to 5 mcg/kg/minute. 4. Start milrinone 0.125 mcg/kg/minute. We will need to monitor him. If systolic blood pressure maintains above 100 after about 6 to 12 hours, we can increase milrinone to 0.25 mcg/kg/minute, and at that point then, we can decrease dobutamine a bit later. 5. Please do urine culture. 6. Please do sputum culture. 7. Please discontinue IV Pepcid. 8. Replace IV Pepcid with Protonix 40 mg daily. This will reduce his IV fluid volume. 9. Overall cardiac plan is this: If he deteriorates from a cardiac perspective in the next week, we will transfer him to [facility] as soon as possible. If he requires an inotrope drip at the end of 10 days, we will transfer him to [facility] then. 10. If he is able to be weaned off inotropic drip, then he has an outpatient appointment with [facility] on September 04. That appointment has been made already. It has been a pleasure taking care of Mr. Sandhu. If you have any questions, please give me a call. The total visitation time today is about 45 minutes. Job ID: [id number] MTDD
[2020-08-07 10:15] LABS: Bacteria/HPF None Seen HPF (None Seen); Bilirubin Negative (Negative); Blood, Urine 2+ (Negative); Clarity Clear (Clear); Glucose, Urine (Dipstick) Normal (Negative); Ketone, Urine Negative (Negative); Leukocyte 75 Leu/uL (Negative); Nitrite Negative (Negative); Protein, Urine (Dipstick) Negative (Neg-Trace); RBC/HPF 0-3 HPF (0-3); Specific Gravity, Urine 1.013 (1.002-1.036); Squamous Epithelial None Seen HPF (0-3); Urobilinogen Normal mg/dL (Less than 2); pH, Urine 6.5 (5.0-9.0)
[2020-08-07 10:39] LABS: Urine Culture Reflex Yes Yes
[2020-08-07] MEDS ORDERED: traMADol HCl 50 MG TAB PO PRN (12:24)
--- NOTE | 2020-08-07 12:27 | PDOC.HOSPP ---
- Subjective Encounter Date: 08/07/20 Encounter Time: 12:26 Subjective: F/u: COVID Patient got PICC line yesterday He is on 2L nasal cannula 97%. Denies cough or shortness of breath. He reports severe abdominal pain, states that he has some burning when he urinates. He noted blood coming out of penile area into his urinal. Pastrana catheter bag shows no blood and not much urine output - Objective Vital Signs & Weight: Vital Signs (12 hours) Temp Pulse Resp BP Pulse Ox 08/07/20 08:29 97 08/07/20 07:50 98.9 F 71 18 111/73 98 08/07/20 03:31 97.3 F L 81 20 109/72 97 Weight Weight 176 lb 14.4 oz I&O: 08/06/20 08/07/20 08/08/20 06:59 06:59 06:59 Intake Total 2132.8 2162 Output Total 2825 2800 Balance -692.2 -638 Result Diagrams: 08/07/20 04:38 08/07/20 04:38 Hospitalist ROS - Review of Systems Constitutional: denies: fever, chills - Medication Medications: Active Medications Generic Name Dose Route Start Last Admin Trade Name Freq PRN Reason Stop Dose Admin Acetaminophen 650 mg 08/03/20 14:20 08/07/20 08:39 Acetaminophen 325 Mg Tab PO 650 mg Q4H PRN Administration Headache/Fever/Mild Pain (1-3) Albuterol Sulfate 2 puff 08/05/20 01:00 08/07/20 05:29 Albuterol 200 Puff (6.7gm Inhaler) INH 2 puff [id number] MOOK Administration Amiodarone HCl 400 mg 08/06/20 21:00 08/07/20 08:18 Amiodarone 200 Mg Tab PO 400 mg BID MOOK Administration Apixaban 5 mg 08/06/20 21:00 08/07/20 08:18 Apixaban 5 Mg Tab PO 5 mg BID MOOK Administration Aspirin 81 mg 08/04/20 09:00 08/07/20 08:19 Aspirin 81 Mg Enteric Coated Tablet PO 81 mg DAILY MOOK Administration Escitalopram Oxalate 10 mg 08/04/20 09:00 08/07/20 08:19 Escitalopram Oxalate 10 Mg Tablet PO 10 mg DAILY MOOK Administration Gabapentin 600 mg 08/04/20 21:00 08/07/20 08:18 Gabapentin 300 Mg Cap PO 600 mg BID MOOK Administration Hydroxyzine HCl 25 mg 08/03/20 21:57 08/06/20 23:20 Hydroxyzine 25 Mg Tab PO 25 mg BIDPRN PRN Administration Anxiety Hyoscyamine Sulfate 0.125 mg 08/06/20 22:09 08/06/20 23:34 Hyoscyamine Sulfate Sl 0.125 Mg Tablet PO 0.125 mg Q4H PRN Administration Bladder Spasms Dexamethasone 6 mg/ Sodium 50.6 mls @ 100 mls/hr 08/05/20 09:00 08/07/20 08:17 Chloride IVPB 50.6 mls DAILY MOOK Administration Remdesivir 100 mg/ Sodium 100 mls @ 100 mls/hr 08/05/20 20:00 08/06/20 21:13 Chloride IV 08/08/20 20:59 100 mls 2000 MOOK Administration Milrinone Lactate/Dextrose 100 mls @ 3.009 mls/hr 08/07/20 09:15 08/07/20 09:58 Milrinone Lactate/D5w IVPB 100 mls INF MOOK Administration 0.125 MCG/KG/MIN Magnesium Oxide 400 mg 08/06/20 21:00 08/07/20 08:17 Magnesium Oxide 400 Mg Tab PO 400 mg BID MOOK Administration Mometasone Furoate/Formoterol Fumar 2 puff 08/03/20 18:30 08/07/20 05:29 Mometasone 200 Mcg/Formoterol 5 Mcg 120 Puff Inhaler INH 2 puff BID-RT MOOK Administration Pantoprazole Sodium 40 mg 08/07/20 09:00 08/07/20 09:33 Pantoprazole 40 Mg Tab PO 40 mg DAILY MOOK Administration Ropinirole HCl 1 mg 08/04/20 21:00 08/06/20 21:16 Ropinirole Hcl 1 Mg Tab PO Not Given QPM MOOK - Exam General Appearance: NAD, awake alert Eye: PERRL, anicteric sclera ENT: normocephalic atraumatic, no oropharyngeal lesions Neck: no JVD Heart: RRR, no murmur, no gallops, no rubs, normal peripheral pulses Respiratory: CTAB, no wheezes, no rales, no ronchi Gastrointestinal: soft, non-distended, normal bowel sounds, no splenomegaly, no bruit Gastrointestinal - other findings: mild tenderness and distension. Pastrana catheter in place, no hematuria Extremities: no cyanosis, no clubbing, no edema Skin: normal turgor, no lesions, no rashes Hosp A/P - Plan Chest X ray: pneumonitis right mid lung base and lung zone THis is a 70 year old male with past medical history of systolic CHF, presenting with worsening shortness of breath and decreased urine output. He also gained 7 pounds. #Acute hypoxic respiratory failure secondary to COVID pneumonia and acute systolic and diastolic heart failure #Moderate aortic and mitral regurgitation - dobutamine has been weaned to 5 mcg/kg minute. Milrinone started today - discontinue bumex - continue dexmaethasone and remdesivir day 3 FANG- - creatinine up to 1.7. Pastrana in place. Bumex has been discontinued Abdominal pain /Hematuria - possibly traumatic from pastrana . CBC stable, but if worsening anemia may need to hold eliquis. UA and urine culture was ordered - will have urology re-evaluate #History of pacer/defibrillator #Paroxysmal atrial fibrillation - continue amiodarone to 400 mg q12 hours per Dr. Avery - continue eliquis Restless leg syndrome - continue ropinirole Anemia - Hb 11.2, stable CKD - creatinine 1.56, stable currently , will monitior Urine retention with history of BPH - pastrana catheter in place. Continue until he sees. Dr. Dudley as an outpatient - continue levsin for bladder spasms
[2020-08-07] MEDS: REMDESIVIR (EUA) 100 MG in Sodium Chloride 0.9% 100 ML IV SCH (21:07)
[2020-08-07] MEDS: rOPINIRole HCl 1 MG TAB PO SCH (21:08)
[2020-08-07] MEDS: hydrOXYzine 25 MG TAB PO PRN (21:08)
--- NOTE | 2020-08-07 22:39 | PDOC.EVN ---
Event Note - Event Note Event Note: spoke with Dr Dudley regarding patient's catheter discomfort. He recommended removing pastrana catheter and replacing new one. He informed me that he already spoke with the nurse regarding this
[2020-08-08 05:17] LABS: #Lymphocytes 0.6 thou/uL (1.20-3.40); #Monocytes 0.8 thou/uL (0.11-0.59); #Neutrophils 7.7 thou/uL (1.40-6.50); %Basophils 0.2 % (0.0-1.0); %Eosinophils 0.1 % (0.0-10.0); %Lymphocytes 6.8 % (21.0-51.0); %Monocytes 8.8 % (0.0-10.0); Hemoglobin 11.6 g/dL (14.0-18.0); Mean Corpuscular HGB CONC 32.4 g/dL (32.0-36.0); Mean Corpuscular Hemoglobin 31.3 pg (27.0-31.0); Mean Corpuscular Volume 96.6 fL (78.0-98.0); Mean Platelet Volume 9.5 fL (7.4-10.4); Platelet Count 185 thou/uL (130-400); RBC Distribution Width 11.8 % (11.5-14.5); Red Blood Cell (RBC) Count 3.69 mill/uL (4.70-6.10); White Blood Cell (WBC) Count 9.2 thou/uL (4.8-10.8)
[2020-08-08 05:38] LABS: Anion Gap 16 mmol/L (10-20); BUN (Urea Nitrogen) 33 mg/dL (8.4-25.7); Calc. Creatinine Clearance 52 mL/min (70-130); Calcium 9.3 mg/dL (7.8-10.44); Carbon Dioxide 26 mmol/L (23-31); Chloride 98 mmol/L (98-107); Glucose 157 mg/dL (80-115); Magnesium 2.2 mg/dL (1.6-2.6); Sodium 136 mmol/L (136-145)
[2020-08-08] MEDS: Escitalopram Oxalate 10 mg Tablet PO SCH (08:31)
[2020-08-08] MEDS: Aspirin 81 mg Enteric Coated Tablet PO SCH (08:31)
[2020-08-08] MEDS: Gabapentin 300 MG CAP PO SCH ×2 (08:31→22:27)
[2020-08-08] MEDS: Amiodarone 200 MG TAB PO SCH ×2 (08:31→22:27)
[2020-08-08] MEDS: Magnesium Oxide 400 MG TAB PO SCH ×2 (08:31→22:28)
[2020-08-08] MEDS: Albuterol 200 PUFF (6.7GM INHALER) INH SCH ×4 (08:32→19:35)
[2020-08-08] MEDS: Apixaban 5 MG TAB PO SCH ×2 (08:32→22:28)
[2020-08-08] MEDS: Dexamethasone 4 mg/ml Vial SLOW IVP SCH (08:32)
[2020-08-08] MEDS: Mometasone 200 MCG/Formoterol 5 MCG 120 PUFF INHALER INH SCH ×2 (08:33→19:35)
[2020-08-08] MEDS: hydrOXYzine 25 MG TAB PO PRN ×2 (08:34→22:26)
[2020-08-08] MEDS ORDERED: Potassium Chloride 20 MEQ TAB PO SCH (10:15)
[2020-08-08] MEDS ORDERED: Torsemide 20 MG TAB PO SCH (10:15)
--- NOTE | 2020-08-08 11:32 | PRG ---
DATE OF SERVICE: 08/08/2020 SERVICE: Advanced Heart Failure Transplant Cardiology Consult Service. SUBJECTIVE: Mr. Humberto Sandhu had an uneventful day. He said he is breathing easy. He had to go back on oxygen. He still has some productive cough, but overall, he is still breathing easy in comparison to before admission. He was a bit displeased with his fluid restriction, and wanted to go AMA. However, the nurse talked to him into staying. This morning, he is quite compliant. REVIEW OF SYSTEMS: GENERAL: There is no fever or chills. HEENT: There is no change in vision, hearing, or swallowing. PULMONARY: Please see HPI. CARDIAC: There is no chest pain, palpitations, or syncope. GI: There is no nausea, vomiting, diarrhea. : He is able to urinate because the Mcgraw catheter was taken out. Denies any trouble with that. MUSCULOSKELETAL: There is no joint pains, muscle pains. INTEGUMENT: There is no new skin breakdown. NEUROLOGIC: There are no focal deficits or weaknesses. CURRENT MEDICATIONS: Include: 1. Albuterol 2 puffs every 6 hours. 2. Amiodarone 400 mg b.i.d. for 5 g low and afterwards will be 200 mg daily. 3. Apixaban 5 mg b.i.d. 4. Aspirin 81 mg daily. 5. Dexamethasone 6 mg daily. 6. Dobutamine currently at 4 mcg/kg per minute. 7. Milrinone currently at 0.25 mcg/kg per minute. 8. Gabapentin 600 mg b.i.d. 9. Magnesium oxide 400 mg b.i.d. 10. Milrinone 0.25 mcg/kg per minute, it was titrated up last night. He was able to maintain his systolic blood pressure above 95 whole time. 11. Dulera 200 mcg/5 mcg combination. 12. Protonix 40 mg daily. 13. Remdesivir 100 mg daily. 14. Ropinirole 1 mg daily. The telemetry is reviewed. He is in a mixture of rhythm. There is A-sensed V-paced, there is A-paced V-paced. There is PVC, and there was an 8-beat run of wide-complex tachycardia about noon yesterday. OBJECTIVE: VITAL SIGNS: While was in the room with heart rate 85, blood pressure 131/85. GENERAL: He is alert and conversational without any acute distress. He is relaxed and breathing easily. However, he is back on 2 L nasal cannula oxygen and his oxygen saturation about 96%-99% on that, but he still needs a bit of oxygen supplementation. HEENT: EOMI. Oropharynx benign with moist mucosa. NECK: JVP is about 11 cm little bit higher than yesterday. PULMONARY: There is good air movement; however, there is slight crackle at the left base. CARDIAC: Regular rate and rhythm most of the time. There is occasional irregularity. There is 2/6 holosystolic murmur near the apex. ABDOMEN: Little more distended today. Soft, nontender. Positive bowel sounds. EXTREMITIES: Lower extremities have minimal if no edema. Positive dorsalis pedis pulses. LABORATORY VALUES: A little bit better today. His white cell count is 9.2, hemoglobin 11.6, platelets 185. His chemistry showed sodium 136, potassium 4.0, bicarb 26, BUN at 33, creatinine has improved to 1.51. His BNP has dropped from 2678 down to 2178, so his BNP is steadily decreasing. His sputum culture showed that he has gram positive cocci in pairs and chains. His urine culture is positive for presumptive enterococcus. ASSESSMENT: 70-year-old -[place] gentleman is doing well as he is expected from combination of COVID-19 pneumonia and underlying heart failure with reduced ejection fraction. Combination of remdesivir and dexamethasone seem to be working. However, with the productive cough and Gram positive cocci in pairs and chains suggest he may have strep pneumonia developing. He also has a UTI, so these will need to be treated. He tolerated starting of milrinone and up titrating of the milrinone. Today, we will make an effort to decrease dobutamine and increase milrinone. The idea is for him to be on milrinone alone that will have the best long-term outcome. They will also allow the initiation of beta-blockers. Due to appearance of wide-complex tachycardia, the amiodarone load should be increased to 10 g instead of 5 g. We will need to watch him for at least 10 days to get him over due to COVID-19. He will likely need a hospital to hospital transfer for urgent left ventricular assist device workup. Please see the following for my recommendations. RECOMMENDATIONS: 1. Decrease dobutamine to 2.5 mcg/kg per minute. 2. Increase milrinone to 0.375 mcg/kg per minute. 3. Provide K-Dur 20 mEq p.o. one dose now and daily. 4. Provide torsemide 20 mg p.o. daily, first dose now. 5. Please provide an antibiotic that can treat presumptive enterococcus and also possible strep pneumoniae. His white cell count is also increasing a bit along with a productive cough and sputum culture. This needs to be addressed quickly. It has been a pleasure taking care of Mr. Sandhu. If you have any question, please give me a call. The visitation time is 40 minutes. Job ID: [id number] MTDD
[2020-08-08 12:18] LABS: Strep pneumo Urine Ag NEGATIVE (NEGATIVE)
[2020-08-08] MEDS: Vancomycin 1.5 GRAM/300 ML BAG 1.5 GM in Premix Bag 1 BAG IVPB SCH (12:37)
--- NOTE | 2020-08-08 14:03 | PDOC.HOSPP ---
- Subjective Encounter Date: 08/08/20 Encounter Time: 11:00 Subjective: F/u: COVID The patient still has a moderate amount of productive cough. His abdominal pain and dysuria has resolved. Patient's pastrana catheter was removed and he declined to have it re-placed. He states he is urinating on his own Currently weaning off dobutamine with plans to transition to milrinone - Objective Vital Signs & Weight: Vital Signs (12 hours) Temp Pulse Resp BP Pulse Ox 08/08/20 11:00 98.6 F 86 20 112/76 97 08/08/20 08:52 99 08/08/20 08:40 98.5 F 80 20 117/89 96 08/08/20 04:00 98.1 F 80 16 96/72 97 Weight Weight 176 lb 14.4 oz I&O: 08/07/20 08/08/20 08/09/20 06:59 06:59 06:59 Intake Total 2162 700 Output Total 2800 300 Balance -638 400 Result Diagrams: 08/08/20 04:28 08/08/20 04:28 Hospitalist ROS - Review of Systems Constitutional: denies: fever, chills - Medication Medications: Active Medications Generic Name Dose Route Start Last Admin Trade Name Freq PRN Reason Stop Dose Admin Acetaminophen 650 mg 08/03/20 14:20 08/07/20 21:08 Acetaminophen 325 Mg Tab PO 650 mg Q4H PRN Administration Headache/Fever/Mild Pain (1-3) Albuterol Sulfate 2 puff 08/05/20 01:00 08/08/20 08:33 Albuterol 200 Puff (6.7gm Inhaler) INH 2 puff [id number] MOOK Administration Amiodarone HCl 400 mg 08/06/20 21:00 08/08/20 08:31 Amiodarone 200 Mg Tab PO 400 mg BID MOOK Administration Apixaban 5 mg 08/06/20 21:00 08/08/20 08:32 Apixaban 5 Mg Tab PO 5 mg BID MOOK Administration Aspirin 81 mg 08/04/20 09:00 08/08/20 08:31 Aspirin 81 Mg Enteric Coated Tablet PO 81 mg DAILY MOOK Administration Dexamethasone 6 mg 08/08/20 09:00 08/08/20 08:32 Dexamethasone 4 Mg/Ml Vial SLOW IVP 6 mg DAILY MOOK Administration Escitalopram Oxalate 10 mg 08/04/20 09:00 08/08/20 08:31 Escitalopram Oxalate 10 Mg Tablet PO 10 mg DAILY MOOK Administration Gabapentin 600 mg 08/04/20 21:00 08/08/20 08:31 Gabapentin 300 Mg Cap PO 600 mg BID MOOK Administration Hydroxyzine HCl 25 mg 08/03/20 21:57 08/08/20 08:34 Hydroxyzine 25 Mg Tab PO 25 mg BIDPRN PRN Administration Anxiety Hyoscyamine Sulfate 0.125 mg 08/06/20 22:09 08/06/20 23:34 Hyoscyamine Sulfate Sl 0.125 Mg Tablet PO 0.125 mg Q4H PRN Administration Bladder Spasms Remdesivir 100 mg/ Sodium 100 mls @ 100 mls/hr 08/05/20 20:00 08/07/20 21:07 Chloride IV 08/08/20 20:59 100 mls 2000 MOOK Administration Milrinone Lactate/Dextrose 100 mls @ 9.027 mls/hr 08/07/20 09:15 08/07/20 22:30 Milrinone Lactate/D5w IVPB 100 mls INF MOOK Administration 0.375 MCG/KG/MIN Dobutamine HCl/Dextrose 250 mls @ 6.328 mls/hr 08/07/20 16:15 08/08/20 08:32 Dobutamine 500 Mg/250 Ml IVPB 250 mls INF MOOK Administration Protocol 2.5 MCG/KG/MIN Vancomycin HCl 1.5 gm/ Device 300 mls @ 200 mls/hr 08/08/20 12:00 08/08/20 12:37 IVPB 300 mls 1200 MOOK Administration Magnesium Oxide 400 mg 08/06/20 21:00 08/08/20 08:31 Magnesium Oxide 400 Mg Tab PO 400 mg BID MOOK Administration Mometasone Furoate/Formoterol Fumar 2 puff 08/03/20 18:30 08/08/20 08:33 Mometasone 200 Mcg/Formoterol 5 Mcg 120 Puff Inhaler INH 2 puff BID-RT MOOK Administration Pantoprazole Sodium 40 mg 08/07/20 09:00 08/08/20 08:31 Pantoprazole 40 Mg Tab PO 40 mg DAILY MOOK Administration Ropinirole HCl 1 mg 08/04/20 21:00 08/07/20 21:08 Ropinirole Hcl 1 Mg Tab PO 1 mg QPM MOOK Administration Tramadol HCl 25 mg 08/07/20 12:24 08/07/20 13:41 Tramadol Hcl 50 Mg Tab PO 25 mg Q6H PRN Administration Severe Pain (7-10) - Exam General Appearance: NAD, awake alert Eye: PERRL, anicteric sclera ENT: normocephalic atraumatic, no oropharyngeal lesions Neck: no JVD Heart: RRR, no murmur, no gallops, no rubs Respiratory: CTAB, no wheezes, no rales, no ronchi Gastrointestinal: soft, non-tender, non-distended, normal bowel sounds Extremities: no cyanosis, no clubbing, no edema Hosp A/P - Plan Chest X ray: pneumonitis right mid lung base and lung zone THis is a 70 year old male with past medical history of systolic CHF, presenting with worsening shortness of breath and decreased urine output. He also gained 7 pounds. #Acute hypoxic respiratory failure secondary to COVID pneumonia and acute systolic and diastolic heart failure #Moderate aortic and mitral regurgitation - dobutamine has been weaned to 2.5 mcg/kg minute and milrinone increased to 0.37 mcg/kg minute - patient is going to be restarted on torsemide 20 mg daliy - continue dexmaethasone and remdesivir day 4 for COVId. Sputum culture showing gram positive cocci in chains. Will await final results FANG on CKD - creatinine improved to 1.5. Torsemide is being restarted today Abdominal pain /Hematuria - resolved Possible CAUTI Urine retention with history of BPH - pastrana catheter was removed due to dislodgement and significant pain. Urine culture growing 100,000 enterococcus. Will start on vancomycin pending urine culture results #History of pacer/defibrillator #Paroxysmal atrial fibrillation - continue amiodarone 400 mg q12 hours per Dr. Avery - continue eliquis Restless leg syndrome - continue ropinirole Anemia - Hb 11.2, stable
[2020-08-08] MEDS: REMDESIVIR (EUA) 100 MG in Sodium Chloride 0.9% 100 ML IV SCH (22:26)
[2020-08-08] MEDS: rOPINIRole HCl 1 MG TAB PO SCH (22:27)
[2020-08-08] MEDS: Acetaminophen 325 MG TAB PO PRN (22:28)
[2020-08-09] MEDS: Albuterol 200 PUFF (6.7GM INHALER) INH SCH ×4 (01:10→18:23)
[2020-08-09 04:49] LABS: #Lymphocytes 0.5 thou/uL (1.20-3.40); #Monocytes 1.2 thou/uL (0.11-0.59); #Neutrophils 10.6 thou/uL (1.40-6.50); %Eosinophils 0.2 % (0.0-10.0); %Lymphocytes 4.3 % (21.0-51.0); %Monocytes 9.7 % (0.0-10.0); %Neutrophils 85.9 % (42.0-75.0); Hemoglobin 11.7 g/dL (14.0-18.0); Mean Corpuscular HGB CONC 31.5 g/dL (32.0-36.0); Mean Corpuscular Hemoglobin 30.7 pg (27.0-31.0); Mean Corpuscular Volume 97.3 fL (78.0-98.0); Mean Platelet Volume 8.9 fL (7.4-10.4); Platelet Count 226 thou/uL (130-400); RBC Distribution Width 11.9 % (11.5-14.5); Red Blood Cell (RBC) Count 3.82 mill/uL (4.70-6.10); White Blood Cell (WBC) Count 12.3 thou/uL (4.8-10.8)
[2020-08-09 05:19] LABS: Anion Gap 15 mmol/L (10-20); BUN (Urea Nitrogen) 41 mg/dL (8.4-25.7); Calc. Creatinine Clearance 47 mL/min (70-130); Calcium 9.2 mg/dL (7.8-10.44); Carbon Dioxide 25 mmol/L (23-31); Chloride 97 mmol/L (98-107); Glucose 127 mg/dL (80-115); Magnesium 2.3 mg/dL (1.6-2.6); Sodium 133 mmol/L (136-145)
[2020-08-09] MEDS: Mometasone 200 MCG/Formoterol 5 MCG 120 PUFF INHALER INH SCH ×2 (06:40→18:23)
[2020-08-09] MEDS: Gabapentin 300 MG CAP PO SCH ×2 (08:52→20:46)
[2020-08-09] MEDS: Escitalopram Oxalate 10 mg Tablet PO SCH (08:52)
[2020-08-09] MEDS: Amiodarone 200 MG TAB PO SCH ×2 (08:53→20:46)
[2020-08-09] MEDS: Apixaban 5 MG TAB PO SCH ×2 (08:53→20:50)
[2020-08-09] MEDS: Aspirin 81 mg Enteric Coated Tablet PO SCH (08:53)
[2020-08-09] MEDS: hydrOXYzine 25 MG TAB PO PRN (08:53)
[2020-08-09] MEDS: Magnesium Oxide 400 MG TAB PO SCH ×2 (08:53→20:47)
[2020-08-09] MEDS: Torsemide 20 MG TAB PO SCH ×2 (08:53→08:57)
[2020-08-09] MEDS: Potassium Chloride 20 MEQ TAB PO SCH (08:53)
[2020-08-09] MEDS: Dexamethasone 4 mg/ml Vial SLOW IVP SCH (08:54)
--- NOTE | 2020-08-09 09:34 | PRG ---
DATE OF SERVICE: 08/09/2020 SUBJECTIVE: The patient tells me that he is having no bladder discomfort or sensation of fullness. He feels he is voiding normally and emptying completely. OBJECTIVE: VITAL SIGNS: Afebrile. Vitals stable. Urine output 2900 overnight for the last 24 hours. ABDOMEN: Soft. No suprapubic or flank tenderness. Normal genital exam. LABORATORY DATA: Creatinine 1.67. This is in line with his previous values. ASSESSMENT AND PLAN: A 70-year-old male with a history of benign prostatic hypertrophy, currently admitted with congestive heart failure exacerbation. Mcgraw catheter had been placed for close monitoring of urine output; however, the patient has been having problems during his hospitalizations recently with delirium and had pulled his catheter overnight between Thursday and Thursday. I was contacted around 4 in the afternoon on Thursday. Notified that his catheter was not draining and he was voiding around it with a bladder scan showing 100 mL residual with the catheter in place. I asked that the catheter be removed. Yesterday, he was emptying well and having no problems. Today, he continues to empty well and is having good urine output. I would avoid Mcgraw catheter at all costs as he will very likely pull it out again. He will need to follow up with me in two or three weeks after discharge. Should his creatinine began to rise, we will need to check for elevated residual before considering Mcgraw catheter. I would like to be contacted before the patient is catheterized in the future. Job ID: [id number]
--- NOTE | 2020-08-09 10:17 | PRG ---
DATE OF SERVICE: 08/09/2020 SERVICE: Advanced Heart Failure Cardiology Consult Service. SUBJECTIVE: Mr. Humberto Sandhu had a good day. He said that as long as he keeps a T-shirt or something that is warm on his chest, his cough does not come. He is, otherwise, breathing well on 2 L oxygen by nasal cannula. He said he was strong enough to walk around his room at least six times. He was able to eat breakfast and make his bed. He is able to urinate on his own without a Mcgraw catheter. His urine culture returned positive with Enterococcus, so vancomycin was started. REVIEW OF SYSTEMS: GENERAL: There is no fever, chills. His cough has decreased. HEENT: There is no change in vision, hearing, or swallowing. CARDIAC: There is no complaint of chest pain, palpitation, or syncope. GI: There is no nausea, vomiting, diarrhea. : He is able to urinate on his own. MUSCULOSKELETAL: He does not have any joint pains or muscle pain. INTEGUMENT: There is no new skin breakdown. NEUROLOGIC: There are no focal deficits or weaknesses. CURRENT MEDICATIONS: Include, 1. Albuterol 2 puffs q.6 hours. 2. Amiodarone 400 mg twice a day. 3. Apixaban 5 mg b.i.d. 4. Aspirin 81 mg daily. 5. Dexamethasone 6 mg IV daily. 6. Dobutamine at 1.25 mcg/kg/minute. 7. Lexapro 10 mg daily. 8. Gabapentin 600 mg b.i.d. 9. Magnesium oxide 400 mg b.i.d. 10. Milrinone currently at 0.375 mcg/kg/minute. 11. Dulera 200/5 mcg combination two puffs b.i.d. 12. Protonix 40 mg daily. 13. K-Dur at 20 mEq daily. 14. Ropinirole 1 mg each evening. 15. Vancomycin at 1.5 g IV q.12 hours. The telemetry was reviewed. There is combination of A-sensed V-paced, A-paced V-paced and a small segment A-sensed V-sensed. There are also PVCs and a few couplets and triplets. OBJECTIVE: VITAL SIGNS: His systolic blood pressure has been above 100. His heart rate is about 84. His blood pressure is 119/80. GENERAL: He is alert and conversational, sitting comfortably in bed. He is not short of breath. HEENT: Shows EOMI. Oropharynx is benign with moist mucosa. He has no teeth. NECK: His JVP is about 10 cm with positive hepatojugular reflux. PULMONARY: There is good air movement. Clear to auscultation bilaterally. HEART: Regular rate and rhythm with occasional irregularity. There is 2/6 holosystolic murmur at the apex. ABDOMEN: Soft, nontender. Positive bowel sounds. EXTREMITIES: Lower extremities without edema, positive dorsalis pedis pulses bilaterally. LABORATORY DATA: His lab valve shows white cell count 12.3, hemoglobin 11.6, platelets 226. His chemistry showed sodium 133, potassium 4.0, chloride 97, bicarb 25, BUN 41, creatinine 1.67. ASSESSMENT: 70-year-old black [place] gentleman, is doing well as expected from combination of COVID-19 pneumonia and also underlying heart failure with reduced ejection fraction. He also has urinary tract infection. Combination of remdesivir and dexamethasone, albuterol, and Dulera seem to be treating his COVID-19 pneumonia and COPD well. His BUN and creatinine are rising again. This could be due to insufficient cardiac output. It could be impacted by vancomycin. Once sufficient blood pressure, we will attempt to make a complete transition to Milrinone today, it is proven that 0.375 mcg/kg/minute Milrinone is not sufficient, we will need to go to a higher dose of 0.5 mcg/kg/minute. We will also hold his loop diuretics for today to protect his kidney. We will need to wait for susceptibility test to be done for more definitive antibiotic therapy. Hopefully, the Enterococcus will be penicillin sensitive. He will likely needed a hospital to hospital transfer. Please see the following for my recommendations. RECOMMENDATIONS: 1. Discontinue dobutamine. 2. Increase Milrinone from 0.375 mcg/minute to 0.5 mcg/kg/minute. 3. Discontinue torsemide for now. May need to add back on tomorrow or switch to spironolactone tomorrow. 4. Please follow up the antibiotic susceptibility, so we can switch off vancomycin to something else. We would like to use something that is more kidney protective. 5. We will contact [facility] about hospital to hospital transfer. It has been a pleasure taking care of Mr. Humberto Sandhu. If you have any questions, please give me a call. The total visitation time is 40 minutes today. Job ID: [id number] MTDD
--- NOTE | 2020-08-09 11:30 | PDOC.HOSPP ---
- Subjective Encounter Date: 08/09/20 Encounter Time: 11:31 Subjective: F/u: COVID The patient has mild productive cough with mild white phlegm. His O2 saturation is 94% on room air. He states he has been walking around his room without oxygen. He has been doing arm and leg exercizes in the bed without any fatigue. He denies chest pain, palpitations, dizziness, or lightheadedness. His dobutamine has been weaned off. Milrinone has been increased He denies abdominal pain, dysuria. - Objective Vital Signs & Weight: Vital Signs (12 hours) Temp Pulse Resp BP Pulse Ox 08/09/20 09:24 20 99 08/09/20 08:34 98 08/09/20 08:00 98.7 F 80 107/77 97 08/09/20 04:00 97.9 F 72 20 116/62 94 L 08/09/20 00:00 97.9 F 75 18 108/62 93 L Weight Weight 177 lb 14.609 oz I&O: 08/08/20 08/09/20 08/10/20 06:59 06:59 06:59 Intake Total 2090 Output Total 2900 Balance -810 Result Diagrams: 08/09/20 04:15 08/09/20 04:15 Hospitalist ROS - Review of Systems Constitutional: denies: fever, chills - Medication Medications: Active Medications Generic Name Dose Route Start Last Admin Trade Name Freq PRN Reason Stop Dose Admin Acetaminophen 650 mg 08/03/20 14:20 08/08/20 22:28 Acetaminophen 325 Mg Tab PO 650 mg Q4H PRN Administration Headache/Fever/Mild Pain (1-3) Albuterol Sulfate 2 puff 08/05/20 01:00 08/09/20 07:42 Albuterol 200 Puff (6.7gm Inhaler) INH 2 puff [id number] MOOK Administration Amiodarone HCl 400 mg 08/06/20 21:00 08/09/20 08:53 Amiodarone 200 Mg Tab PO 400 mg BID MOOK Administration Apixaban 5 mg 08/06/20 21:00 08/09/20 08:53 Apixaban 5 Mg Tab PO 5 mg BID MOOK Administration Aspirin 81 mg 08/04/20 09:00 08/09/20 08:53 Aspirin 81 Mg Enteric Coated Tablet PO 81 mg DAILY MOOK Administration Dexamethasone 6 mg 08/08/20 09:00 08/09/20 08:54 Dexamethasone 4 Mg/Ml Vial SLOW IVP 6 mg DAILY MOOK Administration Escitalopram Oxalate 10 mg 08/04/20 09:00 08/09/20 08:52 Escitalopram Oxalate 10 Mg Tablet PO 10 mg DAILY MOOK Administration Gabapentin 600 mg 08/04/20 21:00 08/09/20 08:52 Gabapentin 300 Mg Cap PO 600 mg BID MOOK Administration Hydroxyzine HCl 25 mg 08/03/20 21:57 08/09/20 08:53 Hydroxyzine 25 Mg Tab PO 25 mg BIDPRN PRN Administration Anxiety Hyoscyamine Sulfate 0.125 mg 08/06/20 22:09 08/06/20 23:34 Hyoscyamine Sulfate Sl 0.125 Mg Tablet PO 0.125 mg Q4H PRN Administration Bladder Spasms Milrinone Lactate/Dextrose 100 mls @ 9.027 mls/hr 08/07/20 09:15 08/08/20 18:11 Milrinone Lactate/D5w IVPB 100 mls INF MOOK Administration 0.375 MCG/KG/MIN Vancomycin HCl 1.5 gm/ Device 300 mls @ 200 mls/hr 08/08/20 12:00 08/08/20 12:37 IVPB 300 mls 1200 MOOK Administration Magnesium Oxide 400 mg 08/06/20 21:00 08/09/20 08:53 Magnesium Oxide 400 Mg Tab PO 400 mg BID MOOK Administration Mometasone Furoate/Formoterol Fumar 2 puff 08/03/20 18:30 08/09/20 06:40 Mometasone 200 Mcg/Formoterol 5 Mcg 120 Puff Inhaler INH 2 puff BID-RT MOOK Administration Pantoprazole Sodium 40 mg 08/07/20 09:00 08/09/20 08:53 Pantoprazole 40 Mg Tab PO 40 mg DAILY MOOK Administration Potassium Chloride 20 meq 08/09/20 09:00 08/09/20 08:53 Potassium Chloride 20 Meq Tab PO 20 meq DAILY MOOK Administration Ropinirole HCl 1 mg 08/04/20 21:00 08/08/20 22:27 Ropinirole Hcl 1 Mg Tab PO 1 mg QPM MOOK Administration Torsemide 20 mg 08/09/20 09:00 08/09/20 08:57 Torsemide 20 Mg Tab PO Not Given DAILY MOOK Tramadol HCl 25 mg 08/07/20 12:24 08/07/20 13:41 Tramadol Hcl 50 Mg Tab PO 25 mg Q6H PRN Administration Severe Pain (7-10) - Exam General Appearance: NAD Heart: RRR, no murmur, no gallops, no rubs Respiratory: CTAB, no wheezes, no rales, no ronchi Gastrointestinal: soft, non-tender, non-distended, normal bowel sounds Extremities: no edema Hosp A/P - Plan Chest X ray: pneumonitis right mid lung base and lung zone THis is a 70 year old male with past medical history of systolic CHF, presenting with worsening shortness of breath and decreased urine output. He also gained 7 pounds. #Acute hypoxic respiratory failure secondary to COVID pneumonia and acute systolic and diastolic heart failure #Moderate aortic and mitral regurgitation - dobutamine has been weaned off and milrinone increased - continue dexmaethasone and remdesivir day 5 for COVId. Sputum culture showing normal respiratory mario alberto. WBC is up to 12, will monitor - patient is now on room air. Will place home oxygen evaluation to see if he will need oxygen on discharge FANG on CKD - creatinine is up to 1.7. Plan to hold torsemide #Abdominal pain /Hematuria - resolved #E faecalis UTI #Urine retention with history of BPH - pastrana catheter was removed due to dislodgement and significant pain. Urine culture growing 100,000 enterococcus susceptible to penicillin. Will discontinue vancomycin and switch to augmentin . WBC is up to 12, will monitor #History of pacer/defibrillator #Paroxysmal atrial fibrillation - continue amiodarone 400 mg q12 hours per Dr. Avery - continue eliquis Restless leg syndrome - continue ropinirole Anemia - Hb 11.7, stable Dispo: hopefully can discharge home soon if creatinine better on milrinone
[2020-08-09] MEDS: Vancomycin 1.5 GRAM/300 ML BAG 1.5 GM in Premix Bag 1 BAG IVPB SCH (12:59)
[2020-08-09] MEDS: Amoxicillin/Potassium Clav 875 MG TAB PO SCH (20:46)
[2020-08-09] MEDS: rOPINIRole HCl 1 MG TAB PO SCH (20:47)
[2020-08-10] MEDS: Albuterol 200 PUFF (6.7GM INHALER) INH SCH ×4 (02:52→17:41)
[2020-08-10 05:43] LABS: Anion Gap 17 mmol/L (10-20); BUN (Urea Nitrogen) 48 mg/dL (8.4-25.7); Calc. Creatinine Clearance 47 mL/min (70-130); Carbon Dioxide 21 mmol/L (23-31); Chloride 97 mmol/L (98-107); Glucose 153 mg/dL (80-115); Hemoglobin 11.5 g/dL (14.0-18.0); Hypochromia SLIGHT = 6-15 cells (100X) (0-5/hpf); Lymphocytes 16 % (21-51); MDiff Complete? YES; Magnesium 2.3 mg/dL (1.6-2.6); Mean Corpuscular HGB CONC 31.1 g/dL (32.0-36.0); Mean Corpuscular Hemoglobin 29.9 pg (27.0-31.0); Mean Corpuscular Volume 96.4 fL (78.0-98.0); Mean Platelet Volume 9.4 fL (7.4-10.4); Monocytes 11 % (0-10); Neutrophil 73 % (42-75); Platelet Count 244 thou/uL (130-400); Platelet Morphology Comment Appears Adequate; Potassium 4.3 mmol/L (3.5-5.1); RBC Distribution Width 12.2 % (11.5-14.5); Red Blood Cell (RBC) Count 3.83 mill/uL (4.70-6.10); Sodium 131 mmol/L (136-145); White Blood Cell (WBC) Count 12.4 thou/uL (4.8-10.8)
[2020-08-10] MEDS: Mometasone 200 MCG/Formoterol 5 MCG 120 PUFF INHALER INH SCH ×2 (06:08→17:41)
[2020-08-10] MEDS: Apixaban 5 MG TAB PO SCH ×2 (09:16→19:40)
[2020-08-10] MEDS: Amoxicillin/Potassium Clav 875 MG TAB PO SCH ×2 (09:16→19:40)
[2020-08-10] MEDS: Amiodarone 200 MG TAB PO SCH ×2 (09:16→19:40)
[2020-08-10] MEDS: Escitalopram Oxalate 10 mg Tablet PO SCH (09:16)
[2020-08-10] MEDS: Aspirin 81 mg Enteric Coated Tablet PO SCH (09:16)
[2020-08-10] MEDS: Gabapentin 300 MG CAP PO SCH ×2 (09:16→19:39)
[2020-08-10] MEDS: Magnesium Oxide 400 MG TAB PO SCH ×2 (09:16→19:40)
[2020-08-10] MEDS: Potassium Chloride 20 MEQ TAB PO SCH (09:17)
[2020-08-10] MEDS: Dexamethasone 4 mg/ml Vial SLOW IVP SCH (09:17)
[2020-08-10] MEDS ORDERED: Furosemide 40 MG/4 ML VIAL SLOW IVP PRN (11:02)
[2020-08-10] MEDS ORDERED: DOBUTamine 500 mg/250 ml 500 MG in Premix Bag 1 BAG IVPB SCH (11:15)
--- NOTE | 2020-08-10 12:38 | PRG ---
DATE OF SERVICE: 08/10/2020 SUBJECTIVE: Mr. Humberto Sandhu according to him, had a good day. He was able to ambulate about the room a bit. He was able to make his bed had a good breakfast. He says his coughing episodes has decreased. As far as he knows, he does not feel like that he has any severe shortness of breath. However, he does have more trouble with sleeping at night. REVIEW OF SYSTEMS: GENERAL: There is no fever or chills. HEENT: There is no change in vision, hearing, or swallowing. PULMONARY: Please see HPI. CARDIAC: There is no palpitation, chest pain or syncope. GI: There is no nausea, vomiting or diarrhea. : He is able to urinate on his own. INTEGUMENT: There is no new skin breakdown. NEUROLOGIC: There are no new focal deficits or weaknesses. CURRENT MEDICATIONS: Include 1. Albuterol 2 puffs q.6 hours. 2. Amiodarone 400 mg b.i.d. for 10 g low. 3. Augmentin 875 q.12 hours. 4. Apixaban 5 mg b.i.d. 5. Aspirin 81 mg daily. 6. Dexamethasone 6 mg IV daily. 7. Gabapentin 600 mg b.i.d. 8. Magnesium oxide 400 mg b.i.d. 9. Milrinone currently at 0.5 mcg/kg/minute. 10. Dulera 200/5 mcg combination 2 puffs b.i.d. 11. Protonix 40 mg daily. 12. Potassium chloride/K-Dur 20 mEq daily. 13. Ropinirole 1 mg each evening. His telemetry was reviewed. There is a mixture of rhythm. There is predominantly A paced, V paced. There is A-sensed V-paced. There are a few A-sensed, V-sensed and there are frequent PVCs. There are several instances of 3 to 4 beats of wide complex tachycardia. OBJECTIVE: VITAL SIGNS: His latest vitals are heart rate at 80, blood pressure 103/71. He had has oxygen 1 L by nasal cannula, saturating about 95%. GENERAL: He is alert and conversational, reclining comfortably in bed. HEENT: Show EOMI. 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 In case of mouth, he does not have any teeth. NECK: His JVP is more elevated today, more like 12 cm. PULMONARY: There is new appearance of basilar crackles. There is also return of slight wheeze. CARDIAC: Regular rate and rhythm with occasional irregularity with 2/6 holosystolic murmur at the apex. ABDOMEN: Soft, nontender. Positive bowel sounds. EXTREMITIES: Lower extremities, positive dorsalis pedis pulses, but slight pedal edema. LABORATORY DATA: His laboratory values are white cell count 12.4, hemoglobin 11.5, and platelet at 244. His lymphocyte percent is 16%, it is a little bit higher. His chemistry has a sodium 131, potassium 4.3, BUN 48, creatinine 1.69. His BNP has decreased from 2213 down to 1734. ASSESSMENT: 70-year-old gentleman is doing his well as expected from COVID-19 pneumonia perspective. His cough has dissipated. His oxygen needs have not gone up. So far, he seem to be doing well. However, his cardiac status is worsening. He has likely [employer] stage D and also [place] heart class IV heart failure with reduced ejection fraction. His LVEF only 15%. Milrinone was titrated up to 0.5 mcg/kg/minute. He tolerated uptitration. However, it did not have intended effect. His BUN and creatinine are still climbing. His sodium is still dropping. With his blood pressure now a little lower, we have no choice, but increase the augmentation. We will need to use a combination of dobutamine and milrinone. This addition of inotrope will place him at INTERMACS class II heart failure with respect to LVAD evaluation. We have been in communication with [facility]. With this new development, they believe that he needs to be transferred to their ICU for possible mechanical circulatory support. This will be followed by an urgent left ventricular assist device evaluation. RECOMMENDATIONS Please see the following for my recommendations: 1. Decrease milrinone to 0.375 mcg/kg/minute. 2. Restart dobutamine at 2.5 mcg/kg/minute. 3. Lasix 40 mg IV one dose after dobutamine has been on for 2 hours. 4. Continue amiodarone 400 mg p.o. b.i.d. for 10 gram load; afterwards, continue at 200 mg daily 5. We will need to watch his blood pressure and his white cell count. Either the blood pressure starts to drop or white cell counts are going up, we will need to pull his PICC. At that point, I will replace the PICC with a central line, so he can get his drips. It has been a pleasure taking care of Mr. Humberto Sandhu. If any questions, please give me a call. This is extended visit that took about 60 minutes. This includes patient counseling, coordinating care with primary team and coordinating care with [facility]. Job ID: [id number] MTDD
--- NOTE | 2020-08-10 14:51 | PDOC.HOSPP ---
- Subjective Encounter Date: 08/10/20 Encounter Time: 10:00 Subjective: F/u: heart failure, COVID Patient states he feels pretty good. He is able to walk around the room without significant shortness of breath. He has minimal cough. I discussed that Dr. Avery is wanting the patient to be transferred to [facility] at this time due to the severity of his heart failure. Patient is in agreement. - Objective Vital Signs & Weight: Vital Signs (12 hours) Temp Pulse Resp BP Pulse Ox 08/10/20 12:00 98.3 F 80 21 H 98/67 95 08/10/20 09:10 95 08/10/20 08:16 96 08/10/20 08:00 98.9 F 80 19 103/71 95 08/10/20 06:08 83 08/10/20 03:08 98.1 F 80 24 H 102/76 93 L Weight Weight 181 lb 12.8 oz I&O: 08/09/20 08/10/20 08/11/20 06:59 06:59 06:59 Intake Total 2090 2364 Output Total 2900 2200 Balance -810 164 Result Diagrams: 08/10/20 04:37 08/10/20 04:37 Hospitalist ROS - Review of Systems Constitutional: denies: fever, chills - Medication Medications: Active Medications Generic Name Dose Route Start Last Admin Trade Name Freq PRN Reason Stop Dose Admin Acetaminophen 650 mg 08/03/20 14:20 08/08/20 22:28 Acetaminophen 325 Mg Tab PO 650 mg Q4H PRN Administration Headache/Fever/Mild Pain (1-3) Albuterol Sulfate 2 puff 08/05/20 01:00 08/10/20 12:23 Albuterol 200 Puff (6.7gm Inhaler) INH 2 puff [id number] MOOK Administration Amiodarone HCl 400 mg 08/06/20 21:00 08/10/20 09:16 Amiodarone 200 Mg Tab PO 08/16/20 23:59 400 mg BID MOOK Administration Amoxicillin/Clavulanate Potassium 875 mg 08/09/20 21:00 08/10/20 09:16 Amoxicillin/Potassium Clav 875 Mg Tab PO 875 mg Q12HR MOOK Administration Apixaban 5 mg 08/06/20 21:00 08/10/20 09:16 Apixaban 5 Mg Tab PO 5 mg BID MOOK Administration Aspirin 81 mg 08/04/20 09:00 08/10/20 09:16 Aspirin 81 Mg Enteric Coated Tablet PO 81 mg DAILY MOOK Administration Dexamethasone 6 mg 08/08/20 09:00 08/10/20 09:17 Dexamethasone 4 Mg/Ml Vial SLOW IVP 6 mg DAILY MOOK Administration Escitalopram Oxalate 10 mg 08/04/20 09:00 08/10/20 09:16 Escitalopram Oxalate 10 Mg Tablet PO 10 mg DAILY MOOK Administration Gabapentin 600 mg 08/04/20 21:00 08/10/20 09:16 Gabapentin 300 Mg Cap PO 600 mg BID MOOK Administration Hydroxyzine HCl 25 mg 08/03/20 21:57 08/09/20 08:53 Hydroxyzine 25 Mg Tab PO 25 mg BIDPRN PRN Administration Anxiety Hyoscyamine Sulfate 0.125 mg 08/06/20 22:09 08/06/20 23:34 Hyoscyamine Sulfate Sl 0.125 Mg Tablet PO 0.125 mg Q4H PRN Administration Bladder Spasms Milrinone Lactate/Dextrose 100 mls @ 9.027 mls/hr 08/07/20 09:15 08/10/20 09:19 Milrinone Lactate/D5w IVPB 100 mls INF MOOK Administration 0.375 MCG/KG/MIN Dobutamine HCl/Dextrose 500 mg 250 mls @ 6.185 mls/hr 08/10/20 11:15 08/10/20 12:24 / Device IVPB 250 mls INF MOOK Administration Protocol 2.5 MCG/KG/MIN Magnesium Oxide 400 mg 08/06/20 21:00 08/10/20 09:16 Magnesium Oxide 400 Mg Tab PO 400 mg BID MOOK Administration Mometasone Furoate/Formoterol Fumar 2 puff 08/03/20 18:30 08/10/20 06:08 Mometasone 200 Mcg/Formoterol 5 Mcg 120 Puff Inhaler INH 2 puff BID-RT MOOK Administration Pantoprazole Sodium 40 mg 08/07/20 09:00 08/10/20 09:16 Pantoprazole 40 Mg Tab PO 40 mg DAILY MOOK Administration Potassium Chloride 20 meq 08/09/20 09:00 08/10/20 09:17 Potassium Chloride 20 Meq Tab PO 20 meq DAILY MOOK Administration Ropinirole HCl 1 mg 08/04/20 21:00 08/09/20 20:47 Ropinirole Hcl 1 Mg Tab PO 1 mg QPM MOOK Administration Tramadol HCl 25 mg 08/07/20 12:24 08/07/20 13:41 Tramadol Hcl 50 Mg Tab PO 25 mg Q6H PRN Administration Severe Pain (7-10) - Exam General Appearance: NAD, awake alert Eye: PERRL, anicteric sclera ENT: normocephalic atraumatic, no oropharyngeal lesions Neck: no JVD Heart: RRR, no murmur, no gallops, no rubs Respiratory: CTAB, no wheezes, no rales, no ronchi Gastrointestinal: soft, non-tender, non-distended, normal bowel sounds, no palpable masses, no hepatomegaly, no splenomegaly, no bruit Extremities: no edema Skin: normal turgor, no rashes Neurological: cranial nerve grossly intact, normal sensation to touch, no weakness Hosp A/P - Plan Chest X ray: pneumonitis right mid lung base and lung zone THis is a 70 year old male with past medical history of systolic CHF, presenting with worsening shortness of breath and decreased urine output. He also gained 7 pounds. #Acute hypoxic respiratory failure secondary to COVID pneumonia and acute systolic and diastolic heart failure #Moderate aortic and mitral regurgitation - dobutamine has been restarted today due to worsening kidney function. HE is on milrinone as well. Per Dr. Avery, the patient will be transferred to [facility] for evaluation of an LVAD - PICC Line is in place for originally for outpatient dobutamine. WBC is 12 currently, patient has no new symptoms. Will discontinue steroids. If leukocytosis persistent, Dr. Avery may remove PICC and place central line FANG on CKD - creatinine is still 1.6. Dobutamine restarted and milrinone has been decreased Hyponatremia - sodium is down to 131. Milrinone decreased and dobutamine has been increased #Abdominal pain /Hematuria - resolved #E faecalis UTI #Urine retention with history of BPH - pastrana catheter was removed due to dislodgement and significant pain. Urine culture growing 100,000 enterococcus susceptible to penicillin. Dysuria has resolved. Continue augmentin due to leukocytosis #History of pacer/defibrillator #Paroxysmal atrial fibrillation - continue amiodarone 400 mg q12 hours per Dr. Avery - continue eliquis Restless leg syndrome - continue ropinirole Anemia - Hb 11.7, stable Dispo: plan to transfer to [facility]
[2020-08-10] MEDS: rOPINIRole HCl 1 MG TAB PO SCH (19:39)
[2020-08-11] MEDS: Albuterol 200 PUFF (6.7GM INHALER) INH SCH ×4 (02:13→17:32)
[2020-08-11 05:44] LABS: Anion Gap 15 mmol/L (10-20); BUN (Urea Nitrogen) 41 mg/dL (8.4-25.7); Calc. Creatinine Clearance 48 mL/min (70-130); Calcium 8.6 mg/dL (7.8-10.44); Carbon Dioxide 23 mmol/L (23-31); Chloride 100 mmol/L (98-107); Glucose 155 mg/dL (80-115); Magnesium 2.3 mg/dL (1.6-2.6); Potassium 4.3 mmol/L (3.5-5.1); Sodium 134 mmol/L (136-145)
[2020-08-11] MEDS: Mometasone 200 MCG/Formoterol 5 MCG 120 PUFF INHALER INH SCH ×2 (05:44→17:33)
[2020-08-11 06:33] LABS: Hemoglobin 11.3 g/dL (14.0-18.0); Lymphocytes 4 % (21-51); MDiff Complete? YES; Mean Corpuscular HGB CONC 31.5 g/dL (32.0-36.0); Mean Corpuscular Hemoglobin 30.2 pg (27.0-31.0); Mean Corpuscular Volume 96.1 fL (78.0-98.0); Mean Platelet Volume 8.9 fL (7.4-10.4); Metamyelocyte 3 % (0-0); Monocytes 11 % (0-10); Neutrophil 82 % (42-75); Platelet Count 238 thou/uL (130-400); Platelet Morphology Comment Appears Adequate; RBC Distribution Width 12.3 % (11.5-14.5); RBC Morphology Normal; Red Blood Cell (RBC) Count 3.73 mill/uL (4.70-6.10); White Blood Cell (WBC) Count 11.2 thou/uL (4.8-10.8)
[2020-08-11] MEDS: Gabapentin 300 MG CAP PO SCH (09:20)
[2020-08-11] MEDS: Aspirin 81 mg Enteric Coated Tablet PO SCH (09:20)
[2020-08-11] MEDS: Potassium Chloride 20 MEQ TAB PO SCH (09:21)
[2020-08-11] MEDS: Amoxicillin/Potassium Clav 875 MG TAB PO SCH (09:21)
[2020-08-11] MEDS: Magnesium Oxide 400 MG TAB PO SCH (09:21)
[2020-08-11] MEDS: Apixaban 5 MG TAB PO SCH (09:21)
[2020-08-11] MEDS: Escitalopram Oxalate 10 mg Tablet PO SCH (09:21)
[2020-08-11] MEDS: Amiodarone 200 MG TAB PO SCH (09:21)
--- NOTE | 2020-08-11 12:55 | PDOC.HOSPP ---
- Objective Vital Signs & Weight: Vital Signs (12 hours) Temp Pulse Resp BP BP Pulse Ox 08/11/20 12:20 98 F 82 22 H 116/74 98 08/11/20 09:20 98 08/11/20 08:30 98 08/11/20 08:00 98 F 80 17 111/73 98 08/11/20 05:06 95 08/11/20 04:00 100/67 Weight Weight 180 lb 4.8 oz I&O: 08/10/20 08/11/20 08/12/20 06:59 06:59 06:59 Intake Total 2364 2167.7 Output Total 2200 2600 Balance 164 -432.3 Result Diagrams: 08/11/20 04:54 08/11/20 04:54 Hospitalist ROS - Medication Medications: Active Medications Generic Name Dose Route Start Last Admin Trade Name Freq PRN Reason Stop Dose Admin Acetaminophen 650 mg 08/03/20 14:20 08/08/20 22:28 Acetaminophen 325 Mg Tab PO 650 mg Q4H PRN Administration Headache/Fever/Mild Pain (1-3) Albuterol Sulfate 2 puff 08/05/20 01:00 08/11/20 06:10 Albuterol 200 Puff (6.7gm Inhaler) INH 2 puff [id number] MOOK Administration Amiodarone HCl 400 mg 08/06/20 21:00 08/11/20 09:21 Amiodarone 200 Mg Tab PO 08/16/20 23:59 400 mg BID MOOK Administration Amoxicillin/Clavulanate Potassium 875 mg 08/09/20 21:00 08/11/20 09:21 Amoxicillin/Potassium Clav 875 Mg Tab PO 875 mg Q12HR MOOK Administration Apixaban 5 mg 08/06/20 21:00 08/11/20 09:21 Apixaban 5 Mg Tab PO 5 mg BID MOOK Administration Aspirin 81 mg 08/04/20 09:00 08/11/20 09:20 Aspirin 81 Mg Enteric Coated Tablet PO 81 mg DAILY MOOK Administration Escitalopram Oxalate 10 mg 08/04/20 09:00 08/11/20 09:21 Escitalopram Oxalate 10 Mg Tablet PO 10 mg DAILY MOOK Administration Gabapentin 600 mg 08/04/20 21:00 08/11/20 09:20 Gabapentin 300 Mg Cap PO 600 mg BID MOOK Administration Hydroxyzine HCl 25 mg 08/03/20 21:57 08/09/20 08:53 Hydroxyzine 25 Mg Tab PO 25 mg BIDPRN PRN Administration Anxiety Hyoscyamine Sulfate 0.125 mg 08/06/20 22:09 08/06/20 23:34 Hyoscyamine Sulfate Sl 0.125 Mg Tablet PO 0.125 mg Q4H PRN Administration Bladder Spasms Milrinone Lactate/Dextrose 100 mls @ 9.027 mls/hr 08/07/20 09:15 08/11/20 05:53 Milrinone Lactate/D5w IVPB 100 mls INF MOOK Administration 0.375 MCG/KG/MIN Dobutamine HCl/Dextrose 500 mg 250 mls @ 6.185 mls/hr 08/10/20 11:15 08/10/20 12:24 / Device IVPB 250 mls INF MOOK Administration Protocol 2.5 MCG/KG/MIN Magnesium Oxide 400 mg 08/06/20 21:00 08/11/20 09:21 Magnesium Oxide 400 Mg Tab PO 400 mg BID MOOK Administration Mometasone Furoate/Formoterol Fumar 2 puff 08/03/20 18:30 08/11/20 05:44 Mometasone 200 Mcg/Formoterol 5 Mcg 120 Puff Inhaler INH 2 puff BID-RT MOOK Administration Pantoprazole Sodium 40 mg 08/07/20 09:00 08/11/20 09:20 Pantoprazole 40 Mg Tab PO 40 mg DAILY MOOK Administration Potassium Chloride 20 meq 08/09/20 09:00 08/11/20 09:21 Potassium Chloride 20 Meq Tab PO 20 meq DAILY MOOK Administration Ropinirole HCl 1 mg 08/04/20 21:00 08/10/20 19:39 Ropinirole Hcl 1 Mg Tab PO 1 mg QPM MOOK Administration Tramadol HCl 25 mg 08/07/20 12:24 08/07/20 13:41 Tramadol Hcl 50 Mg Tab PO 25 mg Q6H PRN Administration Severe Pain (7-10)
--- NOTE | 2020-08-11 12:59 | PDOC.DS.DS ---
Provider - Provider Date of Admission: 08/03/20 15:59 Admitting Provider: Richa Ruiz MD Course - Hospital Course Hospital Course: 70 year old male with past medical history of systolic CHF, presented with worsening shortness of breath and decreased urine output. He also gained 7 pounds. #Acute hypoxic respiratory failure secondary to COVID pneumonia and acute systolic and diastolic heart failure #Moderate aortic and mitral regurgitation -He is continued to be on dobutamine as well as milrinone. - patient will be transferred to [facility] for evaluation of an LVAD - PICC Line is in place for originally for outpatient dobutamine. FANG on CKD -Stable and creatinine remains around 1.67 for the last 3 days. Hyponatremia -Improved to 134 #Abdominal pain /Hematuria - resolved #E faecalis UTI #Urine retention with history of BPH - Urine culture growing 100,000 enterococcus susceptible to penicillin. Continue augmentin to complete the course #History of pacer/defibrillator #Paroxysmal atrial fibrillation - continue amiodarone 400 mg q12 hours and will be titrated at the receiving hospital as a loading dose; he is also started on amiodarone 200 mg daily - continue eliquis Restless leg syndrome - continue ropinirole Anemia - Hb 11.7, stable He is likely to be transferred to [facility] for LVAD. Discharge time over 30 minutes. - Labs Lab Results: 08/11/20 04:54 08/11/20 04:54 Abnormal Lab Results - Last 48 hrs 08/10/20 04:37: Sodium 131 L, Chloride 97 L, Carbon Dioxide 21 L, BUN 48 H, Creatinine 1.69 H 08/10/20 04:37: WBC 12.4 H, RBC 3.83 L, Hgb 11.5 L, Hct 37.0 L, MCHC 31.1 L, Lymphocytes % (Manual) 16 L, Monocytes % (Manual) 11 H 08/10/20 04:37: B-Natriuretic Peptide 1734.4 H 08/11/20 04:54: Sodium 134 L, BUN 41 H, Creatinine 1.67 H 08/11/20 04:54: WBC 11.2 H, RBC 3.73 L, Hgb 11.3 L, Hct 35.8 L, MCHC 31.5 L, Neutrophils % (Manual) 82 H, Lymphocytes % (Manual) 4 L, Monocytes % (Manual) 11 H 08/11/20 04:54: B-Natriuretic Peptide 2169.4 H Microbiology - Entire Visit 08/07/20 09:37 Sputum - Neck Respiratory Culture - Final 08/07/20 10:38 Urine clean catch Urine Culture - Final Enterococcus faecalis - Physical Exam Vitals: Vital Signs (12 hours) Temp Pulse Resp BP BP Pulse Ox 08/11/20 12:20 98 F 82 22 H 116/74 98 08/11/20 09:20 98 08/11/20 08:30 98 08/11/20 08:00 98 F 80 17 111/73 98 08/11/20 05:06 95 08/11/20 04:00 100/67 Weight Weight 180 lb 4.8 oz Physical Exam: The patient was seen and examined on the day of discharge. Doing well this morning. Is planning to be discharged to [facility] for LVAD. Plan - Discharge Medications Prescriptions: Amoxicillin/Potassium Clav [Augmentin] 875 mg PO Q12HR 5 Days #10 tab Apixaban [Eliquis] 5 mg PO BID 30 Days #60 tab Home Medications: Medication Instructions Recorded Confirmed Type Ipratropium/Albuterol Sulfate 3 ml NEB [id number] PRN #2 neb 07/31/19 08/03/20 Rx [DuoNeb] Fluticasone/Vilanterol [Breo 1 inhaler IH DAILY 07/23/20 08/03/20 History Ellipta 200-25 Mcg INH] Gabapentin [Neurontin] 600 mg PO BID 07/23/20 08/03/20 History Ventolin HFA Inhaler 2 puff IH PRN PRN 07/23/20 08/03/20 History Potassium Chloride [K-Dur] 20 meq PO QAM-WM #30 tab 07/24/20 08/03/20 Rx Sacubitril/Valsartan [Entresto 24 0.5 tab PO BID #60 tab 07/24/20 08/03/20 Rx mg-26 mg Tablet] hydrOXYzine [Atarax] 25 mg PO BID PRN tab 07/24/20 08/03/20 Rx Amiodarone [Cordarone] 200 mg PO DAILY 08/03/20 08/03/20 History Escitalopram Oxalate [Lexapro] 10 mg PO DAILY 08/03/20 08/03/20 History Ferrous Sulfate [Ferosul] 325 mg PO DAILY 08/03/20 08/03/20 History Pantoprazole [Protonix] 40 mg PO DAILY 08/03/20 08/03/20 History Tamsulosin HCl [Flomax] 0.4 mg PO DAILY-AC 08/03/20 08/03/20 History rOPINIRole HCl [Requip] 1 mg PO QPM 08/03/20 08/03/20 History Amoxicillin/Potassium Clav 875 mg PO Q12HR 5 Days #10 tab 08/11/20 Rx [Augmentin] Apixaban [Eliquis] 5 mg PO BID 30 Days #60 tab 08/11/20 Rx Furosemide [Lasix] 40 mg SLOW IVP 1400 vial 08/11/20 Rx Milrinone Lactate/D5W 20 ml IVPB INF 10 Days #10 bag 08/11/20 Rx Pantoprazole [Protonix] 40 mg PO DAILY tab 08/11/20 Rx Allergies: codeine Allergy (Mild, Verified 02/19/20 05:06) duloxetine [From Cymbalta] Allergy (Verified 02/19/20 05:06) mirtazapine [From Remeron] Allergy (Verified 02/19/20 05:06) niacin Allergy (Verified 02/19/20 05:06) - Discharge Instructions Activity:: Activity as Tolerated Nourishment:: Heart Healthy Diet - Follow up Plan Referrals: Cardiac Rehab - [facility] [Outside] - 7 Days ( Your doctor has ordered outpatient cardiac rehab for you to begin within 1-2 weeks after you go home from the hospital. The location nearest to you is the [facility]. The front office in [place] will call you in 3-5 days to get you scheduled for your evaluation. If you do not receive a call, please reach out to us at [phone] and request an appointment. ) Disposition: OTHER HOSPITAL IN Quality - Care Measures CORE MEASURES:: N/A
[2020-08-11] MEDS ORDERED: Furosemide 40 MG/4 ML VIAL SLOW IVP SCH (14:00)
--- NOTE | 2020-08-11 14:10 | PRG ---
DATE OF SERVICE: 08/11/2020 SUBJECTIVE: Mr. Humberto Sandhu had a good day. He was able to ambulate about the room. His blood pressure increased after resumption of dobutamine. He tolerated Lasix 40 mg IV without any difficulty. He had a large volume output. His blood pressure decreased some, but was acceptable. Afterwards, he felt good. His orthopnea also lessened after the Lasix. REVIEW OF SYSTEMS: GENERAL: There are no fever or chills. HEENT: There is no change in vision, hearing, or swallowing. PULMONARY: Please see HPI. He is breathing easier. CARDIAC: There is no complaint of chest pain, palpitations, or syncope. GI: There is no nausea, vomiting, or diarrhea. : He is able to urinate well on his own. MUSCULOSKELETAL: There are no muscle or joint pains. INTEGUMENT: There is no skin breakdown. NEUROLOGIC: There are no focal deficits or weaknesses. CURRENT MEDICATIONS: 1. Albuterol 2 puffs q.6 hours. 2. Amiodarone 400 mg twice a day for a 10 g load. 3. Augmentin 875 p.o. q.12 hours. 4. Apixaban 5 mg p.o. b.i.d. 5. Aspirin 81 mg daily. 6. Dobutamine 2.5 mcg/kg/minute. 7. Milrinone 0.375 mcg/kg/minute. 8. Lexapro 10 mg daily. 9. Gabapentin 600 mg b.i.d. 10. Magnesium oxide 400 mg b.i.d. 11. Dulera 200 mcg/5 mcg combination 2 puffs b.i.d. 12. Protonix 40 mg p.o. daily. 13. K-Dur 20 mEq daily. 14. Ropinirole 1 mg p.o. each night. Telemetry was reviewed. It showed combination of A paced V paced, A sensed V paced, and also occasional PVC. There were 2 or 3 incidents of triplets. Besides that, there are no concerning arrhythmias. PHYSICAL EXAMINATION: VITAL SIGNS: His blood pressure has been varying a bit. The latest blood pressure at bedside was 111/67 with paced heart rate of 80 beats per minute. His 24-hour I/O was 2167 in and 2600 out, so his net negative of 432. GENERAL: He is alert and conversational. He is less short of breath today. He looks more comfortable today in comparison to yesterday. HEENT: EOMI. His right eye is blind. His oropharynx has moist mucosa. He has no teeth. NECK: JVP is lower today at about 11 cm. PULMONARY: He has had much better air movement today. His crackle has decreased significantly, however, there are still some basilar crackles. CARDIAC: mostly regular rate and rhythm, occasional irregularities, normal S1/S2, 2/6 holosystolic murmur at the apex ABDOMEN: Soft, nontender. Positive bowel sounds. EXTREMITIES: Lower extremities have minimal or no edema at all. LABORATORY VALUES: White cell count 11.3, hemoglobin 11.3 , and his platelets 238. His chemistry shows sodium 134, potassium 4.3, chloride 100, bicarb 25, BUN 41, creatinine 1.67. His magnesium is 2.3, so he has improved renal function. ASSESSMENT: A 70-year-old, -[place] gentleman is doing as well as expected from from Coronavirus. Dexamethasone and remdesivir have helped, apparently though they are both off for now. He has likely [place] [employer] stage D and also [place] Heart Association class 4 heart failure with reduced ejection fraction due to nonischemic cardiomyopathy. He now requires both dobutamine and milrinone to sustain blood pressure and having adequate cardiac output. His volume overload also has decreased, but he can still use a little bit more diuresis. With known history of ventricular tachycardia with missed ventricular tachycardia ablation in 2020, we will need to continue with amiodarone 400 mg twice a day until 10 g loading is reached. For now, we will aim to transfer the patient to [facility] for urgent left ventricular assist device workup. RECOMMENDATIONS: Please see the following for my recommendations. 1. Continue dobutamine at 2.5 mcg/kg/minute. 2. Continue milrinone at 0.375 mcg/kg/minute. 3. Please give Lasix 40 mg IV one dose after lunch. This seemed to be working well yesterday. 4. Continue with amiodarone 400 mg p.o. b.i.d. for 10 g load, and after 10 g has reached, go to 200 mg daily. 5. Please look for when [facility] has financially cleared him and is ready to accept him. We note that waiting for an ICU bed may take some time. In the meantime, we will keep him as much perfused as possible. It has been a pleasure taking care of . Humberto Sandhu. If you have any questions, please give me a call. The total visitation time is 40 minutes. Job ID: [id number] MTDD
[2020-08-11 16:13] VITALS: BP 115/81; TEMP 98.6
[2020-08-17] MEDS ORDERED: Amiodarone 200 MG TAB PO SCH (09:00)
--- NOTE | 2020-08-25 22:16 | EKG ---
Test Reason : Blood Pressure : / mmHG Vent. Rate : 091 BPM Atrial Rate : 091 BPM P-R Int : 100 ms QRS Dur : 176 ms QT Int : 442 ms P-R-T Axes : 079 015 062 degrees QTc Int : 543 ms Electronic ventricular pacemaker Confirmed by MARIA G RODRÍGUEZ DO ([id number]), graphic editor TOMY NDIAYE ([id number]) on 08/25/2020 10:15:52 PM Referred By: Confirmed By:MARIA G RODRÍGUEZ DO
== END 2020-08-11 18:00 | disposition short-term general hospital (02) | DRG 177 ==
LOC: ERS 11:30 → ERHOLD 15:59 → 2NO 19:38 → 2SW 08-04 20:55
PROVIDERS: ADMIT Internal Medicine; ATTEND Internal Medicine
PROC: 8E0ZXY6 Isolation (ICD-10-PCS; principal; 2020-08-03)
PROC: 0T9B70Z Drainage of Bladder with Drainage Device, Via Natural or Artificial Opening (ICD-10-PCS; 2020-08-03)
PROC: 3E033XZ Introduction of Vasopressor into Peripheral Vein, Percutaneous Approach (ICD-10-PCS; 2020-08-03)
PROC: XW033E5 Introduction of Remdesivir Anti-infective into Peripheral Vein, Percutaneous Approach, New Technology Group 5 (ICD-10-PCS; 2020-08-04)
PROC: 4B02XTZ Measurement of Cardiac Defibrillator, External Approach (ICD-10-PCS; 2020-08-04)
PROC: 02HV33Z Insertion of Infusion Device into Superior Vena Cava, Percutaneous Approach (ICD-10-PCS; 2020-08-06)
PROC: B548ZZA Ultrasonography of Superior Vena Cava, Guidance (ICD-10-PCS; 2020-08-06)
PROC: 0TPBX0Z Removal of Drainage Device from Bladder, External Approach (ICD-10-PCS; 2020-08-08)
DX: U07.1 COVID-19 (principal); I21.A1 Myocardial infarction type 2; J12.82 Pneumonia due to coronavirus disease 2019; I50.43 Acute on chronic combined systolic (congestive) and diastolic (congestive) heart failure; J96.21 Acute and chronic respiratory failure with hypoxia; N39.0 Urinary tract infection, site not specified; I13.0 Hypertensive heart and chronic kidney disease with heart failure and stage 1 through stage 4 chronic kidney disease, or unspecified chronic kidney disease; N17.9 Acute kidney failure, unspecified; N18.4 Chronic kidney disease, stage 4 (severe); E87.1 Hypo-osmolality and hyponatremia; J44.1 Chronic obstructive pulmonary disease with (acute) exacerbation; J44.0 Chronic obstructive pulmonary disease with (acute) lower respiratory infection; I42.8 Other cardiomyopathies; I08.0 Rheumatic disorders of both mitral and aortic valves; I48.0 Paroxysmal atrial fibrillation; G25.81 Restless legs syndrome; D63.1 Anemia in chronic kidney disease; I25.10 Atherosclerotic heart disease of native coronary artery without angina pectoris; K21.9 Gastro-esophageal reflux disease without esophagitis; E11.22 Type 2 diabetes mellitus with diabetic chronic kidney disease; E11.42 Type 2 diabetes mellitus with diabetic polyneuropathy; B95.2 Enterococcus as the cause of diseases classified elsewhere; Z95.810 Presence of automatic (implantable) cardiac defibrillator; Z88.5 Allergy status to narcotic agent; Z88.1 Allergy status to other antibiotic agents; Z79.82 Long term (current) use of aspirin; Z79.01 Long term (current) use of anticoagulants; Z79.899 Other long term (current) drug therapy; Z95.5 Presence of coronary angioplasty implant and graft; Z88.8 Allergy status to other drugs, medicaments and biological substances; Z99.81 Dependence on supplemental oxygen; Z86.73 Personal history of transient ischemic attack (TIA), and cerebral infarction without residual deficits; Z79.51 Long term (current) use of inhaled steroids; N40.1 Benign prostatic hyperplasia with lower urinary tract symptoms; F17.210 Nicotine dependence, cigarettes, uncomplicated; I50.84 End stage heart failure; R33.8 Other retention of urine; I49.3 Ventricular premature depolarization
CPT/HCPCS: 36415; 36569; 71045; 80048; 80053; 81001; 82550; 82553; 82728; 83735; 83880; 84443; 84484; 85025; 85379; 86140; 87070; 87077; 87086; 87186; 87205; 87449; 87635; 93005; 93306; 94640; 94664; 96365; 96366; C1751; J1100; J1250; J1644; J1650; J1940; J2260; J2920; J3370; J3475; J3490; J7050; J7620; S0028; U0003; U0005

== ENCOUNTER 2020-10-10 08:26 | Emergency (ER) | payer MEDICARE, MEDICAID ==
[2020-10-10 09:11] LABS: #Eosinphils 0.1 thou/uL (0.0-0.7); #Lymphocytes 1.1 thou/uL (1.20-3.40); #Monocytes 0.8 thou/uL (0.11-0.59); #Neutrophils 5.2 thou/uL (1.40-6.50); %Basophils 0.1 % (0.0-1.0); %Eosinophils 1.6 % (0.0-10.0); %Lymphocytes 15.3 % (21.0-51.0); %Monocytes 10.4 % (0.0-10.0); %Neutrophils 72.6 % (42.0-75.0); Hemoglobin 11.4 g/dL (14.0-18.0); Mean Corpuscular HGB CONC 32.1 g/dL (32.0-36.0); Mean Corpuscular Volume 90.3 fL (78.0-98.0); Mean Platelet Volume 7.5 fL (7.4-10.4); Platelet Count 255 thou/uL (130-400); RBC Distribution Width 16.8 % (11.5-14.5); Red Blood Cell (RBC) Count 3.93 mill/uL (4.70-6.10); White Blood Cell (WBC) Count 7.2 thou/uL (4.8-10.8)
[2020-10-10 09:28] LABS: ALT (SGPT) 38 U/L (8-55); AST (SGOT) 36 U/L (5-34); Albumin 3.6 g/dL (3.4-4.8); Alkaline Phosphatase 95 U/L (40-110); Anion Gap 13 mmol/L (10-20); BUN (Urea Nitrogen) 18 mg/dL (8.4-25.7); Bilirubin, Total 0.5 mg/dL (0.2-1.2); Calc. Creatinine Clearance 0 mL/min (70-130); Calcium 8.8 mg/dL (7.8-10.44); Carbon Dioxide 27 mmol/L (23-31); Chloride 102 mmol/L (98-107); Globulin 3.5 g/dL (2.4-3.5); Glucose 88 mg/dL (80-115); Potassium 4.4 mmol/L (3.5-5.1); Protein, Total 7.1 g/dL (5.8-8.1); Sodium 138 mmol/L (136-145)
[2020-10-10 09:51] LABS: CKMB 1.8 ng/mL (0-6.6)
[2020-10-10 10:16] LABS: INR-International Normal Ratio 2.6; Prothrombin Time 28.2 sec (12.0-14.7)
== END 2020-10-10 12:39 | disposition home or self-care (01) ==
LOC: ERS 08:26
DX: R06.02 Shortness of breath (principal); I11.0 Hypertensive heart disease with heart failure; I50.9 Heart failure, unspecified; I25.2 Old myocardial infarction; J44.9 Chronic obstructive pulmonary disease, unspecified; F17.220 Nicotine dependence, chewing tobacco, uncomplicated; Z79.899 Other long term (current) drug therapy; Z86.73 Personal history of transient ischemic attack (TIA), and cerebral infarction without residual deficits; Z79.82 Long term (current) use of aspirin; Z79.01 Long term (current) use of anticoagulants
CPT/HCPCS: 36415; 80053; 82553; 83615; 84484; 85025; 85610; 93005

== ENCOUNTER 2020-10-11 12:42 | Emergency (ER) | payer MEDICARE, MEDICAID ==
[2020-10-11 13:46] LABS: #Eosinphils 0.1 thou/uL (0.0-0.7); #Lymphocytes 1.4 thou/uL (1.20-3.40); #Monocytes 0.8 thou/uL (0.11-0.59); #Neutrophils 5.6 thou/uL (1.40-6.50); %Basophils 0.2 % (0.0-1.0); %Eosinophils 1.4 % (0.0-10.0); %Monocytes 10.2 % (0.0-10.0); %Neutrophils 70.2 % (42.0-75.0); Hemoglobin 11.3 g/dL (14.0-18.0); Mean Corpuscular HGB CONC 31.9 g/dL (32.0-36.0); Mean Platelet Volume 8.4 fL (7.4-10.4); Platelet Count 247 thou/uL (130-400); RBC Distribution Width 16.8 % (11.5-14.5); White Blood Cell (WBC) Count 7.9 thou/uL (4.8-10.8)
[2020-10-11 14:04] LABS: ALT (SGPT) 37 U/L (8-55); AST (SGOT) 34 U/L (5-34); Albumin 3.8 g/dL (3.4-4.8); Alkaline Phosphatase 98 U/L (40-110); Anion Gap 13 mmol/L (10-20); BUN (Urea Nitrogen) 15 mg/dL (8.4-25.7); Bilirubin, Total 0.6 mg/dL (0.2-1.2); Calc. Creatinine Clearance 0 mL/min (70-130); Calcium 9.1 mg/dL (7.8-10.44); Carbon Dioxide 26 mmol/L (23-31); Chloride 102 mmol/L (98-107); Globulin 3.6 g/dL (2.4-3.5); Glucose 98 mg/dL (80-115); Protein, Total 7.4 g/dL (5.8-8.1); Sodium 137 mmol/L (136-145)
[2020-10-11] MEDS ORDERED: Aspirin Chewable 81 MG TAB ONE (17:35)
== END 2020-10-11 17:43 | disposition short-term general hospital (02) ==
LOC: ERS 12:42
DX: R07.2 Precordial pain (principal); I11.0 Hypertensive heart disease with heart failure; I50.9 Heart failure, unspecified; I25.2 Old myocardial infarction; J44.9 Chronic obstructive pulmonary disease, unspecified; Z95.811 Presence of heart assist device; Z79.82 Long term (current) use of aspirin; Z86.73 Personal history of transient ischemic attack (TIA), and cerebral infarction without residual deficits; Z79.899 Other long term (current) drug therapy
CPT/HCPCS: 71045; 80053; 82553; 84484; 85025; 93005

== ENCOUNTER 2021-07-18 13:39 | Emergency (ER) | payer MEDICAID, MEDICARE, OTHER ==
[2021-07-20 07:46] LABS: SARS-CoV-2 PCR by NAA DETECTED (NotDetected)
== END 2021-07-18 16:58 | disposition home or self-care (01) ==
LOC: ERS 13:39
DX: U07.1 COVID-19 (principal); I11.0 Hypertensive heart disease with heart failure; I50.9 Heart failure, unspecified; I25.2 Old myocardial infarction; J44.9 Chronic obstructive pulmonary disease, unspecified; Z86.73 Personal history of transient ischemic attack (TIA), and cerebral infarction without residual deficits; F17.220 Nicotine dependence, chewing tobacco, uncomplicated
CPT/HCPCS: 99283; U0003; U0005

== ENCOUNTER 2022-04-03 11:22 | Emergency (ER) | payer OTHER ==
[2022-04-03 12:18] LABS: #Eosinphils 0.1 thou/uL (0.0-0.7); #Monocytes 0.5 thou/uL (0.11-0.59); %Basophils 0.3 % (0.0-1.0); %Lymphocytes 22.4 % (21.0-51.0); %Monocytes 10.7 % (0.0-10.0); %Neutrophils 64.6 % (42.0-75.0); Hemoglobin 12.6 g/dL (14.0-18.0); Mean Corpuscular HGB CONC 32.5 g/dL (32.0-36.0); Mean Corpuscular Hemoglobin 32.2 pg (27.0-31.0); Mean Platelet Volume 9.2 fL (7.4-10.4); Platelet Count 143 thou/uL (130-400); RBC Distribution Width 11.8 % (11.5-14.5); Red Blood Cell (RBC) Count 3.91 mill/uL (4.70-6.10); White Blood Cell (WBC) Count 4.6 thou/uL (4.8-10.8)
[2022-04-03 12:30] LABS: PTT 73.5 sec (22.9-36.1); Prothrombin Time 48.6 sec (12.0-14.7)
[2022-04-03 12:32] LABS: INR-International Normal Ratio 5.1
[2022-04-03 12:50] LABS: Chloride 105 mmol/L (98-107); Potassium 4.4 mmol/L (3.5-5.1); Sodium 139 mmol/L (136-145)
[2022-04-03] MEDS ORDERED: Potassium Chloride 20 MEQ/100 ML PREMIX BAG ONE (13:25)
[2022-04-03] MEDS ORDERED: Potassium Chloride 20 MEQ TAB ONE (13:29)
[2022-04-03 13:35] LABS: Albumin 3.6 g/dL (3.4-4.8)
[2022-04-03 13:38] LABS: Globulin 2.5 g/dL (2.4-3.5); Glucose 97 mg/dL (83-110); Protein, Total 6.1 g/dL (5.8-8.1)
[2022-04-03 13:39] LABS: Anion Gap 14 mmol/L (10-20); Carbon Dioxide 25 mmol/L (23-31)
[2022-04-03 13:40] LABS: Bilirubin, Total 0.9 mg/dL (0.2-1.2)
[2022-04-03 13:41] LABS: Alkaline Phosphatase 63 U/L (40-110); Calc. Creatinine Clearance 0 mL/min (70-130); Estimated GFR 60
[2022-04-03 13:42] LABS: BUN (Urea Nitrogen) 15 mg/dL (8.4-25.7)
[2022-04-03 13:43] LABS: AST (SGOT) 27 U/L (5-34)
[2022-04-03 13:44] LABS: ALT (SGPT) 24 U/L (8-55)
[2022-04-03 15:01] LABS: SARS-CoV-2 NAA Rapid Test Not Detected (NotDetected)
== END 2022-04-03 14:46 | disposition left against medical advice (07) ==
LOC: ERS 11:22
DX: R79.1 Abnormal coagulation profile (principal); I11.0 Hypertensive heart disease with heart failure; I50.9 Heart failure, unspecified; I25.2 Old myocardial infarction; J44.9 Chronic obstructive pulmonary disease, unspecified; F17.220 Nicotine dependence, chewing tobacco, uncomplicated; Z20.822 Contact with and (suspected) exposure to COVID-19; Z95.811 Presence of heart assist device; Z86.73 Personal history of transient ischemic attack (TIA), and cerebral infarction without residual deficits
CPT/HCPCS: 80053; 85025; 85610; 85730; 86850; 86900; 86901; 99284; U0002; 36415; J3480

== ENCOUNTER 2023-02-19 21:52 | Emergency (ER) | payer OTHER ==
[2023-02-19 22:40] LABS: #Eosinphils 0.1 thou/uL (0.0-0.7); #Monocytes 0.6 thou/uL (0.11-0.59); #Neutrophils 3.2 thou/uL (1.40-6.50); %Basophils 0.6 % (0.0-1.0); %Eosinophils 1.9 % (0.0-10.0); %Lymphocytes 23.1 % (21.0-51.0); %Monocytes 11.7 % (0.0-10.0); %Neutrophils 62.3 % (42.0-75.0); Hemoglobin 11.1 g/dL (14.0-18.0); Mean Corpuscular HGB CONC 31.2 g/dL (32.0-36.0); Mean Corpuscular Hemoglobin 30.4 pg (27.0-31.0); Mean Corpuscular Volume 97.5 fl (78.0-98.0); Mean Platelet Volume 12.2 fL (7.4-10.4); Platelet Count 127 10x3/uL (130-400); RBC Distribution Width 13.5 % (11.5-14.5); Red Blood Cell (RBC) Count 3.65 mill/uL (4.70-6.10); White Blood Cell (WBC) Count 5.2 10x3/uL (4.8-10.8)
[2023-02-19 22:48] LABS: Manual Diff?? YES
[2023-02-19 22:52] LABS: INR-International Normal Ratio 2.6; Prothrombin Time 29.2 sec (12.0-14.7)
[2023-02-19 22:53] LABS: PTT 47.8 sec (22.9-36.1)
[2023-02-19 23:03] LABS: ALT (SGPT) 20 U/L (8-55); AST (SGOT) 29 U/L (5-34); Albumin 3.9 g/dL (3.4-4.8); Alkaline Phosphatase 62 U/L (40-110); Anion Gap 15 mmol/L (10-20); BUN (Urea Nitrogen) 18 mg/dL (8.4-25.7); Bilirubin, Total 0.5 mg/dL (0.2-1.2); CK (CPK) 114 U/L (30-200); Calc. Creatinine Clearance 0 mL/min (70-130); Calcium 8.9 mg/dL (7.8-10.44); Carbon Dioxide 22 mmol/L (23-31); Chloride 106 mmol/L (98-107); Estimated GFR 52; Globulin 2.9 g/dL (2.4-3.5); Glucose 92 mg/dL (83-110); Potassium 3.8 mmol/L (3.5-5.1); Protein, Total 6.8 g/dL (5.8-8.1); Sodium 139 mmol/L (136-145)
[2023-02-19 23:09] LABS: Eosinophils 1 % (0-10); Lymphocytes 15 % (21-51); Metamyelocyte 1 % (0-0); Monocytes 7 % (0-10); Neutrophil 74 % (42-75); Platelet Adequacy Comment Platelets Decreased; Polychromasia SLIGHT = 2-3 cells HPF (0-2); Reactive Lymphocytes 1 % (0-10); Total Cell Count 100
== END 2023-02-19 23:21 | disposition home or self-care (01) ==
LOC: ERS 21:52
DX: R10.32 Left lower quadrant pain (principal); R07.89 Other chest pain; I11.0 Hypertensive heart disease with heart failure; I50.9 Heart failure, unspecified; F17.210 Nicotine dependence, cigarettes, uncomplicated
CPT/HCPCS: 36415; 71045; 80053; 82550; 82553; 83605; 84484; 85025; 85610; 85730

== ENCOUNTER 2023-03-02 13:47 | Emergency (ER) | payer OTHER ==
[2023-03-02 14:57] LABS: #Eosinphils 0.1 thou/uL (0.0-0.7); #Monocytes 0.6 thou/uL (0.11-0.59); #Neutrophils 4.2 thou/uL (1.40-6.50); %Basophils 0.4 % (0.0-1.0); %Eosinophils 1.2 % (0.0-10.0); %Lymphocytes 14.2 % (21.0-51.0); %Monocytes 10.5 % (0.0-10.0); %Neutrophils 73.2 % (42.0-75.0); Hematocrit 39.8 % (42.0-52.0); Hemoglobin 12.7 g/dL (14.0-18.0); Mean Corpuscular HGB CONC 31.9 g/dL (32.0-36.0); Mean Corpuscular Hemoglobin 30.5 pg (27.0-31.0); Mean Corpuscular Volume 95.4 fl (78.0-98.0); Mean Platelet Volume 11.8 fL (7.4-10.4); Red Blood Cell (RBC) Count 4.17 mill/uL (4.70-6.10); White Blood Cell (WBC) Count 5.7 10x3/uL (4.8-10.8)
[2023-03-02 15:11] LABS: Platelet Count 136 10x3/uL (130-400)
[2023-03-02 15:21] LABS: ALT (SGPT) 26 U/L (8-55); AST (SGOT) 34 U/L (5-34); Albumin 4.2 g/dL (3.4-4.8); Alkaline Phosphatase 66 U/L (40-110); Anion Gap 14 mmol/L (10-20); BUN (Urea Nitrogen) 28 mg/dL (8.4-25.7); Calc. Creatinine Clearance 0 mL/min (70-130); Calcium 9.4 mg/dL (7.8-10.44); Carbon Dioxide 29 mmol/L (23-31); Chloride 100 mmol/L (98-107); Estimated GFR 37; Globulin 2.9 g/dL (2.4-3.5); Glucose 104 mg/dL (83-110); Potassium 4.6 mmol/L (3.5-5.1); Protein, Total 7.1 g/dL (5.8-8.1); Sodium 138 mmol/L (136-145)
[2023-03-02 15:24] LABS: Troponin I 0.059 ng/mL (< 0.028)
[2023-03-02 17:06] LABS: Bacteria/HPF None Seen HPF (None Seen); Bilirubin Negative (Negative); Blood, Urine Negative (Negative); CAUTI Indications for Culture Dysuria,urgency,freq; Clarity Clear (Clear); Glucose, Urine (Dipstick) Normal (Negative); Ketone, Urine Negative (Negative); Leukocyte Negative Leu/uL (Negative); Nitrite Negative (Negative); Protein, Urine (Dipstick) Negative (Neg-Trace); RBC/HPF None Seen HPF (0-3); Specific Gravity, Urine 1.008 (1.002-1.036); Squamous Epithelial None Seen HPF (0-3); Urobilinogen Normal mg/dL (Less than 2); WBC/HPF 0-3 HPF (0-3); pH, Urine 6.5 (5.0-9.0)
[2023-03-02 17:20] LABS: Urine Culture Reflex No No
[2023-03-02 17:37] LABS: SARS-CoV-2 NAA Rapid Test Not Detected (NotDetected)
[2023-03-02 18:52] LABS: Troponin I 0.055 ng/mL (< 0.028)
[2023-03-02] MEDS ORDERED: HYDROcodone/Acetaminophen 5/325 mg Tablet ONE (20:34)
== END 2023-03-03 01:50 | disposition left against medical advice (07) ==
LOC: ERS 13:47
DX: R55 Syncope and collapse (principal); I11.0 Hypertensive heart disease with heart failure; I50.9 Heart failure, unspecified; J44.9 Chronic obstructive pulmonary disease, unspecified; F17.220 Nicotine dependence, chewing tobacco, uncomplicated; Z20.822 Contact with and (suspected) exposure to COVID-19; Z79.899 Other long term (current) drug therapy
CPT/HCPCS: 0240U; 80053; 81001; 84484 ×2; 85025; 93005; 36415

== ENCOUNTER 2023-07-03 11:48 | Emergency (ER) | payer OTHER, MEDICAID ==
[2023-07-03] MEDS ORDERED: Ipratropium/Albuterol 3 ML NEB ONE (12:28)
[2023-07-03] MEDS ORDERED: methylPREDNISolone Sod Succ/PF 125 MG/2 ML VIAL ONE (12:28)
[2023-07-03 12:50] LABS: Troponin I 0.032 ng/mL (< 0.028)
[2023-07-03 12:54] LABS: ALT (SGPT) 24 U/L (8-55); AST (SGOT) 50 U/L (5-34); Albumin 4.2 g/dL (3.4-4.8); Alkaline Phosphatase 69 U/L (40-110); Anion Gap 18 mmol/L (10-20); BUN (Urea Nitrogen) 18 mg/dL (8.4-25.7); Bilirubin, Total 1.4 mg/dL (0.2-1.2); Calc. Creatinine Clearance 0 mL/min (70-130); Calcium 9.3 mg/dL (7.8-10.44); Carbon Dioxide 20 mmol/L (23-31); Chloride 105 mmol/L (98-107); Estimated GFR 47; Globulin 4.2 g/dL (2.4-3.5); Glucose 114 mg/dL (83-110); Potassium 5.6 mmol/L (3.5-5.1); Protein, Total 8.4 g/dL (5.8-8.1); Sodium 137 mmol/L (136-145)
[2023-07-03 13:35] LABS: Hematocrit 37.7 % (42.0-52.0); Hemoglobin 11.6 g/dL (14.0-18.0); Manual Diff?? YES; Mean Corpuscular HGB CONC 30.8 g/dL (32.0-36.0); Mean Corpuscular Hemoglobin 31.4 pg (27.0-31.0); Mean Corpuscular Volume 101.9 fl (78.0-98.0); Mean Platelet Volume 11.8 fL (7.4-10.4); Platelet Count 119 10x3/uL (130-400); RBC Distribution Width 13.2 % (11.5-14.5); White Blood Cell (WBC) Count 5.9 10x3/uL (4.8-10.8)
[2023-07-03 13:41] LABS: Delete Auto Diff?? YES
[2023-07-03 14:26] LABS: CellaVision Operator ID LAB.KB; Eosinophils 1 % (0-10); Hypochromia SLIGHT = 6-15 cells HPF (0-5); Large Platelets 7.1 % (0-5); Lymphocytes 5 % (21-51); Macrocytosis SLIGHT = 6-15 cells HPF (0-5); Monocytes 4 % (0-10); Neutrophil 89 % (42-75); Ovalocytes SLIGHT = 2-5 cells HPF (0-1); Platelet Adequacy Comment Platelets Decreased; Smudge Cells 13.1 %; Total Cell Count 99
[2023-07-03] MEDS ORDERED: Furosemide 40 MG/4 ML VIAL ONE (16:15)
[2023-07-03 21:40] LABS: SARS-CoV-2 NAA Rapid Test Not Detected (NotDetected)
== END 2023-07-03 21:09 | disposition left against medical advice (07) ==
LOC: ERS 11:48
DX: E87.70 Fluid overload, unspecified (principal); E87.5 Hyperkalemia; J44.9 Chronic obstructive pulmonary disease, unspecified; I11.0 Hypertensive heart disease with heart failure; I50.9 Heart failure, unspecified; F17.220 Nicotine dependence, chewing tobacco, uncomplicated; Z20.822 Contact with and (suspected) exposure to COVID-19
CPT/HCPCS: 0241U; 71045; 80053; 83880; 84484; 85025; 36415; 99285; J1940; J2930; J7611; J7620

== ENCOUNTER 2023-07-05 01:47 | Emergency (ER) | payer OTHER ==
[2023-07-05 03:06] LABS: #Monocytes 0.9 thou/uL (0.11-0.59); #Neutrophils 7.4 thou/uL (1.40-6.50); %Basophils 0.1 % (0.0-1.0); %Eosinophils 0.1 % (0.0-10.0); %Lymphocytes 13.1 % (21.0-51.0); %Neutrophils 77.4 % (42.0-75.0); Hematocrit 35.9 % (42.0-52.0); Hemoglobin 11.4 g/dL (14.0-18.0); Mean Corpuscular HGB CONC 31.8 g/dL (32.0-36.0); Mean Corpuscular Hemoglobin 31.8 pg (27.0-31.0); Mean Platelet Volume 12.6 fL (7.4-10.4); Platelet Count 123 10x3/uL (130-400); RBC Distribution Width 13.2 % (11.5-14.5); Red Blood Cell (RBC) Count 3.59 mill/uL (4.70-6.10); White Blood Cell (WBC) Count 9.5 10x3/uL (4.8-10.8)
[2023-07-05 03:26] LABS: ALT (SGPT) 21 U/L (8-55); AST (SGOT) 37 U/L (5-34); Albumin 4.1 g/dL (3.4-4.8); Alkaline Phosphatase 61 U/L (40-110); Anion Gap 14 mmol/L (10-20); BUN (Urea Nitrogen) 28 mg/dL (8.4-25.7); Calc. Creatinine Clearance 0 mL/min (70-130); Calcium 9.4 mg/dL (7.8-10.44); Carbon Dioxide 29 mmol/L (23-31); Chloride 102 mmol/L (98-107); Estimated GFR 40; Globulin 3.1 g/dL (2.4-3.5); Glucose 123 mg/dL (83-110); Potassium 4.6 mmol/L (3.5-5.1); Protein, Total 7.2 g/dL (5.8-8.1); Sodium 140 mmol/L (136-145)
[2023-07-05 03:30] LABS: Troponin I 0.047 ng/mL (< 0.028)
[2023-07-05] MEDS ORDERED: Furosemide 40 MG/4 ML VIAL ONE (04:35)
[2023-07-05 06:47] LABS: Troponin I 0.039 ng/mL (< 0.028)
== END 2023-07-05 07:15 | disposition home or self-care (01) ==
LOC: ERS 01:47
DX: I11.0 Hypertensive heart disease with heart failure (principal); I50.9 Heart failure, unspecified; J44.9 Chronic obstructive pulmonary disease, unspecified; F17.220 Nicotine dependence, chewing tobacco, uncomplicated
CPT/HCPCS: 36415; 71045; 80053; 83880; 84484; 85025; 93005; 96374; J1940

== ENCOUNTER 2023-08-12 12:56 | Emergency (ER) | payer OTHER ==
[2023-08-12] MEDS ORDERED: Ipratropium/Albuterol 3 ML NEB ONE (13:40)
[2023-08-12 14:35] LABS: Hematocrit 35.7 % (42.0-52.0); Hemoglobin 11.5 g/dL (14.0-18.0); Manual Diff?? YES; Mean Corpuscular HGB CONC 32.2 g/dL (32.0-36.0); Mean Corpuscular Hemoglobin 31.4 pg (27.0-31.0); Mean Corpuscular Volume 97.5 fl (78.0-98.0); Mean Platelet Volume 12.3 fL (7.4-10.4); Platelet Count 121 10x3/uL (130-400); RBC Distribution Width 12.7 % (11.5-14.5); Red Blood Cell (RBC) Count 3.66 mill/uL (4.70-6.10); White Blood Cell (WBC) Count 5.6 10x3/uL (4.8-10.8)
[2023-08-12 14:36] LABS: Delete Auto Diff?? YES
[2023-08-12 14:49] LABS: ALT (SGPT) 24 U/L (8-55); AST (SGOT) 34 U/L (5-34); Albumin 3.6 g/dL (3.4-4.8); Alkaline Phosphatase 58 U/L (40-110); Anion Gap 12 mmol/L (10-20); BUN (Urea Nitrogen) 14 mg/dL (8.4-25.7); Bilirubin, Total 0.9 mg/dL (0.2-1.2); Calc. Creatinine Clearance 0 mL/min (70-130); Calcium 8.6 mg/dL (7.8-10.44); Carbon Dioxide 25 mmol/L (23-31); Chloride 105 mmol/L (98-107); Estimated GFR 65; Globulin 2.8 g/dL (2.4-3.5); Glucose 148 mg/dL (83-110); Magnesium 1.7 mg/dL (1.6-2.6); Potassium 3.8 mmol/L (3.5-5.1); Protein, Total 6.4 g/dL (5.8-8.1); Sodium 138 mmol/L (136-145)
[2023-08-12 14:53] LABS: Troponin I 0.027 ng/mL (< 0.028)
[2023-08-12 14:59] LABS: CellaVision Operator ID LAB.MJL; Large Platelets 24.5 % (0-5); Lymphocytes 18 % (21-51); Monocytes 8 % (0-10); Neutrophil 72 % (42-75); Nucleated RBC (Manual Ct) 1 % (0); Ovalocytes SLIGHT = 2-5 cells HPF (0-1); Platelet Adequacy Comment Platelets Decreased; Polychromasia SLIGHT = 2-3 cells HPF (0-2); Reactive Lymphocytes 1 % (0-10); Total Cell Count 98
[2023-08-12 15:08] LABS: SARS-CoV-2 NAA Rapid Test Not Detected (NotDetected)
== END 2023-08-12 14:34 | disposition home or self-care (01) ==
LOC: ERS 12:56
DX: J44.9 Chronic obstructive pulmonary disease, unspecified (principal); I11.0 Hypertensive heart disease with heart failure; I50.9 Heart failure, unspecified; I25.2 Old myocardial infarction; F17.210 Nicotine dependence, cigarettes, uncomplicated; F17.220 Nicotine dependence, chewing tobacco, uncomplicated
CPT/HCPCS: 0240U; 71046; 80053; 83735; 84484; 85025; 93005; 94640; 36415; J7620

== ENCOUNTER 2023-09-06 15:58 | Emergency (ER) | payer OTHER ==
[2023-09-06 16:48] LABS: #Eosinphils 0.1 thou/uL (0.0-0.7); #Monocytes 0.5 thou/uL (0.11-0.59); #Neutrophils 2.4 thou/uL (1.40-6.50); %Basophils 0.5 % (0.0-1.0); %Eosinophils 1.7 % (0.0-10.0); %Lymphocytes 27.8 % (21.0-51.0); %Monocytes 11.7 % (0.0-10.0); %Neutrophils 58.1 % (42.0-75.0); Hematocrit 40.4 % (42.0-52.0); Hemoglobin 12.7 g/dL (14.0-18.0); Mean Corpuscular HGB CONC 31.4 g/dL (32.0-36.0); Mean Corpuscular Hemoglobin 32.1 pg (27.0-31.0); Mean Platelet Volume 12.1 fL (7.4-10.4); RBC Distribution Width 12.5 % (11.5-14.5); Red Blood Cell (RBC) Count 3.96 mill/uL (4.70-6.10); White Blood Cell (WBC) Count 4.1 10x3/uL (4.8-10.8)
[2023-09-06 16:49] LABS: Bacteria/HPF None Seen HPF (None Seen); Bilirubin Negative (Negative); Blood, Urine Negative (Negative); CAUTI Indications for Culture Pelvic or flank pain; Clarity Clear (Clear); Glucose, Urine (Dipstick) Normal (Negative); Ketone, Urine Negative (Negative); Leukocyte Negative Leu/uL (Negative); Nitrite Negative (Negative); Protein, Urine (Dipstick) Negative (Neg-Trace); RBC/HPF None Seen HPF (0-3); Specific Gravity, Urine 1.007 (1.002-1.036); Squamous Epithelial None Seen HPF (0-3); Urobilinogen Normal mg/dL (Less than 2); WBC/HPF 0-3 HPF (0-3); pH, Urine 6.5 (5.0-9.0)
[2023-09-06] MEDS ORDERED: Magnesium 2 GM/50 ML BAG (IN WATER) ONE (16:49)
[2023-09-06] MEDS ORDERED: predniSONE 20 MG TAB ONE (16:49)
[2023-09-06 16:50] LABS: Platelet Count 104 10x3/uL (130-400)
[2023-09-06 16:51] LABS: Urine Culture Reflex No No
[2023-09-06 17:01] LABS: PTT 43.9 sec (22.9-36.1); Prothrombin Time 22.6 sec (12.0-14.7)
[2023-09-06 17:08] LABS: ALT (SGPT) 34 U/L (8-55); AST (SGOT) 46 U/L (5-34); Albumin 4.1 g/dL (3.4-4.8); Alkaline Phosphatase 74 U/L (40-110); Anion Gap 12 mmol/L (10-20); BUN (Urea Nitrogen) 19 mg/dL (8.4-25.7); Bilirubin, Total 0.8 mg/dL (0.2-1.2); Calc. Creatinine Clearance 0 mL/min (70-130); Calcium 9.4 mg/dL (7.8-10.44); Carbon Dioxide 30 mmol/L (23-31); Chloride 101 mmol/L (98-107); Estimated GFR 46; Globulin 3.3 g/dL (2.4-3.5); Glucose 92 mg/dL (83-110); Potassium 4.2 mmol/L (3.5-5.1); Protein, Total 7.4 g/dL (5.8-8.1); Sodium 139 mmol/L (136-145)
[2023-09-06 17:40] LABS: Troponin I 0.025 ng/mL (< 0.028)
[2023-09-06] MEDS ORDERED: HYDROcodone/Acetaminophen 5/325 mg Tablet ONE (19:01)
== END 2023-09-06 19:52 | disposition home or self-care (01) ==
LOC: ERS 15:58
DX: J44.9 Chronic obstructive pulmonary disease, unspecified (principal); I13.0 Hypertensive heart and chronic kidney disease with heart failure and stage 1 through stage 4 chronic kidney disease, or unspecified chronic kidney disease; N18.9 Chronic kidney disease, unspecified; I50.9 Heart failure, unspecified; I95.9 Hypotension, unspecified; K62.5 Hemorrhage of anus and rectum; I25.2 Old myocardial infarction; I63.9 Cerebral infarction, unspecified; K92.9 Disease of digestive system, unspecified; H54.7 Unspecified visual loss; F17.220 Nicotine dependence, chewing tobacco, uncomplicated; Z55.6 Problems related to health literacy; Z95.811 Presence of heart assist device; Z95.0 Presence of cardiac pacemaker
CPT/HCPCS: 71045; 80053; 81001; 83880; 84484; 85025; 85610; 85730; 96365; J3475; J7512

== ENCOUNTER 2023-10-01 17:46 | Emergency (ER) | payer MEDICARE, MEDICAID ==
[2023-10-01 18:45] LABS: Hematocrit 33.7 % (42.0-52.0); Hemoglobin 10.9 g/dL (14.0-18.0); Manual Diff?? YES; Mean Corpuscular HGB CONC 32.3 g/dL (32.0-36.0); Mean Corpuscular Hemoglobin 31.9 pg (27.0-31.0); Mean Corpuscular Volume 98.5 fl (78.0-98.0); Mean Platelet Volume 11.4 fL (7.4-10.4); RBC Distribution Width 12.6 % (11.5-14.5); Red Blood Cell (RBC) Count 3.42 mill/uL (4.70-6.10); White Blood Cell (WBC) Count 4.2 10x3/uL (4.8-10.8)
[2023-10-01] MEDS ORDERED: Furosemide 40 MG TAB ONE (18:45)
[2023-10-01] MEDS ORDERED: predniSONE 20 MG TAB ONE (18:45)
[2023-10-01 18:48] LABS: Delete Auto Diff?? YES; Platelet Count 125 10x3/uL (130-400)
[2023-10-01 19:02] LABS: ALT (SGPT) 19 U/L (8-55); AST (SGOT) 29 U/L (5-34); Albumin 3.6 g/dL (3.4-4.8); Alkaline Phosphatase 60 U/L (40-110); Anion Gap 10 mmol/L (10-20); BUN (Urea Nitrogen) 16 mg/dL (8.4-25.7); Bilirubin, Total 1.2 mg/dL (0.2-1.2); Calc. Creatinine Clearance 0 mL/min (70-130); Carbon Dioxide 29 mmol/L (23-31); Chloride 105 mmol/L (98-107); Estimated GFR 56; Globulin 2.9 g/dL (2.4-3.5); Glucose 112 mg/dL (83-110); Potassium 3.7 mmol/L (3.5-5.1); Protein, Total 6.5 g/dL (5.8-8.1); Sodium 140 mmol/L (136-145)
[2023-10-01 19:06] LABS: Troponin I 0.039 ng/mL (< 0.028)
[2023-10-01 19:18] LABS: CellaVision Operator ID LAB.MJL; Eosinophils 2 % (0-10); Lymphocytes 26 % (21-51); Monocytes 9 % (0-10); Neutrophil 62 % (42-75); Platelet Adequacy Comment Platelets Decreased; Polychromasia SLIGHT = 2-3 cells HPF (0-2); Reactive Lymphocytes 1 % (0-10); Total Cell Count 100
== END 2023-10-01 20:45 | disposition home or self-care (01) ==
LOC: ERS 17:46
DX: J44.9 Chronic obstructive pulmonary disease, unspecified (principal); I11.0 Hypertensive heart disease with heart failure; I50.9 Heart failure, unspecified; F12.10 Cannabis abuse, uncomplicated; F14.10 Cocaine abuse, uncomplicated; F17.220 Nicotine dependence, chewing tobacco, uncomplicated; Z79.51 Long term (current) use of inhaled steroids
CPT/HCPCS: 36415; 71045; 80053; 83880; 84484; 85025; 93005; 94760; J7512

== ENCOUNTER 2024-05-03 16:42 | Emergency (ER) | payer MEDICARE, OTHER ==
[2024-05-03] MEDS ORDERED: methylPREDNISolone Sod Succ/PF 125 MG/2 ML VIAL ONE (17:09)
[2024-05-03] MEDS ORDERED: Albuterol 2.5 MG (3 mL) NEB ONE (17:19)
[2024-05-03] MEDS ORDERED: Ipratropium Bromide 2.5 ml Neb ONE (17:19)
[2024-05-03 17:43] LABS: ALT (SGPT) 18 U/L (8-55); AST (SGOT) 33 U/L (5-34); Albumin 3.2 g/dL (3.4-4.8); Alkaline Phosphatase 62 U/L (40-110); Anion Gap 13 mmol/L (10-20); BUN (Urea Nitrogen) 14 mg/dL (8.4-25.7); Calc. Creatinine Clearance 0 mL/min (70-130); Calcium 8.6 mg/dL (7.8-10.44); Carbon Dioxide 23 mmol/L (23-31); Chloride 107 mmol/L (98-107); Estimated GFR 67; Globulin 3.2 g/dL (2.4-3.5); Glucose 108 mg/dL (83-110); Potassium 4.4 mmol/L (3.5-5.1); Protein, Total 6.4 g/dL (5.8-8.1); Sodium 139 mmol/L (136-145)
[2024-05-03 17:49] LABS: Troponin I 0.032 ng/mL (< 0.028)
[2024-05-03 18:09] LABS: Hematocrit 35.3 % (42.0-52.0); Hemoglobin 10.9 g/dL (14.0-18.0); Mean Corpuscular HGB CONC 30.9 g/dL (32.0-36.0); Mean Corpuscular Hemoglobin 30.7 pg (27.0-31.0); Mean Corpuscular Volume 99.4 fL (78.0-98.0); Mean Platelet Volume 12.1 fL (7.4-10.4); Platelet Count 124 10x3/uL (130-400); Red Blood Cell (RBC) Count 3.55 mill/uL (4.70-6.10)
[2024-05-03 18:16] LABS: Anisocytosis SLIGHT = 6-15 cells HPF (0-5); Eosinophils 2 % (0-10); Large Platelets 26.5 % (0-5); Lymphocytes 21 % (21-51); Monocytes 9 % (0-10); Neutrophil 69 % (42-75); Platelet Adequacy Comment Platelets Decreased; Polychromasia SLIGHT = 2-3 cells HPF (0-2)
[2024-05-03] MEDS ORDERED: Furosemide 20 MG (2 mL) VIAL ONE (18:30)
[2024-05-03] MEDS ORDERED: Azithromycin 500 MG VIAL ONE (18:31)
[2024-05-03 19:34] LABS: Actual Bicarbonate (HCO3v) 28.6 mEq/L (22-28); Analyzer IN Cardio ER; Base Excess 3.3 mEq/L (-2.0 to +3.0); Chloride (VBG) 103 mmol/L (98-106); Hematocrit-VBG 36 % (42.0-52.0); Hemoglobin (Hb) 12.2 g/dL (12.6-17.4); Potassium (VBG) 3.59 mmol/L (3.70-5.30); Sodium 140 mmol/L (133-146); pH (venous) 7.408 (7.32-7.43)
[2024-05-03] MEDS ORDERED: fentaNYL 50 mcg/mL 1 mL Vial ONE (21:17)
== END 2024-05-03 21:51 | disposition short-term general hospital (02) ==
LOC: ERS 16:42
DX: J44.1 Chronic obstructive pulmonary disease with (acute) exacerbation (principal); I11.0 Hypertensive heart disease with heart failure; I50.9 Heart failure, unspecified; R09.02 Hypoxemia
CPT/HCPCS: 36415; 71045; 80053; 82805; 83605; 83880; 84484; 85025; 87040; 87428; 94644; 96365; 96366; 96375; J0456; J1940; J2919; J3010; J7611; J7644

== ENCOUNTER 2024-05-22 07:49 | Observation (INO) | payer OTHER, MEDICAID ==
[2024-05-22] MEDS ORDERED: methylPREDNISolone Sod Succ/PF 125 MG/2 ML VIAL ONE (08:09)
[2024-05-22] MEDS ORDERED: Ipratropium/Albuterol 3 ML NEB ONE (08:09)
[2024-05-22 08:23] LABS: Hematocrit 35.7 % (42.0-52.0); Hemoglobin 11.3 g/dL (14.0-18.0); Mean Corpuscular HGB CONC 31.7 g/dL (32.0-36.0); Mean Corpuscular Hemoglobin 30.5 pg (27.0-31.0); Mean Corpuscular Volume 96.5 fL (78.0-98.0); Mean Platelet Volume 11.5 fL (7.4-10.4); Platelet Count 147 10x3/uL (130-400); RBC Distribution Width 12.9 % (11.5-14.5)
[2024-05-22 08:35] LABS: Troponin I 0.068 ng/mL (< 0.028)
[2024-05-22 08:41] LABS: Anisocytosis MARKED = >30 cells HPF (0-5); Large Platelets 4.9 % (0-5); Lymphocytes 19 % (21-51); Macrocytosis MODERATE=16-30 cells HPF (0-5); Monocytes 11 % (0-10); Neutrophil 68 % (42-75); Ovalocytes SLIGHT = 2-5 cells HPF (0-1); Platelet Adequacy Comment Platelets Normal; Polychromasia SLIGHT = 2-3 cells HPF (0-2)
[2024-05-22 08:56] LABS: ALT (SGPT) 30 U/L (8-55); AST (SGOT) 39 U/L (5-34); Albumin 3.5 g/dL (3.4-4.8); Alkaline Phosphatase 85 U/L (40-110); Anion Gap 11 mmol/L (10-20); BUN (Urea Nitrogen) 19 mg/dL (8.4-25.7); Bilirubin, Total 0.7 mg/dL (0.2-1.2); Calc. Creatinine Clearance 0 mL/min (70-130); Calcium 8.6 mg/dL (7.8-10.44); Carbon Dioxide 30 mmol/L (23-31); Chloride 103 mmol/L (98-107); Estimated GFR 61; Globulin 3.4 g/dL (2.4-3.5); Glucose 83 mg/dL (83-110); Potassium 3.7 mmol/L (3.5-5.1); Protein, Total 6.9 g/dL (5.8-8.1); Sodium 140 mmol/L (136-145)
[2024-05-22] MEDS ORDERED: Guaifenesin DM 100-10/5 ML UDCUP PO PRN (10:30)
[2024-05-22] MEDS ORDERED: Acetaminophen 325 MG TAB PO PRN (10:30)
[2024-05-22] MEDS ORDERED: Ipratropium Bromide 2.5 ml Neb NEB PRN (10:30)
[2024-05-22] MEDS ORDERED: Senokot S 8.6-50 MG TAB PO PRN (10:30)
[2024-05-22 11:31] LABS: INR-International Normal Ratio 3.3
[2024-05-22 12:30] VITALS: TEMP 98.7; BMI 21.7
[2024-05-22] MEDS ORDERED: Ipratropium/Albuterol 3 ML NEB NEB SCH (13:00)
[2024-05-22] MEDS ORDERED: methylPREDNISolone Sod Succ 40 MG VIAL IVP SCH (14:00)
[2024-05-22] MEDS ORDERED: Lorazepam 1 MG TAB ONE (14:49)
[2024-05-22 15:13] LABS: Troponin I 0.048 ng/mL (< 0.028)
[2024-05-22] MEDS ORDERED: Famotidine 20 MG TAB PO SCH (21:00)
[2024-05-23] MEDS ORDERED: Enoxaparin 40 MG (0.4 mL) SYRINGE SC SCH (09:00)
== END 2024-05-22 15:15 | disposition short-term general hospital (02) ==
LOC: ERS 07:49 → ERHOLD 10:36
PROVIDERS: ADMIT Hospitalist; ATTEND Hospitalist
DX: J44.1 Chronic obstructive pulmonary disease with (acute) exacerbation (principal); I11.0 Hypertensive heart disease with heart failure; I50.9 Heart failure, unspecified; I25.2 Old myocardial infarction; K92.2 Gastrointestinal hemorrhage, unspecified; H54.7 Unspecified visual loss; F41.9 Anxiety disorder, unspecified; F17.210 Nicotine dependence, cigarettes, uncomplicated; F17.220 Nicotine dependence, chewing tobacco, uncomplicated; F14.10 Cocaine abuse, uncomplicated; F12.10 Cannabis abuse, uncomplicated; Z95.810 Presence of automatic (implantable) cardiac defibrillator; Z95.5 Presence of coronary angioplasty implant and graft; Z86.73 Personal history of transient ischemic attack (TIA), and cerebral infarction without residual deficits; Z88.5 Allergy status to narcotic agent; Z88.8 Allergy status to other drugs, medicaments and biological substances; Z79.51 Long term (current) use of inhaled steroids; Z79.2 Long term (current) use of antibiotics; Z79.899 Other long term (current) drug therapy
CPT/HCPCS: 71045; 80053; 83880; 84484 ×2; 85025; 85610; 87428; 93005; 96374; 99285; G0378; J2919; 36415; J7620

== ENCOUNTER 2024-06-26 11:28 | Emergency (ER) | payer OTHER ==
[2024-06-26] MEDS ORDERED: Albuterol 2.5 MG (3 mL) NEB ONE ×2 (11:59→12:00)
[2024-06-26] MEDS ORDERED: Ipratropium Bromide 2.5 ml Neb ONE (11:59)
[2024-06-26] MEDS ORDERED: Aspirin Chewable 81 MG TAB ONE (12:01)
[2024-06-26 12:07] LABS: Actual Bicarbonate (HCO3v) 30.5 mEq/L (22-28); Analyzer IN Cardio ER; Base Excess 4.8 mEq/L (-2.0 to +3.0); Calcium, Ionized (venous) 1.04 mmol/L (1.16-1.32); Chloride (VBG) 100 mmol/L (98-106); Hematocrit-VBG 36 % (42.0-52.0); Hemoglobin (Hb) 12.1 g/dL (12.6-17.4); Potassium (VBG) 3.98 mmol/L (3.70-5.30); Sodium 138 mmol/L (133-146); pH (venous) 7.406 (7.32-7.43)
[2024-06-26 12:22] LABS: #Basophils Less than 0.03 10x3/uL (0.0-0.2); %Basophils 0.4 % (0.0-1.0); %Eosinophils 1.1 % (0.0-10.0); %Monocytes 10.8 % (0.0-10.0); %Neutrophils 68.3 % (42.0-75.0); Hematocrit 34.7 % (42.0-52.0); Hemoglobin 10.8 g/dL (14.0-18.0); Mean Corpuscular HGB CONC 31.1 g/dL (32.0-36.0); Mean Corpuscular Hemoglobin 31.1 pg (27.0-31.0); Mean Platelet Volume 11.1 fL (7.4-10.4); Platelet Count 127 10x3/uL (130-400); RBC Distribution Width 13.3 % (11.5-14.5); Red Blood Cell (RBC) Count 3.47 mill/uL (4.70-6.10)
[2024-06-26 12:26] LABS: INR-International Normal Ratio 1.3; Prothrombin Time 16.2 sec (12.0-14.7)
[2024-06-26 12:27] LABS: PTT 32.3 sec (22.9-36.1)
[2024-06-26 12:29] LABS: ALT (SGPT) 33 U/L (8-55); AST (SGOT) 39 U/L (5-34); Albumin 3.2 g/dL (3.4-4.8); Alkaline Phosphatase 74 U/L (40-110); Anion Gap 13 mmol/L (10-20); BUN (Urea Nitrogen) 25 mg/dL (8.4-25.7); Bilirubin, Total 0.8 mg/dL (0.2-1.2); Calc. Creatinine Clearance 0 mL/min (70-130); Calcium 8.6 mg/dL (7.8-10.44); Carbon Dioxide 28 mmol/L (23-31); Chloride 102 mmol/L (98-107); Estimated GFR 58; Globulin 2.9 g/dL (2.4-3.5); Glucose 130 mg/dL (83-110); Magnesium 1.9 mg/dL (1.6-2.6); Protein, Total 6.1 g/dL (5.8-8.1); Sodium 139 mmol/L (136-145)
[2024-06-26 12:33] LABS: Troponin I 0.098 ng/mL (< 0.028)
[2024-06-26] MEDS ORDERED: cefTRIAXone (ROCEPHIN) 2 GM VIAL ONE (14:08)
[2024-06-26] MEDS ORDERED: Magnesium 2 GM/50 ML BAG (IN WATER) ONE (14:08)
[2024-06-26] MEDS ORDERED: Sodium Chloride 0.9% 100 ML ONE (14:09)
[2024-06-26] MEDS ORDERED: methylPREDNISolone Sod Succ/PF 125 MG/2 ML VIAL ONE (14:09)
[2024-06-26] MEDS ORDERED: Azithromycin 500 MG VIAL ONE (14:09)
== END 2024-06-26 18:08 | disposition short-term general hospital (02) ==
LOC: ERS 11:28
DX: J44.1 Chronic obstructive pulmonary disease with (acute) exacerbation (principal); F14.10 Cocaine abuse, uncomplicated; R79.89 Other specified abnormal findings of blood chemistry; I11.0 Hypertensive heart disease with heart failure; I50.9 Heart failure, unspecified; I25.2 Old myocardial infarction; F17.220 Nicotine dependence, chewing tobacco, uncomplicated; F17.210 Nicotine dependence, cigarettes, uncomplicated
CPT/HCPCS: 71045; 80053; 82805; 83735; 83880; 84484; 85025; 85610; 85730; 87428; 93005; 94760; J0456; J0696; J2919; J3475; J7644; 36415; 96365; 96366; 96367; 96375; J7611

== ENCOUNTER 2024-07-10 15:21 | Emergency (ER) | payer MEDICARE, OTHER ==
[2024-07-10] MEDS ORDERED: methylPREDNISolone Sod Succ/PF 125 MG/2 ML VIAL ONE (15:32)
[2024-07-10 16:30] LABS: Hematocrit 35.6 % (42.0-52.0); Hemoglobin 11.3 g/dL (14.0-18.0); Mean Corpuscular HGB CONC 31.7 g/dL (32.0-36.0); Mean Corpuscular Hemoglobin 30.3 pg (27.0-31.0); Mean Corpuscular Volume 95.4 fL (78.0-98.0); Mean Platelet Volume 11.7 fL (7.4-10.4); Platelet Count 156 10x3/uL (130-400); RBC Distribution Width 12.7 % (11.5-14.5); Red Blood Cell (RBC) Count 3.73 mill/uL (4.70-6.10)
[2024-07-10] MEDS ORDERED: Furosemide 40 MG (4 mL) VIAL ONE (16:31)
[2024-07-10 16:39] LABS: ALT (SGPT) 65 U/L (8-55); AST (SGOT) 45 U/L (5-34); Albumin 3.4 g/dL (3.4-4.8); Alkaline Phosphatase 61 U/L (40-110); Anion Gap 12 mmol/L (10-20); BUN (Urea Nitrogen) 22 mg/dL (8.4-25.7); Bilirubin, Total 0.6 mg/dL (0.2-1.2); Calc. Creatinine Clearance 0 mL/min (70-130); Calcium 9.2 mg/dL (7.8-10.44); Carbon Dioxide 28 mmol/L (23-31); Chloride 104 mmol/L (98-107); Estimated GFR 53; Globulin 3.2 g/dL (2.4-3.5); Glucose 166 mg/dL (83-110); Potassium 3.7 mmol/L (3.5-5.1); Protein, Total 6.6 g/dL (5.8-8.1); Sodium 140 mmol/L (136-145)
[2024-07-10] MEDS ORDERED: Albuterol 2.5 MG (0.5 mL) NEB ONE (16:45)
[2024-07-10] MEDS ORDERED: Albuterol 2.5 MG (3 mL) NEB ONE (16:45)
[2024-07-10 16:50] LABS: Burr Cells SLIGHT = 2-5 cells HPF (0-1); Eosinophils 1 % (0-10); Lymphocytes 14 % (21-51); Monocytes 5 % (0-10); Neutrophil 80 % (42-75); Ovalocytes SLIGHT = 2-5 cells HPF (0-1); Platelet Adequacy Comment Platelets Normal; Polychromasia SLIGHT = 2-3 cells HPF (0-2)
== END 2024-07-10 19:26 | disposition home or self-care (01) ==
LOC: ERS 15:21
DX: J44.1 Chronic obstructive pulmonary disease with (acute) exacerbation (principal); I11.0 Hypertensive heart disease with heart failure; I50.9 Heart failure, unspecified; F17.210 Nicotine dependence, cigarettes, uncomplicated; F17.220 Nicotine dependence, chewing tobacco, uncomplicated
CPT/HCPCS: 71045; 80053; 83880; 84484; 85025; 93005; 94644; 94760; J1940; J2919; 36415; 96374; 96375; J7611

== ENCOUNTER 2024-07-14 21:37 | Emergency (ER) | payer MEDICARE, OTHER ==
[2024-07-14] MEDS ORDERED: methylPREDNISolone Sod Succ/PF 125 MG/2 ML VIAL ONE (23:11)
[2024-07-14] MEDS ORDERED: Ipratropium/Albuterol 3 ML NEB ONE (23:11)
[2024-07-14 23:33] LABS: Hemoglobin 10.8 g/dL (14.0-18.0); Mean Corpuscular HGB CONC 32.7 g/dL (32.0-36.0); Mean Corpuscular Hemoglobin 30.6 pg (27.0-31.0); Mean Corpuscular Volume 93.5 fL (78.0-98.0); Mean Platelet Volume 11.2 fL (7.4-10.4); Platelet Count 144 10x3/uL (130-400); RBC Distribution Width 12.7 % (11.5-14.5); Red Blood Cell (RBC) Count 3.53 mill/uL (4.70-6.10)
[2024-07-14 23:46] LABS: ALT (SGPT) 47 U/L (8-55); AST (SGOT) 34 U/L (5-34); Albumin 3.1 g/dL (3.4-4.8); Alkaline Phosphatase 59 U/L (40-110); Anion Gap 13 mmol/L (10-20); BUN (Urea Nitrogen) 35 mg/dL (8.4-25.7); Bilirubin, Total 0.6 mg/dL (0.2-1.2); Calc. Creatinine Clearance 0 mL/min (70-130); Calcium 8.7 mg/dL (7.8-10.44); Carbon Dioxide 28 mmol/L (23-31); Chloride 102 mmol/L (98-107); Estimated GFR 48; Globulin 2.8 g/dL (2.4-3.5); Glucose 107 mg/dL (83-110); Potassium 3.2 mmol/L (3.5-5.1); Protein, Total 5.9 g/dL (5.8-8.1); Sodium 140 mmol/L (136-145)
[2024-07-14 23:52] LABS: Troponin I 0.117 ng/mL (< 0.028)
[2024-07-14 23:53] LABS: Large Platelets 5.9 % (0-5); Lymphocytes 26 % (21-51); Monocytes 10 % (0-10); Neutrophil 61 % (42-75); Platelet Adequacy Comment Platelets Normal; RBC Morphology Within Normal Limits; Reactive Lymphocytes 2 % (0-10); Smudge Cells 8.9 %
[2024-07-15] MEDS ORDERED: Dexamethasone 10 MG/ML VIAL ONE (00:37)
== END 2024-07-15 01:46 | disposition home or self-care (01) ==
LOC: ERS 21:37
DX: J43.9 Emphysema, unspecified (principal); J44.1 Chronic obstructive pulmonary disease with (acute) exacerbation; I25.2 Old myocardial infarction; I11.0 Hypertensive heart disease with heart failure; I50.9 Heart failure, unspecified; F17.210 Nicotine dependence, cigarettes, uncomplicated; F17.220 Nicotine dependence, chewing tobacco, uncomplicated
CPT/HCPCS: 71045; 80053; 83880; 84484; 85025; 93005; 94760; J2919; 36415; 94640; 96372; J1100; J7620

== ENCOUNTER 2024-07-19 12:48 | Emergency (ER) | payer MEDICARE, OTHER ==
[2024-07-19] MEDS ORDERED: Ipratropium/Albuterol 3 ML NEB ONE (13:05)
[2024-07-19 13:33] LABS: #Basophils Less than 0.03 10x3/uL (0.0-0.2); %Basophils 0.2 % (0.0-1.0); %Eosinophils 1.2 % (0.0-10.0); %Lymphocytes 14.4 % (21.0-51.0); %Monocytes 10.8 % (0.0-10.0); Hematocrit 35.6 % (42.0-52.0); Hemoglobin 11.6 g/dL (14.0-18.0); Mean Corpuscular HGB CONC 32.6 g/dL (32.0-36.0); Mean Corpuscular Hemoglobin 30.4 pg (27.0-31.0); Mean Corpuscular Volume 93.4 fL (78.0-98.0); Mean Platelet Volume 11.2 fL (7.4-10.4); Platelet Count 143 10x3/uL (130-400); RBC Distribution Width 12.6 % (11.5-14.5); Red Blood Cell (RBC) Count 3.81 mill/uL (4.70-6.10)
[2024-07-19] MEDS ORDERED: Magnesium 2 GM/50 ML BAG (IN WATER) ONE (13:50)
[2024-07-19] MEDS ORDERED: methylPREDNISolone Sod Succ/PF 125 MG/2 ML VIAL ONE (13:50)
[2024-07-19 14:00] LABS: ALT (SGPT) 62 U/L (8-55); AST (SGOT) 60 U/L (5-34); Albumin 2.9 g/dL (3.4-4.8); Alkaline Phosphatase 63 U/L (40-110); Anion Gap 12 mmol/L (10-20); BUN (Urea Nitrogen) 31 mg/dL (8.4-25.7); Bilirubin, Total 0.6 mg/dL (0.2-1.2); Calc. Creatinine Clearance 0 mL/min (70-130); Calcium 8.5 mg/dL (7.8-10.44); Carbon Dioxide 27 mmol/L (23-31); Chloride 107 mmol/L (98-107); Estimated GFR 54; Globulin 2.9 g/dL (2.4-3.5); Glucose 138 mg/dL (83-110); Potassium 3.5 mmol/L (3.5-5.1); Protein, Total 5.8 g/dL (5.8-8.1); Sodium 142 mmol/L (136-145)
[2024-07-19 14:03] LABS: Troponin I 0.125 ng/mL (< 0.028)
== END 2024-07-19 17:07 | disposition home or self-care (01) ==
LOC: ERS 12:48
DX: J44.1 Chronic obstructive pulmonary disease with (acute) exacerbation (principal); I11.0 Hypertensive heart disease with heart failure; I50.9 Heart failure, unspecified; I25.2 Old myocardial infarction; F17.210 Nicotine dependence, cigarettes, uncomplicated; J43.9 Emphysema, unspecified; Z95.0 Presence of cardiac pacemaker; Z86.73 Personal history of transient ischemic attack (TIA), and cerebral infarction without residual deficits
CPT/HCPCS: 71045; 80053; 83880; 84484; 85025; 93005; 94640; 96374; 96375; 99285; J2919; J3475; 36415; J7620

== ENCOUNTER 2024-07-29 15:34 | Emergency (ER) | payer OTHER ==
[2024-07-29] MEDS ORDERED: methylPREDNISolone Sod Succ/PF 125 MG/2 ML VIAL ONE (15:47)
[2024-07-29] MEDS ORDERED: Furosemide 40 MG (4 mL) VIAL ONE (15:50)
[2024-07-29 16:03] LABS: Actual Bicarbonate (HCO3v) 25.6 mEq/L (22-28); Analyzer IN Cardio ER; Base Excess -7.3 mEq/L (-2.0 to +3.0); Calcium, Ionized (venous) 1.13 mmol/L (1.16-1.32); Chloride (VBG) 99 mmol/L (98-106); Hematocrit-VBG 36 % (42.0-52.0); Hemoglobin (Hb) 12.4 g/dL (12.6-17.4); Sodium 139 mmol/L (133-146)
[2024-07-29] MEDS ORDERED: Magnesium 2 GM/50 ML BAG (IN WATER) ONE (16:05)
[2024-07-29 16:14] LABS: #Basophils 0.05 10x3/uL (0.0-0.2); %Basophils 0.3 % (0.0-1.0); %Eosinophils 0.8 % (0.0-10.0); %Monocytes 6.7 % (0.0-10.0); %Neutrophils 65.5 % (42.0-75.0); Hematocrit 39.1 % (42.0-52.0); Hemoglobin 11.6 g/dL (14.0-18.0); Mean Corpuscular HGB CONC 29.7 g/dL (32.0-36.0); Mean Corpuscular Hemoglobin 29.9 pg (27.0-31.0); Mean Corpuscular Volume 100.8 fL (78.0-98.0); Mean Platelet Volume 11.6 fL (7.4-10.4); Platelet Count 107 10x3/uL (130-400); RBC Distribution Width 13.5 % (11.5-14.5); Red Blood Cell (RBC) Count 3.88 mill/uL (4.70-6.10)
[2024-07-29] MEDS ORDERED: Albuterol 2.5 MG (3 mL) NEB ONE (16:17)
[2024-07-29] MEDS ORDERED: Albuterol 2.5 MG (0.5 mL) NEB ONE (16:17)
[2024-07-29 16:25] LABS: INR-International Normal Ratio 1.3; Prothrombin Time 16.6 sec (12.0-14.7)
[2024-07-29 16:26] LABS: PTT 31.6 sec (22.9-36.1)
[2024-07-29 16:27] LABS: ALT (SGPT) 50 U/L (8-55); AST (SGOT) 65 U/L (5-34); Albumin 3.3 g/dL (3.4-4.8); Alkaline Phosphatase 159 U/L (40-110); Anion Gap 18 mmol/L (10-20); BUN (Urea Nitrogen) 24 mg/dL (8.4-25.7); Bilirubin, Total 1.5 mg/dL (0.2-1.2); CK (CPK) 91 U/L (30-200); Calc. Creatinine Clearance 0 mL/min (70-130); Calcium 8.7 mg/dL (7.8-10.44); Carbon Dioxide 22 mmol/L (23-31); Chloride 101 mmol/L (98-107); Estimated GFR 43; Globulin 3.4 g/dL (2.4-3.5); Glucose 212 mg/dL (83-110); Lipase 48 U/L (8-78); Magnesium 2.4 mg/dL (1.6-2.6); Potassium 4.1 mmol/L (3.5-5.1); Protein, Total 6.7 g/dL (5.8-8.1); Sodium 137 mmol/L (136-145)
[2024-07-29 16:28] LABS: Acetaminophen Less than 10 mcg/mL (Less than 10); Alcohol Less than 10.0 mg/dL (Less than 10); Salicylate Less than 8.0 mg/dL (Less than 8.0)
[2024-07-29] MEDS ORDERED: Piperacillin/Tazobactam 4.5 GM VIAL ONE (16:28)
[2024-07-29] MEDS ORDERED: Vancomycin 1 GM/200 ML (FROZEN) BAG ONE (16:28)
[2024-07-29] MEDS ORDERED: Sodium Chloride 0.9% 100 ML ONE (16:28)
[2024-07-29 16:33] LABS: Troponin I 0.173 ng/mL (< 0.028)
[2024-07-29 19:26] LABS: Lactic Acid 4.84 mmol/L (0.5-2.2)
== END 2024-07-29 19:31 | disposition short-term general hospital (02) ==
LOC: ERS 15:34
DX: J44.0 Chronic obstructive pulmonary disease with (acute) lower respiratory infection (principal); J18.9 Pneumonia, unspecified organism; J44.1 Chronic obstructive pulmonary disease with (acute) exacerbation; I11.0 Hypertensive heart disease with heart failure; I50.9 Heart failure, unspecified; F17.210 Nicotine dependence, cigarettes, uncomplicated
CPT/HCPCS: 71045; 80053; 80307; 82550; 82805; 83605; 83690; 83735; 83880; 84484; 85025; 85610; 85730; 87040; 87428; 93005; 94660; 94760; 96374; 96375; 99285; J1940; J2543; J2919; J3370; J3475; 36415; J7611

== ENCOUNTER 2024-08-08 07:18 | Emergency (ER) | payer OTHER ==
[2024-08-08] MEDS ORDERED: Ipratropium/Albuterol 3 ML NEB ONE (07:50)
[2024-08-08] MEDS ORDERED: chlorproMAZINE HCl 50 MG/2 ML AMP SLOW IVP SCH (08:00)
[2024-08-08 08:17] LABS: #Basophils 0.04 10x3/uL (0.0-0.2); %Basophils 0.4 % (0.0-1.0); %Eosinophils 0.7 % (0.0-10.0); %Lymphocytes 15.9 % (21.0-51.0); %Monocytes 14.7 % (0.0-10.0); %Neutrophils 64.3 % (42.0-75.0); Hematocrit 43.2 % (42.0-52.0); Hemoglobin 13.7 g/dL (14.0-18.0); Mean Corpuscular HGB CONC 31.7 g/dL (32.0-36.0); Mean Corpuscular Hemoglobin 29.3 pg (27.0-31.0); Mean Corpuscular Volume 92.5 fL (78.0-98.0); Mean Platelet Volume 11.5 fL (7.4-10.4); Platelet Count 141 10x3/uL (130-400); RBC Distribution Width 13.1 % (11.5-14.5); Red Blood Cell (RBC) Count 4.67 mill/uL (4.70-6.10)
[2024-08-08 08:26] LABS: ALT (SGPT) 53 U/L (8-55); AST (SGOT) 48 U/L (5-34); Albumin 3.2 g/dL (3.4-4.8); Alkaline Phosphatase 99 U/L (40-110); Anion Gap 16 mmol/L (10-20); BUN (Urea Nitrogen) 33 mg/dL (8.4-25.7); Bilirubin, Total 1.5 mg/dL (0.2-1.2); Calc. Creatinine Clearance 0 mL/min (70-130); Calcium 8.5 mg/dL (7.8-10.44); Carbon Dioxide 29 mmol/L (23-31); Chloride 94 mmol/L (98-107); Estimated GFR 59; Globulin 3.7 g/dL (2.4-3.5); Glucose 90 mg/dL (83-110); Potassium 3.9 mmol/L (3.5-5.1); Protein, Total 6.9 g/dL (5.8-8.1); Sodium 135 mmol/L (136-145)
[2024-08-08 08:31] LABS: Troponin I 0.153 ng/mL (< 0.028)
== END 2024-08-08 14:03 | disposition home or self-care (01) ==
LOC: ERS 07:18
DX: R06.6 Hiccough (principal); R05.9 Cough, unspecified; I11.0 Hypertensive heart disease with heart failure; I50.9 Heart failure, unspecified; J44.9 Chronic obstructive pulmonary disease, unspecified; F17.210 Nicotine dependence, cigarettes, uncomplicated; Z79.51 Long term (current) use of inhaled steroids
CPT/HCPCS: 71045; 80053; 83880; 84484; 85025; 93005; J3230; 36415; 96372; J7620

== ENCOUNTER 2024-08-14 17:45 | Emergency (ER) | payer OTHER ==
[2024-08-14 19:22] LABS: #Basophils Less than 0.03 10x3/uL (0.0-0.2); %Basophils 0.1 % (0.0-1.0); %Eosinophils 0.3 % (0.0-10.0); %Monocytes 7.4 % (0.0-10.0); %Neutrophils 84.6 % (42.0-75.0); Hemoglobin 10.7 g/dL (14.0-18.0); Mean Corpuscular HGB CONC 32.4 g/dL (32.0-36.0); Mean Corpuscular Hemoglobin 30.1 pg (27.0-31.0); Mean Platelet Volume 12.6 fL (7.4-10.4); Platelet Count 106 10x3/uL (130-400); RBC Distribution Width 13.1 % (11.5-14.5); Red Blood Cell (RBC) Count 3.55 mill/uL (4.70-6.10)
[2024-08-14 19:38] LABS: ALT (SGPT) 35 U/L (Less than 45); AST (SGOT) 44 U/L (11-34); Albumin 2.7 g/dL (3.1-4.5); Alkaline Phosphatase 77 U/L (40-110); Anion Gap 12 mmol/L (10-20); BUN (Urea Nitrogen) 23 mg/dL (8.4-25.7); Bilirubin, Total 0.6 mg/dL (0.3-1.2); Calc. Creatinine Clearance 0 mL/min (70-130); Calcium 8.6 mg/dL (7.8-10.44); Carbon Dioxide 23 mmol/L (23-31); Chloride 105 mmol/L (98-107); Estimated GFR 51; Globulin 3.4 g/dL (2.4-3.5); Glucose 89 mg/dL (83-110); Potassium 4.5 mmol/L (3.5-5.1); Protein, Total 6.1 g/dL (5.8-8.1); Sodium 135 mmol/L (136-145)
== END 2024-08-14 19:28 | disposition short-term general hospital (02) ==
LOC: ERS 17:45
DX: T82.598A Other mechanical complication of other cardiac and vascular devices and implants, initial encounter (principal); I11.0 Hypertensive heart disease with heart failure; I50.9 Heart failure, unspecified; F17.210 Nicotine dependence, cigarettes, uncomplicated; F17.220 Nicotine dependence, chewing tobacco, uncomplicated; Z55.0 Illiteracy and low-level literacy
CPT/HCPCS: 36415; 71045; 80053; 83880; 85025

== ENCOUNTER 2024-08-27 16:03 | Emergency (ER) | payer OTHER, MEDICARE ==
[2024-08-27] MEDS ORDERED: Ipratropium/Albuterol 3 ML NEB ONE (16:21)
[2024-08-27 17:18] LABS: Hematocrit 40.1 % (42.0-52.0); Hemoglobin 12.9 g/dL (14.0-18.0); Mean Corpuscular HGB CONC 32.2 g/dL (32.0-36.0); Mean Corpuscular Hemoglobin 29.4 pg (27.0-31.0); Mean Corpuscular Volume 91.3 fL (78.0-98.0); Mean Platelet Volume 9.9 fL (7.4-10.4); Platelet Count 279 10x3/uL (130-400); RBC Distribution Width 12.9 % (11.5-14.5); Red Blood Cell (RBC) Count 4.39 mill/uL (4.70-6.10)
[2024-08-27 17:19] LABS: Acetaminophen Less than 10 mcg/mL (Less than 10); Alcohol Less than 10.0 mg/dL (Less than 10); Salicylate Less than 8.0 mg/dL (Less than 8.0)
[2024-08-27 17:20] LABS: ALT (SGPT) 45 U/L (Less than 45); AST (SGOT) 58 U/L (11-34); Albumin 3.4 g/dL (3.1-4.5); Alkaline Phosphatase 95 U/L (40-110); Anion Gap 20 mmol/L (10-20); BUN (Urea Nitrogen) 39 mg/dL (8.4-25.7); Bilirubin, Total 1.1 mg/dL (0.3-1.2); Calc. Creatinine Clearance 0 mL/min (70-130); Calcium 9.4 mg/dL (7.8-10.44); Carbon Dioxide 31 mmol/L (23-31); Chloride 91 mmol/L (98-107); Estimated GFR 46; Globulin 4.1 g/dL (2.4-3.5); Glucose 114 mg/dL (83-110); Potassium 3.4 mmol/L (3.5-5.1); Protein, Total 7.5 g/dL (5.8-8.1); Sodium 139 mmol/L (136-145)
[2024-08-27 17:24] LABS: Troponin I 0.177 ng/mL (< 0.028)
[2024-08-27] MEDS ORDERED: methylPREDNISolone Sod Succ/PF 125 MG/2 ML VIAL ONE (17:26)
[2024-08-27 17:39] LABS: Band 1 % (5-11); Large Platelets 5.8 % (0-5); Lymphocytes 2 % (21-51); Monocytes 10 % (0-10); Neutrophil 88 % (42-75); Platelet Adequacy Comment Platelets Normal; Polychromasia SLIGHT = 2-3 cells HPF (0-2); Smudge Cells 6.7 %; Target Cells SLIGHT = 2-5 cells HPF (0-1)
[2024-08-27 18:03] LABS: Bacteria/HPF None Seen HPF (None Seen); Bilirubin Negative (Negative); Blood, Urine Negative (Negative); CAUTI Indications for Culture Dysuria,urgency,freq; Clarity Clear (Clear); Glucose, Urine (Dipstick) Normal (Negative); Ketone, Urine Negative (Negative); Leukocyte Negative Leu/uL (Negative); Nitrite Negative (Negative); Protein, Urine (Dipstick) Negative (Neg-Trace); RBC/HPF 0-3 HPF (0-3); Specific Gravity, Urine 1.008 (1.002-1.036); Squamous Epithelial 0-3 HPF (0-3); Urobilinogen Normal mg/dL (Less than 2); WBC/HPF 0-3 HPF (0-3)
[2024-08-27 18:06] LABS: Urine Culture Reflex No No
[2024-08-27 18:12] LABS: Amphetamine Not Detected (NotDetected); Barbiturates Screen Not Detected (NotDetected); Benzodiazepine Screen Not Detected (NotDetected); Cocaine Metabolite Screen Detected (NotDetected); Methadone Not Detected (NotDetected); Methamphetamine Not Detected (NotDetected); Opiate Screen Not Detected (NotDetected); Oxycodone Screen Not Detected (NotDetected); Phencyclidine (PCP) Not Detected (NotDetected); THC/Cannabinoid Screen Not Detected (NotDetected); Tricyclic Screen Not Detected (NotDetected)
== END 2024-08-27 20:53 | disposition home or self-care (01) ==
LOC: ERS 16:03
DX: J44.1 Chronic obstructive pulmonary disease with (acute) exacerbation (principal); I11.0 Hypertensive heart disease with heart failure; I50.9 Heart failure, unspecified; I25.2 Old myocardial infarction; J43.9 Emphysema, unspecified; F17.220 Nicotine dependence, chewing tobacco, uncomplicated; Z86.73 Personal history of transient ischemic attack (TIA), and cerebral infarction without residual deficits; Z79.51 Long term (current) use of inhaled steroids; Z79.899 Other long term (current) drug therapy
CPT/HCPCS: 71045; 80053; 80306; 80307; 81001; 83880; 84484; 85025; 93005; 94760; J2919; 36415; 96374; J7620

== ENCOUNTER 2024-11-10 16:05 | Emergency (ER) | payer OTHER, MEDICAID ==
[2024-11-10 17:07] LABS: ALT (SGPT) 24 U/L (Less than 45); AST (SGOT) 43 U/L (11-34); Albumin 2.9 g/dL (3.1-4.5); Alkaline Phosphatase 70 U/L (40-110); Anion Gap 10 mmol/L (10-20); BUN (Urea Nitrogen) 27 mg/dL (8.4-25.7); Bilirubin, Total 0.6 mg/dL (0.3-1.2); Calc. Creatinine Clearance 0 mL/min (70-130); Calcium 8.8 mg/dL (7.8-10.44); Carbon Dioxide 30 mmol/L (23-31); Chloride 102 mmol/L (98-107); Estimated GFR 58; Glucose 84 mg/dL (83-110); Magnesium 1.9 mg/dL (1.6-2.6); Potassium 3.3 mmol/L (3.5-5.1); Protein, Total 5.9 g/dL (5.8-8.1); Sodium 139 mmol/L (136-145)
[2024-11-10 17:09] LABS: Troponin I 0.157 ng/mL (< 0.028)
[2024-11-10 17:22] LABS: Anisocytosis SLIGHT = 6-15 cells HPF (0-5); Eosinophils 2 % (0-10); Large Platelets 2.9 % (0-5); Lymphocytes 13 % (21-51); Macrocytosis SLIGHT = 6-15 cells HPF (0-5); Metamyelocyte 1 % (0-0); Monocytes 8 % (0-10); Neutrophil 75 % (42-75); Platelet Adequacy Comment Platelets Normal; Poikilocytosis SLIGHT = 6-15 cells HPF (0-5); Polychromasia MODERATE = 3-4 cells HPF (0-2); Rouleaux Formation SLIGHT = 1-5 cells HPF (None Seen); Smudge Cells 5.9 %
[2024-11-10 17:34] LABS: #Basophils 0.04 10x3/uL (0.0-0.2); %Basophils 0.6 % (0.0-1.0); %Eosinophils 1.2 % (0.0-10.0); %Lymphocytes 16.2 % (21.0-51.0); %Monocytes 13.6 % (0.0-10.0); %Neutrophils 68.1 % (42.0-75.0); Hematocrit 32.9 % (42.0-52.0); Hemoglobin 10.6 g/dL (14.0-18.0); Mean Corpuscular HGB CONC 32.2 g/dL (32.0-36.0); Mean Corpuscular Hemoglobin 29.3 pg (27.0-31.0); Mean Corpuscular Volume 90.9 fL (78.0-98.0); Mean Platelet Volume 11.7 fL (7.4-10.4); Platelet Count 145 10x3/uL (130-400); RBC Distribution Width 13.8 % (11.5-14.5); Red Blood Cell (RBC) Count 3.62 mill/uL (4.70-6.10)
== END 2024-11-10 19:49 | disposition short-term general hospital (02) ==
LOC: ERS 16:05
DX: T82.198A Other mechanical complication of other cardiac electronic device, initial encounter (principal); I11.0 Hypertensive heart disease with heart failure; I50.9 Heart failure, unspecified; I25.2 Old myocardial infarction; J44.9 Chronic obstructive pulmonary disease, unspecified; Z86.73 Personal history of transient ischemic attack (TIA), and cerebral infarction without residual deficits; Z95.0 Presence of cardiac pacemaker; F17.210 Nicotine dependence, cigarettes, uncomplicated; Z79.899 Other long term (current) drug therapy; Z79.51 Long term (current) use of inhaled steroids; Z55.6 Problems related to health literacy
CPT/HCPCS: 36415; 71045; 80053; 83735; 84484; 85025; 93005

== ENCOUNTER 2025-02-09 15:40 | Emergency (ER) | payer MEDICARE, OTHER ==
[2025-02-09] MEDS ORDERED: HYDROcodone/Acetaminophen 5/325 mg Tablet ONE (15:55)
[2025-02-09 17:14] LABS: #Basophils Less than 0.03 10x3/uL (0.0-0.2); #Eosinophils 0.07 10x3/uL (0.0-0.7); #Monocytes 0.61 10x3/uL (0.11-0.59); #Neutrophils 9.19 10x3/uL (1.40-6.50); %Basophils 0.1 % (0.0-1.0); %Eosinophils 0.7 % (0.0-10.0); %Lymphocytes 4.9 % (21.0-51.0); %Monocytes 5.8 % (0.0-10.0); %Neutrophils 86.7 % (42.0-75.0); Hematocrit 33.9 % (42.0-52.0); Hemoglobin 10.7 g/dL (14.0-18.0); Mean Corpuscular Hemoglobin 28.1 pg (27.0-31.0); Mean Corpuscular Volume 89.0 fL (78.0-98.0); Platelet Count 167 10x3/uL (130-400); Red Blood Cell (RBC) Count 3.81 mill/uL (4.70-6.10); White Blood Cell (WBC) Count 10.59 10x3/uL (4.8-10.8)
[2025-02-09 17:50] LABS: ALT (SGPT) 28 U/L (Less than 45); AST (SGOT) 44 U/L (11-34); Albumin 3.1 g/dL (3.1-4.5); Alkaline Phosphatase 88 U/L (40-110); Anion Gap 14 mmol/L (10-20); BUN (Urea Nitrogen) 15 mg/dL (8.4-25.7); Bilirubin, Total 0.6 mg/dL (0.3-1.2); Calc. Creatinine Clearance 0 mL/min (70-130); Calcium 8.6 mg/dL (7.8-10.44); Carbon Dioxide 24 mmol/L (23-31); Chloride 104 mmol/L (98-107); Globulin 3.7 g/dL (2.4-3.5); Glucose 94 mg/dL (83-110); Potassium 4.2 mmol/L (3.5-5.1); Sodium 138 mmol/L (136-145)
== END 2025-02-09 21:09 | disposition home or self-care (01) ==
LOC: ERS 15:40
DX: J44.1 Chronic obstructive pulmonary disease with (acute) exacerbation (principal); I11.0 Hypertensive heart disease with heart failure; I50.9 Heart failure, unspecified; I25.2 Old myocardial infarction; Z86.73 Personal history of transient ischemic attack (TIA), and cerebral infarction without residual deficits; Z95.5 Presence of coronary angioplasty implant and graft; F17.210 Nicotine dependence, cigarettes, uncomplicated; Z95.0 Presence of cardiac pacemaker; Z79.51 Long term (current) use of inhaled steroids; Z79.899 Other long term (current) drug therapy
CPT/HCPCS: 36415; 71045; 80053; 83880; 85025; 93005

== ENCOUNTER 2025-02-19 13:20 | Emergency (ER) | payer MEDICARE, OTHER ==
[2025-02-19 14:28] LABS: ALT (SGPT) 31 U/L (Less than 45); AST (SGOT) 54 U/L (11-34); Albumin 3.0 g/dL (3.1-4.5); Alkaline Phosphatase 86 U/L (40-110); Anion Gap 16 mmol/L (10-20); BUN (Urea Nitrogen) 11 mg/dL (8.4-25.7); Bilirubin, Total 0.6 mg/dL (0.3-1.2); Calc. Creatinine Clearance 0 mL/min (70-130); Calcium 8.3 mg/dL (7.8-10.44); Carbon Dioxide 22 mmol/L (23-31); Chloride 109 mmol/L (98-107); Globulin 3.1 g/dL (2.4-3.5); Glucose 166 mg/dL (83-110); Potassium 3.6 mmol/L (3.5-5.1); Sodium 143 mmol/L (136-145)
[2025-02-19 14:33] LABS: Troponin I 0.109 ng/mL (< 0.028)
[2025-02-19] MEDS ORDERED: cefTRIAXone (ROCEPHIN) 1 GM VIAL ONE (15:00)
[2025-02-19] MEDS ORDERED: Furosemide 40 MG (4 mL) VIAL ONE (15:00)
[2025-02-19 16:16] LABS: #Basophils Less than 0.03 10x3/uL (0.0-0.2); #Eosinophils 0.05 10x3/uL (0.0-0.7); #Monocytes 0.54 10x3/uL (0.11-0.59); #Neutrophils 7.02 10x3/uL (1.40-6.50); %Basophils 0.2 % (0.0-1.0); %Eosinophils 0.6 % (0.0-10.0); %Lymphocytes 5.5 % (21.0-51.0); %Monocytes 6.6 % (0.0-10.0); %Neutrophils 85.3 % (42.0-75.0); Hematocrit 30.6 % (42.0-52.0); Hemoglobin 10.1 g/dL (14.0-18.0); Mean Corpuscular Hemoglobin 28.5 pg (27.0-31.0); Mean Corpuscular Volume 86.2 fL (78.0-98.0); Platelet Count 129 10x3/uL (130-400); Red Blood Cell (RBC) Count 3.55 mill/uL (4.70-6.10); White Blood Cell (WBC) Count 8.23 10x3/uL (4.8-10.8)
[2025-02-19 16:53] LABS: Anisocytosis SLIGHT = 6-15 cells HPF (0-5); Burr Cells SLIGHT = 2-5 cells HPF (0-1); Macrocytosis SLIGHT = 6-15 cells HPF (0-5); Platelet Adequacy Comment Platelets Normal; Polychromasia SLIGHT = 2-3 cells HPF (0-2)
== END 2025-02-19 17:34 ==
LOC: ERS 13:20
DX: J44.1 Chronic obstructive pulmonary disease with (acute) exacerbation (principal); I11.0 Hypertensive heart disease with heart failure; I50.9 Heart failure, unspecified; I25.2 Old myocardial infarction; F17.210 Nicotine dependence, cigarettes, uncomplicated; Z86.73 Personal history of transient ischemic attack (TIA), and cerebral infarction without residual deficits; Z95.0 Presence of cardiac pacemaker; Z79.899 Other long term (current) drug therapy; Z79.51 Long term (current) use of inhaled steroids
CPT/HCPCS: 71045; 80053; 84484; 85025; 93005; 94640; 94760; J0696; J1940; J2919; 36415; 96374; 96375; J7620

== ENCOUNTER 2025-03-10 08:02 | Emergency (ER) | payer MEDICARE, OTHER ==
[2025-03-10 10:38] LABS: ALT (SGPT) 27 U/L (Less than 45); AST (SGOT) 47 U/L (11-34); Albumin 2.7 g/dL (3.1-4.5); Alkaline Phosphatase 79 U/L (40-110); Anion Gap 13 mmol/L (10-20); BUN (Urea Nitrogen) 17 mg/dL (8.4-25.7); Bilirubin, Total 0.8 mg/dL (0.3-1.2); Calc. Creatinine Clearance 0 mL/min (70-130); Calcium 8.0 mg/dL (7.8-10.44); Carbon Dioxide 29 mmol/L (23-31); Chloride 103 mmol/L (98-107); Globulin 2.6 g/dL (2.4-3.5); Glucose 84 mg/dL (83-110); Potassium 3.0 mmol/L (3.5-5.1); Sodium 142 mmol/L (136-145)
[2025-03-10 10:59] LABS: #Basophils Less than 0.03 10x3/uL (0.0-0.2); #Eosinophils 0.09 10x3/uL (0.0-0.7); #Monocytes 0.65 10x3/uL (0.11-0.59); #Neutrophils 4.04 10x3/uL (1.40-6.50); %Basophils 0.2 % (0.0-1.0); %Eosinophils 1.6 % (0.0-10.0); %Lymphocytes 15.0 % (21.0-51.0); %Monocytes 11.4 % (0.0-10.0); %Neutrophils 71.1 % (42.0-75.0); Hematocrit 29.4 % (42.0-52.0); Hemoglobin 9.7 g/dL (14.0-18.0); Mean Corpuscular Hemoglobin 27.7 pg (27.0-31.0); Mean Corpuscular Volume 84.0 fL (78.0-98.0); Platelet Count 129 10x3/uL (130-400); Red Blood Cell (RBC) Count 3.50 mill/uL (4.70-6.10); White Blood Cell (WBC) Count 5.68 10x3/uL (4.8-10.8)
== END 2025-03-10 12:15 | disposition home or self-care (01) ==
LOC: ERS 08:02
DX: R51.9 Headache, unspecified (principal); R07.89 Other chest pain; J43.9 Emphysema, unspecified; I11.0 Hypertensive heart disease with heart failure; I50.9 Heart failure, unspecified; F17.210 Nicotine dependence, cigarettes, uncomplicated; I25.2 Old myocardial infarction; Z86.73 Personal history of transient ischemic attack (TIA), and cerebral infarction without residual deficits; Z79.899 Other long term (current) drug therapy
CPT/HCPCS: 36415; 80053; 83880; 84484; 85025; 99284

== ENCOUNTER 2025-03-25 21:16 | Emergency (ER) | payer OTHER ==
[2025-03-25 23:16] LABS: #Basophils 0.03 10x3/uL (0.0-0.2); #Eosinophils 0.10 10x3/uL (0.0-0.7); #Monocytes 0.95 10x3/uL (0.11-0.59); #Neutrophils 6.21 10x3/uL (1.40-6.50); %Basophils 0.3 % (0.0-1.0); %Eosinophils 1.1 % (0.0-10.0); %Lymphocytes 16.2 % (21.0-51.0); %Monocytes 10.8 % (0.0-10.0); %Neutrophils 70.5 % (42.0-75.0); Hematocrit 35.9 % (42.0-52.0); Hemoglobin 11.4 g/dL (14.0-18.0); Mean Corpuscular Hemoglobin 26.3 pg (27.0-31.0); Mean Corpuscular Volume 82.9 fL (78.0-98.0); Platelet Count 183 10x3/uL (130-400); Red Blood Cell (RBC) Count 4.33 mill/uL (4.70-6.10); White Blood Cell (WBC) Count 8.82 10x3/uL (4.8-10.8)
[2025-03-25 23:32] LABS: INR-International Normal Ratio 1.1; PTT 30.4 sec (22.9-36.1); Prothrombin Time 13.8 sec (12.0-14.7)
[2025-03-25 23:38] LABS: ALT (SGPT) 31 U/L (Less than 45); AST (SGOT) 51 U/L (11-34); Albumin 3.5 g/dL (3.1-4.5); Alkaline Phosphatase 93 U/L (40-110); Anion Gap 13 mmol/L (10-20); BUN (Urea Nitrogen) 20 mg/dL (8.4-25.7); Bilirubin, Total 0.8 mg/dL (0.3-1.2); Calc. Creatinine Clearance 0 mL/min (70-130); Calcium 9.5 mg/dL (7.8-10.44); Carbon Dioxide 26 mmol/L (23-31); Chloride 102 mmol/L (98-107); Globulin 3.3 g/dL (2.4-3.5); Glucose 93 mg/dL (83-110); Potassium 4.1 mmol/L (3.5-5.1); Sodium 137 mmol/L (136-145)
[2025-03-26] MEDS ORDERED: Ondansetron PF 4 MG/2 ML Vial ONE (00:59)
[2025-03-26] MEDS ORDERED: Ketorolac Tromethamine 30 MG (1 mL) VIAL ONE (02:26)
[2025-03-26] MEDS ORDERED: Iopamidol-370 76% 500 ML MDV (1 ML CHARGE) ONE (12:43)
== END 2025-03-26 03:12 | disposition home or self-care (01) ==
LOC: ERS 21:16
DX: R20.2 Paresthesia of skin (principal); J43.9 Emphysema, unspecified; I11.0 Hypertensive heart disease with heart failure; I50.9 Heart failure, unspecified; I25.2 Old myocardial infarction; Z86.73 Personal history of transient ischemic attack (TIA), and cerebral infarction without residual deficits
CPT/HCPCS: 74177; 80053; 83605; 85025; 85610; 85730; 93005; 93971; J1885; J2405; 36415; 96374; 96375; Q9967

== ENCOUNTER 2025-03-31 14:38 | Emergency (ER) | payer OTHER ==
[2025-03-31 15:40] LABS: #Basophils 0.04 10x3/uL (0.0-0.2); #Eosinophils 0.07 10x3/uL (0.0-0.7); #Monocytes 0.72 10x3/uL (0.11-0.59); #Neutrophils 4.41 10x3/uL (1.40-6.50); %Basophils 0.6 % (0.0-1.0); %Eosinophils 1.1 % (0.0-10.0); %Lymphocytes 19.3 % (21.0-51.0); %Monocytes 11.0 % (0.0-10.0); %Neutrophils 67.4 % (42.0-75.0); Hematocrit 37.9 % (42.0-52.0); Hemoglobin 11.8 g/dL (14.0-18.0); Mean Corpuscular Hemoglobin 25.9 pg (27.0-31.0); Mean Corpuscular Volume 83.3 fL (78.0-98.0); Platelet Count 202 10x3/uL (130-400); Red Blood Cell (RBC) Count 4.55 mill/uL (4.70-6.10); White Blood Cell (WBC) Count 6.54 10x3/uL (4.8-10.8)
[2025-03-31 15:58] LABS: ALT (SGPT) 30 U/L (Less than 45); AST (SGOT) 51 U/L (11-34); Albumin 3.5 g/dL (3.1-4.5); Alkaline Phosphatase 91 U/L (40-110); Anion Gap 13 mmol/L (10-20); BUN (Urea Nitrogen) 14 mg/dL (8.4-25.7); Bilirubin, Total 0.7 mg/dL (0.3-1.2); Calc. Creatinine Clearance 0 mL/min (70-130); Calcium 9.4 mg/dL (7.8-10.44); Carbon Dioxide 28 mmol/L (23-31); Chloride 99 mmol/L (98-107); Globulin 3.7 g/dL (2.4-3.5); Glucose 91 mg/dL (83-110); Lipase 70 U/L (8-78); Potassium 4.0 mmol/L (3.5-5.1); Sodium 136 mmol/L (136-145)
[2025-03-31 16:02] LABS: INR-International Normal Ratio 1.0; Prothrombin Time 13.5 sec (12.0-14.7)
[2025-03-31 16:03] LABS: PTT 31.0 sec (22.9-36.1)
[2025-03-31] MEDS ORDERED: Ondansetron PF 4 MG/2 ML Vial ONE (16:53)
[2025-03-31] MEDS ORDERED: Acetaminophen 500 MG TAB ONE (18:26)
[2025-03-31 20:09] LABS: Bacteria/HPF None Seen HPF (None Seen); Glucose, Urine (Dipstick) Normal (Negative); Leukocyte Negative Leu/uL (Negative); Protein, Urine (Dipstick) 10 mg/dL (Neg-Trace); RBC/HPF None Seen HPF (0-3); Specific Gravity, Urine 1.018 (1.002-1.036); WBC/HPF 0-3 HPF (0-3)
== END 2025-04-01 01:48 | disposition home or self-care (01) ==
LOC: ERS 14:38
DX: J45.901 Unspecified asthma with (acute) exacerbation (principal); R11.2 Nausea with vomiting, unspecified; I11.0 Hypertensive heart disease with heart failure; I50.9 Heart failure, unspecified; I25.10 Atherosclerotic heart disease of native coronary artery without angina pectoris; I25.2 Old myocardial infarction; F17.210 Nicotine dependence, cigarettes, uncomplicated; Z79.899 Other long term (current) drug therapy; Z51.81 Encounter for therapeutic drug level monitoring
CPT/HCPCS: 71045; 80061; 81001; 83690; 83880; 84484; 85610; 85730; 93005; 96374; 96375; 99284; J2919; 36415; 80053; 84443; 85025

== ENCOUNTER 2025-04-05 13:42 | Outpatient (CLI) | payer OTHER | END 2025-04-05 13:43 | disposition home or self-care (01) | LOC: SCSRAD 13:42 | PROVIDERS: ATTEND Family Medicine | DX: J18.1 Lobar pneumonia, unspecified organism (principal); R91.8 Other nonspecific abnormal finding of lung field | CPT/HCPCS: 71046 ==

== ENCOUNTER 2025-04-13 08:03 | Emergency (ER) | payer OTHER ==
[2025-04-13] MEDS ORDERED: Magnesium 2 GM/50 ML BAG (IN WATER) ONE (08:43)
[2025-04-13 09:00] LABS: #Basophils Less than 0.03 10x3/uL (0.0-0.2); #Eosinophils 0.09 10x3/uL (0.0-0.7); #Monocytes 0.50 10x3/uL (0.11-0.59); #Neutrophils 5.79 10x3/uL (1.40-6.50); %Basophils 0.1 % (0.0-1.0); %Eosinophils 1.2 % (0.0-10.0); %Lymphocytes 13.2 % (21.0-51.0); %Monocytes 6.7 % (0.0-10.0); %Neutrophils 78.1 % (42.0-75.0); Hematocrit 31.2 % (42.0-52.0); Hemoglobin 9.6 g/dL (14.0-18.0); Mean Corpuscular Hemoglobin 26.7 pg (27.0-31.0); Mean Corpuscular Volume 86.7 fL (78.0-98.0); Platelet Count 130 10x3/uL (130-400); Red Blood Cell (RBC) Count 3.60 mill/uL (4.70-6.10); White Blood Cell (WBC) Count 7.42 10x3/uL (4.8-10.8)
[2025-04-13 09:12] LABS: ALT (SGPT) 25 U/L (Less than 45); AST (SGOT) 41 U/L (11-34); Albumin 2.9 g/dL (3.1-4.5); Alkaline Phosphatase 72 U/L (40-110); Anion Gap 11 mmol/L (10-20); BUN (Urea Nitrogen) 14 mg/dL (8.4-25.7); Bilirubin, Total 0.6 mg/dL (0.3-1.2); Calc. Creatinine Clearance 0 mL/min (70-130); Calcium 8.3 mg/dL (7.8-10.44); Carbon Dioxide 25 mmol/L (23-31); Chloride 114 mmol/L (98-107); Globulin 2.8 g/dL (2.4-3.5); Glucose 99 mg/dL (83-110); Potassium 3.6 mmol/L (3.5-5.1); Sodium 146 mmol/L (136-145)
[2025-04-13 10:19] LABS: Actual Bicarbonate (HCO3a) 22.4 mEq/L (22-28); Analyzer IN Cardio ER; Base Excess (BEa) -2.1 mEq/L (-2.0 to +3.0); CO2 Tension 37.2 mmHg (35.0-45.0); Calcium, Ionized (arterial) 1.18 mmol/L (1.12-1.30); Hematocrit-ABG 29 % (42.0-52.0); Hemoglobin (Hb) 10.0 g/dL (14.0-18.0); O2 Tension (PaO2), arterial 305.3 mmHg (> 70.0); Potassium - ABG Lab 3.48 mmol/L (3.70-5.30); pH, Arterial 7.398 (7.35-7.45)
[2025-04-13 10:25] LABS: Puncture Site Right Radial artery
[2025-04-13] MEDS ORDERED: Furosemide 20 MG (2 mL) VIAL ONE (10:56)
[2025-04-13] MEDS ORDERED: Acetaminophen 500 MG TAB ONE (12:55)
== END 2025-04-13 12:55 | disposition home or self-care (01) ==
LOC: ERS 08:03
DX: J44.1 Chronic obstructive pulmonary disease with (acute) exacerbation (principal); I11.0 Hypertensive heart disease with heart failure; I50.9 Heart failure, unspecified; J43.9 Emphysema, unspecified; I25.2 Old myocardial infarction; F17.290 Nicotine dependence, other tobacco product, uncomplicated; F17.210 Nicotine dependence, cigarettes, uncomplicated; Z79.899 Other long term (current) drug therapy; Z79.51 Long term (current) use of inhaled steroids; Z95.0 Presence of cardiac pacemaker
CPT/HCPCS: 36600; 71045; 80053; 82805; 83880; 84484; 85025; 87428; 93005; 96365; 96375; 99285; J1940; J2919; J3475

== ENCOUNTER 2025-05-02 15:46 | Emergency (ER) | payer MEDICARE, OTHER ==
[2025-05-02 16:55] LABS: #Basophils Less than 0.03 10x3/uL (0.0-0.2); #Eosinophils 0.06 10x3/uL (0.0-0.7); #Monocytes 0.56 10x3/uL (0.11-0.59); #Neutrophils 4.19 10x3/uL (1.40-6.50); %Basophils 0.4 % (0.0-1.0); %Eosinophils 1.1 % (0.0-10.0); %Lymphocytes 11.6 % (21.0-51.0); %Monocytes 10.1 % (0.0-10.0); %Neutrophils 75.9 % (42.0-75.0); Hematocrit 33.9 % (42.0-52.0); Hemoglobin 10.7 g/dL (14.0-18.0); Mean Corpuscular Hemoglobin 27.6 pg (27.0-31.0); Mean Corpuscular Volume 87.6 fL (78.0-98.0); Platelet Count 138 10x3/uL (130-400); Red Blood Cell (RBC) Count 3.87 mill/uL (4.70-6.10); White Blood Cell (WBC) Count 5.52 10x3/uL (4.8-10.8)
[2025-05-02 17:14] LABS: ALT (SGPT) 31 U/L (Less than 45); AST (SGOT) 56 U/L (11-34); Albumin 3.0 g/dL (3.1-4.5); Alkaline Phosphatase 84 U/L (40-110); Anion Gap 12 mmol/L (10-20); BUN (Urea Nitrogen) 13 mg/dL (8.4-25.7); Bilirubin, Total 0.5 mg/dL (0.3-1.2); Calc. Creatinine Clearance 0 mL/min (70-130); Calcium 8.6 mg/dL (7.8-10.44); Carbon Dioxide 27 mmol/L (23-31); Chloride 106 mmol/L (98-107); Globulin 3.1 g/dL (2.4-3.5); Glucose 118 mg/dL (83-110); Potassium 2.9 mmol/L (3.5-5.1); Sodium 142 mmol/L (136-145)
[2025-05-02] MEDS ORDERED: HYDROcodone/Acetaminophen 5/325 mg Tablet ONE (18:26)
== END 2025-05-02 20:15 | disposition home or self-care (01) ==
LOC: ERS 15:46
DX: T81.41XA Infection following a procedure, superficial incisional surgical site, initial encounter (principal); E87.6 Hypokalemia; I10 Essential (primary) hypertension; I50.9 Heart failure, unspecified; I25.2 Old myocardial infarction; J44.9 Chronic obstructive pulmonary disease, unspecified; F17.210 Nicotine dependence, cigarettes, uncomplicated; Z79.899 Other long term (current) drug therapy
CPT/HCPCS: 71045; 80053; 83605; 85025; 87040; 99284

== ENCOUNTER 2025-06-08 11:36 | Outpatient (CLI) | payer MEDICARE, OTHER | END 2025-06-08 11:37 | disposition home or self-care (01) | LOC: SCSRAD 11:36 → MERGE 11:36 → SCSRAD 11:37 | PROVIDERS: ATTEND Family Medicine | DX: R10.9 Unspecified abdominal pain (principal); M79.645 Pain in left finger(s) | CPT/HCPCS: 74019 ==

== ENCOUNTER → 2025-06-15 | Emergency (ER) | payer MEDICARE, OTHER ==
[~2025-06-15] MED LIST changes: +Albuterol 2.5 MG (3 mL) NEB ONE; -Heparin 1,000 UNITS/ML VIAL ONE
[2025-06-15 02:49] LABS: #Basophils Less than 0.03 10x3/uL (0.0-0.2); #Eosinophils Less than 0.03 10x3/uL (0.0-0.7); #Monocytes 1.13 10x3/uL (0.11-0.59); #Neutrophils 7.94 10x3/uL (1.40-6.50); %Basophils 0.1 % (0.0-1.0); %Eosinophils 0.1 % (0.0-10.0); %Lymphocytes 4.2 % (21.0-51.0); %Monocytes 11.8 % (0.0-10.0); %Neutrophils 82.9 % (42.0-75.0); Hematocrit 31.1 % (42.0-52.0); Hemoglobin 9.9 g/dL (14.0-18.0); Mean Corpuscular Hemoglobin 29.3 pg (27.0-31.0); Mean Corpuscular Volume 92.0 fL (78.0-98.0); Platelet Count 177 10x3/uL (130-400); Red Blood Cell (RBC) Count 3.38 mill/uL (4.70-6.10); White Blood Cell (WBC) Count 9.58 10x3/uL (4.8-10.8)
[2025-06-15 03:05] LABS: ALT (SGPT) 47 U/L (Less than 45); AST (SGOT) 54 U/L (11-34); Albumin 2.8 g/dL (3.1-4.5); Alkaline Phosphatase 59 U/L (40-110); Anion Gap 17 mmol/L (10-20); BUN (Urea Nitrogen) 19 mg/dL (8.4-25.7); Bilirubin, Total 0.9 mg/dL (0.3-1.2); Calc. Creatinine Clearance 0 mL/min (70-130); Calcium 9.6 mg/dL (7.8-10.44); Carbon Dioxide 23 mmol/L (23-31); Chloride 105 mmol/L (98-107); Globulin 3.7 g/dL (2.4-3.5); Glucose 117 mg/dL (83-110); Potassium 3.5 mmol/L (3.5-5.1); Sodium 141 mmol/L (136-145)
== END ==
LOC: ERS 01:54
DX: J44.1 Chronic obstructive pulmonary disease with (acute) exacerbation (principal); T82.897A Other specified complication of cardiac prosthetic devices, implants and grafts, initial encounter; I11.0 Hypertensive heart disease with heart failure; I50.9 Heart failure, unspecified; I25.2 Old myocardial infarction; F17.210 Nicotine dependence, cigarettes, uncomplicated; Z79.51 Long term (current) use of inhaled steroids; Z79.899 Other long term (current) drug therapy
CPT/HCPCS: 71045; 80053; 83880; 84484 ×2; 85025; 87428; 93005; J2919; J3010; 96374; J7611